=== PATIENT | female | born 1950 | race Caucasian/White ===

== ENCOUNTER → 2016-12-19 | Outpatient (CLI) | payer BC ==
--- NOTE | 2016-12-19 17:26 | CT ---
EXAMINATION TYPE: CT chest w con DATE OF EXAM: 12/19/2016 COMPARISON: NONE HISTORY: 66-year-old female Abnormal findings on CXR. TECHNIQUE: Contiguous axial scanning of the chest after the administration of 100 mL of Omnipaque 300 . Coronal/sagittal reconstructions performed. CT DLP: 447mGycm. Automatic exposure control utilized for a dose reduction. FINDINGS: The heart is normal size without pericardial effusion. Coronary vessel calcifications are present in remarkable for coronary artery disease. Mild atherosclerotic arch calcifications with conventional arch vessel branching anatomy. There is a 3.2 cm intermediate density mass (11.8 Hounsfield units) in the right para-aortic/preverte bral region of the lower thorax. No adjacent mass effect or bony destruction. Otherwise, no thoracic lymphadenopathy seen. Visualized upper abdomen with suspected cholelithiasis and partially visualized AAA measuring up to 3 .2 cm on coronal series. Cyst within the medial left kidney. There is moderate to severe centrilobular emphysema. Tiny patch of groundglass in the superior segmen t right lower lobe nonspecific could represent some interstitial scarring or a small infectious/infla mmatory focus. No consolidation or pleural effusion. Bones: Prior L3 vertebroplasty. Mild multilevel degenerative disc disease. Anterior endplate spondylo sis. No osseous destructive process. IMPRESSION: 1. COPD with moderate to severe emphysema. 2. A 3.2 cm intermediate density mass in the lower thoracic right para-aortic/prevertebral region. Di fferential considerations include an abnormally enlarged lymph node, congenital duplication cyst, and neurogenic/nerve sheath tumor. Contrast enhanced chest MRI could help determine if this lesion enhan alvaro. 3. AAA only partially visualized measuring up to at least 3.2 cm. Consider aortic ultrasound.
== END | disposition home or self-care (01) ==
LOC: RADCTMAIN 15:59
PROVIDERS: ATTEND Internal Medicine
DX: J43.9 Emphysema, unspecified (principal)
CPT/HCPCS: 71260; Q9967

== ENCOUNTER → 2017-02-01 | Outpatient (CLI) | payer OTHER ==
--- NOTE | 2017-02-01 09:09 | US ---
EXAMINATION TYPE: US duplex aorta DATE OF EXAM: 02/01/2017 COMPARISON: NONE CLINICAL HISTORY: I71.4 Abd Aneurysm Without Mention Of Rupture. 3.2cm AAA seen on recent CT, follow up u/s TECHNIQUE: Multiple sonographic images of the abdominal aorta were obtained. FINDINGS: EXAM MEASUREMENTS: Abdominal Aorta: Proximal: 3.1 x 2.3cm Mid: 2.5 x 2.8cm Distal: 2.5 x 2.3cm Bifurcation: wnl There is moderate atherosclerotic change seen within the abdominal aorta. Infrarenal fusiform aneurys m is present distally measuring 3.2 cm. ENGINE INSPECTOR NOTES: Some exam limitations assessing color flow due to anterior wall plaque formation, otherwise color flow appears wnl. IMPRESSION: Mild aneurysm of the upper abdominal aorta (3.1 cm) as well as a fusiform infrarenal AAA (3.2 cm).
== END | disposition home or self-care (01) ==
LOC: RADUSWWP 08:10
PROVIDERS: ATTEND Internal Medicine
DX: I71.4 Abdominal aortic aneurysm, without rupture (principal)
CPT/HCPCS: 93979

== ENCOUNTER → 2017-02-10 | Outpatient (CLI) | payer OTHER ==
[2017-02-10 19:56] LABS: Non-African American GFR(MDRD) >60 (>60 ml/min/1.73 sqM)
--- NOTE | 2017-02-11 10:18 | MR ---
MR chest with and without contrast HISTORY: Abnormal chest CT, mass and periaortic location Multiplanar multisequence and postcontrast images obtained through the chest following 14 cc MultiHan ce IV Correlation CT chest 12/19/2016 The cystic focus noted on CT is seen in the paraspinal location immediately right lateral to the aort a and anterior to the spine and measures approximately 3.6 x 2.7 x 2.8 cm. The lesion is uniformly T2 hyperintense, T1 hypointense. There is a smooth wall, the lesion is well localized and not infiltrat marlen. There is no appreciable contrast enhancement following gadolinium administration. No pleural eff usion. No evident bone involvement, bone marrow signal is maintained. IMPRESSION: Lesion shows nonaggressive characteristics. 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 Follow-up can be performed to assess for stability.
== END ==
LOC: RADMRIMAIN 19:22
PROVIDERS: ATTEND Surgery
DX: J98.8 Other specified respiratory disorders (principal)
CPT/HCPCS: 82565; 71552; A9577

== ENCOUNTER 2017-03-16 13:23 | Inpatient (IN) | payer OTHER ==
[2017-03-16] MEDS ORDERED: IPRATROPIUM-ALBUTEROL 3 ML NEB INHALATION STA (13:50)
--- NOTE | 2017-03-16 13:54 | ED ---
General Adult HPI - General Chief complaint: Shortness of Breath Stated complaint: Shortness of breath Time Seen by Provider: 03/16/17 13:36 Source: patient, RN notes reviewed Mode of arrival: ambulatory Limitations: no limitations - History of Present Illness Initial comments: Patient is a pleasant [age]-year-old female presenting to the emergency department difficulty breathing. Onset of symptoms was a week ago. Patient did have cough with occasional sputum, no color. Cough has improved. Dyspnea remains. Patient did see a physician on Monday and was given antibiotic, steroid, and inhaler. Patient get some improvement with inhaler. No fever. No chest pain. - Related Data Home Medications Medication Instructions Recorded Confirmed Albuterol Inhaler [Ventolin Hfa 2 puff INHALATION RT-Q6H PRN 03/16/17 03/16/17 Inhaler] Aspirin 325 mg PO DAILY 03/16/17 03/16/17 Levofloxacin [Levaquin] 500 mg PO DAILY 03/16/17 03/16/17 predniSONE See Taper PO DIRECTED 03/16/17 03/16/17 Allergies Allergy/AdvReac Type Severity Reaction Status Date / Time No Known Allergies Allergy Verified 03/16/17 13:51 Review of Systems ROS Statement: Those systems with pertinent positive or pertinent negative responses have been documented in the HPI. ROS Other: All systems not noted in ROS Statement are negative. Constitutional: Denies: fever Eyes: Denies: eye pain ENT: Denies: ear pain Respiratory: Reports: dyspnea Cardiovascular: Denies: chest pain Endocrine: Reports: fatigue Gastrointestinal: Denies: abdominal pain Genitourinary: Denies: dysuria Musculoskeletal: Denies: back pain Skin: Denies: rash Neurological: Denies: weakness Past Medical History Additional Past Medical History / Comment(s): vascular disease History of Any Multi-Drug Resistant Organisms: None Reported Past Surgical History: Hysterectomy, Orthopedic Surgery, Tonsillectomy Additional Past Surgical History / Comment(s): ectopic preg, right shoulder, kyphoplasty Past Psychological History: No Psychological Hx Reported Smoking Status: Current every day smoker Past Alcohol Use History: None Reported Past Drug Use History: None Reported General Exam Limitations: no limitations General appearance: alert, in no apparent distress Head exam: Present: atraumatic Eye exam: Present: normal appearance, PERRL ENT exam: Present: normal oropharynx Neck exam: Present: normal inspection Respiratory exam: Present: decreased breath sounds (Throughout) Cardiovascular Exam: Present: regular rate, normal rhythm GI/Abdominal exam: Present: soft. Absent: tenderness Extremities exam: Absent: pedal edema, calf tenderness Neurological exam: Present: alert Psychiatric exam: Present: normal affect, normal mood Skin exam: Absent: rash Course Vital Signs 03/16/17 03/16/17 03/16/17 13:24 14:06 15:01 Temperature 97.7 F Pulse Rate 70 54 L Respiratory 26 H 22 Rate Blood Pressure 176/82 O2 Sat by Pulse 94 L Oximetry 03/16/17 03/16/17 15:08 15:50 Temperature Pulse Rate 60 62 Respiratory 18 Rate Blood Pressure 137/78 O2 Sat by Pulse 94 L Oximetry EKG Findings - EKG Comments: EKG Findings:: Normal sinus rhythm 63. NC 114. QRS 86. QT 388. QTC 397. Left axis. Normal QRS. Normal ST-T. Medical Decision Making - Medical Decision Making Patient reexamined in updated. Case discussed with Dr. morales, who will admit for Dr. Wolff. - Lab Data Result diagrams: 03/16/17 13:55 03/16/17 13:55 Lab Results 03/16/17 03/16/17 03/16/17 Range/Units 13:55 13:55 13:55 WBC 7.1 (3.8-10.6) k/uL RBC 4.64 (3.80-5.40) m/uL Hgb 14.3 (11.4-16.0) gm/dL Hct 43.6 (34.0-46.0) % MCV 94.0 (80.0-100.0) fL MCH 30.8 (25.0-35.0) pg MCHC 32.8 (31.0-37.0) g/dL RDW 13.0 (11.5-15.5) % Plt Count 281 (150-450) k/uL Neutrophils % 79 % Lymphocytes % 11 % Monocytes % 4 % Eosinophils % 5 % Basophils % 1 % Neutrophils # 5.6 (1.3-7.7) k/uL Lymphocytes # 0.8 L (1.0-4.8) k/uL Monocytes # 0.3 (0-1.0) k/uL Eosinophils # 0.3 (0-0.7) k/uL Basophils # 0.0 (0-0.2) k/uL PT (9.0-12.0) sec INR (<1.2) APTT (22.0-30.0) sec D-Dimer (<0.60) mg/L FEU Sodium 140 (137-145) mmol/L Potassium 4.4 (3.5-5.1) mmol/L Chloride 105 (98-107) mmol/L Carbon Dioxide 25 (22-30) mmol/L Anion Gap 10 mmol/L BUN 15 (7-17) mg/dL Creatinine 0.70 (0.52-1.04) mg/dL Est GFR (MDRD) Af Amer >60 (>60 ml/min/1.73 sqM) Est GFR (MDRD) Non-Af >60 (>60 ml/min/1.73 sqM) Glucose 95 (74-99) mg/dL Calcium 9.8 (8.4-10.2) mg/dL Total Bilirubin 0.4 (0.2-1.3) mg/dL AST 20 (14-36) U/L ALT 32 (9-52) U/L Alkaline Phosphatase 76 (38-126) U/L Total Creatine Kinase 46 (30-135) U/L CK-MB (CK-2) 1.0 (0.0-2.4) ng/mL CK-MB (CK-2) Rel Index 2.2 Troponin I <0.012 (0.000-0.034) ng/mL NT-Pro-B Natriuret Pep pg/mL Total Protein 6.7 (6.3-8.2) g/dL Albumin 3.8 (3.5-5.0) g/dL 03/16/17 03/16/17 Range/Units 13:55 13:55 WBC (3.8-10.6) k/uL RBC (3.80-5.40) m/uL Hgb (11.4-16.0) gm/dL Hct (34.0-46.0) % MCV (80.0-100.0) fL MCH (25.0-35.0) pg MCHC (31.0-37.0) g/dL RDW (11.5-15.5) % Plt Count (150-450) k/uL Neutrophils % % Lymphocytes % % Monocytes % % Eosinophils % % Basophils % % Neutrophils # (1.3-7.7) k/uL Lymphocytes # (1.0-4.8) k/uL Monocytes # (0-1.0) k/uL Eosinophils # (0-0.7) k/uL Basophils # (0-0.2) k/uL PT 10.4 (9.0-12.0) sec INR 1.0 (<1.2) APTT 23.2 (22.0-30.0) sec D-Dimer 1.84 H (<0.60) mg/L FEU Sodium (137-145) mmol/L Potassium (3.5-5.1) mmol/L Chloride (98-107) mmol/L Carbon Dioxide (22-30) mmol/L Anion Gap mmol/L BUN (7-17) mg/dL Creatinine (0.52-1.04) mg/dL Est GFR (MDRD) Af Amer (>60 ml/min/1.73 sqM) Est GFR (MDRD) Non-Af (>60 ml/min/1.73 sqM) Glucose (74-99) mg/dL Calcium (8.4-10.2) mg/dL Total Bilirubin (0.2-1.3) mg/dL AST (14-36) U/L ALT (9-52) U/L Alkaline Phosphatase (38-126) U/L Total Creatine Kinase (30-135) U/L CK-MB (CK-2) (0.0-2.4) ng/mL CK-MB (CK-2) Rel Index Troponin I (0.000-0.034) ng/mL NT-Pro-B Natriuret Pep 248 pg/mL Total Protein (6.3-8.2) g/dL Albumin (3.5-5.0) g/dL - Radiology Data Radiology results: report reviewed (Computed tomography scan of the chest shows small peripheral pulmonary embolism right middle lobe. Emphysematous changes. Bronchial wall thickening.), image reviewed (Chest x-ray shows COPD changes.) Critical Care Time Critical Care Time: Yes Total Critical Care Time: 32 Disposition Clinical Impression: Acute exacerbation of chronic obstructive airways disease, Pulmonary embolus Disposition: ADMITTED IP TO THIS HOSP Referrals: Ovidio Rogel MD [Primary Care Provider] - 1-2 days Decision Time: 15:57
[2017-03-16 14:13] LABS: Basophils % (A) 1 %; CH 30.5; CHCM 32.6; Eosinophils # (A) 0.3 k/uL (0-0.7); Eosinophils % (A) 5 %; HCT 43.6 % (34.0-46.0); HDW 2.59; HGB 14.3 gm/dL (11.4-16.0); Luc # (Auto) 0.09; Luc % (Auto) 1; Lymphocytes # (A) 0.8 k/uL (1.0-4.8); Lymphocytes % (A) 11 %; MCH 30.8 pg (25.0-35.0); MCHC 32.8 g/dL (31.0-37.0); Mean Platelet Volume 6.9; Monocytes # (A) 0.3 k/uL (0-1.0); Monocytes % (A) 4 %; Neutrophils # (A) 5.6 k/uL (1.3-7.7); Neutrophils % (A) 79 %; RBC 4.64 m/uL (3.80-5.40); WBC 7.1 k/uL (3.8-10.6); WBC (Perox) 7.64
[2017-03-16 14:24] LABS: ALT 32 U/L (9-52); AST 20 U/L (14-36); Alkaline Phosphatase 76 U/L (38-126); Anion Gap 10 mmol/L; Blood Urea Nitrogen 15 mg/dL (7-17); Calcium 9.8 mg/dL (8.4-10.2); Carbon Dioxide 25 mmol/L (22-30); Chloride 105 mmol/L (98-107); Glucose 95 mg/dL (74-99); Non-African American GFR(MDRD) >60 (>60 ml/min/1.73 sqM); Potassium 4.4 mmol/L (3.5-5.1); Sodium 140 mmol/L (137-145); Total Bilirubin 0.4 mg/dL (0.2-1.3); Total Protein 6.7 g/dL (6.3-8.2)
[2017-03-16 14:31] LABS: Partial Thromboplastin Time 23.2 sec (22.0-30.0)
[2017-03-16 14:35] LABS: Prothrombin Time 10.4 sec (9.0-12.0)
--- NOTE | 2017-03-16 14:37 | XR ---
EXAMINATION TYPE: XR chest 2V DATE OF EXAM: 03/16/2017 COMPARISON: CT 12/19/2016 HISTORY: 66 year-old female shortness of breath for one week, difficulty breathing TECHNIQUE: PA and lateral views FINDINGS: Heart is normal size. Mild elongation of the thoracic aorta. Strandy atelectasis in the lower lungs. There is very mild central peribronchial cuffing. Upper lung lucencies and hyperinflation. No consol idation or pleural effusion. Fixation screw proximal right humerus. IMPRESSION: COPD with moderate to severe emphysema. No acute process seen.
[2017-03-16 14:38] LABS: Creatine Kinase 46 U/L (30-135)
[2017-03-16] MEDS ORDERED: RX INFO: IV CONTRAST WAS GIVEN 1 EACH MISC MISCELLANE PRN (14:43)
[2017-03-16 14:51] LABS: Troponin I <0.012 ng/mL (0.000-0.034)
--- NOTE | 2017-03-16 15:27 | CT ---
EXAMINATION TYPE: CT angio chest DATE OF EXAM: 03/16/2017 COMPARISON: 12/19/2016 HISTORY: 66-year-old female with shortness of breath x 1 week. TECHNIQUE: Contiguous axial scanning of the chest performed with IV Contrast, patient injected with 8 0 mL of Omnipaque 350. Coronal/sagittal MIP reconstructions performed. CT DLP: 181.00 mGycm Automated exposure control for dose reduction was used. FINDINGS: The heart is normal size without pericardial effusion. Coronary vessel calcifications are present and are a marker for coronary artery disease. Ascending aorta borderline ectatic at 3.5 cm. There is conventional branching anatomy. Satisfactory opacification of the pulmonary arterial system. There is a small filling defect noted wi thin the distal segmental and subsegmental branch of the right middle lobe pulmonary artery, axial im ages 87 and 88. No additional pulmonary embolus is seen. No thoracic lymphadenopathy. Stable 3.2 cm right sided paravertebral mass in the lower thorax. 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 Evaluation of the lungs shows moderately advanced centrilobular emphysema. There is mild diffuse bron chial wall thickening, slightly increased from prior. Minimal residual groundglass remains in the pos terior right lower lobe, axial image 70. Strandy atelectasis in the inferior lingula. No consolidatio n or pleural effusion. Cyst within the left kidney. Bones: Fixation screw in the proximal right humerus. Endplate spondylosis mid thoracic spine with acc entuated thoracic kyphosis. No osseous destructive process. IMPRESSION: 1. VERY SMALL PERIPHERAL PULMONARY EMBOLUS LOCATED IN A DISTAL SEGMENTAL AND SUBSEGMENTAL BRANCH OF T HE RIGHT MIDDLE LOBE PULMONARY ARTERY. 2. MODERATE TO ADVANCED CENTRILOBULAR EMPHYSEMA. BRONCHIAL WALL THICKENING APPEARS INCREASED FROM RAOUL OR EXAM AND COULD REPRESENT SUPERIMPOSED ASTHMA OR ACUTE BRONCHITIS AND MAY ACCOUNT FOR THE PATIENT'S SYMPTOMS. 3. 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 4. CONSIDER A ONE-YEAR FOLLOW-UP FOR SOME GROUNDGLASS IN THE RIGHT LOWER LOBE. ADENOMATOUS HYPERPLASI A IS WITHIN THE DIFFERENTIAL. Impressions #1 and #[address] Tan in the ER at 3:25 PM.
[2017-03-16] MEDS ORDERED: HEPARIN SODIUM,PORCINE 5,000 UNIT/ML 1 ML VIAL IV ONE (15:57)
[2017-03-16] MEDS ORDERED: methylPREDNISolone SOD SUCCI 125 MG/2 ML VIAL IV STA (15:57)
[2017-03-16] MEDS ORDERED: HEPARIN SODIUM,PORCINE 5,000 UNIT/ML 1 ML VIAL IV PRN (15:57)
[2017-03-16] MEDS ORDERED: IPRATROPIUM-ALBUTEROL 3 ML NEB INHALATION PRN (15:57)
[2017-03-16] MEDS: HEPARIN SODIUM,PORCINE/D5W PMX 25,000 UNIT in DEXTROSE/WATER 1 500ML.BAG IV SCH (16:17)
[2017-03-16] MEDS: IPRATROPIUM-ALBUTEROL 3 ML NEB INHALATION SCH ×2 (16:19→19:28)
--- NOTE | 2017-03-16 23:21 | P.HPIM ---
History of Present Illness H&P Date: 03/16/17 Chief Complaint: Shortness of breath This very pleasant 67-year-old female patient of Dr. Ovidio Shields with chronic stable medical conditions that include COPD, history of left lower extremity DVT , who presented to the emergency department with shortness of breath for about the past week. Endorses a cough with occasional sputum production, no color, short of breath. On Monday patient saw a physician in walk-in clinic and received antibiotics steroids and inhaler. The inhaler helped however she continue to be dyspneic. No complaints of fever, or chest pain. Review of Systems GEN.: [None] EYES: [None] HEENT: [None] NECK: [None] RESPIRATORY: [None] CARDIOVASCULAR: [None] GASTROINTESTINAL: [None] GENITOURINARY: [Leakage of urine] MUSCULOSKELETAL: [lumbar back pain] LYMPHATICS: [None] HEMATOLOGICAL: [None] PSYCHIATRY: [None] NEUROLOGICAL: [Numbness to her feet] Past Medical History Past Medical History: COPD, Deep Vein Thrombosis (DVT), Pneumonia, Vascular Disorder Additional Past Medical History / Comment(s): vascular disease, BRONCHITIS, PAST LT LEG DVT, UTERINE CANCER(SX ONLY), SHINGLES 1997, CATARACTS, AAA "NOT SURE OF SIZE" History of Any Multi-Drug Resistant Organisms: None Reported Past Surgical History: Back Surgery, Hysterectomy, Orthopedic Surgery, Tonsillectomy Additional Past Surgical History / Comment(s): ectopic preg, right shoulder, kyphoplasty Past Anesthesia/Blood Transfusion Reactions: No Reported Reaction Additional Psychological History / Comment(s): No psychiatric history Smoking Status: Current every day smoker Past Alcohol Use History: None Reported, Rare Additional Past Alcohol Use History / Comment(s): none to rare use Past Drug Use History: None Reported Additional Drug Use History / Comment(s): None - Past Family History Mother Family Medical History: Dementia, Hypertension Additional Family Medical History / Comment(s): ALZHEIMERS Father Family Medical History: Myocardial Infarction ([place]) Additional Family Medical History / Comment(s): AT AGE 59 FROM [place] Brother(s) Family Medical History: Myocardial Infarction ([place]) Additional Family Medical History / Comment(s): ALSO AT AGE 59 FROM [place] AND A 2ND BROTHER W/VASCULAR DISEASE. Sister(s) Family Medical History: Cancer Additional Family Medical History / Comment(s): LUNG CANCER(SMOKER) Medications and Allergies Home Medications Medication Instructions Recorded Confirmed Type Albuterol Inhaler [Ventolin Hfa 2 puff INHALATION RT-Q6H PRN 03/16/17 03/16/17 History Inhaler] Aspirin 325 mg PO DAILY 03/16/17 03/16/17 History Levofloxacin [Levaquin] 500 mg PO DAILY 03/16/17 03/16/17 History predniSONE See Taper PO DIRECTED 03/16/17 03/16/17 History Allergies Allergy/AdvReac Type Severity Reaction Status Date / Time No Known Allergies Allergy Verified 03/16/17 13:51 Physical Exam Vitals: Vital Signs Temp Pulse Pulse Resp BP BP Pulse Ox 03/16/17 20:00 98.3 F 64 17 143/81 92 L 03/16/17 19:37 68 03/16/17 19:29 61 03/16/17 18:28 97.6 F 55 L 20 136/70 97 03/16/17 17:48 98.6 F 59 L 18 131/73 94 L 03/16/17 16:26 60 18 155/85 95 03/16/17 15:50 62 18 137/78 94 L 03/16/17 15:08 60 03/16/17 15:01 54 L 03/16/17 14:06 22 03/16/17 13:24 97.7 F 70 26 H 176/82 94 L Intake and Output 03/16/17 03/16/17 03/16/17 06:59 14:59 22:59 Intake Total 98 Balance 98 Intake: Intake, IV Titration 98 Amount Heparin Sodium,Porcine/ 98 D5w Pmx 25,000 unit In Dextrose/Water 1 500ml. bag @ 18 UNITS/KG/HR 24. 49 mls/hr IV .[id number] [facility] Rx#:[id number] Other: Voiding Method Toilet Weight 68.039 kg Patient Weight 03/17/17 06:59 Weight 68.039 kg VITAL SIGNS: [Temperature 98.3, pulse 64, respiratory rate 17, blood pressure 143/81, oxygen saturation 92% on room air BMI 24.2 kg/m] GENERAL: [Average built, lying in bed, appears comfortable yet mildly fidgeting] . EYES: [Pupils equal. Conjunctiva angel]l. HEENT: [External appearance of nose and ears normal, oral cavity grossly normal] . NECK: [JVD not raised; masses not palpable]. HEART: [First and second heart sounds are normal; no edema]. LUNGS:[ Respiratory rate normal; inspiratory and expiratory wheezing noted bilaterally fair airway clearance]. ABDOMEN: [Soft, nontender, liver spleen not palpable, no masses palpable]. LYMPHATICS: [No lymph nodes palpable in the axilla and neck]. PSYCH: [Alert and oriented x3; mood and affect angel]l. NEUROLOGICAL: [Cranial nerves grossly intact; no facial asymmetry, power and sensation grossly intact]. Results CBC & Chem 7: 03/17/17 07:03 03/16/17 13:55 Labs: Abnormal Lab Results - Last 24 Hours (Table) 03/16/17 03/16/17 03/16/17 Range/Units 13:55 13:55 21:57 Lymphocytes # 0.8 L (1.0-4.8) k/uL APTT 57.5 H (22.0-30.0) sec D-Dimer 1.84 H (<0.60) mg/L FEU Assessment and Plan Plan: ASSESSMENT: -Acute pulmonary embolism right middle lobe in a patient with a history of deep vein thrombosis -Acute exacerbation of chronic obstructive pulmonary disease in a current smoker -IV heparin monitoring -Chronic nicotine dependence and a current smoker. PLAN: Home medications reordered, IV steroids breathing treatments and antibiotics initiated. Pulmonology consulted IV heparin initiated. Patient counseled at length on the need to quit smoking. Plan of care discussed the patient at the bedside and she is in agreement. We'll continue to follow closely.
[2017-03-16] MEDS: methylPREDNISolone SOD SUCCI 125 MG/2 ML VIAL IV SCH (23:36)
[2017-03-17] MEDS: methylPREDNISolone SOD SUCCI 125 MG/2 ML VIAL IV SCH ×3 (06:41→18:17)
[2017-03-17 06:44] LABS: Glucose,Whole Blood 130 mg/dL (75-99)
[2017-03-17 07:48] LABS: Basophils % (A) 0 %; CH 31.5; CHCM 33.2; Eosinophils % (A) 0 %; HCT 46.3 % (34.0-46.0); HDW 2.53; HGB 14.6 gm/dL (11.4-16.0); Luc # (Auto) 0.06; Luc % (Auto) 1; Lymphocytes % (A) 13 %; MCH 30.1 pg (25.0-35.0); MCHC 31.5 g/dL (31.0-37.0); MCV 95.5 fL (80.0-100.0); Mean Platelet Volume 7.4; Monocytes # (A) 0.2 k/uL (0-1.0); Monocytes % (A) 3 %; Neutrophils % (A) 83 %; RBC 4.85 m/uL (3.80-5.40); RDW 13.8 % (11.5-15.5); WBC 7.3 k/uL (3.8-10.6); WBC (Perox) 7.07
[2017-03-17] MEDS: IPRATROPIUM-ALBUTEROL 3 ML NEB INHALATION SCH ×4 (08:17→20:08)
[2017-03-17] MEDS: LEVOFLOXACIN 500 MG TAB PO SCH (09:05)
[2017-03-17] MEDS: HEPARIN SODIUM,PORCINE/D5W PMX 25,000 UNIT in DEXTROSE/WATER 1 500ML.BAG IV SCH (12:37)
--- NOTE | 2017-03-17 15:14 | US ---
EXAMINATION TYPE: US venous doppler duplex LE DATE OF EXAM: 03/17/2017 2:46 PM COMPARISON: NONE CLINICAL HISTORY: pulmonary embolism, swelling in left leg. SIDE PERFORMED: Bilateral TECHNIQUE: The lower extremity deep venous system is examined utilizing real time linear array sonog sawyer with graded compression, doppler sonography and color-flow sonography. VESSELS IMAGED: External Iliac Vein (EIV) Common Femoral Vein Deep Femoral Vein Greater Saphenous Vein * Femoral Vein Popliteal Vein Small Saphenous Vein * Proximal Calf Veins (* superficial vessels) Right Leg: Negative for DVT Left Leg: Negative for DVT. Positive for non-occluding SVT in the left greater saphenous vein. IMPRESSION: 1. No deep venous thrombosis lower extremities. 2. Note is made of nonoccluding thrombus within the greater saphenous vein in left leg, non deep veno us thrombosis.
--- NOTE | 2017-03-17 16:09 | P.CNPUL ---
History of Present Illness Consult date: 03/17/17 Reason for consult: dyspnea History of present illness: 66-year-old female patient female patient, with known history of COPD, who presented yesterday to emergency department because of worsening shortness of breath, cough, chest congestion and wheezing. Her presentation was typical of an acute COPD exacerbation. Her primary care physician is Dr. Wolff. Note that she has also a remote history of DVT of the left lower extremities that this occurred back in 2009. The patient back then received a course of anticoagulation for a total of 6 months with warfarin and subsequently that the granulation was stopped. She has peripheral vascular disease and chronic venous stasis in the left lower extremity today to along with some superficial varicose veins. In the burst department, computed tomography scan of the chest was done and it showed a questionable, very questionable small peripheral pulmonary embolism located in the distal segmental and subsegmental branch of the right middle lobe pulmonary artery. There was obvious advanced centrilobular emphysema and bronchial wall thickening. 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 The d-dimer was at 1.84. The Doppler of the lower extremity was done and showed a nonoccluding thrombus within the greater saphenous vein in the left lower extremity. The vein is of the superficial venous system, and the greater saphenous vein on the left. No deep vein thrombosis. No angina. No change in mental status. No hemoptysis. No pleurisy. Review of Systems Constitutional: Reports fatigue, Reports weakness Eyes: denies blurred vision, denies bulging eye, denies decreased vision Ears: deny: decreased hearing, ear discharge, earache, tinnitus Ears, nose, mouth and throat: Denies headache, Denies sore throat Cardiovascular: Denies chest pain, Denies shortness of breath Respiratory: Reports cough, Reports dyspnea, Reports wheezing Gastrointestinal: Denies abdominal pain, Denies diarrhea, Denies nausea, Denies vomiting Genitourinary: Denies dysuria, Denies hematuria Musculoskeletal: Denies myalgias Musculoskeletal: left: ankle swelling, absent: ankle pain, ankle stiffness Integumentary: Denies pruritus, Denies rash Neurological: Denies numbness, Denies weakness Psychiatric: Denies anxiety, Denies depression Endocrine: Denies fatigue, Denies weight change Past Medical History Past Medical History: COPD, Deep Vein Thrombosis (DVT), Pneumonia, Vascular Disorder Additional Past Medical History / Comment(s): COPD, peripheral vascular disease , left lower extremity DVT 2009, uterine cancer with a previous hysterectomy, shingles 1996, cataracts, questionable history of abdominal aortic aneurysm History of Any Multi-Drug Resistant Organisms: None Reported Past Surgical History: Back Surgery, Hysterectomy, Orthopedic Surgery, Tonsillectomy Additional Past Surgical History / Comment(s): ectopic preg, right shoulder, kyphoplasty Past Anesthesia/Blood Transfusion Reactions: No Reported Reaction Smoking Status: Current every day smoker - Past Family History Mother Family Medical History: Dementia, Hypertension Additional Family Medical History / Comment(s): ALZHEIMERS Father Family Medical History: Myocardial Infarction (MD) Additional Family Medical History / Comment(s): AT AGE 59 FROM [place] Brother(s) Family Medical History: Myocardial Infarction (MD) Additional Family Medical History / Comment(s): ALSO AT AGE 59 FROM [place] AND A 2ND BROTHER W/VASCULAR DISEASE. Sister(s) Family Medical History: Cancer Additional Family Medical History / Comment(s): LUNG CANCER(SMOKER) Medications and Allergies Home Medications Medication Instructions Recorded Confirmed Type Albuterol Inhaler [Ventolin Hfa 2 puff INHALATION RT-Q6H PRN 03/16/17 03/16/17 History Inhaler] Aspirin 325 mg PO DAILY 03/16/17 03/16/17 History Levofloxacin [Levaquin] 500 mg PO DAILY 03/16/17 03/16/17 History predniSONE See Taper PO DIRECTED 03/16/17 03/16/17 History Allergies Allergy/AdvReac Type Severity Reaction Status Date / Time No Known Allergies Allergy Verified 03/16/17 13:51 Physical Exam Vitals: Vital Signs Temp Pulse Pulse Resp BP BP BP 03/17/17 15:46 68 03/17/17 12:00 97.8 F 54 L 18 129/69 03/17/17 08:28 68 03/17/17 08:18 60 03/17/17 08:00 97.9 F 60 16 129/68 03/17/17 04:00 97.5 F L 56 L 18 155/74 03/17/17 00:00 67 16 126/61 03/16/17 20:00 98.3 F 64 17 143/81 03/16/17 19:37 68 09/21/17 19:29 61 03/16/17 18:28 97.6 F 55 L 20 136/70 03/16/17 17:48 98.6 F 59 L 18 131/73 03/16/17 16:26 60 18 155/85 Pulse Ox 03/17/17 15:46 03/17/17 12:00 03/17/17 08:28 03/17/17 08:18 94 L 03/17/17 08:00 94 L 03/17/17 04:00 96 03/17/17 00:00 93 L 03/16/17 20:00 92 L 03/16/17 19:37 03/16/17 19:29 03/16/17 18:28 97 03/16/17 17:48 94 L 03/16/17 16:26 95 Intake and Output 03/17/17 03/17/17 03/17/17 06:59 14:59 22:59 Intake Total 172.655 325.309 Output Total 1000 Balance 172.655 -674.691 Intake: Intake, IV Titration 172.655 325.309 Amount Heparin Sodium,Porcine/ 172.655 325.309 D5w Pmx 25,000 unit In Dextrose/Water 1 500ml. bag @ 18 UNITS/KG/HR 24. 49 mls/hr IV .[id number] [facility] Rx#:[id number] Output: Urine 1000 Other: Voiding Method Bedside Commode Toilet # Voids 1 0 Weight 67.7 kg Patient is calm and comfortable likely distress.Head exam was generally normal. There was no scleral icterus or corneal arcus. Mucous membranes were moist.Neck was supple and without jugular venous distension, thyromegaly, or carotid bruits. Carotids were easily palpable bilaterally. There was no adenopathy. Lung sounds are diminished in the strongest of expiratory phase of breathing and diffuse expiratory wheezes throughout lung beatty bilaterally.Cardiac exam revealed the PMI to be normally situated and sized. The rhythm was regular and no extrasystoles were noted during several minutes of auscultation. The first and second heart sounds were normal and physiologic splitting of the second heart sound was noted. There were no murmurs, rubs, clicks, or gallops.Abdominal exam revealed normal bowel sounds. The abdomen was soft, non- tender, and without masses, organomegaly, or appreciable enlargement of the abdominal aorta. Extremities show varicose veins in the lower extremities more so on the left. There is also evidence of chronic venous stasis. Left lower extremities slightly swollen compared to the right. Skin is negative for any ulcers or wounds or cellulitis. Skeletal examination shows no evidence of any arthritis or joint deformities. Results - Laboratory Findings CBC and BMP: 03/17/17 07:03 03/16/17 13:55 PT/INR, D-dimer PT 10.4 sec (9.0-12.0) 03/16/17 13:55 INR 1.0 (<1.2) 03/16/17 13:55 D-Dimer 1.84 mg/L FEU (<0.60) H 03/16/17 13:55 Abnormal lab findings: Abnormal Labs 03/16/17 03/16/17 03/16/17 13:55 13:55 21:57 Hct Lymphocytes # 0.8 L APTT 57.5 H D-Dimer 1.84 H POC Glucose (mg/dL) 03/17/17 03/17/17 03/17/17 06:42 07:03 07:03 Hct 46.3 H Lymphocytes # APTT 56.5 H D-Dimer POC Glucose (mg/dL) 130 H - Diagnostic Findings CT scan - chest: image reviewed Assessment and Plan Plan: Assessment 1 acute COPD exacerbation with secondary shortness of breath. The patient has advanced centrilobular emphysema based on the CAT scan findings. She is a chronic smoker. Her presentation is typical of an acute COPD exacerbation 2 questionable right-sided segmental and subsegmental pulmonary embolism based on CT angios the chest. The patient has a remote history of DVT of left lower extremity back in 2009 in the most current Doppler of the lower extremity showing a superficial thrombosis in the superficial saphenous system. There is no evidence of any deep vein thrombosis. Currently the patient IV heparin. D- dimer is mildly elevated 3 smoker 4 uterine cancer with previous hysterectomy 5 history of kyphoplasty CORINE Smoking cessation counseling was done. The patient was told that her COPD exacerbation is the main cause for shortness of breath. The findings on the CT angios the chest is not certain and possibility of pulmonary embolus and contributing to her shortness of breath is doubtful at this stage. Nevertheless based on the observed filling defects and observed thrombosis with an superficial veins of the left lower extremity, it's reasonable to put this patient in 3-6 months of anticoagulation and then stop. Recommend also elastic compression stockings or lower extremity especially on the left. Recommend outpatient follow-up regarding her COPD with poorly function test and further adjustments in her inhalers as maintenance. The patient will placed on DuoNeb breast units [id number]. The patient is completing a course of systemic steroids to be switched to prednisone burst taper over the next 24 hours. We' ll follow. Case was discussed with Dr. Shahid
--- NOTE | 2017-03-17 17:23 | P.PN ---
Progress Note - Text DATE OF SERVICE: 03/17/2017 PRESENTING COMPLAINT: shortness of breath HISTORY OF PRESENT ILLNESS: 67-year-old female presented with shortness of breath for about a week, cough with occasional sputum production, no color shortness of breath.imaging revealed pulmonary embolism right middle lobe. INTERVAL HISTORY: 03/17/2017: Patient sitting up in bed appears comfortable. Breathing easily. Heparin drip infusing.tolerating her dieteating between 50 and 75% of each meal, ambulating to and from the bathroom without difficulty, last BM prior to admission.patient was to be put on a novel anticoagulant however insurance does not cover it. We' ll explore other options with case management. REVIEW OF SYSTEMS: Done for constitutional ,cardiovascular, GI, pulmonary with relevant findings as above. CURRENT MEDICATIONS DuoNeb, Levaquin, Solu-Medrol heparin IV PHYSICAL EXAM VITAL SIGNS: temperature 98.3, pulse 55, respiratory rate 16, blood pressure 143/67, oxygen saturation 95% on room air. GENERAL APPEARANCE: sitting up in bed, appears comfortable. EYES: Pupils equal. Conjunctiva normal. NECK: JVD not raised. Mass not palpable. RESPIRATORY: Respiratory effort normal. Lungs diminished with expiratory wheezing throughout. CARDIOVASCULAR: First and second sounds normal. No edema. ABDOMEN: Soft. Liver and spleen not palpable. No tenderness. No mass palpable. PSYCHIATRY: Alert and oriented x3. Mood and affect normal. INVESTIGATIONS: White blood cell count7.3, APTT 56.5. ASSESSMENT: -acute pulmonary embolism, right middle lobe, in a patient with a history of deep vein thrombosis. -Acute exacerbation of chronic obstructive pulmonary disease in a current smoker. -IV heparin monitoring. -Chronic nicotine dependence in a current smoker. PLAN: IV steroids breathing treatments and antibiotics continue. IV heparin continues , we'll explore other options to make patient therapeutic to facilitate discharge.plan of care discussed with the patient the bedside she is agreeable. We'll continue to follow. [employer] statement: Patient was seen and examined by nurse practitioner Harper Meier and all elements of the case discussed with attending Dr. Shahid
[2017-03-17] MEDS: ENOXAPARIN 100 MG/ML SYRINGE SQ SCH (17:56)
[2017-03-17] MEDS ORDERED: WARFARIN 7.5 MG TAB PO SCH (18:00)
[2017-03-17 20:16] LABS: Glucose,Whole Blood 148 mg/dL (75-99)
[2017-03-17 21:21] VITALS: RESP 18
--- NOTE | 2017-03-17 23:22 | PN ---
PROGRESS NOTE DATE OF SERVICE: 03/17/2017 ATTENDING NOTE: This patient seen and examined by me. I discussed with nurse practitioner, Ms. Meier. Breathing is a bit better, lying in bed. EXAM: LUNGS: Decreased breath sounds. Mild prolonged expiration. White count 7.3. ASSESSMENT: 1. Acute chronic obstructive pulmonary disease exacerbation in a smoker. 2. Possible acute pulmonary embolism. 3. IV heparin monitoring. 4. Chronic nicotine dependence. PLAN: Patient counseled against smoking. Started on Coumadin. Discussed with Dr. Mcbride. Will see above if additional NOACs are covered by insurance so she can be discharged home with the same. MMODL / IJN: [id number] /
[2017-03-17] MEDS: methylPREDNISolone SOD SUCCI 40 MG/ML 1 ML VIAL IV SCH (23:35)
[2017-03-18 06:28] VITALS: BP 145/76; TEMP 97.6
[2017-03-18 07:41] LABS: Glucose,Whole Blood 93 mg/dL (75-99)
[2017-03-18] MEDS: IPRATROPIUM-ALBUTEROL 3 ML NEB INHALATION SCH ×2 (07:54→11:46)
[2017-03-18] MEDS: HEPARIN SODIUM,PORCINE/D5W PMX 25,000 UNIT in DEXTROSE/WATER 1 500ML.BAG IV SCH (08:09)
[2017-03-18] MEDS: methylPREDNISolone SOD SUCCI 40 MG/ML 1 ML VIAL IV SCH (08:11)
[2017-03-18] MEDS: LEVOFLOXACIN 500 MG TAB PO SCH (08:12)
[2017-03-18] MEDS: ENOXAPARIN 100 MG/ML SYRINGE SQ SCH (08:12)
[2017-03-18] MEDS: NICOTINE 7MG/24HR PATCH TRANSDERM SCH ×2 (08:13→08:18)
[2017-03-18 08:24] LABS: Basophils % (A) 0 %; CH 30.4; Eosinophils % (A) 0 %; HCT 46.6 % (34.0-46.0); HDW 2.47; HGB 15.1 gm/dL (11.4-16.0); Luc # (Auto) 0.06; Luc % (Auto) 1; Lymphocytes % (A) 8 %; MCH 30.8 pg (25.0-35.0); MCHC 32.3 g/dL (31.0-37.0); MCV 95.4 fL (80.0-100.0); Mean Platelet Volume 7.3; Monocytes # (A) 0.4 k/uL (0-1.0); Monocytes % (A) 3 %; Neutrophils # (A) 10.8 k/uL (1.3-7.7); Neutrophils % (A) 88 %; RBC 4.88 m/uL (3.80-5.40); RDW 12.9 % (11.5-15.5); WBC 12.2 k/uL (3.8-10.6); WBC (Perox) 12.64
[2017-03-18 12:34] LABS: Glucose,Whole Blood 115 mg/dL (75-99)
[2017-03-18 12:45] VITALS: BMI 24.0
[2017-03-18 13:25] VITALS: PULSE 65
--- NOTE | 2017-03-18 14:03 | P.PN ---
Subjective 66-year-old female patient female patient, with known history of COPD, who presented yesterday to emergency department because of worsening shortness of breath, cough, chest congestion and wheezing. Her presentation was typical of an acute COPD exacerbation. Her primary care physician is Dr. Wloff. Note that she has also a remote history of DVT of the left lower extremities that this occurred back in 2009. The patient back then received a course of anticoagulation for a total of 6 months with warfarin and subsequently that the granulation was stopped. She has peripheral vascular disease and chronic venous stasis in the left lower extremity today to along with some superficial varicose veins. In the burst department, computed tomography scan of the chest was done and it showed a questionable, very questionable small peripheral pulmonary embolism located in the distal segmental and subsegmental branch of the right middle lobe pulmonary artery. There was obvious advanced centrilobular emphysema and bronchial wall thickening. 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 The d-dimer was at 1.84. The Doppler of the lower extremity was done and showed a nonoccluding thrombus within the greater saphenous vein in the left lower extremity. The vein is of the superficial venous system, and the greater saphenous vein on the left. No deep vein thrombosis. No angina. No change in mental status. No hemoptysis. No pleurisy. On 03/15/2017 the patient is doing well without any significant complaints. She is being treated for acute COPD exacerbation. At the same time she is on Lovenox and she is also being Evaluated with warfarin regarding her questionable pulmonary embolism. Doppler of the lower extremities was done and the patient has a superficial vein thrombosis. Without is reasonable to anticoagulated patient accordingly. No complaints. No chest pain. No hemoptysis. No angina. No pleurisy. No hemoptysis. No other complaints otherwise. No other significant events over the past 24 hours Objective - Vital Signs Vital signs: Vital Signs Temp 97.6 F 03/18/17 06:27 Pulse 60 03/18/17 11:56 Resp 18 03/18/17 08:00 BP 145/76 03/18/17 06:27 Pulse Ox 95 03/18/17 06:27 Intake & Output 03/17/17 03/18/17 03/18/17 18:59 06:59 18:59 Intake Total 325.148 040 5872 Output Total 1000 2000 Balance -674.691 150 -920 Weight 67.7 kg 67.7 kg Intake: Intake, IV Titration 325.309 Amount Heparin Sodium,Porcine/ 325.309 D5w Pmx 25,000 unit In Dextrose/Water 1 500ml. bag @ 18 UNITS/KG/HR 24. 49 mls/hr IV .[id number] [facility] Rx#:[id number] Oral 150 1080 Output: Urine 1000 2000 Other: Voiding Method Toilet Toilet Toilet # Voids 2 1 3 - Exam Patient is calm and comfortable likely distress.Head exam was generally normal. There was no scleral icterus or corneal arcus. Mucous membranes were moist.Neck was supple and without jugular venous distension, thyromegaly, or carotid bruits. Carotids were easily palpable bilaterally. There was no adenopathy. Lung sounds are diminished in the strongest of expiratory phase of breathing and diffuse expiratory wheezes throughout lung beatty bilaterally.Cardiac exam revealed the PMI to be normally situated and sized. The rhythm was regular and no extrasystoles were noted during several minutes of auscultation. The first and second heart sounds were normal and physiologic splitting of the second heart sound was noted. There were no murmurs, rubs, clicks, or gallops.Abdominal exam revealed normal bowel sounds. The abdomen was soft, non- tender, and without masses, organomegaly, or appreciable enlargement of the abdominal aorta. Extremities show varicose veins in the lower extremities more so on the left. There is also evidence of chronic venous stasis. Left lower extremities slightly swollen compared to the right. Skin is negative for any ulcers or wounds or cellulitis. Skeletal examination shows no evidence of any arthritis or joint deformities. - Labs CBC & Chem 7: 03/18/17 07:38 03/16/17 13:55 Labs: Abnormal Lab Results - Last 24 Hours (Table) 03/17/17 03/18/17 03/18/17 Range/Units 20:14 07:38 12:32 WBC 12.2 H (3.8-10.6) k/uL Hct 46.6 H (34.0-46.0) % Neutrophils # 10.8 H (1.3-7.7) k/uL POC Glucose (mg/dL) 148 H 115 H (75-99) mg/dL Microbiology - Last 24 Hours (Table) 03/16/17 13:55 Blood Culture - Preliminary Blood No Growth after 24 hours Assessment and Plan Plan: Assessment 1 acute COPD exacerbation with secondary shortness of breath. The patient has advanced centrilobular emphysema based on the CAT scan findings. She is a chronic smoker. Her presentation is typical of an acute COPD exacerbation is clinically the patient is improving as a COPD exacerbation is being treated. 2 questionable right-sided segmental and subsegmental pulmonary embolism based on CT angios the chest. The patient has a remote history of DVT of left lower extremity back in 2009 in the most current Doppler of the lower extremity showing a superficial thrombosis in the superficial saphenous system. There is no evidence of any deep vein thrombosis. Currently the patient IV heparin. D- dimer is mildly elevated. I discussed the case with the hospitalist and the patient will be maintained on Coumadin for the next 3-6 months. Meanwhile bridging therapy with Lovenox was offered. 3 smoker 4 uterine cancer with previous hysterectomy 5 history of kyphoplasty CORINE Smoking cessation counseling was done. Continue the bronchodilators. Continue systemic steroids. Continue Lovenox. Warfarin anticoagulation and this can be also on outpatient basis if the patient has coverage for Lovenox. Anti- coagulation for a total of 6 months. We'll be glad to follow her up on outpatient basis.
--- NOTE | 2017-03-18 22:13 | P.DS ---
Providers Date of admission: 03/16/17 15:57 Expected date of discharge: 03/18/17 Attending physician: Junior Shahid Consults: 03/16/17 15:57 Consult Physician Routine Consulting Provider: Betty Mcbride Consult Reason/Comments: dyspnea, review ct please Do you want consulting provider notified?: Yes Primary care physician: [facility] Course: FINAL DIAGNOSES: -acute pulmonary embolism, right middle lobe, in a patient with a history of deep vein thrombosis. -Acute exacerbation of chronic obstructive pulmonary disease in a current smoker. -IV heparin monitoring. -Chronic nicotine dependence in a current smoker. HOSPTIAL COURSE: 67-year-old female with a history of COPD, and a remote history of DVT, who presented with shortness of breath for about a week cough and occasional sputum production with no color,, imaging revealed pulmonary embolus in the right middle lobe was admitted for the same. Pulmonology consulted, received treatment for COPD exacerbation and pulmonary embolism. Received bronchodilators, systemic steroids Lovenox and warfarin for anticoagulation needs. Anticoagulation will likely last for 6 months. Breathing improved, anticoagulation needs were met. Patient tolerated her diet, ambulate in the room and garcía ways, moved her bowels. Counseling for so smoking cessation was performed patient verbalized understanding. Overall condition stabilized and patient is stable for discharge. PHYSICAL EXAM: CARDIOVASCULAR: First and second sounds noted no edema RESPIRATORY: Respiratory effort normal, breath sounds diminished bilaterally Patient was seen and examined by nurse practitioner Harper Meier in all elements of the case discussed with attending Dr. Shahid DISPOSITION: Discharge home Patient Condition at Discharge: Stable Plan - Discharge Summary New Discharge Prescriptions: New Nicotine 7Mg/24Hr Patch [Habitrol] 1 patch TRANSDERM DAILY patch Ipratropium Campbell [Atrovent Hfa] 2 puff INHALATION QID #1 inhaler Warfarin [Coumadin] 5 mg PO DAILY #30 tab Enoxaparin [Lovenox] 100 mg SQ DAILY #5 syr Continue Albuterol Inhaler [Ventolin Hfa Inhaler] 2 puff INHALATION RT-Q6H PRN PRN Reason: Shortness Of Breath predniSONE See Taper PO DIRECTED #20 Discontinued Aspirin 325 mg PO DAILY Discharge Medication List Albuterol Inhaler [Ventolin Hfa Inhaler] 2 puff INHALATION RT-Q6H PRN 03/16/17 [ History] Enoxaparin [Lovenox] 100 mg SQ DAILY #5 syr 03/18/17 [Rx] Ipratropium Campbell [Atrovent Hfa] 2 puff INHALATION QID #1 inhaler 03/18/17 [Rx ] Nicotine 7Mg/24Hr Patch [Habitrol] 1 patch TRANSDERM DAILY patch 03/18/17 [Rx] Warfarin [Coumadin] 5 mg PO DAILY #30 tab 03/18/17 [Rx] predniSONE See Taper PO DIRECTED #20 03/18/17 [Rx] Follow up Appointment(s)/Referral(s): Ovidio Rogel MD [Primary Care Provider] - 3 Days (Patient to call Dr. Rogel's office Monday to schedule follow up appointment. The office is closed at time of discharge.) Betty Mcbride MD [STAFF PHYSICIAN] - 1 Week (Patient to call Dr. Mcbride's office Monday to schedule follow up appointment. The office is closed at time of discharge.) Ambulatory/Diagnostic Orders: Complete Blood Count w/diff [LAB.AMB] Time Frame: 03/21/17, Location: Determined By Patient Prothrombin Time INR [LAB.AMB] Time Frame: 03/21/17, Location: Determined By Patient Patient Instructions/Handouts: Ipratropium (By breathing), Prednisone (By mouth ), Warfarin (By mouth), Enoxaparin (By injection), COPD (Chronic Obstructive Pulmonary Disease) (DC) Activity/Diet/Wound Care/Special Instructions: elastic compression stockings particularly on the L lower extremity-give before dc start lovenox from 03/19/17 Discharge Disposition: HOME SELF-CARE
--- NOTE | 2017-03-19 14:27 | DS ---
DISCHARGE SUMMARY DATE OF SERVICE: 03/18/17. ATTENDING NOTE: Patient seen and examined by me. I discussed with my nurse practitioner Ms. Meier. The patient is doing better. Breathing is stable. EXAM: LUNGS: Improved air entry. CARDIOVASCULAR: First and second sounds normal. Patient is counseled about smoking. Patient will receive at least 3 months of anticoagulation. Care was discussed with the patient. FINAL DIAGNOSIS: Acute chronic obstructive pulmonary disease exacerbation along with acute pulmonary embolism. Going home on Coumadin with Lovenox overlap. Discharge planning more than 35 minutes. MMODL / IJN: [id number] /
== END 2017-03-18 15:05 | disposition home or self-care (01) | DRG 190 ==
LOC: EC 13:23 → 6SEL 15:57 → 5MS5E 03-17 10:57
PROVIDERS: ADMIT Hospitalist; ATTEND Hospitalist
DX: J44.1 Chronic obstructive pulmonary disease with (acute) exacerbation (principal); I26.99 Other pulmonary embolism without acute cor pulmonale; I82.492 Acute embolism and thrombosis of other specified deep vein of left lower extremity; F17.200 Nicotine dependence, unspecified, uncomplicated; I73.9 Peripheral vascular disease, unspecified; I83.90 Asymptomatic varicose veins of unspecified lower extremity; I87.8 Other specified disorders of veins; J43.2 Centrilobular emphysema; Z79.01 Long term (current) use of anticoagulants; Z79.82 Long term (current) use of aspirin; Z80.1 Family history of malignant neoplasm of trachea, bronchus and lung; Z82.0 Family history of epilepsy and other diseases of the nervous system; Z82.49 Family history of ischemic heart disease and other diseases of the circulatory system; Z85.42 Personal history of malignant neoplasm of other parts of uterus; Z90.710 Acquired absence of both cervix and uterus
CPT/HCPCS: 36415; 71020; 71275; 80053; 82550; 82553; 83880; 84484; 85025; 85379; 85610; 85730; 87040; 93005; 93970; 94640; 94760; 96365; 96366; 96375; 96376; 99291

== ENCOUNTER → 2017-04-06 | Outpatient (CLI) | payer MEDICARE, OTHER ==
--- NOTE | 2017-04-06 10:51 | MM ---
Reason for exam: screening (asymptomatic). Baseline mammogram. History: Patient is postmenopausal and has history of other cancer at age 29. Physical Findings: Nurse did not find any significant physical abnormalities on exam. MG Screening Mammo w CAD Bilateral CC and MLO view(s) were taken. There are scattered fibroglandular densities. Benign calcifications. There is no discrete abnormality. These results were verbally communicated with the patient and result sheet given to the patient on 04/06/17. ASSESSMENT: Benign, BI-RAD 2 RECOMMENDATION: Routine screening mammogram of both breasts in 1 year.
== END | disposition home or self-care (01) ==
LOC: RADMAMWWP 10:04
PROVIDERS: ATTEND Internal Medicine
DX: Z12.31 Encounter for screening mammogram for malignant neoplasm of breast (principal)

== ENCOUNTER 2017-09-28 11:12 | Observation (INO) | payer MEDICARE, OTHER ==
[2017-09-28] MEDS ORDERED: methylPREDNISolone SOD SUCCI 125 MG/2 ML VIAL IV STA (11:50)
[2017-09-28] MEDS ORDERED: IPRATROPIUM-ALBUTEROL 3 ML NEB INHALATION STA (11:50)
[2017-09-28 12:08] LABS: Basophils % (A) 0 %; Eosinophils % (A) 1 %; HCT 41.1 % (34.0-46.0); HGB 14.1 gm/dL (11.4-16.0); Lymphocytes # (A) 1.5 k/uL (1.0-4.8); Lymphocytes % (A) 31 %; MCH 29.4 pg (25.0-35.0); MCHC 34.3 g/dL (31.0-37.0); MCV 85.8 fL (80.0-100.0); Mean Platelet Volume 7.1; Monocytes # (A) 0.2 k/uL (0-1.0); Monocytes % (A) 4 %; Neutrophils # (A) 2.9 k/uL (1.3-7.7); Neutrophils % (A) 61 %; Platelet Count 277 k/uL (150-450); RBC 4.79 m/uL (3.80-5.40); RDW 13.2 % (11.5-15.5); WBC 4.7 k/uL (3.8-10.6)
[2017-09-28 12:23] LABS: INR 1.1 (<1.2); Partial Thromboplastin Time 26.7 sec (22.0-30.0); Prothrombin Time 10.7 sec (9.0-12.0)
--- NOTE | 2017-09-28 12:33 | ED ---
SOB HPI - General Chief Complaint: Shortness of Breath Stated Complaint: MIAN, Cough Time Seen by Provider: 09/28/17 11:20 Source: patient, RN notes reviewed Mode of arrival: wheelchair Limitations: no limitations - History of Present Illness Initial Comments: this is a 67-year-old female presents emergency Department chief complaint of shortness of breath. She's been having shortness of breath since Monday. Patient states she has known COPD. She does plan of a cough nonproductive denies any fever, chills, nasal congestion. Patient states that she has some tightness in her chest relates his back to her first of breath and wheezing. She uses inhalers at home she has no nebulizer treatments. Patient denies any nausea, vomiting, diaphoresis. Patient does have a history of blood clots states that she takes Xarelto daily. Patient denies any headache or dizziness denies any focal weakness. - Related Data Home Medications Medication Instructions Recorded Confirmed Albuterol Inhaler [Ventolin Hfa 2 puff INHALATION RT-Q6H PRN 09/28/17 09/28/17 Inhaler] Rivaroxaban [Xarelto] 20 mg PO W/SUPPER 09/28/17 09/28/17 Allergies Allergy/AdvReac Type Severity Reaction Status Date / Time No Known Allergies Allergy Verified 09/28/17 11:43 Review of Systems ROS Statement: Those systems with pertinent positive or pertinent negative responses have been documented in the HPI. ROS Other: All systems not noted in ROS Statement are negative. Past Medical History Past Medical History: Cancer, COPD, Deep Vein Thrombosis (DVT), Pneumonia, Pulmonary Embolus (PE), Vascular Disorder Additional Past Medical History / Comment(s): vascular disease, BRONCHITIS, PAST LT LEG DVT, UTERINE CANCER(SX ONLY), SHINGLES 1997, CATARACTS, AAA "NOT SURE OF SIZE" History of Any Multi-Drug Resistant Organisms: None Reported Past Surgical History: Back Surgery, Hysterectomy, Orthopedic Surgery, Tonsillectomy Additional Past Surgical History / Comment(s): ectopic preg, right shoulderSX, kyphoplasty, Past Anesthesia/Blood Transfusion Reactions: No Reported Reaction Past Psychological History: No Psychological Hx Reported Smoking Status: Current every day smoker Past Alcohol Use History: None Reported - Past Family History Mother Family Medical History: Dementia, Hypertension Additional Family Medical History / Comment(s): ALZHEIMERS Father Family Medical History: Myocardial Infarction ([place]) Additional Family Medical History / Comment(s): AT AGE 59 FROM [place] Brother(s) Family Medical History: Myocardial Infarction ([place]) Additional Family Medical History / Comment(s): ALSO AT AGE 59 FROM [place] AND A 2ND BROTHER W/VASCULAR DISEASE. Sister(s) Family Medical History: Cancer Additional Family Medical History / Comment(s): LUNG CANCER(SMOKER) General Exam Limitations: no limitations General appearance: alert, in no apparent distress Head exam: Present: atraumatic, normocephalic, normal inspection Eye exam: Present: normal appearance, PERRL, EOMI. Absent: scleral icterus, conjunctival injection, periorbital swelling ENT exam: Present: normal exam, normal oropharynx, mucous membranes moist Neck exam: Present: normal inspection, full ROM. Absent: tenderness, meningismus, lymphadenopathy Respiratory exam: Present: respiratory distress (mild), wheezes, decreased breath sounds. Absent: normal lung sounds bilaterally, rales, rhonchi, stridor Cardiovascular Exam: Present: regular rate, normal rhythm, normal heart sounds. Absent: systolic murmur, diastolic murmur, rubs, gallop, clicks GI/Abdominal exam: Present: soft, normal bowel sounds. Absent: distended, tenderness, guarding, rebound, rigid Neurological exam: Present: alert, oriented X3, CN II-XII intact Skin exam: Present: warm, dry, intact, normal color. Absent: rash Course Vital Signs 09/28/17 09/28/17 09/28/17 11:15 11:58 12:17 Temperature 97.6 F Pulse Rate 64 51 L 54 L Respiratory 18 Rate Blood Pressure 156/74 O2 Sat by Pulse 92 L Oximetry - Reevaluation(s) Reevaluation #1: 09/28/17 13:06 patient had minimal improvement after 2 DuoNeb treatments and steroids. Will be given 3rd breathing treatment this time Medical Decision Making - Lab Data Result diagrams: 09/28/17 11:50 09/28/17 11:50 Lab Results 09/28/17 09/28/17 09/28/17 Range/Units 11:50 11:50 11:50 WBC 4.7 (3.8-10.6) k/uL RBC 4.79 (3.80-5.40) m/uL Hgb 14.1 (11.4-16.0) gm/dL Hct 41.1 (34.0-46.0) % MCV 85.8 (80.0-100.0) fL MCH 29.4 (25.0-35.0) pg MCHC 34.3 (31.0-37.0) g/dL RDW 13.2 (11.5-15.5) % Plt Count 277 (150-450) k/uL Neutrophils % 61 % Lymphocytes % 31 % Monocytes % 4 % Eosinophils % 1 % Basophils % 0 % Neutrophils # 2.9 (1.3-7.7) k/uL Lymphocytes # 1.5 (1.0-4.8) k/uL Monocytes # 0.2 (0-1.0) k/uL Eosinophils # 0.0 (0-0.7) k/uL Basophils # 0.0 (0-0.2) k/uL PT (9.0-12.0) sec INR (<1.2) APTT (22.0-30.0) sec Sodium 144 (137-145) mmol/L Potassium 4.5 (3.5-5.1) mmol/L Chloride 104 (98-107) mmol/L Carbon Dioxide 29 (22-30) mmol/L Anion Gap 11 mmol/L BUN 14 (7-17) mg/dL Creatinine 0.80 (0.52-1.04) mg/dL Est GFR (CKD-EPI)AfAm 90 (>60 ml/min/1.73 sqM) Est GFR (CKD-EPI)NonAf 78 (>60 ml/min/1.73 sqM) Glucose 92 (74-99) mg/dL Calcium 9.9 (8.4-10.2) mg/dL Magnesium 2.2 (1.6-2.3) mg/dL Total Bilirubin 0.6 (0.2-1.3) mg/dL AST 16 (14-36) U/L ALT 21 (9-52) U/L Alkaline Phosphatase 72 (38-126) U/L Total Creatine Kinase 45 (30-135) U/L CK-MB (CK-2) 0.9 (0.0-2.4) ng/mL CK-MB (CK-2) Rel Index 2.0 Troponin I <0.012 (0.000-0.034) ng/mL NT-Pro-B Natriuret Pep pg/mL Total Protein 6.9 (6.3-8.2) g/dL Albumin 4.0 (3.5-5.0) g/dL 09/28/17 09/28/17 Range/Units 11:50 11:50 WBC (3.8-10.6) k/uL RBC (3.80-5.40) m/uL Hgb (11.4-16.0) gm/dL Hct (34.0-46.0) % MCV (80.0-100.0) fL MCH (25.0-35.0) pg MCHC (31.0-37.0) g/dL RDW (11.5-15.5) % Plt Count (150-450) k/uL Neutrophils % % Lymphocytes % % Monocytes % % Eosinophils % % Basophils % % Neutrophils # (1.3-7.7) k/uL Lymphocytes # (1.0-4.8) k/uL Monocytes # (0-1.0) k/uL Eosinophils # (0-0.7) k/uL Basophils # (0-0.2) k/uL PT 10.7 (9.0-12.0) sec INR 1.1 (<1.2) APTT 26.7 (22.0-30.0) sec Sodium (137-145) mmol/L Potassium (3.5-5.1) mmol/L Chloride (98-107) mmol/L Carbon Dioxide (22-30) mmol/L Anion Gap mmol/L BUN (7-17) mg/dL Creatinine (0.52-1.04) mg/dL Est GFR (CKD-EPI)AfAm (>60 ml/min/1.73 sqM) Est GFR (CKD-EPI)NonAf (>60 ml/min/1.73 sqM) Glucose (74-99) mg/dL Calcium (8.4-10.2) mg/dL Magnesium (1.6-2.3) mg/dL Total Bilirubin (0.2-1.3) mg/dL AST (14-36) U/L ALT (9-52) U/L Alkaline Phosphatase (38-126) U/L Total Creatine Kinase (30-135) U/L CK-MB (CK-2) (0.0-2.4) ng/mL CK-MB (CK-2) Rel Index Troponin I (0.000-0.034) ng/mL NT-Pro-B Natriuret Pep 272 pg/mL Total Protein (6.3-8.2) g/dL Albumin (3.5-5.0) g/dL Disposition Clinical Impression: Acute exacerbation of chronic obstructive airways disease Disposition: ADMITTED IP TO THIS HOSP Condition: Fair Referrals: Ovidio Rogel MD [Primary Care Provider] - 1-2 days
[2017-09-28 12:36] LABS: Calcium 9.9 mg/dL (8.4-10.2); Magnesium 2.2 mg/dL (1.6-2.3); Potassium 4.5 mmol/L (3.5-5.1); Total Bilirubin 0.6 mg/dL (0.2-1.3); Total Protein 6.9 g/dL (6.3-8.2)
[2017-09-28 12:45] LABS: Creatine Kinase 45 U/L (30-135)
[2017-09-28 12:58] LABS: Creatine Kinase MB 0.9 ng/mL (0.0-2.4); Troponin I <0.012 ng/mL (0.000-0.034)
--- NOTE | 2017-09-28 13:02 | XR ---
EXAMINATION TYPE: XR chest 2V DATE OF EXAM: 09/28/2017 COMPARISON: 03/16/2017 HISTORY: 67-year-old female difficulty breathing, shortness of breath TECHNIQUE: Frontal and lateral views FINDINGS: Heart normal size. Atherosclerotic arch calcifications. Diffuse interstitial prominence and hyperinfl ation. Some linear left basilar densities are unchanged suggesting scarring or atelectasis. No consol idation or pleural effusion. IMPRESSION: COPD and strandy atelectasis/scarring at the inferior lingula. No acute change identified.
[2017-09-28] MEDS ORDERED: ALBUTEROL NEBULIZED 2.5 MG/3 ML INHALATION STA (13:05)
[2017-09-28] MEDS ORDERED: IPRATROPIUM-ALBUTEROL 3 ML NEB INHALATION PRN (13:08)
[2017-09-28] MEDS ORDERED: methylPREDNISolone SOD SUCCI 125 MG/2 ML VIAL IV SCH (18:00)
[2017-09-28] MEDS ORDERED: MAGNESIUM HYDROXIDE 2,400 MG/10 ML CUP PO PRN (20:22)
[2017-09-28] MEDS ORDERED: LORazepam 0.5 MG TAB PO PRN (20:22)
[2017-09-28] MEDS ORDERED: LACTULOSE 20 GM/30 ML CUP PO PRN (20:22)
[2017-09-28] MEDS ORDERED: ACETAMINOPHEN TAB 325 MG TAB PO PRN (20:22)
[2017-09-28] MEDS ORDERED: CALCIUM CARBONATE 500 MG CHEWABLE PO PRN (20:22)
[2017-09-28] MEDS ORDERED: NALOXONE 0.4 MG/ML 1 ML VIAL IV PRN (20:22)
[2017-09-28] MEDS ORDERED: MELATONIN 3 MG TABLET PO PRN (20:22)
[2017-09-28] MEDS ORDERED: ONDANSETRON 4 MG/2 ML VIAL IVP PRN (20:22)
[2017-09-28] MEDS ORDERED: LACTATED RINGERS 1,000 ML IV SCH (20:30)
[2017-09-28] MEDS: RIVAROXABAN 20 MG TAB PO SCH (20:31)
[2017-09-28 20:57] LABS: Glucose,Whole Blood 245 mg/dL (75-99)
--- NOTE | 2017-09-28 21:03 | HP ---
HISTORY AND PHYSICAL DATE OF ADMISSION: 09/28/2017 PRESENTING COMPLAINT: Short of breath, wheezing, cough. HISTORY OF PRESENTING COMPLAINT: This is a very pleasant 67-year-old patient of Dr. Ovidio Rogel who was last here in March, when she had a pulmonary embolism. Patient is a long-standing smoker. Patient for 5 days has been having increasing amount of cough with very slight sputum. No fever. No chills. A lot of wheezing, tired, rundown, decreased appetite; not getting any better. She decided to come to the ER. The patient was found to have COPD exacerbation and was started on bronchodilators, with which she started to feel a bit better. Patient is still feeling tired and rundown. Patient is trying to cut back on her cigarettes. She is down to a few cigarettes a day. REVIEW OF SYSTEMS: CONSTITUTIONAL: Tired. HEENT: None. RESPIRATORY: As above. CARDIOVASCULAR: None. GASTROINTESTINAL: None. GENITOURINARY: None. MUSCULOSKELETAL: None. DERMATOLOGICAL: None. HEMATOLOGICAL: None. LYMPHATICS: None. PSYCHIATRY: None. NEUROLOGICAL: None. ADDITIONAL PAST MEDICAL HISTORY: 1. DVT in her left leg. 2. Pulmonary embolism. 3. Abdominal aortic aneurysm, being monitored. 4. Peripheral arterial disease. 5. Shingles in 1996. PAST SURGICAL HISTORY: 1. Back surgery. 2. Hysterectomy. 3. Tonsillectomy. 4. Ectopic with salpingo-oophorectomy. 5. Kyphoplasty. 6. Right shoulder fracture with surgery and screws in place. SOCIAL HISTORY: Patient has been smoking for over 50 years; was up to 2 packs a day and has now been down to a few cigarettes a day for several months. Alcohol none. Lives by herself. FAMILY HISTORY: Alzheimer's dementia, hypertension. HOME MEDICATIONS: 1. Ventolin HFA 2 puffs q.6 p.r.n. 2. Xarelto 20 mg with supper. ALLERGIES: NONE. PHYSICAL EXAMINATION: VITAL SIGNS ON PRESENTATION: Temperature 97.6, pulse 64, respiration 18, blood pressure 156/74, pulse ox 92% on room air. GENERAL APPEARANCE: Average build. Lying in bed, tired-appearing. EYES: Pupils equal. Conjunctivae normal. HEENT: External appearance of nose and ears normal. Oral cavity normal. NECK: JVD not raised. Mass not palpable. RESPIRATORY: Effort increased. LUNGS: Diminished breath sounds. Prolonged expiration. CARDIOVASCULAR: First and second sounds normal. No edema. ABDOMEN: Soft, nontender. Liver and spleen not palpable. LYMPHATIC: No lymph node palpable in neck or axillae. PSYCHIATRY: Alert and oriented x3. Mood and affect normal. NEUROLOGICAL: Pupils equal. Cranial nerves grossly intact. Power and sensation grossly intact. INVESTIGATIONS: White count 4.7, hemoglobin 14.4, potassium 4.5. Troponin negative. EKG shows sinus bradycardia. Chest x-ray shows some diffuse interstitial prominence, some hyperinflation. ASSESSMENT: 1. Acute chronic obstructive pulmonary disease with predominant emphysema, acute exacerbation due to probably acute bronchitis in a smoker. 2. Chronic nicotine dependence. Patient is a cigarette smoker. 3. Chronic pulmonary embolism. Patient is on Xarelto. 4. Peripheral artery disease. 5. Abdominal aortic aneurysm, size unknown. PLAN: Patient will be started on DuoNeb, IV Solu-Medrol, inhaled steroids. Continue on Xarelto. Discussed with the patient cessation of smoking. Patient is already on Xarelto; no need for Lovenox. Smoking cessation counseling was done with the patient, including discussing how it is making her COPD worse. She will be given a nicotine patch. More than 3 minutes was spent on this aspect of her care. MMODL / IJN: [id number] /
[2017-09-28] MEDS: IPRATROPIUM-ALBUTEROL 3 ML NEB INHALATION SCH (21:15)
[2017-09-28] MEDS: BUDESONIDE 1 MG/2 ML NEBU INHALATION SCH (21:15)
[2017-09-28] MEDS: NICOTINE 7MG/24HR PATCH TRANSDERM SCH (21:59)
[2017-09-28] MEDS: INSULIN ASPART 100 UNIT/ML 1 ML 10 ML VIAL SQ SCH (22:00)
[2017-09-28] MEDS: methylPREDNISolone SOD SUCCI 40 MG/ML 1 ML VIAL IV SCH (23:57)
[2017-09-29] MEDS: IPRATROPIUM-ALBUTEROL 3 ML NEB INHALATION SCH ×6 (00:10→19:30)
[2017-09-29 07:04] LABS: Glucose,Whole Blood 142 mg/dL (75-99)
[2017-09-29] MEDS: INSULIN ASPART 100 UNIT/ML 1 ML 10 ML VIAL SQ SCH ×4 (07:34→20:58)
[2017-09-29] MEDS: BUDESONIDE 1 MG/2 ML NEBU INHALATION SCH ×2 (08:51→19:30)
[2017-09-29] MEDS: NICOTINE 7MG/24HR PATCH TRANSDERM SCH (09:48)
[2017-09-29] MEDS: methylPREDNISolone SOD SUCCI 40 MG/ML 1 ML VIAL IV SCH ×2 (09:48→16:08)
[2017-09-29 11:47] LABS: Glucose,Whole Blood 121 mg/dL (75-99)
[2017-09-29 17:33] LABS: Glucose,Whole Blood 147 mg/dL (75-99)
[2017-09-29] MEDS: RIVAROXABAN 20 MG TAB PO SCH (17:48)
[2017-09-29 20:07] LABS: Glucose,Whole Blood 175 mg/dL (75-99)
--- NOTE | 2017-09-29 21:26 | PN ---
PROGRESS NOTE DATE OF SERVICE: 09/29/17 PRESENTING COMPLAINT: Short of breath. INTERVAL HISTORY: This patient has acute COPD exacerbation, feeling a bit better. Did tolerate a diet, up to the bathroom. Less wheezing. REVIEW OF SYSTEMS: Done for constitutional, cardiovascular, GI, pulmonary, relevant findings as above. CURRENT MEDICATIONS: Include DuoNeb and IV Solu-Medrol. PHYSICAL EXAMINATION: Temperature 97.8, pulse 58, respiration 16, blood pressure 103/66, pulse ox 93% on room air. General appearance: Sitting up in a chair, looking better. Eyes pupils are equal. Conjunctivae normal. HEENT external appearance of nose and ears normal. Oral cavity normal. Neck: JVD not raised. Mass not palpable. Respiratory effort increased. LUNGS: Diminished breath sounds. Cardiovascular: 1st and 2nd sounds normal. No edema. ABDOMEN: Soft, nontender. Liver and spleen not palpable. Psychiatry: Alert and oriented x3. Mood and affect normal. INVESTIGATIONS: Accu-Cheks are noted. ASSESSMENT: 1. Acute chronic obstructive pulmonary disease exacerbation with predominant emphysema with acute bronchitis. 2. Chronic nicotine dependence, patient is a cigarette smoker. 3. Chronic pulmonary embolism on Xarelto. 4. Peripheral artery disease. 5. Abdominal aortic aneurysm, size unknown. PLAN: Care was discussed with the patient. Continue with IV Solu-Medrol and breathing treatments. Encourage the patient to ambulate. MMODL / IJN: [id number] /
[2017-09-30] MEDS: methylPREDNISolone SOD SUCCI 40 MG/ML 1 ML VIAL IV SCH ×3 (00:17→08:42)
[2017-09-30] MEDS: IPRATROPIUM-ALBUTEROL 3 ML NEB INHALATION SCH ×4 (00:48→10:56)
[2017-09-30] MEDS: BUDESONIDE 1 MG/2 ML NEBU INHALATION SCH (07:11)
[2017-09-30 07:20] LABS: Glucose,Whole Blood 113 mg/dL (75-99)
[2017-09-30] MEDS: INSULIN ASPART 100 UNIT/ML 1 ML 10 ML VIAL SQ SCH ×2 (07:50→11:49)
[2017-09-30] MEDS: NICOTINE 7MG/24HR PATCH TRANSDERM SCH (08:21)
[2017-09-30 08:56] VITALS: TEMP 97.8
[2017-09-30 11:26] LABS: Glucose,Whole Blood 91 mg/dL (75-99)
[2017-09-30] MEDS ORDERED: predniSONE 20 MG TAB PO ONE (12:00)
[2017-09-30 14:17] VITALS: BP 106/56; PULSE 61; RESP 16
--- NOTE | 2017-09-30 20:09 | DS ---
DISCHARGE SUMMARY DATE OF ADMISSION: 09/28/17. DATE OF DISCHARGE: 09/30/17. FINAL DIAGNOSIS: 1. Acute chronic obstructive pulmonary disease exacerbation with predominant emphysema and acute bronchitis. 2. Chronic nicotine dependence. Patient is a cigarette smoker. 3. Chronic pulmonary embolism, on Xarelto. 4. Peripheral artery disease. 5. Abdominal aortic aneurysm, size unknown. HOSPITAL COURSE: This patient is a smoker who presented with COPD exacerbation and bronchitis. Doing better at the time of discharge. The patient advised against smoking. EXAM: Lungs: Decreased breath sounds. Cardiovascular: First and second sounds normal. DC MEDICATIONS: 1. Ventolin HFA 2 puffs q.6h p.r.n. 2. Xarelto 20 mg with supper. 3. DuoNeb t.i.d. 4. Nicotine patch size 7. 5. Prednisone taper. FOLLOWUP: Follow with Dr. Rogel in 3 days. MMJUAN MIGUELL / JEWELN: [id number] /
== END 2017-09-30 14:50 | disposition home or self-care (01) ==
LOC: EC 11:12 → 5MS5E 13:16
PROVIDERS: ADMIT Hospitalist; ATTEND Hospitalist
DX: J44.1 Chronic obstructive pulmonary disease with (acute) exacerbation (principal); J44.0 Chronic obstructive pulmonary disease with (acute) lower respiratory infection; J20.9 Acute bronchitis, unspecified; F17.210 Nicotine dependence, cigarettes, uncomplicated; I27.82 Chronic pulmonary embolism; I71.4 Abdominal aortic aneurysm, without rupture; I73.9 Peripheral vascular disease, unspecified; Z86.718 Personal history of other venous thrombosis and embolism; Z79.01 Long term (current) use of anticoagulants; Z87.01 Personal history of pneumonia (recurrent); Z87.09 Personal history of other diseases of the respiratory system; Z85.42 Personal history of malignant neoplasm of other parts of uterus; Z82.0 Family history of epilepsy and other diseases of the nervous system; Z82.49 Family history of ischemic heart disease and other diseases of the circulatory system; Z80.1 Family history of malignant neoplasm of trachea, bronchus and lung
CPT/HCPCS: 99285 ×2; 96374 ×2; 96376 ×3; 36415; 94640 ×5; 94760 ×2; 93005; 83880; 80053; 82550; 82553; 83735; 84484; 85025; 85610; 85730; 71046; G0378 ×3; S4990 ×3; J2920 ×3; J2930; J7512

== ENCOUNTER → 2018-05-16 | Outpatient (CLI) | payer MEDICARE, OTHER ==
[2018-05-16 12:51] LABS: Prothrombin Time 9.9 sec (9.0-12.0)
[2018-05-16 20:30] LABS: Cardiolipin Ab IgG Interp NEGATIVE (NEGATIVE); Cardiolipin Ab IgM Interp NEGATIVE (NEGATIVE); Cardiolipin IgA Antibody 0.8 U/mL; Cardiolipin IgM Antibody 5.5 U/mL
[2018-05-18 11:28] LABS: Protein C (Activity) 78 % (71-138)
[2018-05-18 14:05] LABS: APTT 40 Sec(s) (<43); Dilute Russell Viper Venom 43 Sec(s) (<44)
[2018-05-18 14:10] LABS: Anti-Thrombin III Antigen 122 % (80 - 120); Free Protein S Antigen 117 % (50 - 147)
== END ==
LOC: LABWHC1 11:22
PROVIDERS: ATTEND Internal Medicine
DX: D68.69 Other thrombophilia (principal)
CPT/HCPCS: 36415; 82784; 82785; 83090; 85301; 85303; 85306; 85610; 85613; 85730; 86147

== ENCOUNTER → 2018-05-18 | Outpatient (CLI) | payer MEDICARE, OTHER | END | disposition home or self-care (01) | LOC: LABWHC1 12:52 | PROVIDERS: ATTEND Internal Medicine | DX: D68.69 Other thrombophilia (principal) | CPT/HCPCS: 36415; 81240; 81241; 81291 ==

== ENCOUNTER → 2018-07-12 | Outpatient (CLI) | payer MEDICARE, OTHER | LOC: LABPAT 15:05 | PROVIDERS: ATTEND Orthopaedic Surgery | DX: Z01.812 Encounter for preprocedural laboratory examination (principal) | CPT/HCPCS: 87070 ==

== ENCOUNTER → 2018-07-18 | Outpatient (CLI) | payer MEDICARE, OTHER ==
--- NOTE | 2018-07-18 13:22 | US ---
EXAMINATION TYPE: US carotid duplex BILAT DATE OF EXAM: 07/18/2018 COMPARISON: NONE CLINICAL HISTORY: I70.90 Atherosclerosis. EXAM MEASUREMENTS: RIGHT: Peak Systolic Velocity (PSV) cm/sec ----- Right CCA: 72.1 ----- Right ICA: 87.5 ----- Right ECA: 61.6 ICA/CCA ratio: 1.2 RIGHT: End Diastole cm/sec ----- Right CCA: 16.9 ----- Right ICA: 87.5 ----- Right ECA: 9.8 LEFT: Peak Systolic Velocity (PSV) cm/sec ----- Left CCA: 64.4 ----- Left ICA: 73.2 ----- Left ECA: 46.8 ICA/CCA ratio: 1.1 LEFT: End Diastole cm/sec ----- Left CCA: 13.8 ----- Left ICA: 27.0 ----- Left ECA: 10.1 VERTEBRALS (direction of flow): Right Vertebral: Antegrade Left Vertebral: Antegrade Rhythm: Normal Moderate amount of plaque visualized bilaterally. No elevated velocities, no significant stenosis. IMPRESSION: Moderate amount of plaque visualized bilaterally. No elevated velocities, no significant stenosis. Criteria for Assigning % of Stenosis / Diameter reduction (Estimation based on the indirect measurements of the internal carotid artery velocities (ICA PSV). 1. Normal (no stenosis)=ICA PSV < 125 cm/s: ratio < 2.0: ICA EDV<40 cm/s. 2. Less than 50% stenosis=ICA PSV < 125 cm/s: ratio < 2.0: ICA EDV<40 cm/s. 3. 50 to 69% stenosis=ICA PSV of 125 to 230 cm/s: ration 2.0 ? 4.0: ICA EDV 40-100 cm/s. 4. Greater than 70% stenosis to near occlusion= ICA PSV > 230 cm/s: ratio > 4.0: ICA EDV > 100 cm/s. 5. Near occlusion= ICA PSV velocities may be low or undetectable: variable ratio and ICA EDV. 6. Total occlusion=unable to detect flow.
== END ==
LOC: RADUSWWP 12:06
PROVIDERS: ATTEND Internal Medicine
DX: I70.90 Unspecified atherosclerosis (principal)
CPT/HCPCS: 93880

== ENCOUNTER → 2018-07-18 | Outpatient (CLI) | payer MEDICARE, OTHER ==
--- NOTE | 2018-07-18 13:17 | US ---
EXAMINATION TYPE: US duplex aorta DATE OF EXAM: 07/18/2018 COMPARISON: US 02/01/2017 CLINICAL HISTORY: I71.4 Abdominal aortic aneurysm, without rupture. EXAM MEASUREMENTS: Abdominal Aorta: Proximal: 2.3 x 2.7 x 2.7 cm Mid: 3.1 x 3.0 x 3.4 cm Distal: 2.1 x 2.4 x 2.4 cm Bifurcation: RT: 0.8 x 0.8 LT: 0.9 x 1.0 cm Moderate amount of plaque visualized. AAA visualized at the mid aorta measuring 3.4 cm IMPRESSION: 1. Moderate plaque with mid abdominal aortic aneurysm noted.
== END | disposition home or self-care (01) ==
LOC: RADUSWWP 12:18
PROVIDERS: ATTEND Internal Medicine
DX: I71.4 Abdominal aortic aneurysm, without rupture (principal)
CPT/HCPCS: 93979

== ENCOUNTER → 2018-07-28 | Outpatient (CLI) | payer MEDICARE, OTHER ==
[2018-07-28 11:47] LABS: Basophils % (A) 1 %; Eosinophils # (A) 0.1 k/uL (0-0.7); Eosinophils % (A) 1 %; HCT 42.4 % (34.0-46.0); HGB 13.7 gm/dL (11.4-16.0); Lymphocytes # (A) 1.2 k/uL (1.0-4.8); Lymphocytes % (A) 28 %; MCHC 32.3 g/dL (31.0-37.0); Mean Platelet Volume 6.7; Monocytes # (A) 0.3 k/uL (0-1.0); Monocytes % (A) 6 %; Neutrophils # (A) 2.5 k/uL (1.3-7.7); Neutrophils % (A) 61 %; Platelet Count 242 k/uL (150-450); RBC 4.71 m/uL (3.80-5.40); RDW 13.6 % (11.5-15.5); WBC 4.2 k/uL (3.8-10.6)
[2018-07-28 11:57] LABS: Prothrombin Time 10.4 sec (9.0-12.0)
[2018-07-28 12:00] LABS: Potassium 4.9 mmol/L (3.5-5.1)
--- NOTE | 2018-07-29 11:53 | HP ---
HISTORY AND PHYSICAL REASON FOR ADMISSION: Surgery is scheduled for 07/30/2018 Opal Atkinson is a 68-year-old patient seen with symptomatic right hip osteoarthritis. Treatment options were discussed with her. She elected to proceed with direct anterior right total hip arthroplasty. Consent was obtained. Medical clearance was provided by Dr. Ovidio Rogel. PAST MEDICAL HISTORY: Pulmonary embolism, aortic aneurysm. PAST SURGICAL HISTORY: Hysterectomy, right shoulder arthroscopy, tonsillectomy, kyphoplasty. DAILY MEDICATIONS: Xarelto. ALLERGIES: None. SOCIAL HISTORY: She smokes cigarettes. PHYSICAL EXAMINATION: Evaluation of the right hip limited range of motion with severe pain. Positive hip impingement sign. Straight leg raise negative. Distal neurovascular exam intact. RADIOGRAPHS: Radiographs of the right hip reveal severe osteoarthritic changes. IMPRESSION: Right hip osteoarthritis. PLAN: Direct anterior right total hip arthroplasty. Surgery 07/30/2018. MMODL / IJN: [id number] /
== END | disposition home or self-care (01) ==
LOC: LABPAT 10:48
PROVIDERS: ATTEND Orthopaedic Surgery
DX: Z01.812 Encounter for preprocedural laboratory examination (principal); M16.11 Unilateral primary osteoarthritis, right hip; Z79.01 Long term (current) use of anticoagulants
CPT/HCPCS: 36415; 80051; 85025; 85610

== ENCOUNTER 2018-07-30 05:47 | Inpatient (IN) | payer MEDICARE, OTHER ==
[2018-07-26 11:51] VITALS: BMI 25.8
[~2018-07-30 05:47] MED LIST: ACETAMINOPHEN TAB 500 MG TAB PO ONE; DEXAMETHASONE SOD PHOSPHATE 10 MG/ML 1 ML VIAL IV ONE; HYDROmorphone 0.5 MG/0.5 ML SYRINGE IVP PRN; MELOXICAM 7.5 MG TAB PO ONE; MIDAZOLAM (PF) 2 MG/2 ML VIAL IV PRN; ONDANSETRON 4 MG/2 ML VIAL IVP ONE; TRANEXAMIC ACID 1,000 MG in SODIUM CHLORIDE 0.9% 50 ML IVPB ONE; ceFAZolin IN SWFI 2 GM/20 ML SYRINGE IVP ONE
[2018-07-30] MEDS ORDERED: LIDOCAINE 1% 20 ML VIAL (10MG/ML) FOR IV START INTRADERMA ONE (06:19)
[2018-07-30] MEDS ORDERED: LACTATED RINGERS 1,000 ML IV ONE (06:32)
[2018-07-30] MEDS ORDERED: MIDAZOLAM 2 MG/2 ML VIAL ONE (07:29)
[2018-07-30] MEDS ORDERED: HYDROmorphone (PF) 1 MG/ML ONE (07:29)
[2018-07-30] MEDS ORDERED: PROPOFOL 10 MG/ML 20 ML VIAL IV ONE (07:29)
[2018-07-30] MEDS ORDERED: fentaNYL (PF) 50 MCG/ML 2 ML AMP ONE (07:29)
[2018-07-30] MEDS ORDERED: SODIUM CHLORIDE 0.9% 100 ML BAG ONE (07:29)
[2018-07-30] MEDS ORDERED: SUCCINYLCHOLINE CHLORIDE 100 MG/5 ML SYR IV ONE (07:29)
[2018-07-30] MEDS ORDERED: ROCURONIUM BROMIDE 10 MG/ML 10 ML VIAL IV ONE (07:29)
[2018-07-30] MEDS ORDERED: KETOROLAC 30 MG/ML 1 ML VIAL ONE (07:29)
[2018-07-30] MEDS ORDERED: TRANEXAMIC ACID 1,000 MG/10 ML VIAL ONE (07:29)
[2018-07-30] MEDS ORDERED: ePHEDrine SULFATE/0.9% NACL/PF 50 MG/5 ML SYRINGE IV ONE (07:29)
[2018-07-30] MEDS ORDERED: LIDOCAINE 1% INJ 10MG/ML (20 ML MDV) ONE (07:29)
[2018-07-30] MEDS ORDERED: ROPIVACAINE 246.25 MG, EPINEPHrine 0.5 MG, KETOROLAC 30 MG, cloNIDine HCL/PF 80 MCG, WA... MISCELLANE ONE ×5 (07:36)
[2018-07-30] MEDS ORDERED: ceFAZolin 3,000 MG in SODIUM CHLORIDE 0.9% IRRIGATIO 3,000 ML IRRIGATION ONE (07:56)
--- NOTE | 2018-07-30 09:05 | FL ---
EXAMINATION TYPE: FL guidance operating room, XR Hip Limited RT DATE OF EXAM: 07/30/2018 CLINICAL HISTORY: Right hip pain and osteoarthritis. TECHNIQUE: Fluoroscopy. Limited intraoperative views right hip COMPARISON: None. FINDINGS: Fluoroscopic guidance was provided during hip replacement procedure performed by Dr. Daria jimenez. A total of 21 seconds of fluoroscopic time was utilized during the procedure and single spot f luoroscopic image is acquired. Single image acquired shows metallic hardware from total hip arthroplasty satisfactory in position on single frontal projection obtained intraoperatively. IMPRESSION: As Above.
--- NOTE | 2018-07-30 09:06 | P.OP ---
Date of Procedure: 07/30/18 Preoperative Diagnosis: Right hip osteoarthritis Postoperative Diagnosis: Right hip osteoarthritis Procedure(s) Performed: Direct anterior right total hip arthroplasty Implants: 1. Depuy Corail KA size 15 press-fit standard collar femoral stem 2. Depuy pinnacle 54 mm press-fit acetabular shell 3. Depuy pinnacle polyethylene acetabular liner neutral 36 mm ID 54 mm OD 4. Biolox delta ceramic femoral head +1.5 36 mm Anesthesia: YVETTEA, local Surgeon: Thony Bassett Volunteer Services Specialist #1: Devaughn Raza Estimated Blood Loss (ml): 200 Pathology: other (Femoral head) Condition: stable Disposition: PACU Indications for Procedure: 68-year-old patient seen with symptomatic right hip osteoarthritis. After having treatment options discussed, she elected to proceed with total hip arthroplasty. Operative Findings: See description of procedure Description of Procedure: The patient was taken to the operative suite. Patient underwent a general anesthetic by the department of anesthesia. Patient was then transferred to the [place] table. Patient was given preoperative IV antibiotics and TXA. Both lower extremities were placed in standard leg spars. The hip was then prepped and draped in the normal sterile orthopedic fashion. A standard anterior incision was made beginning 3 cm lateral and 1 cm distal to the ASIS extending 10 cm. Dissection was then carried down through the subcutaneous soft tissues down to the fascia overlying the tensor fascia paco. An incision was now made through the fascia. Careful dissection was taken down exposing the tensor fascia paco muscle. A Cobra retractor was now placed along the medial femoral neck and a second one along the lateral femoral neck. The venous circumflex vessels were now identified, cauterized and clipped. We identified the anterior hip capsule. An incision was made through the hip capsule along the lateral border. I performed a partial anterior capsulectomy. Retractors were now placed around the femoral neck itself. A femoral neck cut was now made with a sagittal saw. It was completed with an osteotome at the lateral neck area. The femoral head was now removed without difficulty. The extremity was now rotated to 45 of external rotation. It was locked in position. Residual labrum was now debrided out. Serial reaming was performed of the acetabulum while Roly BRADLEY assisted holding an anterior retractor for exposure. Once we reached the appropriate size and a trial was position and fit nicely. The appropriate size was now chosen opened and made available. It was introduced into the acetabulum without difficulty. The C-arm/fluoroscopy was now brought into the operative field. We made sure we had a true AP pelvic view. We now under direct C-arm/fluoroscopy introduced into the acetabular component with appropriate version and inclination. I held the cup in appropriate position well Roly BRADLEY used a mallet to seat the acetabular component. I noted the component now to be well seated and stable. Acetabular cup introduce her was removed. The C-arm was pulled back. An appropriate liner was introduced and clicked into position. It was felt to be stable. At this point retractors were removed. The extremity was now placed into 120 external rotation with no traction. The leg was now dropped to the ground and adducted. Appropriate retractors were now positioned along the proximal femur. We also placed our femoral look into position. Additional capsular releasing was performed to gain access to the proximal femur. We now used a box osteotome. A canal finder was now utilized. Serial broaching was now performed with the assistance of Roly BRADLEY tapping the broaches down with a mallet while held the broach in appropriate rotation and position. This was done until we reached the appropriate size with good overall rotational stability. Appropriate calcar planing was performed. A trial head/neck was placed into position. The hip was now reduced. The C-arm/fluoroscopy was brought back into the operative field. A spot film was obtained of the nonoperative hip. A spot film was obtained of the trial components. Overlays were performed, we noted good overall alignment and positioning for determining leg length. The C- arm/fluoroscopy was pulled back. Retractors were repositioned and the hip was dislocated. The leg was again taken down to the ground and adducted. Appropriate retractors were repositioned as well as the femoral hook. All trial components were removed. The femoral implant was opened along with the femoral head. The femoral implant was introduced on the appropriate handle into our pre-broached area. I held the component position well Roly BRADLEY used a mallet to seat the femoral component. The femoral component was now noted to be well seated and stable.. The femoral head was introduced with good positioning and fixation noted. Retractors were now removed. The hip was now reduced. There appeared be good positioning of the hip confirmed on intraoperative fluoroscopy. Spot films were obtained to document this. A second gram of TXA was given. The deep and superficial soft tissues were infiltrated with local analgesic. Bipolar cautery had been utilized intermittently through the procedure for hemostasis. The wound was irrigated copiously with pulse lavage mechanical irrigation. The fascia was repaired with Vicryl suture. The subcutaneous soft tissues were repaired in layers with Vicryl suture. The skin was approximated with pernio/Dermabond. Sterile dressings were applied. Patient was then awakened, transferred to a bed and taken to recovery in stable condition. Roly BRADLEY assisted with the complex procedure.
[2018-07-30] MEDS ORDERED: ONDANSETRON 4 MG/2 ML VIAL IVP PRN (09:07)
[2018-07-30] MEDS ORDERED: traMADol 50 MG TAB PO PRN (09:07)
[2018-07-30] MEDS ORDERED: NALOXONE 0.4 MG/ML 1 ML VIAL IV PRN (09:07)
[2018-07-30] MEDS ORDERED: HYDROcodone/APAP 7.5-325MG 1 EACH TAB PO PRN (09:07)
[2018-07-30] MEDS ORDERED: HYDROmorphone 0.5 MG/0.5 ML SYRINGE IVP PRN (09:07)
[2018-07-30] MEDS ORDERED: HYDROmorphone 1 MG/ML 1 ML SYRINGE IVP PRN (09:07)
[2018-07-30] MEDS: LACTATED RINGERS 1,000 ML IV SCH ×3 (10:40→20:37)
[2018-07-30] MEDS: HYDROmorphone 0.5 MG/0.5 ML SYRINGE IVP PRN (13:31)
[2018-07-30] MEDS: ceFAZolin IN SWFI 2 GM/20 ML SYRINGE IVP SCH ×2 (15:36→22:12)
[2018-07-30] MEDS ORDERED: ALBUTEROL NEBULIZED 2.5 MG/3 ML INHALATION PRN (16:39)
[2018-07-30] MEDS ORDERED: SENNOSIDES-DOCUSATE SODIUM 1 EACH TAB PO SCH (21:00)
[2018-07-30] MEDS: HYDROcodone/APAP 7.5-325MG 1 EACH TAB PO PRN (22:12)
[2018-07-31] MEDS: NICOTINE 7MG/24HR PATCH TRANSDERM SCH ×2 (03:29→09:41)
[2018-07-31] MEDS: HYDROcodone/APAP 7.5-325MG 1 EACH TAB PO PRN ×2 (04:28→13:52)
[2018-07-31] MEDS: LACTATED RINGERS 1,000 ML IV SCH (07:17)
[2018-07-31 07:57] LABS: Basophils % (A) 0 %; Eosinophils % (A) 1 %; HCT 31.1 % (34.0-46.0); Lymphocytes # (A) 1.3 k/uL (1.0-4.8); Lymphocytes % (A) 26 %; MCH 29.9 pg (25.0-35.0); MCHC 32.9 g/dL (31.0-37.0); MCV 90.8 fL (80.0-100.0); Mean Platelet Volume 6.9; Monocytes # (A) 0.3 k/uL (0-1.0); Monocytes % (A) 6 %; Neutrophils # (A) 3.2 k/uL (1.3-7.7); Neutrophils % (A) 66 %; Platelet Count 166 k/uL (150-450); RBC 3.42 m/uL (3.80-5.40); RDW 13.7 % (11.5-15.5); WBC 4.9 k/uL (3.8-10.6)
[2018-07-31] MEDS ORDERED: FORMOTEROL FUMARATE 20 MCG/2 ML NEBU INHALATION SCH (08:00)
--- NOTE | 2018-07-31 08:01 | CONS ---
CONSULTATION DATE OF CONSULTATION: 07/30/2018 REASON FOR CONSULTATION: Medical management requested by Dr. Bassett. CONSULTATION: This is a very pleasant 68-year-old patient who follows Dr. Ovidio Rogel. Chronic stable medical conditions include COPD, history of DVT and PE, chronically on Xarelto for the last 2 years, abdominal aortic aneurysm which is being followed and peripheral artery disease. Patient has undergone right total hip arthroplasty. Pain is controlled. No nausea, vomiting. No chest pain. Patient's son and hmjqeqlu-cy-gab are present. Otherwise, patient is rather comfortable, tolerating her supper. REVIEW OF SYSTEMS: CONSTITUTIONAL: None. HEENT: None. RESPIRATORY: Occasional cough. CARDIOVASCULAR: None. GASTROINTESTINAL: None. GENITOURINARY: Patient does have urinary incontinence. MUSCULOSKELETAL: Arthritic pain in the joints DERMATOLOGICAL: None. HEMATOLOGICAL: None. LYMPHATICS: None. PSYCHIATRY: None. NEUROLOGICAL: None. PAST MEDICAL HISTORY: COPD, DVT and PE 2 years ago, abdominal aortic aneurysm being followed, peripheral artery disease. PAST SURGICAL HISTORY: Back surgery, hysterectomy, tonsillectomy, ectopic , salpingo-oophorectomy, right shoulder fracture with surgery and screws in place. SOCIAL HISTORY: The patient lives in independent living. Smoked about 2 packs a day for 51 years, now down to about 5 cigarettes a day. Alcohol none. FAMILY HISTORY: Dementia, hypertension. HOME MEDICATIONS: Anoro Ellipta 62.5/25 one puff daily, Xarelto 20 mg with supper, Ventolin HFA 2 puffs q.4 p.r.n. ALLERGIES: None. On examination, temperature 97.5, pulse 57, respirations 16, blood pressure 104/67, pulse ox 95% on room air. GENERAL APPEARANCE: Average build, sitting up, comfortable. EYES: Pupils equal, conjunctivae are normal. HEENT: External appearance of nose and ears normal, oral cavity normal. NECK: JVD not raised. Mass not palpable. RESPIRATORY: Effort normal. LUNGS: Decreased breath sounds. Mild expiratory wheezing. CARDIOVASCULAR: First and second sounds normal. No edema. ABDOMEN: Soft, nontender. Liver and spleen not palpable. LYMPHATIC: No lymph node palpable. PSYCHIATRY: Alert and oriented x3. Mood and affect normal. NEUROLOGICAL: Pupils equal. Cranial nerves grossly intact. Power and sensation grossly intact. MUSCULOSKELETAL: Dressing over the right hip. INVESTIGATIONS: Lab work from 07/28/2018 shows a white count of 4.2, hemoglobin 13.7, potassium 4.9. ASSESSMENT: 1. Right total hip arthroplasty. 2. Primary osteoarthritis. 3. Chronic obstructive pulmonary disease in a current smoker. 4. Chronic deep venous thrombosis and pulmonary embolism, for which patient is chronically on Xarelto, currently held for surgery. 5. Abdominal aortic aneurysm being followed as an outpatient. 6. Chronic urinary stress incontinence. 7. Peripheral artery disease with prior intervention. 8. Chronic nicotine dependence, patient is a cigarette smoker. PLAN: Patient's home medications are resumed. Patient is on Lovenox for DVT prophylaxis per Dr. Bassett. Patient should be able to resume the Xarelto as soon as okay with Orthopedics. Patient is going to get his bronchodilators. Will also give the patient a nicotine patch. Care was discussed with the patient, questions were answered. Thank you, Dr. Bassett. Copy to Dr. Rogel. SCOTT / JEWELN: [id number] /
[2018-07-31 08:03] LABS: HGB 10.2 gm/dL (11.4-16.0)
[2018-07-31] MEDS ORDERED: ENOXAPARIN 40 MG/0.4 ML SYRINGE SQ SCH (09:00)
[2018-07-31] MEDS: HYDROmorphone 0.5 MG/0.5 ML SYRINGE IVP PRN (09:07)
[2018-07-31] MEDS: IPRATROPIUM 0.5 MG/2.5 ML NEBU INHALATION SCH ×2 (09:09→13:39)
[2018-07-31 09:43] VITALS: RESP 16
--- NOTE | 2018-07-31 13:17 | P.PN ---
Subjective Progress Note Date: 07/31/18 Principal diagnosis: Status post right total hip arthroplasty Patient is evaluated today at bedside, she is resting comfortable. She is working with therapy. Patient denies any chest pain or shortness of breath. Objective - Vital Signs Vital signs: Vital Signs Temp 98.2 F 07/31/18 09:09 Pulse 68 07/31/18 09:21 Resp 16 07/31/18 09:09 BP 101/59 07/31/18 09:09 Pulse Ox 97 07/31/18 09:09 Intake & Output 07/30/18 07/31/18 07/31/18 18:59 06:59 18:59 Intake Total 1201 900 296 Output Total 200 Balance 1001 900 296 Intake: IV 851 Intake, IV Titration 350 900 Amount Lactated Ringers 1,000 ml 350 900 @ 100 mls/hr IV .Q10H FAB Rx#:[id number] Oral 296 Output: Estimated Blood Loss 200 Other: Voiding Method Toilet Toilet # Voids 2 - Exam Right lower extremity: Incision is clean, dry, and intact. The exofin fusion tape is in good condition. There is minimal soft tissue swelling and ecchymosis surrounding the medial and lateral aspects of the incision. Calf is soft, no tenderness with palpation. Plantar flexion, dorsiflexion, EHL, FHL are intact. Sensory exam to light touch throughout the extremity is intact, dorsal pedis pulses 2+. - Labs CBC & Chem 7: 07/31/18 07:12 Labs: Abnormal Lab Results - Last 24 Hours (Table) 07/31/18 Range/Units 07:12 RBC 3.42 L (3.80-5.40) m/uL Hgb 10.2 L D (11.4-16.0) gm/dL Hct 31.1 L (34.0-46.0) % Assessment and Plan Plan: Assessment: Post op day #1 status post direct anterior right total hip arthroplasty Plan: Pain control, discharge home on oral medication GI and DVT prophylaxis, resume Xarelto after discharge Wound care instructions discussed Physical therapy and nursing after discharge Medical recommendations Discharge planning: Patient will be discharged home today Time with Patient: Less than 30
--- NOTE | 2018-07-31 13:20 | P.DS ---
Providers Date of admission: 07/30/18 05:47 Expected date of discharge: 07/31/18 Attending physician: Thony Bassett Consults: 07/30/18 09:07 Consult Physician Routine Consulting Provider: Junior Shahid Consult Reason/Comments: Medical management Do you want consulting provider notified?: Yes Primary care physician: Ovidio Newport Hospital Course: Date of admission: 07/30/2018 Date of discharge: 07/31/2018 Admission diagnosis: Status post direct anterior total hip arthroplasty Discharge diagnosis: Same Attending physician: Dr. Bassett Surgical procedures: Direct anterior right total hip arthroplasty Brief history: Patient is a 68-year-old female with a history of progressive primary right hip osteoarthritis. At this point patient has failed conservative treatment measures and has opted to proceed with a elective direct anterior right total hip arthroplasty. Hospital course: Details of patient's surgery can be found in operative report. Patient tolerated the procedure well and was subsequently transported to orthopedic floor. Patient's orthopeidc and medical care was provided daily. Patient had daily laboratory tests performed for evaluation of overall blood counts. Patient had daily physical therapy to include strengthening range of motion as well as education with walker ambulation. Patient was treated with Lovenox for their postoperative DVT prophylaxis during their inpatient stay. Patient was noted to have a relatively uneventful postoperative course. Patient reported satisfactory pain control with oral pain medications by postoperative day 0. Patient showed satisfactory progress with physical therapy. Patient moved steadily through the program and had no difficulty meeting the goals by postoperative day 1. Given patient's otherwise satisfactory course and having met physical therapy goals, plan is to discharge patient home on postoperative day 1. Discharge condition/disposition: Patient will be discharged home in stable condition. Discharge medications: Instructions are given on resumption of patient's normal daily medications per primary care recommendation, in addition patient will be prescribed Fishers 7.5 mg/325 mg, Colace 100 mg. Discharge instructions: 1. Wound care and infection precautions, keep incision dry and covered while showering, no lotions, creams, moisturizers. No soaking, tubs, pools, hottubs. Do not scrub over the incision. 2. Weight-bear as tolerated with walker / cane until follow-up. 3. Ice and elevate when necessary. Do not exceed 20 minutes per hour with ice pack. 4. Utilize compression sleeve until seen at first follow up appointment. 5. Visiting nursing care. 6. Home physical therapy. 7. Pain meds and anticoagulants per prescription. 8. Pain medication has potential to cause constipation. Increase oral fluid and fiber intake. Contact primary care provider if you have not had a bowel movement within 48 hours after discharge 9. No anti-inflammatory medication until discussed at first post operative visit, this including Motrin, Aleve, Mobic, Diclofenac. 10. Follow up in office at 2 weeks postop with Roly Raza PA-C 11. Follow up with your primary care doctor 7-10 days after discharge. 12. Contact [facility] with any questions, . Procedures: Right total hip arthroplasty Patient Condition at Discharge: Good Plan - Discharge Summary Discharge Rx Participant: Yes New Discharge Prescriptions: New Docusate [Colace] 100 mg PO DAILY #30 capsule HYDROcodone/APAP 7.5-325MG [Fishers 7.5] 1 - 2 each PO Q6HR PRN #40 tab PRN Reason: Pain No Action Rivaroxaban [Xarelto] 20 mg PO W/SUPPER Albuterol Inhaler [Ventolin Hfa Inhaler] 2 puff INHALATION RT-Q4H PRN PRN Reason: Shortness Of Breath Umeclidinium Brm/Vilanterol Tr [Anoro Ellipta 62.5-25 Mcg INH] 1 puff INHALATION DAILY Discharge Medication List Albuterol Inhaler [Ventolin Hfa Inhaler] 2 puff INHALATION RT-Q4H PRN 09/28/17 [ History] Rivaroxaban [Xarelto] 20 mg PO W/SUPPER 09/28/17 [History] Umeclidinium Brm/Vilanterol Tr [Anoro Ellipta 62.5-25 Mcg INH] 1 puff INHALATION DAILY 07/30/18 [History] Docusate [Colace] 100 mg PO DAILY #30 capsule 07/31/18 [Rx] HYDROcodone/APAP 7.5-325MG [Fishers 7.5] 1 - 2 each PO Q6HR PRN #40 tab 07/31/18 [ Rx] Follow up Appointment(s)/Referral(s): [facility], [NON-STAFF] - Devaughn Raza PAC [PHYSICIAN CUE WORKER] - 08/15/18 1:50 pm Ovidio Rogel MD [Primary Care Provider] - 08/07/18 10:00 am (Office has requested for patient to please bring discharge papers to follow up appointment) Activity/Diet/Wound Care/Special Instructions: Orthopedic Discharge Instructions: 1. Wound care and infection precautions, keep incision dry and covered while showering, no lotions, creams, moisturizers. No soaking, pools, hot tubs. Do not scrub over incision. 2. Weight-bear as tolerated with walker / cane until follow-up. 3. Ice and elevate when necessary. Do not exceed 20 minutes per hour with ice pack. 4. Utilize compression sleeve until seen at first follow up appointment. 5. Pain meds and anticoagulants per prescription. 6. Pain medication has potential to cause constipation. Increase oral fluid and fiber intake. Contact primary care provider if you have not had a bowel movement within 48 hours after discharge. 7. No anti-inflammatory medication until discussed at first post operative visit, this including Motrin, Aleve, Mobic, Diclofenac. 8. Follow up in office at 2 weeks postop with Roly Raza PA-C 9. Follow up with your primary care doctor 7-10 days after discharge. 10. Contact [facility] with any questions, . Discharge Disposition: HOME WITH HOME HEALTH SERVICES
[2018-07-31 16:16] VITALS: BP 100/57; PULSE 85; TEMP 99.8
--- NOTE | 2018-08-01 00:55 | PN ---
PROGRESS NOTE DATE OF SERVICE: 07/31/2018. PRESENTING COMPLAINT: Right hip surgery. INTERVAL HISTORY: Patient is status post right hip surgery. Some pain is present. Did work with therapy. No chest pain or short of breath. No dizziness. No lightheadedness. Did tolerate a diet. Overall feeling better. REVIEW OF SYSTEMS: Done for constitutional, cardiovascular, GI, pulmonary; relevant findings as above. CURRENT MEDICATIONS: Reviewed. PHYSICAL EXAMINATION: Temperature 98.2, pulse 94, respiration 16, blood pressure 109/59, pulse ox 97% on room air. GENERAL APPEARANCE: Sitting up, comfortable. EYES: Pupils are equal. Conjunctivae normal. NECK: JVD not raised. Mass not palpable. Respiratory effort normal. LUNGS: Decreased breath sounds. CARDIOVASCULAR: 1st and 2nd sounds normal. No edema. ABDOMEN: Soft, nontender. Liver and spleen not palpable. PSYCHIATRY: Alert and oriented x3. Mood and affect normal. INVESTIGATIONS: White count 4.9, hemoglobin 10.2. ASSESSMENT: 1. Right total hip arthroplasty. 2. Acute postoperative blood loss anemia expected from surgery. 3. Primary osteoarthritis. 4. Chronic obstructive pulmonary disease in a current smoker. 5. Chronic deep venous thrombosis and pulmonary embolism for which patient is chronically on Xarelto. 6. Abdominal aortic aneurysm, being followed as an outpatient. 7. Chronic urinary stress incontinence. 8. Peripheral artery disease with prior intervention. 9. Chronic nicotine dependence, patient is a cigarette smoker. PLAN: Patient reminded to stay away from cigarettes. Other medication and treatment plan is to continue. The patient to continue with Xarelto. Follow up with the family doctor. Thank you, Dr. Bassett. SCOTT / SHERYL: [id number] /
== END 2018-07-31 16:13 | disposition home health service (06) | DRG 470 ==
LOC: 2ORMAIN 05:47 → 4SSUR 09:24
PROVIDERS: ADMIT Orthopaedic Surgery; ATTEND Orthopaedic Surgery
PROC: 0SR904A Replacement of Right Hip Joint with Ceramic on Polyethylene Synthetic Substitute, Uncemented, Open Approach (ICD-10-PCS; principal; 2018-07-30 07:30)
DX: M16.11 Unilateral primary osteoarthritis, right hip (principal); D62 Acute posthemorrhagic anemia; F17.210 Nicotine dependence, cigarettes, uncomplicated; Z86.718 Personal history of other venous thrombosis and embolism; Z86.711 Personal history of pulmonary embolism; Z79.01 Long term (current) use of anticoagulants; I71.4 Abdominal aortic aneurysm, without rupture; I73.9 Peripheral vascular disease, unspecified; J44.9 Chronic obstructive pulmonary disease, unspecified; N39.3 Stress incontinence (female) (male); Z79.899 Other long term (current) drug therapy; Z82.49 Family history of ischemic heart disease and other diseases of the circulatory system; Z90.710 Acquired absence of both cervix and uterus; Z90.79 Acquired absence of other genital organ(s); Z90.721 Acquired absence of ovaries, unilateral
CPT/HCPCS: 36415; 73501; 80051; 85025; 85610; 86850; 86900; 86901; 88300; 94640

== ENCOUNTER → 2020-05-29 | Outpatient (CLI) | payer MEDICARE, OTHER ==
--- NOTE | 2020-05-29 08:07 | US ---
EXAMINATION TYPE: US duplex aorta DATE OF EXAM: 05/29/2020 COMPARISON: Ultrasound aorta July 18, 2018 CLINICAL HISTORY: I71.4 Abdominal aortic aneurysm, without rupture. hx AAA. EXAM MEASUREMENTS: Abdominal Aorta: Proximal: 2.3 x 2.6 cm Mid: 2.6 x 2.6 cm Distal: 2.5 x 2.4 cm Bifurcation: Right- 1.2 x 0.8 cm Left- 1.1 x 1.0 cm AAA visualized between mid/distal Aorta= 3.4 x 3.7 cm IMPRESSION: AAA up to 3.7 cm transversely noted progressed from 3.4 cm prior study. At minimum reimag ing in 2 years time is advised to reassess.
== END | disposition home or self-care (01) ==
LOC: RADUSWWP 07:34
PROVIDERS: ATTEND Family Medicine
DX: I71.4 Abdominal aortic aneurysm, without rupture (principal)
CPT/HCPCS: 93979

== ENCOUNTER → 2020-08-17 | Outpatient (CLI) | payer MEDICARE, OTHER ==
--- NOTE | 2020-08-18 11:56 | MM ---
Reason for exam: screening (asymptomatic). Last mammogram was performed 3 years and 4 months ago. History: Patient is postmenopausal, has history of ovarian cancer at age 31, and has history of other cancer at age 29. Took hormonal contraceptives for 1 year. Physical Findings: A clinical breast exam by your physician is recommended on an annual basis and results should be correlated with mammographic findings. MG 3D Screening Mammo W/Cad Bilateral CC and MLO view(s) were taken. Prior study comparison: April 06, 2017, bilateral MG screening mammo w CAD. There are scattered fibroglandular densities. No significant changes when compared with prior studies. ASSESSMENT: Benign, BI-RAD 2 RECOMMENDATION: Routine screening mammogram of both breasts in 1 year.
== END | disposition home or self-care (01) ==
LOC: RADMAMWWP 11:01
PROVIDERS: ATTEND Family Medicine
DX: Z12.31 Encounter for screening mammogram for malignant neoplasm of breast (principal)
CPT/HCPCS: 77063; 77067

== ENCOUNTER → 2022-11-14 | Outpatient (CLI) | payer MEDICARE, OTHER ==
--- NOTE | 2022-11-14 09:17 | US ---
EXAMINATION TYPE: US duplex aorta DATE OF EXAM: 11/14/2022 COMPARISON: US on 05/29/2020 CLINICAL INDICATION: Female, 72 years old with history of I71.40 ABDOMINAL AORTIC ANEURYSM, WITHOUT R UPTURE,; Follow up mid/dist AAA TECHNIQUE: Multiple sonographic images of the abdominal aorta are obtained. FINDINGS: EXAM MEASUREMENTS: Abdominal Aorta: Proximal: 2.3x3.0cm Mid: 2.7x3.2cm Distal: 2.7x3.4cm Bifurcation: RT CHAITANYA:0.9x1.0cm LT CHAITANYA:0.8x0.9cm Mid/Distal Aorta fusiform AAA: 3.8x4.5cm HOG MAN NOTES: Aortic bifurcation difficult to obtain due to bowel gas, supplemental color images taken IMPRESSION: 1. Aneurysmal proximal abdominal aorta measuring up to 3.0 cm and mid abdominal aorta up to 3.2 cm. D istal abdominal aorta up to 3.4 cm. (Measured at 2.6 cm, 2.6 cm, and 2.5 cm, respectively, on 05/29/20 20). 2. Superimposed mid to distal abdominal aortic fusiform aneurysm measuring up to 4.5 cm (previously m easured as 3.7 cm).
== END | disposition home or self-care (01) ==
LOC: RADUSWWP 07:51
PROVIDERS: ATTEND Family Medicine
DX: I71.40 Abdominal aortic aneurysm, without rupture, unspecified (principal)
CPT/HCPCS: 93979

== ENCOUNTER → 2022-11-14 | Outpatient (CLI) | payer MEDICARE, OTHER ==
--- NOTE | 2022-11-14 09:28 | BD ---
EXAMINATION TYPE: Axial Bone Density DATE OF EXAM: 11/14/2022 CLINICAL HISTORY: 72 years old Female. ICD-10 CODE: M85.80 DISORDER OF BONE Height: 63.2 Weight: 147 FRAX RISK QUESTIONS: Glucocorticoids (More than 3mos): yes (Ex: prednisone, prednisolone, methylprednisolone, dexamethasone, and hydrocortisone). History of Fracture in Adulthood: yes Secondary Osteoporosis: yes 3. Menopause before 45: yes Current Tobacco Use: yes RISK FACTORS HISTORY OF: hx of rt shoulder fracture as an adult Spine Fracture: yes, lower back with surgical repair as an adult Surgery to Spine/Hip hypoplasty to lower back, and total right hip replacement Diet low in dairy products/other sources of calcium: yes Postmenopausal woman: yes, at 31 with a total hyst. Take estrogen and/or progesterone medications: yes, in the early past for only couple months Lost more than 2 inches in height since high school: yes Hyperparathyroidism: no Adrenal Insufficiency: no MEDICATIONS: Prednisone or other steroids: yes, for copd, for 5 yrs Additional Medications: vit d and calcium, statin for cholesterol, Additional History: multiple fx, early menopause, rt hip replacement and spine surgery, EXAM MEASUREMENTS: Bone mineral densitometry was performed using the [email or web address] System. Bone mineral density as measured about the Lumbar spine is: spinal surgery, not scanned Bone mineral density about the L hip (g/cm2): 0.687 T Score values are as follows: -----L Neck: -2.9 -----L Total: -2.5 Z Score values are as follows: -----L Neck: -1.2 -----L Total: -1.2 Bone mineral density is new to [facility]. Bone mineral density about the L Wrist (g/cm2): 0.365 T Score values are as follows: -----Dist. R+U: -4.4 -----Prox. R+U: -3.4 -----Radius total: -4.5 Z Score values are as follows: -----Dist. R+U: -2.5 -----Prox. R+U: -1.5 -----Radius total: -2.6 Bone mineral density pt is new to [facility]. FRAX%s: The graph provided illustrates a 44.0% chance for a major osteoporotic fx and a 23.2% chance for the hips probability for fx in 10 years time. IMPRESSION: Osteoporosis (T Score less than -2.5). There is increased fracture risk and therapy is usually indicated based on age. Re-Screen 1-2 years. NOTE: T-SCORE=SD OF THE YOUNG ADULT MEAN.
== END | disposition home or self-care (01) ==
LOC: RADBDWWP 07:49
PROVIDERS: ATTEND Family Medicine
DX: M81.0 Age-related osteoporosis without current pathological fracture (principal); M85.89 Other specified disorders of bone density and structure, multiple sites; Z78.0 Asymptomatic menopausal state; Z96.641 Presence of right artificial hip joint
CPT/HCPCS: 77080

== ENCOUNTER → 2023-01-04 | Outpatient (CLI) | payer MEDICARE, OTHER ==
[2023-01-04 13:09] LABS: African American GFR (CKD) 74 (>60 ml/min/1.73 sqM); Blood Urea Nitrogen 17 mg/dL (7-17); Non-African American GFR(CKD) 64 (>60 ml/min/1.73 sqM)
--- NOTE | 2023-01-05 08:18 | CT ---
EXAMINATION TYPE: CT angio abd aorta w/Runoff DATE OF EXAM: 01/04/2023 COMPARISON: None HISTORY: Numbness in bilateral lower extremities CT DLP: 1618.10 mGycm Automated exposure control for dose reduction was used. Contrast: None Technique: Axial images 2 mm thick sections. Reconstructed images performed on a separate computer by technologist FINDINGS: Emphysematous changes are at the visualized lung bases. There is a cystic structure adjacent to the d escending thoracic aorta within the prevertebral space. Liver and spleen adrenal glands appear unremarkable. Pancreas gallbladder are normal. Kidneys are nor mal without masses or hydronephrosis. There is a 2.1 cm cyst on the medial left kidney. Inferior vena cava is normal. Vascular calcifications within the aneurysmal aorta. Loops of bowel without oral con trast. Unremarkable. Diverticular changes without acute diverticulitis within the pelvis. Urinary mark dder is unremarkable. Aorta: Celiac axis and superior mesenteric artery origins are normal. Renal artery origins appear nor mal. Below the renal arteries there is an abdominal aortic aneurysm an AP diameter of 4.4 cm. This co ntinues to the bifurcation. Common iliac arteries are patent. Internal and external iliac vessels are patent. Common femoral arteries are patent. Profunda femoris vessels appear patent. Superficial femo ral arteries are not identified with contrast. Collateral vessels extend through the thighs bilateral ly. Vascular calcification is within the popliteal arteries. No contrast within the popliteal arterie s. Collateral flow reconstitutes trifurcation vessels on the right. Peroneal artery on the right is term inated in the mid calf region. Anterior tibial artery terminates in the distal calf. Posterior tibial artery appears to be patent to the level of the ankle. Left posterior tibial artery is patent at the level of the ankle. Anterior tibial artery is occluded within the mid calf region. Peroneal artery i s patent to the left calf region. IMPRESSION: 1. OBSTRUCTION OF THE SUPERFICIAL FEMORAL ARTERIES AND POPLITEAL ARTERIES. COLLATERAL FLOW RECONSTITU DENIA TRIFURCATION VESSELS BELOW THE KNEE LEVELS BILATERALLY. 2. 4.4 CM ABDOMINAL AORTIC ANEURYSM.
== END | disposition home or self-care (01) ==
LOC: RADCTMAIN 12:11
PROVIDERS: ATTEND Surgery
DX: I71.43 Infrarenal abdominal aortic aneurysm, without rupture (principal); I70.213 Atherosclerosis of native arteries of extremities with intermittent claudication, bilateral legs
CPT/HCPCS: 82565; 84520; 75635; 36415; Q9967

== ENCOUNTER → 2023-03-02 | Outpatient (CLI) | payer MEDICARE, OTHER ==
--- NOTE | 2023-03-03 13:09 | CA ---
Transthoracic Echo Report Name: Opal Atkinson Age: 72 Gender: F : 1950 Exam Date: 03/02/2023 17:06 Exam Location: [place] [facility] Ht (in): 63 Wt (lb): 147 Ordering Physician: Leandro Freeman MD ([id number]) Attending/Referring Phys: Airport Driver Mechelle Yuen [facility] Procedure CPT: Indications: E78.5 HYPERLIPIDEMIA, UNSPECIFIED Cardiac Hx: Technical Quality: Fair Contrast 1: Total Dose (mL): Contrast 2: Total Dose (mL): MEASUREMENTS (Male / Female) Normal Values 2D ECHO LV Diastolic Diameter PLAX 4.7 cm 4.2 - 5.9 / 3.9 - 5.3 cm LV Systolic Diameter PLAX 3.1 cm IVS Diastolic Thickness 0.9 cm 0.6 - 1.0 / 0.6 - 0.9 cm LVPW Diastolic Thickness 0.9 cm 0.6 - 1.0 / 0.6 - 0.9 cm LV Relative Wall Thickness 0.4 LVOT Diameter 2.0 cm M-MODE Aortic Root Diameter MM 3.0 cm LA Systolic Diameter MM 4.0 cm LA Ao Ratio MM 1.4 AV Cusp Separation MM 1.9 cm DOPPLER AV Peak Velocity 133.5 cm/s AV Peak Gradient 7.1 mmHg AV Mean Velocity 88.8 cm/s AV Mean Gradient 3.6 mmHg AV Velocity Time Integral 29.1 cm LVOT Peak Velocity 109.4 cm/s LVOT Peak Gradient 4.8 mmHg LVOT Velocity Time Integral 22.0 cm LVOT Stroke Volume 72.2 cm??? LVOT Stroke Volume Index 42.6 ml/m??? LVOT Cardiac Index 2579.3 cm???/min???m??? AV Area Cont Eq vti 2.5 cm??? AV Area Cont Eq pk 2.7 cm??? Mitral E Point Velocity 56.7 cm/s Mitral A Point Velocity 76.7 cm/s Mitral E to A Ratio 0.7 MV Deceleration Time 201.4 ms LV E' Lateral Velocity 9.8 cm/s Mitral E to LV E' Lateral Ratio 5.8 LV E' Septal Velocity 8.2 cm/s Mitral E to LV E' Septal Ratio 6.9 TR Peak Velocity 304.8 cm/s TR Peak Gradient 37.2 mmHg Right Atrial Pressure 8.0 mmHg Pulmonary Artery Systolic Pressu 45.2 mmHg Right Ventricular Systolic Press 45.2 mmHg FINDINGS Left Ventricle Normal Left ventricular size, wall thickness, systolic function with no obvious regional wall motion abnormalities. Left ventricular ejection fraction is estimated at 55-60%. Right Ventricle Normal right ventricular size. Moderate pulmonary hypertension. RVSP estimated at 45 mmHg Right Atrium Mild right atrial dilatation. Left Atrium Mild left atrial dilatation. Mitral Valve Structurally normal mitral valve. Mitral valve thickened. Trace mitral regurgitation. Aortic Valve Trileaflet aortic valve. Aortic valve sclerosis. No aortic regurgitation. Tricuspid Valve Structurally normal tricuspid valve. Trace tricuspid regurgitation. Pulmonic Valve Pulmonic valve not well visualized. Pericardium No pericardial effusion. Aorta Normal size aortic root. CONCLUSIONS Left ventricular ejection fraction is estimated at 55-60%. No obvious regional wall motion abnormalities. Moderate pulmonary hypertension with RVSP of 45 mmHg No significant valvular dysfunction Mild biatrial dilatation Previewed by: Dr Leandro Freeman (Electronically Signed) Final Date: 03 March 2023 13:08
== END | disposition home or self-care (01) ==
LOC: RADECHMAIN 16:40
PROVIDERS: ATTEND Student in an Organized Health Care Education/Training Program
DX: E78.5 Hyperlipidemia, unspecified (principal); I27.20 Pulmonary hypertension, unspecified
CPT/HCPCS: 93306

== ENCOUNTER 2023-07-11 05:31 | Observation (INO) | payer MEDICARE, OTHER ==
[2023-07-11 06:07] LABS: Basophils % (A) 0 %; Eosinophils % (A) 0 %; HCT 38.9 % (34.0-46.0); Lymphocytes # (A) 0.8 k/uL (1.0-4.8); Lymphocytes % (A) 8 %; MCH 29.1 pg (25.0-35.0); MCHC 33.4 g/dL (31.0-37.0); MCV 86.9 fL (80.0-100.0); Mean Platelet Volume 8.7; Monocytes # (A) 0.6 k/uL (0-1.0); Monocytes % (A) 6 %; Neutrophils # (A) 8.1 k/uL (1.3-7.7); Neutrophils % (A) 84 %; Platelet Count 287 k/uL (150-450); RBC 4.47 m/uL (3.80-5.40); RDW 13.5 % (11.5-15.5); WBC 9.6 k/uL (3.8-10.6)
--- NOTE | 2023-07-11 06:11 | XR ---
EXAMINATION TYPE: XR KUB DATE OF EXAM: 07/11/2023 6:06 AM CLINICAL HISTORY: Abdominal pain, upper gastric pain TECHNIQUE: Single KUB image of the abdomen is obtained. COMPARISON: CTA with runoff January 04, 2023 FINDINGS: Scattered gas is seen in non-distended small and large bowel loops. Surgical change right h ip is redemonstrated vertebroplasty L3 level mild compression fracture is again seen. Lung bases are clear. Mild Vascular calcification overlies the abdomen. IMPRESSION: Overall nonobstructive bowel gas pattern.
[2023-07-11 06:18] LABS: ALT 22 U/L (4-34); AST 36 U/L (14-36); African American GFR (CKD) 79 (>60 ml/min/1.73 sqM); Albumin 3.2 g/dL (3.5-5.0); Alkaline Phosphatase 240 U/L (38-126); Amylase 84 U/L (30-110); Anion Gap 4 mmol/L; Blood Urea Nitrogen 24 mg/dL (7-17); Calcium 9.1 mg/dL (8.4-10.2); Carbon Dioxide 28 mmol/L (22-30); Chloride 101 mmol/L (98-107); Glucose 111 mg/dL (74-99); Lipase 255 U/L (23-300); Non-African American GFR(CKD) 69 (>60 ml/min/1.73 sqM); Potassium 4.3 mmol/L (3.5-5.1); Sodium 133 mmol/L (137-145); Total Bilirubin 1.1 mg/dL (0.2-1.3); Total Protein 6.3 g/dL (6.3-8.2)
--- NOTE | 2023-07-11 07:01 | ED ---
Abdominal Pain HPI <Brian Sheffield - Last Filed: 07/11/23 08:04> - General Source: patient, RN notes reviewed Mode of arrival: EMS Limitations: no limitations - History of Present Illness MD Complaint: abdominal pain <Maribel Holt - Last Filed: 07/11/23 12:36> - General Chief Complaint: Abdominal Pain Stated Complaint: ABD PAIN Time Seen by Provider: 07/11/23 06:00 - History of Present Illness Initial Comments: This is a 73 year old female who presents to the emergency department for abdominal pain. States that this is in the epigastric and right upper quadrant regions. She has no radiation to the back or shoulder. Pain began about 3 weeks ago and has been fairly constant. Reports associated nausea but no vomiting. Denies any changes in bowel/bladder habits or fevers/chills. Does report a hx of abdominal aortic aneurysm that is just being monitored at this time. This does not cause her any abdominal pain. Most recent imaging was in December 2022. (Maribel Holt) - Related Data Home Medications Medication Instructions Recorded Confirmed Albuterol Inhaler [Ventolin Hfa 2 puff INHALATION RT-Q4H PRN 09/28/17 07/11/23 Inhaler] Rivaroxaban [Xarelto] 20 mg PO W/SUPPER 09/28/17 07/11/23 Atorvastatin Calcium [Lipitor] 40 mg PO HS 07/11/23 07/11/23 Calcium Carbonate/Vitamin D3 1 tab PO DAILY 07/11/23 07/11/23 [Calcium 600-Vit D3 10 mcg (400 Iu)] Co Q10 100 mg PO DAILY 07/11/23 07/11/23 Fluticasone/Umeclidin/Vilanter 1 puff INHALATION RT-DAILY 07/11/23 07/11/23 [Trelegy Ellipta 100-62.5-25] Allergies Allergy/AdvReac Type Severity Reaction Status Date / Time No Known Allergies Allergy Verified 07/11/23 09:57 Review of Systems ROS Other: All systems not noted in ROS Statement are negative. <Brian Sheffield - Last Filed: 07/11/23 08:04> ROS Other: All systems not noted in ROS Statement are negative. <Maribel Holt - Last Filed: 07/11/23 12:36> ROS Statement: Those systems with pertinent positive or pertinent negative responses have been documented in the HPI. 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 History of Any Multi-Drug Resistant Organisms: None Reported Past Surgical History: Back Surgery, Hysterectomy, Orthopedic Surgery, Tonsillectomy Additional Past Surgical History / Comment(s): Ectopic with salpingectomy/ovary removed then hysterectomy d/t cancer and has part of one ovary left, kyphoplasty, R shoulder fracture with surgery/screws in place. Past Anesthesia/Blood Transfusion Reactions: No Reported Reaction Additional Past Anesthesia/Blood Transfusion Reaction / Comment(s): Pt believes she may have received blood years ago with ectopic . Past Psychological History: No Psychological Hx Reported Smoking Status: Current every day smoker Past Alcohol Use History: None Reported Past Drug Use History: None Reported - Past Family History Mother Family Medical History: Dementia, Hypertension Additional Family Medical History / Comment(s): AL[place]HEIM[place] Father Family Medical History: Myocardial Infarction ([place]) Additional Family Medical History / Comment(s): AT AGE 59 FROM [place] Brother(s) Family Medical History: Myocardial Infarction ([place]) Additional Family Medical History / Comment(s): ALSO AT AGE 59 FROM [place] AND A 2ND BROTHER W/VASCULAR DISEASE. Sister(s) Family Medical History: Cancer Additional Family Medical History / Comment(s): LUNG CANCER(SMOKER) <Maribel Holt - Last Filed: 07/11/23 12:36> General Exam Limitations: no limitations General appearance: alert, in no apparent distress Head exam: Present: atraumatic, normocephalic, normal inspection Respiratory exam: Present: normal lung sounds bilaterally. Absent: respiratory distress, wheezes, rales, rhonchi, stridor Cardiovascular Exam: Present: regular rate, normal rhythm, normal heart sounds. Absent: systolic murmur, diastolic murmur, rubs, gallop, clicks GI/Abdominal exam: Present: soft, tenderness (epigastric), normal bowel sounds. Absent: distended Neurological exam: Present: alert, oriented X3, CN II-XII intact Psychiatric exam: Present: normal affect, normal mood Skin exam: Present: warm, dry, intact, normal color. Absent: rash <Maribel Holt - Last Filed: 07/11/23 12:36> Course Vital Signs 07/11/23 07/11/23 07/11/23 05:37 09:10 09:44 Temperature 97.7 F 98.1 F 97.1 F L Pulse Rate 71 78 Pulse Rate [ 53 L Pulse Oximetery ] Respiratory 18 16 18 Rate Blood Pressure 122/60 133/53 Blood Pressure 107/53 [Left Arm Sitting] O2 Sat by Pulse 95 92 L 97 Oximetry Medical Decision Making - Lab Data Result diagrams: 07/11/23 05:44 07/11/23 05:44 <Brian Sheffield - Last Filed: 07/11/23 08:04> - Lab Data Result diagrams: 07/11/23 05:44 07/11/23 05:44 - Radiology Data Radiology results: report reviewed, image reviewed <Maribel Holt - Last Filed: 07/11/23 12:36> - Medical Decision Making U: Sinus rhythm with ventricular rate of 62, MO interval 108, QRS duration 116, QTC [address] segment elevation. (Brian Sheffield) This is a 73 year old female who presents to the emergency department for abdominal pain. Was pt. sent in by a medical professional or institution? @ -No Did you speak to anyone other than the patient for history? @ -No Did you review nursing and triage notes? @ -Yes, and I agree, it is accurate with regards to the patient's symptoms. Were old charts reviewed? @ -CT angio of the abdomen from 01/04/23 measuring the AAA at 4.4 cm. Differential Diagnosis? @ -Differential Abdominal Pain Women: Appendicitis, Cholecystitis, diverticulosis, ischemic bowel, pancreatitis, hepatitis, UTI, gastroenteritis, AAA, incarcerated hernia, bowel obstruction, constipation, inflammatory bowel, hepatitis, peptic ulcer disease, splenic infarction, perforated viscus, vulvitis, ovarian torsion, PID, kidney stone, placenta abruption, this is not meant to be an all-inclusive list EKG interpreted by me (3pts min.)? @ -EKG interpreted by me demonstrating the following: Sinus rhythm. Ventricular rate 62 bpm, MO interval 18 ms, QRS duration 160 ms, QTc 412 ms. X-rays interpreted by me (1pt min.)? @ -KUB x-ray obtained. My interpretation identifies no dilation of the large or small bowel loops. CT interpreted by me (1pt min.)? @ -Not obtained U/S interpreted by me (1pt. min.)? @ -Gallbladder US obtained. My interpretation identifies cholelithiasis. What testing was considered but not performed? (CT, X-rays, U/S, labs)? Why? @ -None What meds were considered but not given? Why? @ -None Did you discuss the management of the patient with other professionals? @ -Dr. Sheffield discussed the case with Dr. Martel, general surgery, who accepts the patient for admission. Did you reconcile home meds? @ -No Was smoking cessation discussed for >3mins.? @ -No Was critical care preformed (if so, how long)? @ -No Were there social determinants of health that impacted care today? How? (Homelessness, low income, unemployed, alcoholism, drug addiction, transpo rtation, low edu. Level, literacy, decrease access to med. care, [place] [facility], rehab)? @ -No Was there de-escalation of care discussed even if they declined? (Discuss DNR or withdrawal of care, Hospice)? @ -No What co-morbidities impacted this encounter? (DM, HTN, Smoking, COPD, CAD, Cancer, CVA, Hep., AIDS, mental health diagnosis, sleep apnea, morbid obesity)? @ -COPD, AAA, vascular disorder Was patient admitted / discharged? @ -Admitted. Lab work obtained revealing signs of dehydration and a mild elevation in alkaline phosphatase at 240. Lab work was otherwise unremarkable. KUB x-ray obtained initially revealing no acute process. Gallbladder ultrasound obtained revealing cholelithiasis and sludge with positive sonographic Harris sign. There was no abnormal thickening, and results were read as equivocal. However given the description of her symptoms with positive sonographic Harris sign, this is thought to be related to an acute cholecystitis. They were able to visualize the AAA on the US as well, and it was stable at 4.3 cm. Patient admitted to general surgery for acute cholecystitis. She was kept nothing by mouth and started on Zosyn and IV fluids. Blood cultures obtained. Consult placed for medicine for medical management and surgical clearance. Undiagnosed new problem with uncertain prognosis? @ -None Drug Therapy requiring intensive monitoring for toxicity (Heparin, Nitro, Insuli n, Cardizem)? @ -None Were any procedures done? @ -None Diagnosis/symptom? @ -Acute cholecystitis Acute, or Chronic, or Acute on Chronic? @ -Acute Uncomplicated (without systemic symptoms) or Complicated (systemic symptoms)? @ -Complicated Side effects of treatment? @ -None Exacerbation, Progression, or Severe Exacerbation] @ -Not applicable Poses a threat to life or bodily function? @ -Yes This case was discussed in detail with the attending ED physician, Dr. Sheffield. Presentation, findings, and treatment plan discussed in detail as well. (Maribel Holt) - Lab Data Lab Results 07/11/23 07/11/23 07/11/23 Range/Units 05:44 05:44 05:44 WBC 9.6 (3.8-10.6) k/uL RBC 4.47 (3.80-5.40) m/uL Hgb 13.0 (11.4-16.0) gm/dL Hct 38.9 (34.0-46.0) % MCV 86.9 (80.0-100.0) fL MCH 29.1 (25.0-35.0) pg MCHC 33.4 (31.0-37.0) g/dL RDW 13.5 (11.5-15.5) % Plt Count 287 (150-450) k/uL MPV 8.7 Neutrophils % 84 % Lymphocytes % 8 % Monocytes % 6 % Eosinophils % 0 % Basophils % 0 % Neutrophils # 8.1 H (1.3-7.7) k/uL Lymphocytes # 0.8 L (1.0-4.8) k/uL Monocytes # 0.6 (0-1.0) k/uL Eosinophils # 0.0 (0-0.7) k/uL Basophils # 0.0 (0-0.2) k/uL Sodium 133 L (137-145) mmol/L Potassium 4.3 (3.5-5.1) mmol/L Chloride 101 (98-107) mmol/L Carbon Dioxide 28 (22-30) mmol/L Anion Gap 4 mmol/L BUN 24 H (7-17) mg/dL Creatinine 0.86 (0.52-1.04) mg/dL Est GFR (CKD-EPI)AfAm 79 (>60 ml/min/1.73 sqM) Est GFR (CKD-EPI)NonAf 69 (>60 ml/min/1.73 sqM) Glucose 111 H (74-99) mg/dL Calcium 9.1 (8.4-10.2) mg/dL Total Bilirubin 1.1 (0.2-1.3) mg/dL AST 36 (14-36) U/L ALT 22 (4-34) U/L Alkaline Phosphatase 240 H (38-126) U/L Total Protein 6.3 (6.3-8.2) g/dL Albumin 3.2 L (3.5-5.0) g/dL Amylase 84 (30-110) U/L Lipase 255 (23-300) U/L Urine Color Yellow Urine Appearance Cloudy H (Clear) Urine pH 5.5 (5.0-8.0) Ur Specific [place] 1.030 (1.001-1.035) Urine Protein 1+ H (Negative) Urine Glucose (UA) Negative (Negative) Urine Ketones Trace H (Negative) Urine Blood Small H (Negative) Urine Nitrite Negative (Negative) Urine Bilirubin 1+ H (Negative) Urine Urobilinogen 3.0 (<2.0) mg/dL Ur Leukocyte Esterase Large H (Negative) Urine RBC 2 (0-5) /hpf Urine WBC 3 (0-5) /hpf Ur Squamous Epith Cells 3 (0-4) /hpf Hyaline Casts 22 H (0-2) /lpf Urine Mucus Many H (None) /hpf Disposition <Brian Sheffield - Last Filed: 07/11/23 08:04> Time of Disposition: 08:15 <Maribel Holt - Last Filed: 07/11/23 12:36> Clinical Impression: Acute cholecystitis Disposition: ADMITTED IP TO THIS HOSP
--- NOTE | 2023-07-11 07:46 | US ---
EXAMINATION TYPE: US gallbladder DATE OF EXAM: 07/11/2023 COMPARISON: CTA January 04, 2023 CLINICAL INDICATION: Female, 73 years old with history of Epigastric pain; Epigastric pain and nausea x couple weeks TECHNIQUE: Multiple sonographic images of the right upper quadrant are obtained. FINDINGS: EXAM MEASUREMENTS: Liver Length: 15.4 cm Gallbladder Wall: 0.2 cm CBD: 0.7 cm Right Kidney: 9.6 x 3.8 x 4.8 cm Pancreas: visualized portions wnl, limited by overlying midline bowel gas Liver: 9.4 x 6.3 x 13.1cm heterogeneous mass left lobe Gallbladder: cholelithiasis, sludge Evidence for sonographic Harris's sign: yes CBD: Upper limits of normal at pancreatic head Right Kidney: 1.1cm cyst lateral mid pole Mid Aorta: 3.8 x 4.3cm aneurysm IMPRESSION: Known AAA redemonstrated. Heterogeneous liver consistent with fatty infiltrative hepatoce llular disease is present. Gallstones are seen. Sonographic Harris's sign positive. Findings are equi vocal as there is no abnormal wall thickening. Consider HIDA scan follow-up to further evaluate.
[2023-07-11] MEDS ORDERED: SODIUM CHLORIDE 0.9% 1,000 ML IV STA (08:00)
[2023-07-11] MEDS ORDERED: KETOROLAC 15 MG/ML 1 ML VIAL IVP STA (08:01)
[2023-07-11] MEDS ORDERED: MORPHINE SULFATE 2 MG/ML SYRINGE IVP STA (08:01)
[2023-07-11] MEDS ORDERED: NALOXONE 0.4 MG/ML 1 ML VIAL IV PRN ×2 (08:15→11:39)
[2023-07-11] MEDS ORDERED: ONDANSETRON 4 MG/2 ML VIAL IVP PRN ×2 (08:15→11:39)
[2023-07-11] MEDS ORDERED: MORPHINE SULFATE 2 MG/ML SYRINGE IVP PRN (08:16)
[2023-07-11] MEDS ORDERED: ACETAMINOPHEN IV (For NPO) 1,000 MG in EMPTY BAG 1 BAG IVPB PRN (08:16)
[2023-07-11] MEDS ORDERED: MORPHINE SULFATE 4 MG/ML SYRINGE IVP PRN (08:16)
[2023-07-11 08:33] LABS: Appearance,Urine Cloudy (Clear); Bilirubin,Urine 1+ (Negative); Blood,Urine Small (Negative); Color,Urine Yellow; Glucose,Urine (UA) Negative (Negative); Hyaline Casts,Urine 22 /lpf (0-2); Ketones,Urine Trace (Negative); Leukocyte Esterase,Urine Large (Negative); Mucus,Urine Many /hpf; Nitrite,Urine Negative (Negative); PH, Urine 5.5 (5.0-8.0); Protein,Urine 1+ (Negative); RBC,Urine 2 /hpf (0-5); Squamous Epithelial Cell,Urine 3 /hpf (0-4); WBC,Urine 3 /hpf (0-5)
[2023-07-11] MEDS: PIPERACILLIN-TAZOBACTAM 3.375 GM in SODIUM CHLORIDE 0.9% 100 ML IVPB SCH ×2 (08:55→16:20)
[2023-07-11] MEDS ORDERED: IV FLUID CONTINUATION 1,000 ML IV ONE ×2 (09:44→11:26)
[2023-07-11] MEDS ORDERED: HEPARIN SODIUM,PORCINE 5,000 UNIT/ML 1 ML VIAL SQ ONE (10:08)
--- NOTE | 2023-07-11 10:14 | P.GSHP ---
History of Present Illness H&P Date: 07/11/23 Chief Complaint: Right upper quadrant. This is a 73-year-old female who presents to the emergency complaints of a three-day history of right upper quadrant pain. Patient states she's had pain off and on for the last 3 weeks. Patient was worked up emergency room found have evidence of cholecystitis. 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 History of Any Multi-Drug Resistant Organisms: None Reported Past Surgical History: Back Surgery, Hysterectomy, Orthopedic Surgery, Tonsillectomy Additional Past Surgical History / Comment(s): Ectopic with salpingectomy/ovary removed then hysterectomy d/t cancer and has part of one ovary left, kyphoplasty, R shoulder fracture with surgery/screws in place. Past Anesthesia/Blood Transfusion Reactions: No Reported Reaction Additional Past Anesthesia/Blood Transfusion Reaction / Comment(s): Pt believes she may have received blood years ago with ectopic . Past Psychological History: No Psychological Hx Reported Smoking Status: Current every day smoker Past Alcohol Use History: None Reported Past Drug Use History: None Reported - Past Family History Mother Family Medical History: Dementia, Hypertension Additional Family Medical History / Comment(s): ALZHEIMERS Father Family Medical History: Myocardial Infarction ([place]) Additional Family Medical History / Comment(s): AT AGE 59 FROM [place] Brother(s) Family Medical History: Myocardial Infarction ([place]) Additional Family Medical History / Comment(s): ALSO AT AGE 59 FROM [place] AND A 2ND BROTHER W/VASCULAR DISEASE. Sister(s) Family Medical History: Cancer Additional Family Medical History / Comment(s): LUNG CANCER(SMOKER) Medications and Allergies Home Medications Medication Instructions Recorded Confirmed Type Albuterol Inhaler [Ventolin Hfa 2 puff INHALATION RT-Q4H PRN 09/28/17 07/11/23 History Inhaler] Rivaroxaban [Xarelto] 20 mg PO W/SUPPER 09/28/17 07/11/23 History Atorvastatin Calcium [Lipitor] 40 mg PO HS 07/11/23 07/11/23 History Calcium Carbonate/Vitamin D3 1 tab PO DAILY 07/11/23 07/11/23 History [Calcium 600-Vit D3 10 mcg (400 Iu)] Co Q10 100 mg PO DAILY 07/11/23 07/11/23 History Fluticasone/Umeclidin/Vilanter 1 puff INHALATION RT-DAILY 07/11/23 07/11/23 History [Trelegy Ellipta 100-62.5-25] Allergies Allergy/AdvReac Type Severity Reaction Status Date / Time No Known Allergies Allergy Verified 07/11/23 09:57 Surgical - Exam Vital Signs Temp Pulse Resp BP Pulse Ox 97.7 F 71 18 122/60 95 07/11/23 05:37 07/11/23 05:37 07/11/23 05:37 07/11/23 05:37 07/11/23 05:37 - General well developed, well nourished, no distress - Eyes PERRL - ENT normal pinna - Neck no masses - Respiratory normal expansion - Cardiovascular Rhythm: regular - Abdomen Right upper quadrant pain with positive Harris sign Abdomen: soft Results - Labs 07/11/23 05:44 07/11/23 05:44 Abnormal Lab Results - Last 24 Hours (Table) 07/11/23 07/11/23 07/11/23 Range/Units 05:44 05:44 05:44 Neutrophils # 8.1 H (1.3-7.7) k/uL Lymphocytes # 0.8 L (1.0-4.8) k/uL Sodium 133 L (137-145) mmol/L BUN 24 H (7-17) mg/dL Glucose 111 H (74-99) mg/dL Alkaline Phosphatase 240 H (38-126) U/L Albumin 3.2 L (3.5-5.0) g/dL Urine Appearance Cloudy H (Clear) Urine Protein 1+ H (Negative) Urine Ketones Trace H (Negative) Urine Blood Small H (Negative) Urine Bilirubin 1+ H (Negative) Ur Leukocyte Esterase Large H (Negative) Hyaline Casts 22 H (0-2) /lpf Urine Mucus Many H (None) /hpf Diabetes panel 07/11/23 Range/Units 05:44 Sodium 133 L (137-145) mmol/L Potassium 4.3 (3.5-5.1) mmol/L Chloride 101 (98-107) mmol/L Carbon Dioxide 28 (22-30) mmol/L BUN 24 H (7-17) mg/dL Creatinine 0.86 (0.52-1.04) mg/dL Glucose 111 H (74-99) mg/dL Calcium 9.1 (8.4-10.2) mg/dL AST 36 (14-36) U/L ALT 22 (4-34) U/L Alkaline Phosphatase 240 H (38-126) U/L Total Protein 6.3 (6.3-8.2) g/dL Albumin 3.2 L (3.5-5.0) g/dL Calcium panel 07/11/23 Range/Units 05:44 Calcium 9.1 (8.4-10.2) mg/dL Albumin 3.2 L (3.5-5.0) g/dL Pituitary panel 07/11/23 Range/Units 05:44 Sodium 133 L (137-145) mmol/L Potassium 4.3 (3.5-5.1) mmol/L Chloride 101 (98-107) mmol/L Carbon Dioxide 28 (22-30) mmol/L BUN 24 H (7-17) mg/dL Creatinine 0.86 (0.52-1.04) mg/dL Glucose 111 H (74-99) mg/dL Calcium 9.1 (8.4-10.2) mg/dL Adrenal panel 07/11/23 Range/Units 05:44 Sodium 133 L (137-145) mmol/L Potassium 4.3 (3.5-5.1) mmol/L Chloride 101 (98-107) mmol/L Carbon Dioxide 28 (22-30) mmol/L BUN 24 H (7-17) mg/dL Creatinine 0.86 (0.52-1.04) mg/dL Glucose 111 H (74-99) mg/dL Calcium 9.1 (8.4-10.2) mg/dL Total Bilirubin 1.1 (0.2-1.3) mg/dL AST 36 (14-36) U/L ALT 22 (4-34) U/L Alkaline Phosphatase 240 H (38-126) U/L Total Protein 6.3 (6.3-8.2) g/dL Albumin 3.2 L (3.5-5.0) g/dL - Imaging US - abdomen: report reviewed (Cholelithiasis, sludge) Assessment and Plan Assessment: Acute cholecystitis. Patient will undergo laparoscopic cholecystectomy.
[2023-07-11] MEDS ORDERED: SUCCINYLCHOLINE CHLORIDE 200 MG/10 ML VIAL IV ONE (10:34)
[2023-07-11] MEDS ORDERED: LIDOCAINE 1% INJ 10MG/ML (20 ML MDV) ONE (10:34)
[2023-07-11] MEDS ORDERED: PROPOFOL 10 MG/ML 20 ML VIAL IV ONE (10:34)
[2023-07-11] MEDS ORDERED: NEOSTIGMINE 1 MG/ML 10 ML VIAL ONE (10:34)
[2023-07-11] MEDS ORDERED: fentaNYL (PF) 50 MCG/ML 2 ML AMP ONE (10:34)
[2023-07-11] MEDS ORDERED: ROCURONIUM 10 MG/ML (5 ML VIAL) IV ONE (10:34)
[2023-07-11] MEDS ORDERED: GLYCOPYRROLATE 0.2 MG/ML 2 ML VIAL ONE (10:34)
[2023-07-11] MEDS ORDERED: KETOROLAC 15 MG/ML 1 ML VIAL ONE (10:34)
[2023-07-11] MEDS ORDERED: MIDAZOLAM 2 MG/2 ML VIAL ONE (10:34)
[2023-07-11] MEDS ORDERED: LACTATED RINGERS 1,000 ML IV ONE (11:39)
[2023-07-11] MEDS ORDERED: HYDROmorphone 1 MG/ML 1 ML SYRINGE IVP PRN (11:39)
[2023-07-11] MEDS ORDERED: HYDROmorphone 0.5 MG/0.5 ML SYRINGE IVP PRN (11:39)
--- NOTE | 2023-07-11 11:39 | P.OP ---
Date of Procedure: 07/11/23 Preoperative Diagnosis: Cholecystitis Postoperative Diagnosis: Cholecystitis Procedure(s) Performed: Laparoscopic cholecystectomy Anesthesia: JOVANA Surgeon: Blake Martel Estimated Blood Loss (ml): 5 Pathology: other (Gallbladder) Condition: stable Disposition: PACU Description of Procedure: The patient was placed on the operating table. The patient received a general endotracheal tube anesthesia. The patients abdomen was prepped and draped in the usual sterile fashion. Through an infraumbilical stab incision, the fascia of the anterior abdominal wall was grasped with a pair of Kochers and then the Veress needle was placed in the peritoneal cavity. Position of the Veress needle was confirmed with positive drop test. The abdomen was then insufflated. After adequate insufflation, the 10 mm trocar was placed in the peritoneal cavity. Following this the laparoscope was placed in the peritoneal cavity. The patient was placed in the head-up, right side up position and then a 5 mm trocar was placed in the right lateral and right subcostal position under direct visualization. A 8 mm trocar was placed in the epigastric position. The gallbladder was grasped in the fundus and infundibulum. Traction on the gallbladder was placed in the lateral and the cephalad positions. The triangle of [place] was visualized.. The cystic duct was bluntly dissected until the union of the cystic duct and common bile duct was seen. A critical view of safety was achieved. The cystic duct was then divided and sealed with the Harmonic scissors. A PDS Endoloop was then placed throughout the cystic duct stump. The cystic artery divided and sealed with the Harmonic scissors. The gallbladder was then removed from the liver bed using Harmonic scissors. The gallbladder was then extracted through the epigastric port site. Operative field was checked for any bleeding spots and Harmonic scissors was used to coagulate the liver bed. The abdomen was irrigated. The trocars were removed. The skin was closed using interrupted 3-0 Vicryl suture. Dermabond dressing were applied. The patient tolerated the procedure well.
[2023-07-11] MEDS ORDERED: ALBUTEROL NEBULIZED 2.5 MG/3 ML INHALATION PRN (11:52)
[2023-07-11] MEDS ORDERED: KETOROLAC 15 MG/ML 1 ML VIAL IVP SCH (13:00)
--- NOTE | 2023-07-11 13:59 | P.CONS ---
History of Present Illness - Reason for Consult Hyponatremia - History of Present Illness 73-year-old female came in with right upper quadrant abdominal pain found to have cholecystitis underwent laparoscopic-assisted clinically doing well patient is hyponatremic receiving IV fluids at this time. Patient is still coming out of anesthesia and bit drowsy to answer my questions. REVIEW OF SYSTEMS: CONSTITUTIONAL: No fever, no malaise, no fatigue. HEENT: No recent visual problems or hearing problems. Denied any sore throat. CARDIOVASCULAR: No chest pain, orthopnea, PND, no palpitations, no syncope. PULMONARY: No shortness of breath, no cough, no hemoptysis. GASTROINTESTINAL: No diarrhea, no nausea, no vomiting, no abdominal pain. NEUROLOGICAL: No headaches, no weakness, no numbness. HEMATOLOGICAL: Denies any bleeding or petechiae. GENITOURINARY: Denies any burning micturition, frequency, or urgency. MUSCULOSKELETAL/RHEUMATOLOGICAL: Denies any joint pain, swelling, or any muscle pain. ENDOCRINE: Denies any polyuria or polydipsia. The rest of the 14-point review of systems is negative. PHYSICAL EXAMINATION: GENERAL: The patient is drowsy and oriented x3, not in any acute distress. Well developed, well nourished. HEENT: Pupils are round and equally reacting to light. EOMI. No scleral icterus. No conjunctival pallor. Normocephalic, atraumatic. No pharyngeal erythema. No thyromegaly. CARDIOVASCULAR: S1 and S2 present. No murmurs, rubs, or gallops. PULMONARY: Chest is clear to auscultation, no wheezing or crackles. ABDOMEN: Soft, nontender, nondistended, normoactive bowel sounds. No palpable organomegaly. MUSCULOSKELETAL: No joint swelling or deformity. EXTREMITIES: No cyanosis, clubbing, or pedal edema. NEUROLOGICAL: Gross neurological examination did not reveal any focal deficits. SKIN: No rashes. Assessment and plan -Hypervolemic hyponatremia continue with IV fluids repeat basic metabolic profile tomorrow -Acute cholecystitis status post cholecystectomy antibiotics as per primary service -History of DVT patient will be resumed on anticoagulation if okay with the general surgery -COPD without any acute exacerbation Peripheral vascular disease DVT prophylaxis: Patient is on anticoagulation Past Medical History Past Medical History: Cancer, COPD, Deep Vein Thrombosis (DVT), Eye Disorder, Pneumonia, Pulmonary Embolus (PE), Vascular Disorder Additional Past Medical History / Comment(s): DVT L leg, pulmonary embolism R lung, cyst between lung and spine being monitored, bronchitis, abdominal aortic aneurysm being monitored (pt does not recall size), PVD, urterine cancer with hysterectomy, beginnings of cataracts, shingelles in 1996. History of Any Multi-Drug Resistant Organisms: None Reported Past Surgical History: Back Surgery, Hysterectomy, Orthopedic Surgery, Tonsillectomy Additional Past Surgical History / Comment(s): Ectopic with salpingectomy/ovary removed then hysterectomy d/t cancer and has part of one ovary left, kyphoplasty, R shoulder fracture with surgery/screws in place. Past Anesthesia/Blood Transfusion Reactions: No Reported Reaction Additional Past Anesthesia/Blood Transfusion Reaction / Comm: Pt believes she may have received blood years ago with ectopic . Past Psychological History: No Psychological Hx Reported Smoking Status: Current every day smoker Past Alcohol Use History: None Reported Past Drug Use History: None Reported - Past Family History Mother Family Medical History: Dementia, Hypertension Additional Family Medical History / Comment(s): ALZHEIMERS Father Family Medical History: Myocardial Infarction ([place]) Additional Family Medical History / Comment(s): AT AGE 59 FROM [place] Brother(s) Family Medical History: [place] Additional Family Medical History / Comment(s): ALSO AT AGE 59 FROM [place] AND A 2ND BROTHER W/VASCULAR DISEASE. Sister(s) Family Medical History: Cancer Additional Family Medical History / Comment(s): LUNG CANCER(SMOKER) Medications and Allergies Home Medications Medication Instructions Recorded Confirmed Type Albuterol Inhaler [Ventolin Hfa 2 puff INHALATION RT-Q4H PRN 09/28/17 07/11/23 History Inhaler] Rivaroxaban [Xarelto] 20 mg PO W/SUPPER 09/28/17 07/11/23 History Atorvastatin Calcium [Lipitor] 40 mg PO HS 07/11/23 07/11/23 History Calcium Carbonate/Vitamin D3 1 tab PO DAILY 07/11/23 07/11/23 History [Calcium 600-Vit D3 10 mcg (400 Iu)] Co Q10 100 mg PO DAILY 07/11/23 07/11/23 History Fluticasone/Umeclidin/Vilanter 1 puff INHALATION RT-DAILY 07/11/23 07/11/23 History [Trelegy Ellipta 100-62.5-25] Allergies Allergy/AdvReac Type Severity Reaction Status Date / Time No Known Allergies Allergy Verified 07/11/23 09:57 Physical Exam Vitals: Vital Signs Temp Pulse Pulse Resp BP BP Pulse Ox 07/11/23 12:10 63 16 155/68 94 L 07/11/23 11:55 67 16 120/62 97 07/11/23 11:40 97.3. F H 76 14 129/62 96 07/11/23 09:44 97.1 F L 53 L 18 107/53 97 07/11/23 09:10 98.1 F 78 16 133/53 92 L 07/11/23 05:37 97.7 F 71 18 122/60 95 Intake and Output 07/10/23 07/11/23 07/11/23 22:59 06:59 14:59 Intake Total 1300 Output Total 5 Balance 1295 Intake: IV 1300 Output: Estimated Blood Loss 5 Other: Weight 59.421 kg Results CBC & Chem 7: 07/11/23 05:44 07/11/23 05:44 Labs: Abnormal Lab Results - Last 24 Hours (Table) 07/11/23 07/11/23 07/11/23 Range/Units 05:44 05:44 05:44 Neutrophils # 8.1 H (1.3-7.7) k/uL Lymphocytes # 0.8 L (1.0-4.8) k/uL Sodium 133 L (137-145) mmol/L BUN 24 H (7-17) mg/dL Glucose 111 H (74-99) mg/dL Alkaline Phosphatase 240 H (38-126) U/L Albumin 3.2 L (3.5-5.0) g/dL Urine Appearance Cloudy H (Clear) Urine Protein 1+ H (Negative) Urine Ketones Trace H (Negative) Urine Blood Small H (Negative) Urine Bilirubin 1+ H (Negative) Ur Leukocyte Esterase Large H (Negative) Hyaline Casts 22 H (0-2) /lpf Urine Mucus Many H (None) /hpf
[2023-07-11] MEDS: SODIUM CHLORIDE 0.9% 1,000 ML IV SCH ×2 (14:44→16:22)
[2023-07-11] MEDS: FAMOTIDINE 20 MG/2 ML VIAL IV SCH ×2 (14:47→20:37)
[2023-07-11] MEDS: KETOROLAC 15 MG/ML 1 ML VIAL IVP SCH (20:37)
[2023-07-11] MEDS ORDERED: ATORVASTATIN 40 MG TAB PO SCH (21:00)
[2023-07-12] MEDS: PIPERACILLIN-TAZOBACTAM 3.375 GM in SODIUM CHLORIDE 0.9% 100 ML IVPB SCH ×2 (00:24→11:05)
[2023-07-12] MEDS: KETOROLAC 15 MG/ML 1 ML VIAL IVP SCH ×2 (04:13→11:04)
[2023-07-12] MEDS: SODIUM CHLORIDE 0.9% 1,000 ML IV SCH (04:22)
[2023-07-12] MEDS ORDERED: SYMBICORT 80-4.5 MCG INHALER INHALATION SCH (08:00)
[2023-07-12] MEDS ORDERED: HYDROcodone/APAP 5-325MG 1 EACH TAB PO PRN (08:09)
[2023-07-12 08:24] VITALS: BP 97/51; PULSE 52; RESP 17; TEMP 97.6
[2023-07-12] MEDS: IPRATROPIUM 0.5 MG/2.5 ML NEBU INHALATION SCH ×2 (08:57→12:05)
[2023-07-12] MEDS ORDERED: ENOXAPARIN 40 MG/0.4 ML SYRINGE SQ SCH (09:00)
[2023-07-12] MEDS: FAMOTIDINE 20 MG/2 ML VIAL IV SCH (11:07)
--- NOTE | 2023-07-12 12:13 | P.DS ---
Providers Date of admission: 07/11/23 07:57 Expected date of discharge: 07/12/23 Attending physician: Blake Martel Consults: 07/11/23 08:15 Consult Physician Urgent Consulting Provider: Juan Sharpe Consult Reason/Comments: Medical management/surgical clearance Do you want consulting provider notified?: Yes Primary care physician: Lj Menard [facility] Course: Discharge diagnosis 1. Cholecystitis status post laparoscopic cholecystectomy Hospital course This is a 73-year-old female presented with right upper quadrant abdominal pain for the past 3 weeks. Ultrasound had shown gallstones and positive Harris sign. Patient is status post laparoscopic cholecystectomy. She tolerated surgery well. Her pain is controlled. She is tolerating diet. She's having flatus. She has been up and ambulating. She's afebrile. She is stable for discharge. Please refer to chart for any further details. Physician Junior Web Designer note has been reviewed by physician. Signing provider agrees with the documented findings, assessment, and plan of care. Patient Condition at Discharge: Stable Plan - Discharge Summary Discharge Rx Participant: No New Discharge Prescriptions: New HYDROcodone/APAP 5-325MG [[place] 5-325] 1 tab PO Q6HR PRN 3 Days #12 tab PRN Reason: Pain Continue Rivaroxaban [Xarelto] 20 mg PO W/SUPPER Albuterol Inhaler [Ventolin Hfa Inhaler] 2 puff INHALATION RT-Q4H PRN PRN Reason: Shortness Of Breath Atorvastatin Calcium [Lipitor] 40 mg PO HS Calcium Carbonate/Vitamin D3 [Calcium 600-Vit D3 10 mcg (400 Iu)] 1 tab PO DAILY Fluticasone/Umeclidin/Vilanter [Trelegy Ellipta 100-62.5-25] 1 puff INHALATION RT-DAILY Co Q10 100 mg PO DAILY Discharge Medication List Albuterol Inhaler [Ventolin Hfa Inhaler] 2 puff INHALATION RT-Q4H PRN 09/28/17 [History] Rivaroxaban [Xarelto] 20 mg PO W/SUPPER 09/28/17 [History] Atorvastatin Calcium [Lipitor] 40 mg PO HS 07/11/23 [History] Calcium Carbonate/Vitamin D3 [Calcium 600-Vit D3 10 mcg (400 Iu)] 1 tab PO DAILY 07/11/23 [History] Co Q10 100 mg PO DAILY 07/11/23 [History] Fluticasone/Umeclidin/Vilanter [Trelegy Ellipta 100-62.5-25] 1 puff INHALATION RT-DAILY 07/11/23 [History] HYDROcodone/APAP 5-325MG [[place] 5-325] 1 tab PO Q6HR PRN 3 Days #12 tab 07/12/23 [Rx] Follow up Appointment(s)/Referral(s): Lj Menard DO [Primary Care Provider] - 1-2 days Blake Martel MD [STAFF PHYSICIAN] - 1 Week Activity/Diet/Wound Care/Special Instructions: No driving while taking [place] No lifting over 10 pounds Shower daily. No soaking or tub baths for 2 weeks Very light activity until you are reevaluated at your follow up appointment with your surgeon Discharge Disposition: HOME SELF-CARE
== END 2023-07-12 14:05 | disposition home or self-care (01) ==
LOC: EC 05:31 → 6NMEDSUR 07:57
PROVIDERS: ADMIT Surgery; ATTEND Surgery
DX: K80.12 Calculus of gallbladder with acute and chronic cholecystitis without obstruction (principal); E87.1 Hypo-osmolality and hyponatremia; J44.9 Chronic obstructive pulmonary disease, unspecified; I73.9 Peripheral vascular disease, unspecified; F17.200 Nicotine dependence, unspecified, uncomplicated; Z85.42 Personal history of malignant neoplasm of other parts of uterus; Z86.711 Personal history of pulmonary embolism; Z86.718 Personal history of other venous thrombosis and embolism; Z79.01 Long term (current) use of anticoagulants; Z79.899 Other long term (current) drug therapy
CPT/HCPCS: 96376 ×2; 96365; 96366 ×2; 96372; 96375; 99285; 36415; 93005; 88304; 80053; 82150; 83690; 84484; 85025; 81001; 87040; 74018; 76705; 47562; G0378 ×2; J2543 ×2; J2250; J0330; J1644; J2710; J2405; J2001; J1650; J3010; J3490; J2270; J1885 ×2; J2704

== ENCOUNTER → 2023-07-21 | Outpatient (CLI) | payer MEDICARE, OTHER ==
--- NOTE | 2023-07-21 12:21 | CT ---
EXAMINATION TYPE: CT abdomen w con DATE OF EXAM: 07/21/2023 COMPARISON: CT abdomen and runoff on 01/04/2023 HISTORY: Pain post cholecystectomy done last week CT DLP: 242.6 mGycm Automated exposure control for dose reduction was used. TECHNIQUE: Helical acquisition of images was performed from the lung bases through the top of iliac crest to include entire abdomen. CONTRAST: Performed with Oral Contrast and with IV Contrast, patient injected with 100 mL of Isovue 300. FINDINGS: There are marked emphysematous changes in the lung bases but no other significant abnormality. There is surgical absence of the gallbladder. There has been interval development of a 10 x 14 cm ill-defined mass of the left lobe of the liver hi ghly suspicious for neoplasm. There is no mass within the pancreas, spleen or adrenal glands. There is no solid renal mass or hydronephrosis. 4.3 cm infrarenal abdominal aortic aneurysm with extensive mural thrombus is again seen. There is no retroperitoneal adenopathy. The visualized bowel loops are normal without dilatation or obstruction There is a small amount of subcutaneous air in the right upper quadrant of the abdomen and a tiny lucila unt of free intraperitoneal air anterior to the liver is only postsurgical in nature. Could been vertebroplasty of one of the upper lumbar lower thoracic vertebral segments but no focal o sseous lesions are seen IMPRESSION: 1. 10 x 14 cm ill-defined mass in the left liver not present on the prior CTA of the abdomen with run off on 01/04/2023. Findings are highly suspicious for primary neoplasm of the liver. Further workup is warranted. 2. Small amount of subcutaneous cutaneous and free intraperitoneal air presumably postsurgical in [place] ure. 3. Stable infrarenal abdominal aortic aneurysm with extensive mural thrombus. 4. Marked emphysematous changes in the lung bases. 5. Vertebroplasty in one of the visualized vertebral segments but no focal osseous lesions.
== END | disposition home or self-care (01) ==
LOC: RADCTMAIN 10:44
PROVIDERS: ATTEND Family Medicine
DX: I71.43 Infrarenal abdominal aortic aneurysm, without rupture (principal); J43.9 Emphysema, unspecified; K76.9 Liver disease, unspecified; Z98.890 Other specified postprocedural states; Z90.49 Acquired absence of other specified parts of digestive tract
CPT/HCPCS: 74160; Q9967

== ENCOUNTER 2023-07-27 15:02 | Emergency (ER) | payer MEDICARE, OTHER ==
[2023-07-27 15:48] VITALS: TEMP 97.5
--- NOTE | 2023-07-27 15:50 | ED ---
Extremity Problem HPI - General Source: patient, RN notes reviewed Mode of arrival: EMS Limitations: no limitations <Danyelle Leslie - Last Filed: 07/27/23 15:49> - General Source: RN notes reviewed, old records reviewed Mode of arrival: EMS Limitations: no limitations - History of Present Illness MD Complaint: extremity pain, extremity swelling, cold extremity -: days(s) Location: left, lower extremity History of Same: Yes -: Yes myalgia, Yes arthralgia Radiation: proximal, distal Severity scale (1-10): 10 Quality: sharp Consistency: constant Improves with: nothing Worsens with: nothing Associated Symptoms: denies other symptoms <Lobito Banda - Last Filed: 08/09/23 20:24> - General Chief complaint: Extremity Problem,Nontraumatic Stated complaint: PAIN AND NUMBNESS LLE Time Seen by Provider: 07/27/23 15:49 - History of Present Illness Initial comments: Patient is a 73-year-old female presented to the ER with a chief complaint of left lower extremity numbness and pain. Patient is scheduled for femoral bypass on Monday. Patient states for the past day or 2 she has been having increasing numbness and pain in her left lower extremity. (Danyelle Leslie) This is a 73-year-old female to the ER for evaluation of severe left leg pain bilateral leg pain severe left leg swelling scheduled for bypass. Patient has severe pain for the past day or 2 and has been increasing. Pain is severe with no rest at home, patient states the pain is so bad she is unable to ambulate (Lobito Banda) - Related Data Home Medications Medication Instructions Recorded Confirmed Albuterol Inhaler [Ventolin Hfa 2 puff INHALATION RT-Q4H PRN 09/28/17 08/04/23 Inhaler] Atorvastatin Calcium [Lipitor] 40 mg PO HS 07/11/23 08/04/23 Calcium Carbonate/Vitamin D3 1 tab PO DAILY 07/11/23 08/04/23 [Calcium 600-Vit D3 10 mcg (400 Iu)] Co Q10 100 mg PO DAILY 07/11/23 08/04/23 Fluticasone/Umeclidin/Vilanter 1 puff INHALATION RT-DAILY 07/11/23 08/04/23 [Trelegy Ellipta 100-62.5-25] Previous Rx's Medication Instructions Recorded Rivaroxaban [Xarelto] 20 mg PO DAILY #30 tab 08/06/23 Allergies Allergy/AdvReac Type Severity Reaction Status Date / Time No Known Allergies Allergy Verified 08/09/23 14:17 Review of Systems ROS Other: All systems not noted in ROS Statement are negative. <Danyelle Leslie - Last Filed: 07/27/23 15:49> ROS Other: All systems not noted in ROS Statement are negative. <Lobito Banda - Last Filed: 08/09/23 20:24> ROS Statement: Those systems with pertinent positive or pertinent negative responses have been documented in the HPI. 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 History of Any Multi-Drug Resistant Organisms: None Reported Past Surgical History: Back Surgery, Hysterectomy, Orthopedic Surgery, Tonsillectomy Additional Past Surgical History / Comment(s): Ectopic with salpingectomy/ovary removed then hysterectomy d/t cancer and has part of one ovary left, kyphoplasty, R shoulder fracture with surgery/screws in place. Past Anesthesia/Blood Transfusion Reactions: No Reported Reaction Additional Past Anesthesia/Blood Transfusion Reaction / Comment(s): Pt believes she may have received blood years ago with ectopic . Past Psychological History: No Psychological Hx Reported Smoking Status: Current every day smoker Past Alcohol Use History: None Reported Past Drug Use History: None Reported - Past Family History Mother Family Medical History: Dementia, Hypertension Additional Family Medical History / Comment(s): ALZHEIMERS Father Family Medical History: Myocardial Infarction ([place]) Additional Family Medical History / Comment(s): AT AGE 59 FROM [place] Brother(s) Family Medical History: Myocardial Infarction ([place]) Additional Family Medical History / Comment(s): ALSO AT AGE 59 FROM [place] AND A 2ND BROTHER W/VASCULAR DISEASE. Sister(s) Family Medical History: Cancer Additional Family Medical History / Comment(s): LUNG CANCER(SMOKER) <Danyelle Leslie - Last Filed: 07/27/23 15:49> General Exam Limitations: no limitations <Danyelle Leslie - Last Filed: 07/27/23 15:49> General appearance: alert, in no apparent distress, anxious Head exam: Present: atraumatic, normocephalic, normal inspection Eye exam: Present: normal appearance, PERRL, EOMI. Absent: scleral icterus, conjunctival injection, periorbital swelling ENT exam: Present: normal exam, mucous membranes moist Neck exam: Present: normal inspection. Absent: tenderness, meningismus, lymphadenopathy Respiratory exam: Present: normal lung sounds bilaterally. Absent: respiratory distress, wheezes, rales, rhonchi, stridor Cardiovascular Exam: Present: regular rate, normal rhythm, normal heart sounds. Absent: systolic murmur, diastolic murmur, rubs, gallop, clicks GI/Abdominal exam: Present: soft, normal bowel sounds. Absent: distended, tenderness, guarding, rebound, rigid Extremities exam: Present: normal inspection, full ROM, normal capillary refill. Absent: tenderness, pedal edema, joint swelling, calf tenderness Back exam: Present: normal inspection Neurological exam: Present: alert, oriented X3, CN II-XII intact Psychiatric exam: Present: normal affect, normal mood Skin exam: Present: warm, dry, intact, normal color. Absent: rash <Lobito Banda - Last Filed: 08/09/23 20:24> - General Exam Comments Initial Comments: Visual Physical Exam Vital signs reviewed General: Well-appearing, nontoxic, no acute distress. Head: Normocephalic, atraumatic Eyes: PERRLA, EOMI ENT: Airway patent Chest: Nonlabored breathing Skin: No visual rash, normal skin tone Neuro: Alert and oriented 3 Musculoskeletal: No gross abnormalities (Danyelle Leslie) Course <Lobito Banda - Last Filed: 08/09/23 20:24> Vital Signs 07/27/23 07/27/23 15:17 19:31 Temperature 97.5 F L Pulse Rate 63 95 Respiratory 16 18 Rate Blood Pressure 104/61 112/70 O2 Sat by Pulse 98 98 Oximetry - Reevaluation(s) Reevaluation #1: 07/27/23 19:19 Medical records reviewed (Lobito Banda) Reevaluation #2: 07/27/23 19:19 Patient symptoms improved (Lobito Banda) Reevaluation #3: 07/27/23 19:19 Patient informed of results questions answered (Lobito Banda) Reevaluation #4: 07/27/23 19:19 Was pt. sent in by a medical professional or institution ([facility], [facility], urgent care, hospital, or fci...) When possible be specific @ -no Did you speak to anyone other than the patient for history (EMS, parent, family, police, friend...)? What history was obtained from this source @ -no Did you review nursing and triage notes (agree or disagree)? Why? @ -agree Are old charts reviewed (outside hosp., previous admission, EMS record, old EKG, old radiological studies, urgent care reports/EKG's, fci records)? Report findings @ -yes Differential Diagnosis (chest pain, altered mental status, abdominal pain women, abdominal pain men, vaginal bleeding, weakness, fever, dyspnea, syncope, headache, dizziness, GI bleed, back pain, seizure, CVA, palpatations, mental health, musculoskeletal)? @ -prior EKG interpreted by me (3pts min.). @ -yes X-rays interpreted by me (1pt min.). @ -no CT interpreted by me (1pt min.). @ -no U/S interpreted by me (1pt. min.). @ -Yes positive DVT chronic What testing was considered but not performed or refused? (CT, X-rays, U/S, labs)? Why? @ -none What meds were considered but not given or refused? Why? @ -none Did you discuss the management of the patient with other professionals (professionals i.e. [facility], [facility], lab, RT, psych nurse, social media strategist, maple products maker, teacher, home lending officer, disability case manager)? Give summary @ -no Was smoking cessation discussed for >3mins.? @ -no Was critical care preformed (if so, how long)? @ -no Were there social determinants of health that impacted care today? How? (Homeles sness, low income, unemployed, alcoholism, drug addiction, transportation, low edu. Level, literacy, decrease access to med. care, senior living, rehab)? @ -none Was there de-escalation of care discussed even if they declined (Discuss DNR or withdrawal of care, Hospice)? DNR status @ -no What co-morbidities impacted this encounter? (DM, HTN, Smoking, COPD, CAD, Cancer, CVA, ARF, Chemo, Hep., AIDS, mental health diagnosis, sleep apnea, morbid obesity)? @ -none Was patient admitted / discharged? Hospital course, mention meds given and route, prescriptions, significant lab abnormalities, going to OR and other pertinent info. @ - 73-year-old female presenting for leg pain. Patient does have findings of chronic DVT will continue pain control and outpatient medication for pain, anticoagulation patient will be discharged home, patient is scheduled for femoral surgery vascular surgery Discharge Undiagnosed new problem with uncertain prognosis? @ -no Drug Therapy requiring intensive monitoring for toxicity (Heparin, Nitro, Insulin, Cardizem)? @ -no Were any procedures done? @ -no Diagnosis/symptom? @ -Chronic DVT, leg pain Acute, or Chronic, or Acute on Chronic? @ -Acute Uncomplicated (without systemic symptoms) or Complicated (systemic symptoms)? @ -Complicated Side effects of treatment? @ -no Exacerbation, Progression, or Severe Exacerbation? @ -exacerbation Poses a threat to life or bodily function? How? (Chest pain, [place], [place], pneumonia, PE, COPD, DKA, ARF, appy, cholecystitis, CVA, Diverticulitis, Homicidal, Suicidal, threat to staff... and all critical care pts) @ -yes can lead to PE with vascular insufficiency (Lobito Banda) Medical Decision Making <Danyelle Leslie - Last Filed: 07/27/23 15:49> - Radiology Data Radiology results: report reviewed (Ultrasound positive for chronic DVT), image reviewed <Lobito Banda - Last Filed: 08/09/23 20:24> - Medical Decision Making I performed the quick note portion of the exam. Electronically signed by Danyelle Leslie PA-C (Danyelle Leslie) 73-year-old female presenting for leg pain. Patient does have findings of chronic DVT will continue pain control and outpatient medication for pain, anticoagulation patient will be discharged home, patient is scheduled for femoral surgery vascular surgery (Lobito Banda) Disposition <Danyelle Leslie - Last Filed: 07/27/23 15:49> Is patient prescribed a controlled substance at d/c from ED?: No Time of Disposition: 19:00 <Lobito Banda - Last Filed: 08/09/23 20:24> Clinical Impression: Deep vein thrombosis (DVT) of lower extremity, Left leg pain, Bilateral leg pain Disposition: HOME SELF-CARE Condition: Good Referrals: Lj Menard DO [Primary Care Provider] - 1-2 days
[2023-07-27] MEDS: HYDROmorphone 1 MG/ML 1 ML SYRINGE IM STA (17:01)
--- NOTE | 2023-07-27 18:43 | US ---
EXAMINATION TYPE: US venous doppler duplex LE BI DATE OF EXAM: 07/27/2023 4:41 PM COMPARISON: 03/17/17 CLINICAL INDICATION: Female, 73 years old with history of DVT; Hx of DVT in left leg. On blood thinne rs SIDE PERFORMED: Bilateral TECHNIQUE: The lower extremity deep venous system is examined utilizing real time linear array sonog sawyer with graded compression, doppler sonography and color-flow sonography. VESSELS IMAGED: Common Femoral Vein Deep Femoral Vein Greater Saphenous Vein * Femoral Vein Popliteal Vein Small Saphenous Vein * Proximal Calf Veins (* superficial vessels) Right Leg: No evidence for DVT. Grayscale, color doppler, spectral doppler imaging performed of the deep veins of the lower extremities. There is normal flow, compressibility, vascular waveforms. Left Leg: Echoes seen in the popliteal vein, but some blood flow is seen. Echoes seen in the prox GS V, but some blood flow is seen. IMPRESSION: Chronic appearing deep vein thrombosis within the left popliteal vein and left greater saphenous vein . No acute DVT bilaterally.
[2023-07-27 20:02] VITALS: BP 112/70; PULSE 95; RESP 18
== END 2023-07-27 19:31 | disposition home or self-care (01) ==
LOC: EC 15:02
DX: I82.532 Chronic embolism and thrombosis of left popliteal vein (principal); F17.200 Nicotine dependence, unspecified, uncomplicated; J44.9 Chronic obstructive pulmonary disease, unspecified; Z79.899 Other long term (current) drug therapy; Z79.51 Long term (current) use of inhaled steroids
CPT/HCPCS: 93970; 99284; 96372; J1170

== ENCOUNTER → 2023-08-03 | Outpatient (CLI) | payer MEDICARE, OTHER ==
[2023-08-03 14:43] LABS: INR 1.1 (<1.2); Partial Thromboplastin Time 24.4 sec (22.0-30.0); Prothrombin Time 11.8 sec (10.0-12.5)
== END | disposition home or self-care (01) ==
LOC: LABPAT 12:50
PROVIDERS: ATTEND Surgery
DX: Z01.812 Encounter for preprocedural laboratory examination (principal); I74.3 Embolism and thrombosis of arteries of the lower extremities; Z79.01 Long term (current) use of anticoagulants
CPT/HCPCS: 36415; 85610; 85730; 86850; 86900; 86901

== ENCOUNTER 2023-08-04 08:19 | Inpatient (IN) | payer MEDICARE, OTHER ==
[~2023-08-04 08:19] MED LIST changes: -ACETAMINOPHEN TAB 500 MG TAB PO ONE; -DEXAMETHASONE SOD PHOSPHATE 10 MG/ML 1 ML VIAL IV ONE; -MELOXICAM 7.5 MG TAB PO ONE; -MIDAZOLAM (PF) 2 MG/2 ML VIAL IV PRN; +MIDAZOLAM 2 MG/2 ML VIAL IV PRN; -ONDANSETRON 4 MG/2 ML VIAL IVP ONE; -TRANEXAMIC ACID 1,000 MG in SODIUM CHLORIDE 0.9% 50 ML IVPB ONE; -ceFAZolin IN SWFI 2 GM/20 ML SYRINGE IVP ONE
[2023-08-04] MEDS: LACTATED RINGERS 1,000 ML IV ONE ×3 (08:35)
[2023-08-04] MEDS: DEXAMETHASONE SOD PHOSPHATE 4 MG/ML 1 ML VIAL IV ONE (09:14)
[2023-08-04] MEDS: ONDANSETRON 4 MG/2 ML VIAL IVP ONE (09:14)
[2023-08-04] MEDS: MIDAZOLAM 2 MG/2 ML VIAL IVP ONE (09:30)
[2023-08-04] MEDS: fentaNYL (PF) 50 MCG/ML 2 ML AMP IVP ONE (09:30)
[2023-08-04] MEDS: droPERidol 5 MG/2 ML VIAL IVP ONE (10:03)
[2023-08-04] MEDS ORDERED: HEPARIN SODIUM,PORCINE 5,000 UNIT/ML 1 ML VIAL ONE (10:06)
[2023-08-04] MEDS ORDERED: NEOSTIGMINE 1 MG/ML 10 ML VIAL ONE (10:06)
[2023-08-04] MEDS ORDERED: PHENYLEPHRINE-0.9% NACL SYG 1,000 MCG/10 ML SYRINGE ONE (10:06)
[2023-08-04] MEDS ORDERED: PHENYLEPHRINE 10 MG/ML VIAL ONE (10:06)
[2023-08-04] MEDS ORDERED: HYDROmorphone (PF) 1 MG/ML ONE (10:06)
[2023-08-04] MEDS ORDERED: ePHEDrine 50 MG/ML 1 ML VIAL ONE (10:06)
[2023-08-04] MEDS ORDERED: PROPOFOL 10 MG/ML 20 ML VIAL IV ONE (10:06)
[2023-08-04] MEDS ORDERED: LIDOCAINE 1% INJ 10MG/ML (20 ML MDV) ONE (10:06)
[2023-08-04] MEDS ORDERED: GLYCOPYRROLATE 0.2 MG/ML 2 ML VIAL ONE (10:06)
[2023-08-04] MEDS ORDERED: ROCURONIUM 10 MG/ML (5 ML VIAL) IV ONE (10:06)
[2023-08-04] MEDS ORDERED: fentaNYL (PF) 50 MCG/ML 2 ML AMP ONE (10:06)
[2023-08-04] MEDS ORDERED: SUCCINYLCHOLINE CHLORIDE 200 MG/10 ML VIAL IV ONE (10:06)
--- NOTE | 2023-08-04 10:36 | P.ANPRN ---
Procedure Note - Anesthesia - Invasive Line Right Arterial Line Time Out Performed: Yes ([id number]) Date of Procedure: 08/04/23 Time of Procedure: 09:28 Location of Patient: PreOp Preparation: Sterile Prep, Sterile Dressing Arterial Line Location: Radial (right) Ultrasound Used: Yes Purpose - Visualization and Identification of Vasculature: Yes Needle Guage: 20g Image Stored and Saved: Yes Narrative: Central line placement per sterile protocol utilized.
[2023-08-04] MEDS: HEPARIN SODIUM,PORCINE 10,000 UNIT in SODIUM CHLORIDE 0.9% 1,000 ML IRRIGATION ONE (11:36)
[2023-08-04] MEDS: ceFAZolin 4 GM in SODIUM CHLORIDE 0.9% 1,000 ML IRRIGATION ONE (11:37)
--- NOTE | 2023-08-04 13:26 | P.OP ---
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 2: Ischemic rest pain secondary to femoral and popliteal arterial occlusive disease. Postoperative Diagnosis: Same plus left iliac artery occlusion. Procedure(s) Performed: 1: Femoral to femoral bypass utilizing cryopreserved great saphenous vein. 2: Left common femoral thromboendarterectomy. Anesthesia: JOVANA Surgeon: Ji Portillo Shoe Puller #1: Kirstin Benjamin Estimated Blood Loss (ml): 50 Pathology: none sent Condition: stable Disposition: floor Indications for Procedure: Patient is a 73-year-old female who had presented with severe lifestyle limiting claudication. Physical examination had revealed femoral pulse to be intact with a popliteal, DP and PT pulses were absent on the left. Surgical intervention was recommended however the patient wished to delay surgery until approximately this date. In the interim she began to experience ischemic rest pain. The symptoms began last week. Plan was for femoral to distal popliteal bypass utilizing CryoVein as the patient had no adequate southern ute vein for bypass purposes. Description of Procedure: Patient brought to the operating room placed in the supine position and administered general endotracheal anesthesia delivered by the department of anesthesiology. The patient received intravenously administered antibiotics in the perioperative phase and prophylactic manner. The left lower extremity, pelvis and right anterior thigh areas were sterilely prepped and draped in usual manner. Benjamin catheter had been placed to gravity drainage. Skin incision was made over the left femoral artery carried down through the subcutaneous tissues. Hemostasis was achieved using electrocautery. Lymphatic layer was divided laterally and swept medially. Great saphenous vein/common fem oral vein was identified. This was partially calcified. The common femoral artery was identified and dissected free of investing tissues. Only a weak pulse was now present in the common femoral artery and was not felt that this would be adequate for inflow purposes. The patient did however have a excellent right femoral pulse and the procedure was changed to a femoral to femoral bypass. As such a skin incision was made over the right common femoral artery and carried down through subcutaneous tissues. Lymphatic layer was divided laterally and swept medially exposing the femoral artery. Excellent pulse and the artery was identified. The origin of the superficial femoral, profundus femoris and common femoral arterial segments were encircled with vessel loops. A curvilinear subcutaneous tunnel was created between the 2 incisions through which a previously prepared CryoVein was tunneled with proper orientation maintained. The patient was systemically heparinized. ACT was drawn and followed throughout the case. After adequate circulation time the Vesseloops surrounding the common femoral artery, profundus femoris and superficial femoral artery on the right were drawn closed and arteriotomy was made in the common femoral artery extended with Amezquita scissors. Limited endarterectomy was performed in this area. The vein graft was spatulated match arteriotomy and an end to side anastomosis was created between the artery and the vein graft. Just prior to completion of the anastomotic line the artery was flushed and no thrombus was retrieved. Flow was restored through the artery and into the bypass conduit. Excellent pulsatile flow was noted within the bypass conduit and good flow was also noted within the profundus and superficial femoral arteries on the right. Vesseloops surrounding the left common femoral artery were drawn closed at the profundus and superficial femoral levels. It was necessary to perform partial transection of the left inguinal ligament and the external iliac artery was palpated. Once again a very poor pulse at this level was noted. It was then clamped and the Vesseloops surrounding the profundus and superficial femoral arteries were drawn closed. Arteriotomy was made longitudinally within the artery and carried both proximally and distally utilizing Amezquita Hess scissors. Extremely calcified and bulky plaque was encountered. To improve the flow through the profundus was felt necessary to perform a femoral endarterectomy. As such thromboendarterectomy was performed as proximally as possible down to the bifurcation of the profundus and superficial femoral arteries. Once this was performed excellent backbleeding through the profundus was identified. The luminal surface was inspected for any loose or free-floating material and where identified was removed. The vein graft was cut to the appropriate length and spatulated match arteriotomy and end-to-side anastomosis between the vein graft and the artery was performed utilizing 6-0 Prolene suture placed in running fashion. Just prior to completion the anastomotic line the artery was backbled and the vein graft was flushed and no thrombus was retrieved. The anastomotic line was completed and flow restored through the vein graft into the left femoral system. Both wounds were inspected for hemostasis. This was judged to be adequate. Both wounds were irrigated with antibiotic-containing solution. Deep tissues were closed in multiple layers with Vicryl suture. The left inguinal ligament was also closed with 2-0 Vicryl suture. Dermis was reapproximated utilizing 4-0 Monocryl in a running intradermal fashion. Appropriate dressings were applied. At the completion of the procedure the left foot had normal capillary refill. Patient tolerated the procedure well was taken to the recovery area satisfactory and stable condition.
[2023-08-04] MEDS: LACTATED RINGERS 1,000 ML IV SCH (15:39)
[2023-08-04] MEDS: HYDROcodone/APAP 5-325MG 1 EACH TAB PO PRN (20:32)
[2023-08-04] MEDS: ATORVASTATIN 40 MG TAB PO SCH (20:32)
[2023-08-05] MEDS ORDERED: ALBUTEROL NEBULIZED 2.5 MG/3 ML INHALATION PRN (09:10)
--- NOTE | 2023-08-05 09:33 | P.PN ---
Subjective Progress Note Date: 08/05/23 Principal diagnosis: Status post femoral to femoral bypass. Patient is postop day #1. She indicates that her left foot numbness and pain have essentially resolved. She is complaining of some GERD type symptoms. Objective - Vital Signs Vital signs: Vital Signs Temp 97.4 F L 08/05/23 04:00 Pulse 54 L 08/05/23 08:20 Resp 16 08/05/23 08:20 BP 87/50 08/05/23 08:20 Pulse Ox 98 08/05/23 08:20 FiO2 Intake & Output 08/04/23 08/05/23 08/05/23 18:59 06:59 18:59 Intake Total 1352 Output Total 50 Balance 1302 Weight 60 kg Intake: IV 1352 Output: Estimated Blood Loss 50 Other: Voiding Method Toilet # Voids 2 - Exam Patient is ambulatory without foot pain. Bony complaint is that of some d iscomfort at the groin area, consistent with postoperative status. Will remove Tegaderm and replaced with dry dressing as I believe some of the discomfort is due to the pulling of the skin secondary to the Tegaderm. Assessment and Plan Assessment: 1: Postop day #1, status post femoral to femoral bypass. 2: GERD type symptoms. Plan: 1: Will remove Tegaderm and replace with dry dressings to help decrease any pulling of the skin and hopefully decrease her incisional area pain. 2: Add proton pump inhibitor 3: Encourage ambulation. 4: Would anticipate the patient would be able to be discharged tomorrow. Time with Patient: Less than 30
[2023-08-05] MEDS: SYMBICORT 80-4.5 MCG INHALER INHALATION SCH (09:36)
[2023-08-05] MEDS: PANTOPRAZOLE 40 MG TABLET PO STA (09:46)
[2023-08-05] MEDS: IPRATROPIUM 0.5 MG/2.5 ML NEBU INHALATION SCH (11:14)
[2023-08-05 12:09] LABS: Basophils % (A) 0 %; Eosinophils % (A) 0 %; HCT 26.8 % (34.0-46.0); Hypochromasia Marked; Lymphocytes # (A) 0.7 k/uL (1.0-4.8); Lymphocytes % (A) 9 %; MCH 27.6 pg (25.0-35.0); MCHC 30.7 g/dL (31.0-37.0); MCV 89.9 fL (80.0-100.0); Mean Platelet Volume 8.6; Monocytes # (A) 0.4 k/uL (0-1.0); Monocytes % (A) 5 %; Neutrophils # (A) 6.6 k/uL (1.3-7.7); Neutrophils % (A) 84 %; Platelet Count 284 k/uL (150-450); RBC 2.98 m/uL (3.80-5.40); RDW 14.6 % (11.5-15.5); WBC 7.9 k/uL (3.8-10.6)
[2023-08-05 12:21] LABS: HGB 8.2 gm/dL (11.4-16.0)
[2023-08-05 12:23] LABS: ALT 25 U/L (4-34); AST 40 U/L (14-36); African American GFR (CKD) >90 (>60 ml/min/1.73 sqM); Albumin 2.2 g/dL (3.5-5.0); Alkaline Phosphatase 259 U/L (38-126); Anion Gap 1 mmol/L; Blood Urea Nitrogen 17 mg/dL (7-17); Calcium 8.2 mg/dL (8.4-10.2); Carbon Dioxide 31 mmol/L (22-30); Chloride 101 mmol/L (98-107); Glucose 88 mg/dL (74-99); Non-African American GFR(CKD) 82 (>60 ml/min/1.73 sqM); Potassium 3.2 mmol/L (3.5-5.1); Sodium 133 mmol/L (137-145); Total Bilirubin 0.6 mg/dL (0.2-1.3); Total Protein 4.8 g/dL (6.3-8.2)
--- NOTE | 2023-08-05 13:02 | P.CONS ---
History of Present Illness - Reason for Consult Consult date: 08/05/23 Medical management - History of Present Illness History of present illness; patient is a 73-year-old lady with past medical significant for COPD, tobacco addiction, peripheral artery disease who presented to the hospital for elective femoral-femoral bypass and Left common femoral thromboendarterectomy with vascular surgery. Patient has been following up outpatient with vascular surgery for severe lower extremity claudication. Patient continued to have severe resting ischemic pains affecting both extremities. Surgical intervention was recommended however the patient wished to delay surgery until recently when she was seen in outpatient settings at which time surgery was recommended and patient presented to hospital. Postoperatively the internal medicine team were consulted for medical management REVIEW OF SYSTEMS: CONSTITUTIONAL: No fever, no malaise, no fatigue. HEENT: No recent visual problems or hearing problems. Denied any sore throat. CARDIOVASCULAR: No chest pain, orthopnea, PND, no palpitations, no syncope. PULMONARY: No shortness of breath, no cough, no hemoptysis. GASTROINTESTINAL: No diarrhea, no nausea, no vomiting, no abdominal pain. NEUROLOGICAL: No headaches, no weakness, no numbness. HEMATOLOGICAL: Denies any bleeding or petechiae. GENITOURINARY: Denies any burning micturition, frequency, or urgency. MUSCULOSKELETAL/RHEUMATOLOGICAL: Denies any joint pain, swelling, or any muscle pain. ENDOCRINE: Denies any polyuria or polydipsia. The rest of the 14-point review of systems is negative. PHYSICAL EXAMINATION: GENERAL: The patient is alert and oriented x3, not in any acute distress. Well developed, well nourished. HEENT: Pupils are round and equally reacting to light. EOMI. No scleral icterus. No conjunctival pallor. Normocephalic, atraumatic. No pharyngeal erythema. No thyromegaly. CARDIOVASCULAR: S1 and S2 present. No murmurs, rubs, or gallops. PULMONARY: Chest is clear to auscultation, no wheezing or crackles. ABDOMEN: Soft, nontender, nondistended, normoactive bowel sounds. No palpable organomegaly. MUSCULOSKELETAL: No joint swelling or deformity. EXTREMITIES: No cyanosis, clubbing, or pedal edema. NEUROLOGICAL: Gross neurological examination did not reveal any focal deficits. SKIN: No rashes. 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 Ischemic rest pain secondary to femoral and popliteal arterial occlusive disease. COPD Tobacco addiction Monitor vital signs Monitor CBC Monitor CMP Continue telemetry monitoring S/p Femoral to femoral bypass utilizing cryopreserved great saphenous vein and Left common femoral thromboendarterectomy. Continue postop care per vascular surgery Hold Xarelto until surgery clears to be resumed. Continue Lipitor Continue breathing treatments Resume home med Labs and medication were reviewed.. Continue same treatment. Continue with symptomatic treatment. Resume home medication. Monitor labs and vitals. DVT and GI prophylaxis. Further recommendations as per clinical course of the patient Dictation was produced using [employer] dictation software. please excuse any grammatical, word or spelling errors. 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 History of Any Multi-Drug Resistant Organisms: None Reported Past Surgical History: Back Surgery, Hysterectomy, Orthopedic Surgery, Tonsillectomy Additional Past Surgical History / Comment(s): Ectopic with salpingectomy/ovary removed then hysterectomy d/t cancer and has part of one ovary left, kyphoplasty, R shoulder fracture with surgery/screws in place. Past Anesthesia/Blood Transfusion Reactions: No Reported Reaction Additional Past Anesthesia/Blood Transfusion Reaction / Comm: Pt believes she may have received blood years ago with ectopic . Additional Past Alcohol Use History / Comment(s): Pt started smoking in 1965 and was a 2 ppd smoker. Last September 2016 she started cutting back and is now down to 1-4 cigarettes a day. - Past Family History Mother Family Medical History: Dementia, Hypertension Additional Family Medical History / Comment(s): ALZHEIMERS Father Family Medical History: Myocardial Infarction (AL) Additional Family Medical History / Comment(s): AT AGE 59 FROM [place] Brother(s) Family Medical History: Myocardial Infarction (AL) Additional Family Medical History / Comment(s): ALSO AT AGE 59 FROM [place] AND A 2ND BROTHER W/VASCULAR DISEASE. Sister(s) Family Medical History: Cancer Additional Family Medical History / Comment(s): LUNG CANCER(SMOKER) Medications and Allergies Home Medications Medication Instructions Recorded Confirmed Type Albuterol Inhaler [Ventolin Hfa 2 puff INHALATION RT-Q4H PRN 09/28/17 08/04/23 History Inhaler] Rivaroxaban [Xarelto] 20 mg PO W/SUPPER 09/28/17 08/04/23 History Atorvastatin Calcium [Lipitor] 40 mg PO HS 07/11/23 08/04/23 History Calcium Carbonate/Vitamin D3 1 tab PO DAILY 07/11/23 08/04/23 History [Calcium 600-Vit D3 10 mcg (400 Iu)] Co Q10 100 mg PO DAILY 07/11/23 08/04/23 History Fluticasone/Umeclidin/Vilanter 1 puff INHALATION RT-DAILY 07/11/23 08/04/23 History [Trelesafia Ellipta 100-62.5-25] Allergies Allergy/AdvReac Type Severity Reaction Status Date / Time No Known Allergies Allergy Verified 08/04/23 08:40 Physical Exam Vitals: Vital Signs Temp Pulse Resp BP BP Pulse Ox 08/05/23 08:20 54 L 16 87/50 98 08/05/23 04:00 97.4 F L 56 L 16 103/63 98 08/05/23 02:00 56 L 16 08/05/23 00:00 97.9 F 56 L 16 99/59 92 L 08/04/23 21:50 102/59 08/04/23 20:09 97.9 F 70 18 100/62 96 08/04/23 20:05 70 18 08/04/23 18:08 97.9 F 64 18 92/58 98 08/04/23 15:27 97.9 F 60 18 114/68 95 08/04/23 14:39 53 L 14 122/62 94 L 08/04/23 14:09 54 L 20 122/66 146/60 95 08/04/23 13:54 52 L 16 144/60 100 08/04/23 13:39 52 L 15 122/64 138/58 100 08/04/23 13:24 56 L 14 139/61 100 08/04/23 13:09 97.2 F L 58 L 14 100 08/04/23 09:50 59 L 17 122/56 99 Intake and Output 08/04/23 08/05/23 08/05/23 22:59 06:59 14:59 Other: Voiding Method Toilet Toilet # Voids 2 Results CBC & Chem 7: 08/05/23 11:34 08/05/23 11:34
[2023-08-05] MEDS: POTASSIUM CHLORIDE ER 20 MEQ TAB.ER PO STA (20:48)
[2023-08-05 21:12] VITALS: RESP 16
[2023-08-06] MEDS: CALCIUM CARB-VIT D 500 MG-5 MCG TAB PO SCH (08:18)
[2023-08-06 08:26] VITALS: BP 112/67; TEMP 98.3
[2023-08-06 08:55] VITALS: PULSE 64
[2023-08-06] MEDS ORDERED: CO Q10 100 MG PO SCH (09:00)
--- NOTE | 2023-08-06 11:07 | P.DS ---
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 Ischemic rest pain secondary to femoral and popliteal arterial occlusive disease. COPD Tobacco addiction Hospital course; patient is a 73-year-old lady with past medical significant for COPD, tobacco addiction, peripheral artery disease who presented to the hospital for elective femoral-femoral bypass and Left common femoral thromboendarterectomy with vascular surgery. Patient has been following up outpatient with vascular surgery for severe lower extremity claudication. Patient continued to have severe resting ischemic pains affecting both extremities. Surgical intervention was recommended however the patient wished to delay surgery until recently when she was seen in outpatient settings at which time surgery was recommended and patient presented to hospital. Postoperatively the internal medicine team were consulted for medical management. 08/06. Patient seen and examined. Was requested by vascular surgery to discharge the patient, med rec done. Xarelto to be resumed as patient takes it for history of PE PHYSICAL EXAMINATION: GENERAL: The patient is alert and oriented x3, not in any acute distress. Well developed, well nourished. HEENT: Pupils are round and equally reacting to light. EOMI. No scleral icterus. No conjunctival pallor. Normocephalic, atraumatic. No pharyngeal erythema. No thyromegaly. CARDIOVASCULAR: S1 and S2 present. No murmurs, rubs, or gallops. PULMONARY: Chest is clear to auscultation, no wheezing or crackles. ABDOMEN: Soft, nontender, nondistended, normoactive bowel sounds. No palpable organomegaly. MUSCULOSKELETAL: No joint swelling or deformity. EXTREMITIES: No cyanosis, clubbing, or pedal edema. NEUROLOGICAL: Gross neurological examination did not reveal any focal deficits. SKIN: No rashes. Dictation was produced using [employer] dictation software. please excuse any grammatical, word or spelling errors. Patient Condition at Discharge: Good Plan - Discharge Summary Discharge Rx Participant: Yes New Discharge Prescriptions: New Rivaroxaban [Xarelto] 20 mg PO DAILY #30 tab Continue Albuterol Inhaler [Ventolin Hfa Inhaler] 2 puff INHALATION RT-Q4H PRN PRN Reason: Shortness Of Breath Atorvastatin Calcium [Lipitor] 40 mg PO HS Calcium Carbonate/Vitamin D3 [Calcium 600-Vit D3 10 mcg (400 Iu)] 1 tab PO DAILY Fluticasone/Umeclidin/Vilanter [Trelegy Ellipta 100-62.5-25] 1 puff INHALATION RT-DAILY Co Q10 100 mg PO DAILY Discontinued Rivaroxaban [Xarelto] 20 mg PO W/SUPPER Discharge Medication List Albuterol Inhaler [Ventolin Hfa Inhaler] 2 puff INHALATION RT-Q4H PRN 09/28/17 [History] Atorvastatin Calcium [Lipitor] 40 mg PO HS 07/11/23 [History] Calcium Carbonate/Vitamin D3 [Calcium 600-Vit D3 10 mcg (400 Iu)] 1 tab PO DAILY 07/11/23 [History] Co Q10 100 mg PO DAILY 07/11/23 [History] Fluticasone/Umeclidin/Vilanter [Trelegy Ellipta 100-62.5-25] 1 puff INHALATION RT-DAILY 07/11/23 [History] Rivaroxaban [Xarelto] 20 mg PO DAILY #30 tab 08/06/23 [Rx] Follow up Appointment(s)/Referral(s): Ji Portillo DO [Doctor of Osteopathic Medicine] - 1 Week (Office is closed. Please call Monday to schedule follow up appointment) Lj Menard DO [Primary Care Provider] - 1 Week (Office is closed. Please call Monday to schedule follow up appointment) Patient Instructions/Handouts: Femoropopliteal Bypass (GEN) Discharge Disposition: HOME SELF-CARE
== END 2023-08-06 11:59 | disposition home or self-care (01) | DRG 253 ==
LOC: 2ORMAIN 08:19 → 3SCARD 14:36
PROVIDERS: ADMIT Surgery; ATTEND Surgery
PROC: 041L0KJ Bypass Left Femoral Artery to Left Femoral Artery with Nonautologous Tissue Substitute, Open Approach (ICD-10-PCS; principal; 2023-08-04 10:00)
DX: I70.222 Atherosclerosis of native arteries of extremities with rest pain, left leg (principal); I74.5 Embolism and thrombosis of iliac artery; I71.43 Infrarenal abdominal aortic aneurysm, without rupture; E78.5 Hyperlipidemia, unspecified; J44.9 Chronic obstructive pulmonary disease, unspecified; Z85.42 Personal history of malignant neoplasm of other parts of uterus; Z90.710 Acquired absence of both cervix and uterus; Z79.01 Long term (current) use of anticoagulants; Z79.899 Other long term (current) drug therapy; Z86.711 Personal history of pulmonary embolism; Z86.718 Personal history of other venous thrombosis and embolism; Z87.891 Personal history of nicotine dependence
CPT/HCPCS: 80053; 85025; 94640

== ENCOUNTER 2023-08-09 14:02 | Emergency (ER) | payer MEDICARE, OTHER ==
[2023-08-09 14:18] VITALS: RESP 18; TEMP 97.7
[2023-08-09] MEDS: HYDROmorphone 1 MG/ML 1 ML SYRINGE IVP STA (15:52)
[2023-08-09] MEDS: SODIUM CHLORIDE 0.9% 1,000 ML IV SCH (15:53)
[2023-08-09 16:11] LABS: Basophils % (A) 0 %; Eosinophils % (A) 0 %; HCT 28.6 % (34.0-46.0); Hypochromasia Slight; Lymphocytes # (A) 0.7 k/uL (1.0-4.8); Lymphocytes % (A) 7 %; MCH 27.6 pg (25.0-35.0); MCHC 31.4 g/dL (31.0-37.0); MCV 87.8 fL (80.0-100.0); Monocytes # (A) 0.3 k/uL (0-1.0); Monocytes % (A) 3 %; Neutrophils # (A) 8.7 k/uL (1.3-7.7); Neutrophils % (A) 89 %; Platelet Count 405 k/uL (150-450); RBC 3.26 m/uL (3.80-5.40); RDW 15.4 % (11.5-15.5); WBC 9.8 k/uL (3.8-10.6)
[2023-08-09 16:20] LABS: INR 1.3 (<1.2); Partial Thromboplastin Time 30.1 sec (22.0-30.0); Prothrombin Time 13.3 sec (10.0-12.5)
--- NOTE | 2023-08-09 16:23 | ED ---
Recheck HPI - General Chief Complaint: Extremity Injury, Lower Stated Complaint: low BP Time Seen by Provider: 08/09/23 15:14 Source: patient, RN notes reviewed, old records reviewed Mode of arrival: wheelchair Limitations: no limitations - History of Present Illness Initial Comments: This is a 73-year-old female to the ER today. This patient presents today for evaluation regards to leg pain acute on chronic leg pain leg pain despite recent vascular surgical bypass. Patient is having significant and persistent pain and swelling here in the ER but patient is in no acute distress has no shortness of breath and pain is not dissimilar from patient's similar pain MD Complaint: medication refill request, other -: days(s) Returns Today for: persistent/worsening pain related to initial visit Symptoms Since Prior Visit: worsening pain Associated Symptoms: none Treatments Prior to Arrival: Given Pain Meds on - Related Data Home Medications Medication Instructions Recorded Confirmed Albuterol Inhaler [Ventolin Hfa 2 puff INHALATION RT-Q4H PRN 09/28/17 08/04/23 Inhaler] Atorvastatin Calcium [Lipitor] 40 mg PO HS 07/11/23 08/04/23 Calcium Carbonate/Vitamin D3 1 tab PO DAILY 07/11/23 08/04/23 [Calcium 600-Vit D3 10 mcg (400 Iu)] Co Q10 100 mg PO DAILY 07/11/23 08/04/23 Fluticasone/Umeclidin/Vilanter 1 puff INHALATION RT-DAILY 07/11/23 08/04/23 [Trelegy Ellipta 100-62.5-25] Previous Rx's Medication Instructions Recorded Rivaroxaban [Xarelto] 20 mg PO DAILY #30 tab 08/06/23 Allergies Allergy/AdvReac Type Severity Reaction Status Date / Time No Known Allergies Allergy Verified 08/09/23 14:17 Review of Systems ROS Statement: Those systems with pertinent positive or pertinent negative responses have been documented in the HPI. ROS Other: All systems not noted in ROS Statement are negative. 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 History of Any Multi-Drug Resistant Organisms: None Reported Past Surgical History: Back Surgery, Hysterectomy, Orthopedic Surgery, Tonsi llectomy Additional Past Surgical History / Comment(s): Ectopic with salpingectomy/ovary removed then hysterectomy d/t cancer and has part of one ovary left, kyphoplasty, R shoulder fracture with surgery/screws in place. Past Anesthesia/Blood Transfusion Reactions: No Reported Reaction Additional Past Anesthesia/Blood Transfusion Reaction / Comment(s): Pt believes she may have received blood years ago with ectopic . Past Psychological History: No Psychological Hx Reported Smoking Status: Current every day smoker Past Alcohol Use History: None Reported Past Drug Use History: None Reported - Past Family History Mother Family Medical History: Dementia, Hypertension Additional Family Medical History / Comment(s): ALZHEIMERS Father Family Medical History: Myocardial Infarction ([place]) Additional Family Medical History / Comment(s): AT AGE 59 FROM [place] Brother(s) Family Medical History: Myocardial Infarction ([place]) Additional Family Medical History / Comment(s): ALSO AT AGE 59 FROM [place] AND A 2ND BROTHER W/VASCULAR DISEASE. Sister(s) Family Medical History: Cancer Additional Family Medical History / Comment(s): LUNG CANCER(SMOKER) General Exam Limitations: no limitations General appearance: alert, in no apparent distress Head exam: Present: atraumatic, normocephalic, normal inspection Eye exam: Present: normal appearance, PERRL, EOMI. Absent: scleral icterus, conjunctival injection, periorbital swelling ENT exam: Present: normal exam, mucous membranes moist Neck exam: Present: normal inspection. Absent: tenderness, meningismus, lymphadenopathy Respiratory exam: Present: normal lung sounds bilaterally. Absent: respiratory distress, wheezes, rales, rhonchi, stridor Cardiovascular Exam: Present: regular rate, normal rhythm, normal heart sounds. Absent: systolic murmur, diastolic murmur, rubs, gallop, clicks GI/Abdominal exam: Present: soft, normal bowel sounds. Absent: distended, tenderness, guarding, rebound, rigid Extremities exam: Present: normal inspection, full ROM, normal capillary refill. Absent: tenderness, pedal edema, joint swelling, calf tenderness Back exam: Present: normal inspection Neurological exam: Present: alert, oriented X3, CN II-XII intact Psychiatric exam: Present: normal affect, normal mood Skin exam: Present: warm, dry, intact, normal color. Absent: rash Course Vital Signs 08/09/23 08/09/23 14:11 18:05 Temperature 97.7 F Pulse Rate 83 77 Respiratory 18 18 Rate Blood Pressure 103/69 119/77 O2 Sat by Pulse 95 Oximetry - Reevaluation(s) Reevaluation #1: Medical records reviewed Reevaluation #2: Patient symptoms unchanged Reevaluation #3: Patient informed of results and questions answered Reevaluation #4: Was pt. sent in by a medical professional or institution (, [facility], PROGRAM SCHEDULER, urgent care, hospital, or jail...) When possible be specific @ -no Did you speak to anyone other than the patient for history (EMS, parent, family, police, friend...)? What history was obtained from this source @ -no Did you review nursing and triage notes (agree or disagree)? Why? @ -agree Are old charts reviewed (outside hosp., previous admission, EMS record, old EKG, old radiological studies, urgent care reports/EKG's, jail records)? Report findings @ -yes Differential Diagnosis (chest pain, altered mental status, abdominal pain women, abdominal pain men, vaginal bleeding, weakness, fever, dyspnea, syncope, headache, dizziness, GI bleed, back pain, seizure, CVA, palpatations, mental health, musculoskeletal)? @ -prior EKG interpreted by me (3pts min.). @ -yes X-rays interpreted by me (1pt min.). @ -no CT interpreted by me (1pt min.). @ -no U/S interpreted by me (1pt. min.). @ -no What testing was considered but not performed or refused? (CT, X-rays, U/S, labs)? Why? @ -none What meds were considered but not given or refused? Why? @ -none Did you discuss the management of the patient with other professionals (professionals i.e. [facility] Edmond, PROGRAM SCHEDULER, lab, RT, psych nurse, social science teacher, dye range operator, teacher, human resource officer, case therapist)? Give summary @ -no Was smoking cessation discussed for >3mins.? @ -no Was critical care preformed (if so, how long)? @ -no Were there social determinants of health that impacted care today? How? (Homelessness, low income, unemployed, alcoholism, drug addiction, transportation, low edu. Level, literacy, decrease access to med. care, alf, rehab)? @ -none Was there de-escalation of care discussed even if they declined (Discuss DNR or withdrawal of care, Hospice)? DNR status @ -no What co-morbidities impacted this encounter? (DM, HTN, Smoking, COPD, CAD, Cancer, CVA, ARF, Chemo, Hep., AIDS, mental health diagnosis, sleep apnea, morbid obesity)? @ -none Was patient admitted / discharged? Hospital course, mention meds given and route, prescriptions, significant lab abnormalities, going to OR and other pertinent info. @ - 73 female with bilateral leg edema also with recent evaluation of surgery. Patient's edema and pain is improving here in the ER, I did speak with patient's vascular surgery who will see with the patient in the office on Monday Discharge Undiagnosed new problem with uncertain prognosis? @ -no Drug Therapy requiring intensive monitoring for toxicity (Heparin, Nitro, Insulin, Cardizem)? @ -no Were any procedures done? @ -no Diagnosis/symptom? @ -Leg pain chronic pain postoperative pain Acute, or Chronic, or Acute on Chronic? @ -Acute Uncomplicated (without systemic symptoms) or Complicated (systemic symptoms)? @ -Complicated Side effects of treatment? @ -no Exacerbation, Progression, or Severe Exacerbation? @ -exacerbation Poses a threat to life or bodily function? How? (Chest pain, [place], [place], pneumonia, PE, COPD, DKA, ARF, appy, cholecystitis, CVA, Diverticulitis, Homicidal, Suicidal, threat to staff... and all critical care pts) @ -yes with recent surgery Medical Decision Making - Medical Decision Making 73 female with bilateral leg edema also with recent evaluation of surgery. Patient's edema and pain is improving here in the ER, I did speak with patient's vascular surgery who will see with the patient in the office on Monday - Lab Data Result diagrams: 08/09/23 15:43 08/09/23 15:43 Lab Results 08/09/23 08/09/23 08/09/23 Range/Units 15:43 15:43 15:43 WBC 9.8 (3.8-10.6) k/uL RBC 3.26 L (3.80-5.40) m/uL Hgb 9.0 L (11.4-16.0) gm/dL Hct 28.6 L (34.0-46.0) % MCV 87.8 (80.0-100.0) fL MCH 27.6 (25.0-35.0) pg MCHC 31.4 (31.0-37.0) g/dL RDW 15.4 (11.5-15.5) % Plt Count 405 (150-450) k/uL MPV 8.0 Neutrophils % 89 % Lymphocytes % 7 % Monocytes % 3 % Eosinophils % 0 % Basophils % 0 % Neutrophils # 8.7 H (1.3-7.7) k/uL Lymphocytes # 0.7 L (1.0-4.8) k/uL Monocytes # 0.3 (0-1.0) k/uL Eosinophils # 0.0 (0-0.7) k/uL Basophils # 0.0 (0-0.2) k/uL Hypochromasia Slight PT 13.3 H (10.0-12.5) sec INR 1.3 H (<1.2) APTT 30.1 H (22.0-30.0) sec Sodium 133 L (137-145) mmol/L Potassium 4.4 (3.5-5.1) mmol/L Chloride 100 (98-107) mmol/L Carbon Dioxide 29 (22-30) mmol/L Anion Gap 4 mmol/L BUN 22 H (7-17) mg/dL Creatinine 0.80 (0.52-1.04) mg/dL Est GFR (CKD-EPI)AfAm 86 (>60 ml/min/1.73 sqM) Est GFR (CKD-EPI)NonAf 75 (>60 ml/min/1.73 sqM) Glucose 107 H (74-99) mg/dL Lactic Ac Sepsis Rflx Plasma Lactic Acid Albino (0.7-2.0) mmol/L Calcium 8.8 (8.4-10.2) mg/dL Phosphorus 4.3 (2.5-4.5) mg/dL Magnesium 2.2 (1.6-2.3) mg/dL Total Bilirubin 1.7 H (0.2-1.3) mg/dL AST 110 H (14-36) U/L ALT 54 H (4-34) U/L Alkaline Phosphatase 349 H (38-126) U/L Troponin I (0.000-0.034) ng/mL NT-Pro-B Natriuret Pep 552 pg/mL Total Protein 5.4 L (6.3-8.2) g/dL Albumin 2.5 L (3.5-5.0) g/dL 08/09/23 08/09/23 08/09/23 Range/Units 15:43 15:43 16:32 WBC (3.8-10.6) k/uL RBC (3.80-5.40) m/uL Hgb (11.4-16.0) gm/dL Hct (34.0-46.0) % MCV (80.0-100.0) fL MCH (25.0-35.0) pg MCHC (31.0-37.0) g/dL RDW (11.5-15.5) % Plt Count (150-450) k/uL MPV Neutrophils % % Lymphocytes % % Monocytes % % Eosinophils % % Basophils % % Neutrophils # (1.3-7.7) k/uL Lymphocytes # (1.0-4.8) k/uL Monocytes # (0-1.0) k/uL Eosinophils # (0-0.7) k/uL Basophils # (0-0.2) k/uL Hypochromasia PT (10.0-12.5) sec INR (<1.2) APTT (22.0-30.0) sec Sodium (137-145) mmol/L Potassium (3.5-5.1) mmol/L Chloride (98-107) mmol/L Carbon Dioxide (22-30) mmol/L Anion Gap mmol/L BUN (7-17) mg/dL Creatinine (0.52-1.04) mg/dL Est GFR (CKD-EPI)AfAm (>60 ml/min/1.73 sqM) Est GFR (CKD-EPI)NonAf (>60 ml/min/1.73 sqM) Glucose (74-99) mg/dL Lactic Ac Sepsis Rflx Y Plasma Lactic Acid Albino 2.2 H* (0.7-2.0) mmol/L Calcium (8.4-10.2) mg/dL Phosphorus (2.5-4.5) mg/dL Magnesium (1.6-2.3) mg/dL Total Bilirubin (0.2-1.3) mg/dL AST (14-36) U/L ALT (4-34) U/L Alkaline Phosphatase (38-126) U/L Troponin I <0.012 (0.000-0.034) ng/mL NT-Pro-B Natriuret Pep pg/mL Total Protein (6.3-8.2) g/dL Albumin (3.5-5.0) g/dL - EKG Data -: EKG Interpreted by Me (EKG is sinus 61 IL 113 QRS 114 QTc 443) Disposition Clinical Impression: Bilateral leg pain, Postoperative pain Disposition: HOME SELF-CARE Condition: Good Instructions (If sedation given, give patient instructions): Pain Management After Surgery (DC) Is patient prescribed a controlled substance at d/c from ED?: No Referrals: Lj Menard DO [Primary Care Provider] - 1-2 days Time of Disposition: 17:00
[2023-08-09 16:26] LABS: ALT 54 U/L (4-34); AST 110 U/L (14-36); African American GFR (CKD) 86 (>60 ml/min/1.73 sqM); Albumin 2.5 g/dL (3.5-5.0); Alkaline Phosphatase 349 U/L (38-126); Anion Gap 4 mmol/L; Blood Urea Nitrogen 22 mg/dL (7-17); Calcium 8.8 mg/dL (8.4-10.2); Carbon Dioxide 29 mmol/L (22-30); Chloride 100 mmol/L (98-107); Glucose 107 mg/dL (74-99); Magnesium 2.2 mg/dL (1.6-2.3); Non-African American GFR(CKD) 75 (>60 ml/min/1.73 sqM); Phosphorus 4.3 mg/dL (2.5-4.5); Potassium 4.4 mmol/L (3.5-5.1); Sodium 133 mmol/L (137-145); Total Bilirubin 1.7 mg/dL (0.2-1.3); Total Protein 5.4 g/dL (6.3-8.2)
[2023-08-09 16:34] LABS: NT-Pro-B-Type Natriuretic Pept 552 pg/mL
[2023-08-09] MEDS: HYDROmorphone 0.5 MG/0.5 ML SYRINGE IVP STA (17:22)
[2023-08-09] MEDS: traMADol 50 MG STARTER PACK 3 TAB BTL PO STA (17:23)
[2023-08-09 18:13] VITALS: BP 119/77; PULSE 77
== END 2023-08-09 18:22 | disposition home or self-care (01) ==
LOC: EC 14:02
DX: G89.18 Other acute postprocedural pain (principal); G89.29 Other chronic pain; M79.605 Pain in left leg; M79.604 Pain in right leg; R60.0 Localized edema; J44.9 Chronic obstructive pulmonary disease, unspecified; F17.200 Nicotine dependence, unspecified, uncomplicated; Z79.51 Long term (current) use of inhaled steroids; Z79.899 Other long term (current) drug therapy; Z86.711 Personal history of pulmonary embolism; Z86.718 Personal history of other venous thrombosis and embolism
CPT/HCPCS: 36415; 93005; 83880; 80053; 83605; 83735; 84100; 84484; 85025; 85610; 85730; 99284; 96374; 96376; 96361 ×2; J1170 ×2

== ENCOUNTER 2023-08-22 12:37 | Inpatient (IN) | payer MEDICARE, OTHER ==
--- NOTE | 2023-08-22 13:28 | ED ---
General Adult HPI - General Chief complaint: Skin/Abscess/Foreign Body Stated complaint: Swelling of legs Time Seen by Provider: 08/22/23 12:44 Source: patient, EMS, RN notes reviewed, old records reviewed Mode of arrival: EMS Limitations: no limitations - History of Present Illness Initial comments: Patient is a pleasant 73-year-old female presents emergency department with leg pain. Patient states that is somewhat chronic however worse over the past several days. Patient states the swelling and discoloration has been present since her surgery a couple weeks ago. Patient did follow-up with her doctor a week ago. Patient states pain has significantly increased left more than right over the past 2 days. Patient states discomfort is extreme at this time. Patient does have nausea. Patient does have some abdominal discomfort that has been persistent since surgery back in June, . Patient states they believe she has liver cancer and she has been evaluated for that and to have a PET scan. - Related Data Home Medications Medication Instructions Recorded Confirmed Albuterol Inhaler [Ventolin Hfa 2 puff INHALATION RT-Q4H PRN 09/28/17 08/22/23 Inhaler] Atorvastatin Calcium [Lipitor] 40 mg PO HS 07/11/23 08/22/23 Calcium Carbonate/Vitamin D3 1 tab PO DAILY 07/11/23 08/22/23 [Calcium 600-Vit D3 10 mcg (400 Iu)] Co Q10 100 mg PO DAILY 07/11/23 08/22/23 Fluticasone/Umeclidin/Vilanter 1 puff INHALATION RT-DAILY 07/11/23 08/22/23 [Trelegy Ellipta 100-62.5-25] Rivaroxaban [Xarelto] 20 mg PO DAILY@1500 08/22/23 08/22/23 Allergies Allergy/AdvReac Type Severity Reaction Status Date / Time No Known Allergies Allergy Verified 08/22/23 16:37 Review of Systems ROS Statement: Those systems with pertinent positive or pertinent negative responses have been documented in the HPI. ROS Other: All systems not noted in ROS Statement are negative. Constitutional: Denies: fever Eyes: Denies: eye pain ENT: Denies: ear pain Respiratory: Denies: dyspnea Cardiovascular: Denies: chest pain Gastrointestinal: Reports: as per HPI, abdominal pain, nausea Musculoskeletal: Reports: as per HPI Skin: Reports: as per HPI Past Medical History Past Medical History: Cancer, COPD, Deep Vein Thrombosis (DVT), Eye Disorder, Pneumonia, Pulmonary Embolus (PE), Vascular Disorder Additional Past Medical History / Comment(s): DVT L leg, pulmonary embolism R lung, cyst between lung and spine being monitored, bronchitis, abdominal aortic aneurysm being monitored (pt does not recall size), PVD, urterine cancer with hysterectomy, beginnings of cataracts, shingelles in 1996. History of Any Multi-Drug Resistant Organisms: None Reported Past Surgical History: Back Surgery, Hysterectomy, Orthopedic Surgery, Tonsillectomy Additional Past Surgical History / Comment(s): Ectopic with salpingectomy/ovary removed then hysterectomy d/t cancer and has part of one ovary left, kyphoplasty, R shoulder fracture with surgery/screws in place. Past Anesthesia/Blood Transfusion Reactions: No Reported Reaction Additional Past Anesthesia/Blood Transfusion Reaction / Comment(s): Pt believes she may have received blood years ago with ectopic . Past Psychological History: No Psychological Hx Reported Smoking Status: Current every day smoker Past Alcohol Use History: None Reported Past Drug Use History: None Reported - Past Family History Mother Family Medical History: Dementia, Hypertension Additional Family Medical History / Comment(s): ALZHEIMERS Father Family Medical History: Myocardial Infarction ([place]) Additional Family Medical History / Comment(s): AT AGE 59 FROM [place] Brother(s) Family Medical History: Myocardial Infarction ([place]) Additional Family Medical History / Comment(s): ALSO AT AGE 59 FROM [place] AND A 2ND BROTHER W/VASCULAR DISEASE. Sister(s) Family Medical History: Cancer Additional Family Medical History / Comment(s): LUNG CANCER(SMOKER) General Exam Limitations: no limitations General appearance: alert Head exam: Present: normocephalic Eye exam: Present: normal appearance Neck exam: Present: normal inspection Respiratory exam: Present: normal lung sounds bilaterally Cardiovascular Exam: Present: regular rate, normal rhythm Expanded Peripheral pulses: 0: Femoral (L), Posterior Tibialis (R), Posterior Tibialis (L), Dorsalis Pedis (R), Dorsalis Pedis (L), 3+/4+: Femoral (R) GI/Abdominal exam: Present: soft, distended (Mid abdomen with hernia like dis tended mass). Absent: guarding, rebound, rigid, pulsatile mass Extremities exam: Present: other (+3 pedal edema bilateral with discoloration, mostly left distal purplish discoloration of the toes. Unable to obtain pulses) Neurological exam: Present: alert Psychiatric exam: Present: normal affect, normal mood Skin exam: Present: other (Purplish discoloration of left greater than right distal toes) Course Vital Signs 08/22/23 08/22/23 12:40 15:43 Temperature 97.6 F 97.9 F Pulse Rate 67 79 Respiratory 20 18 Rate Blood Pressure 92/66 141/60 O2 Sat by Pulse 98 98 Oximetry EKG Findings - EKG Results: EKG: interpreted by ERMD (Left axis. Incomplete right bundle branch block.), sinus rhythm, normal ST/T Medical Decision Making - Medical Decision Making Was pt. sent in by a medical professional or institution ([facility], LIVESTOCK BUYER, urgent care, hospital, or detention...) When possible be specific @ -No Did you speak to anyone other than the patient for history (EMS, parent, family, police, friend...)? What history was obtained from this source @ -No Did you review nursing and triage notes (agree or disagree)? Why? @ -I reviewed and agree with nursing and triage notes Were old charts reviewed (outside hosp., previous admission, EMS record, old EKG, old radiological studies, urgent care reports/EKG's, detention records)? Report findings @ -I did review previous admission and procedure Differential Diagnosis (chest pain, altered mental status, abdominal pain women, abdominal pain men, vaginal bleeding, weakness, fever, dyspnea, syncope, headache, dizziness, GI bleed, back pain, seizure, CVA, palpatations, mental health, musculoskeletal)? @ -Differential Musculoskeletal Muscular strain, contusion, ligament sprain, fracture, arthritis, septic arthritis, bursitis, cellulitis, muscle spasm, nerve compression, DVT, arterial occlusion, herpes zoster, electrolyte abnormality, tumor.... This is not meant to be in all inclusive list EKG interpreted by me (3pts min.). @ -As above X-rays interpreted by me (1pt min.). @ -None done CT interpreted by me (1pt min.). @ -CT scan shows post femorofemoral bypass. Large mass attached to liver. U/S interpreted by me (1pt. min.). @ -None done What testing was considered but not performed or refused? (CT, X-rays, U/S, labs)? Why? @ -None What meds were considered but not given or refused? Why? @ -None Did you discuss the management of the patient with other professionals (professionals i.e. , PA, LIVESTOCK BUYER, lab, RT, psych nurse, elementary school social worker, corporate traffic manager, teacher, communications officer, binder caser)? Give summary @ -Case was discussed with Dr. Almanza. [facility] paged for admission covering for Dr. Menard Was smoking cessation discussed for >3mins.? @ -No Was critical care preformed (if so, how long)? @ -No Were there social determinants of health that impacted care today? How? (Homelessness, low income, unemployed, alcoholism, drug addiction, transportation, low edu. Level, literacy, decrease access to med. care, retirement, rehab)? @ -No Was there de-escalation of care discussed even if they declined (Discuss DNR or withdrawal of care, Hospice)? DNR status @ -No What co-morbidities impacted this encounter? (DM, HTN, Smoking, COPD, CAD, C ancer, CVA, ARF, Chemo, Hep., AIDS, mental health diagnosis, sleep apnea, morbid obesity)? @ -Recent postop cholecystectomy and femorofemoral bypass. Was patient admitted / discharged? Hospital course, mention meds given and route, prescriptions, significant lab abnormalities, going to OR and other pertinent info. @ -Patient reevaluated and still having pain. Patient provided more pain medication. Patient will be admitted with surgical and vascular consult. Undiagnosed new problem with uncertain prognosis? @ -No Drug Therapy requiring intensive monitoring for toxicity (Heparin, Nitro, Ins ulin, Cardizem)? @ -No Were any procedures done? @ -No Diagnosis/symptom? @ -Abdominal mass, leg pain, acute kidney injury Acute, or Chronic, or Acute on Chronic? @ -Acute, acute, acute Uncomplicated (without systemic symptoms) or Complicated (systemic symptoms)? @ -Default Side effects of treatment? @ -No Exacerbation, Progression, or Severe Exacerbation? @ -No Poses a threat to life or bodily function? How? (Chest pain, [place], [place], pneumonia, PE, COPD, DKA, ARF, appy, cholecystitis, CVA, Diverticulitis, Homicidal, Suicidal, threat to staff... and all critical care pts) @ -No - Lab Data Result diagrams: 08/22/23 13:45 08/22/23 13:45 Lab Results 08/22/23 08/22/23 08/22/23 Range/Units 13:45 13:45 13:45 WBC 18.8 H (3.8-10.6) k/uL RBC 2.52 L (3.80-5.40) m/uL Hgb 7.1 L D (11.4-16.0) gm/dL Hct 22.3 L (34.0-46.0) % MCV 88.7 (80.0-100.0) fL MCH 28.1 (25.0-35.0) pg MCHC 31.7 (31.0-37.0) g/dL RDW 17.9 H (11.5-15.5) % Plt Count 473 H (150-450) k/uL MPV 8.6 Neutrophils % 93 % Lymphocytes % 3 % Monocytes % 3 % Eosinophils % 0 % Basophils % 0 % Neutrophils # 17.4 H (1.3-7.7) k/uL Lymphocytes # 0.6 L (1.0-4.8) k/uL Monocytes # 0.6 (0-1.0) k/uL Eosinophils # 0.0 (0-0.7) k/uL Basophils # 0.0 (0-0.2) k/uL Hypochromasia Marked Anisocytosis Slight PT 16.1 H (10.0-12.5) sec INR 1.6 H (<1.2) APTT 28.8 (22.0-30.0) sec Sodium 130 L (137-145) mmol/L Potassium 5.2 H (3.5-5.1) mmol/L Chloride 100 (98-107) mmol/L Carbon Dioxide 19 L (22-30) mmol/L Anion Gap 11 mmol/L BUN 68 H (7-17) mg/dL Creatinine 2.03 H (0.52-1.04) mg/dL Est GFR (CKD-EPI)AfAm 28 (>60 ml/min/1.73 sqM) Est GFR (CKD-EPI)NonAf 24 (>60 ml/min/1.73 sqM) Glucose 100 H (74-99) mg/dL Calcium 8.2 L (8.4-10.2) mg/dL Total Bilirubin 1.9 H (0.2-1.3) mg/dL AST 89 H (14-36) U/L ALT 43 H (4-34) U/L Alkaline Phosphatase 428 H (38-126) U/L Total Protein 5.2 L (6.3-8.2) g/dL Albumin 2.5 L (3.5-5.0) g/dL Amylase 84 (30-110) U/L Lipase 977 H (23-300) U/L Disposition Clinical Impression: Acute kidney injury, Abdominal mass, Leg pain Disposition: ADMITTED IP TO THIS HOSP Condition: Serious Is patient prescribed a controlled substance at d/c from ED?: No Referrals: Lj Menard DO [Primary Care Provider] - 1-2 days Time of Disposition: 17:27
[2023-08-22] MEDS: ONDANSETRON 4 MG/2 ML VIAL IVP STA (13:59)
[2023-08-22] MEDS: HYDROmorphone 1 MG/ML 1 ML SYRINGE IVP STA ×2 (14:01→17:51)
[2023-08-22] MEDS: PANTOPRAZOLE 40 MG/10 ML VIAL IVP STA (14:03)
[2023-08-22] MEDS: SODIUM CHLORIDE 0.9% 1,000 ML IV STA ×2 (14:05→15:14)
[2023-08-22 14:07] LABS: Anisocytosis Slight; Basophils % (A) 0 %; Eosinophils % (A) 0 %; HCT 22.3 % (34.0-46.0); Hypochromasia Marked; Lymphocytes # (A) 0.6 k/uL (1.0-4.8); Lymphocytes % (A) 3 %; MCH 28.1 pg (25.0-35.0); MCHC 31.7 g/dL (31.0-37.0); MCV 88.7 fL (80.0-100.0); Mean Platelet Volume 8.6; Monocytes # (A) 0.6 k/uL (0-1.0); Monocytes % (A) 3 %; Neutrophils # (A) 17.4 k/uL (1.3-7.7); Neutrophils % (A) 93 %; Platelet Count 473 k/uL (150-450); RBC 2.52 m/uL (3.80-5.40); RDW 17.9 % (11.5-15.5); WBC 18.8 k/uL (3.8-10.6)
[2023-08-22 14:08] LABS: INR 1.6 (<1.2); Partial Thromboplastin Time 28.8 sec (22.0-30.0); Prothrombin Time 16.1 sec (10.0-12.5)
[2023-08-22 14:09] LABS: HGB 7.1 gm/dL (11.4-16.0)
[2023-08-22 14:17] LABS: ALT 43 U/L (4-34); AST 89 U/L (14-36); Albumin 2.5 g/dL (3.5-5.0); Alkaline Phosphatase 428 U/L (38-126); Amylase 84 U/L (30-110); Anion Gap 11 mmol/L; Blood Urea Nitrogen 68 mg/dL (7-17); Calcium 8.2 mg/dL (8.4-10.2); Carbon Dioxide 19 mmol/L (22-30); Chloride 100 mmol/L (98-107); Glucose 100 mg/dL (74-99); Lipase 977 U/L (23-300); Potassium 5.2 mmol/L (3.5-5.1); Sodium 130 mmol/L (137-145); Total Bilirubin 1.9 mg/dL (0.2-1.3); Total Protein 5.2 g/dL (6.3-8.2)
[2023-08-22 14:23] LABS: African American GFR (CKD) 28 (>60 ml/min/1.73 sqM); Non-African American GFR(CKD) 24 (>60 ml/min/1.73 sqM)
[2023-08-22] MEDS: SODIUM CHLORIDE 0.9% 500 ML 500 ML IV STA (15:17)
--- NOTE | 2023-08-22 17:02 | CT ---
EXAMINATION TYPE: CT abdomen pelvis wo con CT DLP: 375.9 mGycm, Automated exposure control for dose reduction was used. DATE OF EXAM: 08/22/2023 4:39 PM COMPARISON: CT abdomen pelvis most recent from 01/04/2023 CLINICAL INDICATION:Female, 73 years old with history of abp, post op; Abdominal pain, post op femora l bypass TECHNIQUE: Axial CT abdomen pelvis wo con;Sagittal and coronal reformats were created on a separate workstation. Contrast used: mL of , (none if empty) Oral contrast used: without Oral Contrast (none if empty) FINDINGS: LOWER CHEST: Scattered pulmonary nodules compatible with metastatic disease are present largest in th e left lower lobe measuring up to 9 mm in the right lower lobe measuring up to 17 mm. There greater t fuller 10 metastatic foci. ABDOMEN LIVER: Large mass within the left hepatic lobe measuring up to 18.1 x 12.5 cm. Cm. GALLBLADDER AND BILE DUCTS: Unremarkable. PANCREAS: Unremarkable. SPLEEN: Unremarkable. ADRENAL GLANDS: Unremarkable. KIDNEYS AND URETERS: No evidence of hydronephrosis or renal calculus. The ureters are unremarkable. PELVIS BLADDER: Unremarkable REPRODUCTIVE: Unremarkable. ABDOMEN & PELVIS STOMACH AND BOWEL: No evidence of bowel obstruction. Scattered colonic diverticula are present. PERITONEUM/RETROPERITONEUM: No evidence of pneumoperitoneum or free fluid. VASCULATURE: Infrarenal abdominal aortic fusiform aneurysmal dilation measuring up to 3.7 x 4.4 cm. T here may be draping of the aorta which is similar prior in 2022. Severe atherosclerosis MUSCULOSKELETAL: No acute osseous abnormalities, L3 vertebral body cement. LYMPH NODES: No gross evidence for lymphadenopathy. SOFT TISSUE/ABDOMINAL WALL: There is a low abdominal subcutaneous soft tissue opacity possibly relati ng to fluid collection. This is in the low abdomen near the midline. IMPRESSION: 1. Post femoral-femoral bypass changes with fluid collection around the graft 2. New Large hepatic mass with metastatic disease throughout the lungs. 3. Similar infrarenal abdominal aortic aneurysm back to at least 01/04/2023
[2023-08-22] MEDS ORDERED: ONDANSETRON 4 MG/2 ML VIAL IVP PRN (17:28)
[2023-08-22] MEDS ORDERED: NALOXONE 0.4 MG/ML 1 ML VIAL IV PRN (17:28)
[2023-08-22] MEDS: SODIUM CHLORIDE 0.9% 1,000 ML IV SCH (18:00)
[2023-08-22] MEDS: HYDROmorphone 1 MG/ML 1 ML SYRINGE IVP PRN (23:27)
[2023-08-23] MEDS: PANTOPRAZOLE 40 MG/10 ML VIAL IV SCH (07:40)
[2023-08-23] MEDS ORDERED: ALBUTEROL NEBULIZED 2.5 MG/3 ML INHALATION PRN (10:27)
--- NOTE | 2023-08-23 11:27 | P.GSCN ---
History of Present Illness Consult date: 08/23/23 Reason for Consult: Arterial insufficiency Requesting physician: Mac Tan History of present illness: 73-year-old female with a history of peripheral arterial disease on and chronic left lower extremity claudication, suspected metastatic liver cancer, COPD, DVT, pulmonary embolus, history of uterine cancer. Patient came in with lower extremity pain and swelling. Also has liver mass.. She follows with Dr. Felecia vang and recently underwent a thumb bypass with CryoVein on 08/04/2023 and left common femoral thromboendarterectomy for left femoral and popliteal arterial occlusive disease. Patient states she has had increased pain in the left foot. She has had mottling and discoloration on that foot that has been chronic. She has increased swelling of bilateral lower extremities. She does take 20 mg daily, last taken on 08/21/2023. Patient is aware that she has a large liver mass, states she was scheduled for a outpatient PET scan. Denies any appointments with oncology. She also recently had her gallbladder out in June of this year. She is jaundiced, thin. Vascular surgery was consulted for arterial insufficiency. Review of Systems A 14 point review systems was completed all pertinent positives and negatives as stated in the HPI. 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 History of Any Multi-Drug Resistant Organisms: None Reported Past Surgical History: Back Surgery, Hysterectomy, Orthopedic Surgery, Tonsillectomy Additional Past Surgical History / Comment(s): Ectopic with salpingectomy/ovary removed then hysterectomy d/t cancer and has part of one ovary left, kyphoplasty, R shoulder fracture with surgery/screws in place, right hip replacement Past Anesthesia/Blood Transfusion Reactions: No Reported Reaction Additional Past Anesthesia/Blood Transfusion Reaction / Comm: Pt believes she may have received blood years ago with ectopic . Past Psychological History: No Psychological Hx Reported Additional Psychological History / Comment(s): Pt resides alone in Senior Housing. She is independent. Smoking Status: Current every day smoker Past Alcohol Use History: None Reported Additional Past Alcohol Use History / Comment(s): Pt started smoking in 1965 and was a 2 ppd smoker. Last September 2016 she started cutting back and is now down to 2 cigarettes a day to week. Past Drug Use History: None Reported Additional Drug Use History / Comment(s): None - Past Family History Mother Family Medical History: Dementia, Hypertension Additional Family Medical History / Comment(s): ALZHEIMERS Father Family Medical History: Myocardial Infarction ([place]) Additional Family Medical History / Comment(s): AT AGE 59 FROM [place] Brother(s) Family Medical History: Myocardial Infarction ([place]) Additional Family Medical History / Comment(s): ALSO AT AGE 59 FROM [place] AND A 2ND BROTHER W/VASCULAR DISEASE. Sister(s) Family Medical History: Cancer Additional Family Medical History / Comment(s): LUNG CANCER(SMOKER) Medications and Allergies Home Medications Medication Instructions Recorded Confirmed Type Albuterol Inhaler [Ventolin Hfa 2 puff INHALATION RT-Q4H PRN 09/28/17 08/22/23 History Inhaler] Atorvastatin Calcium [Lipitor] 40 mg PO HS 07/11/23 08/22/23 History Calcium Carbonate/Vitamin D3 1 tab PO DAILY 07/11/23 08/22/23 History [Calcium 600-Vit D3 10 mcg (400 Iu)] Co Q10 100 mg PO DAILY 07/11/23 08/22/23 History Fluticasone/Umeclidin/Vilanter 1 puff INHALATION RT-DAILY 07/11/23 08/22/23 History [Trelegy Ellipta 100-62.5-25] Rivaroxaban [Xarelto] 20 mg PO DAILY@1500 08/22/23 08/22/23 History Allergies Allergy/AdvReac Type Severity Reaction Status Date / Time No Known Allergies Allergy Verified 08/22/23 16:37 Surgical - Exam Vital Signs Temp Pulse Resp BP Pulse Ox 97.6 F 67 20 92/66 98 08/22/23 12:40 08/22/23 12:40 08/22/23 12:40 08/22/23 12:40 08/22/23 12:40 General appearance: The patient is alert, oriented, appears in no acute distress. HET: Head is normocephalic and atraumatic. Sclera icteric. Neck: Supple. Heart: Regular. Lungs: Equal expansion, normal respiratory effort. Abdomen: Thin. Hepatomegaly, firm, hard over right abdomen. Extremities: Bilateral lower extremity swelling, legs are weeping. Left midfoot and toes are purple and mottled, cool to the touch. Bilateral palpable femoral pulse, no DP or PT pulse on the left lower extremity. Positive DP and PT on right. Left popliteal Doppler signal as well as for moral signal, bypass with audible multiphasic signal. Skin: Jaundice. Neurological: No focal deficits. Results - Labs 08/22/23 13:45 08/22/23 13:45 Abnormal Lab Results - Last 24 Hours (Table) 08/22/23 08/22/23 08/22/23 Range/Units 13:45 13:45 13:45 WBC 18.8 H (3.8-10.6) k/uL RBC 2.52 L (3.80-5.40) m/uL Hgb 7.1 L D (11.4-16.0) gm/dL Hct 22.3 L (34.0-46.0) % RDW 17.9 H (11.5-15.5) % Plt Count 473 H (150-450) k/uL Neutrophils # 17.4 H (1.3-7.7) k/uL Lymphocytes # 0.6 L (1.0-4.8) k/uL PT 16.1 H (10.0-12.5) sec INR 1.6 H (<1.2) Sodium 130 L (137-145) mmol/L Potassium 5.2 H (3.5-5.1) mmol/L Carbon Dioxide 19 L (22-30) mmol/L BUN 68 H (7-17) mg/dL Creatinine 2.03 H (0.52-1.04) mg/dL Glucose 100 H (74-99) mg/dL Calcium 8.2 L (8.4-10.2) mg/dL Total Bilirubin 1.9 H (0.2-1.3) mg/dL AST 89 H (14-36) U/L ALT 43 H (4-34) U/L Alkaline Phosphatase 428 H (38-126) U/L Total Protein 5.2 L (6.3-8.2) g/dL Albumin 2.5 L (3.5-5.0) g/dL Lipase 977 H (23-300) U/L Diabetes panel 08/22/23 Range/Units 13:45 Sodium 130 L (137-145) mmol/L Potassium 5.2 H (3.5-5.1) mmol/L Chloride 100 (98-107) mmol/L Carbon Dioxide 19 L (22-30) mmol/L BUN 68 H (7-17) mg/dL Creatinine 2.03 H (0.52-1.04) mg/dL Glucose 100 H (74-99) mg/dL Calcium 8.2 L (8.4-10.2) mg/dL AST 89 H (14-36) U/L ALT 43 H (4-34) U/L Alkaline Phosphatase 428 H (38-126) U/L Total Protein 5.2 L (6.3-8.2) g/dL Albumin 2.5 L (3.5-5.0) g/dL Calcium panel 08/22/23 Range/Units 13:45 Calcium 8.2 L (8.4-10.2) mg/dL Albumin 2.5 L (3.5-5.0) g/dL Pituitary panel 08/22/23 Range/Units 13:45 Sodium 130 L (137-145) mmol/L Potassium 5.2 H (3.5-5.1) mmol/L Chloride 100 (98-107) mmol/L Carbon Dioxide 19 L (22-30) mmol/L BUN 68 H (7-17) mg/dL Creatinine 2.03 H (0.52-1.04) mg/dL Glucose 100 H (74-99) mg/dL Calcium 8.2 L (8.4-10.2) mg/dL Adrenal panel 08/22/23 Range/Units 13:45 Sodium 130 L (137-145) mmol/L Potassium 5.2 H (3.5-5.1) mmol/L Chloride 100 (98-107) mmol/L Carbon Dioxide 19 L (22-30) mmol/L BUN 68 H (7-17) mg/dL Creatinine 2.03 H (0.52-1.04) mg/dL Glucose 100 H (74-99) mg/dL Calcium 8.2 L (8.4-10.2) mg/dL Total Bilirubin 1.9 H (0.2-1.3) mg/dL AST 89 H (14-36) U/L ALT 43 H (4-34) U/L Alkaline Phosphatase 428 H (38-126) U/L Total Protein 5.2 L (6.3-8.2) g/dL Albumin 2.5 L (3.5-5.0) g/dL - Imaging Comments: CT abdomen and pelvis without contrast reports post femoral-femoral bypass changes with fluid collection around the graft. 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 Similar infrarenal abdominal aortic aneurysm back to at least 01/04/2023. Assessment and Plan Assessment: 1. Left femoral and popliteal artery occlusive disease status post femorofemoral bypass with CryoVein, left common femoral thromboendarterectomy 2. Large liver mass with metastatic disease throughout the lungs 3. Acute kidney injury 4. History of DVT and pulmonary embolism Plan: 1. Consider possible heparin drip if patient is not going for liver biopsy today 2. Await recommendations from oncology 3. Left foot/lower extremity chronic disease, status post recent femorofemoral bypass. No further revascularization available. Patient may require a palliative [id number] amputation for pain control. 4. Discussed with primary team, consider palliative/hospice care. Thank you for this consultation, we will continue to follow. The impression and plan of care has been dictated as directed. I performed a history and examination of this patient, discussed the same with the dictator. I agree with the dictator's note ,documented as a scribe. Any additional findings or plans will be noted.
[2023-08-23 11:42] LABS: ALT 49 U/L (8-44); AST 153 U/L (13-35); Albumin 2.7 g/dL (3.8-4.9); Albumin/Globulin Ratio 1.08 Ratio (1.60-3.17); Alkaline Phosphatase 425 U/L (41-126); Amylase 300 U/L (23-121); BUN/Creat Ratio 34.89 Ratio (12.00-20.00); Blood Urea Nitrogen 66.3 mg/dL (9.0-27.0); Calcium 8.6 mg/dL (8.7-10.3); Carbon Dioxide 20.4 mmol/L (21.6-31.8); Chloride 98 mmol/L (96-109); Globulin 2.5 g/dL (1.6-3.3); Glucose 81 mg/dL (70-110); Lipase 236 U/L (14-63); Magnesium 2.5 mg/dL (1.5-2.4); Potassium 5.8 mmol/L (3.5-5.5); Sodium 130 mmol/L (135-145); Total Bilirubin 0.9 mg/dL (0.3-1.2); Total Protein 5.2 g/dL (6.2-8.2)
--- NOTE | 2023-08-23 12:02 | P.GSCN ---
History of Present Illness Consult date: 08/23/23 History of present illness: CHIEF COMPLAINT: Left leg pain HISTORY OF PRESENT ILLNESS: This is a 73-year-old female who presented to the ER with complaints of left leg pain, swelling and discoloration. This pain has been chronic but worsened over the last several days. Patient has history femoral to femoral bypass and left common femoral thromboendarterectomy with Dr. Almanza on 08/04/2023. Vascular surgery is following patient. Surgical service consulted in regards to postoperative care. Patient had cholecystectomy with Dr. Martel on July 11, 2023. Patient denies any abdominal pain. Denies any nausea or vomiting. Her incision sites are healed. She had a CT scan abdomen pelvis that did note a new large hepatic mass with metastatic disease throughout the lungs. Oncology is on consult. PAST MEDICAL HISTORY: See below PAST SURGICAL HISTORY: See below MEDICATIONS: See below ALLERGIES: See below SOCIAL HISTORY: No illicit drug use. REVIEW OF SYSTEMS: CONSTITUTIONAL: Denies fever or chills. HEENT: Denies blurred vision, vision changes, or eye pain. Denies hemoptysis CARDIOVASCULAR: Denies chest pain or pressure. RESPIRATORY: No shortness of breath. GASTROINTESTINAL: See HPI for pertinent findings HEMATOLOGIC: Denies bleeding disorders. GENITOURINARY: Denies any blood in urine or increased urinary frequency. SKIN: Denies pruitis. Denies rash. PHYSICAL EXAM: VITAL SIGNS: Reviewed GENERAL: Jaundice. no acute distress. ABDOMEN: Patient's abdomen is distended in RUQ. Evidence of hepatomegaly. Nontender. Incision sites from cholecystectomy have healed and no drainage noted NEUROLOGIC: Alert and oriented. Cranial nerves II through XII grossly intact. Extremities: Left leg swelling. Purple discoloration in the foot. Extremity is cool to touch. LABORATORY DATA: WBC 18.8 HGb 7.1 plt 473 Na 130 K 5.8 cr 1.9 Total bilirubin 1.9 liver enzymes elevated Lipase 977 down 236 IMAGING: CT scan abdomen pelvis post femoral-femoral bypass changes with fluid collection around the graft. 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 Similar infrarenal abdominal aortic aneurysm ASSESSMENT: 1. Recent cholecystectomy for cholecystitis on July 11, 2023 2. New large hepatic mass with metastatic disease throughout the lungs noted on CT 3. Left leg pain and swelling with left femoral and popliteal artery occlusive disease PLAN: -Agree with oncology and vascular surgery consult -Continue supportive care Physician Labor Relations Officer note has been reviewed by physician. Signing provider agrees with the documented findings, assessment, and plan of care. 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 History of Any Multi-Drug Resistant Organisms: None Reported Past Surgical History: Back Surgery, Hysterectomy, Orthopedic Surgery, Tonsillectomy Additional Past Surgical History / Comment(s): Ectopic with salpingectomy/ovary removed then hysterectomy d/t cancer and has part of one ovary left, kyphoplasty, R shoulder fracture with surgery/screws in place, right hip replacement Past Anesthesia/Blood Transfusion Reactions: No Reported Reaction Additional Past Anesthesia/Blood Transfusion Reaction / Comm: Pt believes she may have received blood years ago with ectopic . Past Psychological History: No Psychological Hx Reported Additional Psychological History / Comment(s): Pt resides alone in Senior Housing. She is independent. Smoking Status: Current every day smoker Past Alcohol Use History: None Reported Additional Past Alcohol Use History / Comment(s): Pt started smoking in 1965 and was a 2 ppd smoker. Last September 2016 she started cutting back and is now down to 2 cigarettes a day to week. Past Drug Use History: None Reported Additional Drug Use History / Comment(s): None - Past Family History Mother Family Medical History: Dementia, Hypertension Additional Family Medical History / Comment(s): ALZHEIMERS Father Family Medical History: Myocardial Infarction ([place]) Additional Family Medical History / Comment(s): AT AGE 59 FROM [place] Brother(s) Family Medical History: Myocardial Infarction ([place]) Additional Family Medical History / Comment(s): ALSO AT AGE 59 FROM [place] AND A 2ND BROTHER W/VASCULAR DISEASE. Sister(s) Family Medical History: Cancer Additional Family Medical History / Comment(s): LUNG CANCER(SMOKER) Medications and Allergies Home Medications Medication Instructions Recorded Confirmed Type Albuterol Inhaler [Ventolin Hfa 2 puff INHALATION RT-Q4H PRN 09/28/17 08/22/23 History Inhaler] Atorvastatin Calcium [Lipitor] 40 mg PO HS 07/11/23 08/22/23 History Calcium Carbonate/Vitamin D3 1 tab PO DAILY 07/11/23 08/22/23 History [Calcium 600-Vit D3 10 mcg (400 Iu)] Co Q10 100 mg PO DAILY 07/11/23 08/22/23 History Fluticasone/Umeclidin/Vilanter 1 puff INHALATION RT-DAILY 07/11/23 08/22/23 History [Trelegy Ellipta 100-62.5-25] Rivaroxaban [Xarelto] 20 mg PO DAILY@1500 08/22/23 08/22/23 History Allergies Allergy/AdvReac Type Severity Reaction Status Date / Time No Known Allergies Allergy Verified 08/22/23 16:37 Surgical - Exam Vital Signs Temp Pulse Resp BP Pulse Ox 97.6 F 67 20 92/66 98 08/22/23 12:40 08/22/23 12:40 08/22/23 12:40 08/22/23 12:40 08/22/23 12:40 Results - Labs 08/22/23 13:45 08/23/23 06:55 Abnormal Lab Results - Last 24 Hours (Table) 08/22/23 08/22/23 08/22/23 Range/Units 13:45 13:45 13:45 WBC 18.8 H (3.8-10.6) k/uL RBC 2.52 L (3.80-5.40) m/uL Hgb 7.1 L D (11.4-16.0) gm/dL Hct 22.3 L (34.0-46.0) % RDW 17.9 H (11.5-15.5) % Plt Count 473 H (150-450) k/uL Neutrophils # 17.4 H (1.3-7.7) k/uL Lymphocytes # 0.6 L (1.0-4.8) k/uL PT 16.1 H (10.0-12.5) sec INR 1.6 H (<1.2) Sodium 130 L (137-145) mmol/L Potassium 5.2 H (3.5-5.1) mmol/L Carbon Dioxide 19 L (22-30) mmol/L BUN 68 H (7-17) mg/dL Creatinine 2.03 H (0.52-1.04) mg/dL Glucose 100 H (74-99) mg/dL Calcium 8.2 L (8.4-10.2) mg/dL Total Bilirubin 1.9 H (0.2-1.3) mg/dL AST 89 H (14-36) U/L ALT 43 H (4-34) U/L Alkaline Phosphatase 428 H (38-126) U/L Total Protein 5.2 L (6.3-8.2) g/dL Albumin 2.5 L (3.5-5.0) g/dL Lipase 977 H (23-300) U/L Diabetes panel 08/22/23 Range/Units 13:45 Sodium 130 L (137-145) mmol/L Potassium 5.2 H (3.5-5.1) mmol/L Chloride 100 (98-107) mmol/L Carbon Dioxide 19 L (22-30) mmol/L BUN 68 H (7-17) mg/dL Creatinine 2.03 H (0.52-1.04) mg/dL Glucose 100 H (74-99) mg/dL Calcium 8.2 L (8.4-10.2) mg/dL AST 89 H (14-36) U/L ALT 43 H (4-34) U/L Alkaline Phosphatase 428 H (38-126) U/L Total Protein 5.2 L (6.3-8.2) g/dL Albumin 2.5 L (3.5-5.0) g/dL Calcium panel 08/22/23 Range/Units 13:45 Calcium 8.2 L (8.4-10.2) mg/dL Albumin 2.5 L (3.5-5.0) g/dL Pituitary panel 08/22/23 Range/Units 13:45 Sodium 130 L (137-145) mmol/L Potassium 5.2 H (3.5-5.1) mmol/L Chloride 100 (98-107) mmol/L Carbon Dioxide 19 L (22-30) mmol/L BUN 68 H (7-17) mg/dL Creatinine 2.03 H (0.52-1.04) mg/dL Glucose 100 H (74-99) mg/dL Calcium 8.2 L (8.4-10.2) mg/dL Adrenal panel 08/22/23 Range/Units 13:45 Sodium 130 L (137-145) mmol/L Potassium 5.2 H (3.5-5.1) mmol/L Chloride 100 (98-107) mmol/L Carbon Dioxide 19 L (22-30) mmol/L BUN 68 H (7-17) mg/dL Creatinine 2.03 H (0.52-1.04) mg/dL Glucose 100 H (74-99) mg/dL Calcium 8.2 L (8.4-10.2) mg/dL Total Bilirubin 1.9 H (0.2-1.3) mg/dL AST 89 H (14-36) U/L ALT 43 H (4-34) U/L Alkaline Phosphatase 428 H (38-126) U/L Total Protein 5.2 L (6.3-8.2) g/dL Albumin 2.5 L (3.5-5.0) g/dL
[2023-08-23] MEDS: IPRATROPIUM 0.5 MG/2.5 ML NEBU INHALATION SCH (12:10)
[2023-08-23 12:28] LABS: Basophils # (A) 0.01 X 10*3/uL (0.00-0.10); Basophils % (A) 0.1 %; Eosinophils # (A) 0 X 10*3/uL (0.04-0.35); Eosinophils % (A) 0 %; HCT 21.4 % (37.2-46.3); HGB 6.6 g/dL (12.0-15.0); Hypochromasia (M) 2+; Lymphocytes # (A) 1.08 X 10*3/uL (0.90-5.00); Lymphocytes % (A) 6.1 %; MCH 27.4 pg (27.0-32.0); MCHC 30.8 g/dL (32.0-37.0); MCV 88.8 FL (80.0-97.0); Mean Platelet Volume 9.7 FL (9.5-12.2); Monocytes # (A) 0.95 X 10*3/uL (0.20-1.00); Monocytes % (A) 5.4 %; NRBC Per 100 WBC 0 X 10*3/uL (0.00-0.01); Neutrophils % (A) 87.6 %; Platelet Count 370 X 10*3/uL (140-440); RBC 2.41 X 10*6/uL (4.10-5.20); RDW 17.9 % (11.5-14.5); WBC 17.68 X 10*3/uL (4.50-10.00)
[2023-08-23 12:40] VITALS: BMI 23.3
[2023-08-23] MEDS: SODIUM ZIRCONIUM CYCLOSILICATE 10 GM PACKET PO ONE (13:47)
[2023-08-23] MEDS: SYMBICORT 80-4.5 MCG INHALER INHALATION SCH (18:54)
[2023-08-23 19:40] LABS: % Iron Saturation 26.5 (12.00-45.00)
--- NOTE | 2023-08-23 20:37 | P.CONS ---
History of Present Illness - Reason for Consult Consult date: 08/23/23 oncological care Requesting physician: Mac Tan - Chief Complaint leg pain, abdominal pain - History of Present Illness Patient is a 73-year-old female with a history of peripheral arterial disease and chronic left lower extremity claudication, hx of heavy smoking, COPD, DVT, pulmonary embolus, history of uterine cancer, and newly diagnosed suspected metastatic liver cancer. She was recently referred to Dr Ad Gruber for evaluation for liver mass, but has yet to establish care. Patient had CT abdomen with contrast on 07/21/2023 which revealed 10 x 14 cm ill-defined mass in the left liver that was not present on CTA abdomen on 01/04/2023. Small amount of subcutaneous and free intraperitoneal air noted. Stable infrarenal abdominal aortic aneurysm with extensive mural thrombus. And marked emphysematous changes in the lung bases. PET CT was scheduled but has yet to be obtained. Patient came in with lower extremity pain and swelling. Also c/o intermittent abdominal pain and nausea and vomiting. She follows with Dr. Portillo and recently underwent a bypass with CryoVein on 08/04/2023 and left common femoral thromboendarterectomy for left femoral and popliteal arterial occlusive disease. Patient states she has had increased pain in the left foot, with mottling and discoloration on that foot that has been chronic. She has increased swelling of bilateral lower extremities. Currently on xarelto 20 mg daily, last taken on 08/21/2023. Patient reports she has been experiencing intermittent abdominal pain with nausea vomiting. Also reporting diminished appetite and decreased oral intake as well as progressing weakness and fatigue. She reports stools were initially pale but now has become darker in color but are loose. Upon admission CT abdomen pelvis without contrast revealed post femoral bypass changes with fluid collection around graft. New large hepatic mass measuring 18.1 x 12.5 cm with metastatic disease throughout the lungs. Similar infrarenal abdominal aortic aneurysm noted. Upon admission CBC revealed WBC 18.8, hemoglobin 7.1, platelets 473,000. Bilirubin 1.9, AST 89, ALT 43, ALP 428. Lipase 977, amylase 84. Creatinine 2.03, GFR 24. Hemoglobin today noted at 6.6. 1 unit PRBCs ordered. Review of Systems 10 point ROS is negative except as stated in the HPI Past Medical History Past Medical History: Cancer, COPD, Deep Vein Thrombosis (DVT), Eye Disorder, Pneumonia, Pulmonary Embolus (PE), Vascular Disorder Additional Past Medical History / Comment(s): DVT L leg, pulmonary embolism R lung, cyst between lung and spine being monitored, bronchitis, abdominal aortic aneurysm being monitored (pt does not recall size), PVD, urterine cancer with hysterectomy, beginnings of cataracts, shingelles in 1996. History of Any Multi-Drug Resistant Organisms: None Reported Past Surgical History: Back Surgery, Hysterectomy, Orthopedic Surgery, Tonsillectomy Additional Past Surgical History / Comment(s): Ectopic with salpingectomy/ovary removed then hysterectomy d/t cancer and has part of one ovary left, kyphoplasty, R shoulder fracture with surgery/screws in place, right hip replacement Past Anesthesia/Blood Transfusion Reactions: No Reported Reaction Additional Past Anesthesia/Blood Transfusion Reaction / Comm: Pt believes she may have received blood years ago with ectopic . Past Psychological History: No Psychological Hx Reported Additional Psychological History / Comment(s): Pt resides alone in Senior Housing. She is independent. Smoking Status: Current every day smoker Past Alcohol Use History: None Reported Additional Past Alcohol Use History / Comment(s): Pt started smoking in 1965 and was a 2 ppd smoker. Last September 2016 she started cutting back and is now down to 2 cigarettes a day to week. Past Drug Use History: None Reported Additional Drug Use History / Comment(s): None - Past Family History Mother Family Medical History: Dementia, Hypertension Additional Family Medical History / Comment(s): ALZHEIMERS Father Family Medical History: Myocardial Infarction ([place]) Additional Family Medical History / Comment(s): AT AGE 59 FROM [place] Brother(s) Family Medical History: Myocardial Infarction ([place]) Additional Family Medical History / Comment(s): ALSO AT AGE 59 FROM [place] AND A 2ND BROTHER W/VASCULAR DISEASE. Sister(s) Family Medical History: Cancer Additional Family Medical History / Comment(s): LUNG CANCER(SMOKER) Medications and Allergies Home Medications Medication Instructions Recorded Confirmed Type Albuterol Inhaler [Ventolin Hfa 2 puff INHALATION RT-Q4H PRN 09/28/17 08/22/23 History Inhaler] Atorvastatin Calcium [Lipitor] 40 mg PO HS 07/11/23 08/22/23 History Calcium Carbonate/Vitamin D3 1 tab PO DAILY 07/11/23 08/22/23 History [Calcium 600-Vit D3 10 mcg (400 Iu)] Co Q10 100 mg PO DAILY 07/11/23 08/22/23 History Fluticasone/Umeclidin/Vilanter 1 puff INHALATION RT-DAILY 07/11/23 08/22/23 History [Trelegy Ellipta 100-62.5-25] Rivaroxaban [Xarelto] 20 mg PO DAILY@1500 08/22/23 08/22/23 History Allergies Allergy/AdvReac Type Severity Reaction Status Date / Time No Known Allergies Allergy Verified 08/22/23 16:37 Physical Exam Vitals: Vital Signs Temp Pulse Pulse Pulse Pulse Resp BP 08/23/23 15:43 68 08/23/23 13:55 08/23/23 12:59 97.5 F L 61 16 08/23/23 12:21 68 08/23/23 12:11 68 08/23/23 07:55 97.6 F 67 17 08/23/23 01:16 97.7 F 71 16 08/22/23 23:41 18 08/22/23 23:08 97.6 F 60 18 08/22/23 20:00 97.0 F L 77 16 08/22/23 17:54 97.4 F L 80 18 129/80 BP Pulse Ox 08/23/23 15:43 08/23/23 13:55 100 08/23/23 12:59 107/62 08/23/23 12:21 08/23/23 12:11 08/23/23 07:55 114/71 08/23/23 01:16 110/70 94 L 08/22/23 23:41 08/22/23 23:08 124/70 94 L 08/22/23 20:00 115/56 94 L 08/22/23 17:54 97 Intake and Output 08/23/23 08/23/23 08/23/23 06:59 14:59 22:59 Intake Total 400 0 Balance 400 0 Intake: Oral 400 Blood Product 0 Rc As-1 Unit 0 [id number] Other: Voiding Method Bedpan Bedpan Diaper Diaper Weight 59.874 kg 59.874 kg - Constitutional General appearance: average body habitus, no acute distress - EENT Eyes: EOMI ENT: hearing grossly normal - Respiratory Respiratory: bilateral: CTA - Cardiovascular Rhythm: regular Heart sounds: normal: S1, S2 leg Peripheral Edema: right: 2+, left: 4+ - Gastrointestinal severe hepatomegaly noted on exam General gastrointestinal: hepatomegaly, tenderness Localized gastrointestinal: tender: RUQ - Integumentary ecchymosis and venous stasis changes to BLE Integumentary: no cyanotic, pale - Musculoskeletal Musculoskeletal: generalized weakness - Psychiatric Psychiatric: A&O x's 3 Results CBC & Chem 7: 08/23/23 06:55 08/23/23 06:55 Labs: Abnormal Lab Results - Last 24 Hours (Table) 08/23/23 08/23/23 08/23/23 Range/Units 06:55 06:55 13:05 WBC 17.68 H (4.50-10.00) X 10*3/uL RBC 2.41 L (4.10-5.20) X 10*6/uL Hgb 6.6 A* (12.0-15.0) g/dL Hct 21.4 L (37.2-46.3) % MCHC 30.8 L (32.0-37.0) g/dL RDW 17.9 H (11.5-14.5) % Immature Gran # 0.14 H (0.00-0.04) X 10*3/uL Neutrophils # 15.50 H (1.80-7.70) X 10*3/uL Eosinophils # 0 L (0.04-0.35) X 10*3/uL Hypochromasia (manual) 2+ A Sodium 130 L (135-145) mmol/L Potassium 5.8 H (3.5-5.5) mmol/L Carbon Dioxide 20.4 L (21.6-31.8) mmol/L BUN 66.3 H (9.0-27.0) mg/dL Creatinine 1.9 H (0.6-1.5) mg/dL Est GFR (CKD-EPI) 28 L (>=60) BUN/Creatinine Ratio 34.89 H (12.00-20.00) Ratio Calcium 8.6 L (8.7-10.3) mg/dL Magnesium 2.5 H (1.5-2.4) mg/dL AST 153 H (13-35) U/L ALT 49 H (8-44) U/L Alkaline Phosphatase 425 H (41-126) U/L Total Protein 5.2 L (6.2-8.2) g/dL Albumin 2.7 L (3.8-4.9) g/dL Albumin/Globulin Ratio 1.08 L (1.60-3.17) Ratio Amylase 300 H (23-121) U/L Lipase 236 H (14-63) U/L Crossmatch See Detail CT scan - abdomen: report reviewed CT scan - pelvis: report reviewed Venous US: report reviewed Assessment and Plan (1) Abdominal mass Current Visit: Yes Status: Acute Priority: High Code(s): R19.00 - INTRA- ABD AND PELVIC SWELLING, MASS AND LUMP, UNSP SITE SNOMED Code(s): 892289183 (2) Acute kidney injury Current Visit: Yes Status: Acute Priority: High Code(s): N17.9 - ACUTE KIDNEY FAILURE, UNSPECIFIED SNOMED Code(s): 19959061 (3) Leg pain Current Visit: Yes Status: Acute Priority: High Code(s): M79.606 - PAIN IN LEG, UNSPECIFIED SNOMED Code(s): 05258979 (4) Deep vein thrombosis (DVT) of lower extremity Current Visit: No Status: Acute Priority: Medium Code(s): I82.409 - ACUTE EMBOLISM AND THOMBOS UNSP DEEP VN UNSP LOWER EXTREMITY SNOMED Code(s): 260683882 (5) Anemia Current Visit: Yes Status: Acute Priority: High Code(s): D64.9 - ANEMIA, UNSPECIFIED SNOMED Code(s): 864070765 Plan: Liver mass, metastatic disease: -Newly diagnosed suspected metastatic liver cancer. She was recently referred to Dr Ad Gruber for evaluation for liver mass, but has yet to establish care. Patient had CT abdomen with contrast on 07/21/2023 which revealed 10 x 14 cm ill-defined mass in the left liver that was not present on CTA abdomen on 01/04/2023. PET CT was scheduled but has yet to be obtained. -Upon admission CT abdomen pelvis without contrast revealed post femoral bypass changes with fluid collection around graft. New large hepatic mass measuring 18.1 x 12.5 cm with metastatic disease throughout the lungs. -Will obtain tumor markers. If AFP noted to be notably elevated, this can confirm diagnosis of HCC. If no significant findings noted, will need to obtain biopsy to confirm a diagnosis. Discussed findings and concern for a liver primary malignancy with metastasis. Pt was agreeable for further workup and biopsy if needed Anemia: -Upon admission CBC revealed WBC 18.8, hemoglobin 7.1, platelets 473,000. Hemoglobin today noted at 6.6. 1 unit PRBCs ordered. Upon trending labs, h emoglobin normal at 13.0 approx 5 weeks ago. Pt denies any episodes of acute bleeding or melena -Will obtain anemia workup -Please transfuse for hgb < 7 or if symptomatic -CBC daily DVT hx/leg pain -Underwent bypass with CryoVein on 08/04/2023 and left common femoral thromboendarterectomy for left femoral and popliteal arterial occlusive disease. 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 Doppler of bilateral lower extremities on 07/27/2023 revealed chronic a ppearing deep vein thrombosis within the left popliteal vein and left great saphenous vein. No acute DVT noted bilaterally -Vascular surgery following -Case discussed with vascular team today. Patient would need left AKA, as revascularization is not an option at this time. Recommended if patient needs to remain on anticoagulation from a vascular standpoint than heparin would be preferred vs xarelto in the situation further biopsy/interventions would be needed. However due to dropping hgb, any anticoagulation would be held for now Dr avilezests: I have performed H&P and developed impression and plan of care for patient, discussed with dictator. I agree with dictated note, documented as a s cribe
[2023-08-23] MEDS: SODIUM CHLORIDE 0.9% 1,000 ML IV SCH (21:54)
--- NOTE | 2023-08-23 22:01 | P.HPIM ---
History of Present Illness H&P Date: 08/23/23 Chief Complaint: Left leg swelling and pain Patient is a 73-year-old female with a past medical history of DVT/PE on anticoagulation, peripheral vascular disease with left leg pain status post femoral to femoral bypass and left common femoral thromboendarterectomy on 08/04/2023, history of cholecystectomy on 07/11/2023 presents to ER with complaints of left lower extremity pain swelling and discoloration. Patient has been having chronic pain which has improved during the last 7 to 10 days. Patient does have history of liver mass and her physician is planning to get PET scan as an outpatient.. Patient has not seen oncology before. Otherwise patient denied any complaints of fever or chills. No nausea vomiting. No diarrhea. No cough or sputum production. No chest pain. EKG showed sinus rhythm. CT of the abdomen pelvis showed post femoral-femoral bypass changes with fluid collection around the graft. 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 Similar infrarenal abdominal aortic aneurysm back to at least 01/04/2023. Measuring 3.7 x 4.4 cm. Laboratory data showed WBC 18.8 hemoglobin 7.1, MCV 88.7 and platelets 473 INR 1.6, sodium 130 potassium 5.2 chloride 100 bicarb is 19 BUN 68, creatinine 2.03 and blood sugar 100 Total bili 1.9 AST 89 ALT 43 and alk phos 428 and albumin 2.5 and lipase level 977 Review of Systems Constitutional: Patient denies any fever or chills . Patient does have generalized weakness. No weight loss. Abdomen: Patient denied nausea vomiting and diarrhea and abdominal pain. Cardiovascular: Patient denies any chest pain or short of breath no palpitations. Respiratory: patient denied any cough is from production. No shortness of breath Neurologic: Patient denied any numbness or tingling headache. Musculoskeletal: Patient denies any complaints of joint swelling or deformity. Complains of pain and swelling of the left greater than right leg Skin: Negative Psychiatric: Negative Endocrine: No heat or cold intolerance. No recent weight gain. Genitourinary: No dysuria or hematuria. All other 14 point ROS negative except the above Past Medical History Past Medical History: Cancer, COPD, Deep Vein Thrombosis (DVT), Eye Disorder, Pneumonia, Pulmonary Embolus (PE), Vascular Disorder Additional Past Medical History / Comment(s): DVT L leg, pulmonary embolism R lung, cyst between lung and spine being monitored, bronchitis, abdominal aortic aneurysm being monitored (pt does not recall size), PVD, urterine cancer with hysterectomy, beginnings of cataracts, shingelles in 1996. History of Any Multi-Drug Resistant Organisms: None Reported Past Surgical History: Back Surgery, Hysterectomy, Orthopedic Surgery, Tonsillectomy Additional Past Surgical History / Comment(s): Ectopic with salpingectomy/ovary removed then hysterectomy d/t cancer and has part of one ovary left, kyphoplasty, R shoulder fracture with surgery/screws in place, right hip replacement Past Anesthesia/Blood Transfusion Reactions: No Reported Reaction Additional Past Anesthesia/Blood Transfusion Reaction / Comment(s): Pt believes she may have received blood years ago with ectopic . Past Psychological History: No Psychological Hx Reported Additional Psychological History / Comment(s): Pt resides alone in Senior Housing. She is independent. Smoking Status: Current every day smoker Past Alcohol Use History: None Reported Additional Past Alcohol Use History / Comment(s): Pt started smoking in 1965 and was a 2 ppd smoker. Last September 2016 she started cutting back and is now down to 2 cigarettes a day to week. Past Drug Use History: None Reported Additional Drug Use History / Comment(s): None - Past Family History Mother Family Medical History: Dementia, Hypertension Additional Family Medical History / Comment(s): ALZHEIMERS Father Family Medical History: Myocardial Infarction ([place]) Additional Family Medical History / Comment(s): AT AGE 59 FROM [place] Brother(s) Family Medical History: Myocardial Infarction ([place]) Additional Family Medical History / Comment(s): ALSO AT AGE 59 FROM [place] AND A 2ND BROTHER W/VASCULAR DISEASE. Sister(s) Family Medical History: Cancer Additional Family Medical History / Comment(s): LUNG CANCER(SMOKER) Medications and Allergies Home Medications Medication Instructions Recorded Confirmed Type Albuterol Inhaler [Ventolin Hfa 2 puff INHALATION RT-Q4H PRN 09/28/17 08/22/23 History Inhaler] Atorvastatin Calcium [Lipitor] 40 mg PO HS 07/11/23 08/22/23 History Calcium Carbonate/Vitamin D3 1 tab PO DAILY 07/11/23 08/22/23 History [Calcium 600-Vit D3 10 mcg (400 Iu)] Co Q10 100 mg PO DAILY 07/11/23 08/22/23 History Fluticasone/Umeclidin/Vilanter 1 puff INHALATION RT-DAILY 07/11/23 08/22/23 History [Jake Francota 100-62.5-25] Rivaroxaban [Xarelto] 20 mg PO DAILY@1500 08/22/23 08/22/23 History Allergies Allergy/AdvReac Type Severity Reaction Status Date / Time No Known Allergies Allergy Verified 08/22/23 16:37 Physical Exam Vitals: Vital Signs Temp Pulse Pulse Pulse Pulse Resp BP 08/23/23 07:55 97.6 F 67 17 08/23/23 01:16 97.7 F 71 16 08/22/23 23:41 18 08/22/23 23:08 97.6 F 60 18 08/22/23 20:00 97.0 F L 77 16 08/22/23 17:54 97.4 F L 80 18 129/80 08/22/23 15:43 97.9 F 79 18 141/60 08/22/23 12:40 97.6 F 67 20 92/66 BP Pulse Ox 08/23/23 07:55 114/71 08/23/23 01:16 110/70 94 L 08/22/23 23:41 08/22/23 23:08 124/70 94 L 08/22/23 20:00 115/56 94 L 08/22/23 17:54 97 08/22/23 15:43 98 08/22/23 12:40 98 Intake and Output 08/22/23 08/23/23 08/23/23 22:59 06:59 14:59 Intake Total 240 400 Balance 240 400 Intake: Oral 240 400 Other: Voiding Method Bedpan Bedpan Diaper Diaper Weight 59.874 kg PHYSICAL EXAMINATION: Patient is lying in the bed comfortably, acute distress due to pain, awake alert and oriented.. HEENT: Normocephalic. Neck is supple. Pupils reactive. Nostrils clear. Oral cavity is moist. Neck reveals no JVD, carotid bruits, or thyromegaly. CHEST EXAMINATION: Trachea is central. Symmetrical expansion. Bibasilar diminished sounds. No wheezing. Nonlabored breathing.. CARDIAC: Normal S1, S2 with no gallops. No murmurs ABDOMEN: Soft. Bowel sounds normal. No organomegaly. No abdominal bruits. Extremities: Bilateral lower extremity swelling with skin dislocation/mottling of the left lower extremity. No clubbing or cyanosis Neurologically awake, alert, oriented x3. Patient is able to move all extremities.. No focal deficits noted Skin: No rash or skin lesions. Psychiatric: Coperative. Nonsuicidal, anxious. Musculoskeletal: No joint swelling or deformity. Normal range of motion. Results CBC & Chem 7: 08/23/23 06:55 08/23/23 06:55 Labs: Abnormal Lab Results - Last 24 Hours (Table) 08/22/23 08/22/23 08/22/23 Range/Units 13:45 13:45 13:45 WBC 18.8 H (3.8-10.6) k/uL RBC 2.52 L (3.80-5.40) m/uL Hgb 7.1 L D (11.4-16.0) gm/dL Hct 22.3 L (34.0-46.0) % RDW 17.9 H (11.5-15.5) % Plt Count 473 H (150-450) k/uL Neutrophils # 17.4 H (1.3-7.7) k/uL Lymphocytes # 0.6 L (1.0-4.8) k/uL PT 16.1 H (10.0-12.5) sec INR 1.6 H (<1.2) Sodium 130 L (137-145) mmol/L Potassium 5.2 H (3.5-5.1) mmol/L Carbon Dioxide 19 L (22-30) mmol/L BUN 68 H (7-17) mg/dL Creatinine 2.03 H (0.52-1.04) mg/dL Glucose 100 H (74-99) mg/dL Calcium 8.2 L (8.4-10.2) mg/dL Total Bilirubin 1.9 H (0.2-1.3) mg/dL AST 89 H (14-36) U/L ALT 43 H (4-34) U/L Alkaline Phosphatase 428 H (38-126) U/L Total Protein 5.2 L (6.3-8.2) g/dL Albumin 2.5 L (3.5-5.0) g/dL Lipase 977 H (23-300) U/L Thrombosis Risk Factor Assmnt - DVT/VTE Prophylaxis DVT/VTE Prophylaxis: Pharmacologic Prophylaxis ordered - Choose All That Apply Each Factor Represents 1 point: History of prior major surgery (<1month), Sw ollen legs (current) Each Risk Factor Represents 2 Points: Age 61-74 years, Malignancy Each Risk Factor Represents 3 Points: History of DVT/PE Thrombosis Risk Factor Assessment Total Risk Factor Score: 9 Thrombosis Risk Factor Assessment Level: High Risk Assessment and Plan Assessment: Bilateral lower extremity pain, swelling with recent history of femorofemoral bypass and left common femoral thromboendarterectomy Possible bilateral lower extremity cellulitis Acute kidney injury likely prerenal Leukocytosis with WBC 18.8 History of DVT/PE and on anticoagulation with Xarelto at home Mild hyperkalemia 5.2 on admission likely due to SIXTO Large liver mas with metastatic lesions to lung.. Patient is scheduled for outpatient PET scan. Abdominal aortic aneurysm stable from recent study Currently everyday smoker Plan: Patient will be continued on IV hydration with normal saline. Will start on antibiotics for possible underlying cellulitis. Patient does have a leukocytosis with WBC 18.8. Patient was given Lokelma due to hyperkalemia and follow-up potassium level. Vascular surgery was consulted for evaluation. Repeat hemoglobin level 6.6. Patient is being transfused with 1 unit of PRBC. Will hold on initiating heparin at this time. Oncology was consulted for further workup regarding liver mass. Continue with pain management. Prognosis is guarded with multiple medical problems and comorbid conditions. Will discuss CODE STATUS with the patient. Time with Patient: Greater than 30
[2023-08-23] MEDS: DEXTROSE 50% SYRINGE 50 ML IVP STA (23:12)
[2023-08-23] MEDS: HEPARIN SODIUM,PORCINE 5,000 UNIT/ML 1 ML VIAL SQ SCH (23:12)
[2023-08-23] MEDS: INSULIN REGULAR 100 UNIT/ML VIAL (IV) IV ONE (23:12)
[2023-08-24 03:06] LABS: Alpha Fetoprotein, Tumor Mkr <3.00 ng/mL (0.00-7.90); Cancer Antigen 19-9 29.6 U/mL (0.0-34.9); Carcinoembryonic Antigen 2.1 ng/mL (0.0-4.9)
[2023-08-24] MEDS ORDERED: NON FORMULARY DRUG (Fluticasone/Umeclidin/Vilanter [Trelegy Ellipta 100-62.5-25] 1 EACH Bl INHALATION SCH (08:00)
[2023-08-24 11:31] LABS: Blood Urea Nitrogen 47.7 mg/dL (9.0-27.0); Calcium 8.6 mg/dL (8.7-10.3); Carbon Dioxide 20.9 mmol/L (21.6-31.8); Chloride 98 mmol/L (96-109); Glucose 87 mg/dL (70-110); Potassium 5.8 mmol/L (3.5-5.5); Sodium 130 mmol/L (135-145)
[2023-08-24 11:48] LABS: HCT 25.2 % (37.2-46.3); HGB 7.7 g/dL (12.0-15.0); MCH 28.2 pg (27.0-32.0); MCHC 30.6 g/dL (32.0-37.0); MCV 92.3 FL (80.0-97.0); Mean Platelet Volume 9.8 FL (9.5-12.2); NRBC Per 100 WBC 0 X 10*3/uL (0.00-0.01); Platelet Count 258 X 10*3/uL (140-440); RBC 2.73 X 10*6/uL (4.10-5.20); RDW 18.1 % (11.5-14.5); WBC 15.65 X 10*3/uL (4.50-10.00)
--- NOTE | 2023-08-24 12:31 | P.PN ---
Subjective Progress Note Date: 08/24/23 No acute events. Pt resting comfortably in bed. S/p 1 unit PRBCs for hgb 6.6. Hgb 7.7 today. Tumor markers normal. Will proceed with IR biopsy of liver Objective - Vital Signs Vital signs: Vital Signs Temp 97.4 F L 08/24/23 07:42 Pulse 72 08/24/23 12:10 Resp 16 08/24/23 07:42 BP 118/75 08/24/23 07:42 Pulse Ox 96 08/24/23 07:42 FiO2 Intake & Output 08/23/23 08/24/23 08/24/23 18:59 06:59 18:59 Intake Total 310 830 Output Total 1800 850 Balance -1490 -20 Weight 59.874 kg Intake: Oral 830 Blood Product 310 Rc As-1 Unit 310 [id number] Output: Urine 900 850 Straight 900 450 Post Void Residual 900 Other: Voiding Method Bedpan Bedpan Indwelling Catheter Diaper Diaper # Voids 1 # Bowel Movements 2 - Constitutional General appearance: Present: average body habitus, no acute distress - EENT ENT: Present: hearing grossly normal - Respiratory Details: breathing even and unlabored - Cardiovascular Details: skin warm and dry - Integumentary Integumentary: Present: pale. Absent: cyanotic - Musculoskeletal Musculoskeletal: Present: generalized weakness - Psychiatric Psychiatric: Present: A&O x's 3 - Labs CBC & Chem 7: 08/24/23 06:55 08/24/23 06:55 Labs: Abnormal Lab Results - Last 24 Hours (Table) 08/23/23 08/23/23 08/23/23 Range/Units 06:55 13:05 13:45 WBC 17.68 H (4.50-10.00) X 10*3/uL RBC 2.41 L (4.10-5.20) X 10*6/uL Hgb 6.6 A* (12.0-15.0) g/dL Hct 21.4 L (37.2-46.3) % MCHC 30.8 L (32.0-37.0) g/dL RDW 17.9 H (11.5-14.5) % Immature Gran # 0.14 H (0.00-0.04) X 10*3/uL Neutrophils # 15.50 H (1.80-7.70) X 10*3/uL Eosinophils # 0 L (0.04-0.35) X 10*3/uL Hypochromasia (manual) 2+ A Sodium (135-145) mmol/L Potassium (3.5-5.5) mmol/L Carbon Dioxide (21.6-31.8) mmol/L BUN (9.0-27.0) mg/dL Est GFR (CKD-EPI) (>=60) BUN/Creatinine Ratio (12.00-20.00) Ratio Calcium (8.7-10.3) mg/dL TIBC 200 L (228-460) UG/DL Transferrin 143.0 L (204.0-354.0) mg/dL Ferritin 3250.0 H (10.0-291.0) ng/mL Crossmatch See Detail 08/24/23 08/24/23 Range/Units 06:55 06:55 WBC 15.65 H (4.50-10.00) X 10*3/uL RBC 2.73 L (4.10-5.20) X 10*6/uL Hgb 7.7 L (12.0-15.0) g/dL Hct 25.2 L (37.2-46.3) % MCHC 30.6 L (32.0-37.0) g/dL RDW 18.1 H (11.5-14.5) % Immature Gran # (0.00-0.04) X 10*3/uL Neutrophils # (1.80-7.70) X 10*3/uL Eosinophils # (0.04-0.35) X 10*3/uL Hypochromasia (manual) Sodium 130 L (135-145) mmol/L Potassium 5.8 H (3.5-5.5) mmol/L Carbon Dioxide 20.9 L (21.6-31.8) mmol/L BUN 47.7 H (9.0-27.0) mg/dL Est GFR (CKD-EPI) 37 L (>=60) BUN/Creatinine Ratio 31.80 H (12.00-20.00) Ratio Calcium 8.6 L (8.7-10.3) mg/dL TIBC (228-460) UG/DL Transferrin (204.0-354.0) mg/dL Ferritin (10.0-291.0) ng/mL Crossmatch Assessment and Plan (1) Abdominal mass Current Visit: Yes Status: Acute Priority: High Code(s): R19.00 - INTRA- ABD AND PELVIC SWELLING, MASS AND LUMP, UNSP SITE SNOMED Code(s): 079871995 (2) Acute kidney injury Current Visit: Yes Status: Acute Priority: High Code(s): N17.9 - ACUTE KIDNEY FAILURE, UNSPECIFIED SNOMED Code(s): 95175122 (3) Leg pain Current Visit: Yes Status: Acute Priority: High Code(s): M79.606 - PAIN IN LEG, UNSPECIFIED SNOMED Code(s): 90490872 (4) Deep vein thrombosis (DVT) of lower extremity Current Visit: No Status: Acute Priority: Medium Code(s): I82.409 - ACUTE EMBOLISM AND THOMBOS UNSP DEEP VN UNSP LOWER EXTREMITY SNOMED Code(s): 644330427 (5) Anemia Current Visit: Yes Status: Acute Priority: High Code(s): D64.9 - ANEMIA, UNSPECIFIED SNOMED Code(s): 639492277 Plan: Liver mass, metastatic disease: -Newly diagnosed suspected metastatic liver cancer. She was recently referred to Dr Ad Gruber for evaluation for liver mass, but has yet to establish care. Patient had CT abdomen with contrast on 07/21/2023 which revealed 10 x 14 cm ill- defined mass in the left liver that was not present on CTA abdomen on 01/04/2023. PET CT was scheduled but has yet to be obtained. -Upon admission CT abdomen pelvis without contrast revealed post femoral bypass changes with fluid collection around graft. New large hepatic mass measuring 18.1 x 12.5 cm with metastatic disease throughout the lungs. -Tumor markers ordered, AFP, CEA, and Ca 19-9 normal. Will proceed with IR biopsy of liver. This was discussed with patient and she was agreeable to proceed with biopsy. IR consult placed Anemia: -Upon admission CBC revealed WBC 18.8, hemoglobin 7.1, platelets 473,000. Hemoglobin today noted at 6.6. 1 unit PRBCs ordered. Upon trending labs, hemoglobin normal at 13.0 approx 5 weeks ago. Pt denies any episodes of acute bleeding or melena -Will obtain anemia workup -No nutritional deficiencies noted, folate, MMA still pending. Anemia labs consistent with anemia of inflammation -Please transfuse for hgb < 7 or if symptomatic -CBC daily DVT hx/leg pain -Underwent bypass with CryoVein on 08/04/2023 and left common femoral thromboendarterectomy for left femoral and popliteal arterial occlusive disease. 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 Doppler of bilateral lower extremities on 07/27/2023 revealed chronic appearing deep vein thrombosis within the left popliteal vein and left great saphenous vein. No acute DVT noted bilaterally -Vascular surgery following -Case discussed with vascular team today. Patient is not a candidate for revascularization of LLE. Recommended if patient needs to remain on anticoagulation from a vascular standpoint than heparin would be preferred vs xarelto in the situation further biopsy/interventions would be needed. Heparin subQ has been started but was held today for biopsy. Can restart once biopsy obtained attests: I have performed H&P and developed impression and plan of care for patient, discussed with dictator. I agree with dictated note, documented as a scribe
--- NOTE | 2023-08-24 13:39 | P.PN ---
Subjective Progress Note Date: 08/24/23 Principal diagnosis: Peripheral arterial disease Patient is seen and examined today as a follow-up. She has a history of left lower extremity arterial insufficiency status post femorofemoral bypass. States she does have some discomfort in the left lower extremity however improved from yesterday. She is without any acute changes. She had tumor markers that were all negative. Oncology is following and she will likely be scheduled for liver biopsy. Repeat hemoglobin today 7.7. This is status post 2 units of blood transfusion Objective - Vital Signs Vital signs: Vital Signs Temp 97.4 F L 08/24/23 07:42 Pulse 92 08/24/23 07:42 Resp 16 08/24/23 07:42 BP 118/75 08/24/23 07:42 Pulse Ox 96 08/24/23 07:42 FiO2 Intake & Output 08/23/23 08/24/23 08/24/23 18:59 06:59 18:59 Intake Total 310 830 Output Total 1800 850 Balance -1490 -20 Weight 59.874 kg Intake: Oral 830 Blood Product 310 Rc As-1 Unit 310 [id number] Output: Urine 900 850 Straight 900 450 Post Void Residual 900 Other: Voiding Method Bedpan Bedpan Diaper Diaper # Voids 1 # Bowel Movements 2 - Exam General appearance: The patient is alert, oriented, appears in no acute d istress. HET: Head is normocephalic and atraumatic. Pupils are equal and reactive. Neck: Supple. Heart: Regular. Lungs: Equal expansion, normal respiratory effort. Abdomen: Soft, hepatomegaly, firm, enlarged liver mass, tender, nondistended. Extremities: Bilateral lower extremity swelling. Left toes purple, mottled. Toes cool to the touch however left lower extremity otherwise warm to the touch. Patent bypass graft. Neurological: No focal deficits. - Labs CBC & Chem 7: 08/24/23 06:55 08/24/23 06:55 Labs: Abnormal Lab Results - Last 24 Hours (Table) 08/23/23 08/23/23 08/23/23 Range/Units 06:55 06:55 13:05 WBC 17.68 H (4.50-10.00) X 10*3/uL RBC 2.41 L (4.10-5.20) X 10*6/uL Hgb 6.6 A* (12.0-15.0) g/dL Hct 21.4 L (37.2-46.3) % MCHC 30.8 L (32.0-37.0) g/dL RDW 17.9 H (11.5-14.5) % Immature Gran # 0.14 H (0.00-0.04) X 10*3/uL Neutrophils # 15.50 H (1.80-7.70) X 10*3/uL Eosinophils # 0 L (0.04-0.35) X 10*3/uL Hypochromasia (manual) 2+ A Sodium 130 L (135-145) mmol/L Potassium 5.8 H (3.5-5.5) mmol/L Carbon Dioxide 20.4 L (21.6-31.8) mmol/L BUN 66.3 H (9.0-27.0) mg/dL Creatinine 1.9 H (0.6-1.5) mg/dL Est GFR (CKD-EPI) 28 L (>=60) BUN/Creatinine Ratio 34.89 H (12.00-20.00) Ratio Calcium 8.6 L (8.7-10.3) mg/dL Magnesium 2.5 H (1.5-2.4) mg/dL TIBC (228-460) UG/DL Transferrin (204.0-354.0) mg/dL Ferritin (10.0-291.0) ng/mL AST 153 H (13-35) U/L ALT 49 H (8-44) U/L Alkaline Phosphatase 425 H (41-126) U/L Total Protein 5.2 L (6.2-8.2) g/dL Albumin 2.7 L (3.8-4.9) g/dL Albumin/Globulin Ratio 1.08 L (1.60-3.17) Ratio Amylase 300 H (23-121) U/L Lipase 236 H (14-63) U/L Crossmatch See Detail 08/23/23 Range/Units 13:45 WBC (4.50-10.00) X 10*3/uL RBC (4.10-5.20) X 10*6/uL Hgb (12.0-15.0) g/dL Hct (37.2-46.3) % MCHC (32.0-37.0) g/dL RDW (11.5-14.5) % Immature Gran # (0.00-0.04) X 10*3/uL Neutrophils # (1.80-7.70) X 10*3/uL Eosinophils # (0.04-0.35) X 10*3/uL Hypochromasia (manual) Sodium (135-145) mmol/L Potassium (3.5-5.5) mmol/L Carbon Dioxide (21.6-31.8) mmol/L BUN (9.0-27.0) mg/dL Creatinine (0.6-1.5) mg/dL Est GFR (CKD-EPI) (>=60) BUN/Creatinine Ratio (12.00-20.00) Ratio Calcium (8.7-10.3) mg/dL Magnesium (1.5-2.4) mg/dL TIBC 200 L (228-460) UG/DL Transferrin 143.0 L (204.0-354.0) mg/dL Ferritin 3250.0 H (10.0-291.0) ng/mL AST (13-35) U/L ALT (8-44) U/L Alkaline Phosphatase (41-126) U/L Total Protein (6.2-8.2) g/dL Albumin (3.8-4.9) g/dL Albumin/Globulin Ratio (1.60-3.17) Ratio Amylase (23-121) U/L Lipase (14-63) U/L Crossmatch Assessment and Plan Assessment: 1. Left femoral and popliteal artery occlusive disease status post femorofemoral bypass with CryoVein, left common femoral thromboendarterectomy with patent bypass 2. Large liver mass with metastatic disease throughout the lungs 3. Acute kidney injury 4. History of DVT and pulmonary embolism Plan: 1. Resume Xarelto when cleared by hematology/oncology 2. Left foot/lower extremity chronic disease, status post recent femorofemoral bypass with patent bypass. No further revascularization available. 3. Pain is likely secondary to lower extremity swelling. No surgical intervention planned at this time. 4. Diet as tolerated Thank you for this consultation, we will continue to follow. The impression and plan of care has been dictated as directed. Dr.Giliberto Blunt performed a history and examination of this patient, discussed the same with the dictator. I agree with the dictator's note ,documented as a scribe. Any additional findings or plans will be noted.
--- NOTE | 2023-08-24 14:56 | P.PN ---
Subjective Progress Note Date: 08/24/23 Patient is a 73-year-old female with a past medical history of DVT/PE on anticoagulation, peripheral vascular disease with left leg pain status post femoral to femoral bypass and left common femoral thromboendarterectomy on 08/04/2023, history of cholecystectomy on 07/11/2023 presents to ER with complaints of left lower extremity pain swelling and discoloration. Patient has been having chronic pain which has improved during the last 7 to 10 days. Patient does have history of liver mass and her physician is planning to get PET scan as an outpatient.. Patient has not seen oncology before. Otherwise patient denied any complaints of fever or chills. No nausea vomiting. No diarrhea. No cough or sputum production. No chest pain. EKG showed sinus rhythm. CT of the abdomen pelvis showed post femoral-femoral bypass changes with fluid collection around the graft. 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 Similar infrarenal abdominal aortic aneurysm back to at least 01/04/2023. Measuring 3.7 x 4.4 cm. Laboratory data showed WBC 18.8 hemoglobin 7.1, MCV 88.7 and platelets 473 INR 1.6, sodium 130 potassium 5.2 chloride 100 bicarb is 19 BUN 68, creatinine 2.03 and blood sugar 100 Total bili 1.9 AST 89 ALT 43 and alk phos 428 and albumin 2.5 and lipase level 977 08/24/2023 Patient is seen and evaluated in follow-up today being followed by vascular surgery along with oncology and interventional radiology was consulted for possible biopsy. Patient continued on empiric antibiotics with concerns of possible cellulitis of the lower extremities. Patient evaluated by vascular surgery as patient is recent femoropopliteal bypass and left common femoral thromboendarterectomy with no plans of revascularization interventions at this time. Patient okay to resume anticoagulation once cleared by oncology. Will hold on anticoagulation for now as hemoglobin is low and post 1 unit of PRBCs hemoglobin is 7.7 today. Discussing possible biopsy of the liver and will hold on anticoagulation including holding subcutaneous heparin for now. Interventional radiology consulted and pending. Patient with significant weakness would recommend being evaluated by PT/OT therapy. Overall treatment plan discussed with patient and would like to receive treatment if available. Will discuss further with oncology once biopsy is performed. Review of systems: Constitutional: No reports of fatigue, fever, or chills Cardiovascular: No reports of chest pain or palpitations Respiratory: No reports of shortness of breath or cough GI: No reports of nausea, vomiting, or diarrhea, reports abdominal pain and not much of an appetite : No reports of dysuria or retention Neurovascular: reports of generalized weakness, reports continued lower extremity pain All medications have been reviewed PHYSICAL EXAMINATION: Patient is sitting up in the bed comfortably, elderly appearing, thin built, well-developed, awake alert and oriented.. HEENT: Normocephalic. Neck is supple. Pupils reactive. Nostrils clear. Oral cavity is moist. Neck reveals no JVD, carotid bruits, or thyromegaly. CHEST EXAMINATION: Trachea is central. Symmetrical expansion. Bibasilar diminished sounds. No wheezing. Nonlabored breathing.. CARDIAC: Normal S1, S2 with no gallops. No murmurs ABDOMEN: Soft. Tender on palpation, bowel sounds normal. No organomegaly. No abdominal bruits. Extremities: Bilateral lower extremity swelling with skin dislocation/mottling of the left lower extremity. No clubbing or cyanosis Neurologically awake, alert, oriented x3. Patient is able to move all extremi ties.. No focal deficits noted. diffusely weak Skin: No rash or skin lesions. Cyanosis noted on lower extremities as well as upper extremities, more so on the right hand Psychiatric: Cooperative. Non-suicidal, anxious. Musculoskeletal: No joint swelling or deformity. Normal range of motion. Assessment: Bilateral lower extremity pain, swelling with recent history of femorofemoral bypass and left common femoral thromboendarterectomy Possible bilateral lower extremity cellulitis, present on admission Acute kidney injury likely prerenal Leukocytosis with WBC 18.8, trending down History of DVT/PE and on anticoagulation with Xarelto at home, anticoagulation currently on hold Anemia, likely of chronic disease Mild hyperkalemia 5.2 on admission likely due to SIXTO Large liver mas with metastatic lesions to lung.. Patient is scheduled for outpatient PET scan. Abdominal aortic aneurysm stable from recent study Currently everyday smoker Moderate protein calorie malnutrition with a BMI of 23.4 GI prophylaxis DVT prophylaxis Full code Plan: Patient will be continued on IV hydration with normal saline. Continued on antibiotics for possible underlying cellulitis. Patient does have a leukocytosis with WBC 18.8. White count trending down and 15.65 today Potassium remains elevated at 5.8 and sodium is 130, will give another dose of Lokelma and follow-up on repeat labs. Patient is continued on clear liquids and recommend low potassium diet Vascular surgery was consulted for evaluation. With no plans of revascular intervention. Patient hemoglobin level 6.6. Patient is being transfused with 1 unit of PRBC. Hemoglobin today is 7.7. Will hold on initiating heparin at this time. Oncology following planning on biopsy and interventional radiology was consulted and pending Continue with pain management. Recommend PT/OT therapy evaluation Prognosis is guarded with multiple medical problems and comorbid conditions. Patient currently remains a full code and would like to receive treatment if there are options available. Will wait biopsy and discuss further with oncology. The impression and plan of care has been dictated by Amara Marrero, Nurse Practitioner as directed. Dr. Mikaela MD I have performed a history and examination and MDM of this patient, discussed the same with the dictator, and agree with the dictator's assessment and plan as written ,documented as a scribe. Based on total visit time, I have performed more than 50% of the visit. Objective - Vital Signs Vital signs: Vital Signs Temp 97.4 F L 08/24/23 07:42 Pulse 72 08/24/23 12:10 Resp 16 08/24/23 07:42 BP 118/75 08/24/23 07:42 Pulse Ox 96 08/24/23 07:42 FiO2 Intake & Output 08/23/23 08/24/23 08/24/23 18:59 06:59 18:59 Intake Total 310 830 Output Total 1800 850 Balance -1490 -20 Weight 59.874 kg Intake: Oral 830 Blood Product 310 Rc As-1 Unit 310 [id number] Output: Urine 900 850 Straight 900 450 Post Void Residual 900 Other: Voiding Method Bedpan Bedpan Indwelling Catheter Diaper Diaper # Voids 1 # Bowel Movements 2 - Labs CBC & Chem 7: 08/24/23 06:55 08/24/23 06:55 Labs: Abnormal Lab Results - Last 24 Hours (Table) 08/23/23 08/23/23 08/24/23 Range/Units 13:05 13:45 06:55 WBC 15.65 H (4.50-10.00) X 10*3/uL RBC 2.73 L (4.10-5.20) X 10*6/uL Hgb 7.7 L (12.0-15.0) g/dL Hct 25.2 L (37.2-46.3) % MCHC 30.6 L (32.0-37.0) g/dL RDW 18.1 H (11.5-14.5) % Sodium (135-145) mmol/L Potassium (3.5-5.5) mmol/L Carbon Dioxide (21.6-31.8) mmol/L BUN (9.0-27.0) mg/dL Est GFR (CKD-EPI) (>=60) BUN/Creatinine Ratio (12.00-20.00) Ratio Calcium (8.7-10.3) mg/dL TIBC 200 L (228-460) UG/DL Transferrin 143.0 L (204.0-354.0) mg/dL Ferritin 3250.0 H (10.0-291.0) ng/mL Crossmatch See Detail 08/24/23 Range/Units 06:55 WBC (4.50-10.00) X 10*3/uL RBC (4.10-5.20) X 10*6/uL Hgb (12.0-15.0) g/dL Hct (37.2-46.3) % MCHC (32.0-37.0) g/dL RDW (11.5-14.5) % Sodium 130 L (135-145) mmol/L Potassium 5.8 H (3.5-5.5) mmol/L Carbon Dioxide 20.9 L (21.6-31.8) mmol/L BUN 47.7 H (9.0-27.0) mg/dL Est GFR (CKD-EPI) 37 L (>=60) BUN/Creatinine Ratio 31.80 H (12.00-20.00) Ratio Calcium 8.6 L (8.7-10.3) mg/dL TIBC (228-460) UG/DL Transferrin (204.0-354.0) mg/dL Ferritin (10.0-291.0) ng/mL Crossmatch
[2023-08-24] MEDS: SODIUM ZIRCONIUM CYCLOSILICATE 10 GM PACKET PO ONE (15:06)
[2023-08-25 06:37] LABS: Anisocytosis Slight; Basophils % (A) 0 %; Eosinophils % (A) 0 %; HCT 25.5 % (34.0-46.0); HGB 7.9 gm/dL (11.4-16.0); Hypochromasia Marked; Lymphocytes # (A) 0.6 k/uL (1.0-4.8); Lymphocytes % (A) 5 %; MCH 29.1 pg (25.0-35.0); MCHC 31.1 g/dL (31.0-37.0); MCV 93.5 fL (80.0-100.0); Macrocytosis Slight; Mean Platelet Volume 8.3; Monocytes # (A) 0.4 k/uL (0-1.0); Monocytes % (A) 3 %; Neutrophils # (A) 11.6 k/uL (1.3-7.7); Neutrophils % (A) 91 %; Platelet Count 229 k/uL (150-450); RBC 2.72 m/uL (3.80-5.40); RDW 18.6 % (11.5-15.5); WBC 12.6 k/uL (3.8-10.6)
--- NOTE | 2023-08-25 10:23 | P.PN ---
Subjective Progress Note Date: 08/25/23 Principal diagnosis: Peripheral arterial disease Patient seen. No acute changes. Awaiting liver biopsy and further recommendations from oncology. Objective - Vital Signs Vital signs: Vital Signs Temp 97.6 F 08/25/23 08:56 Pulse 70 08/25/23 09:50 Resp 18 08/25/23 09:50 BP 107/68 08/25/23 09:50 Pulse Ox 94 L 08/25/23 09:50 FiO2 Intake & Output 08/24/23 08/25/23 08/25/23 18:59 06:59 18:59 Intake Total 540 540 0 Output Total 525 1000 Balance 15 -460 0 Intake: Oral 540 540 0 Output: Urine 525 1000 Other: Voiding Method Indwelling Catheter Indwelling Catheter # Voids 0 # Bowel Movements 0 - Exam General appearance: The patient is alert, oriented, appears in no acute distress. HET: Head is normocephalic and atraumatic. Pupils are equal and reactive. Neck: Supple. Heart: Regular. Lungs: Equal expansion, normal respiratory effort. Abdomen: Soft, hepatomegaly, firm, enlarged liver mass, tender, nondistended. Extremities: Bilateral lower extremity swelling. Left toes purple, mottled. Toes cool to the touch however left lower extremity otherwise warm to the touch. Patent bypass graft. Neurological: No focal deficits. - Labs CBC & Chem 7: 08/25/23 06:06 08/24/23 06:55 Labs: Abnormal Lab Results - Last 24 Hours (Table) 08/24/23 08/24/23 08/25/23 Range/Units 06:55 06:55 06:06 WBC 15.65 H 12.6 H (4.50-10.00) X 10*3/uL RBC 2.73 L 2.72 L (4.10-5.20) X 10*6/uL Hgb 7.7 L 7.9 L (12.0-15.0) g/dL Hct 25.2 L 25.5 L (37.2-46.3) % MCHC 30.6 L (32.0-37.0) g/dL RDW 18.1 H 18.6 H (11.5-14.5) % Neutrophils # 11.6 H (1.3-7.7) k/uL Lymphocytes # 0.6 L (1.0-4.8) k/uL Sodium 130 L (135-145) mmol/L Potassium 5.8 H (3.5-5.5) mmol/L Carbon Dioxide 20.9 L (21.6-31.8) mmol/L BUN 47.7 H (9.0-27.0) mg/dL Est GFR (CKD-EPI) 37 L (>=60) BUN/Creatinine Ratio 31.80 H (12.00-20.00) Ratio Calcium 8.6 L (8.7-10.3) mg/dL Assessment and Plan Assessment: 1. Left femoral and popliteal artery occlusive disease status post femorofemoral bypass with CryoVein, left common femoral thromboendarterectomy with patent bypass 2. Large liver mass with metastatic disease throughout the lungs 3. Acute kidney injury 4. History of DVT and pulmonary embolism Plan: 1. Resume Xarelto when cleared by hematology/oncology 2. Left foot/lower extremity chronic disease, status post recent femorofemoral bypass with patent bypass. No further revascularization available. 3. Pain is likely secondary to lower extremity swelling. No surgical intervent ion planned at this time. 4. Diet as tolerated Thank you for this consultation, we will continue to follow. The impression and plan of care has been dictated as directed. I performed a history and examination of this patient, discussed the same with the dictator. I agree with the dictator's note ,documented as a scribe. Any additional findings or plans will be noted.
[2023-08-25 10:40] LABS: African American GFR (CKD) 46 (>60 ml/min/1.73 sqM); Anion Gap 6 mmol/L; Blood Urea Nitrogen 36 mg/dL (7-17); Calcium 8.1 mg/dL (8.4-10.2); Carbon Dioxide 21 mmol/L (22-30); Chloride 101 mmol/L (98-107); Glucose 98 mg/dL (74-99); Non-African American GFR(CKD) 40 (>60 ml/min/1.73 sqM); Potassium 4.4 mmol/L (3.5-5.1); Sodium 128 mmol/L (137-145)
--- NOTE | 2023-08-25 11:08 | US ---
EXAMINATION TYPE: US biopsy liver DATE OF EXAM: 08/25/2023 9:45 AM CLINICAL INDICATION:Female, 73 years old with history of Liver mass; COMPARISON: None CT DLP: mGycm, Automated exposure control for dose reduction was used. Contrast used: mL of , none Oral contrast used: none ATTENDING: Dr. Brian Thurman TECHNIQUE: Ultrasound-guided biopsy of liver mass. FINDINGS: The procedure was explained to the patient including risks of bleeding, bruising, infection, damage t o nearby organs and need for additional therapy including potential surgery. All questions were answ ered and consent was obtained. The previous studies were reviewed. The patient was placed on the ultrasound suite in the supine pos ition. The overlying skin was marked and prepped using sterile method. Timeout was taken per patsy tenorio. Following local anesthesia a 18 gauge coaxial needle was introduced on the mass. The coaxial need le tip was directed into the mass with ultrasound guidance. 2 x 18 gauge coaxial biopsies were then o btained. Following the procedure the needle was removed and sterile dressing was applied to the percu taneous site. Patient was taken for postprocedure observation in stable condition. IMPRESSIONS: Status post ultrasound-guided percutaneous liver mass biopsy as described above. Pathology results pe yazing.
--- NOTE | 2023-08-25 15:04 | P.PN ---
Subjective Progress Note Date: 08/25/23 No acute events. S/p liver biopsy this morning, tolerated procedure well. Denies n/v. Tolerating oral intake. Hgb 7.9, plts 229,000. Objective - Vital Signs Vital signs: Vital Signs Temp 98.3 F 08/25/23 12:45 Pulse 79 08/25/23 12:45 Resp 16 08/25/23 12:45 BP 94/63 08/25/23 12:45 Pulse Ox 98 08/25/23 12:45 FiO2 Intake & Output 08/24/23 08/25/23 08/25/23 18:59 06:59 18:59 Intake Total 540 540 0 Output Total 525 1000 Balance 15 -460 0 Weight 59.874 kg Intake: Oral 540 540 0 Output: Urine 525 1000 Other: Voiding Method Indwelling Catheter Indwelling Catheter Indwelling Catheter # Voids 0 # Bowel Movements 0 - Constitutional General appearance: Present: average body habitus, no acute distress - EENT Eyes: Present: anicteric sclerae, EOMI ENT: Present: hearing grossly normal - Respiratory Details: breathing even and unlabored - Peripheral edema leg Peripheral Edema: left: 3+ (LLE cool to touch, decreased sensation, toe discoloration ) - Gastrointestinal General gastrointestinal: Present: hepatomegaly, tenderness Localized gastrointestinal: tender: RUQ - Integumentary Integumentary: Present: pale. Absent: cyanotic - Psychiatric Psychiatric: Present: A&O x's 3 - Labs CBC & Chem 7: 08/25/23 06:06 08/25/23 10:01 Labs: Abnormal Lab Results - Last 24 Hours (Table) 08/23/23 08/25/23 08/25/23 Range/Units 19:00 06:06 10:01 WBC 12.6 H (3.8-10.6) k/uL RBC 2.72 L (3.80-5.40) m/uL Hgb 7.9 L (11.4-16.0) gm/dL Hct 25.5 L (34.0-46.0) % RDW 18.6 H (11.5-15.5) % Neutrophils # 11.6 H (1.3-7.7) k/uL Lymphocytes # 0.6 L (1.0-4.8) k/uL Sodium 128 L (137-145) mmol/L Carbon Dioxide 21 L (22-30) mmol/L BUN 36 H (7-17) mg/dL Creatinine 1.34 H (0.52-1.04) mg/dL Calcium 8.1 L (8.4-10.2) mg/dL RBC Folate 1,050 H (280 - 791) ng/mL Assessment and Plan (1) Abdominal mass Current Visit: Yes Status: Acute Priority: High Code(s): R19.00 - INTRA- ABD AND PELVIC SWELLING, MASS AND LUMP, UNSP SITE SNOMED Code(s): 042712512 (2) Acute kidney injury Current Visit: Yes Status: Acute Priority: High Code(s): N17.9 - ACUTE KIDNEY FAILURE, UNSPECIFIED SNOMED Code(s): 77554104 (3) Leg pain Current Visit: Yes Status: Acute Priority: High Code(s): M79.606 - PAIN IN LEG, UNSPECIFIED SNOMED Code(s): 40030937 (4) Deep vein thrombosis (DVT) of lower extremity Current Visit: No Status: Acute Priority: Medium Code(s): I82.409 - ACUTE EMBOLISM AND THOMBOS UNSP DEEP VN UNSP LOWER EXTREMITY SNOMED Code(s): 125599679 (5) Anemia Current Visit: Yes Status: Acute Priority: High Code(s): D64.9 - ANEMIA, UNSPECIFIED SNOMED Code(s): 191417268 Plan: Liver mass, metastatic disease: -Newly diagnosed suspected metastatic liver cancer. She was recently referred to Dr Ad Gruber for evaluation for liver mass, but has yet to establish care. Patient had CT abdomen with contrast on 07/21/2023 which revealed 10 x 14 cm ill- defined mass in the left liver that was not present on CTA abdomen on 01/04/2023. PET CT was scheduled but has yet to be obtained. -Upon admission CT abdomen pelvis without contrast revealed post femoral bypass changes with fluid collection around graft. New large hepatic mass measuring 18.1 x 12.5 cm with metastatic disease throughout the lungs. -Tumor markers ordered, AFP, CEA, and Ca 19-9 normal. S/p liver biopsy, path p ending Anemia: -Upon admission CBC revealed WBC 18.8, hemoglobin 7.1, platelets 473,000. S/p 1 unit PRBCs for hemoglobin 6.6. Hgb 7.9 today. Upon trending labs, hemoglobin normal at 13.0 approx 5 weeks ago. Pt denies any episodes of acute bleeding or melena -Anemia workup obtained -No nutritional deficiencies noted, MMA still pending. Anemia labs consistent with anemia of inflammation -Please transfuse for hgb < 7 or if symptomatic -CBC daily DVT hx/leg pain -Underwent bypass with CryoVein on 08/04/2023 and left common femoral thromboendarterectomy for left femoral and popliteal arterial occlusive disease. 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 Doppler of bilateral lower extremities on 07/27/2023 revealed chronic appearing deep vein thrombosis within the left popliteal vein and left great saphenous vein. No acute DVT noted bilaterally -Vascular surgery following -Case discussed with vascular team today. Patient is not a candidate for revasc ularization of LLE. Biopsy obtained today. From our standpoint, pt can be restarted on antcoagulation. Xarelto restarted
[2023-08-25] MEDS: RIVAROXABAN 20 MG TAB PO SCH (17:50)
--- NOTE | 2023-08-26 09:10 | P.PN ---
Subjective Progress Note Date: 08/25/23 Patient is a 73-year-old female with a past medical history of DVT/PE on anticoagulation, peripheral vascular disease with left leg pain status post femoral to femoral bypass and left common femoral thromboendarterectomy on 08/04/2023, history of cholecystectomy on 07/11/2023 presents to ER with complaints of left lower extremity pain swelling and discoloration. Patient has been having chronic pain which has improved during the last 7 to 10 days. Patient does have history of liver mass and her physician is planning to get PET scan as an outpatient.. Patient has not seen oncology before. Otherwise patient denied any complaints of fever or chills. No nausea vomiting. No diarrhea. No cough or sputum production. No chest pain. EKG showed sinus rhythm. CT of the abdomen pelvis showed post femoral-femoral bypass changes with fluid collection around the graft. 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 Similar infrarenal abdominal aortic aneurysm back to at least 01/04/2023. Measuring 3.7 x 4.4 cm. Laboratory data showed WBC 18.8 hemoglobin 7.1, MCV 88.7 and platelets 473 INR 1.6, sodium 130 potassium 5.2 chloride 100 bicarb is 19 BUN 68, creatinine 2.03 and blood sugar 100 Total bili 1.9 AST 89 ALT 43 and alk phos 428 and albumin 2.5 and lipase level 977 08/24/2023 Patient is seen and evaluated in follow-up today being followed by vascular surgery along with oncology and interventional radiology was consulted for possible biopsy. Patient continued on empiric antibiotics with concerns of possible cellulitis of the lower extremities. Patient evaluated by vascular surgery as patient is recent femoropopliteal bypass and left common femoral thromboendarterectomy with no plans of revascularization interventions at this time. Patient okay to resume anticoagulation once cleared by oncology. Will hold on anticoagulation for now as hemoglobin is low and post 1 unit of PRBCs hemoglobin is 7.7 today. Discussing possible biopsy of the liver and will hold on anticoagulation including holding subcutaneous heparin for now. Interventional radiology consulted and pending. Patient with significant weakness would recommend being evaluated by PT/OT therapy. Overall treatment plan discussed with patient and would like to receive treatment if available. Will discuss further with oncology once biopsy is performed. 08/25/2023 Patient is seen in follow-up today currently n.p.o. scheduled to undergo ultrasound for possible liver biopsy with interventional radiology. Patient maintained on antibiotics as severe and patient is maintained on Dilaudid. Will also add [place] for breakthrough pain as patient reports 10/10 on the pain scale. Vascular surgery evaluated the patient with no plans of revascularization or surgical intervention on that left lower extremity. No contraindication to resume anticoagulation and Xarelto is being resumed. Patient is afebrile with no reports of chest pain or shortness of breath. Patient is currently wearing 2 L although does not normally wear oxygen outpatient. Encouraged oral intake and increased activity as tolerated. Patient to undergo biopsy and awaiting pathology as there is concerns of metastasis from the lungs as well. Overall prognosis is poor and guarded left at this time. Review of systems: Constitutional: No reports of fatigue, fever, or chills Cardiovascular: No reports of chest pain or palpitations Respiratory: No reports of shortness of breath or cough GI: No reports of nausea, vomiting, or diarrhea, reports abdominal pain and not much of an appetite : No reports of dysuria or retention Neurovascular: reports of generalized weakness, reports continued left lower extremity pain All medications have been reviewed PHYSICAL EXAMINATION: Patient is sitting up in the bed , elderly appearing, thin built, well- developed, awake alert and oriented.. HEENT: Normocephalic. Neck is supple. Pupils reactive. Nostrils clear. Oral cavity is moist. Neck reveals no JVD, carotid bruits, or thyromegaly. CHEST EXAMINATION: Trachea is central. Symmetrical expansion. Bibasilar diminis hed sounds. No wheezing. Nonlabored breathing.. CARDIAC: Normal S1, S2 with no gallops. No murmurs ABDOMEN: Soft. Tender on palpation, bowel sounds normal. No organomegaly. No abdominal bruits. Extremities: Bilateral lower extremity swelling with skin dislocation/mottling of the left lower extremity. cyanosis noted of the toes with significant swelling and is severe pain 10/10 on light palpation Neurologically awake, alert, oriented x3. Patient is able to move all extremities.. No focal deficits noted. diffusely weak Skin: No rash or skin lesions. Cyanosis noted on lower extremities as well as upper extremities, more so on the right hand Psychiatric: Cooperative. Non-suicidal, anxious. Musculoskeletal: No joint swelling or deformity. Normal range of motion. Assessment: Bilateral lower extremity pain, swelling with recent history of femorofemoral bypass and left common femoral thromboendarterectomy Possible bilateral lower extremity cellulitis, present on admission Acute kidney injury likely prerenal, trending down Leukocytosis with WBC 18.8, trending down History of DVT/PE and on anticoagulation with Xarelto at home, anticoagulation being resumed Anemia, likely of chronic disease Hyponatremia secondary to poor oral intake Mild hyperkalemia 5.2 on admission likely due to SIXTO Large liver mass with metastatic lesions to lung.. Patient is scheduled for outpatient PET scan. Status post liver biopsy today 08/25/2023 Abdominal aortic aneurysm stable from recent study Currently everyday smoker Moderate protein calorie malnutrition with a BMI of 23.4 GI prophylaxis DVT prophylaxis Full code Plan: Patient will be continued on IV hydration with normal saline. Continued on antibiotics for possible underlying cellulitis. Patient does have a leukocytosis with WBC 18.8. White count trending down follow-up with repeat labs Potassium slightly improved at 4.4 although sodium remains low. Encouraged oral intake as patient is not eating very well. Will advance diet as patient was continued on clear liquids Vascular surgery evaluated the patient with no plans of revascular intervention. Recommending resuming anticoagulation Oncology following status post biopsy and pending pathology. Await results to determine treatment plan moving forward Continue with pain management. Patient continues to report severe pain with Dilaudid and will add [place] as well as needed Recommend PT/OT therapy evaluation Prognosis is guarded with multiple medical problems and comorbid conditions. Patient currently remains a full code and would like to receive treatment if there are options available. Will wait biopsy and discuss further with oncology. The impression and plan of care has been dictated by Amara Marrero, Nurse Practitioner as directed. Dr. Mikaela MD I have performed a history and examination and MDM of this patient, discussed the same with the dictator, and agree with the dictator's assessment and plan as written ,documented as a scribe. Based on total visit time, I have performed more than 50% of the visit. In the form of cefazolin with concerns of cellulitis of the lower extremities. Left lower extremity pain Objective - Vital Signs Vital signs: Vital Signs Temp 97.6 F 08/25/23 08:56 Pulse 77 08/25/23 09:23 Resp 18 08/25/23 09:23 BP 112/70 08/25/23 09:23 Pulse Ox 94 L 08/25/23 09:23 FiO2 Intake & Output 08/24/23 08/25/23 08/25/23 18:59 06:59 18:59 Intake Total 540 540 0 Output Total 525 1000 Balance 15 -460 0 Intake: Oral 540 540 0 Output: Urine 525 1000 Other: Voiding Method Indwelling Catheter Indwelling Catheter # Voids 0 # Bowel Movements 0 - Labs CBC & Chem 7: 08/25/23 06:06 08/25/23 10:01 Labs: Abnormal Lab Results - Last 24 Hours (Table) 08/24/23 08/24/23 08/25/23 Range/Units 06:55 06:55 06:06 WBC 15.65 H 12.6 H (4.50-10.00) X 10*3/uL RBC 2.73 L 2.72 L (4.10-5.20) X 10*6/uL Hgb 7.7 L 7.9 L (12.0-15.0) g/dL Hct 25.2 L 25.5 L (37.2-46.3) % MCHC 30.6 L (32.0-37.0) g/dL RDW 18.1 H 18.6 H (11.5-14.5) % Neutrophils # 11.6 H (1.3-7.7) k/uL Lymphocytes # 0.6 L (1.0-4.8) k/uL Sodium 130 L (135-145) mmol/L Potassium 5.8 H (3.5-5.5) mmol/L Carbon Dioxide 20.9 L (21.6-31.8) mmol/L BUN 47.7 H (9.0-27.0) mg/dL Est GFR (CKD-EPI) 37 L (>=60) BUN/Creatinine Ratio 31.80 H (12.00-20.00) Ratio Calcium 8.6 L (8.7-10.3) mg/dL
[2023-08-26 10:08] LABS: Anisocytosis Slight; Basophils % (A) 0 %; Eosinophils % (A) 0 %; HCT 25.3 % (34.0-46.0); HGB 7.7 gm/dL (11.4-16.0); Hypochromasia Marked; Lymphocytes # (A) 0.5 k/uL (1.0-4.8); Lymphocytes % (A) 4 %; MCHC 30.3 g/dL (31.0-37.0); MCV 95.8 fL (80.0-100.0); Macrocytosis Slight; Mean Platelet Volume 9.2; Monocytes # (A) 0.5 k/uL (0-1.0); Monocytes % (A) 4 %; Neutrophils # (A) 12.4 k/uL (1.3-7.7); Neutrophils % (A) 92 %; Platelet Count 217 k/uL (150-450); RBC 2.64 m/uL (3.80-5.40); WBC 13.4 k/uL (3.8-10.6)
[2023-08-26 10:20] LABS: African American GFR (CKD) 72 (>60 ml/min/1.73 sqM); Anion Gap 5 mmol/L; Blood Urea Nitrogen 25 mg/dL (7-17); Calcium 7.8 mg/dL (8.4-10.2); Carbon Dioxide 24 mmol/L (22-30); Chloride 101 mmol/L (98-107); Glucose 107 mg/dL (74-99); Magnesium 2.2 mg/dL (1.6-2.3); Non-African American GFR(CKD) 63 (>60 ml/min/1.73 sqM); Potassium 3.5 mmol/L (3.5-5.1); Sodium 130 mmol/L (137-145)
[2023-08-26] MEDS: POTASSIUM CHLORIDE ER 20 MEQ TAB.ER PO STA (16:59)
[2023-08-26] MEDS: HYDROcodone/APAP 5-325MG 1 EACH TAB PO PRN (17:03)
[2023-08-26 17:38] LABS: Methylmalonic Acid 0.47 umol/L (<0.40)
[2023-08-27 09:25] LABS: Basophils # (A) 0.01 X 10*3/uL (0.00-0.10); Basophils % (A) 0.1 %; Eosinophils # (A) 0.05 X 10*3/uL (0.04-0.35); Eosinophils % (A) 0.4 %; HCT 22.9 % (37.2-46.3); HGB 6.9 g/dL (12.0-15.0); Lymphocytes # (A) 0.62 X 10*3/uL (0.90-5.00); Lymphocytes % (A) 4.8 %; MCH 27.7 pg (27.0-32.0); MCHC 30.1 g/dL (32.0-37.0); Mean Platelet Volume 9.8 FL (9.5-12.2); Monocytes # (A) 0.85 X 10*3/uL (0.20-1.00); Monocytes % (A) 6.6 %; NRBC Per 100 WBC 0 X 10*3/uL (0.00-0.01); Neutrophils # (A) 11.23 X 10*3/uL (1.80-7.70); Neutrophils % (A) 87.2 %; Platelet Count 218 X 10*3/uL (140-440); RBC 2.49 X 10*6/uL (4.10-5.20); RDW 19.5 % (11.5-14.5); WBC 12.88 X 10*3/uL (4.50-10.00)
[2023-08-27 09:33] LABS: Calcium 8.1 mg/dL (8.7-10.3); Carbon Dioxide 23.5 mmol/L (21.6-31.8); Chloride 103 mmol/L (96-109); Glucose 96 mg/dL (70-110); Potassium 4.3 mmol/L (3.5-5.5); Sodium 134 mmol/L (135-145)
[2023-08-27 20:44] LABS: Glucose,Whole Blood 124 mg/dL (70-110)
--- NOTE | 2023-08-28 01:52 | P.PN ---
Subjective Progress Note Date: 08/26/23 Patient is a 73-year-old female with a past medical history of DVT/PE on anticoagulation, peripheral vascular disease with left leg pain status post femoral to femoral bypass and left common femoral thromboendarterectomy on 08/04/2023, history of cholecystectomy on 07/11/2023 presents to ER with complaints of left lower extremity pain swelling and discoloration. Patient has been having chronic pain which has improved during the last 7 to 10 days. Patient does have history of liver mass and her physician is planning to get PET scan as an outpatient.. Patient has not seen oncology before. Otherwise patient denied any complaints of fever or chills. No nausea vomiting. No diarrhea. No cough or sputum production. No chest pain. EKG showed sinus rhythm. CT of the abdomen pelvis showed post femoral-femoral bypass changes with fluid collection around the graft. 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 Similar infrarenal abdominal aortic aneurysm back to at least 01/04/2023. Measuring 3.7 x 4.4 cm. Laboratory data showed WBC 18.8 hemoglobin 7.1, MCV 88.7 and platelets 473 INR 1.6, sodium 130 potassium 5.2 chloride 100 bicarb is 19 BUN 68, creatinine 2.03 and blood sugar 100 Total bili 1.9 AST 89 ALT 43 and alk phos 428 and albumin 2.5 and lipase level 977 08/24/2023 Patient is seen and evaluated in follow-up today being followed by vascular surgery along with oncology and interventional radiology was consulted for possible biopsy. Patient continued on empiric antibiotics with concerns of possible cellulitis of the lower extremities. Patient evaluated by vascular surgery as patient is recent femoropopliteal bypass and left common femoral thromboendarterectomy with no plans of revascularization interventions at this time. Patient okay to resume anticoagulation once cleared by oncology. Will hold on anticoagulation for now as hemoglobin is low and post 1 unit of PRBCs hemoglobin is 7.7 today. Discussing possible biopsy of the liver and will hold on anticoagulation including holding subcutaneous heparin for now. Interventional radiology consulted and pending. Patient with significant weakness would recommend being evaluated by PT/OT therapy. Overall treatment plan discussed with patient and would like to receive treatment if available. Will discuss further with oncology once biopsy is performed. 08/25/2023 Patient is seen in follow-up today currently n.p.o. scheduled to undergo ultrasound for possible liver biopsy with interventional radiology. Patient maintained on antibiotics as severe and patient is maintained on Dilaudid. Will also add [place] for breakthrough pain as patient reports 10/10 on the pain scale. Vascular surgery evaluated the patient with no plans of revascularization or surgical intervention on that left lower extremity. No contraindication to resume anticoagulation and Xarelto is being resumed. Patient is afebrile with no reports of chest pain or shortness of breath. Patient is currently wearing 2 L although does not normally wear oxygen outpatient. Encouraged oral intake and increased activity as tolerated. Patient to undergo biopsy and awaiting pathology as there is concerns of metastasis from the lungs as well. Overall prognosis is poor and guarded left at this time. 08/26/2023 Patient is resting in the bed. Awake alert and oriented x 3. No complaints of chest pain or shortness of breath. Patient still having left lower extremity discoloration of the toes. Swelling is about the same. Right lower extremity swelling did improve. Patient is s/p liver biopsy. Continued on anticoagulation with Xarelto. Patient is on antibiotics, cefazolin. Laboratory showed WBC 13.4 hemoglobin 7.7 and platelets 217 Sodium 130 potassium 3.5 chloride 101 bicarb is 24 BUN 25 and creatinine 0.93 and blood sugar 103 and calcium 7.8 and magnesium 2.2 Medications reviewed. Review of systems: Constitutional: No reports of fatigue, fever, or chills Cardiovascular: No reports of chest pain or palpitations Respiratory: No reports of shortness of breath or cough GI: No reports of nausea, vomiting, or diarrhea, reports abdominal pain and not much of an appetite : No reports of dysuria or retention Neurovascular: reports of generalized weakness, reports continued left lower extremity pain All medications have been reviewed PHYSICAL EXAMINATION: Patient is sitting up in the bed , elderly appearing, thin built, well- developed, awake alert and oriented.. HEENT: Normocephalic. Neck is supple. Pupils reactive. Nostrils clear. Oral cavity is moist. Neck reveals no JVD, carotid bruits, or thyromegaly. CHEST EXAMINATION: Trachea is central. Symmetrical expansion. Bibasilar diminished sounds. No wheezing. Nonlabored breathing.. CARDIAC: Normal S1, S2 with no gallops. No murmurs ABDOMEN: Soft. Tender on palpation, bowel sounds normal. No organomegaly. No abdominal bruits. Extremities: Bilateral lower extremity swelling with skin dislocation/mottling of the left lower extremity. cyanosis noted of the toes with significant swelling and is severe pain 10/10 on light palpation Neurologically awake, alert, oriented x3. Patient is able to move all extremities.. No focal deficits noted. diffusely weak Skin: No rash or skin lesions. Cyanosis noted on lower extremities as well as upper extremities, more so on the right hand Psychiatric: Cooperative. Non-suicidal, anxious. Musculoskeletal: No joint swelling or deformity. Normal range of motion. Assessment: Bilateral lower extremity pain, swelling with recent history of femorofemoral bypass and left common femoral thromboendarterectomy Possible bilateral lower extremity cellulitis, present on admission Acute kidney injury likely prerenal, trending down Leukocytosis with WBC 18.8, trending down History of DVT/PE and on anticoagulation with Xarelto at home, anticoagulation being resumed Anemia, likely of chronic disease Hyponatremia secondary to poor oral intake Mild hyperkalemia 5.2 on admission likely due to SIXTO Large liver mass with metastatic lesions to lung.. Patient is scheduled for outpatient PET scan. Status post liver biopsy today 08/25/2023 Abdominal aortic aneurysm stable from recent study Currently everyday smoker Moderate protein calorie malnutrition with a BMI of 23.4 GI prophylaxis DVT prophylaxis Full code Plan: does Patient will be continued on IV hydration with normal saline. Continued on antibiotics for possible underlying cellulitis. Patient Did a leukocytosis with WBC 18.8. White count trending down follow-up with repeat labs Potassium replaced 3.. Encouraged oral intake as patient is not eating very well. Will advance diet as patient was continued on clear liquids Vascular surgery evaluated the patient with no plans of revascular intervention. Recommending resuming anticoagulation Oncology following status post biopsy and pending pathology. Await results to determine treatment plan moving forward Continue with pain management. Patient continues to report severe pain with Dilaudid and will add [place] as well as needed Recommend PT/OT therapy evaluation Prognosis is guarded with multiple medical problems and comorbid conditions. Patient currently remains a full code and would like to receive treatment if there are options available. Will wait biopsy and discuss further with oncology. Objective - Vital Signs Vital signs: Vital Signs Temp 98.9 F 08/26/23 19:45 Pulse 69 08/26/23 19:45 Resp 18 08/26/23 19:45 BP 93/58 08/26/23 19:45 Pulse Ox 97 08/26/23 19:45 FiO2 Intake & Output 08/26/23 08/26/23 08/27/23 06:59 18:59 06:59 Output Total 1000 1400 Balance -1000 -1400 Output: Urine 1000 1400 Other: Voiding Method Indwelling Catheter Indwelling Catheter - Labs CBC & Chem 7: 08/27/23 06:03 08/27/23 06:03 Labs: Abnormal Lab Results - Last 24 Hours (Table) 08/23/23 08/26/23 08/26/23 Range/Units 19:00 09:48 09:48 WBC 13.4 H (3.8-10.6) k/uL RBC 2.64 L (3.80-5.40) m/uL Hgb 7.7 L (11.4-16.0) gm/dL Hct 25.3 L (34.0-46.0) % MCHC 30.3 L (31.0-37.0) g/dL RDW 19.0 H (11.5-15.5) % Neutrophils # 12.4 H (1.3-7.7) k/uL Lymphocytes # 0.5 L (1.0-4.8) k/uL Sodium 130 L (137-145) mmol/L BUN 25 H (7-17) mg/dL Glucose 107 H (74-99) mg/dL Calcium 7.8 L (8.4-10.2) mg/dL Methylmalonic Acid 0.47 H (<0.40) umol/L
--- NOTE | 2023-08-28 01:54 | P.PN ---
Subjective Progress Note Date: 08/27/23 Patient is a 73-year-old female with a past medical history of DVT/PE on anticoagulation, peripheral vascular disease with left leg pain status post femoral to femoral bypass and left common femoral thromboendarterectomy on 08/04/2023, history of cholecystectomy on 07/11/2023 presents to ER with complaints of left lower extremity pain swelling and discoloration. Patient has been having chronic pain which has improved during the last 7 to 10 days. Patient does have history of liver mass and her physician is planning to get PET scan as an outpatient.. Patient has not seen oncology before. Otherwise patient denied any complaints of fever or chills. No nausea vomiting. No diarrhea. No cough or sputum production. No chest pain. EKG showed sinus rhythm. CT of the abdomen pelvis showed post femoral-femoral bypass changes with fluid collection around the graft. 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 Similar infrarenal abdominal aortic aneurysm back to at least 01/04/2023. Measuring 3.7 x 4.4 cm. Laboratory data showed WBC 18.8 hemoglobin 7.1, MCV 88.7 and platelets 473 INR 1.6, sodium 130 potassium 5.2 chloride 100 bicarb is 19 BUN 68, creatinine 2.03 and blood sugar 100 Total bili 1.9 AST 89 ALT 43 and alk phos 428 and albumin 2.5 and lipase level 977 08/24/2023 Patient is seen and evaluated in follow-up today being followed by vascular surgery along with oncology and interventional radiology was consulted for possible biopsy. Patient continued on empiric antibiotics with concerns of possible cellulitis of the lower extremities. Patient evaluated by vascular surgery as patient is recent femoropopliteal bypass and left common femoral thromboendarterectomy with no plans of revascularization interventions at this time. Patient okay to resume anticoagulation once cleared by oncology. Will hold on anticoagulation for now as hemoglobin is low and post 1 unit of PRBCs hemoglobin is 7.7 today. Discussing possible biopsy of the liver and will hold on anticoagulation including holding subcutaneous heparin for now. Interventional radiology consulted and pending. Patient with significant weakness would recommend being evaluated by PT/OT therapy. Overall treatment plan discussed with patient and would like to receive treatment if available. Will discuss further with oncology once biopsy is performed. 08/25/2023 Patient is seen in follow-up today currently n.p.o. scheduled to undergo ultrasound for possible liver biopsy with interventional radiology. Patient maintained on antibiotics as severe and patient is maintained on Dilaudid. Will also add [place] for breakthrough pain as patient reports 10/10 on the pain scale. Vascular surgery evaluated the patient with no plans of revascularization or surgical intervention on that left lower extremity. No contraindication to resume anticoagulation and Xarelto is being resumed. Patient is afebrile with no reports of chest pain or shortness of breath. Patient is currently wearing 2 L although does not normally wear oxygen outpatient. Encouraged oral intake and increased activity as tolerated. Patient to undergo biopsy and awaiting pathology as there is concerns of metastasis from the lungs as well. Overall prognosis is poor and guarded left at this time. 08/26/2023 Patient is resting in the bed. Awake alert and oriented x 3. No complaints of chest pain or shortness of breath. Patient still having left lower extremity discoloration of the toes. Swelling is about the same. Right lower extremity swelling did improve. Patient is s/p liver biopsy. Continued on anticoagulation with Xarelto. Patient is on antibiotics, cefazolin. Laboratory showed WBC 13.4 hemoglobin 7.7 and platelets 217 Sodium 130 potassium 3.5 chloride 101 bicarb is 24 BUN 25 and creatinine 0.93 and blood sugar 103 and calcium 7.8 and magnesium 2.2 08/27/2023 Patient is resting in the bed. Awake alert and oriented x 3. No nausea vomiting abdominal pain or diarrhea. Currently on room air. Still having left lower extremity discoloration of the toes and swelling. Hemoglobin 6.9 this morning and is being transfused with 1 unit of PRBC Other laboratory data showed WBC trending down to 12.8 hemoglobin 6.9 and platelets 218 sodium 134 potassium 4.3 chloride 103 bicarb is 23.5 BUN 19 and creatinine 1.0 and blood sugar 96 and calcium 8.1. Patient is on anticoagulation with Xarelto and also antibiotics cefazolin. Pain is controlled. Medications reviewed. Review of systems: Constitutional: No reports of fatigue, fever, or chills Cardiovascular: No reports of chest pain or palpitations Respiratory: No reports of shortness of breath or cough GI: No reports of nausea, vomiting, or diarrhea, reports abdominal pain and not much of an appetite : No reports of dysuria or retention Neurovascular: reports of generalized weakness, reports continued left lower extremity pain All medications have been reviewed PHYSICAL EXAMINATION: Patient is sitting up in the bed , elderly appearing, thin built, well- developed, awake alert and oriented.. HEENT: Normocephalic. Neck is supple. Pupils reactive. Nostrils clear. Oral cavity is moist. Neck reveals no JVD, carotid bruits, or thyromegaly. CHEST EXAMINATION: Trachea is central. Symmetrical expansion. Bibasilar diminished sounds. No wheezing. Nonlabored breathing.. CARDIAC: Normal S1, S2 with no gallops. No murmurs ABDOMEN: Soft. Tender on palpation, bowel sounds normal. No organomegaly. No abdominal bruits. Extremities: Bilateral lower extremity swelling with skin dislocation/mottling of the left lower extremity. cyanosis noted of the toes with significant swelling and is severe pain 10/10 on light palpation Neurologically awake, alert, oriented x3. Patient is able to move all extremities.. No focal deficits noted. diffusely weak Skin: No rash or skin lesions. Cyanosis noted on lower extremities as well as upper extremities, more so on the right hand Psychiatric: Cooperative. Non-suicidal, anxious. Musculoskeletal: No joint swelling or deformity. Normal range of motion. Assessment: Bilateral lower extremity pain, swelling with recent history of femorofemoral bypass and left common femoral thromboendarterectomy Possible bilateral lower extremity cellulitis, present on admission Acute kidney injury likely prerenal, trending down Leukocytosis with WBC 18.8, trending down History of DVT/PE and on anticoagulation with Xarelto at home, anticoagulation being resumed Anemia, likely of chronic disease Hyponatremia secondary to poor oral intake Mild hyperkalemia 5.2 on admission likely due to SIX[place] Large liver mass with metastatic lesions to lung.. Patient is scheduled for outpatient PET scan. Status post liver biopsy today 08/25/2023 Abdominal aortic aneurysm stable from recent study Currently everyday smoker Moderate protein calorie malnutrition with a BMI of 23.4 GI prophylaxis DVT prophylaxis on Xarelto Full code Plan: does Patient will be continued on IV hydration with normal saline. Continued on antibiotics for possible underlying cellulitis. Patient Did a leukocytosis with WBC 18.8. White count trending down follow-up with repeat labs Potassium replaced 3.. Encouraged oral intake as patient is not eating very well. Will advance diet as patient was continued on clear liquids Vascular surgery evaluated the patient with no plans of revascular intervention. Recommending resuming anticoagulation Oncology following status post biopsy and pending pathology. Await results to determine treatment plan moving forward Continue with pain management. Patient continues to report severe pain with Dilaudid and will add [place] as well as needed Recommend PT/OT therapy evaluation Prognosis is guarded with multiple medical problems and comorbid conditions. Patient currently remains a full code and would like to receive treatment if there are options available. Will wait biopsy and discuss further with oncology. Objective - Vital Signs Vital signs: Vital Signs Temp 98.3 F 08/27/23 18:22 Pulse 66 08/27/23 20:32 Resp 18 08/27/23 15:29 BP 103/58 08/27/23 18:22 Pulse Ox 92 L 08/27/23 20:23 FiO2 21 08/27/23 20:23 Intake & Output 08/27/23 08/27/23 08/28/23 06:59 18:59 06:59 Intake Total 1850 Output Total 1400 500 Balance -1400 1350 Intake: Intake, IV Titration 650 Amount Sodium Chloride 0.9% 1, 600 000 ml @ 50 mls/hr IV . Q20H [facility] Rx#:[id number] ceFAZolin 2 gm In Sodium 50 Chloride 0.9% 50 ml @ 100 mls/hr IVPB Q8HR [facility] Rx# :[id number] Oral 580 Blood Product 620 Rc As-1 Unit 310 [id number] Output: Urine 1400 500 Other: Voiding Method Indwelling Catheter Indwelling Catheter Indwelling Catheter - Labs CBC & Chem 7: 08/27/23 06:03 08/27/23 06:03 Labs: Abnormal Lab Results - Last 24 Hours (Table) 08/27/23 08/27/23 08/27/23 Range/Units 06:03 06:03 12:57 WBC 12.88 H (4.50-10.00) X 10*3/uL RBC 2.49 L (4.10-5.20) X 10*6/uL Hgb 6.9 A* (12.0-15.0) g/dL Hct 22.9 L (37.2-46.3) % MCHC 30.1 L (32.0-37.0) g/dL RDW 19.5 H (11.5-14.5) % Immature Gran # 0.12 H (0.00-0.04) X 10*3/uL Neutrophils # 11.23 H (1.80-7.70) X 10*3/uL Lymphocytes # 0.62 L (0.90-5.00) X 10*3/uL Sodium 134 L (135-145) mmol/L POC Glucose (mg/dL) (70-110) mg/dL Calcium 8.1 L (8.7-10.3) mg/dL Crossmatch See Detail 08/27/23 Range/Units 20:42 WBC (4.50-10.00) X 10*3/uL RBC (4.10-5.20) X 10*6/uL Hgb (12.0-15.0) g/dL Hct (37.2-46.3) % MCHC (32.0-37.0) g/dL RDW (11.5-14.5) % Immature Gran # (0.00-0.04) X 10*3/uL Neutrophils # (1.80-7.70) X 10*3/uL Lymphocytes # (0.90-5.00) X 10*3/uL Sodium (135-145) mmol/L POC Glucose (mg/dL) 124 H (70-110) mg/dL Calcium (8.7-10.3) mg/dL Crossmatch
[2023-08-28 07:21] LABS: Glucose,Whole Blood 89 mg/dL (70-110)
[2023-08-28 08:52] LABS: BUN/Creat Ratio 23.25 Ratio (12.00-20.00); Basophils # (A) 0.01 X 10*3/uL (0.00-0.10); Basophils % (A) 0.1 %; Blood Urea Nitrogen 18.6 mg/dL (9.0-27.0); Calcium 7.6 mg/dL (8.7-10.3); Carbon Dioxide 22.8 mmol/L (21.6-31.8); Chloride 103 mmol/L (96-109); Eosinophils # (A) 0.09 X 10*3/uL (0.04-0.35); Eosinophils % (A) 0.7 %; Glucose 90 mg/dL (70-110); Lymphocytes % (A) 4.6 %; Monocytes % (A) 6.9 %; Neutrophils # (A) 11.35 X 10*3/uL (1.80-7.70); Neutrophils % (A) 86.6 %; Potassium 3.9 mmol/L (3.5-5.5); Sodium 136 mmol/L (135-145)
[2023-08-28 09:01] LABS: HCT 25.8 % (37.2-46.3); HGB 8.1 g/dL (12.0-15.0); MCH 28.6 pg (27.0-32.0); MCHC 31.4 g/dL (32.0-37.0); MCV 91.2 FL (80.0-97.0); Mean Platelet Volume 9.9 FL (9.5-12.2); NRBC Per 100 WBC 0 X 10*3/uL (0.00-0.01); Platelet Count 220 X 10*3/uL (140-440); RBC 2.83 X 10*6/uL (4.10-5.20); RDW 18.8 % (11.5-14.5)
[2023-08-28] MEDS ORDERED: ZINC OXIDE PASTE (Z-GUARD) 1 APPLIC TOPICAL PRN (09:41)
[2023-08-28 12:30] LABS: Glucose,Whole Blood 114 mg/dL (70-110)
--- NOTE | 2023-08-28 12:48 | P.PN ---
Subjective Progress Note Date: 08/28/23 Principal diagnosis: Peripheral arterial disease Patient is seen and examined today as a follow-up. She continues to have pain down the left lower extremity mostly in the foot and toes. Today toes are purple and cold. Patient underwent liver biopsy, cytology currently pending. Awaiting further recommendations from oncology. Objective - Vital Signs Vital signs: Vital Signs Temp 98.3 F 08/28/23 07:15 Pulse 68 08/28/23 11:38 Resp 16 08/28/23 07:15 BP 95/55 08/28/23 07:15 Pulse Ox 91 L 08/28/23 07:15 FiO2 21 08/27/23 20:23 Intake & Output 08/27/23 08/28/23 08/28/23 18:59 06:59 18:59 Intake Total 1850 Output Total 500 850 Balance 1350 -850 Intake: Intake, IV Titration 650 Amount Sodium Chloride 0.9% 1, 600 000 ml @ 50 mls/hr IV . Q20H [facility] Rx#:[id number] ceFAZolin 2 gm In Sodium 50 Chloride 0.9% 50 ml @ 100 mls/hr IVPB Q8HR [facility] Rx# :[id number] Oral 580 Blood Product 620 Rc As-1 Unit 310 [id number] Output: Urine 500 850 Other: Voiding Method Indwelling Catheter Indwelling Catheter Indwelling Catheter # Bowel Movements 1 - Exam General appearance: The patient is alert, oriented, appears in no acute distress. HET: Head is normocephalic and atraumatic. Pupils are equal and reactive. Neck: Supple. Abdomen: Soft, hepatomegaly, firm, enlarged liver mass, tender, nondistended. Extremities: Bilateral lower extremity swelling. Left toes purple, mottled, cold. Patent bypass graft, left lower extremity warm to touch up to mid foot. Neurological: No focal deficits. - Labs CBC & Chem 7: 08/28/23 04:46 08/28/23 04:46 Labs: Abnormal Lab Results - Last 24 Hours (Table) 08/27/23 08/27/23 08/28/23 Range/Units 12:57 20:42 04:46 WBC 13.10 H (4.50-10.00) X 10*3/uL RBC 2.83 L (4.10-5.20) X 10*6/uL Hgb 8.1 L (12.0-15.0) g/dL Hct 25.8 L (37.2-46.3) % MCHC 31.4 L (32.0-37.0) g/dL RDW 18.8 H (11.5-14.5) % Immature Gran # 0.15 H (0.00-0.04) X 10*3/uL Neutrophils # 11.35 H (1.80-7.70) X 10*3/uL Lymphocytes # 0.60 L (0.90-5.00) X 10*3/uL BUN/Creatinine Ratio (12.00-20.00) Ratio POC Glucose (mg/dL) 124 H (70-110) mg/dL Calcium (8.7-10.3) mg/dL Crossmatch See Detail 08/28/23 08/28/23 Range/Units 04:46 12:29 WBC (4.50-10.00) X 10*3/uL RBC (4.10-5.20) X 10*6/uL Hgb (12.0-15.0) g/dL Hct (37.2-46.3) % MCHC (32.0-37.0) g/dL RDW (11.5-14.5) % Immature Gran # (0.00-0.04) X 10*3/uL Neutrophils # (1.80-7.70) X 10*3/uL Lymphocytes # (0.90-5.00) X 10*3/uL BUN/Creatinine Ratio 23.25 H (12.00-20.00) Ratio POC Glucose (mg/dL) 114 H (70-110) mg/dL Calcium 7.6 L (8.7-10.3) mg/dL Crossmatch Assessment and Plan Assessment: 1. 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 Large liver mass with metastatic disease throughout the lungs 3. Acute kidney injury 4. History of DVT and pulmonary embolism Plan: 1. Continue Xarelto 2. Left foot/lower extremity chronic disease, status post recent femorofemoral bypass with patent bypass. No further revascularization available. 3. Gabapentin added for pain management 4. Discussed with patient no further revascularization likely available, but would need to consider possible palliative amputation for pain management. Patient will think about this. Further recommendations forthcoming. Thank you for this consultation, we will continue to follow. The impression and plan of care has been dictated as directed. Dr. Mueller I performed a history and examination of this patient, discussed the same with the dictator. I agree with the dictator's note ,documented as a scribe. Any additional findings or plans will be noted.
[2023-08-28 17:14] LABS: Glucose,Whole Blood 89 mg/dL (70-110)
[2023-08-28 20:19] LABS: Glucose,Whole Blood 97 mg/dL (70-110)
[2023-08-28] MEDS: GABAPENTIN 300 MG CAP PO SCH (21:32)
[2023-08-28] MEDS: MELATONIN 5 MG TABLET PO PRN (21:32)
--- NOTE | 2023-08-29 05:54 | P.PN ---
Subjective Progress Note Date: 08/28/23 Patient is a 73-year-old female with a past medical history of DVT/PE on anticoagulation, peripheral vascular disease with left leg pain status post femoral to femoral bypass and left common femoral thromboendarterectomy on 08/04/2023, history of cholecystectomy on 07/11/2023 presents to ER with complaints of left lower extremity pain swelling and discoloration. Patient has been having chronic pain which has improved during the last 7 to 10 days. Patient does have history of liver mass and her physician is planning to get PET scan as an outpatient.. Patient has not seen oncology before. Otherwise patient denied any complaints of fever or chills. No nausea vomiting. No diarrhea. No cough or sputum production. No chest pain. EKG showed sinus rhythm. CT of the abdomen pelvis showed post femoral-femoral bypass changes with fluid collection around the graft. 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 Similar infrarenal abdominal aortic aneurysm back to at least 01/04/2023. Measuring 3.7 x 4.4 cm. Laboratory data showed WBC 18.8 hemoglobin 7.1, MCV 88.7 and platelets 473 INR 1.6, sodium 130 potassium 5.2 chloride 100 bicarb is 19 BUN 68, creatinine 2.03 and blood sugar 100 Total bili 1.9 AST 89 ALT 43 and alk phos 428 and albumin 2.5 and lipase level 977 08/24/2023 Patient is seen and evaluated in follow-up today being followed by vascular surgery along with oncology and interventional radiology was consulted for possible biopsy. Patient continued on empiric antibiotics with concerns of possible cellulitis of the lower extremities. Patient evaluated by vascular surgery as patient is recent femoropopliteal bypass and left common femoral thromboendarterectomy with no plans of revascularization interventions at this time. Patient okay to resume anticoagulation once cleared by oncology. Will hold on anticoagulation for now as hemoglobin is low and post 1 unit of PRBCs hemoglobin is 7.7 today. Discussing possible biopsy of the liver and will hold on anticoagulation including holding subcutaneous heparin for now. Interventional radiology consulted and pending. Patient with significant weakness would recommend being evaluated by PT/OT therapy. Overall treatment plan discussed with patient and would like to receive treatment if available. Will discuss further with oncology once biopsy is performed. 08/25/2023 Patient is seen in follow-up today currently n.p.o. scheduled to undergo ultrasound for possible liver biopsy with interventional radiology. Patient maintained on antibiotics as severe and patient is maintained on Dilaudid. Will also add [place] for breakthrough pain as patient reports 10/10 on the pain scale. Vascular surgery evaluated the patient with no plans of revascularization or surgical intervention on that left lower extremity. No contraindication to resume anticoagulation and Xarelto is being resumed. Patient is afebrile with no reports of chest pain or shortness of breath. Patient is currently wearing 2 L although does not normally wear oxygen outpatient. Encouraged oral intake and increased activity as tolerated. Patient to undergo biopsy and awaiting pathology as there is concerns of metastasis from the lungs as well. Overall prognosis is poor and guarded left at this time. 08/26/2023 Patient is resting in the bed. Awake alert and oriented x 3. No complaints of chest pain or shortness of breath. Patient still having left lower extremity discoloration of the toes. Swelling is about the same. Right lower extremity swelling did improve. Patient is s/p liver biopsy. Continued on anticoagulation with Xarelto. Patient is on antibiotics, cefazolin. Laboratory showed WBC 13.4 hemoglobin 7.7 and platelets 217 Sodium 130 potassium 3.5 chloride 101 bicarb is 24 BUN 25 and creatinine 0.93 and blood sugar 103 and calcium 7.8 and magnesium 2.2 08/27/2023 Patient is resting in the bed. Awake alert and oriented x 3. No nausea vomiting abdominal pain or diarrhea. Currently on room air. Still having left lower extremity discoloration of the toes and swelling. Hemoglobin 6.9 this morning and is being transfused with 1 unit of PRBC Other laboratory data showed WBC trending down to 12.8 hemoglobin 6.9 and platelets 218 sodium 134 potassium 4.3 chloride 103 bicarb is 23.5 BUN 19 and creatinine 1.0 and blood sugar 96 and calcium 8.1. Patient is on anticoagulation with Xarelto and also antibiotics cefazolin. Pain is controlled. 08/28/2023 Patient is seen and evaluated in follow-up today with multiple medical consultations following including vascular surgery and oncology. Patient cont inues to have a white count although is trending down and will follow-up with repeat labs. Patient is status post biopsy of the liver which is pending. Patient continues to report significant pain in the left lower extremity with inability to ambulate and was evaluated by vascular surgery with no plans of revascularization and also discussed with the patient about possible amputation for palliative pain relief as there are no plans or availabilities for further surgical intervention on that left lower extremity. Anticoagulation resumed. Patient remains on cefazolin with concerns of possible cellulitis of the lower extremities. Recommend repeat labs in the a.m. and continued PT/OT therapy Medications reviewed. Review of systems: Constitutional: No reports of fatigue, fever, or chills Cardiovascular: No reports of chest pain or palpitations Respiratory: No reports of shortness of breath or cough GI: No reports of nausea, vomiting, or diarrhea, reports abdominal pain and not much of an appetite : No reports of dysuria or retention Neurovascular: reports of generalized weakness, reports continued left lower extremity pain All medications have been reviewed PHYSICAL EXAMINATION: Patient is sitting up in the bed , elderly appearing, thin built, well- developed, awake alert and oriented.. HEENT: Normocephalic. Neck is supple. Pupils reactive. Nostrils clear. Oral cavity is moist. Neck reveals no JVD, carotid bruits, or thyromegaly. CHEST EXAMINATION: Trachea is central. Symmetrical expansion. Bibasilar diminished sounds. No wheezing. Nonlabored breathing.. CARDIAC: Normal S1, S2 with no gallops. No murmurs ABDOMEN: Soft. Tender on palpation, bowel sounds normal. No organomegaly. No abdominal bruits. Extremities: Bilateral lower extremity swelling with skin dislocation/mottling of the left lower extremity. cyanosis noted of the toes with significant sw elling and is severe pain 10/10 on light palpation Neurologically awake, alert, oriented x3. Patient is able to move all extremities.. No focal deficits noted. diffusely weak Skin: No rash or skin lesions. Cyanosis noted on lower extremities as well as upper extremities, more so on the right hand Psychiatric: Cooperative. Non-suicidal, anxious. Musculoskeletal: No joint swelling or deformity. Normal range of motion. Assessment: Bilateral lower extremity pain, swelling with recent history of femorofemoral bypass and left common femoral thromboendarterectomy Possible bilateral lower extremity cellulitis, present on admission Acute kidney injury likely prerenal, trending down Leukocytosis with WBC 18.8, trending down History of DVT/PE and on anticoagulation with Xarelto at home, anticoagulation being resumed Anemia, likely of chronic disease Hyponatremia secondary to poor oral intake Mild hyperkalemia 5.2 on admission likely due to SIXTO Large liver mass with metastatic lesions to lung.. Patient is scheduled for outpatient PET scan. Status post liver biopsy 08/25/2023 Abdominal aortic aneurysm stable from recent study Currently everyday smoker Moderate protein calorie malnutrition with a BMI of 23.4 GI prophylaxis DVT prophylaxis on Xarelto Full code Plan: Patient will be continued on IV hydration with normal saline. Continued on antibiotics for possible underlying cellulitis. Patient WBCs elevated although trending down and will follow-up with repeat labs. Encouraged oral intake as patient is not eating very well. Vascular surgery evaluated the patient with no plans of revascular intervention. Recommending resuming anticoagulation. Discussed with the patient about the option of possible amputation of that left lower extremity for palliative pain relief Oncology following status post biopsy and pending pathology. Await results to determine treatment plan moving forward Continue with pain management. Patient continues to report severe pain with Di laudid and [place] added as well as needed Recommend PT/OT therapy evaluation daily as patient is significantly weak and has not been up and walking Prognosis is guarded with multiple medical problems and comorbid conditions. Patient currently remains a full code and would like to receive treatment if there are options available. Will wait biopsy and discuss further with oncology. The impression and plan of care has been dictated by Amara Marrero, Nurse Practitioner as directed. Dr. Dell MD I have performed a history and examination and MDM of this patient, discussed the same with the dictator, and agree with the dictator's assessment and plan as written ,documented as a scribe. Based on total visit time, I have performed more than 50% of the visit. In the form of cefazolin with concerns of cellulitis of the lower extremities. Left lower extremity pain Objective - Vital Signs Vital signs: Vital Signs Temp 98.3 F 08/28/23 07:15 Pulse 68 08/28/23 08:16 Resp 16 08/28/23 07:15 BP 95/55 08/28/23 07:15 Pulse Ox 91 L 08/28/23 07:15 FiO2 21 08/27/23 20:23 Intake & Output 08/27/23 08/28/23 08/28/23 18:59 06:59 18:59 Intake Total 1850 Output Total 500 850 Balance 1350 -850 Intake: Intake, IV Titration 650 Amount Sodium Chloride 0.9% 1, 600 000 ml @ 50 mls/hr IV . Q20H [facility] Rx#:[id number] ceFAZolin 2 gm In Sodium 50 Chloride 0.9% 50 ml @ 100 mls/hr IVPB Q8HR [facility] Rx# :[id number] Oral 580 Blood Product 620 Rc As-1 Unit 310 [id number] Output: Urine 500 850 Other: Voiding Method Indwelling Catheter Indwelling Catheter - Labs CBC & Chem 7: 08/28/23 04:46 08/28/23 04:46 Labs: Abnormal Lab Results - Last 24 Hours (Table) 08/27/23 08/27/23 08/27/23 Range/Units 06:03 12:57 20:42 WBC (4.50-10.00) X 10*3/uL RBC (4.10-5.20) X 10*6/uL Hgb (12.0-15.0) g/dL Hct (37.2-46.3) % MCHC (32.0-37.0) g/dL RDW (11.5-14.5) % Immature Gran # (0.00-0.04) X 10*3/uL Neutrophils # (1.80-7.70) X 10*3/uL Lymphocytes # (0.90-5.00) X 10*3/uL Sodium 134 L (135-145) mmol/L BUN/Creatinine Ratio (12.00-20.00) Ratio POC Glucose (mg/dL) 124 H (70-110) mg/dL Calcium 8.1 L (8.7-10.3) mg/dL Crossmatch See Detail 08/28/23 08/28/23 Range/Units 04:46 04:46 WBC 13.10 H (4.50-10.00) X 10*3/uL RBC 2.83 L (4.10-5.20) X 10*6/uL Hgb 8.1 L (12.0-15.0) g/dL Hct 25.8 L (37.2-46.3) % MCHC 31.4 L (32.0-37.0) g/dL RDW 18.8 H (11.5-14.5) % Immature Gran # 0.15 H (0.00-0.04) X 10*3/uL Neutrophils # 11.35 H (1.80-7.70) X 10*3/uL Lymphocytes # 0.60 L (0.90-5.00) X 10*3/uL Sodium (135-145) mmol/L BUN/Creatinine Ratio 23.25 H (12.00-20.00) Ratio POC Glucose (mg/dL) (70-110) mg/dL Calcium 7.6 L (8.7-10.3) mg/dL Crossmatch
[2023-08-29 07:43] LABS: Glucose,Whole Blood 75 mg/dL (70-110)
--- NOTE | 2023-08-29 10:14 | P.PN ---
Subjective Progress Note Date: 08/29/23 Principal diagnosis: Peripheral arterial disease Patient seen and examined today as a follow-up. She states she still has pain down the left lower extremity greatest in her foot, at rest however very tender to palpation down the left ward. She states she is unable to get up and walk due to the pain. Liver biopsy came back as nondiagnostic however necrotic liver specimens likely neoplasm. Awaiting further recommendations from oncology. Objective - Vital Signs Vital signs: Vital Signs Temp 97.7 F 08/29/23 07:38 Pulse 70 08/29/23 07:38 Resp 16 08/29/23 07:38 BP 91/50 08/29/23 07:38 Pulse Ox 96 08/29/23 07:38 FiO2 21 08/27/23 20:23 Intake & Output 08/28/23 08/29/23 08/29/23 18:59 06:59 18:59 Intake Total 600 Output Total 800 500 Balance -200 -500 Weight 59.874 kg Intake: Intake, IV Titration 600 Amount Sodium Chloride 0.9% 1, 600 000 ml @ 50 mls/hr IV . Q20H [facility] Rx#:[id number] Output: Urine 800 500 Other: Voiding Method Indwelling Catheter Indwelling Catheter Indwelling Catheter # Bowel Movements 1 - Exam General appearance: The patient is alert, oriented, appears in no acute distress. HET: Head is normocephalic and atraumatic. Pupils are equal and reactive. Neck: Supple. Abdomen: Hepatomegaly, tenderness. Extremities: Bilateral lower extremity swelling. Left toes purple, mottled, cold. Patent bypass graft, left lower extremity warm to touch up to mid foot. Neurological: No focal deficits. - Labs CBC & Chem 7: 08/29/23 11:53 08/29/23 06:36 Labs: Abnormal Lab Results - Last 24 Hours (Table) 08/28/23 Range/Units 12:29 POC Glucose (mg/dL) 114 H (70-110) mg/dL Assessment and Plan Assessment: 1. Left femoral and popliteal artery occlusive disease status post femorofemoral bypass with CryoVein, left common femoral thromboendarterectomy with patent bypass 2. Left lower extremity pain 3. Large liver mass with metastatic disease throughout the lungs 4. Acute kidney injury 5. History of DVT and pulmonary embolism Plan: 1. Continue Xarelto 2. Left foot/lower extremity chronic disease, status post recent femorofemoral bypass with patent bypass. . 3. Continue pain management. Gabapentin added for pain management 4. Await further recommendations from oncology 5. CT angiogram chest abdomen pelvis with runoff ordered 6. Further recommendations forthcoming per vascular surgeon Thank you for this consultation, we will continue to follow. The impression and plan of care has been dictated as directed. Dr. Mueller I performed a history and examination of this patient, discussed the same with the dictator. I agree with the dictator's note ,documented as a scribe. Any additional findings or plans will be noted.
[2023-08-29 11:41] LABS: BUN/Creat Ratio 24.14 Ratio (12.00-20.00); Blood Urea Nitrogen 16.9 mg/dL (9.0-27.0); Calcium 7.7 mg/dL (8.7-10.3); Carbon Dioxide 23.7 mmol/L (21.6-31.8); Chloride 105 mmol/L (96-109); Glucose 77 mg/dL (70-110); Sodium 136 mmol/L (135-145)
[2023-08-29] MEDS ORDERED: RX INFO: IV CONTRAST WAS GIVEN 1 EACH MISC MISCELLANE PRN (11:46)
[2023-08-29 12:07] LABS: Anisocytosis Slight; Basophils % (A) 0 %; Eosinophils # (A) 0.1 k/uL (0-0.7); Eosinophils % (A) 1 %; HCT 27.9 % (34.0-46.0); HGB 8.7 gm/dL (11.4-16.0); Hypochromasia Marked; Lymphocytes # (A) 0.5 k/uL (1.0-4.8); Lymphocytes % (A) 3 %; MCH 29.8 pg (25.0-35.0); MCHC 31.3 g/dL (31.0-37.0); MCV 95.3 fL (80.0-100.0); Macrocytosis Slight; Mean Platelet Volume 8.6; Monocytes # (A) 0.6 k/uL (0-1.0); Monocytes % (A) 4 %; Neutrophils # (A) 13.1 k/uL (1.3-7.7); Neutrophils % (A) 91 %; Platelet Count 244 k/uL (150-450); Poikilocytosis Slight; RBC 2.92 m/uL (3.80-5.40); RDW 17.9 % (11.5-15.5); WBC 14.4 k/uL (3.8-10.6)
[2023-08-29] MEDS: DOCUSATE 100 MG CAP PO SCH (12:20)
[2023-08-29 12:35] LABS: Glucose,Whole Blood 102 mg/dL (70-110)
--- NOTE | 2023-08-29 14:20 | CT ---
EXAMINATION TYPE: CT angio tho/abd W Run Off CT DLP: 2267.5 mGycm, Automated exposure control for dose reduction was used. DATE OF EXAM: 08/29/2023 1:31 PM COMPARISON: CT 08/22/2023. . CLINICAL INDICATION:Female, 73 years old with history of PAD, LLE ischemia; PHH, LLE ischemia. TECHNIQUE: Dissection protocol: Multiple axial CT images of the chest, abdomen, and pelvis were obtai blane prior and to the administration of IV contrast. 3-D reformats and maximum intensity projection fo rmat were performed on a separate workstation. Contrast used:100ml mL of Isovue 370 without and with IV Contrast, Oral contrast used: FINDINGS: ARTERIAL VASCULATURE: Ascending thoracic aorta and descending thoracic aorta are within normal limits for size. There is no evidence for intramural hematoma within the aorta on noncontrast imaging. Ther e is scattered atherosclerotic plaque throughout the arterial vasculature. Postcontrast imaging demon strates no evidence for dissection. He major vessels of the aortic arch are patent. The major vessels of the abdominal aorta are patent. Abdominal aorta demonstrates fusiform dilation up to 43 x 42 mm with mural thrombus. Draping along th e posterior aspect which is similar to 01/04/2023. The aortic bifurcation demonstrates mild dilation o f the left common iliac artery. The left common iliac artery now has mural thrombus measuring and neha sures up to 15 mm in dilation. There is high-grade stenosis with reconstitution shortly thereafter. T here is diminutive appearance of the left external iliac artery. The right external iliac and common iliac arteries are patent. Right lower extremity common femoral artery is patent. The right superficial femoral artery is occlu ded at its origin extending to the leg and the inferior popliteal artery. The left lower leg are dimi nutive and poorly opacified likely due to occlusion above. Posterior tibial artery does cross the ank le. Anterior posterior tibial arteries not visualized. Left lower extremity: The common femoral artery is patent. The superficial femoral artery is occluded at its origin extending to the inferior popliteal artery with reconstitution. The anterior posterior tibial arteries are poorly opacified. There is an edematous left lower extremity with subcutaneous s treaky edema. Varicosities seen throughout the subcutaneous tissues. PULMONARY ARTERIAL VASCULATURE: Normal caliber. No evidence of filling defect to suggest pulmonary em bolus. VENOUS SYSTEM: Unremarkable. Lungs/pleura: Right upper lung masslike consolidation as well as scattered pulmonary nodules througho ut the lungs. Cavitary lesion in the right lower lung measuring 51 x 38 mm. A masslike consolidation in the lung apex measuring 37 x 24 mm. Pulmonary nodules in the lungs the largest in the left upper l gene measuring 6 mm in the right lung base measuring up to 26 mm and in the left lung base measuring u p to 17 mm.1 trace bilateral pleural effusions are present. There is severe emphysema changes. Heart: Within normal limits. Mediastinum: No gross evidence of adenopathy. Lower Neck: No significant findings. Abdomen: Liver: Large abdominal mass in the liver measuring similarly at 18 x 10 cm. Gallbladder and Bile ducts: Gallbladder is poorly visualized may be surgically absent. Pancreas: Unremarkable. Spleen: Unremarkable. Adrenal glands: Unremarkable. Kidneys and Ureters: Unremarkable. No hydronephrosis. Multiple wedge-shaped areas of nonenhancement a re seen throughout the kidneys. Possibly relating to small cysts versus tiny infarcts. Bladder: Unremarkable. Reproductive: Unremarkable. Stomach and Bowel: No evidence of bowel obstruction. Scattered colonic diverticula present. Peritoneum: No evidence of pneumoperitoneum, free fluid, or adenopathy. Right hip arthroplasty haines es. Hardware appears intact. Musculoskeletal: The osseous structures appear intact. Lymph nodes: No evidence of lymphadenopathy. Abdominal wall/soft tissues: Unremarkable. IMPRESSION: ABDOMEN: 1. Findings concerning for metastatic disease with dominant liver mass and scattered pulmonary nodul es/masses one of which is cavitary in the right lung base. 2. Abdominal aorta demonstrates fusiform dilation up to 43 x 42 mm with mural thrombus. Draping marleni g the posterior aspect which is similar to 01/04/2023. 3. High-grade stenosis of the left common iliac artery with reconstitution. 4. Diminutive appearance of the left external iliac artery. 5. Tiny areas in the bilateral kidneys of nonopacified cortex could represent cysts versus tiny infa rcts. Correlate with urinalysis for pyelonephritis. Right: * Right lower extremity common femoral artery is patent. The right superficial femoral artery is occ luded at its origin extending to the leg and the inferior popliteal artery. * Poor visualization of the anterior and posterior tibial arteries secondary to occlusion described above. The posterior tibial artery does cross the ankle. Left: * Occlusion of the left superficial femoral artery extending from its origin to the popliteal artery . Reconstitution with poor visualization of the anterior posterior tibial arteries.
--- NOTE | 2023-08-29 14:22 | P.PN ---
Subjective Progress Note Date: 08/29/23 S/p liver biopsy. pathology revealed necrotic cellular material suggestive of necrotic neoplasm, however it was insufficient for diagnosis. Patient is reporting increased left lower extremity pain. Vascular surgery following. We had ordered CT chest with contrast today to further evaluate pulmonary nodules noted on CT abdomen pelvis. Did speak with vascular surgery and surgeon had requested a CTA abdomen with runoff. Ordered changed to CTA chest and abd with runoff Objective - Vital Signs Vital signs: Vital Signs Temp 97.7 F 08/29/23 07:38 Pulse 68 08/29/23 11:20 Resp 16 08/29/23 07:38 BP 91/50 08/29/23 07:38 Pulse Ox 96 08/29/23 07:38 FiO2 21 08/27/23 20:23 Intake & Output 08/28/23 08/29/23 08/29/23 18:59 06:59 18:59 Intake Total 600 Output Total 800 500 Balance -200 -500 Weight 59.874 kg Intake: Intake, IV Titration 600 Amount Sodium Chloride 0.9% 1, 600 000 ml @ 50 mls/hr IV . Q20H [facility] Rx#:[id number] Output: Urine 800 500 Other: Voiding Method Indwelling Catheter Indwelling Catheter Indwelling Catheter # Bowel Movements 1 - Constitutional General appearance: Present: average body habitus, no acute distress - EENT Eyes: Present: anicteric sclerae, EOMI ENT: Present: hearing grossly normal - Respiratory Details: breathing even and unlabored - Peripheral edema leg Peripheral Edema: left: 3+ (discoloration to left foot, with decreased sensation and cool to touch ) - Gastrointestinal General gastrointestinal: Present: hepatomegaly, tenderness - Integumentary Integumentary: Absent: cyanotic, jaundiced - Psychiatric Psychiatric: Present: A&O x's 3 - Labs CBC & Chem 7: 08/29/23 11:53 08/29/23 06:36 Labs: Abnormal Lab Results - Last 24 Hours (Table) 08/28/23 08/29/23 Range/Units 12:29 06:36 BUN/Creatinine Ratio 24.14 H (12.00-20.00) Ratio POC Glucose (mg/dL) 114 H (70-110) mg/dL Calcium 7.7 L (8.7-10.3) mg/dL Assessment and Plan (1) Abdominal mass Current Visit: Yes Status: Acute Priority: High Code(s): R19.00 - INTRA- ABD AND PELVIC SWELLING, MASS AND LUMP, UNSP SITE SNOMED Code(s): 835654046 (2) Acute kidney injury Current Visit: Yes Status: Acute Priority: High Code(s): N17.9 - ACUTE KIDNEY FAILURE, UNSPECIFIED SNOMED Code(s): 64833966 (3) Leg pain Current Visit: Yes Status: Acute Priority: High Code(s): M79.606 - PAIN IN LEG, UNSPECIFIED SNOMED Code(s): 00873004 (4) Anemia Current Visit: Yes Status: Acute Priority: High Code(s): D64.9 - ANEMIA, UNSPECIFIED SNOMED Code(s): 331817229 Plan: Liver mass, metastatic disease: -Newly diagnosed suspected metastatic liver cancer. She was recently referred to Dr Ad Gruber for evaluation for liver mass, but has yet to establish care. Patient had CT abdomen with contrast on 07/21/2023 which revealed 10 x 14 cm ill- defined mass in the left liver that was not present on CTA abdomen on 01/04/2023. PET CT was scheduled but has yet to be obtained. -Upon admission CT abdomen pelvis without contrast revealed post femoral bypass changes with fluid collection around graft. New large hepatic mass measuring 18.1 x 12.5 cm with metastatic disease throughout the lungs. -Tumor markers ordered. AFP, CEA, and Ca 19-9 normal. Liver biopsy ordered -S/p liver biopsy. Pathology revealed necrotic cellular material suggestive of necrotic neoplasm, however it was insufficient for diagnosis. CT chest with contrast ordered to evaluate pulmonary nodules noted on CT abdomen pelvis to see if bronch/biopsy could be obtained for tissue diagnosis. Spoke with vascular surgery and surgeon had requested a CTA abdomen with runoff due to increasing LLE pain. Ordered changed to CTA chest/abd with runoff, results pending Pt updated on pathology and POC Anemia: -Upon admission CBC revealed WBC 18.8, hemoglobin 7.1, platelets 473,000. Upon trending labs, hemoglobin normal at 13.0 approx 5 weeks ago. Pt denies any episodes of acute bleeding or melena -Anemia workup obtained. No nutritional deficiencies noted. Anemia labs consistent with anemia of inflammation -Has received 2 units PRBCs this admission. Repeat hgb 8.7 today -Please transfuse for hgb < 7 or if symptomatic -Will continue to monitor DVT hx/leg pain -Underwent bypass with CryoVein on 08/04/2023 and left common femoral thromboendarterectomy for left femoral and popliteal arterial occlusive disease. 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 Doppler of bilateral lower extremities on 07/27/2023 revealed chronic appearing deep vein thrombosis within the left popliteal vein and left great saphenous vein. No acute DVT noted bilaterally -Case discussed with vascular team. Patient is not a candidate for revascularization of LLE. S/p Biopsy pt was restarted on Xarelto -CTA chest/abd with runoff ordered due to progressing LLE pain -Defer to vascular surgery for management
[2023-08-29] MEDS: HYDROmorphone 0.5 MG/0.5 ML SYRINGE IVP PRN (20:36)
--- NOTE | 2023-08-30 05:58 | P.PN ---
Subjective Progress Note Date: 08/29/23 Patient is a 73-year-old female with a past medical history of DVT/PE on anticoagulation, peripheral vascular disease with left leg pain status post femoral to femoral bypass and left common femoral thromboendarterectomy on 08/04/2023, history of cholecystectomy on 07/11/2023 presents to ER with complaints of left lower extremity pain swelling and discoloration. Patient has been having chronic pain which has improved during the last 7 to 10 days. Patient does have history of liver mass and her physician is planning to get PET scan as an outpatient.. Patient has not seen oncology before. Otherwise patient denied any complaints of fever or chills. No nausea vomiting. No diarrhea. No cough or sputum production. No chest pain. EKG showed sinus rhythm. CT of the abdomen pelvis showed post femoral-femoral bypass changes with fluid collection around the graft. 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 Similar infrarenal abdominal aortic aneurysm back to at least 01/04/2023. Measuring 3.7 x 4.4 cm. Laboratory data showed WBC 18.8 hemoglobin 7.1, MCV 88.7 and platelets 473 INR 1.6, sodium 130 potassium 5.2 chloride 100 bicarb is 19 BUN 68, creatinine 2.03 and blood sugar 100 Total bili 1.9 AST 89 ALT 43 and alk phos 428 and albumin 2.5 and lipase level 977 08/24/2023 Patient is seen and evaluated in follow-up today being followed by vascular surgery along with oncology and interventional radiology was consulted for possible biopsy. Patient continued on empiric antibiotics with concerns of possible cellulitis of the lower extremities. Patient evaluated by vascular surgery as patient is recent femoropopliteal bypass and left common femoral thromboendarterectomy with no plans of revascularization interventions at this time. Patient okay to resume anticoagulation once cleared by oncology. Will hold on anticoagulation for now as hemoglobin is low and post 1 unit of PRBCs hemoglobin is 7.7 today. Discussing possible biopsy of the liver and will hold on anticoagulation including holding subcutaneous heparin for now. Interventional radiology consulted and pending. Patient with significant weakness would recommend being evaluated by PT/OT therapy. Overall treatment plan discussed with patient and would like to receive treatment if available. Will discuss further with oncology once biopsy is performed. 08/25/2023 Patient is seen in follow-up today currently n.p.o. scheduled to undergo ultrasound for possible liver biopsy with interventional radiology. Patient maintained on antibiotics as severe and patient is maintained on Dilaudid. Will also add [place] for breakthrough pain as patient reports 10/10 on the pain scale. Vascular surgery evaluated the patient with no plans of revascularization or surgical intervention on that left lower extremity. No contraindication to resume anticoagulation and Xarelto is being resumed. Patient is afebrile with no reports of chest pain or shortness of breath. Patient is currently wearing 2 L although does not normally wear oxygen outpatient. Encouraged oral intake and increased activity as tolerated. Patient to undergo biopsy and awaiting pathology as there is concerns of metastasis from the lungs as well. Overall prognosis is poor and guarded left at this time. 08/26/2023 Patient is resting in the bed. Awake alert and oriented x 3. No complaints of chest pain or shortness of breath. Patient still having left lower extremity discoloration of the toes. Swelling is about the same. Right lower extremity swelling did improve. Patient is s/p liver biopsy. Continued on anticoagulation with Xarelto. Patient is on antibiotics, cefazolin. Laboratory showed WBC 13.4 hemoglobin 7.7 and platelets 217 Sodium 130 potassium 3.5 chloride 101 bicarb is 24 BUN 25 and creatinine 0.93 and blood sugar 103 and calcium 7.8 and magnesium 2.2 08/27/2023 Patient is resting in the bed. Awake alert and oriented x 3. No nausea vomiting abdominal pain or diarrhea. Currently on room air. Still having left lower extremity discoloration of the toes and swelling. Hemoglobin 6.9 this morning and is being transfused with 1 unit of PRBC Other laboratory data showed WBC trending down to 12.8 hemoglobin 6.9 and platelets 218 sodium 134 potassium 4.3 chloride 103 bicarb is 23.5 BUN 19 and creatinine 1.0 and blood sugar 96 and calcium 8.1. Patient is on anticoagulation with Xarelto and also antibiotics cefazolin. Pain is controlled. 08/28/2023 Patient is seen and evaluated in follow-up today with multiple medical consultations following including vascular surgery and oncology. Patient cont inues to have a white count although is trending down and will follow-up with repeat labs. Patient is status post biopsy of the liver which is pending. Patient continues to report significant pain in the left lower extremity with inability to ambulate and was evaluated by vascular surgery with no plans of revascularization and also discussed with the patient about possible amputation for palliative pain relief as there are no plans or availabilities for further surgical intervention on that left lower extremity. Anticoagulation resumed. Patient remains on cefazolin with concerns of possible cellulitis of the lower extremities. Recommend repeat labs in the a.m. and continued PT/OT therapy 08/29/2023 Patient is seen in follow-up this morning with vascular and oncology following. Patient continues to report significant 10/10 pain of the left lower extremity and repeat CT angiogram being ordered. Patient underwent biopsy of the liver although suggestive of metastatic disease, specimen was insufficient for diagnosis. Oncology discussing looking into CT chest to evaluate the lung no dules for possible biopsy and/or bronchoscopy. Patient is afebrile, white count remains slightly elevated, no reports of chest pain or shortness of breath and patient is on room air. Patient continues on antibiotics with concerns of lower extremity cellulitis as well. Encouraged to increase activity as tolerated although patient reports unable to stand due to the pain on the left leg. Recommend PT/OT therapy daily. Medications reviewed. Review of systems: Constitutional: No reports of fatigue, fever, or chills Cardiovascular: No reports of chest pain or palpitations Respiratory: No reports of shortness of breath or cough GI: No reports of nausea, vomiting, or diarrhea, no reports abdominal pain, reports not much of an appetite : No reports of dysuria or retention Neurovascular: reports of generalized weakness, reports continued left lower extremity pain 10/10 All medications have been reviewed PHYSICAL EXAMINATION: Patient is sitting up in the bed , elderly appearing, thin built, well- developed, awake alert and oriented.. HEENT: Normocephalic. Neck is supple. Pupils reactive. Nostrils clear. Oral cavity is moist. Neck reveals no JVD, carotid bruits, or thyromegaly. CHEST EXAMINATION: Trachea is central. Symmetrical expansion. Bibasilar diminished sounds. No wheezing. Nonlabored breathing.. CARDIAC: Normal S1, S2 with no gallops. No murmurs ABDOMEN: Soft. Tender on palpation, bowel sounds normal. Large firm liver noted on the right. No abdominal bruits. Extremities: Bilateral lower extremity swelling with skin dislocation/mottling of the left lower extremity. cyanosis noted of the toes with some swelling and is severe pain 10/10 on light palpation Neurologically awake, alert, oriented x3. Patient is able to move all extremities.. No focal deficits noted. diffusely weak Skin: No rash or skin lesions. Cyanosis noted on lower extremities as well as upper extremities, more so on the right hand Psychiatric: Cooperative. Non-suicidal, anxious. Musculoskeletal: No joint swelling or deformity. Normal range of motion. Assessment: Bilateral lower extremity pain, swelling with recent history of femorofemoral bypass and left common femoral thromboendarterectomy Possible bilateral lower extremity cellulitis, present on admission Acute kidney injury likely prerenal, trending down Leukocytosis with WBC 18.8, trending down History of DVT/PE and on anticoagulation with Xarelto at home, anticoagulation being resumed Anemia, likely of chronic disease Hyponatremia secondary to poor oral intake Mild hyperkalemia 5.2 on admission likely due to SIX[place], improved Large liver mass with metastatic lesions to lung.. Patient is scheduled for outpatient PET scan. Status post liver biopsy 08/25/2023, likely metastatic disease although specimen was insufficient for diagnosis Abdominal aortic aneurysm stable from recent study Currently everyday smoker Moderate protein calorie malnutrition with a BMI of 23.4 GI prophylaxis DVT prophylaxis on Xarelto Full code Plan: Patient is continued on IV hydration with normal saline. Continued on antibio tics in the form of cefazolin for possible underlying cellulitis. Patient WBCs elevated although trending down and will follow-up with repeat labs. Encouraged oral intake as patient is not eating very well. Vascular surgery evaluated the patient with no plans of revascular intervention. Xarelto has been resumed. Patient continues to have left lower extremity pain and CT angio ordered and pending. Discussed with the patient about the option of possible amputation of that left lower extremity for palliative pain relief Oncology following status post biopsy and there was noted necrotic tissue and likely metastatic disease although specimen was insufficient for diagnosis. Oncology is aware and has added CT chest for evaluation of the lung nodules for possible bronchoscopy with biopsy for diagnosis. Awaiting CT results with possible consult to pulmonary if necessary. Await results to determine treatment plan moving forward Continue with pain management. Patient continues to report severe pain with Dilaudid and [place], gabapentin now being ordered Recommend PT/OT therapy evaluation daily as patient is significantly weak and has not been up and walking. Patient reports unable to place any weight on the left lower extremity due to severe pain Prognosis is guarded with multiple medical problems and comorbid conditions. Patient currently remains a full code and would like to receive treatment if there are options available. Will wait CT chest and discuss further with onc ology about treatment plan moving forward. The impression and plan of care has been dictated by Amara Marrero, Nurse Practitioner as directed. Dr. Dell MD I have performed a history and examination and MDM of this patient, discussed the same with the dictator, and agree with the dictator's assessment and plan as written ,documented as a scribe. Based on total visit time, I have performed more than 50% of the visit. In the form of cefazolin with concerns of cellulitis of the lower extremities. Left lower extremity pain Objective - Vital Signs Vital signs: Vital Signs Temp 98.0 F 08/30/23 02:00 Pulse 85 08/30/23 02:00 Resp 16 08/30/23 02:00 BP 96/62 08/29/23 20:00 Pulse Ox 91 L 08/30/23 02:00 FiO2 21 08/27/23 20:23 Intake & Output 08/29/23 08/29/23 08/30/23 06:59 18:59 06:59 Output Total 500 700 Balance -500 -700 Output: Urine 500 700 Other: Voiding Method Indwelling Catheter Indwelling Catheter Indwelling Catheter - Labs CBC & Chem 7: 08/29/23 11:53 08/29/23 06:36 Labs: Abnormal Lab Results - Last 24 Hours (Table) 08/29/23 08/29/23 Range/Units 06:36 11:53 WBC 14.4 H (3.8-10.6) k/uL RBC 2.92 L (3.80-5.40) m/uL Hgb 8.7 L (11.4-16.0) gm/dL Hct 27.9 L (34.0-46.0) % RDW 17.9 H (11.5-15.5) % Neutrophils # 13.1 H (1.3-7.7) k/uL Lymphocytes # 0.5 L (1.0-4.8) k/uL BUN/Creatinine Ratio 24.14 H (12.00-20.00) Ratio Calcium 7.7 L (8.7-10.3) mg/dL
[2023-08-30 08:36] LABS: Basophils # (A) 0.03 X 10*3/uL (0.00-0.10); Basophils % (A) 0.2 %; Eosinophils # (A) 0.08 X 10*3/uL (0.04-0.35); Eosinophils % (A) 0.5 %; HCT 29.8 % (37.2-46.3); HGB 9.3 g/dL (12.0-15.0); Lymphocytes # (A) 0.91 X 10*3/uL (0.90-5.00); Lymphocytes % (A) 5.5 %; MCH 28.8 pg (27.0-32.0); MCHC 31.2 g/dL (32.0-37.0); MCV 92.3 FL (80.0-97.0); Mean Platelet Volume 10.1 FL (9.5-12.2); Monocytes # (A) 0.94 X 10*3/uL (0.20-1.00); Monocytes % (A) 5.6 %; NRBC Per 100 WBC 0 X 10*3/uL (0.00-0.01); Neutrophils # (A) 14.38 X 10*3/uL (1.80-7.70); Neutrophils % (A) 86.3 %; Platelet Count 271 X 10*3/uL (140-440); RBC 3.23 X 10*6/uL (4.10-5.20); RDW 19.4 % (11.5-14.5); WBC 16.66 X 10*3/uL (4.50-10.00)
[2023-08-30 08:42] LABS: BUN/Creat Ratio 21.75 Ratio (12.00-20.00); Blood Urea Nitrogen 17.4 mg/dL (9.0-27.0); Carbon Dioxide 20.6 mmol/L (21.6-31.8); Chloride 102 mmol/L (96-109); Glucose 103 mg/dL (70-110); Magnesium 1.7 mg/dL (1.5-2.4); Potassium 3.7 mmol/L (3.5-5.5); Sodium 134 mmol/L (135-145)
--- NOTE | 2023-08-30 12:13 | P.PN ---
Subjective Progress Note Date: 08/30/23 S/p liver biopsy. Pathology revealed necrotic cellular material suggestive of necrotic neoplasm, however it was insufficient for diagnosis. Patient was reporting increased left lower extremity pain. Spoke with vascular team and CTA chest and abd with runoff was ordered. At todays visit, pt reports no change in LLE pain. Denies n/v, tolerating oral intake. Objective - Vital Signs Vital signs: Vital Signs Temp 97.8 F 08/30/23 07:12 Pulse 68 08/30/23 08:27 Resp 16 08/30/23 07:12 BP 106/69 08/30/23 07:12 Pulse Ox 90 L 08/30/23 07:12 FiO2 21 08/27/23 20:23 Intake & Output 08/29/23 08/30/23 08/30/23 18:59 06:59 18:59 Intake Total 590 Output Total 700 1000 Balance -700 -410 Intake: Oral 590 Output: Urine 700 1000 Other: Voiding Method Indwelling Catheter Indwelling Catheter Indwelling Catheter - Constitutional General appearance: Present: average body habitus, no acute distress - EENT Eyes: Present: EOMI ENT: Present: hearing grossly normal - Respiratory Details: breathing even and unlabored - Integumentary Integumentary: Absent: cyanotic - Musculoskeletal Musculoskeletal: Present: generalized weakness - Psychiatric Psychiatric: Present: A&O x's 3 - Labs CBC & Chem 7: 08/30/23 06:03 08/30/23 06:03 Labs: Abnormal Lab Results - Last 24 Hours (Table) 08/29/23 08/29/23 08/30/23 Range/Units 06:36 11:53 06:03 WBC 14.4 H 16.66 H (3.8-10.6) k/uL RBC 2.92 L 3.23 L (3.80-5.40) m/uL Hgb 8.7 L 9.3 L (11.4-16.0) gm/dL Hct 27.9 L 29.8 L (34.0-46.0) % MCHC 31.2 L (32.0-37.0) g/dL RDW 17.9 H 19.4 H (11.5-15.5) % Immature Gran # 0.32 H (0.00-0.04) X 10*3/uL Neutrophils # 13.1 H 14.38 H (1.3-7.7) k/uL Lymphocytes # 0.5 L (1.0-4.8) k/uL Sodium (135-145) mmol/L Carbon Dioxide (21.6-31.8) mmol/L BUN/Creatinine Ratio 24.14 H (12.00-20.00) Ratio Calcium 7.7 L (8.7-10.3) mg/dL 08/30/23 Range/Units 06:03 WBC (3.8-10.6) k/uL RBC (3.80-5.40) m/uL Hgb (11.4-16.0) gm/dL Hct (34.0-46.0) % MCHC (32.0-37.0) g/dL RDW (11.5-15.5) % Immature Gran # (0.00-0.04) X 10*3/uL Neutrophils # (1.3-7.7) k/uL Lymphocytes # (1.0-4.8) k/uL Sodium 134 L (135-145) mmol/L Carbon Dioxide 20.6 L (21.6-31.8) mmol/L BUN/Creatinine Ratio 21.75 H (12.00-20.00) Ratio Calcium 8.0 L (8.7-10.3) mg/dL - Imaging and Cardiology CT scan - abdomen: report reviewed CT scan - chest: report reviewed Assessment and Plan (1) Abdominal mass Current Visit: Yes Status: Acute Priority: High Code(s): R19.00 - INTRA- ABD AND PELVIC SWELLING, MASS AND LUMP, UNSP SITE SNOMED Code(s): 821410985 (2) Acute kidney injury Current Visit: Yes Status: Acute Priority: High Code(s): N17.9 - ACUTE KIDNEY FAILURE, UNSPECIFIED SNOMED Code(s): 08313928 (3) Leg pain Current Visit: Yes Status: Acute Priority: High Code(s): M79.606 - PAIN IN LEG, UNSPECIFIED SNOMED Code(s): 73165899 (4) Anemia Current Visit: Yes Status: Acute Priority: High Code(s): D64.9 - ANEMIA, UNSPECIFIED SNOMED Code(s): 486169973 (5) Lung mass Current Visit: Yes Status: Acute Priority: High Code(s): R91.8 - OTHER NONSPECIFIC ABNORMAL FINDING OF LUNG FIELD SNOMED Code(s): 384154532 Plan: Liver mass, metastatic disease: -Newly diagnosed suspected metastatic liver cancer. She was recently referred to Dr Ad Gruber for evaluation for liver mass, but has yet to establish care. Patient had CT abdomen with contrast on 07/21/2023 which revealed 10 x 14 cm ill- defined mass in the left liver that was not present on CTA abdomen on 01/04/2023. PET CT was scheduled but has yet to be obtained. -Upon admission CT abdomen pelvis without contrast revealed post femoral bypass changes with fluid collection around graft. New large hepatic mass measuring 18.1 x 12.5 cm with metastatic disease throughout the lungs. -Tumor markers ordered. AFP, CEA, and Ca 19-9 normal. Liver biopsy ordered -S/p liver biopsy. Pathology revealed necrotic cellular material suggestive of necrotic neoplasm, however it was insufficient for diagnosis. CTA chest/abd with runoff ordered. Scan revealed liver mass measuring 18 x 10 cm. Right upper lobe lung mass like consolidation as well as scattered pulmonary nodules throughout the lungs. Cavitary lesion in the right lower lung measuring 5.1 x 3.8 cm. Masslike consolidation in the lung apex measuring 3.7 x [address] pulmonary consult for evaluation for bronch/biopsy Pt updated on results and POC was agreeable to proceed with further workup Anemia: -Upon admission CBC revealed WBC 18.8, hemoglobin 7.1, platelets 473,000. Upon trending labs, hemoglobin normal at 13.0 approx 5 weeks ago. Pt denies any episodes of acute bleeding or melena -Anemia workup obtained. No nutritional deficiencies noted. Anemia labs consistent with anemia of inflammation -Has received 2 units PRBCs this admission. Repeat hgb 9.3 today -Please transfuse for hgb < 7 or if symptomatic -Will continue to monitor DVT hx/leg pain -Underwent bypass with CryoVein on 08/04/2023 and left common femoral thromboendarterectomy for left femoral and popliteal arterial occlusive disease. 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 Doppler of bilateral lower extremities on 07/27/2023 revealed chronic appearing deep vein thrombosis within the left popliteal vein and left great saphenous vein. No acute DVT noted bilaterally -Case discussed with vascular team. Patient is not a candidate for revascu larization of LLE. Continues on Xarelto -Defer to vascular surgery for management
--- NOTE | 2023-08-30 12:24 | XR ---
EXAMINATION TYPE: XR chest 1V portable DATE OF EXAM: 08/30/2023 HISTORY: Shortness of breath. COMPARISON: 09/28/2017 TECHNIQUE: Single view of the chest is submitted. FINDINGS: Demonstrated are scattered senescent parenchymal change. Right apical masslike density. Scattered pulmonary nodules mid and lower lung beatty. Patchy basilar infiltrates. Small right effusion. The heart is stable. Hilar and mediastinal structures are within normal limits. Degenerative changes are seen of the dorsal spine. IMPRESSION: 1. Right apical masslike density. Scattered pulmonary nodules mid and lower lung beatty. Patchy basi lar infiltrates. Small right effusion.
--- NOTE | 2023-08-30 13:50 | P.PN ---
Subjective Progress Note Date: 08/30/23 Principal diagnosis: Peripheral arterial disease Patient is seen and examined today as a follow-up. Yesterday she underwent a CT angiogram aorta abdomen pelvis with runoff. It appears that femorofemoral bypass graft is now down after reviewing CTA. Still reports left lower ex tremity pain, discoloration. Denies any chest pain or shortness of breath, no abdominal pain, fevers or chills. Oncology is recommending consultation to pulmonology for evaluation for bronchoscopy and biopsy. She is currently on IV Kefzol. CTA reported findings concerning for metastatic disease with dominant liver mass and scattered pulmonary nodules/masses 1 of which is cavitary in the right lung base. Abdominal aorta demonstrates fusiform dilation up to 43 x 42 mm with mural thrombus similar to 01/04/2023. High-grade stenosis of left common iliac artery with reconstitution, diminutive appearance of the left external iliac artery, tiny areas in bilateral kidneys of none opacified cortex could represent cyst versus tiny infarcts correlate for Oziel nephritis. Right lower extremity Common femoral artery patent. Right SFA artery is occluded at its origin extending to the leg and the inferior popliteal artery. Poor visualization of the anterior and posterior tibial artery secondary to occlusive described above. Posterior tibial artery does cross the ankle. Occlusion of the left distal superficial femoral artery extending from its origin to the popliteal artery. Reconstitution with poor visualization of the anterior posterior tibial arteries. Objective - Vital Signs Vital signs: Vital Signs Temp 97.6 F 08/30/23 12:00 Pulse 86 08/30/23 12:00 Resp 16 08/30/23 12:00 BP 121/74 08/30/23 12:00 Pulse Ox 90 L 08/30/23 12:00 FiO2 21 08/27/23 20:23 Intake & Output 08/29/23 08/30/23 08/30/23 18:59 06:59 18:59 Intake Total 590 Output Total 700 1000 Balance -700 -410 Intake: Oral 590 Output: Urine 700 1000 Other: Voiding Method Indwelling Catheter Indwelling Catheter Indwelling Catheter - Exam General appearance: The patient is alert, oriented, appears in no acute distress. HET: Head is normocephalic and atraumatic. Pupils are equal and reactive. Neck: Supple. Abdomen: Hepatomegaly, tenderness. Extremities: Bilateral lower extremity swelling. Left toes purple, mottled, cold. Bypass non-palpable. Neurological: No focal deficits. - Labs CBC & Chem 7: 08/30/23 06:03 08/30/23 06:03 Labs: Abnormal Lab Results - Last 24 Hours (Table) 08/30/23 08/30/23 Range/Units 06:03 06:03 WBC 16.66 H (4.50-10.00) X 10*3/uL RBC 3.23 L (4.10-5.20) X 10*6/uL Hgb 9.3 L (12.0-15.0) g/dL Hct 29.8 L (37.2-46.3) % MCHC 31.2 L (32.0-37.0) g/dL RDW 19.4 H (11.5-14.5) % Immature Gran # 0.32 H (0.00-0.04) X 10*3/uL Neutrophils # 14.38 H (1.80-7.70) X 10*3/uL Sodium 134 L (135-145) mmol/L Carbon Dioxide 20.6 L (21.6-31.8) mmol/L BUN/Creatinine Ratio 21.75 H (12.00-20.00) Ratio Calcium 8.0 L (8.7-10.3) mg/dL Assessment and Plan Assessment: 1. Left femoral and popliteal artery occlusive disease status post femo rofemoral bypass with CryoVein, left common femoral thromboendarterectomy with patent bypass 2. Left lower extremity pain 3. Large liver mass with metastatic disease throughout the lungs 4. Acute kidney injury 5. History of DVT and pulmonary embolism Plan: 1. Hold Xarelto 2. Continue pain management. Gabapentin added for pain management 3. Continue with recommendations from oncology 4. CT angiogram chest abdomen pelvis with runoff ordered and reviewed. Femoro femoral bypass graft down. 5. Will plan for axillofemoral bypass graft on 09/01/2023 Thank you for this consultation, we will continue to follow. The impression and plan of care has been dictated as directed. Dr. Portillo I performed a history and examination of this patient, discussed the same with the dictator. I agree with the dictator's note ,documented as a scribe. Any additional findings or plans will be noted.
--- NOTE | 2023-08-30 17:18 | P.CNPUL ---
History of Present Illness Consult date: 08/30/23 Requesting physician: Ervin Feliciano Reason for consult: lung mass, abnormal CXR/CT Chief complaint: Left leg pain History of present illness: This is a 73-year-old female patient with a known history of pulmonary embolism, DVT of the left leg, uterine cancer with previous hysterectomy, chronic obstr uctive pulmonary disease with chronic and ongoing tobacco dependence. She had presented here to the emergency room back on August 22, 2023 with complaints of left leg pain. She has had chronic pain and had previously had surgery 2 weeks prior to her arrival here. She also was known to have suspected liver cancer with metastasis and was waiting on an outpatient PET scan. CT scan of the abdomen did reveal a post femoral-femoral bypass changes with fluid collection around the graft. There is a large hepatic mass with metastatic disease throughout the lungs. Similar infrarenal abdominal aortic aneurysm from previous scan in December 2022. She did have a liver biopsy here on August 25, 2023 that revealed necrotic cellular material suggestive of necrotic neoplasm but insufficient for diagnosis due to lack of viable tissue. We were consulted today for possible lung biopsy. 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 Her Xarelto is on hold and they are planning for axillofemoral bypass grafting on 09/01/2023. She is seen today in consultation on the regular medical floor. She is currently sitting up in bed. She is having quite a bit of musculoskeletal pain. She is also having quite a bit of left lower extremity pain. She is maintaining O2 saturations in the 90s on room air. She is afebrile. Hemodynamically stable. She denies any worsening shortness of breath, cough or congestion. No hemoptysis. Review of Systems REVIEW OF SYSTEMS: CONSTITUTIONAL: Denies any recent significant weight loss or weight gain. EYES: Denies change in vision. EARS, NOSE, MOUTH, THROAT: Denies headaches, denies sore throat. CARDIOVASCULAR: Denies chest pain, palpitations or syncopal episodes. RESPIRATORY: Denies shortness of breath, cough, congestion or hemoptysis. GASTROINTESTINAL: Positive for abdominal pain GENITOURINARY: Denies hematuria, denies infections. MUSKULOSKELETAL: Positive for left leg pain and swelling swelling. INTEGUMENTARY: Denies rash, denies eczema. NEUROLOGICAL: Denies recent memory loss, no recent seizure activity. PSYCHIATRIC: Denies anxiety, denies depression. HEMATOLOGIC/LYMPHATIC: Denies anemia, denies enlarged lymph nodes. 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 History of Any Multi-Drug Resistant Organisms: None Reported Past Surgical History: Back Surgery, Hysterectomy, Orthopedic Surgery, Tonsillectomy Additional Past Surgical History / Comment(s): Ectopic with salpingectomy/ovary removed then hysterectomy d/t cancer and has part of one ovary left, kyphoplasty, R shoulder fracture with surgery/screws in place, right hip replacement Past Anesthesia/Blood Transfusion Reactions: No Reported Reaction Additional Past Anesthesia/Blood Transfusion Reaction / Comment(s): Pt believes she may have received blood years ago with ectopic . Past Psychological History: No Psychological Hx Reported Additional Psychological History / Comment(s): Pt resides alone in Senior [facility]. She is independent. Smoking Status: Current every day smoker Past Alcohol Use History: None Reported Additional Past Alcohol Use History / Comment(s): Pt started smoking in 1965 and was a 2 ppd smoker. Last September 2016 she started cutting back and is now down to 2 cigarettes a day to week. Past Drug Use History: None Reported Additional Drug Use History / Comment(s): None - Past Family History Mother Family Medical History: Dementia, Hypertension Additional Family Medical History / Comment(s): ALZHEIMERS Father Family Medical History: Myocardial Infarction ([place]) Additional Family Medical History / Comment(s): AT AGE 59 FROM [place] Brother(s) Family Medical History: Myocardial Infarction ([place]) Additional Family Medical History / Comment(s): ALSO AT AGE 59 FROM [place] AND A 2ND BROTHER W/VASCULAR DISEASE. Sister(s) Family Medical History: Cancer Additional Family Medical History / Comment(s): LUNG CANCER(SMOKER) Medications and Allergies Home Medications Medication Instructions Recorded Confirmed Type Albuterol Inhaler [Ventolin Hfa 2 puff INHALATION RT-Q4H PRN 09/28/17 08/22/23 History Inhaler] Atorvastatin Calcium [Lipitor] 40 mg PO HS 07/11/23 08/22/23 History Calcium Carbonate/Vitamin D3 1 tab PO DAILY 07/11/23 08/22/23 History [Calcium 600-Vit D3 10 mcg (400 Iu)] Co Q10 100 mg PO DAILY 07/11/23 08/22/23 History Fluticasone/Umeclidin/Vilanter 1 puff INHALATION RT-DAILY 07/11/23 08/22/23 Hi story [Jake Prado 100-62.5-25] Rivaroxaban [Xarelto] 20 mg PO DAILY@1500 08/22/23 08/22/23 History Allergies Allergy/AdvReac Type Severity Reaction Status Date / Time No Known Allergies Allergy Verified 08/22/23 16:37 Physical Exam Vitals: Vital Signs Temp Pulse Pulse Resp BP Pulse Ox 08/30/23 15:36 88 08/30/23 15:26 88 08/30/23 12:00 97.6 F 86 16 121/74 90 L 08/30/23 11:48 92 08/30/23 11:38 88 08/30/23 08:27 68 08/30/23 08:17 68 08/30/23 07:12 97.8 F 103 H 16 106/69 90 L 08/30/23 02:00 98.0 F 85 16 91 L 08/29/23 20:00 98.2 F 95 16 96/62 91 L Intake and Output 08/30/23 08/30/23 08/30/23 06:59 14:59 22:59 Intake Total 590 Output Total 1000 Balance -410 Intake: Oral 590 Output: Urine 1000 Other: Voiding Method Indwelling Catheter GENERAL EXAM: Alert, frail 73-year-old female, on room air, fairly comfortable in no apparent distress. HEAD: Normocephalic. EYES: Normal reaction of pupils, equal size. NOSE: Clear with pink turbinates. THROAT: No erythema or exudates. NECK: No masses, no JVD. CHEST: No chest wall deformity. LUNGS: Equal air entry with faint crackles in the posterior bases. CVS: S1 and S2 normal with no audible murmur, regular rhythm. ABDOMEN: Distended, normal bowel sounds, no guarding or rigidity. SPINE: No scoliosis or deformity SKIN: Multiple areas of ecchymosis CENTRAL NERVOUS SYSTEM: No focal deficits, tone is normal in all 4 extremities. EXTREMITIES: Bilateral lower extremity edema left greater than right with multiple areas of ecchymosis and discoloration more so on the left. Results - Laboratory Findings CBC and BMP: 08/30/23 06:03 08/30/23 06:03 PT/INR, D-dimer PT 16.1 sec (10.0-12.5) H 08/22/23 13:45 INR 1.6 (<1.2) H 08/22/23 13:45 Abnormal lab findings: Abnormal Labs 08/22/23 08/22/23 08/22/23 13:45 13:45 13:45 WBC 18.8 H RBC 2.52 L Hgb 7.1 L D Hct 22.3 L MCHC RDW 17.9 H Plt Count 473 H Immature Gran # Neutrophils # 17.4 H Lymphocytes # 0.6 L Eosinophils # Hypochromasia (manual) PT 16.1 H INR 1.6 H Sodium 130 L Potassium 5.2 H Carbon Dioxide 19 L BUN 68 H Creatinine 2.03 H Est GFR (CKD-EPI) BUN/Creatinine Ratio Glucose 100 H POC Glucose (mg/dL) Calcium 8.2 L Magnesium TIBC Transferrin Ferritin Total Bilirubin 1.9 H AST 89 H ALT 43 H Alkaline Phosphatase 428 H Total Protein 5.2 L Albumin 2.5 L Albumin/Globulin Ratio Amylase Lipase 977 H Methylmalonic Acid RBC Folate Crossmatch 08/23/23 08/23/23 08/23/23 06:55 06:55 13:05 WBC 17.68 H RBC 2.41 L Hgb 6.6 A* Hct 21.4 L MCHC 30.8 L RDW 17.9 H Plt Count Immature Gran # 0.14 H Neutrophils # 15.50 H Lymphocytes # Eosinophils # 0 L Hypochromasia (manual) 2+ A PT INR Sodium 130 L Potassium 5.8 H Carbon Dioxide 20.4 L BUN 66.3 H Creatinine 1.9 H Est GFR (CKD-EPI) 28 L BUN/Creatinine Ratio 34.89 H Glucose POC Glucose (mg/dL) Calcium 8.6 L Magnesium 2.5 H TIBC Transferrin Ferritin Total Bilirubin AST 153 H ALT 49 H Alkaline Phosphatase 425 H Total Protein 5.2 L Albumin 2.7 L Albumin/Globulin Ratio 1.08 L Amylase 300 H Lipase 236 H Methylmalonic Acid RBC Folate Crossmatch See Detail 08/23/23 08/23/23 08/24/23 13:45 19:00 06:55 WBC 15.65 H RBC 2.73 L Hgb 7.7 L Hct 25.2 L MCHC 30.6 L RDW 18.1 H Plt Count Immature Gran # Neutrophils # Lymphocytes # Eosinophils # Hypochromasia (manual) PT INR Sodium Potassium Carbon Dioxide BUN Creatinine Est GFR (CKD-EPI) BUN/Creatinine Ratio Glucose POC Glucose (mg/dL) Calcium Magnesium TIBC 200 L Transferrin 143.0 L Ferritin 3250.0 H Total Bilirubin AST ALT Alkaline Phosphatase Total Protein Albumin Albumin/Globulin Ratio Amylase Lipase Methylmalonic Acid 0.47 H RBC Folate 1,050 H Crossmatch 08/24/23 08/25/23 08/25/23 06:55 06:06 10:01 WBC 12.6 H RBC 2.72 L Hgb 7.9 L Hct 25.5 L MCHC RDW 18.6 H Plt Count Immature Gran # Neutrophils # 11.6 H Lymphocytes # 0.6 L Eosinophils # Hypochromasia (manual) PT INR Sodium 130 L 128 L Potassium 5.8 H Carbon Dioxide 20.9 L 21 L BUN 47.7 H 36 H Creatinine 1.34 H Est GFR (CKD-EPI) 37 L BUN/Creatinine Ratio 31.80 H Glucose POC Glucose (mg/dL) Calcium 8.6 L 8.1 L Magnesium TIBC Transferrin Ferritin Total Bilirubin AST ALT Alkaline Phosphatase Total Protein Albumin Albumin/Globulin Ratio Amylase Lipase Methylmalonic Acid RBC Folate Crossmatch 08/26/23 08/26/23 08/27/23 09:48 09:48 06:03 WBC 13.4 H 12.88 H RBC 2.64 L 2.49 L Hgb 7.7 L 6.9 A* Hct 25.3 L 22.9 L MCHC 30.3 L 30.1 L RDW 19.0 H 19.5 H Plt Count Immature Gran # 0.12 H Neutrophils # 12.4 H 11.23 H Lymphocytes # 0.5 L 0.62 L Eosinophils # Hypochromasia (manual) PT INR Sodium 130 L Potassium Carbon Dioxide BUN 25 H Creatinine Est GFR (CKD-EPI) BUN/Creatinine Ratio Glucose 107 H POC Glucose (mg/dL) Calcium 7.8 L Magnesium TIBC Transferrin Ferritin Total Bilirubin AST ALT Alkaline Phosphatase Total Protein Albumin Albumin/Globulin Ratio Amylase Lipase Methylmalonic Acid RBC Folate Crossmatch 08/27/23 08/27/23 08/27/23 06:03 12:57 20:42 WBC RBC Hgb Hct MCHC RDW Plt Count Immature Gran # Neutrophils # Lymphocytes # Eosinophils # Hypochromasia (manual) PT INR Sodium 134 L Potassium Carbon Dioxide BUN Creatinine Est GFR (CKD-EPI) BUN/Creatinine Ratio Glucose POC Glucose (mg/dL) 124 H Calcium 8.1 L Magnesium TIBC Transferrin Ferritin Total Bilirubin AST ALT Alkaline Phosphatase Total Protein Albumin Albumin/Globulin Ratio Amylase Lipase Methylmalonic Acid RBC Folate Crossmatch See Detail 08/28/23 08/28/23 08/28/23 04:46 04:46 12:29 WBC 13.10 H RBC 2.83 L Hgb 8.1 L Hct 25.8 L MCHC 31.4 L RDW 18.8 H Plt Count Immature Gran # 0.15 H Neutrophils # 11.35 H Lymphocytes # 0.60 L Eosinophils # Hypochromasia (manual) PT INR Sodium Potassium Carbon Dioxide BUN Creatinine Est GFR (CKD-EPI) BUN/Creatinine Ratio 23.25 H Glucose POC Glucose (mg/dL) 114 H Calcium 7.6 L Magnesium TIBC Transferrin Ferritin Total Bilirubin AST ALT Alkaline Phosphatase Total Protein Albumin Albumin/Globulin Ratio Amylase Lipase Methylmalonic Acid RBC Folate Crossmatch 08/29/23 08/29/23 08/30/23 06:36 11:53 06:03 WBC 14.4 H 16.66 H RBC 2.92 L 3.23 L Hgb 8.7 L 9.3 L Hct 27.9 L 29.8 L MCHC 31.2 L RDW 17.9 H 19.4 H Plt Count Immature Gran # 0.32 H Neutrophils # 13.1 H 14.38 H Lymphocytes # 0.5 L Eosinophils # Hypochromasia (manual) PT INR Sodium Potassium Carbon Dioxide BUN Creatinine Est GFR (CKD-EPI) BUN/Creatinine Ratio 24.14 H Glucose POC Glucose (mg/dL) Calcium 7.7 L Magnesium TIBC Transferrin Ferritin Total Bilirubin AST ALT Alkaline Phosphatase Total Protein Albumin Albumin/Globulin Ratio Amylase Lipase Methylmalonic Acid RBC Folate Crossmatch 08/30/23 06:03 WBC RBC Hgb Hct MCHC RDW Plt Count Immature Gran # Neutrophils # Lymphocytes # Eosinophils # Hypochromasia (manual) PT INR Sodium 134 L Potassium Carbon Dioxide 20.6 L BUN Creatinine Est GFR (CKD-EPI) BUN/Creatinine Ratio 21.75 H Glucose POC Glucose (mg/dL) Calcium 8.0 L Magnesium TIBC Transferrin Ferritin Total Bilirubin AST ALT Alkaline Phosphatase Total Protein Albumin Albumin/Globulin Ratio Amylase Lipase Methylmalonic Acid RBC Folate Crossmatch - Diagnostic Findings Chest x-ray: image reviewed Assessment and Plan Assessment: Left leg pain, swelling and discoloration secondary to occlusion of the left superficial femoral artery extending from its origin to the popliteal artery. Reconstitution with poor visualization of the anterior posterior tibial arteries Liver mass with biopsy on 08/25/2023 revealing fragments of necrotic cellular material suggestive of necrotic neoplasm, insufficient for diagnosis due to lack of viable tissue Right apical masslike density. Scattered pulmonary nodules mid and lower lung beatty. Patchy basilar infiltrates. Small right effusion. Suspect metastatic disease Recent surgery on 08/04/2023 with left common femoral thromboendarterectomy for occlusive disease. Was on Xarelto History of DVT/PE History of abdominal aortic aneurysm Chronic and ongoing tobacco dependence Anorexia/cachexia syndrome with a BMI of 23.4 kg/m Plan: The patient was seen and evaluated Chest x-ray, labs and medications reviewed Ultrasound of the chest pending The patient is scheduled for vascular surgery on 09/01/2023 May consider right-sided thoracentesis for diagnosis May consider bronchoscopy with biopsies following recovery from surgery We will continue to follow and make further recommendations based on her clinical status I have personally seen and examined the patient, performed the documentation and the assessment and plan as written. Number of minutes spent on the visit: 20.
[2023-08-31] MEDS ORDERED: Magnesium Replacement Protocol 1 EACH MISC MISCELLANE PRN (05:30)
--- NOTE | 2023-08-31 06:14 | P.PN ---
Subjective Progress Note Date: 08/30/23 Patient is a 73-year-old female with a past medical history of DVT/PE on anticoagulation, peripheral vascular disease with left leg pain status post femoral to femoral bypass and left common femoral thromboendarterectomy on 08/04/2023, history of cholecystectomy on 07/11/2023 presents to ER with complaints of left lower extremity pain swelling and discoloration. Patient has been having chronic pain which has improved during the last 7 to 10 days. Patient does have history of liver mass and her physician is planning to get PET scan as an outpatient.. Patient has not seen oncology before. Otherwise patient denied any complaints of fever or chills. No nausea vomiting. No diarrhea. No cough or sputum production. No chest pain. EKG showed sinus rhythm. CT of the abdomen pelvis showed post femoral-femoral bypass changes with fluid collection around the graft. 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 Similar infrarenal abdominal aortic aneurysm back to at least 01/04/2023. Measuring 3.7 x 4.4 cm. Laboratory data showed WBC 18.8 hemoglobin 7.1, MCV 88.7 and platelets 473 INR 1.6, sodium 130 potassium 5.2 chloride 100 bicarb is 19 BUN 68, creatinine 2.03 and blood sugar 100 Total bili 1.9 AST 89 ALT 43 and alk phos 428 and albumin 2.5 and lipase level 977 08/24/2023 Patient is seen and evaluated in follow-up today being followed by vascular surgery along with oncology and interventional radiology was consulted for possible biopsy. Patient continued on empiric antibiotics with concerns of possible cellulitis of the lower extremities. Patient evaluated by vascular surgery as patient is recent femoropopliteal bypass and left common femoral thromboendarterectomy with no plans of revascularization interventions at this time. Patient okay to resume anticoagulation once cleared by oncology. Will hold on anticoagulation for now as hemoglobin is low and post 1 unit of PRBCs hemoglobin is 7.7 today. Discussing possible biopsy of the liver and will hold on anticoagulation including holding subcutaneous heparin for now. Interventional radiology consulted and pending. Patient with significant weakness would recommend being evaluated by PT/OT therapy. Overall treatment plan discussed with patient and would like to receive treatment if available. Will discuss further with oncology once biopsy is performed. 08/25/2023 Patient is seen in follow-up today currently n.p.o. scheduled to undergo ultrasound for possible liver biopsy with interventional radiology. Patient maintained on antibiotics as severe and patient is maintained on Dilaudid. Will also add [place] for breakthrough pain as patient reports 10/10 on the pain scale. Vascular surgery evaluated the patient with no plans of revascularization or surgical intervention on that left lower extremity. No contraindication to resume anticoagulation and Xarelto is being resumed. Patient is afebrile with no reports of chest pain or shortness of breath. Patient is currently wearing 2 L although does not normally wear oxygen outpatient. Encouraged oral intake and increased activity as tolerated. Patient to undergo biopsy and awaiting pathology as there is concerns of metastasis from the lungs as well. Overall prognosis is poor and guarded left at this time. 08/26/2023 Patient is resting in the bed. Awake alert and oriented x 3. No complaints of chest pain or shortness of breath. Patient still having left lower extremity discoloration of the toes. Swelling is about the same. Right lower extremity swelling did improve. Patient is s/p liver biopsy. Continued on anticoagulation with Xarelto. Patient is on antibiotics, cefazolin. Laboratory showed WBC 13.4 hemoglobin 7.7 and platelets 217 Sodium 130 potassium 3.5 chloride 101 bicarb is 24 BUN 25 and creatinine 0.93 and blood sugar 103 and calcium 7.8 and magnesium 2.2 08/27/2023 Patient is resting in the bed. Awake alert and oriented x 3. No nausea vomiting abdominal pain or diarrhea. Currently on room air. Still having left lower extremity discoloration of the toes and swelling. Hemoglobin 6.9 this morning and is being transfused with 1 unit of PRBC Other laboratory data showed WBC trending down to 12.8 hemoglobin 6.9 and platelets 218 sodium 134 potassium 4.3 chloride 103 bicarb is 23.5 BUN 19 and creatinine 1.0 and blood sugar 96 and calcium 8.1. Patient is on anticoagulation with Xarelto and also antibiotics cefazolin. Pain is controlled. 08/28/2023 Patient is seen and evaluated in follow-up today with multiple medical consultations following including vascular surgery and oncology. Patient cont inues to have a white count although is trending down and will follow-up with repeat labs. Patient is status post biopsy of the liver which is pending. Patient continues to report significant pain in the left lower extremity with inability to ambulate and was evaluated by vascular surgery with no plans of revascularization and also discussed with the patient about possible amputation for palliative pain relief as there are no plans or availabilities for further surgical intervention on that left lower extremity. Anticoagulation resumed. Patient remains on cefazolin with concerns of possible cellulitis of the lower extremities. Recommend repeat labs in the a.m. and continued PT/OT therapy 08/29/2023 Patient is seen in follow-up this morning with vascular and oncology following. Patient continues to report significant 10/10 pain of the left lower extremity and repeat CT angiogram being ordered. Patient underwent biopsy of the liver although suggestive of metastatic disease, specimen was insufficient for diagnosis. Oncology discussing looking into CT chest to evaluate the lung no dules for possible biopsy and/or bronchoscopy. Patient is afebrile, white count remains slightly elevated, no reports of chest pain or shortness of breath and patient is on room air. Patient continues on antibiotics with concerns of lower extremity cellulitis as well. Encouraged to increase activity as tolerated although patient reports unable to stand due to the pain on the left leg. Recommend PT/OT therapy daily. 08/30/2023 Patient is seen and evaluated today with vascular surgery following and patient underwent CT angio runoff with plans for vascular intervention on Monday as the graft on the left is down and patient reports continued significant left leg pain and inability to ambulate or place any weight on it due to the pain. Multiple medications including Dilaudid, [place], gabapentin have been added with minimal pain relief. Patient also had CT chest with multiple lung nodules noted and oncology following recommending pulmonary consultation for possible bronchoscopy with biopsy for confirmation of diagnosis. Patient maintained on Xarelto and will be placed on hold for surgical intervention for Monday. Patient is afebrile with no reported chest pain or shortness of breath. Patient not eating very much she reports does not have much of an appetite. Patient is getting anxious about overall treatment plan moving forward. Overall prognosis is extremely poor and guarded. Patient remains full code Medications reviewed. Review of systems: Constitutional: No reports of fatigue, fever, or chills Cardiovascular: No reports of chest pain or palpitations Respiratory: No reports of shortness of breath or cough GI: No reports of nausea, vomiting, or diarrhea, no reports abdominal pain, reports not much of an appetite : No reports of dysuria or retention Neurovascular: reports of generalized weakness, reports continued left lower extremity pain 10/10 All medications have been reviewed PHYSICAL EXAMINATION: Patient is sitting up in the bed , elderly appearing, thin built, well- developed, awake alert and oriented.. HEENT: Normocephalic. Neck is supple. Pupils reactive. Nostrils clear. Oral cavity is moist. Neck reveals no JVD, carotid bruits, or thyromegaly. CHEST EXAMINATION: Trachea is central. Symmetrical expansion. Bibasilar diminished sounds. No wheezing. Nonlabored breathing.. CARDIAC: Normal S1, S2 with no gallops. No murmurs ABDOMEN: Soft. Tender on palpation, bowel sounds normal. Large firm liver noted on the right. No abdominal bruits. Extremities: Bilateral lower extremity swelling with skin dislocation/mottling of the left lower extremity. cyanosis noted of the toes with some swelling and is severe pain 10/10 on light palpation Neurologically awake, alert, oriented x3. Patient is able to move all extremities.. No focal deficits noted. diffusely weak Skin: No rash or skin lesions. Cyanosis noted on lower extremities as well as upper extremities, more so on the right hand Psychiatric: Cooperative. Non-suicidal, anxious. Musculoskeletal: No joint swelling or deformity. Normal range of motion. Assessment: Bilateral lower extremity pain, swelling with recent history of femorofemoral bypass and left common femoral thromboendarterectomy Possible bilateral lower extremity cellulitis, present on admission Acute kidney injury likely prerenal, trending down Leukocytosis with WBC 18.8, trending down History of DVT/PE and on anticoagulation with Xarelto at home, anticoagulation being placed on hold for vascular intervention on Monday Anemia, likely of chronic disease Hyponatremia secondary to poor oral intake Mild hyperkalemia 5.2 on admission likely due to SIX[place], improved Large liver mass with metastatic lesions to lung.. Patient is scheduled for outpatient PET scan. Status post liver biopsy 08/25/2023, likely metastatic disease although specimen was insufficient for diagnosis Abdominal aortic aneurysm stable from recent study Currently everyday smoker Moderate protein calorie malnutrition with a BMI of 23.4 GI prophylaxis DVT prophylaxis on Xarelto Full code Plan: Patient is continued on IV hydration with normal saline. Continued on antibiotics in the form of cefazolin for possible underlying cellulitis. Patient WBCs elevated although trending down and will follow-up with repeat labs. Encouraged oral intake as patient is not eating very well. Patient reports does not have much of an appetite Vascular surgery evaluated the patient and patient also underwent CT of the lower extremity as well as chest and apparently the graft is down and vascular surgery is holding anticoagulation with plans of intervention on 09/01/2023 Oncology following status post biopsy and there was noted necrotic tissue and likely metastatic disease although specimen was insufficient for diagnosis. Oncology is aware and patient underwent CT chest for evaluation with multiple lung nodules and has consulted pulmonary for further evaluation and possible bronchoscopy with biopsy for diagnosis. Continue with pain management. Patient continues to report severe pain with Dilaudid and [place], gabapentin Recommend PT/OT therapy evaluation daily as patient is significantly weak and has not been up and walking. Patient reports unable to place any weight on the left lower extremity due to severe pain Prognosis is extremely poor guarded with multiple medical problems and comorbid conditions. Patient currently remains a full code and would like to receive treatment if there are options available. Will wait CT chest and discuss further with oncology about treatment plan moving forward. The impression and plan of care has been dictated by Amara Marrero, Nurse Practitioner as directed. Dr. Dell MD I have performed a history and examination and MDM of this patient, discussed the same with the dictator, and agree with the dictator's assessment and plan as written ,documented as a scribe. Based on total visit time, I have performed more than 50% of the visit. In the form of cefazolin with concerns of cellulitis of the lower extremities. Left lower extremity pain Objective - Vital Signs Vital signs: Vital Signs Temp 98.1 F 08/31/23 02:00 Pulse 68 08/31/23 06:08 Resp 56 H 08/31/23 02:00 BP 115/67 08/31/23 02:00 Pulse Ox 99 08/31/23 02:00 FiO2 21 08/27/23 20:23 Intake & Output 08/30/23 08/30/23 08/31/23 06:59 18:59 06:59 Intake Total 590 640 Output Total 1000 700 500 Balance -410 -700 140 Intake: Oral 590 100 Other 540 Output: Urine 1000 700 500 Other: Voiding Method Indwelling Catheter Indwelling Catheter Indwelling Catheter - Labs CBC & Chem 7: 08/30/23 06:03 08/30/23 06:03 Labs: Abnormal Lab Results - Last 24 Hours (Table) 03/06/24 03/06/24 Range/Units 06:03 06:03 WBC 16.66 H (4.50-10.00) X 10*3/uL RBC 3.23 L (4.10-5.20) X 10*6/uL Hgb 9.3 L (12.0-15.0) g/dL Hct 29.8 L (37.2-46.3) % MCHC 31.2 L (32.0-37.0) g/dL RDW 19.4 H (11.5-14.5) % Immature Gran # 0.32 H (0.00-0.04) X 10*3/uL Neutrophils # 14.38 H (1.80-7.70) X 10*3/uL Sodium 134 L (135-145) mmol/L Carbon Dioxide 20.6 L (21.6-31.8) mmol/L BUN/Creatinine Ratio 21.75 H (12.00-20.00) Ratio Calcium 8.0 L (8.7-10.3) mg/dL
[2023-08-31] MEDS: MAGNESIUM SULFATE-D5W PMX 1 GM in DEXTROSE/WATER 1 100ML.BAG IVPB ONE (06:29)
--- NOTE | 2023-08-31 07:42 | US ---
EXAMINATION TYPE: US chest DATE OF EXAM: 08/30/2023 COMPARISON: CLINICAL INDICATION: Female, 73 years old with history of Markings for thoracentesis by pulmonary sta ff; TECHNIQUE: Targeted ultrasound of the posterior lower bilateral hemithoraces EXAM MEASUREMENTS: Right Pleural Effusion pocket size: 2.8 cm Left Pleural Effusion pocket size: 1.9 cm Suboptimal scanning due to patient unable to sit up Right side NOT marked for possible thoracentesis outside the dept. due to small fluid pocket Left side NOT marked for possible thoracentesis outside the dept. due to small fluid pocket Pulmonologists are able to review the images in the patient?s EMR. IMPRESSIONS: As above
[2023-08-31 10:56] LABS: Basophils # (A) 0.02 X 10*3/uL (0.00-0.10); Basophils % (A) 0.1 %; Eosinophils # (A) 0.03 X 10*3/uL (0.04-0.35); Eosinophils % (A) 0.2 %; HCT 25.9 % (37.2-46.3); Lymphocytes # (A) 0.63 X 10*3/uL (0.90-5.00); Lymphocytes % (A) 4.4 %; MCH 28.8 pg (27.0-32.0); MCHC 30.9 g/dL (32.0-37.0); MCV 93.2 FL (80.0-97.0); Mean Platelet Volume 10.2 FL (9.5-12.2); Monocytes # (A) 0.69 X 10*3/uL (0.20-1.00); Monocytes % (A) 4.9 %; NRBC Per 100 WBC 0 X 10*3/uL (0.00-0.01); Neutrophils # (A) 12.54 X 10*3/uL (1.80-7.70); Neutrophils % (A) 88.3 %; Platelet Count 227 X 10*3/uL (140-440); RBC 2.78 X 10*6/uL (4.10-5.20); RDW 19.2 % (11.5-14.5); WBC 14.21 X 10*3/uL (4.50-10.00)
[2023-08-31 11:10] LABS: BUN/Creat Ratio 24.86 Ratio (12.00-20.00); Blood Urea Nitrogen 17.4 mg/dL (9.0-27.0); Carbon Dioxide 23.6 mmol/L (21.6-31.8); Chloride 102 mmol/L (96-109); Glucose 80 mg/dL (70-110); Sodium 134 mmol/L (135-145)
--- NOTE | 2023-08-31 12:12 | P.PN ---
Subjective Progress Note Date: 08/31/23 Principal diagnosis: Peripheral arterial disease Patient seen and examined today as a follow-up. No changes through the night. Pulmonology is following, deferring bronchoscopy until after revascularization. Objective - Vital Signs Vital signs: Vital Signs Temp 97.5 F L 08/31/23 07:09 Pulse 80 08/31/23 07:09 Resp 18 08/31/23 07:09 BP 111/69 08/31/23 07:09 Pulse Ox 91 L 08/31/23 07:09 FiO2 21 08/27/23 20:23 Intake & Output 08/30/23 08/31/23 08/31/23 18:59 06:59 18:59 Intake Total 640 Output Total 700 500 Balance -700 140 Intake: Oral 100 Other 540 Output: Urine 700 500 Other: Voiding Method Indwelling Catheter Indwelling Catheter Indwelling Catheter - Exam General appearance: The patient is alert, oriented, appears in no acute distress. HET: Head is normocephalic and atraumatic. Pupils are equal and reactive. Neck: Supple. Abdomen: Hepatomegaly, tenderness. Extremities: Bilateral lower extremity swelling with weeping. Left toes purple, mottled, cold. Bypass non-palpable. Neurological: No focal deficits. - Labs CBC & Chem 7: 08/31/23 06:51 08/31/23 06:51 Labs: Abnormal Lab Results - Last 24 Hours (Table) 08/31/23 08/31/23 Range/Units 06:51 06:51 WBC 14.21 H (4.50-10.00) X 10*3/uL RBC 2.78 L (4.10-5.20) X 10*6/uL Hgb 8.0 L (12.0-15.0) g/dL Hct 25.9 L (37.2-46.3) % MCHC 30.9 L (32.0-37.0) g/dL RDW 19.2 H (11.5-14.5) % Immature Gran # 0.30 H (0.00-0.04) X 10*3/uL Neutrophils # 12.54 H (1.80-7.70) X 10*3/uL Lymphocytes # 0.63 L (0.90-5.00) X 10*3/uL Eosinophils # 0.03 L (0.04-0.35) X 10*3/uL Sodium 134 L (135-145) mmol/L BUN/Creatinine Ratio 24.86 H (12.00-20.00) Ratio Calcium 8.0 L (8.7-10.3) mg/dL Assessment and Plan Assessment: 1. Left femoral and popliteal artery occlusive disease status post femorofemoral bypass with CryoVein, occluded 2. Left lower extremity pain 3. Large liver mass with metastatic disease throughout the lungs 4. Acute kidney injury 5. History of DVT and pulmonary embolism Plan: 1. Hold Xarelto 2. Continue pain management. Gabapentin added for pain management 3. Continue with recommendations from oncology 4. CT angiogram chest abdomen pelvis with runoff ordered and reviewed. Femorofemoral bypass graft down. 5. Will plan for axillofemoral bypass graft on 09/01/2023 6. N.p.o. after midnight Thank you for this consultation, we will continue to follow. The impression and plan of care has been dictated as directed. Dr. Portillo I performed a history and examination of this patient, discussed the same with the dictator. I agree with the dictator's note ,documented as a scribe. Any additional findings or plans will be noted.
--- NOTE | 2023-08-31 14:21 | P.PN ---
Subjective Progress Note Date: 08/31/23 This is a 73-year-old female patient with a known history of pulmonary embolism, DVT of the left leg, uterine cancer with previous hysterectomy, chronic obstructive pulmonary disease with chronic and ongoing tobacco dependence. She had presented here to the emergency room back on August 22, 2023 with c omplaints of left leg pain. She has had chronic pain and had previously had surgery 2 weeks prior to her arrival here. She also was known to have suspected liver cancer with metastasis and was waiting on an outpatient PET scan. CT scan of the abdomen did reveal a post femoral-femoral bypass changes with fluid collection around the graft. There is a large hepatic mass with metastatic disease throughout the lungs. Similar infrarenal abdominal aortic aneurysm from previous scan in December 2022. She did have a liver biopsy here on August 25, 2023 that revealed necrotic cellular material suggestive of necrotic neoplasm but insufficient for diagnosis due to lack of viable tissue. We were consulted today for possible lung biopsy. 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 Her Xarelto is on hold and they are planning for axillofemoral bypass grafting on 09/01/2023. She is seen today in consultation on the regular medical floor. She is currently sitting up in bed. She is having quite a bit of musculoskeletal pain. She is also having quite a bit of left lower extremity pain. She is maintaining O2 saturations in the 90s on room air. She is afebrile. Hemodynamically stable. She denies any worsening shortness of breath, cough or congestion. No hemoptysis. The patient is seen today August 31, 2023 in follow-up on the regular medical floor. She is currently sitting up in bed having breakfast. Awake and alert in no acute distress. Maintaining O2 saturations in the 90s on room air. Ultrasound of the chest revealed small bilateral pleural effusions with 2.8 cm fluid on the right and 1.9 cm on the left. Not marked for thoracentesis. She is status post 2 units of packed red blood cells this admission. Current hemoglobin 8.0. Platelets 227. White count 14.2. Sodium 134. Potassium 4.0. Bicarb 24. BUN 17. Creatinine 0.7. Glucose 80. She remains on cefazolin. Normal saline at 50 MLS per hour. Objective - Vital Signs Vital signs: Vital Signs Temp 97.8 F 08/31/23 13:18 Pulse 104 H 08/31/23 13:18 Resp 16 08/31/23 13:18 BP 111/74 08/31/23 13:18 Pulse Ox 99 08/31/23 13:18 FiO2 21 08/27/23 20:23 Intake & Output 08/30/23 08/31/23 08/31/23 18:59 06:59 18:59 Intake Total 640 240 Output Total 700 500 Balance -700 140 240 Intake: Oral 100 240 Other 540 Output: Urine 700 500 Other: Voiding Method Indwelling Catheter Indwelling Catheter Indwelling Catheter - Exam GENERAL EXAM: Alert, weak 73-year-old female, on room air, fairly comfortable in no apparent distress. HEAD: Normocephalic. EYES: Normal reaction of pupils, equal size. NOSE: Clear with pink turbinates. THROAT: No erythema or exudates. NECK: No masses, no JVD. CHEST: No chest wall deformity. LUNGS: Equal air entry with faint crackles in the posterior bases. CVS: S1 and S2 normal with no audible murmur, regular rhythm. ABDOMEN: Distended, normal bowel sounds, no guarding or rigidity. SPINE: No scoliosis or deformity SKIN: Multiple areas of ecchymosis CENTRAL NERVOUS SYSTEM: No focal deficits, tone is normal in all 4 extremities. EXTREMITIES: Bilateral lower extremity edema left greater than right with multiple areas of ecchymosis and discoloration more so on the left. Dressing to the left lower extremity dry and intact - Labs CBC & Chem 7: 08/31/23 06:51 08/31/23 06:51 Labs: Abnormal Lab Results - Last 24 Hours (Table) 08/31/23 08/31/23 Range/Units 06:51 06:51 WBC 14.21 H (4.50-10.00) X 10*3/uL RBC 2.78 L (4.10-5.20) X 10*6/uL Hgb 8.0 L (12.0-15.0) g/dL Hct 25.9 L (37.2-46.3) % MCHC 30.9 L (32.0-37.0) g/dL RDW 19.2 H (11.5-14.5) % Immature Gran # 0.30 H (0.00-0.04) X 10*3/uL Neutrophils # 12.54 H (1.80-7.70) X 10*3/uL Lymphocytes # 0.63 L (0.90-5.00) X 10*3/uL Eosinophils # 0.03 L (0.04-0.35) X 10*3/uL Sodium 134 L (135-145) mmol/L BUN/Creatinine Ratio 24.86 H (12.00-20.00) Ratio Calcium 8.0 L (8.7-10.3) mg/dL Assessment and Plan Assessment: Left leg pain, swelling and discoloration secondary to occlusion of the left superficial femoral artery extending from its origin to the popliteal artery. Reconstitution with poor visualization of the anterior posterior tibial arteries Liver mass with biopsy on 08/25/2023 revealing fragments of necrotic cellular material suggestive of necrotic neoplasm, insufficient for diagnosis due to lack of viable tissue Right apical masslike density. Scattered pulmonary nodules mid and lower lung beatty. Patchy basilar infiltrates. Small right effusion. Suspect metastatic disease Recent surgery on 08/04/2023 with left common femoral thromboendarterectomy for occlusive disease. Was on Xarelto History of DVT/PE History of abdominal aortic aneurysm Chronic and ongoing tobacco dependence Anorexia/cachexia syndrome with a BMI of 23.4 kg/m Plan: The patient was seen and evaluated Labs and medications reviewed Ultrasound of the chest revealing only small pleural effusions The patient is scheduled for vascular surgery on 09/01/2023 May consider bronchoscopy with biopsies following recovery from surgery We will continue to follow I have personally seen and examined the patient, performed the documentation and the assessment and plan as written. Number of minutes spent on the visit: 10.
--- NOTE | 2023-08-31 18:24 | P.PN ---
Subjective Progress Note Date: 08/31/23 No acute changes, reporting persisting LLE pain. Scheduled for bypass surgery of LLE tomorrow with vascular surgery. Objective - Vital Signs Vital signs: Vital Signs Temp 97.5 F L 08/31/23 07:09 Pulse 80 08/31/23 07:09 Resp 18 08/31/23 07:09 BP 111/69 08/31/23 07:09 Pulse Ox 91 L 08/31/23 07:09 FiO2 21 08/27/23 20:23 Intake & Output 08/30/23 08/31/23 08/31/23 18:59 06:59 18:59 Intake Total 640 Output Total 700 500 Balance -700 140 Intake: Oral 100 Other 540 Output: Urine 700 500 Other: Voiding Method Indwelling Catheter Indwelling Catheter Indwelling Catheter - Constitutional General appearance: Present: average body habitus, no acute distress - EENT Eyes: Present: anicteric sclerae, EOMI ENT: Present: hearing grossly normal - Respiratory Details: breathing is even and unlabored - Integumentary Integumentary Comment(s): LLE discolored, cool to touch - Musculoskeletal Musculoskeletal: Present: generalized weakness - Psychiatric Psychiatric: Present: A&O x's 3 - Labs CBC & Chem 7: 08/31/23 06:51 08/31/23 06:51 Labs: Abnormal Lab Results - Last 24 Hours (Table) 08/31/23 08/31/23 Range/Units 06:51 06:51 WBC 14.21 H (4.50-10.00) X 10*3/uL RBC 2.78 L (4.10-5.20) X 10*6/uL Hgb 8.0 L (12.0-15.0) g/dL Hct 25.9 L (37.2-46.3) % MCHC 30.9 L (32.0-37.0) g/dL RDW 19.2 H (11.5-14.5) % Immature Gran # 0.30 H (0.00-0.04) X 10*3/uL Neutrophils # 12.54 H (1.80-7.70) X 10*3/uL Lymphocytes # 0.63 L (0.90-5.00) X 10*3/uL Eosinophils # 0.03 L (0.04-0.35) X 10*3/uL Sodium 134 L (135-145) mmol/L BUN/Creatinine Ratio 24.86 H (12.00-20.00) Ratio Calcium 8.0 L (8.7-10.3) mg/dL - Imaging and Cardiology CT scan - abdomen: report reviewed CT scan - chest: report reviewed Assessment and Plan (1) Abdominal mass Current Visit: Yes Status: Acute Priority: High Code(s): R19.00 - INTRA- ABD AND PELVIC SWELLING, MASS AND LUMP, UNSP SITE SNOMED Code(s): 221691878 (2) Acute kidney injury Current Visit: Yes Status: Acute Priority: High Code(s): N17.9 - ACUTE KIDNEY FAILURE, UNSPECIFIED SNOMED Code(s): 29357669 (3) Leg pain Current Visit: Yes Status: Acute Priority: High Code(s): M79.606 - PAIN IN LEG, UNSPECIFIED SNOMED Code(s): 94339200 (4) Anemia Current Visit: Yes Status: Acute Priority: High Code(s): D64.9 - ANEMIA, UNSPECIFIED SNOMED Code(s): 035707291 (5) Lung mass Current Visit: Yes Status: Acute Priority: High Code(s): R91.8 - OTHER NONSPECIFIC ABNORMAL FINDING OF LUNG FIELD SNOMED Code(s): 040630214 Plan: Liver mass, metastatic disease: -Newly diagnosed suspected metastatic liver cancer. She was recently referred to Dr Ad Gruber for evaluation for liver mass, but has yet to establish care. Patient had CT abdomen with contrast on 07/21/2023 which revealed 10 x 14 cm ill- defined mass in the left liver that was not present on CTA abdomen on 01/04/2023. PET CT was scheduled but has yet to be obtained. -Upon admission CT abdomen pelvis without contrast revealed post femoral bypass changes with fluid collection around graft. New large hepatic mass measuring 18.1 x 12.5 cm with metastatic disease throughout the lungs. -Tumor markers ordered. AFP, CEA, and Ca 19-9 normal. Liver biopsy ordered -S/p liver biopsy. Pathology revealed necrotic cellular material suggestive of necrotic neoplasm, however it was insufficient for diagnosis. CTA chest/abd with runoff ordered. Scan revealed liver mass measuring 18 x 10 cm. Right upper lobe lung mass like consolidation as well as scattered pulmonary nodules throughout the lungs. Cavitary lesion in the right lower lung measuring 5.1 x 3.8 cm. Masslike consolidation in the lung apex measuring 3.7 x 2.5 cm. Pulmonary consult placed. No plan for bronch/biopsy at this time. Chest US did not reveal enough fluid for thoracentesis. Will revaluate after vascular procedure to assess for thora vs bronch -Will await further input from pulmonology team in regards to possible thoracentsis vs bronch. If not able to be obtained, will try to reattempt liver biopsy once recovered from vascular procedure of LLE Pt updated on results and POC was agreeable to proceed with further workup Anemia: -Upon admission CBC revealed WBC 18.8, hemoglobin 7.1, platelets 473,000. Upon trending labs, hemoglobin normal at 13.0 approx 5 weeks ago. Pt denies any episodes of acute bleeding or melena -Anemia workup obtained. No nutritional deficiencies noted. Anemia labs consistent with anemia of inflammation -Has received 2 units PRBCs this admission. Hgb stable, 9.7 today -Please transfuse for hgb < 7 or if symptomatic -Will continue to monitor DVT hx/leg pain -Underwent bypass with CryoVein on 08/04/2023 and left common femoral thromboendarterectomy for left femoral and popliteal arterial occlusive disease. 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 Doppler of bilateral lower extremities on 07/27/2023 revealed chronic appearing deep vein thrombosis within the left popliteal vein and left great saphenous vein. No acute DVT noted bilaterally -Scheduled for bypass of left lower extremity on 08/31 -Defer to vascular surgery for management
--- NOTE | 2023-09-01 04:52 | P.PN ---
Subjective Progress Note Date: 08/31/23 Patient is a 73-year-old female with a past medical history of DVT/PE on anticoagulation, peripheral vascular disease with left leg pain status post femoral to femoral bypass and left common femoral thromboendarterectomy on 08/04/2023, history of cholecystectomy on 07/11/2023 presents to ER with complaints of left lower extremity pain swelling and discoloration. Patient has been having chronic pain which has improved during the last 7 to 10 days. Patient does have history of liver mass and her physician is planning to get PET scan as an outpatient.. Patient has not seen oncology before. Otherwise patient denied any complaints of fever or chills. No nausea vomiting. No diarrhea. No cough or sputum production. No chest pain. EKG showed sinus rhythm. CT of the abdomen pelvis showed post femoral-femoral bypass changes with fluid collection around the graft. 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 Similar infrarenal abdominal aortic aneurysm back to at least 01/04/2023. Measuring 3.7 x 4.4 cm. Laboratory data showed WBC 18.8 hemoglobin 7.1, MCV 88.7 and platelets 473 INR 1.6, sodium 130 potassium 5.2 chloride 100 bicarb is 19 BUN 68, creatinine 2.03 and blood sugar 100 Total bili 1.9 AST 89 ALT 43 and alk phos 428 and albumin 2.5 and lipase level 977 08/24/2023 Patient is seen and evaluated in follow-up today being followed by vascular surgery along with oncology and interventional radiology was consulted for possible biopsy. Patient continued on empiric antibiotics with concerns of possible cellulitis of the lower extremities. Patient evaluated by vascular surgery as patient is recent femoropopliteal bypass and left common femoral thromboendarterectomy with no plans of revascularization interventions at this time. Patient okay to resume anticoagulation once cleared by oncology. Will hold on anticoagulation for now as hemoglobin is low and post 1 unit of PRBCs hemoglobin is 7.7 today. Discussing possible biopsy of the liver and will hold on anticoagulation including holding subcutaneous heparin for now. Interventional radiology consulted and pending. Patient with significant weakness would recommend being evaluated by PT/OT therapy. Overall treatment plan discussed with patient and would like to receive treatment if available. Will discuss further with oncology once biopsy is performed. 08/25/2023 Patient is seen in follow-up today currently n.p.o. scheduled to undergo ultrasound for possible liver biopsy with interventional radiology. Patient maintained on antibiotics as severe and patient is maintained on Dilaudid. Will also add [place] for breakthrough pain as patient reports 10/10 on the pain scale. Vascular surgery evaluated the patient with no plans of revascularization or surgical intervention on that left lower extremity. No contraindication to resume anticoagulation and Xarelto is being resumed. Patient is afebrile with no reports of chest pain or shortness of breath. Patient is currently wearing 2 L although does not normally wear oxygen outpatient. Encouraged oral intake and increased activity as tolerated. Patient to undergo biopsy and awaiting pathology as there is concerns of metastasis from the lungs as well. Overall prognosis is poor and guarded left at this time. 08/26/2023 Patient is resting in the bed. Awake alert and oriented x 3. No complaints of chest pain or shortness of breath. Patient still having left lower extremity discoloration of the toes. Swelling is about the same. Right lower extremity swelling did improve. Patient is s/p liver biopsy. Continued on anticoagulation with Xarelto. Patient is on antibiotics, cefazolin. Laboratory showed WBC 13.4 hemoglobin 7.7 and platelets 217 Sodium 130 potassium 3.5 chloride 101 bicarb is 24 BUN 25 and creatinine 0.93 and blood sugar 103 and calcium 7.8 and magnesium 2.2 08/27/2023 Patient is resting in the bed. Awake alert and oriented x 3. No nausea vomiting abdominal pain or diarrhea. Currently on room air. Still having left lower extremity discoloration of the toes and swelling. Hemoglobin 6.9 this morning and is being transfused with 1 unit of PRBC Other laboratory data showed WBC trending down to 12.8 hemoglobin 6.9 and platelets 218 sodium 134 potassium 4.3 chloride 103 bicarb is 23.5 BUN 19 and creatinine 1.0 and blood sugar 96 and calcium 8.1. Patient is on anticoagulation with Xarelto and also antibiotics cefazolin. Pain is controlled. 08/28/2023 Patient is seen and evaluated in follow-up today with multiple medical consultations following including vascular surgery and oncology. Patient cont inues to have a white count although is trending down and will follow-up with repeat labs. Patient is status post biopsy of the liver which is pending. Patient continues to report significant pain in the left lower extremity with inability to ambulate and was evaluated by vascular surgery with no plans of revascularization and also discussed with the patient about possible amputation for palliative pain relief as there are no plans or availabilities for further surgical intervention on that left lower extremity. Anticoagulation resumed. Patient remains on cefazolin with concerns of possible cellulitis of the lower extremities. Recommend repeat labs in the a.m. and continued PT/OT therapy 08/29/2023 Patient is seen in follow-up this morning with vascular and oncology following. Patient continues to report significant 10/10 pain of the left lower extremity and repeat CT angiogram being ordered. Patient underwent biopsy of the liver although suggestive of metastatic disease, specimen was insufficient for diagnosis. Oncology discussing looking into CT chest to evaluate the lung no dules for possible biopsy and/or bronchoscopy. Patient is afebrile, white count remains slightly elevated, no reports of chest pain or shortness of breath and patient is on room air. Patient continues on antibiotics with concerns of lower extremity cellulitis as well. Encouraged to increase activity as tolerated although patient reports unable to stand due to the pain on the left leg. Recommend PT/OT therapy daily. 08/30/2023 Patient is seen and evaluated today with vascular surgery following and patient underwent CT angio runoff with plans for vascular intervention on Monday as the graft on the left is down and patient reports continued significant left leg pain and inability to ambulate or place any weight on it due to the pain. Multiple medications including Dilaudid, [place], gabapentin have been added with minimal pain relief. Patient also had CT chest with multiple lung nodules noted and oncology following recommending pulmonary consultation for possible bronchoscopy with biopsy for confirmation of diagnosis. Patient maintained on Xarelto and will be placed on hold for surgical intervention for Monday. Patient is afebrile with no reported chest pain or shortness of breath. Patient not eating very much she reports does not have much of an appetite. Patient is getting anxious about overall treatment plan moving forward. Overall prognosis is extremely poor and guarded. Patient remains full code 08/31/2023 Patient is seen in follow-up this morning continues to report severe left lower extremity leg pain with vascular surgery following plans of revascularization an d evaluation of the graft on 09/01/[address] Almanza. Patient will be n.p.o. at midnight. Patient was evaluated by pulmonary recommending revascularization prior to bronchoscopy and/or biopsy of the lung nodules. Patient is currently sitting up in the bed on room air and denies any chest pain or shortness of breath. Patient reports is eating and tolerating with no reported nausea or vomiting. Medications reviewed. Review of systems: Constitutional: No reports of fatigue, fever, or chills Cardiovascular: No reports of chest pain or palpitations Respiratory: No reports of shortness of breath or cough GI: No reports of nausea, vomiting, or diarrhea, no reports abdominal pain, reports eating a little better : No reports of dysuria or retention Neurovascular: reports of generalized weakness, reports continued left lower extremity pain 10/10 All medications have been reviewed PHYSICAL EXAMINATION: Patient is sitting up in the bed , elderly appearing, thin built, well-develope d, awake alert and oriented.. HEENT: Normocephalic. Neck is supple. Pupils reactive. Nostrils clear. Oral cavity is moist. Neck reveals no JVD, carotid bruits, or thyromegaly. CHEST EXAMINATION: Trachea is central. Symmetrical expansion. Bibasilar diminished sounds. No wheezing. Nonlabored breathing.. CARDIAC: Normal S1, S2 with no gallops. No murmurs ABDOMEN: Soft. Tender on palpation, bowel sounds normal. Large firm liver noted on the right. No abdominal bruits. Extremities: Bilateral lower extremity swelling with skin dislocation/mottling of the left lower extremity. cyanosis noted of the toes with some swelling and is severe pain 10/10 on light palpation Neurologically awake, alert, oriented x3. Patient is able to move all extremities.. No focal deficits noted. diffusely weak Skin: No rash or skin lesions. Cyanosis noted on lower extremities as well as upper extremities, more so on the right hand Psychiatric: Cooperative. Non-suicidal, anxious. Musculoskeletal: No joint swelling or deformity. Normal range of motion. Assessment: Bilateral lower extremity pain, swelling with recent history of femorofemoral bypass and left common femoral thromboendarterectomy with graft malfunction, scheduled for revascularization on 09/01/2023 Possible bilateral lower extremity cellulitis, present on admission Acute kidney injury likely prerenal, trending down Leukocytosis with WBC 18.8, trending down History of DVT/PE and on anticoagulation with Xarelto at home, anticoagulation being placed on hold for vascular intervention on Monday Anemia, likely of chronic disease Hyponatremia secondary to poor oral intake Mild hyperkalemia 5.2 on admission likely due to SIXTO, improved Large liver mass with metastatic lesions to lung.. Patient is scheduled for outpatient PET scan. Status post liver biopsy 08/25/2023, likely metastatic disease although specimen was insufficient for diagnosis Abdominal aortic aneurysm stable from recent study Currently everyday smoker Moderate protein calorie malnutrition with a BMI of 23.4 GI prophylaxis DVT prophylaxis on Xarelto Full code Plan: Patient is continued on antibiotics in the form of cefazolin for possible underlying cellulitis. Patient WBCs elevated although trending down and will follow-up with repeat labs. Vascular surgery evaluated the patient and patient also underwent CT of the lower extremity as well as chest and apparently the graft is down and vascular surgery is holding anticoagulation with plans of revascularization on 09/01/2023 Oncology following status post biopsy and there was noted necrotic tissue and likely metastatic disease although specimen was insufficient for diagnosis. Oncology is aware and patient underwent CT chest for evaluation with multiple lung nodules and has consulted pulmonary for further evaluation and possible bronchoscopy with biopsy for diagnosis. Pulmonary has evaluated the patient recommending waiting bronchoscopy with biopsy until left lower extremity revascularization is done continue with pain management. Patient continues to report severe pain with Dilaudid and [place], gabapentin. Patient reports her pain is about the same since admission Recommend PT/OT therapy evaluation daily as patient is significantly weak and has not been up and walking. Patient reports unable to place any weight on the left lower extremity due to severe pain Prognosis is extremely poor guarded with multiple medical problems and comorbid conditions. Patient currently remains a full code and would like to receive treatment if there are options available. N.p.o. at midnight and will await vascular surgery report The impression and plan of care has been dictated by Amara Marrero, Nurse Practitioner as directed. Dr. Lia MD I have performed a history and examination and MDM of this patient, discussed the same with the dictator, and agree with the dictator's assessment and plan as written ,documented as a scribe. Based on total visit time, I have performed more than 50% of the visit. In the form of cefazolin with concerns of cellul itis of the lower extremities. Left lower extremity pain Objective - Vital Signs Vital signs: Vital Signs Temp 98.6 F 09/01/23 02:00 Pulse 84 09/01/23 02:00 Resp 16 09/01/23 02:00 BP 161/59 08/31/23 20:00 Pulse Ox 81 L 09/01/23 02:00 FiO2 21 08/27/23 20:23 Intake & Output 08/31/23 08/31/23 09/01/23 06:59 18:59 06:59 Intake Total 640 1180 0 Output Total 500 600 Balance 140 580 0 Intake: Oral 100 1180 0 Other 540 Output: Urine 500 600 Straight 600 Other: Voiding Method Indwelling Catheter Indwelling Catheter Indwelling Catheter - Labs CBC & Chem 7: 08/31/23 06:51 08/31/23 06:51 Labs: Abnormal Lab Results - Last 24 Hours (Table) 08/31/23 08/31/23 Range/Units 06:51 06:51 WBC 14.21 H (4.50-10.00) X 10*3/uL RBC 2.78 L (4.10-5.20) X 10*6/uL Hgb 8.0 L (12.0-15.0) g/dL Hct 25.9 L (37.2-46.3) % MCHC 30.9 L (32.0-37.0) g/dL RDW 19.2 H (11.5-14.5) % Immature Gran # 0.30 H (0.00-0.04) X 10*3/uL Neutrophils # 12.54 H (1.80-7.70) X 10*3/uL Lymphocytes # 0.63 L (0.90-5.00) X 10*3/uL Eosinophils # 0.03 L (0.04-0.35) X 10*3/uL Sodium 134 L (135-145) mmol/L BUN/Creatinine Ratio 24.86 H (12.00-20.00) Ratio Calcium 8.0 L (8.7-10.3) mg/dL
[2023-09-01 05:12] LABS: Anisocytosis Slight; HCT 27.2 % (34.0-46.0); HGB 8.3 gm/dL (11.4-16.0); Hypochromasia Marked; MCH 29.6 pg (25.0-35.0); MCHC 30.4 g/dL (31.0-37.0); MCV 97.2 fL (80.0-100.0); Macrocytosis Slight; Platelet Count 193 k/uL (150-450); RDW 18.3 % (11.5-15.5); WBC 16.6 k/uL (3.8-10.6)
[2023-09-01 05:24] LABS: African American GFR (CKD) >90 (>60 ml/min/1.73 sqM); Anion Gap 3 mmol/L; Blood Urea Nitrogen 22 mg/dL (7-17); Calcium 7.7 mg/dL (8.4-10.2); Carbon Dioxide 22 mmol/L (22-30); Chloride 106 mmol/L (98-107); Glucose 88 mg/dL (74-99); Magnesium 1.9 mg/dL (1.6-2.3); Non-African American GFR(CKD) >90 (>60 ml/min/1.73 sqM); Potassium 4.5 mmol/L (3.5-5.1); Sodium 131 mmol/L (137-145)
[2023-09-01] MEDS: IV FLUID CONTINUATION 200 ML IV ONE (09:53)
[2023-09-01] MEDS: IV FLUID CONTINUATION 1,000 ML IV ONE (10:30)
[2023-09-01] MEDS: MIDAZOLAM 2 MG/2 ML VIAL IVP ONE (10:45)
[2023-09-01] MEDS ORDERED: VASOPRESSIN 20 UNIT/ML 1 ML VIAL ONE (11:46)
[2023-09-01] MEDS ORDERED: PHENYLEPHRINE-0.9% NACL SYG 1,000 MCG/10 ML SYRINGE ONE (11:46)
[2023-09-01] MEDS ORDERED: HEPARIN SODIUM,PORCINE 5,000 UNIT/ML 1 ML VIAL ONE (11:46)
[2023-09-01] MEDS ORDERED: fentaNYL (PF) 50 MCG/ML 2 ML AMP ONE (11:46)
[2023-09-01] MEDS ORDERED: PROPOFOL 10 MG/ML 20 ML VIAL IV ONE (11:46)
[2023-09-01] MEDS ORDERED: SUCCINYLCHOLINE CHLORIDE 200 MG/10 ML VIAL IV ONE (11:46)
[2023-09-01] MEDS ORDERED: HYDROmorphone (PF) 1 MG/ML ONE (11:46)
[2023-09-01] MEDS ORDERED: LIDOCAINE 1% INJ 10MG/ML (20 ML MDV) ONE (11:46)
[2023-09-01] MEDS ORDERED: PROTAMINE SULFATE 10 MG/ML 5 ML VIAL ONE (11:46)
[2023-09-01] MEDS ORDERED: PHENYLEPHRINE 10 MG/ML VIAL ONE (11:46)
[2023-09-01] MEDS ORDERED: KETAMINE HCL IN 0.9 % NACL 50 MG/5 ML SYRINGE ONE (11:46)
--- NOTE | 2023-09-01 12:25 | P.PN ---
Subjective Progress Note Date: 09/01/23 This is a 73-year-old female patient with a known history of pulmonary embolism, DVT of the left leg, uterine cancer with previous hysterectomy, chronic obstructive pulmonary disease with chronic and ongoing tobacco dependence. She had presented here to the emergency room back on August 22, 2023 with c omplaints of left leg pain. She has had chronic pain and had previously had surgery 2 weeks prior to her arrival here. She also was known to have suspected liver cancer with metastasis and was waiting on an outpatient PET scan. CT scan of the abdomen did reveal a post femoral-femoral bypass changes with fluid collection around the graft. There is a large hepatic mass with metastatic disease throughout the lungs. Similar infrarenal abdominal aortic aneurysm from previous scan in December 2022. She did have a liver biopsy here on August 25, 2023 that revealed necrotic cellular material suggestive of necrotic neoplasm but insufficient for diagnosis due to lack of viable tissue. We were consulted today for possible lung biopsy. 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 Her Xarelto is on hold and they are planning for axillofemoral bypass grafting on 09/01/2023. She is seen today in consultation on the regular medical floor. She is currently sitting up in bed. She is having quite a bit of musculoskeletal pain. She is also having quite a bit of left lower extremity pain. She is maintaining O2 saturations in the 90s on room air. She is afebrile. Hemodynamically stable. She denies any worsening shortness of breath, cough or congestion. No hemoptysis. The patient is seen today August 31, 2023 in follow-up on the regular medical floor. She is currently sitting up in bed having breakfast. Awake and alert in no acute distress. Maintaining O2 saturations in the 90s on room air. Ultrasound of the chest revealed small bilateral pleural effusions with 2.8 cm fluid on the right and 1.9 cm on the left. Not marked for thoracentesis. She is status post 2 units of packed red blood cells this admission. Current hemoglobin 8.0. Platelets 227. White count 14.2. Sodium 134. Potassium 4.0. Bicarb 24. BUN 17. Creatinine 0.7. Glucose 80. She remains on cefazolin. Normal saline at 50 MLS per hour. The patient is seen today September 01, 2023 in follow-up on the regular medical floor. She is currently resting in bed. Awake and alert in no acute distress. Maintaining O2 saturations in the mid 90s on room air. She is afebrile. Hemodynamically stable. Planning for an axillobifemoral bypass today with vascular surgery. She is status post 2 units of packed red blood cells this admission. Current hemoglobin 8.3. Platelets 193. White count 16.6. Sodium 131. Potassium 4.5. Bicarb 22. BUN 22. Creatinine 0.64. Glucose 88. Remains on cefazolin. Continued on bronchodilators. Objective - Vital Signs Vital signs: Vital Signs Temp 98.3 F 09/01/23 09:51 Pulse 104 H 09/01/23 11:38 Resp 12 09/01/23 11:38 BP 111/56 09/01/23 11:38 Pulse Ox 98 09/01/23 11:38 FiO2 21 08/27/23 20:23 Intake & Output 08/31/23 09/01/23 09/01/23 18:59 06:59 18:59 Intake Total 1180 0 100 Output Total 600 300 Balance 580 -300 100 Weight 59.874 kg Intake: IV 100 Oral 1180 0 Output: Urine 600 300 Straight 600 Other: Voiding Method Indwelling Catheter Indwelling Catheter # Bowel Movements 1 - Exam GENERAL EXAM: Alert, frail 73-year-old female, fairly comfortable in no apparent distress. HEAD: Normocephalic. EYES: Normal reaction of pupils, equal size. NOSE: Clear with pink turbinates. THROAT: No erythema or exudates. NECK: No masses, no JVD. CHEST: No chest wall deformity. LUNGS: Equal air entry with faint crackles in the posterior bases. CVS: S1 and S2 normal with no audible murmur, regular rhythm. ABDOMEN: Distended, normal bowel sounds, no guarding or rigidity. SPINE: No scoliosis or deformity SKIN: Multiple areas of ecchymosis, skin tear on coccyx CENTRAL NERVOUS SYSTEM: No focal deficits, tone is normal in all 4 extremities. EXTREMITIES: Bilateral lower extremity edema left greater than right with multiple areas of ecchymosis and discoloration more so on the left. Dressing to the left lower extremity dry and intact - Labs CBC & Chem 7: 09/01/23 04:46 09/01/23 04:41 Labs: Abnormal Lab Results - Last 24 Hours (Table) 09/01/23 09/01/23 Range/Units 04:41 04:46 WBC 16.6 H (3.8-10.6) k/uL RBC 2.80 L (3.80-5.40) m/uL Hgb 8.3 L (11.4-16.0) gm/dL Hct 27.2 L (34.0-46.0) % MCHC 30.4 L (31.0-37.0) g/dL RDW 18.3 H (11.5-15.5) % Sodium 131 L (137-145) mmol/L BUN 22 H (7-17) mg/dL Calcium 7.7 L (8.4-10.2) mg/dL Assessment and Plan Assessment: Left leg pain, swelling and discoloration secondary to occlusion of the left superficial femoral artery extending from its origin to the popliteal artery. Reconstitution with poor visualization of the anterior posterior tibial art eries. Plan is for a left axillobifemoral bypass grafting today September 01, 2023 Liver mass with biopsy on 08/25/2023 revealing fragments of necrotic cellular material suggestive of necrotic neoplasm, insufficient for diagnosis due to lack of viable tissue Right apical masslike density. Scattered pulmonary nodules mid and lower lung beatty. Patchy basilar infiltrates. Small right effusion. Suspect metastatic disease Recent surgery on 08/04/2023 with left common femoral thromboendarterectomy for occlusive disease. Was on Xarelto History of DVT/PE History of abdominal aortic aneurysm Chronic and ongoing tobacco dependence Anorexia/cachexia syndrome with a BMI of 23.4 kg/m Plan: The patient was seen and evaluated Labs and medications reviewed The patient is scheduled for vascular surgery today May consider bronchoscopy with biopsies once recovered from surgery Prognosis is guarded We will continue to follow I have personally seen and examined the patient, performed the documentation and the assessment and plan as written. Number of minutes spent on the visit: 10.
[2023-09-01] MEDS: ceFAZolin 1,000 MG in SODIUM CHLORIDE 0.9% 1,000 ML IRRIGATION ONE (12:28)
[2023-09-01] MEDS: SODIUM CHLORIDE 0.9% IV ONE (12:29)
[2023-09-01] MEDS: HEPARIN SODIUM PORCINE IV ONE (12:29)
[2023-09-01] MEDS: THROMBIN (BOVINE) 5,000 UNIT VIAL TOPICAL ONE (13:09)
--- NOTE | 2023-09-01 13:48 | P.ANPRN ---
Procedure Note - Anesthesia - Invasive Line Right Central Line Time Out Performed: Yes (1044) Date of Procedure: 09/01/23 Time of Procedure: 10:45 Location of Patient: PreOp Preparation: Sterile Prep, Sterile Dressing Central Line Location: Internal Jugular (double lumen Right IJ) Ultrasound Used: Yes Purpose - Visualization and Identification of Vasculature: Yes Needle Guage: 18g angio Image Stored and Saved: Yes Narrative: Invasive line placement per sterile protocol utilized. Anesthesia note Procedure: Right internal jugular central venous catheter insertion: Double- lumen catheter Sterile protocol followed. Right neck prepped. Ultrasound used. Lidocaine 1% used. Using ultrasound local anesthetic was instilled site over right Internal Jugular vein. Angiocath was used to gain access via ultrasound. Once free flow non-pulsatile blood flow was confirmed, 12 inch extension tubing was then placed on Angiocath. Once central venous pressure was confirmed, J-wire was then placed through Angiocath. Angiocath was then withdrawn. Local was instilled at J-wire site. Small skin josi was then made with provided sterile scalpel. Double-lumen catheter was then inserted over the wire while maintaining control of wire at all times. Uneventful insertion with dilation. Free flow nonpulsatile blood flow through catheter hooked up to IV tubing. Secured with suture. Dressings applied. Drapes Removed. Attempts x1.
--- NOTE | 2023-09-01 13:49 | P.ANPRN ---
Procedure Note - Anesthesia - Invasive Line Right Arterial Line Time Out Performed: Yes (1044) Date of Procedure: 09/01/23 Time of Procedure: 11:10 Location of Patient: PreOp Preparation: Sterile Prep Arterial Line Location: Radial (Right) Ultrasound Used: Yes Purpose - Visualization and Identification of Vasculature: Yes Needle Guage: 20-gauge Image Stored and Saved: Yes Narrative: Invasive line placement per sterile protocol utilized.
--- NOTE | 2023-09-01 14:19 | P.OP ---
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 Status post failed femoral-femoral bypass. Postoperative Diagnosis: Same. Procedure(s) Performed: Left axillary to femoral artery bypass utilizing 6 mm PTFE. Anesthesia: JOVANA Surgeon: Ji Portillo Estimated Blood Loss (ml): 25 Pathology: none sent Condition: stable Disposition: no change Indications for Procedure: Patient is a 73-year-old female with a longstanding history of severe vascular disease who is status post femoral-femoral bypass graft. This graft thrombosed and the patient developed ischemic symptoms or left lower extremity. She is a very poor overall surgical candidate and patient is now offered extra-anatomic bypass. Description of Procedure: Patient was brought the operating room and placed in the supine position administered general endotracheal anesthesia administered by the department anesthesiology. Benjamin catheter remained in place. Patient's antibiotic regimen was maintained. Patient was sterilely prepped and draped in the usual manner. Skin incision was made in the left axillary area and carried down through subcutaneous tissues. Hemostasis was achieved using electrocautery. Pectoralis major muscle fibers were dissected in the direction of its fibers exposing the pectoralis minor muscle. This was mobilized medially exposing the axillary artery and vein. The artery was dissected free of the vein both proximally and distally and encircled with Vesseloops. The wound was then packed with antibiotic soaked gauze. Attention was turned to the left inguinal area. The previous surgical incision was sharply opened and carried down through the subcutaneous tissues. Hemostasis was achieved using electrocautery. Seroma was encountered and drained completely. There is no evidence of infectious process. The femoral- femoral bypass graft was identified and transected. It was ligated with silk suture. The femoral artery was identified and dissected free of investing tissues. Vesseloops were placed around the profundus femoris, origin of the superficial femoral and common femoral arteries. A ringed 6 mm PTFE graft was selected and tunneled anterior to the fascia between the axillary incision and the inguinal incision. The patient was systemically heparinized. After adequate circulation time the Vesseloops surrounding the axillary artery were drawn closed and a longitudinal arteriotomy was made and extended with Amezquita Metzenbaums scissors. Good inflow was identified. The graft was cut to the appropriate length and end to side anastomosis between the graft and the artery was performed with 5-0 Prolene suture. Just prior to completion of the anastomotic line the artery was flushed and no thrombus was retrieved. The anastomotic line was completed. The graft w as occluded and flow restored through the axillary artery into the proximal portion of the graft. Hemostasis was adequate. Topical thrombin Gelfoam were placed about the anastomotic line. The wound was packed with antibiotic soaked gauze. Attention was turned to the left inguinal well wound. The Vesseloops surrounding the common femoral, profundus femoris and superficial femoral arteries were drawn closed. The previous vein graft was removed from its attachments to the artery. Thrombus was encountered. This was removed. Good backbleeding from the profundus was evident and the artery was flushed with heparinized saline solution. The graft was cut to the appropriate length and spatulated. End-to-side anastomosis between the graft and the artery was completed with 5-0 Prolene suture. Just prior to completion of the anastomotic line the graft was flushed and no thrombus was retrieved. Excellent pulsatile flow was identified. Backbleeding through the profundus was brisk. The anastomotic line was then completed and flow restored through the graft into the femoral system. 1 point of bleeding along the anastomotic line was identified and this was controlled with Prolene suture. Hemostasis was judged to be adequate. Both wounds were then irrigated with antibiotic-containing solution. Hemostasis was judged to be adequate. Topical thrombin and Gelfoam were placed at both wounds. Deep tissues were closed with 3-0 Vicryl dermis was closed with 4 Monocryl placed in running intradermal fashion. Appropriate dressings were applied. Patient tolerated the procedure well and was transferred to the recovery area satisfactory and stable condition after extubation. At the time of transfer the patient's ischemic discoloration of the left foot was resolving and patient d emonstrated excellent capillary refill.
[2023-09-01 18:31] LABS: HCT 24.6 % (37.2-46.3); HGB 7.6 g/dL (12.0-15.0); MCH 28.7 pg (27.0-32.0); MCHC 30.9 g/dL (32.0-37.0); MCV 92.8 FL (80.0-97.0); NRBC Per 100 WBC 0.02 X 10*3/uL (0.00-0.01); Platelet Count 188 X 10*3/uL (140-440); RBC 2.65 X 10*6/uL (4.10-5.20); RDW 19.9 % (11.5-14.5); WBC 20.07 X 10*3/uL (4.50-10.00)
--- NOTE | 2023-09-01 21:41 | P.PN ---
Subjective Progress Note Date: 09/01/23 Patient is a 73-year-old female with a past medical history of DVT/PE on anticoagulation, peripheral vascular disease with left leg pain status post femoral to femoral bypass and left common femoral thromboendarterectomy on 08/04/2023, history of cholecystectomy on 07/11/2023 presents to ER with complaints of left lower extremity pain swelling and discoloration. Patient has been having chronic pain which has improved during the last 7 to 10 days. Patient does have history of liver mass and her physician is planning to get PET scan as an outpatient.. Patient has not seen oncology before. Otherwise patient denied any complaints of fever or chills. No nausea vomiting. No diarrhea. No cough or sputum production. No chest pain. EKG showed sinus rhythm. CT of the abdomen pelvis showed post femoral-femoral bypass changes with fluid collection around the graft. 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 Similar infrarenal abdominal aortic aneurysm back to at least 01/04/2023. Measuring 3.7 x 4.4 cm. Laboratory data showed WBC 18.8 hemoglobin 7.1, MCV 88.7 and platelets 473 INR 1.6, sodium 130 potassium 5.2 chloride 100 bicarb is 19 BUN 68, creatinine 2.03 and blood sugar 100 Total bili 1.9 AST 89 ALT 43 and alk phos 428 and albumin 2.5 and lipase level 977 08/24/2023 Patient is seen and evaluated in follow-up today being followed by vascular surgery along with oncology and interventional radiology was consulted for possible biopsy. Patient continued on empiric antibiotics with concerns of possible cellulitis of the lower extremities. Patient evaluated by vascular surgery as patient is recent femoropopliteal bypass and left common femoral thromboendarterectomy with no plans of revascularization interventions at this time. Patient okay to resume anticoagulation once cleared by oncology. Will hold on anticoagulation for now as hemoglobin is low and post 1 unit of PRBCs hemoglobin is 7.7 today. Discussing possible biopsy of the liver and will hold on anticoagulation including holding subcutaneous heparin for now. Interventional radiology consulted and pending. Patient with significant weakness would recommend being evaluated by PT/OT therapy. Overall treatment plan discussed with patient and would like to receive treatment if available. Will discuss further with oncology once biopsy is performed. 08/25/2023 Patient is seen in follow-up today currently n.p.o. scheduled to undergo ultrasound for possible liver biopsy with interventional radiology. Patient maintained on antibiotics as severe and patient is maintained on Dilaudid. Will also add Vernon for breakthrough pain as patient reports 10/10 on the pain scale. Vascular surgery evaluated the patient with no plans of revascularization or surgical intervention on that left lower extremity. No contraindication to resume anticoagulation and Xarelto is being resumed. Patient is afebrile with no reports of chest pain or shortness of breath. Patient is currently wearing 2 L although does not normally wear oxygen outpatient. Encouraged oral intake and increased activity as tolerated. Patient to undergo biopsy and awaiting pathology as there is concerns of metastasis from the lungs as well. Overall prognosis is poor and guarded left at this time. 08/26/2023 Patient is resting in the bed. Awake alert and oriented x 3. No complaints of chest pain or shortness of breath. Patient still having left lower extremity discoloration of the toes. Swelling is about the same. Right lower extremity swelling did improve. Patient is s/p liver biopsy. Continued on anticoagulation with Xarelto. Patient is on antibiotics, cefazolin. Laboratory showed WBC 13.4 hemoglobin 7.7 and platelets 217 Sodium 130 potassium 3.5 chloride 101 bicarb is 24 BUN 25 and creatinine 0.93 and blood sugar 103 and calcium 7.8 and magnesium 2.2 08/27/2023 Patient is resting in the bed. Awake alert and oriented x 3. No nausea vomiting abdominal pain or diarrhea. Currently on room air. Still having left lower extremity discoloration of the toes and swelling. Hemoglobin 6.9 this morning and is being transfused with 1 unit of PRBC Other laboratory data showed WBC trending down to 12.8 hemoglobin 6.9 and platelets 218 sodium 134 potassium 4.3 chloride 103 bicarb is 23.5 BUN 19 and creatinine 1.0 and blood sugar 96 and calcium 8.1. Patient is on anticoagulation with Xarelto and also antibiotics cefazolin. Pain is controlled. 08/28/2023 Patient is seen and evaluated in follow-up today with multiple medical consultations following including vascular surgery and oncology. Patient cont inues to have a white count although is trending down and will follow-up with repeat labs. Patient is status post biopsy of the liver which is pending. Patient continues to report significant pain in the left lower extremity with inability to ambulate and was evaluated by vascular surgery with no plans of revascularization and also discussed with the patient about possible amputation for palliative pain relief as there are no plans or availabilities for further surgical intervention on that left lower extremity. Anticoagulation resumed. Patient remains on cefazolin with concerns of possible cellulitis of the lower extremities. Recommend repeat labs in the a.m. and continued PT/OT therapy 08/29/2023 Patient is seen in follow-up this morning with vascular and oncology following. Patient continues to report significant 10/10 pain of the left lower extremity and repeat CT angiogram being ordered. Patient underwent biopsy of the liver although suggestive of metastatic disease, specimen was insufficient for diagnosis. Oncology discussing looking into CT chest to evaluate the lung no dules for possible biopsy and/or bronchoscopy. Patient is afebrile, white count remains slightly elevated, no reports of chest pain or shortness of breath and patient is on room air. Patient continues on antibiotics with concerns of lower extremity cellulitis as well. Encouraged to increase activity as tolerated although patient reports unable to stand due to the pain on the left leg. Recommend PT/OT therapy daily. 08/30/2023 Patient is seen and evaluated today with vascular surgery following and patient underwent CT angio runoff with plans for vascular intervention on Monday as the graft on the left is down and patient reports continued significant left leg pain and inability to ambulate or place any weight on it due to the pain. Multiple medications including Dilaudid, Vernon, gabapentin have been added with minimal pain relief. Patient also had CT chest with multiple lung nodules noted and oncology following recommending pulmonary consultation for possible bronchoscopy with biopsy for confirmation of diagnosis. Patient maintained on Xarelto and will be placed on hold for surgical intervention for Monday. Patient is afebrile with no reported chest pain or shortness of breath. Patient not eating very much she reports does not have much of an appetite. Patient is getting anxious about overall treatment plan moving forward. Overall prognosis is extremely poor and guarded. Patient remains full code 08/31/2023 Patient is seen in follow-up this morning continues to report severe left lower extremity leg pain with vascular surgery following plans of revascularization an d evaluation of the graft on 09/01/[address] Almanza. Patient will be n.p.o. at midnight. Patient was evaluated by pulmonary recommending revascularization prior to bronchoscopy and/or biopsy of the lung nodules. Patient is currently sitting up in the bed on room air and denies any chest pain or shortness of breath. Patient reports is eating and tolerating with no reported nausea or vomiting. 09/01/2023 Patient is seen and evaluated in follow-up this morning currently n.p.o. as patient is scheduled to undergo revascularization intervention with Dr. Almanza this morning. Being taken to the OR currently. Vital signs are stable and we will follow-up and await surgical report. Medications reviewed. Review of systems: Constitutional: No reports of fatigue, fever, or chills Cardiovascular: No reports of chest pain or palpitations Respiratory: No reports of shortness of breath or cough GI: No reports of nausea, vomiting, or diarrhea, no reports abdominal pain, reports eating a little better : No reports of dysuria or retention Neurovascular: reports of generalized weakness, reports continued left lower extremity pain 10/10 All medications have been reviewed PHYSICAL EXAMINATION: Patient is lying in the bed , elderly appearing, thin built, well-developed, awake alert and oriented.. HEENT: Normocephalic. Neck is supple. Pupils reactive. Nostrils clear. Oral cavity is moist. Neck reveals no JVD, carotid bruits, or thyromegaly. CHEST EXAMINATION: Trachea is central. Symmetrical expansion. Bibasilar diminished sounds. No wheezing. Nonlabored breathing.. CARDIAC: Normal S1, S2 with no gallops. No murmurs ABDOMEN: Soft. Tender on palpation, bowel sounds normal. Large firm liver noted on the right. No abdominal bruits. Extremities: Bilateral lower extremity swelling with skin dislocation/mottling of the left lower extremity. cyanosis noted of the toes with some swelling and is severe pain 10/10 on light palpation Neurologically awake, alert, oriented x3. Patient is able to move all extremities.. No focal deficits noted. diffusely weak Skin: No rash or skin lesions. Cyanosis noted on lower extremities as well as upper extremities, more so on the right hand Psychiatric: Cooperative. Non-suicidal, anxious. Musculoskeletal: No joint swelling or deformity. Normal range of motion. Assessment: Bilateral lower extremity pain, swelling with recent history of femorofemoral bypass and left common femoral thromboendarterectomy with graft malfunction, scheduled for revascularization today 09/01/2023 Possible bilateral lower extremity cellulitis, present on admission Acute kidney injury likely prerenal, trending down Leukocytosis with WBC 18.8, likely reactive as there is no obvious source of infection History of DVT/PE and on anticoagulation with Xarelto at home, anticoagulation being placed on hold for vascular intervention today Anemia, likely of chronic disease Hyponatremia secondary to poor oral intake Mild hyperkalemia 5.2 on admission likely due to SIXTO, improved Large liver mass with metastatic lesions to lung.. Patient is scheduled for outpatient PET scan. Status post liver biopsy 08/25/2023, likely metastatic disease although specimen was insufficient for diagnosis Abdominal aortic aneurysm stable from recent study Currently everyday smoker Moderate protein calorie malnutrition with a BMI of 23.4 GI prophylaxis DVT prophylaxis on Xarelto Full code Plan: Patient is continued on antibiotics in the form of cefazolin for possible underlying cellulitis. Patient WBCs elevated although trending down and will follow-up with repeat labs. Vascular surgery evaluated the patient and patient also underwent CT of the l ower extremity as well as chest and apparently the graft is down and vascular surgery is holding anticoagulation with plans of revascularization today, 09/01/2023. N.p.o. currently and will await report. Patient may be transferred to ICU or 3 S. post-intervention Oncology following status post biopsy and there was noted necrotic tissue and likely metastatic disease although specimen was insufficient for diagnosis. Oncology is aware and patient underwent CT chest for evaluation with multiple lung nodules and has consulted pulmonary for further evaluation and possible bronchoscopy with biopsy for diagnosis. Pulmonary has evaluated the patient recommending waiting bronchoscopy with biopsy until left lower extremity revascularization is done continue with pain management. Patient continues to report severe pain with Dilaudid and Vernon, gabapentin. Patient reports her pain is about the same since admission Recommend PT/OT therapy evaluation once cleared by vascular surgery. Patient has had prolonged hospitalization and is significantly weak and has not been up and walking. Patient will most likely need rehab upon discharge as well. Will follow-up with case management and patient regarding treatment plans moving forward and if patient requires rehab for continued PT/OT therapy. Prognosis is extremely poor guarded with multiple medical problems and comorbid conditions. Patient currently remains a full code and would like to receive treatment if there are options available. The impression and plan of care has been dictated by Nurse Blake Lingitioner as directed. Dr. Lia MD I have performed a history and examination and MDM of this patient, discussed the same with the dictator, and agree with the dictator's assessment and plan as written ,documented as a scribe. Based on total visit time, I have performed more than 50% of the visit. In the form of cefazolin with concerns of cellulitis of the lower extremities. Left lower extremity pain Objective - Vital Signs Vital signs: Vital Signs Temp 97.7 F 09/01/23 07:50 Pulse 95 09/01/23 08:31 Resp 15 09/01/23 07:50 BP 104/53 09/01/23 07:50 Pulse Ox 93 L 09/01/23 07:50 FiO2 21 08/27/23 20:23 Intake & Output 08/31/23 09/01/23 09/01/23 18:59 06:59 18:59 Intake Total 1180 0 Output Total 600 300 Balance 580 -300 Intake: Oral 1180 0 Output: Urine 600 300 Straight 600 Other: Voiding Method Indwelling Catheter Indwelling Catheter # Bowel Movements 1 - Labs CBC & Chem 7: 09/01/23 14:58 09/01/23 04:41 Labs: Abnormal Lab Results - Last 24 Hours (Table) 08/31/23 08/31/23 09/01/23 Range/Units 06:51 06:51 04:41 WBC 14.21 H (4.50-10.00) X 10*3/uL RBC 2.78 L (4.10-5.20) X 10*6/uL Hgb 8.0 L (12.0-15.0) g/dL Hct 25.9 L (37.2-46.3) % MCHC 30.9 L (32.0-37.0) g/dL RDW 19.2 H (11.5-14.5) % Immature Gran # 0.30 H (0.00-0.04) X 10*3/uL Neutrophils # 12.54 H (1.80-7.70) X 10*3/uL Lymphocytes # 0.63 L (0.90-5.00) X 10*3/uL Eosinophils # 0.03 L (0.04-0.35) X 10*3/uL Sodium 134 L 131 L (135-145) mmol/L BUN 22 H (7-17) mg/dL BUN/Creatinine Ratio 24.86 H (12.00-20.00) Ratio Calcium 8.0 L 7.7 L (8.7-10.3) mg/dL 09/01/23 Range/Units 04:46 WBC 16.6 H (4.50-10.00) X 10*3/uL RBC 2.80 L (4.10-5.20) X 10*6/uL Hgb 8.3 L (12.0-15.0) g/dL Hct 27.2 L (37.2-46.3) % MCHC 30.4 L (32.0-37.0) g/dL RDW 18.3 H (11.5-14.5) % Immature Gran # (0.00-0.04) X 10*3/uL Neutrophils # (1.80-7.70) X 10*3/uL Lymphocytes # (0.90-5.00) X 10*3/uL Eosinophils # (0.04-0.35) X 10*3/uL Sodium (135-145) mmol/L BUN (7-17) mg/dL BUN/Creatinine Ratio (12.00-20.00) Ratio Calcium (8.7-10.3) mg/dL
[2023-09-02 11:17] LABS: African American GFR (CKD) >90 (>60 ml/min/1.73 sqM); Anion Gap 9 mmol/L; Blood Urea Nitrogen 24 mg/dL (7-17); Calcium 7.5 mg/dL (8.4-10.2); Carbon Dioxide 18 mmol/L (22-30); Chloride 105 mmol/L (98-107); Glucose 71 mg/dL (74-99); Non-African American GFR(CKD) 82 (>60 ml/min/1.73 sqM); Sodium 132 mmol/L (137-145)
[2023-09-02 11:30] LABS: Magnesium 1.8 mg/dL (1.6-2.3); Potassium 3.9 mmol/L (3.5-5.1)
[2023-09-02 11:55] LABS: Anisocytosis Slight; Basophils # (A) 0.1 k/uL (0-0.2); Basophils % (A) 0 %; Eosinophils % (A) 0 %; HCT 29.9 % (34.0-46.0); HGB 9.1 gm/dL (11.4-16.0); Hypochromasia Marked; Lymphocytes # (A) 0.6 k/uL (1.0-4.8); Lymphocytes % (A) 3 %; MCH 29.5 pg (25.0-35.0); MCHC 30.5 g/dL (31.0-37.0); MCV 96.6 fL (80.0-100.0); Macrocytosis Slight; Mean Platelet Volume 10.3; Monocytes # (A) 0.5 k/uL (0-1.0); Monocytes % (A) 2 %; Neutrophils # (A) 21.6 k/uL (1.3-7.7); Neutrophils % (A) 94 %; Platelet Count 186 k/uL (150-450); Poikilocytosis Slight; RBC 3.09 m/uL (3.80-5.40); RDW 19.3 % (11.5-15.5); WBC 22.9 k/uL (3.8-10.6)
--- NOTE | 2023-09-02 14:07 | P.PN ---
Subjective Progress Note Date: 09/02/23 This is a 73-year-old female patient with a known history of pulmonary embolism, DVT of the left leg, uterine cancer with previous hysterectomy, chronic obstructive pulmonary disease with chronic and ongoing tobacco dependence. She had presented here to the emergency room back on August 22, 2023 with c omplaints of left leg pain. She has had chronic pain and had previously had surgery 2 weeks prior to her arrival here. She also was known to have suspected liver cancer with metastasis and was waiting on an outpatient PET scan. CT scan of the abdomen did reveal a post femoral-femoral bypass changes with fluid collection around the graft. There is a large hepatic mass with metastatic disease throughout the lungs. Similar infrarenal abdominal aortic aneurysm from previous scan in December 2022. She did have a liver biopsy here on August 25, 2023 that revealed necrotic cellular material suggestive of necrotic neoplasm but insufficient for diagnosis due to lack of viable tissue. We were consulted today for possible lung biopsy. 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 Her Xarelto is on hold and they are planning for axillofemoral bypass grafting on 09/01/2023. She is seen today in consultation on the regular medical floor. She is currently sitting up in bed. She is having quite a bit of musculoskeletal pain. She is also having quite a bit of left lower extremity pain. She is maintaining O2 saturations in the 90s on room air. She is afebrile. Hemodynamically stable. She denies any worsening shortness of breath, cough or congestion. No hemoptysis. The patient is seen today August 31, 2023 in follow-up on the regular medical floor. She is currently sitting up in bed having breakfast. Awake and alert in no acute distress. Maintaining O2 saturations in the 90s on room air. Ultrasound of the chest revealed small bilateral pleural effusions with 2.8 cm fluid on the right and 1.9 cm on the left. Not marked for thoracentesis. She is status post 2 units of packed red blood cells this admission. Current hemoglobin 8.0. Platelets 227. White count 14.2. Sodium 134. Potassium 4.0. Bicarb 24. BUN 17. Creatinine 0.7. Glucose 80. She remains on cefazolin. Normal saline at 50 MLS per hour. The patient is seen today September 01, 2023 in follow-up on the regular medical floor. She is currently resting in bed. Awake and alert in no acute distress. Maintaining O2 saturations in the mid 90s on room air. She is afebrile. Hemodynamically stable. Planning for an axillobifemoral bypass today with vascular surgery. She is status post 2 units of packed red blood cells this admission. Current hemoglobin 8.3. Platelets 193. White count 16.6. Sodium 131. Potassium 4.5. Bicarb 22. BUN 22. Creatinine 0.64. Glucose 88. Remains on cefazolin. Continued on bronchodilators. The patient is seen today September 02, 2023 in follow-up on the right on the selective care unit. She is awake and alert in no acute distress. She did undergo a left axillary to femoral bypass grafting yesterday. Her left lower extremity still quite discolored. Still having pain. Pulse is absent. She is status post 3 units of packed red blood cells this admission. Current hemoglobin 9.1. Platelets 186. White count 22.9. Sodium 132. Potassium 3.9. Bicarb 18. BUN 24. Creatinine 0.74. Glucose 71. She is currently maintaining good O2 saturations in the 90s on 4 L/min per nasal cannula. Afebrile. Hemodynamically stable. She is continued on cefazolin. Objective - Vital Signs Vital signs: Vital Signs Temp 97.7 F 09/02/23 04:00 Pulse 16 L 09/02/23 11:56 Resp 16 09/02/23 08:00 BP 136/71 09/02/23 11:56 Pulse Ox 99 09/02/23 04:00 FiO2 21 08/27/23 20:23 Intake & Output 09/01/23 09/02/23 09/02/23 18:59 06:59 18:59 Intake Total 1012 240 Output Total 525 350 Balance 487 -350 240 Weight 59.874 kg Intake: IV 702 Oral 240 Blood Product 310 Rc As-1 Unit 310 [id number] Output: Urine 500 350 Estimated Blood Loss 25 Other: Voiding Method Indwelling Catheter Indwelling Catheter Indwelling Catheter # Bowel Movements 1 - Exam GENERAL EXAM: Alert, frail 73-year-old female, on 4 L nasal cannula, fairly comfortable in no apparent distress. HEAD: Normocephalic. EYES: Normal reaction of pupils, equal size. NOSE: Clear with pink turbinates. THROAT: No erythema or exudates. NECK: No masses, no JVD. CHEST: No chest wall deformity. LUNGS: Equal air entry with faint crackles in the posterior bases. CVS: S1 and S2 normal with no audible murmur, regular rhythm. ABDOMEN: Distended, normal bowel sounds, no guarding or rigidity. SPINE: No scoliosis or deformity SKIN: Multiple areas of ecchymosis, skin tear on coccyx CENTRAL NERVOUS SYSTEM: No focal deficits, tone is normal in all 4 extremities. EXTREMITIES: Bilateral lower extremity edema left greater than right with multiple areas of ecchymosis and discoloration more so on the left. Dressing to the left lower extremity dry and intact - Labs CBC & Chem 7: 09/02/23 09:26 09/02/23 09:26 Labs: Abnormal Lab Results - Last 24 Hours (Table) 09/01/23 09/02/23 09/02/23 Range/Units 14:58 09:26 09:26 WBC 20.07 H 22.9 H (4.50-10.00) X 10*3/uL RBC 2.65 L 3.09 L (4.10-5.20) X 10*6/uL Hgb 7.6 L 9.1 L (12.0-15.0) g/dL Hct 24.6 L 29.9 L (37.2-46.3) % MCHC 30.9 L 30.5 L (32.0-37.0) g/dL RDW 19.9 H 19.3 H (11.5-14.5) % Neutrophils # 21.6 H (1.3-7.7) k/uL Lymphocytes # 0.6 L (1.0-4.8) k/uL NRBC/100 WBC Diff 0.02 H (0.00-0.01) X 10*3/uL Sodium 132 L (137-145) mmol/L Carbon Dioxide 18 L (22-30) mmol/L BUN 24 H (7-17) mg/dL Glucose 71 L (74-99) mg/dL Calcium 7.5 L (8.4-10.2) mg/dL Assessment and Plan Assessment: Left leg pain, swelling and discoloration secondary to occlusion of the left superficial femoral artery extending from its origin to the popliteal artery. Reconstitution with poor visualization of the anterior posterior tibial arteries. Status post left axillobifemoral bypass grafting September 01, 2023 Liver mass with biopsy on 08/25/2023 revealing fragments of necrotic cellular material suggestive of necrotic neoplasm, insufficient for diagnosis due to lack of viable tissue Right apical masslike density. Scattered pulmonary nodules mid and lower lung beatty. Patchy basilar infiltrates. Small right effusion. Suspect metastatic disease Recent surgery on 08/04/2023 with left common femoral thromboendarterectomy for occlusive disease. Was on Xarelto History of DVT/PE History of abdominal aortic aneurysm Chronic and ongoing tobacco dependence Anorexia/cachexia syndrome with a BMI of 23.4 kg/m Plan: The patient was seen and evaluated Labs and medications reviewed Remains on cefazolin Prognosis is guarded Titrate the FiO2 as tolerated We will continue to follow I have personally seen and examined the patient, performed the documentation and the assessment and plan as written. Number of minutes spent on the visit: 10.
--- NOTE | 2023-09-02 14:52 | P.PN ---
Subjective Progress Note Date: 09/02/23 Patient is a 73-year-old female with a past medical history of DVT/PE on anticoagulation, peripheral vascular disease with left leg pain status post femoral to femoral bypass and left common femoral thromboendarterectomy on 08/04/2023, history of cholecystectomy on 07/11/2023 presents to ER with complaints of left lower extremity pain swelling and discoloration. Patient has been having chronic pain which has improved during the last 7 to 10 days. Patient does have history of liver mass and her physician is planning to get PET scan as an outpatient.. Patient has not seen oncology before. Otherwise patient denied any complaints of fever or chills. No nausea vomiting. No diarrhea. No cough or sputum production. No chest pain. EKG showed sinus rhythm. CT of the abdomen pelvis showed post femoral-femoral bypass changes with fluid collection around the graft. 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 Similar infrarenal abdominal aortic aneurysm back to at least 01/04/2023. Measuring 3.7 x 4.4 cm. Laboratory data showed WBC 18.8 hemoglobin 7.1, MCV 88.7 and platelets 473 INR 1.6, sodium 130 potassium 5.2 chloride 100 bicarb is 19 BUN 68, creatinine 2.03 and blood sugar 100 Total bili 1.9 AST 89 ALT 43 and alk phos 428 and albumin 2.5 and lipase level 977 08/24/2023 Patient is seen and evaluated in follow-up today being followed by vascular surgery along with oncology and interventional radiology was consulted for possible biopsy. Patient continued on empiric antibiotics with concerns of possible cellulitis of the lower extremities. Patient evaluated by vascular surgery as patient is recent femoropopliteal bypass and left common femoral thromboendarterectomy with no plans of revascularization interventions at this time. Patient okay to resume anticoagulation once cleared by oncology. Will hold on anticoagulation for now as hemoglobin is low and post 1 unit of PRBCs hemoglobin is 7.7 today. Discussing possible biopsy of the liver and will hold on anticoagulation including holding subcutaneous heparin for now. Interventional radiology consulted and pending. Patient with significant weakness would recommend being evaluated by PT/OT therapy. Overall treatment plan discussed with patient and would like to receive treatment if available. W ill discuss further with oncology once biopsy is performed. 08/25/2023 Patient is seen in follow-up today currently n.p.o. scheduled to undergo ultrasound for possible liver biopsy with interventional radiology. Patient maintained on antibiotics as severe and patient is maintained on Dilaudid. Will also add Newton for breakthrough pain as patient reports 10/10 on the pain scale. Vascular surgery evaluated the patient with no plans of revascularization or surgical intervention on that left lower extremity. No contraindication to resume anticoagulation and Xarelto is being resumed. Patient is afebrile with no reports of chest pain or shortness of breath. Patient is currently wearing 2 L although does not normally wear oxygen outpatient. Encouraged oral intake and increased activity as tolerated. Patient to undergo biopsy and awaiting pathology as there is concerns of metastasis from the lungs as well. Overall prognosis is poor and guarded left at this time. 08/26/2023 Patient is resting in the bed. Awake alert and oriented x 3. No complaints of chest pain or shortness of breath. Patient still having left lower extremity discoloration of the toes. Swelling is about the same. Right lower extremity swelling did improve. Patient is s/p liver biopsy. Continued on anticoagulation with Xarelto. Patient is on antibiotics, cefazolin. Laboratory showed WBC 13.4 hemoglobin 7.7 and platelets 217 Sodium 130 potassium 3.5 chloride 101 bicarb is 24 BUN 25 and creatinine 0.93 and blood sugar 103 and calcium 7.8 and magnesium 2.2 08/27/2023 Patient is resting in the bed. Awake alert and oriented x 3. No nausea vomiting abdominal pain or diarrhea. Currently on room air. Still having left lower extremity discoloration of the toes and swelling. Hemoglobin 6.9 this morning and is being transfused with 1 unit of PRBC Other laboratory data showed WBC trending down to 12.8 hemoglobin 6.9 and platelets 218 sodium 134 potassium 4.3 chloride 103 bicarb is 23.5 BUN 19 and creatinine 1.0 and blood sugar 96 and calcium 8.1. Patient is on anticoagulation with Xarelto and also antibiotics cefazolin. Pain is controlled. 08/28/2023 Patient is seen and evaluated in follow-up today with multiple medical consultations following including vascular surgery and oncology. Patient continues to have a white count although is trending down and will follow-up with repeat labs. Patient is status post biopsy of the liver which is pending. Patient continues to report significant pain in the left lower extremity with inability to ambulate and was evaluated by vascular surgery with no plans of revascularization and also discussed with the patient about possible amputation for palliative pain relief as there are no plans or availabilities for further surgical intervention on that left lower extremity. Anticoagulation resumed. Patient remains on cefazolin with concerns of possible cellulitis of the lower extremities. Recommend repeat labs in the a.m. and continued PT/OT therapy 08/29/2023 Patient is seen in follow-up this morning with vascular and oncology following. Patient continues to report significant 10/10 pain of the left lower extremity and repeat CT angiogram being ordered. Patient underwent biopsy of the liver although suggestive of metastatic disease, specimen was insufficient for diagnosis. Oncology discussing looking into CT chest to evaluate the lung nodul es for possible biopsy and/or bronchoscopy. Patient is afebrile, white count remains slightly elevated, no reports of chest pain or shortness of breath and patient is on room air. Patient continues on antibiotics with concerns of lower extremity cellulitis as well. Encouraged to increase activity as tolerated although patient reports unable to stand due to the pain on the left leg. Recommend PT/OT therapy daily. 08/30/2023 Patient is seen and evaluated today with vascular surgery following and patient underwent CT angio runoff with plans for vascular intervention on Monday as the graft on the left is down and patient reports continued significant left leg pain and inability to ambulate or place any weight on it due to the pain. Multiple medications including Dilaudid, Newton, gabapentin have been added with minimal pain relief. Patient also had CT chest with multiple lung nodules noted and oncology following recommending pulmonary consultation for possible bronchoscopy with biopsy for confirmation of diagnosis. Patient maintained on Xarelto and will be placed on hold for surgical intervention for Monday. Patient is afebrile with no reported chest pain or shortness of breath. Patient not eating very much she reports does not have much of an appetite. Patient is getting anxious about overall treatment plan moving forward. Overall prognosis is extremely poor and guarded. Patient remains full code 08/31/2023 Patient is seen in follow-up this morning continues to report severe left lower extremity leg pain with vascular surgery following plans of revascularization and evaluation of the graft on 09/01/[address] Almanza. Patient will be n.p.o. at midnight. Patient was evaluated by pulmonary recommending revascularization prior to bronchoscopy and/or biopsy of the lung nodules. Patient is currently sitting up in the bed on room air and denies any chest pain or shortness of breath. Patient reports is eating and tolerating with no reported nausea or vomiting. 09/01/2023 Patient is seen and evaluated in follow-up this morning currently n.p.o. as patient is scheduled to undergo revascularization intervention with Dr. Almanza this morning. Being taken to the OR currently. Vital signs are stable and we will follow-up and await surgical report. 09/02/2023 Patient is seen in follow-up today on the stepdown unit. Patient underwent left axillary to femoral bypass yesterday secondary to a failed femoral to femoral bypass. Patient was seen in follow-up with vascular surgery today who per patient has discussed possible surgical amputation of the left leg. The left foot today is blackened no pulse noted. Additionally patient's abdomen remains distended. Pulmonary following and recommending bronchoscopy versus thoracentesis for diagnostic measures regarding the right upper lobe mass. Patient is off Xarelto at this time. Her white blood cell count is elevated at 22.9, hemoglobin 9.1., Sodium 132, renal function is stable BUN of 24, creatinine of 0.74. She remains on IV cefazolin. Medications reviewed. Review of systems: Constitutional: No reports of fatigue, fever, or chills Cardiovascular: No reports of chest pain or palpitations Respiratory: No reports of shortness of breath or cough GI: No reports of nausea, vomiting, or diarrhea, no reports abdominal pain, reports eating a little better : No reports of dysuria or retention Neurovascular: reports of generalized weakness, reports continued left lower extremity pain / All medications have been reviewed PHYSICAL EXAMINATION: Patient is lying in the bed , elderly appearing, thin built, well-developed, awake alert and oriented.. HEENT: Normocephalic. Neck is supple. Pupils reactive. Nostrils clear. Oral cavity is moist. Neck reveals no JVD, carotid bruits, or thyromegaly. CHEST EXAMINATION: Trachea is central. Symmetrical expansion. Bibasilar diminished sounds. No wheezing. Nonlabored breathing.. CARDIAC: Normal S1, S2 with no gallops. No murmurs ABDOMEN: Soft. Tender on palpation, bowel sounds normal. Large firm liver noted on the right. No abdominal bruits. Extremities: Bilateral lower extremity swelling with skin dislocation/mottling of the left lower extremity. Neurologically awake, alert, oriented x3. Patient is able to move all extremi ties.. No focal deficits noted. diffusely weak Skin: No rash or skin lesions. Cyanosis noted on lower extremities as well as upper extremities, more so on the right hand; left foot is discolored and blackened extending up to the ankle. Skin tear on coccyx. Psychiatric: Cooperative. Non-suicidal, anxious. Musculoskeletal: No joint swelling or deformity. Normal range of motion. Assessment: Bilateral lower extremity pain, swelling with recent history of femorofemoral bypass and left common femoral thromboendarterectomy with graft malfunction, went revascularization on September 01 with and left axillary to femoral bypass. Possible bilateral lower extremity cellulitis, present on admission continues on IV cefazolin Acute kidney injury likely prerenal, trending down Leukocytosis creasing up to 22.9. Will order blood cultures and rule out source of infection. History of DVT/PE and on anticoagulation with Xarelto at home, anticoagulation being placed on hold for vascular intervention pending clearance from vascular when okay to resume Anemia, likely of chronic disease Hyponatremia secondary to poor oral intake Mild hyperkalemia 5.2 on admission likely due to SIXTO, improved Large liver mass with metastatic lesions to lung. Patient is scheduled for outpatient PET scan. Status post liver biopsy 08/25/2023, likely metastatic disease although specimen was insufficient for diagnosis Abdominal aortic aneurysm stable from recent study Currently everyday smoker Moderate protein calorie malnutrition with a BMI of 23.4 GI prophylaxis DVT prophylaxis on Xarelto Full code Plan: -Patient is continued on antibiotics in the form of cefazolin for possible underlying cellulitis. Blood cell count remains elevated patient will be continued on antibiotics with blood cultures being taken as well as a follow-up chest x-ray. Consider ID consultation. -Vascular surgery evaluated the patient and patient also underwent CT of the lower extremity as well as chest and apparently the graft is down and vascular surgery is holding anticoagulation, status post revascularization further recommendations from vascular surgery pending. -Oncology following status post biopsy and there was noted necrotic tissue and likely metastatic disease although specimen was insufficient for diagnosis. Oncology is aware and patient underwent CT chest for evaluation with multiple lung nodules and has consulted pulmonary for further evaluation and possible bronchoscopy with biopsy for diagnosis. -Pulmonary has evaluated the patient recommending waiting bronchoscopy with biopsy until left lower extremity revascularization is done; on follow up today s/p revascularization pulmonary recommending comfort care measures. continue with pain management. Patient continues to report severe pain with Dilaudid and Newton, gabapentin. Has increased pain to the left foot today will increase dilaudid to every 3 hours. -PT/OT following, patient at this time continues with ischemic appearing limb s/p vascularization possible candidate for amputation. Although overall prognosis remains poor. -Prognosis is extremely poor guarded with multiple medical problems and comorbid conditions. Patient currently remains a full code and would like to receive treatment if there are options available. Will follow up in the AM with patient and family regarding recommendation for comfort measures. The impression and plan of care has been dictated by Marialuisa Montejo Nurse Practitioner as directed. Dr. Lia MD I have performed a history and physical examination and medical decision making of this patient, discussed the same with the dictator, and agree with the dictators assessment and plan as written, documented as a scribe. Based on total visit time, I have performed more than 50% of this visit. Objective - Vital Signs Vital signs: Vital Signs Temp 97.7 F 09/02/23 04:00 Pulse 16 L 09/02/23 11:56 Resp 16 09/02/23 08:00 BP 136/71 09/02/23 11:56 Pulse Ox 99 09/02/23 04:00 FiO2 21 08/27/23 20:23 Intake & Output 09/01/23 09/02/23 09/02/23 18:59 06:59 18:59 Intake Total 1012 240 Output Total 525 350 Balance 487 -350 240 Weight 59.874 kg Intake: IV 702 Oral 240 Blood Product 310 Rc As-1 Unit 310 [id number] Output: Urine 500 350 Estimated Blood Loss 25 Other: Voiding Method Indwelling Catheter Indwelling Catheter Indwelling Catheter # Bowel Movements 1 - Labs CBC & Chem 7: 09/02/23 09:26 09/02/23 09:26 Labs: Abnormal Lab Results - Last 24 Hours (Table) 09/01/23 09/02/23 09/02/23 Range/Units 14:58 09:26 09:26 WBC 20.07 H 22.9 H (4.50-10.00) X 10*3/uL RBC 2.65 L 3.09 L (4.10-5.20) X 10*6/uL Hgb 7.6 L 9.1 L (12.0-15.0) g/dL Hct 24.6 L 29.9 L (37.2-46.3) % MCHC 30.9 L 30.5 L (32.0-37.0) g/dL RDW 19.9 H 19.3 H (11.5-14.5) % Neutrophils # 21.6 H (1.3-7.7) k/uL Lymphocytes # 0.6 L (1.0-4.8) k/uL NRBC/100 WBC Diff 0.02 H (0.00-0.01) X 10*3/uL Sodium 132 L (137-145) mmol/L Carbon Dioxide 18 L (22-30) mmol/L BUN 24 H (7-17) mg/dL Glucose 71 L (74-99) mg/dL Calcium 7.5 L (8.4-10.2) mg/dL Assessment and Plan Time with Patient: Less than 30
--- NOTE | 2023-09-02 15:22 | P.PN ---
Subjective Progress Note Date: 09/02/23 Patient seen and examined. Doing well since surgery yesterday. Denies any new events overnight. Objective - Vital Signs Vital signs: Vital Signs Temp 97.7 F 09/02/23 04:00 Pulse 97 09/02/23 15:02 Resp 16 09/02/23 15:02 BP 127/68 09/02/23 15:02 Pulse Ox 99 09/02/23 04:00 FiO2 21 08/27/23 20:23 Intake & Output 09/01/23 09/02/23 09/02/23 18:59 06:59 18:59 Intake Total 1012 240 Output Total 525 350 200 Balance 487 -350 40 Weight 59.874 kg Intake: IV 702 Oral 240 Blood Product 310 Rc As-1 Unit 310 [id number] Output: Urine 500 350 200 Estimated Blood Loss 25 Other: Voiding Method Indwelling Catheter Indwelling Catheter Indwelling Catheter # Bowel Movements 1 - Exam General appearance: The patient is alert, oriented, appears in no acute distress. HET: Head is normocephalic and atraumatic. Pupils are equal and reactive. Neck: Supple. Abdomen: Hepatomegaly, tenderness. Extremities: Bilateral lower extremity swelling with weeping. Left toes purple, mottled, cold. Multiphasic signal right DP, no DP or PT signals left. Incisions clean, dry and intact Neurological: No focal deficits. - Labs CBC & Chem 7: 09/02/23 09:26 09/02/23 09:26 Labs: Abnormal Lab Results - Last 24 Hours (Table) 09/01/23 09/02/23 09/02/23 Range/Units 14:58 09:26 09:26 WBC 20.07 H 22.9 H (4.50-10.00) X 10*3/uL RBC 2.65 L 3.09 L (4.10-5.20) X 10*6/uL Hgb 7.6 L 9.1 L (12.0-15.0) g/dL Hct 24.6 L 29.9 L (37.2-46.3) % MCHC 30.9 L 30.5 L (32.0-37.0) g/dL RDW 19.9 H 19.3 H (11.5-14.5) % Neutrophils # 21.6 H (1.3-7.7) k/uL Lymphocytes # 0.6 L (1.0-4.8) k/uL NRBC/100 WBC Diff 0.02 H (0.00-0.01) X 10*3/uL Sodium 132 L (137-145) mmol/L Carbon Dioxide 18 L (22-30) mmol/L BUN 24 H (7-17) mg/dL Glucose 71 L (74-99) mg/dL Calcium 7.5 L (8.4-10.2) mg/dL Assessment and Plan Assessment: 1. Left femoral and popliteal artery occlusive disease status post femorofemoral bypass with CryoVein, occluded 2. Left lower extremity pain 3. Large liver mass with metastatic disease throughout the lungs 4. Acute kidney injury 5. History of DVT and pulmonary embolism Plan: Continue current management Pain control Discussed possible need for amputation which she is aware and agreeable if needed.
--- NOTE | 2023-09-02 15:37 | XR ---
EXAMINATION TYPE: XR chest 1V DATE OF EXAM: 09/02/2023 COMPARISON: 08/30/2023 HISTORY: 73-year-old female hypoxia and leukocytosis TECHNIQUE: Single frontal view of the chest is obtained. FINDINGS: Heart normal size. Hyperinflation. Left midlung nodularity and bilateral lower lung opacit ies persist. A screw within the right humeral head. Trace right pleural effusion. Narrowing of the ri ght subacromial space suggests underlying full-thickness rotator cuff tear. Right IJ CVC tip lower SV C. Subcutaneous emphysema in the left axilla. IMPRESSION: Similar findings of COPD with irregular and patchy infiltrates/pneumonia throughout the mid and lower lungs. Nodular appearance raises the possibility of either concurrent metastatic disease or atypical fungal/mycobacterial infections. Trace right pleural effusion persists.
[2023-09-02] MEDS: HYDROcodone/APAP 7.5-325MG 1 EACH TAB PO PRN (17:21)
[2023-09-03 09:33] LABS: Anisocytosis Slight; Basophils % (A) 0 %; Eosinophils % (A) 0 %; HCT 25.4 % (34.0-46.0); HGB 7.7 gm/dL (11.4-16.0); Hypochromasia Marked; Lymphocytes # (A) 0.5 k/uL (1.0-4.8); Lymphocytes % (A) 3 %; MCH 29.7 pg (25.0-35.0); MCHC 30.4 g/dL (31.0-37.0); MCV 97.7 fL (80.0-100.0); Macrocytosis Slight; Mean Platelet Volume 8.4; Monocytes # (A) 0.3 k/uL (0-1.0); Monocytes % (A) 2 %; Neutrophils # (A) 16.4 k/uL (1.3-7.7); Neutrophils % (A) 94 %; Platelet Count 160 k/uL (150-450); RDW 19.4 % (11.5-15.5); WBC 17.4 k/uL (3.8-10.6)
[2023-09-03 09:57] LABS: African American GFR (CKD) 75 (>60 ml/min/1.73 sqM); Anion Gap 4 mmol/L; Blood Urea Nitrogen 23 mg/dL (7-17); Calcium 7.6 mg/dL (8.4-10.2); Carbon Dioxide 23 mmol/L (22-30); Chloride 106 mmol/L (98-107); Glucose 94 mg/dL (74-99); Magnesium 1.8 mg/dL (1.6-2.3); Non-African American GFR(CKD) 65 (>60 ml/min/1.73 sqM); Potassium 3.9 mmol/L (3.5-5.1); Sodium 133 mmol/L (137-145)
--- NOTE | 2023-09-03 12:49 | P.PN ---
Subjective Progress Note Date: 09/03/23 Patient seen and examined. Denies any significant changes since surgery. Still with left lower extremity pain Objective - Vital Signs Vital signs: Vital Signs Temp 97.6 F 09/03/23 04:42 Pulse 90 09/03/23 12:19 Resp 16 09/03/23 11:01 BP 127/69 09/03/23 11:01 Pulse Ox 99 09/03/23 04:42 FiO2 21 08/27/23 20:23 Intake & Output 09/02/23 09/03/23 09/03/23 17:59 06:59 18:59 Intake Total 240 Output Total 400 Balance -160 Intake: Oral 240 Output: Urine 400 Other: Voiding Method Indwelling Catheter - Exam General appearance: The patient is alert, oriented, appears in no acute distress. HET: Head is normocephalic and atraumatic. Pupils are equal and reactive. Neck: Supple. Abdomen: Hepatomegaly, tenderness. Chest: Purpura over the anterior chest. Extremities: Bilateral lower extremity swelling with weeping. Left toes purple, mottled, cold. Multiphasic signal right DP, no DP or PT signals left. Incisions clean, dry and intact Neurological: No focal deficits. - Labs CBC & Chem 7: 09/03/23 08:56 09/03/23 08:56 Labs: Abnormal Lab Results - Last 24 Hours (Table) 09/02/23 09/03/23 09/03/23 Range/Units 09:26 08:56 08:56 WBC 22.9 H 17.4 H (3.8-10.6) k/uL RBC 3.09 L 2.60 L (3.80-5.40) m/uL Hgb 9.1 L 7.7 L (11.4-16.0) gm/dL Hct 29.9 L 25.4 L (34.0-46.0) % MCHC 30.5 L 30.4 L (31.0-37.0) g/dL RDW 19.3 H 19.4 H (11.5-15.5) % Neutrophils # 21.6 H 16.4 H (1.3-7.7) k/uL Lymphocytes # 0.6 L 0.5 L (1.0-4.8) k/uL Sodium 133 L (137-145) mmol/L BUN 23 H (7-17) mg/dL Calcium 7.6 L (8.4-10.2) mg/dL Assessment and Plan Assessment: Postop left ax to femoral bypass 1. Left femoral and popliteal artery occlusive disease status post femorofemoral bypass with CryoVein, occluded 2. Left lower extremity pain 3. Large liver mass with metastatic disease throughout the lungs 4. Acute kidney injury 5. History of DVT and pulmonary embolism Plan: Continue current management, continue pain control. Discussed likely need for amputation. Patient seemingly understands and is agreeable.
--- NOTE | 2023-09-03 13:28 | P.PN ---
Subjective Progress Note Date: 09/03/23 This is a 73-year-old female patient with a known history of pulmonary embolism, DVT of the left leg, uterine cancer with previous hysterectomy, chronic obstructive pulmonary disease with chronic and ongoing tobacco dependence. She had presented here to the emergency room back on August 22, 2023 with c omplaints of left leg pain. She has had chronic pain and had previously had surgery 2 weeks prior to her arrival here. She also was known to have suspected liver cancer with metastasis and was waiting on an outpatient PET scan. CT scan of the abdomen did reveal a post femoral-femoral bypass changes with fluid collection around the graft. There is a large hepatic mass with metastatic disease throughout the lungs. Similar infrarenal abdominal aortic aneurysm from previous scan in December 2022. She did have a liver biopsy here on August 25, 2023 that revealed necrotic cellular material suggestive of necrotic neoplasm but insufficient for diagnosis due to lack of viable tissue. We were consulted today for possible lung biopsy. 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 Her Xarelto is on hold and they are planning for axillofemoral bypass grafting on 09/01/2023. She is seen today in consultation on the regular medical floor. She is currently sitting up in bed. She is having quite a bit of musculoskeletal pain. She is also having quite a bit of left lower extremity pain. She is maintaining O2 saturations in the 90s on room air. She is afebrile. Hemodynamically stable. She denies any worsening shortness of breath, cough or congestion. No hemoptysis. The patient is seen today August 31, 2023 in follow-up on the regular medical floor. She is currently sitting up in bed having breakfast. Awake and alert in no acute distress. Maintaining O2 saturations in the 90s on room air. Ultrasound of the chest revealed small bilateral pleural effusions with 2.8 cm fluid on the right and 1.9 cm on the left. Not marked for thoracentesis. She is status post 2 units of packed red blood cells this admission. Current hemoglobin 8.0. Platelets 227. White count 14.2. Sodium 134. Potassium 4.0. Bicarb 24. BUN 17. Creatinine 0.7. Glucose 80. She remains on cefazolin. Normal saline at 50 MLS per hour. The patient is seen today September 01, 2023 in follow-up on the regular medical floor. She is currently resting in bed. Awake and alert in no acute distress. Maintaining O2 saturations in the mid 90s on room air. She is afebrile. Hemodynamically stable. Planning for an axillobifemoral bypass today with vascular surgery. She is status post 2 units of packed red blood cells this admission. Current hemoglobin 8.3. Platelets 193. White count 16.6. Sodium 131. Potassium 4.5. Bicarb 22. BUN 22. Creatinine 0.64. Glucose 88. Remains on cefazolin. Continued on bronchodilators. The patient is seen today September 02, 2023 in follow-up on the right on the selective care unit. She is awake and alert in no acute distress. She did undergo a left axillary to femoral bypass grafting yesterday. Her left lower extremity still quite discolored. Still having pain. Pulse is absent. She is status post 3 units of packed red blood cells this admission. Current hemoglobin 9.1. Platelets 186. White count 22.9. Sodium 132. Potassium 3.9. Bicarb 18. BUN 24. Creatinine 0.74. Glucose 71. She is currently maintaining good O2 saturations in the 90s on 4 L/min per nasal cannula. Afebrile. Hemodynamically stable. She is continued on cefazolin. The patient is seen today September 03, 2023 in follow-up on the selective care unit. She is currently resting in bed. Awake and alert in no acute distress. Still with significant left lower extremity pain. No pedal or posterior tibial pulses palpable. Leg remains very discolored cool to touch and mottled. She denies any worsening shortness of breath, cough or congestion. Chest x-ray con tinues to show evidence of COPD with irregular and patchy infiltrate/pneumonia throughout the mid and lower lungs. Nodular appearances raises the possibility of metastatic disease. She is status post 3 units of packed red blood cells this admission. Current hemoglobin 7.7. Platelets 160. White count 17.4. Sodium 133. Potassium 3.9. Bicarb 23. BUN 23. Creatinine 0.90. She is continued on bronchodilators. Remains on cefazolin. Dilaudid and [place] for pain control. Objective - Vital Signs Vital signs: Vital Signs Temp 97.6 F 09/03/23 04:42 Pulse 90 09/03/23 12:19 Resp 16 09/03/23 11:01 BP 127/69 09/03/23 11:01 Pulse Ox 99 09/03/23 04:42 FiO2 21 08/27/23 20:23 Intake & Output 09/02/23 09/03/23 09/03/23 17:59 06:59 18:59 Intake Total 480 Output Total 400 Balance 80 Intake: Oral 480 Output: Urine 400 Other: Voiding Method Indwelling Catheter - Exam GENERAL EXAM: Alert, frail, pleasant 73-year-old female, on 3 L nasal cannula, fairly comfortable in no apparent distress. HEAD: Normocephalic. EYES: Normal reaction of pupils, equal size. NOSE: Clear with pink turbinates. THROAT: No erythema or exudates. NECK: No masses, no JVD. CHEST: No chest wall deformity. LUNGS: Equal air entry with faint crackles in the posterior bases. CVS: S1 and S2 normal with no audible murmur, regular rhythm. ABDOMEN: Distended, normal bowel sounds, no guarding or rigidity. SPINE: No scoliosis or deformity SKIN: Multiple areas of ecchymosis, skin tear on coccyx CENTRAL NERVOUS SYSTEM: No focal deficits, tone is normal in all 4 extremities. EXTREMITIES: Bilateral lower extremity edema left greater than right with multiple areas of ecchymosis, coolness and discoloration more so on the left. Dressing to the left lower extremity dry and intact - Labs CBC & Chem 7: 09/03/23 08:56 09/03/23 08:56 Labs: Abnormal Lab Results - Last 24 Hours (Table) 09/03/23 09/03/23 Range/Units 08:56 08:56 WBC 17.4 H (3.8-10.6) k/uL RBC 2.60 L (3.80-5.40) m/uL Hgb 7.7 L (11.4-16.0) gm/dL Hct 25.4 L (34.0-46.0) % MCHC 30.4 L (31.0-37.0) g/dL RDW 19.4 H (11.5-15.5) % Neutrophils # 16.4 H (1.3-7.7) k/uL Lymphocytes # 0.5 L (1.0-4.8) k/uL Sodium 133 L (137-145) mmol/L BUN 23 H (7-17) mg/dL Calcium 7.6 L (8.4-10.2) mg/dL Assessment and Plan Assessment: Left leg pain, swelling and discoloration secondary to occlusion of the left superficial femoral artery extending from its origin to the popliteal artery. Reconstitution with poor visualization of the anterior posterior tibial arteries. Status post left axillobifemoral bypass grafting September 01, 2023. Will most likely need amputation per vascular surgery Liver mass with biopsy on 08/25/2023 revealing fragments of necrotic cellular material suggestive of necrotic neoplasm, insufficient for diagnosis due to lack of viable tissue Right apical masslike density. Scattered pulmonary nodules mid and lower lung beatty. Patchy basilar infiltrates. Small right effusion. Suspect metastatic disease Recent surgery on 08/04/2023 with left common femoral thromboendarterectomy for occlusive disease. Was on Xarelto History of DVT/PE History of abdominal aortic aneurysm Chronic and ongoing tobacco dependence Anorexia/cachexia syndrome with a BMI of 23.4 kg/m Plan: The patient was seen and evaluated Labs and medications reviewed Remains on cefazolin Plan is for possible amputation tomorrow We will continue to follow I have personally seen and examined the patient, performed the documentation and the assessment and plan as written. Number of minutes spent on the visit: 10.
--- NOTE | 2023-09-03 19:01 | P.PN ---
Subjective Progress Note Date: 09/03/23 Patient is a 73-year-old female with a past medical history of DVT/PE on anticoagulation, peripheral vascular disease with left leg pain status post femoral to femoral bypass and left common femoral thromboendarterectomy on 08/04/2023, history of cholecystectomy on 07/11/2023 presents to ER with complaints of left lower extremity pain swelling and discoloration. Patient has been having chronic pain which has improved during the last 7 to 10 days. Patient does have history of liver mass and her physician is planning to get PET scan as an outpatient.. Patient has not seen oncology before. Otherwise patient denied any complaints of fever or chills. No nausea vomiting. No diarrhea. No cough or sputum production. No chest pain. EKG showed sinus rhythm. CT of the abdomen pelvis showed post femoral-femoral bypass changes with fluid collection around the graft. 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 Similar infrarenal abdominal aortic aneurysm back to at least 01/04/2023. Measuring 3.7 x 4.4 cm. Laboratory data showed WBC 18.8 hemoglobin 7.1, MCV 88.7 and platelets 473 INR 1.6, sodium 130 potassium 5.2 chloride 100 bicarb is 19 BUN 68, creatinine 2.03 and blood sugar 100 Total bili 1.9 AST 89 ALT 43 and alk phos 428 and albumin 2.5 and lipase level 977 08/24/2023 Patient is seen and evaluated in follow-up today being followed by vascular surgery along with oncology and interventional radiology was consulted for possible biopsy. Patient continued on empiric antibiotics with concerns of possible cellulitis of the lower extremities. Patient evaluated by vascular surgery as patient is recent femoropopliteal bypass and left common femoral thromboendarterectomy with no plans of revascularization interventions at this time. Patient okay to resume anticoagulation once cleared by oncology. Will hold on anticoagulation for now as hemoglobin is low and post 1 unit of PRBCs hemoglobin is 7.7 today. Discussing possible biopsy of the liver and will hold on anticoagulation including holding subcutaneous heparin for now. Interventional radiology consulted and pending. Patient with significant weakness would recommend being evaluated by PT/OT therapy. Overall treatment plan discussed with patient and would like to receive treatment if available. W ill discuss further with oncology once biopsy is performed. 08/25/2023 Patient is seen in follow-up today currently n.p.o. scheduled to undergo ultrasound for possible liver biopsy with interventional radiology. Patient maintained on antibiotics as severe and patient is maintained on Dilaudid. Will also add [place] for breakthrough pain as patient reports 10/10 on the pain scale. Vascular surgery evaluated the patient with no plans of revascularization or surgical intervention on that left lower extremity. No contraindication to resume anticoagulation and Xarelto is being resumed. Patient is afebrile with no reports of chest pain or shortness of breath. Patient is currently wearing 2 L although does not normally wear oxygen outpatient. Encouraged oral intake and increased activity as tolerated. Patient to undergo biopsy and awaiting pathology as there is concerns of metastasis from the lungs as well. Overall prognosis is poor and guarded left at this time. 08/26/2023 Patient is resting in the bed. Awake alert and oriented x 3. No complaints of chest pain or shortness of breath. Patient still having left lower extremity discoloration of the toes. Swelling is about the same. Right lower extremity swelling did improve. Patient is s/p liver biopsy. Continued on anticoagulation with Xarelto. Patient is on antibiotics, cefazolin. Laboratory showed WBC 13.4 hemoglobin 7.7 and platelets 217 Sodium 130 potassium 3.5 chloride 101 bicarb is 24 BUN 25 and creatinine 0.93 and blood sugar 103 and calcium 7.8 and magnesium 2.2 08/27/2023 Patient is resting in the bed. Awake alert and oriented x 3. No nausea vomiting abdominal pain or diarrhea. Currently on room air. Still having left lower extremity discoloration of the toes and swelling. Hemoglobin 6.9 this morning and is being transfused with 1 unit of PRBC Other laboratory data showed WBC trending down to 12.8 hemoglobin 6.9 and platelets 218 sodium 134 potassium 4.3 chloride 103 bicarb is 23.5 BUN 19 and creatinine 1.0 and blood sugar 96 and calcium 8.1. Patient is on anticoagulation with Xarelto and also antibiotics cefazolin. Pain is controlled. 08/28/2023 Patient is seen and evaluated in follow-up today with multiple medical consultations following including vascular surgery and oncology. Patient continues to have a white count although is trending down and will follow-up with repeat labs. Patient is status post biopsy of the liver which is pending. Patient continues to report significant pain in the left lower extremity with inability to ambulate and was evaluated by vascular surgery with no plans of revascularization and also discussed with the patient about possible amputation for palliative pain relief as there are no plans or availabilities for further surgical intervention on that left lower extremity. Anticoagulation resumed. Patient remains on cefazolin with concerns of possible cellulitis of the lower extremities. Recommend repeat labs in the a.m. and continued PT/OT therapy 08/29/2023 Patient is seen in follow-up this morning with vascular and oncology following. Patient continues to report significant 10/10 pain of the left lower extremity and repeat CT angiogram being ordered. Patient underwent biopsy of the liver although suggestive of metastatic disease, specimen was insufficient for diagnosis. Oncology discussing looking into CT chest to evaluate the lung nodul es for possible biopsy and/or bronchoscopy. Patient is afebrile, white count remains slightly elevated, no reports of chest pain or shortness of breath and patient is on room air. Patient continues on antibiotics with concerns of lower extremity cellulitis as well. Encouraged to increase activity as tolerated although patient reports unable to stand due to the pain on the left leg. Recommend PT/OT therapy daily. 08/30/2023 Patient is seen and evaluated today with vascular surgery following and patient underwent CT angio runoff with plans for vascular intervention on Monday as the graft on the left is down and patient reports continued significant left leg pain and inability to ambulate or place any weight on it due to the pain. Multiple medications including Dilaudid, [place], gabapentin have been added with minimal pain relief. Patient also had CT chest with multiple lung nodules noted and oncology following recommending pulmonary consultation for possible bronchoscopy with biopsy for confirmation of diagnosis. Patient maintained on Xarelto and will be placed on hold for surgical intervention for Monday. Patient is afebrile with no reported chest pain or shortness of breath. Patient not eating very much she reports does not have much of an appetite. Patient is getting anxious about overall treatment plan moving forward. Overall prognosis is extremely poor and guarded. Patient remains full code 08/31/2023 Patient is seen in follow-up this morning continues to report severe left lower extremity leg pain with vascular surgery following plans of revascularization and evaluation of the graft on 09/01/[address] Almanza. Patient will be n.p.o. at midnight. Patient was evaluated by pulmonary recommending revascularization prior to bronchoscopy and/or biopsy of the lung nodules. Patient is currently sitting up in the bed on room air and denies any chest pain or shortness of breath. Patient reports is eating and tolerating with no reported nausea or vomiting. 09/01/2023 Patient is seen and evaluated in follow-up this morning currently n.p.o. as patient is scheduled to undergo revascularization intervention with Dr. Almanza this morning. Being taken to the OR currently. Vital signs are stable and we will follow-up and await surgical report. 09/02/2023 Patient is seen in follow-up today on the stepdown unit. Patient underwent left axillary to femoral bypass yesterday secondary to a failed femoral to femoral bypass. Patient was seen in follow-up with vascular surgery today who per patient has discussed possible surgical amputation of the left leg. The left foot today is blackened no pulse noted. Additionally patient's abdomen remains distended. Pulmonary following and recommending bronchoscopy versus thoracentesis for diagnostic measures regarding the right upper lobe mass. Patient is off Xarelto at this time. Her white blood cell count is elevated at 22.9, hemoglobin 9.1., Sodium 132, renal function is stable BUN of 24, creatinine of 0.74. She remains on IV cefazolin. 09/03/2023 Patient is seen in follow-up today on the stepdown unit. She continues to report significant pain to the left lower extremity currently rating it 8 out of 10. She is maintained on a combination of IV Dilaudid every 3 hours, gabapentin, [place] 7.5. Chest x-ray yesterday afternoon shows similar findings of COPD with irregular patchy infiltrates/pneumonia throughout the mid and lower lungs this is a nodular appearance raises the possibility of either concurrent metastatic disease or an atypical fungal mycobacterial infections. A trace right pleural effusion persists. Patient is seen in follow-up today by vascular surgery with recommendations for possible amputation and again patient is in agreements with this. Discussed metastatic liver disease with patient and again patient is wanting to continue with current treatment plan and for treatment even if it is palliative. Patient is not ready for hospice or comfort measures at this time. Plans for biopsy are on hold until patient finishes treatment for the ischemic limb. Patient understanding of this. Patient continues on IV cefazolin. Her blood work is improving white blood cell count down to 17.4, hemoglobin 7.7, sodium 133, BUN of 23, creatinine of 0.90. Magnesium 1.8. Medications reviewed. Review of systems: Constitutional: No reports of fatigue, fever, or chills Cardiovascular: No reports of chest pain or palpitations Respiratory: No reports of shortness of breath or cough GI: No reports of nausea, vomiting, or diarrhea, no reports abdominal pain, reports eating a little better : No reports of dysuria or retention Neurovascular: reports of generalized weakness, reports continued left lower extremity pain 02/02 All medications have been reviewed PHYSICAL EXAMINATION: Patient is lying in the bed , elderly appearing, thin built, well-developed, awake alert and oriented.. HEENT: Normocephalic. Neck is supple. Pupils reactive. Nostrils clear. Oral cavity is moist. Neck reveals no JVD, carotid bruits, or thyromegaly. CHEST EXAMINATION: Trachea is central. Symmetrical expansion. Bibasilar diminished sounds. No wheezing. Nonlabored breathing.. CARDIAC: Normal S1, S2 with no gallops. No murmurs ABDOMEN: Soft. Tender on palpation, bowel sounds normal. Large firm liver noted on the right. No abdominal bruits. Extremities: Bilateral lower extremity swelling with skin dislocation/mottling of the left lower extremity. Neurologically awake, alert, oriented x3. Patient is able to move all extremities.. No focal deficits noted. diffusely weak Skin: No rash or skin lesions. Cyanosis noted on lower extremities as well as upper extremities, more so on the right hand; left foot is discolored and blackened extending up to the ankle. Skin tear on coccyx. Psychiatric: Cooperative. Non-suicidal, anxious. Musculoskeletal: No joint swelling or deformity. Normal range of motion. Assessment: Bilateral lower extremity pain, swelling with recent history of femorofemoral bypass and left common femoral thromboendarterectomy with graft malfunction, went revascularization on September 01 with and left axillary to femoral bypass. Possible bilateral lower extremity cellulitis, present on admission continues on IV cefazolin Acute kidney injury likely prerenal, trending down Leukocytosis improving and patient is continued on IV cefazolin History of DVT/PE and on anticoagulation with Xarelto at home, anticoagulation being placed on hold for vascular intervention pending clearance from vascular when okay to resume Anemia, likely of chronic disease Hyponatremia secondary to poor oral intake Mild hyperkalemia 5.2 on admission likely due to [place], improved Large liver mass with metastatic lesions to lung. Patient is scheduled for outpatient PET scan. Status post liver biopsy 08/25/2023, likely metastatic disease although specimen was insufficient for diagnosis Abdominal aortic aneurysm stable from recent study Currently everyday smoker Moderate protein calorie malnutrition with a BMI of 23.4 GI prophylaxis DVT prophylaxis on Xarelto Full code Plan: -Patient is continued on antibiotics in the form of cefazolin for possible underlying cellulitis. White blood cell count is improving. Blood cultures are pending. -Xarelto remains on hold status post revascularization, pending surgical clearance to resume. -Oncology following status post biopsy and there was noted necrotic tissue and likely metastatic disease although specimen was insufficient for diagnosis. Oncology is aware and patient underwent CT chest for evaluation with multiple lung nodules and has consulted pulmonary for further evaluation and possible bronchoscopy with biopsy for diagnosis. -Pulmonary has evaluated the patient recommending waiting bronchoscopy with biopsy until left lower extremity revascularization is done; on follow up today s/p revascularization pulmonary recommending comfort care measures. continue with pain management. Patient continues to report severe pain with Dilaudid and [place], gabapentin. Has increased pain to the left foot today will increase dilaudid to every 3 hours. -PT/OT following, patient at this time continues with ischemic appearing limb s/p vascularization possible candidate for amputation. Although overall progno sis remains poor. -Prognosis is extremely poor guarded with multiple medical problems and comorbid conditions. Patient currently remains a full code and would like to receive treatment if there are options available. Discussed with patient today and she is not ready for comfort care or hospice measures. The impression and plan of care has been dictated by Marialuisa Montejo Nurse Practitioner as directed. Dr. Lia MD I have performed a history and physical examination and medical decision making of this patient, discussed the same with the dictator, and agree with the dictators assessment and plan as written, documented as a scribe. Based on total visit time, I have performed more than 50% of this visit. Objective - Vital Signs Vital signs: Vital Signs Temp 97.6 F 09/03/23 04:42 Pulse 92 09/03/23 16:09 Resp 16 09/03/23 16:00 BP 137/73 09/03/23 16:00 Pulse Ox 99 09/03/23 04:42 FiO2 21 08/27/23 20:23 Intake & Output 09/02/23 09/03/23 09/03/23 17:59 06:59 18:59 Intake Total 480 Output Total 1250 Balance -770 Intake: Oral 480 Output: Urine 1250 Other: Voiding Method Indwelling Catheter # Voids 0 - Labs CBC & Chem 7: 09/03/23 08:56 09/03/23 08:56 Labs: Abnormal Lab Results - Last 24 Hours (Table) 09/03/23 09/03/23 Range/Units 08:56 08:56 WBC 17.4 H (3.8-10.6) k/uL RBC 2.60 L (3.80-5.40) m/uL Hgb 7.7 L (11.4-16.0) gm/dL Hct 25.4 L (34.0-46.0) % MCHC 30.4 L (31.0-37.0) g/dL RDW 19.4 H (11.5-15.5) % Neutrophils # 16.4 H (1.3-7.7) k/uL Lymphocytes # 0.5 L (1.0-4.8) k/uL Sodium 133 L (137-145) mmol/L BUN 23 H (7-17) mg/dL Calcium 7.6 L (8.4-10.2) mg/dL Assessment and Plan Time with Patient: Less than 30
[2023-09-03] MEDS: HEPARIN SODIUM,PORCINE 5,000 UNIT/ML 1 ML VIAL SQ SCH (23:14)
[2023-09-04 09:04] LABS: Anisocytosis Slight; Basophils % (A) 0 %; Eosinophils % (A) 0 %; HCT 28.5 % (34.0-46.0); HGB 8.5 gm/dL (11.4-16.0); Hypochromasia Marked; Lymphocytes # (A) 0.6 k/uL (1.0-4.8); Lymphocytes % (A) 3 %; MCHC 29.9 g/dL (31.0-37.0); MCV 96.8 fL (80.0-100.0); Macrocytosis Slight; Mean Platelet Volume 8.8; Monocytes # (A) 0.5 k/uL (0-1.0); Monocytes % (A) 3 %; Neutrophils # (A) 18.3 k/uL (1.3-7.7); Neutrophils % (A) 94 %; Platelet Count 198 k/uL (150-450); RBC 2.95 m/uL (3.80-5.40); RDW 19.3 % (11.5-15.5); WBC 19.6 k/uL (3.8-10.6)
[2023-09-04 09:26] LABS: African American GFR (CKD) >90 (>60 ml/min/1.73 sqM); Anion Gap 1 mmol/L; Blood Urea Nitrogen 20 mg/dL (7-17); Calcium 7.7 mg/dL (8.4-10.2); Carbon Dioxide 24 mmol/L (22-30); Chloride 106 mmol/L (98-107); Glucose 79 mg/dL (74-99); Magnesium 1.7 mg/dL (1.6-2.3); Non-African American GFR(CKD) 87 (>60 ml/min/1.73 sqM); Potassium 4.1 mmol/L (3.5-5.1); Sodium 131 mmol/L (137-145)
--- NOTE | 2023-09-04 11:24 | P.PN ---
Subjective Progress Note Date: 09/04/23 Principal diagnosis: Peripheral arterial disease Patient is seen and examined today as a follow-up. She states she is not doing well. She is not feeling well. Her breathing is becoming a little worse and she states that she feels some shortness of breath. She is coughing. She has right upper extremity swelling, bilateral lower extremity swelling. She underwent left axilla femoral bypass, but complains still significant pain in the left lower extremity especially her foot. Objective - Vital Signs Vital signs: Vital Signs Temp 98 F 09/04/23 04:00 Pulse 76 09/04/23 09:08 Resp 18 09/04/23 04:00 BP 112/60 09/04/23 04:00 Pulse Ox 94 L 09/04/23 04:00 FiO2 21 08/27/23 20:23 Intake & Output 09/03/23 09/04/23 09/04/23 18:59 06:59 18:59 Intake Total 480 Output Total 1250 800 Balance -770 -800 Intake: Oral 480 Output: Urine 1250 800 Other: Voiding Method Indwelling Catheter Indwelling Catheter # Voids 0 - Exam General appearance: The patient is alert, oriented, appears in no acute distr ess. HET: Head is normocephalic and atraumatic. Pupils are equal and reactive. Neck: Supple. Heart: Regular. Lungs: Equal expansion, normal respiratory effort. Abdomen: Hepatomegaly, tenderness. Extremities: Left axillary incision is well-approximated. Bilateral lower extremity swelling with weeping. Left toes purple, mottled, cold. Incisions clean dry and intact. Neurological: No focal deficits. - Labs CBC & Chem 7: 09/04/23 08:38 09/04/23 08:38 Labs: Abnormal Lab Results - Last 24 Hours (Table) 09/03/23 09/04/23 09/04/23 Range/Units 08:56 08:38 08:38 WBC 19.6 H (3.8-10.6) k/uL RBC 2.95 L (3.80-5.40) m/uL Hgb 8.5 L (11.4-16.0) gm/dL Hct 28.5 L (34.0-46.0) % MCHC 29.9 L (31.0-37.0) g/dL RDW 19.3 H (11.5-15.5) % Neutrophils # 18.3 H (1.3-7.7) k/uL Lymphocytes # 0.6 L (1.0-4.8) k/uL Sodium 133 L 131 L (137-145) mmol/L BUN 23 H 20 H (7-17) mg/dL Calcium 7.6 L 7.7 L (8.4-10.2) mg/dL Microbiology - Last 24 Hours (Table) 09/02/23 14:46 Blood Culture - Preliminary Blood Assessment and Plan Assessment: 1. 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 Left lower extremity pain 3. Large liver mass with metastatic disease throughout the lungs 4. Acute kidney injury 5. History of DVT and pulmonary embolism Plan: 1. Hold Xarelto 2. Continue pain management. Gabapentin added for pain management 3. Continue with recommendations from oncology 4. Patient is status post left axillary to femoral bypass 5. Plan for left [id number] amputation 09/06/2023 Thank you for this consultation, we will continue to follow. The impression and plan of care has been dictated as directed. Dr. Benjamin I performed a history and examination of this patient, discussed the same with the dictator. I agree with the dictator's note ,documented as a scribe. Any additional findings or plans will be noted.
[2023-09-04] MEDS: MAGNESIUM SULFATE-D5W PMX 1 GM in DEXTROSE/WATER 1 100ML.BAG IVPB ONE (13:38)
--- NOTE | 2023-09-04 14:36 | P.PN ---
Subjective Progress Note Date: 09/04/23 This is a 73-year-old female patient with a known history of pulmonary embolism, DVT of the left leg, uterine cancer with previous hysterectomy, chronic obstructive pulmonary disease with chronic and ongoing tobacco dependence. She had presented here to the emergency room back on August 22, 2023 with c omplaints of left leg pain. She has had chronic pain and had previously had surgery 2 weeks prior to her arrival here. She also was known to have suspected liver cancer with metastasis and was waiting on an outpatient PET scan. CT scan of the abdomen did reveal a post femoral-femoral bypass changes with fluid collection around the graft. There is a large hepatic mass with metastatic disease throughout the lungs. Similar infrarenal abdominal aortic aneurysm from previous scan in December 2022. She did have a liver biopsy here on August 25, 2023 that revealed necrotic cellular material suggestive of necrotic neoplasm but insufficient for diagnosis due to lack of viable tissue. We were consulted today for possible lung biopsy. 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 Her Xarelto is on hold and they are planning for axillofemoral bypass grafting on 09/01/2023. She is seen today in consultation on the regular medical floor. She is currently sitting up in bed. She is having quite a bit of musculoskeletal pain. She is also having quite a bit of left lower extremity pain. She is maintaining O2 saturations in the 90s on room air. She is afebrile. Hemodynamically stable. She denies any worsening shortness of breath, cough or congestion. No hemoptysis. The patient is seen today August 31, 2023 in follow-up on the regular medical floor. She is currently sitting up in bed having breakfast. Awake and alert in no acute distress. Maintaining O2 saturations in the 90s on room air. Ultrasound of the chest revealed small bilateral pleural effusions with 2.8 cm fluid on the right and 1.9 cm on the left. Not marked for thoracentesis. She is status post 2 units of packed red blood cells this admission. Current hemoglobin 8.0. Platelets 227. White count 14.2. Sodium 134. Potassium 4.0. Bicarb 24. BUN 17. Creatinine 0.7. Glucose 80. She remains on cefazolin. Normal saline at 50 MLS per hour. The patient is seen today September 01, 2023 in follow-up on the regular medical floor. She is currently resting in bed. Awake and alert in no acute distress. Maintaining O2 saturations in the mid 90s on room air. She is afebrile. Hemodynamically stable. Planning for an axillobifemoral bypass today with vascular surgery. She is status post 2 units of packed red blood cells this admission. Current hemoglobin 8.3. Platelets 193. White count 16.6. Sodium 131. Potassium 4.5. Bicarb 22. BUN 22. Creatinine 0.64. Glucose 88. Remains on cefazolin. Continued on bronchodilators. The patient is seen today September 02, 2023 in follow-up on the right on the selective care unit. She is awake and alert in no acute distress. She did undergo a left axillary to femoral bypass grafting yesterday. Her left lower extremity still quite discolored. Still having pain. Pulse is absent. She is status post 3 units of packed red blood cells this admission. Current hemoglobin 9.1. Platelets 186. White count 22.9. Sodium 132. Potassium 3.9. Bicarb 18. BUN 24. Creatinine 0.74. Glucose 71. She is currently maintaining good O2 saturations in the 90s on 4 L/min per nasal cannula. Afebrile. Hemodynamically stable. She is continued on cefazolin. The patient is seen today September 03, 2023 in follow-up on the selective care unit. She is currently resting in bed. Awake and alert in no acute distress. Still with significant left lower extremity pain. No pedal or posterior tibial pulses palpable. Leg remains very discolored cool to touch and mottled. She denies any worsening shortness of breath, cough or congestion. Chest x-ray con tinues to show evidence of COPD with irregular and patchy infiltrate/pneumonia throughout the mid and lower lungs. Nodular appearances raises the possibility of metastatic disease. She is status post 3 units of packed red blood cells this admission. Current hemoglobin 7.7. Platelets 160. White count 17.4. Sodium 133. Potassium 3.9. Bicarb 23. BUN 23. Creatinine 0.90. She is continued on bronchodilators. Remains on cefazolin. Dilaudid and Crum for pain control. The patient is seen today September 04, 2023 in follow-up on the selective care unit. She is currently resting in bed. Awake and alert in no acute distress. Still having discomfort in the left lower extremity. He is currently maintaining O2 saturations in the 90s on 4 L/min per nasal cannula. She is afebrile. Hemodynamically stable. White count 19.6. Hemoglobin 8.5. Platelets 198. Sodium 131. Potassium 4.1. Bicarb 24. BUN 20. Creatinine 0.70. Glucose 87. She remains on cefazolin. Heparin for DVT prophylaxis. Continued on bronchodilators. Pain medication in the form of Dilaudid and Crum. Objective - Vital Signs Vital signs: Vital Signs Temp 97.2 F L 09/04/23 11:54 Pulse 94 09/04/23 11:54 Resp 20 09/04/23 11:54 BP 108/71 09/04/23 11:54 Pulse Ox 94 L 09/04/23 11:54 FiO2 21 08/27/23 20:23 Intake & Output 09/03/23 09/04/23 09/04/23 18:59 06:59 18:59 Intake Total 480 Output Total 1250 800 Balance -770 -800 Intake: Oral 480 Output: Urine 1250 800 Other: Voiding Method Indwelling Catheter Indwelling Catheter Indwelling Catheter # Voids 0 - Exam GENERAL EXAM: Alert, frail, 73-year-old female, on 4 L nasal cannula, comfortable in no apparent distress. HEAD: Normocephalic. EYES: Normal reaction of pupils, equal size. NOSE: Clear with pink turbinates. THROAT: No erythema or exudates. NECK: No masses, no JVD. CHEST: No chest wall deformity. LUNGS: Equal air entry with faint crackles in the posterior bases. CVS: S1 and S2 normal with no audible murmur, regular rhythm. ABDOMEN: Distended, normal bowel sounds, no guarding or rigidity. SPINE: No scoliosis or deformity SKIN: Multiple areas of ecchymosis, skin tear on coccyx CENTRAL NERVOUS SYSTEM: No focal deficits, tone is normal in all 4 extremities. EXTREMITIES: Bilateral lower extremity edema left greater than right with multiple areas of ecchymosis, coolness and discoloration more so on the left. Dressing to the left lower extremity dry and intact - Labs CBC & Chem 7: 09/04/23 08:38 09/04/23 08:38 Labs: Abnormal Lab Results - Last 24 Hours (Table) 09/04/23 09/04/23 Range/Units 08:38 08:38 WBC 19.6 H (3.8-10.6) k/uL RBC 2.95 L (3.80-5.40) m/uL Hgb 8.5 L (11.4-16.0) gm/dL Hct 28.5 L (34.0-46.0) % MCHC 29.9 L (31.0-37.0) g/dL RDW 19.3 H (11.5-15.5) % Neutrophils # 18.3 H (1.3-7.7) k/uL Lymphocytes # 0.6 L (1.0-4.8) k/uL Sodium 131 L (137-145) mmol/L BUN 20 H (7-17) mg/dL Calcium 7.7 L (8.4-10.2) mg/dL Microbiology - Last 24 Hours (Table) 09/02/23 14:46 Blood Culture - Preliminary Blood Assessment and Plan Assessment: Left leg pain, swelling and discoloration secondary to occlusion of the left superficial femoral artery extending from its origin to the popliteal artery. Reconstitution with poor visualization of the anterior posterior tibial arteries. Status post left axillobifemoral bypass grafting September 01, 2023. Will most likely need amputation per vascular surgery Liver mass with biopsy on 08/25/2023 revealing fragments of necrotic cellular material suggestive of necrotic neoplasm, insufficient for diagnosis due to lack of viable tissue Right apical masslike density. Scattered pulmonary nodules mid and lower lung beatty. Patchy basilar infiltrates. Small right effusion. Suspect metastatic disease Recent surgery on 08/04/2023 with left common femoral thromboendarterectomy for occlusive disease. Was on Xarelto History of DVT/PE History of abdominal aortic aneurysm Chronic and ongoing tobacco dependence Anorexia/cachexia syndrome with a BMI of 23.4 kg/m Plan: The patient was seen and evaluated Labs and medications reviewed Remains on cefazolin Plan is for amputation September 06, 2023 The FiO2 as tolerated Assure adequate pain control Prognosis is guarded We will continue to follow I have personally seen and examined the patient, performed the documentation and the assessment and plan as written. Number of minutes spent on the visit: 10.
--- NOTE | 2023-09-04 14:51 | P.PN ---
Subjective Progress Note Date: 09/04/23 Patient is a 73-year-old female with a past medical history of DVT/PE on anticoagulation, peripheral vascular disease with left leg pain status post femoral to femoral bypass and left common femoral thromboendarterectomy on 08/04/2023, history of cholecystectomy on 07/11/2023 presents to ER with complaints of left lower extremity pain swelling and discoloration. Patient has been having chronic pain which has improved during the last 7 to 10 days. Patient does have history of liver mass and her physician is planning to get PET scan as an outpatient.. Patient has not seen oncology before. Otherwise patient denied any complaints of fever or chills. No nausea vomiting. No diarrhea. No cough or sputum production. No chest pain. EKG showed sinus rhythm. CT of the abdomen pelvis showed post femoral-femoral bypass changes with fluid collection around the graft. 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 Similar infrarenal abdominal aortic aneurysm back to at least 01/04/2023. Measuring 3.7 x 4.4 cm. Laboratory data showed WBC 18.8 hemoglobin 7.1, MCV 88.7 and platelets 473 INR 1.6, sodium 130 potassium 5.2 chloride 100 bicarb is 19 BUN 68, creatinine 2.03 and blood sugar 100 Total bili 1.9 AST 89 ALT 43 and alk phos 428 and albumin 2.5 and lipase level 977 08/24/2023 Patient is seen and evaluated in follow-up today being followed by vascular surgery along with oncology and interventional radiology was consulted for possible biopsy. Patient continued on empiric antibiotics with concerns of possible cellulitis of the lower extremities. Patient evaluated by vascular surgery as patient is recent femoropopliteal bypass and left common femoral thromboendarterectomy with no plans of revascularization interventions at this time. Patient okay to resume anticoagulation once cleared by oncology. Will hold on anticoagulation for now as hemoglobin is low and post 1 unit of PRBCs hemoglobin is 7.7 today. Discussing possible biopsy of the liver and will hold on anticoagulation including holding subcutaneous heparin for now. Interventional radiology consulted and pending. Patient with significant weakness would recommend being evaluated by PT/OT therapy. Overall treatment plan discussed with patient and would like to receive treatment if available. W ill discuss further with oncology once biopsy is performed. 08/25/2023 Patient is seen in follow-up today currently n.p.o. scheduled to undergo ultrasound for possible liver biopsy with interventional radiology. Patient maintained on antibiotics as severe and patient is maintained on Dilaudid. Will also add Mcfarland for breakthrough pain as patient reports 10/10 on the pain scale. Vascular surgery evaluated the patient with no plans of revascularization or surgical intervention on that left lower extremity. No contraindication to resume anticoagulation and Xarelto is being resumed. Patient is afebrile with no reports of chest pain or shortness of breath. Patient is currently wearing 2 L although does not normally wear oxygen outpatient. Encouraged oral intake and increased activity as tolerated. Patient to undergo biopsy and awaiting pathology as there is concerns of metastasis from the lungs as well. Overall prognosis is poor and guarded left at this time. 08/26/2023 Patient is resting in the bed. Awake alert and oriented x 3. No complaints of chest pain or shortness of breath. Patient still having left lower extremity discoloration of the toes. Swelling is about the same. Right lower extremity swelling did improve. Patient is s/p liver biopsy. Continued on anticoagulation with Xarelto. Patient is on antibiotics, cefazolin. Laboratory showed WBC 13.4 hemoglobin 7.7 and platelets 217 Sodium 130 potassium 3.5 chloride 101 bicarb is 24 BUN 25 and creatinine 0.93 and blood sugar 103 and calcium 7.8 and magnesium 2.2 08/27/2023 Patient is resting in the bed. Awake alert and oriented x 3. No nausea vomiting abdominal pain or diarrhea. Currently on room air. Still having left lower extremity discoloration of the toes and swelling. Hemoglobin 6.9 this morning and is being transfused with 1 unit of PRBC Other laboratory data showed WBC trending down to 12.8 hemoglobin 6.9 and platelets 218 sodium 134 potassium 4.3 chloride 103 bicarb is 23.5 BUN 19 and creatinine 1.0 and blood sugar 96 and calcium 8.1. Patient is on anticoagulation with Xarelto and also antibiotics cefazolin. Pain is controlled. 08/28/2023 Patient is seen and evaluated in follow-up today with multiple medical consultations following including vascular surgery and oncology. Patient continues to have a white count although is trending down and will follow-up with repeat labs. Patient is status post biopsy of the liver which is pending. Patient continues to report significant pain in the left lower extremity with inability to ambulate and was evaluated by vascular surgery with no plans of revascularization and also discussed with the patient about possible amputation for palliative pain relief as there are no plans or availabilities for further surgical intervention on that left lower extremity. Anticoagulation resumed. Patient remains on cefazolin with concerns of possible cellulitis of the lower extremities. Recommend repeat labs in the a.m. and continued PT/OT therapy 08/29/2023 Patient is seen in follow-up this morning with vascular and oncology following. Patient continues to report significant 10/10 pain of the left lower extremity and repeat CT angiogram being ordered. Patient underwent biopsy of the liver although suggestive of metastatic disease, specimen was insufficient for diagnosis. Oncology discussing looking into CT chest to evaluate the lung nodul es for possible biopsy and/or bronchoscopy. Patient is afebrile, white count remains slightly elevated, no reports of chest pain or shortness of breath and patient is on room air. Patient continues on antibiotics with concerns of lower extremity cellulitis as well. Encouraged to increase activity as tolerated although patient reports unable to stand due to the pain on the left leg. Recommend PT/OT therapy daily. 08/30/2023 Patient is seen and evaluated today with vascular surgery following and patient underwent CT angio runoff with plans for vascular intervention on Monday as the graft on the left is down and patient reports continued significant left leg pain and inability to ambulate or place any weight on it due to the pain. Multiple medications including Dilaudid, Mcfarland, gabapentin have been added with minimal pain relief. Patient also had CT chest with multiple lung nodules noted and oncology following recommending pulmonary consultation for possible bronchoscopy with biopsy for confirmation of diagnosis. Patient maintained on Xarelto and will be placed on hold for surgical intervention for Monday. Patient is afebrile with no reported chest pain or shortness of breath. Patient not eating very much she reports does not have much of an appetite. Patient is getting anxious about overall treatment plan moving forward. Overall prognosis is extremely poor and guarded. Patient remains full code 08/31/2023 Patient is seen in follow-up this morning continues to report severe left lower extremity leg pain with vascular surgery following plans of revascularization and evaluation of the graft on 09/01/[address] Almanza. Patient will be n.p.o. at midnight. Patient was evaluated by pulmonary recommending revascularization prior to bronchoscopy and/or biopsy of the lung nodules. Patient is currently sitting up in the bed on room air and denies any chest pain or shortness of breath. Patient reports is eating and tolerating with no reported nausea or vomiting. 09/01/2023 Patient is seen and evaluated in follow-up this morning currently n.p.o. as patient is scheduled to undergo revascularization intervention with Dr. Almanza this morning. Being taken to the OR currently. Vital signs are stable and we will follow-up and await surgical report. 09/02/2023 Patient is seen in follow-up today on the stepdown unit. Patient underwent left axillary to femoral bypass yesterday secondary to a failed femoral to femoral bypass. Patient was seen in follow-up with vascular surgery today who per patient has discussed possible surgical amputation of the left leg. The left foot today is blackened no pulse noted. Additionally patient's abdomen remains distended. Pulmonary following and recommending bronchoscopy versus thoracentesis for diagnostic measures regarding the right upper lobe mass. Patient is off Xarelto at this time. Her white blood cell count is elevated at 22.9, hemoglobin 9.1., Sodium 132, renal function is stable BUN of 24, creatinine of 0.74. She remains on IV cefazolin. 09/03/2023 Patient is seen in follow-up today on the stepdown unit. She continues to report significant pain to the left lower extremity currently rating it 8 out of 10. She is maintained on a combination of IV Dilaudid every 3 hours, gabapentin, Mcfarland 7.5. Chest x-ray yesterday afternoon shows similar findings of COPD with irregular patchy infiltrates/pneumonia throughout the mid and lower lungs this is a nodular appearance raises the possibility of either concurrent metastatic disease or an atypical fungal mycobacterial infections. A trace right pleural effusion persists. Patient is seen in follow-up today by vascular surgery with recommendations for possible amputation and again patient is in agreements with this. Discussed metastatic liver disease with patient and again patient is wanting to continue with current treatment plan and for treatment even if it is palliative. Patient is not ready for hospice or comfort measures at this time. Plans for biopsy are on hold until patient finishes treatment for the ischemic limb. Patient understanding of this. Patient continues on IV cefazolin. Her blood work is improving white blood cell count down to 17.4, hemoglobin 7.7, sodium 133, BUN of 23, creatinine of 0.90. Magnesium 1.8. 09/04/2023 Patient is followed up today on the medical unit. Patient continues to report significant pain to the left lower extremity mainly of the foot and is rating it a 10 out of 10. She continues on IV and oral pain medication. Patient was reevaluated by vascular surgery recommending to hold the Xarelto at this time and patient is scheduled to undergo right [id number] amputation on September 06, 2023. She remains on oxygen nasal cannula at 4 L. White blood cell count of 19.6 today, hemoglobin 8.5, sodium 133, BUN of 20, creatinine of 0.70, magnesium 1.7. Chest X-ray from a few days ago continues to show a trace right pleural effusion and sodium down to 131 and patient has been continued on IV fluids. Medications reviewed. Review of systems: Constitutional: No reports of fatigue, fever, or chills Cardiovascular: No reports of chest pain or palpitations Respiratory: No reports of shortness of breath or cough GI: No reports of nausea, vomiting, or diarrhea, Reports abdominal pain and distention. : No reports of dysuria or retention Neurovascular: reports of generalized weakness, reports continued left lower extremity pain 8/10 All medications have been reviewed PHYSICAL EXAMINATION: Patient is lying in the bed , elderly appearing, thin built, well-developed, awake alert and oriented.. HEENT: Normocephalic. Neck is supple. Pupils reactive. Nostrils clear. Oral cavity is moist. Neck reveals no JVD, carotid bruits, or thyromegaly. CHEST EXAMINATION: Trachea is central. Symmetrical expansion. Bibasilar diminished sounds. Scattered ronchi. CARDIAC: Normal S1, S2 with no gallops. No murmurs ABDOMEN: Soft. Tender on palpation, bowel sounds normal. Large firm liver noted on the right. No abdominal bruits. Extremities: Bilateral lower extremity swelling with skin dislocation/mottling of the left lower extremity. Neurologically awake, alert, oriented x3. Patient is able to move all extremities.. No focal deficits noted. diffusely weak Skin: No rash or skin lesions. Cyanosis noted on lower extremities as well as upper extremities, more so on the right hand; left foot is discolored and blackened extending up to the ankle. Skin tear on coccyx. Psychiatric: Cooperative. Non-suicidal, anxious. Musculoskeletal: No joint swelling or deformity. Normal range of motion. Assessment: -Bilateral lower extremity pain, swelling with recent history of femorofemoral bypass and left common femoral thromboendarterectomy with graft malfunction, S/P revascularization on September 01 with left axillary to femoral bypass. Patient is now scheduled to undergo left AKA on 09/06/23. -Possible bilateral lower extremity cellulitis, present on admission continues on IV cefazolin, persistent leukocytosis rule out other source of infection. -Acute kidney injury likely prerenal, improved. 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 Patient is scheduled for outpatient PET scan. Status post liver biopsy 08/25/2023, likely metastatic disease although specimen was insufficient for diagnosis -Abdominal aortic aneurysm stable from recent study -Currently everyday smoker -Moderate protein calorie malnutrition with a BMI of 23.4 GI prophylaxis DVT prophylaxis on Xarelto Full code Plan: -Patient is continued on antibiotics in the form of cefazolin for possible underlying cellulitis. White blood cell count remains elevated. Blood cultures are pending. ID has been consulted for review and further recommendations. -Xarelto remains on hold status post revascularization, patient is now scheduled to undergo left AKA on Monday09/06/23. -Oncology following status post biopsy and there was noted necrotic tissue and likely metastatic disease although specimen was insufficient for diagnosis. Oncology is aware and patient underwent CT chest for evaluation with multiple lung nodules and has consulted pulmonary for further evaluation and possible bronchoscopy with biopsy for diagnosis. -Pulmonary has evaluated the patient recommending waiting bronchoscopy with biopsy until left lower extremity revascularization is done -Continue with pain management. Patient continues to report severe pain with Dilaudid and Mcfarland, gabapentin. -PT/OT following patient will require extensive rehabilitation after limb amputation. Overall prognosis remains poor. -Prognosis is extremely poor guarded with multiple medical problems and comorbid conditions. Patient currently remains a full code and would like to receive treatment if there are options available. Discussed with patient and she is not ready for comfort care or hospice measures. Discussed with patient today at the bedside if she wants me to discuss plan of care with family and answer any questions they may have. Patient stated that she didn't want me to talk with her family she felt comfortable relaying the information. -Discontinue IV fluids and check a proBNP if elevated will give a dose of IV lasix. Repeat labs in the AM. The impression and plan of care has been dictated by Marialuisa Montejo, Nurse Practitioner as directed. Dr. Lia MD I have performed a history and physical examination and medical decision making of this patient, discussed the same with the dictator, and agree with the dictators assessment and plan as written, documented as a scribe. Based on total visit time, I have performed more than 50% of this visit. Objective - Vital Signs Vital signs: Vital Signs Temp 97.2 F L 09/04/23 11:54 Pulse 94 09/04/23 11:54 Resp 20 09/04/23 11:54 BP 108/71 09/04/23 11:54 Pulse Ox 94 L 09/04/23 11:54 FiO2 21 08/27/23 20:23 Intake & Output 09/03/23 09/04/23 09/04/23 18:59 06:59 18:59 Intake Total 480 Output Total 1250 800 Balance -770 -800 Intake: Oral 480 Output: Urine 1250 800 Other: Voiding Method Indwelling Catheter Indwelling Catheter Indwelling Catheter # Voids 0 - Labs CBC & Chem 7: 09/04/23 08:38 09/04/23 08:38 Labs: Abnormal Lab Results - Last 24 Hours (Table) 09/04/23 09/04/23 Range/Units 08:38 08:38 WBC 19.6 H (3.8-10.6) k/uL RBC 2.95 L (3.80-5.40) m/uL Hgb 8.5 L (11.4-16.0) gm/dL Hct 28.5 L (34.0-46.0) % MCHC 29.9 L (31.0-37.0) g/dL RDW 19.3 H (11.5-15.5) % Neutrophils # 18.3 H (1.3-7.7) k/uL Lymphocytes # 0.6 L (1.0-4.8) k/uL Sodium 131 L (137-145) mmol/L BUN 20 H (7-17) mg/dL Calcium 7.7 L (8.4-10.2) mg/dL Microbiology - Last 24 Hours (Table) 09/02/23 14:46 Blood Culture - Preliminary Blood Assessment and Plan Time with Patient: Less than 30
[2023-09-04] MEDS: GABAPENTIN 300 MG CAP PO SCH (15:42)
[2023-09-04] MEDS ORDERED: VANCOMYCIN IV PER PHARMACY 1 EACH MISC MISCELLANE PRN (22:41)
--- NOTE | 2023-09-04 22:41 | P.CONS ---
History of Present Illness - Reason for Consult Consult date: 09/04/23 Persistent leukocytosis Requesting physician: Marialuisa Montejo - Chief Complaint Left leg pain x days - History of Present Illness Patient is a 73-year-old female with a past medical history significant for COPD DVT pneumonia PE patient patient has been in the hospital for more than 2 weeks now with initial presentation with the leg pain and also have swelling and discoloration to the left foot in this patient who did have thumb bypass with CryoVein and left common femoral thromboendarterectomy completed on 08/04/2023 with persistent ischemia in this patient who is status post left axillary to femoral bypass completed on 09/01/2023 patient did have persistent pain to the left lower extremity with ischemic changes to the left foot and discoloration patient has been afebrile throughout her hospital stay however patient noticed to have elevated white count mostly throughout her hospital stay with a white count of 19.6 today infectious disease was consulted today regarding her elevated white count although the patient has been in the hospital for 2 weeks patient has been complaining of mostly pain to the left lower extremity especially to the left foot area describing it to be throbbing to sharp moderate to severe intensity without any radiation patient denies any headache or URI symptoms denies any chest pain or shortness of breath she did have some cough not bring up any sputum nausea but no vomiting no abdominal pain and no diarrhea. With elevated white count of 19.6 creatinine has been normal and the patient did have blood culture on 09/02/2023 those has been negative chest x-ray similar findings of COPD with irregular and patchy infiltrates pneumonia throughout the mid and lower lungs Review of Systems Positive point and negatives has been mentioned in the HPI, complete review of systems was performed and all other systems are negative Past Medical History Past Medical History: Cancer, COPD, Deep Vein Thrombosis (DVT), Eye Disorder, Pneumonia, Pulmonary Embolus (PE), Vascular Disorder Additional Past Medical History / Comment(s): DVT L leg, pulmonary embolism R lung, cyst between lung and spine being monitored, bronchitis, abdominal aortic aneurysm being monitored (pt does not recall size), PVD, urterine cancer with hysterectomy, beginnings of cataracts, shingelles in 1996. History of Any Multi-Drug Resistant Organisms: None Reported Past Surgical History: Back Surgery, Hysterectomy, Orthopedic Surgery, Tonsillectomy Additional Past Surgical History / Comment(s): Ectopic with salpingectomy/ovary removed then hysterectomy d/t cancer and has part of one ovary left, kyphoplasty, R shoulder fracture with surgery/screws in place, right hip replacement Past Anesthesia/Blood Transfusion Reactions: No Reported Reaction Additional Past Anesthesia/Blood Transfusion Reaction / Comm: Pt believes she may have received blood years ago with ectopic . Past Psychological History: No Psychological Hx Reported Additional Psychological History / Comment(s): Pt resides alone in Senior Housing. She is independent. Smoking Status: Current every day smoker Past Alcohol Use History: None Reported Additional Past Alcohol Use History / Comment(s): Pt started smoking in 1965 and was a 2 ppd smoker. Last September 2016 she started cutting back and is now down to 2 cigarettes a day to week. Past Drug Use History: None Reported Additional Drug Use History / Comment(s): None - Past Family History Mother Family Medical History: Dementia, Hypertension Additional Family Medical History / Comment(s): ALZHEIMERS Father Family Medical History: Myocardial Infarction ([place]) Additional Family Medical History / Comment(s): AT AGE 59 FROM [place] Brother(s) Family Medical History: Myocardial Infarction ([place]) Additional Family Medical History / Comment(s): ALSO AT AGE 59 FROM [place] AND A 2ND BROTHER W/VASCULAR DISEASE. Sister(s) Family Medical History: Cancer Additional Family Medical History / Comment(s): LUNG CANCER(SMOKER) Medications and Allergies Home Medications Medication Instructions Recorded Confirmed Type Albuterol Inhaler [Ventolin Hfa 2 puff INHALATION RT-Q4H PRN 09/28/17 08/22/23 History Inhaler] Atorvastatin Calcium [Lipitor] 40 mg PO HS 07/11/23 08/22/23 History Calcium Carbonate/Vitamin D3 1 tab PO DAILY 07/11/23 08/22/23 History [Calcium 600-Vit D3 10 mcg (400 Iu)] Co Q10 100 mg PO DAILY 07/11/23 08/22/23 History Fluticasone/Umeclidin/Vilanter 1 puff INHALATION RT-DAILY 07/11/23 08/22/23 History [Trelegy Ellipta 100-62.5-25] Rivaroxaban [Xarelto] 20 mg PO DAILY@1500 08/22/23 08/22/23 History Allergies Allergy/AdvReac Type Severity Reaction Status Date / Time No Known Allergies Allergy Verified 09/08/23 11:49 Physical Exam Vitals: Vital Signs Temp Pulse Pulse Pulse Resp BP BP 09/04/23 20:11 84 09/04/23 19:58 80 09/04/23 16:00 97.3 F L 96 20 101/64 09/04/23 15:49 88 09/04/23 15:43 90 09/04/23 11:54 97.2 F L 94 20 108/71 09/04/23 09:08 76 09/04/23 08:54 74 09/04/23 08:00 98.1 F 111 H 20 146/84 09/04/23 04:00 98 F 71 18 112/60 09/04/23 01:36 80 16 09/04/23 00:00 80 16 104/56 Pulse Ox 09/04/23 20:11 09/04/23 19:58 09/04/23 16:00 96 09/04/23 15:49 09/04/23 15:43 09/04/23 11:54 94 L 09/04/23 09:08 09/04/23 08:54 09/04/23 08:00 91 L 09/04/23 04:00 94 L 09/04/23 01:36 09/04/23 00:00 Intake and Output 09/04/23 09/04/23 09/04/23 06:59 14:59 22:59 Intake Total 720 960 Output Total 800 675 Balance -800 720 285 Intake: Intake, IV Titration 600 Amount Magnesium Sulfate-D5w Pmx 100 1 gm In Dextrose/Water 1 100ml.bag @ 100 mls/hr IVPB ONCE ONE Rx#: [id number] Sodium Chloride 0.9% 500 400 ml 1,000 ml @ 0 mls/hr IV .STK-MED ONE with Heparin Sodium,Porcine (1 ml) 10,000 unit Rx#: [id number] ceFAZolin 2 gm In Sodium 100 Chloride 0.9% 50 ml @ 100 mls/hr IVPB Q8HR [facility] Rx# :[id number] Oral 720 360 Output: Urine 800 675 Other: Voiding Method Indwelling Catheter Indwelling Catheter GENERAL DESCRIPTION: Elderly female lying in bed, no distress. No tachypnea or accessory muscle of respiration use. HEENT: Shows Pallor , no scleral icterus. Oral mucous membrane is dry. No pharyngeal erythema or thrush NECK: Trachea central, no thyromegaly. LUNGS: Unlabored breathing. Coarse breath sounds bilaterally HEART: S1, S2, regular rate and rhythm. No loud murmur ABDOMEN: Soft, no tenderness , guarding or rigidity, no organomegaly EXTREMITIES: Left foot did have ischemic changes which is cold to touch and tender SKIN: No rash, no masses palpable. NEUROLOGICAL: The patient is awake, alert, oriented x3, mood and affect normal. Results CBC & Chem 7: 09/09/23 08:14 09/09/23 08:14 Labs: Abnormal Lab Results - Last 24 Hours (Table) 09/04/23 09/04/23 Range/Units 08:38 08:38 WBC 19.6 H (3.8-10.6) k/uL RBC 2.95 L (3.80-5.40) m/uL Hgb 8.5 L (11.4-16.0) gm/dL Hct 28.5 L (34.0-46.0) % MCHC 29.9 L (31.0-37.0) g/dL RDW 19.3 H (11.5-15.5) % Neutrophils # 18.3 H (1.3-7.7) k/uL Lymphocytes # 0.6 L (1.0-4.8) k/uL Sodium 131 L (137-145) mmol/L BUN 20 H (7-17) mg/dL Calcium 7.7 L (8.4-10.2) mg/dL Microbiology - Last 24 Hours (Table) 09/02/23 14:46 Blood Culture - Preliminary Blood Assessment and Plan (1) Leukocytosis Status: Acute Code(s): D72.829 - ELEVATED WHITE BLOOD CELL COUNT, UNSPECIFIED SNOMED Code(s): 661939206 Plan: 1patient with elevated white count and this patient presented to the hospital with the left lower extremity pain patient did have a bypass surgery to the left lower extremity x 2 with the last procedure being on 09/01/2023 for left axillary femoral bypass graft patient did have persistent ischemia to the left lower extremity and pain and is being considered for amputation with elevated white count could be related to underlying ischemia and necrosis to the left foot however the patient also have a cough and is bringing some sputum possible component of pneumonia not entirely excluded less likely though 2-we will check inflammatory markers and check a sputum for Gram stain and culture 3-discontinue cefazolin 4-start the patient on cefepime and vancomycin while awaiting further workup to be completed Multiple family members at bedside questions were answered We will follow on clinical condition and cultures to further adjust medication if needed Thank you for this consultation we will follow the patient along with you Dictation was produced using [employer] dictation software. please excuse any grammatical, word or spelling errors. Time with Patient: Greater than 30
[2023-09-04] MEDS: CEFEPIME 2 GM in SODIUM CHLORIDE 0.9% 100 ML IVPB SCH (22:55)
[2023-09-04] MEDS: VANCOMYCIN 1,000 MG in SODIUM CHLORIDE 0.9% 250 ML IVPB ONE (23:02)
[2023-09-05 09:15] LABS: Anisocytosis Slight; Basophils % (A) 0 %; Eosinophils % (A) 0 %; HCT 29.5 % (34.0-46.0); HGB 8.9 gm/dL (11.4-16.0); Hypochromasia Marked; Lymphocytes # (A) 0.5 k/uL (1.0-4.8); Lymphocytes % (A) 3 %; MCH 29.1 pg (25.0-35.0); MCV 97.2 fL (80.0-100.0); Macrocytosis Slight; Mean Platelet Volume 9.3; Monocytes # (A) 0.5 k/uL (0-1.0); Monocytes % (A) 3 %; Neutrophils # (A) 19.9 k/uL (1.3-7.7); Neutrophils % (A) 94 %; Platelet Count 237 k/uL (150-450); RBC 3.04 m/uL (3.80-5.40); RDW 19.3 % (11.5-15.5); WBC 21.2 k/uL (3.8-10.6)
[2023-09-05 09:35] LABS: ALT 11 U/L (4-34); AST 53 U/L (14-36); African American GFR (CKD) >90 (>60 ml/min/1.73 sqM); Albumin 1.6 g/dL (3.5-5.0); Alkaline Phosphatase 423 U/L (38-126); Anion Gap 4 mmol/L; Blood Urea Nitrogen 20 mg/dL (7-17); Calcium 7.8 mg/dL (8.4-10.2); Carbon Dioxide 22 mmol/L (22-30); Chloride 106 mmol/L (98-107); Glucose 109 mg/dL (74-99); Magnesium 1.9 mg/dL (1.6-2.3); Non-African American GFR(CKD) 86 (>60 ml/min/1.73 sqM); Potassium 3.7 mmol/L (3.5-5.1); Sodium 132 mmol/L (137-145); Total Bilirubin 0.7 mg/dL (0.2-1.3); Total Protein 4.1 g/dL (6.3-8.2)
[2023-09-05 11:18] LABS: C Reactive Protein 33.6 mg/dL (<1.0)
--- NOTE | 2023-09-05 12:39 | XR ---
EXAMINATION TYPE: XR chest 1V DATE OF EXAM: 09/05/2023 COMPARISON: 09/02/2023 HISTORY: 73-year-old female shortness of breath, dyspnea TECHNIQUE: Single frontal view of the chest is obtained. FINDINGS: Right IJ CVC tip at the mid to lower SVC. Heart normal size. Hyperinflation with prominent upper lung lucencies. Nodular density redemonstrated at the left midlung. Increasing prominent patch y bibasilar opacities, right greater than left. Trace right pleural effusion has developed. IMPRESSION: 1. COPD with slight worsening right greater than left bibasilar opacities. 2. Bilateral areas of nodularity redemonstrated compatible with findings seen on CT chest 08/29/2023. C orrelate for metastatic disease versus atypical fungal/mycobacterial infections.
--- NOTE | 2023-09-05 13:05 | P.PN ---
Subjective Progress Note Date: 09/05/23 Principal diagnosis: Peripheral arterial disease Patient seen and examined as a follow-up. No acute changes through the night. Continues to have elevated white count. Continues to have pain in the left lower extremity. Chest x-ray reported COPD with slight worsening right greater than left bibasilar opacities. Bilateral areas of nodularity redemonstrated compatible with findings seen on CT chest. Correlate for metastatic disease versus atypical fungal/mycobacterial infections. Objective - Vital Signs Vital signs: Vital Signs Temp 98.7 F 09/05/23 12:00 Pulse 111 H 09/05/23 12:00 Resp 22 09/05/23 12:00 BP 125/59 09/05/23 12:00 Pulse Ox 94 L 09/05/23 12:00 FiO2 21 08/27/23 20:23 Intake & Output 09/04/23 09/05/23 09/05/23 18:59 06:59 18:59 Intake Total 1680 550 240 Output Total 675 Balance 1005 550 240 Intake: Intake, IV Titration 600 Amount Magnesium Sulfate-D5w Pmx 100 1 gm In Dextrose/Water 1 100ml.bag @ 100 mls/hr IVPB ONCE ONE Rx#: [id number] Sodium Chloride 0.9% 500 400 ml 1,000 ml @ 0 mls/hr IV .STK-MED ONE with Heparin Sodium,Porcine (1 ml) 10,000 unit Rx#: [id number] ceFAZolin 2 gm In Sodium 100 Chloride 0.9% 50 ml @ 100 mls/hr IVPB Q8HR [facility] Rx# :[id number] Oral 1080 240 Tube Feeding 550 Output: Urine 675 Other: Voiding Method Indwelling Catheter Indwelling Catheter Indwelling Catheter - Exam General appearance: The patient is alert, oriented, appears in no acute distress. HET: Head is normocephalic and atraumatic. Pupils are equal and reactive. Neck: Supple. Heart: Regular. Lungs: Equal expansion, normal respiratory effort. Abdomen: Hepatomegaly, tenderness. Extremities: Left axillary incision is well-approximated. Bilateral lower extremity swelling with weeping, dressings intact. Left toes purple, mottled, cold. Incisions clean dry and intact. Neurological: No focal deficits. - Labs CBC & Chem 7: 09/05/23 08:46 09/05/23 08:46 Labs: Abnormal Lab Results - Last 24 Hours (Table) 09/05/23 09/05/23 Range/Units 08:46 08:46 WBC 21.2 H (3.8-10.6) k/uL RBC 3.04 L (3.80-5.40) m/uL Hgb 8.9 L (11.4-16.0) gm/dL Hct 29.5 L (34.0-46.0) % MCHC 30.0 L (31.0-37.0) g/dL RDW 19.3 H (11.5-15.5) % Neutrophils # 19.9 H (1.3-7.7) k/uL Lymphocytes # 0.5 L (1.0-4.8) k/uL Sodium 132 L (137-145) mmol/L BUN 20 H (7-17) mg/dL Glucose 109 H (74-99) mg/dL Calcium 7.8 L (8.4-10.2) mg/dL AST 53 H (14-36) U/L Alkaline Phosphatase 423 H (38-126) U/L C-Reactive Protein 33.6 H (<1.0) mg/dL Total Protein 4.1 L (6.3-8.2) g/dL Albumin 1.6 L (3.5-5.0) g/dL Microbiology - Last 24 Hours (Table) 09/02/23 14:46 Blood Culture - Preliminary Blood Assessment and Plan Assessment: 1. 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 Left lower extremity pain 3. Large liver mass with metastatic disease throughout the lungs 4. Acute kidney injury 5. History of DVT and pulmonary embolism Plan: 1. Hold Xarelto 2. Continue pain management. Gabapentin added for pain management 3. Continue with recommendations from oncology 4. Patient is status post left axillary to femoral bypass 5. Plan for left ehsgp-dcy-bild amputation 09/06/2023 6. N.p.o. after midnight Thank you for this consultation, we will continue to follow. The impression and plan of care has been dictated as directed. Dr. Benjamin I performed a history and examination of this patient, discussed the same with the dictator. I agree with the dictator's note ,documented as a scribe. Any additional findings or plans will be noted.
--- NOTE | 2023-09-05 13:09 | P.PN ---
Subjective Progress Note Date: 09/05/23 Principal diagnosis: Acute kidney injury. This is a 73-year-old female patient with a known history of pulmonary embolism, DVT of the left leg, uterine cancer with previous hysterectomy, chronic obstructive pulmonary disease with chronic and ongoing tobacco dependence. She had presented here to the emergency room back on August 22, 2023 with complaints of left leg pain. She has had chronic pain and had previously had surgery 2 weeks prior to her arrival here. She also was known to have suspected liver cancer with metastasis and was waiting on an outpatient PET scan. CT scan of the abdomen did reveal a post femoral-femoral bypass changes with fluid collection around the graft. There is a large hepatic mass with metastatic disease throughout the lungs. Similar infrarenal abdominal aortic aneurysm from previous scan in December 2022. She did have a liver biopsy here on August 25, 2023 that revealed necrotic cellular material suggestive of necrotic neoplasm but insufficient for diagnosis due to lack of viable tissue. We were consulted today for possible lung biopsy. 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 Her Xarelto is on hold and they are planning for axillofemoral bypass grafting on 09/01/2023. She is seen today in consultation on the regular medical floor. She is currently sitting up in bed. She is having quite a bit of musculoskeletal pain. She is also having quite a bit of left lower extremity pain. She is maintaining O2 saturations in the 90s on room air. She is afebrile. Hemodynamically stable. She denies any worsening shortness of breath, cough or congestion. No hemoptysis. The patient is seen today August 31, 2023 in follow-up on the regular medical floor. She is currently sitting up in bed having breakfast. Awake and alert in no acute distress. Maintaining O2 saturations in the 90s on room air. Ultrasound of the chest revealed small bilateral pleural effusions with 2.8 cm fluid on the right and 1.9 cm on the left. Not marked for thoracentesis. She is status post 2 units of packed red blood cells this admission. Current hemoglobin 8.0. Platelets 227. White count 14.2. Sodium 134. Potassium 4.0. Bicarb 24. BUN 17. Creatinine 0.7. Glucose 80. She remains on cefazolin. Normal saline at 50 MLS per hour. The patient is seen today September 01, 2023 in follow-up on the regular medical floor. She is currently resting in bed. Awake and alert in no acute distress. Maintaining O2 saturations in the mid 90s on room air. She is afebrile. Hemodynamically stable. Planning for an axillobifemoral bypass today with vascular surgery. She is status post 2 units of packed red blood cells this a dmission. Current hemoglobin 8.3. Platelets 193. White count 16.6. Sodium 131. Potassium 4.5. Bicarb 22. BUN 22. Creatinine 0.64. Glucose 88. Remains on cefazolin. Continued on bronchodilators. The patient is seen today September 02, 2023 in follow-up on the right on the selective care unit. She is awake and alert in no acute distress. She did undergo a left axillary to femoral bypass grafting yesterday. Her left lower extremity still quite discolored. Still having pain. Pulse is absent. She is status post 3 units of packed red blood cells this admission. Current hemoglobin 9.1. Platelets 186. White count 22.9. Sodium 132. Potassium 3.9. Bicarb 18. BUN 24. Creatinine 0.74. Glucose 71. She is currently maintaining good O2 saturations in the 90s on 4 L/min per nasal cannula. Afebrile. Hemodynamically stable. She is continued on cefazolin. The patient is seen today September 03, 2023 in follow-up on the selective care unit. She is currently resting in bed. Awake and alert in no acute distress. Still with significant left lower extremity pain. No pedal or posterior tibial pulses palpable. Leg remains very discolored cool to touch and mottled. She denies any worsening shortness of breath, cough or congestion. Chest x-ray continues to show evidence of COPD with irregular and patchy infiltrate/pneumonia throughout the mid and lower lungs. Nodular appearances raises the possibility of metastatic disease. She is status post 3 units of packed red blood cells this admission. Current hemoglobin 7.7. Platelets 160. White count 17.4. Sodium 133. Potassium 3.9. Bicarb 23. BUN 23. Creatinine 0.90. She is continued on bronchodilators. Remains on cefazolin. Dilaudid and [place] for pain control. The patient is seen today September 04, 2023 in follow-up on the selective care unit. She is currently resting in bed. Awake and alert in no acute distress. Still having discomfort in the left lower extremity. He is currently maintaining O2 saturations in the 90s on 4 L/min per nasal cannula. She is afebrile. Hemodynamically stable. White count 19.6. Hemoglobin 8.5. Platelets 198. Sodium 131. Potassium 4.1. Bicarb 24. BUN 20. Creatinine 0.70. Glucose 87. She remains on cefazolin. Heparin for DVT prophylaxis. Continued on bronchodilators. Pain medication in the form of Dilaudid and [place]. Progress note dated September 05, 2023. 73-year-old female seen today in room 379. The patient is going for surgery, on the left lower extremity, tomorrow. Currently, the patient is on 3 L of oxygen by nasal cannula. She continues on vancomycin, and cefepime. Current laboratory data includes a white count of 21.2, hemoglobin 8.9, hematocrit 29.5, and a platelet count of 237,000. Sodium 132, potassium 3.7, chlorides 106, CO2 22, BUN 20, creatinine 0.71. Glucose is 109. AST is 53. Alkaline phosphatase is 423. C-reactive protein is 33.6. N-terminal proBNP is 1440. Albumin is 1.6. X-rays consistent with COPD, and slight worsening of the infiltrates, in the right greater than left basilar areas. Objective - Vital Signs Vital signs: Vital Signs Temp 98.7 F 09/05/23 12:00 Pulse 111 H 09/05/23 12:00 Resp 22 09/05/23 12:00 BP 125/59 09/05/23 12:00 Pulse Ox 94 L 09/05/23 12:00 FiO2 21 08/27/23 20:23 Intake & Output 09/04/23 09/05/23 09/05/23 18:59 06:59 18:59 Intake Total 1680 550 240 Output Total 675 Balance 1005 550 240 Intake: Intake, IV Titration 600 Amount Magnesium Sulfate-D5w Pmx 100 1 gm In Dextrose/Water 1 100ml.bag @ 100 mls/hr IVPB ONCE ONE Rx#: [id number] Sodium Chloride 0.9% 500 400 ml 1,000 ml @ 0 mls/hr IV .STK-MED ONE with Heparin Sodium,Porcine (1 ml) 10,000 unit Rx#: [id number] ceFAZolin 2 gm In Sodium 100 Chloride 0.9% 50 ml @ 100 mls/hr IVPB Q8HR [facility] Rx# :[id number] Oral 1080 240 Tube Feeding 550 Output: Urine 675 Other: Voiding Method Indwelling Catheter Indwelling Catheter Indwelling Catheter - Exam No acute distress, oriented 3. Patient is currently on 3 L of oxygen by nasal cannula. HEENT examination is grossly unremarkable. Mucous membranes are moist. No oral lesions. Neck supple. Full range of motion. No adenopathy thyromegaly or neck vein distention. Cardiovascular examination reveals regular rhythm rate. S1-S2 normal. No S3 or S4. No discernible murmur noted. Heart sounds are distant. Heart rate 111 bpm. Lungs reveal clear breath sounds. Breath sounds are equal bilaterally. No adventitious lung sounds including wheezes rhonchi or crackles. Saturations are 94% on 3 L. Abdomen soft bowel sounds are heard. No masses or tenderness. Extremities are intact. Bilateral lower extremity edema, left greater than right, with multiple areas of ecchymoses.. Skin reveals lower extremity ecchymoses. Neurologic examination is brief but nonfocal. - Labs CBC & Chem 7: 09/05/23 08:46 09/05/23 08:46 Labs: Abnormal Lab Results - Last 24 Hours (Table) 09/05/23 09/05/23 Range/Units 08:46 08:46 WBC 21.2 H (3.8-10.6) k/uL RBC 3.04 L (3.80-5.40) m/uL Hgb 8.9 L (11.4-16.0) gm/dL Hct 29.5 L (34.0-46.0) % MCHC 30.0 L (31.0-37.0) g/dL RDW 19.3 H (11.5-15.5) % Neutrophils # 19.9 H (1.3-7.7) k/uL Lymphocytes # 0.5 L (1.0-4.8) k/uL Sodium 132 L (137-145) mmol/L BUN 20 H (7-17) mg/dL Glucose 109 H (74-99) mg/dL Calcium 7.8 L (8.4-10.2) mg/dL AST 53 H (14-36) U/L Alkaline Phosphatase 423 H (38-126) U/L C-Reactive Protein 33.6 H (<1.0) mg/dL Total Protein 4.1 L (6.3-8.2) g/dL Albumin 1.6 L (3.5-5.0) g/dL Microbiology - Last 24 Hours (Table) 09/02/23 14:46 Blood Culture - Preliminary Blood Assessment and Plan Assessment: Left leg pain, swelling and discoloration secondary to occlusion of the left superficial femoral artery extending from its origin to the popliteal artery. Reconstitution with poor visualization of the anterior posterior tibial arteries. Status post left axillobifemoral bypass grafting September 01, 2023. Will most likely need amputation per vascular surgery. Liver mass with biopsy on 08/25/2023 revealing fragments of necrotic cellular ma terial suggestive of necrotic neoplasm, insufficient for diagnosis due to lack of viable tissue. Right apical masslike density. Scattered pulmonary nodules mid and lower lung beatty. Patchy basilar infiltrates. Small right effusion. Suspect metastatic disease. Recent surgery on 08/04/2023 with left common femoral thromboendarterectomy for occlusive disease. History of DVT/PE. History of abdominal aortic aneurysm. Chronic and ongoing tobacco dependence. Anorexia/cachexia syndrome with a BMI of 23.4 kg/m. Plan: Plan dated September 05, 2023. The patient is anticipated to have a left lower extremity amputation tomorrow, September 06, 2023. Labs, x-rays, medications are reviewed. The patient remains on antibiotics in the form of vancomycin and cefepime. The patient continues on oxygen at 3 L. The patient is not receiving any IV fluids at this time. We will continue to follow the patient, make recommendations along the way. Prognosis is guarded. Time with Patient: Less than 30
[2023-09-05] MEDS: VANCOMYCIN 1,000 MG in SODIUM CHLORIDE 0.9% 250 ML IVPB SCH (14:50)
[2023-09-05] MEDS: FUROSEMIDE 10 MG/ML 4 ML VIAL IV STA (14:50)
--- NOTE | 2023-09-05 15:44 | P.PN ---
Subjective Progress Note Date: 09/05/23 Principal diagnosis: Reason for follow-up is leukocytosis Patient is a 73-year-old female with a past medical history significant for COPD DVT pneumonia PE patient patient initial presentation with the leg pain and also have swelling and discoloration to the left foot status post bypass and did have a persistent elevated white count prompted this consultation. On today's visit that is 09/05/2023, the patient continues to be afebrile, the patient is on 3 L cannula oxygen and breathing comfortably, the Pt denies having any chest pain or significant cough or sputum production, the patient denies having any abdominal pain no vomiting or any diarrhea has been reported by the nursing staff, still complaining of pain and discomfort to the left lower extremity. Patient white count is 21.2 creatinine 0.71 CRP 33.6 procalcitonin is pending Objective - Vital Signs Vital signs: Vital Signs Temp 98.8 F 09/05/23 04:00 Pulse 108 H 09/05/23 09:20 Resp 18 09/05/23 04:00 BP 99/58 09/05/23 04:00 Pulse Ox 93 L 09/05/23 08:58 FiO2 21 08/27/23 20:23 Intake & Output 09/04/23 09/05/23 09/05/23 18:59 06:59 18:59 Intake Total 1680 550 Output Total 675 Balance 1005 550 Intake: Intake, IV Titration 600 Amount Magnesium Sulfate-D5w Pmx 100 1 gm In Dextrose/Water 1 100ml.bag @ 100 mls/hr IVPB ONCE ONE Rx#: [id number] Sodium Chloride 0.9% 500 400 ml 1,000 ml @ 0 mls/hr IV .STK-MED ONE with Heparin Sodium,Porcine (1 ml) 10,000 unit Rx#: [id number] ceFAZolin 2 gm In Sodium 100 Chloride 0.9% 50 ml @ 100 mls/hr IVPB Q8HR [facility] Rx# :[id number] Oral 1080 Tube Feeding 550 Output: Urine 675 Other: Voiding Method Indwelling Catheter Indwelling Catheter - Exam GENERAL DESCRIPTION: An elderly female lying in bed in no distress RESPIRATORY SYSTEM: Unlabored breathing , coarse breath sounds anteriorly HEART: S1 S2 regular rate and rhythm , ABDOMEN: Soft , no tenderness EXTREMITIES: Left foot discoloration and swelling foul-smelling drainage - Labs CBC & Chem 7: 09/05/23 08:46 09/05/23 08:46 Labs: Abnormal Lab Results - Last 24 Hours (Table) 09/05/23 09/05/23 Range/Units 08:46 08:46 WBC 21.2 H (3.8-10.6) k/uL RBC 3.04 L (3.80-5.40) m/uL Hgb 8.9 L (11.4-16.0) gm/dL Hct 29.5 L (34.0-46.0) % MCHC 30.0 L (31.0-37.0) g/dL RDW 19.3 H (11.5-15.5) % Neutrophils # 19.9 H (1.3-7.7) k/uL Lymphocytes # 0.5 L (1.0-4.8) k/uL Sodium 132 L (137-145) mmol/L BUN 20 H (7-17) mg/dL Glucose 109 H (74-99) mg/dL Calcium 7.8 L (8.4-10.2) mg/dL AST 53 H (14-36) U/L Alkaline Phosphatase 423 H (38-126) U/L C-Reactive Protein 33.6 H (<1.0) mg/dL Total Protein 4.1 L (6.3-8.2) g/dL Albumin 1.6 L (3.5-5.0) g/dL Microbiology - Last 24 Hours (Table) 09/02/23 14:46 Blood Culture - Preliminary Blood Assessment and Plan (1) Leukocytosis Current Visit: Yes Status: Acute Code(s): D72.829 - ELEVATED WHITE BLOOD CELL COUNT, UNSPECIFIED SNOMED Code(s): 627663371 Plan: 1patient with elevated white count and this patient presented to the hospital with the left lower extremity pain patient did have a bypass surgery to the left lower extremity x 2 with the last procedure being on 09/01/2023 for left axillary femoral bypass graft patient did have persistent ischemia to the left lower extremity and pain and is being considered for amputation with elevated white count could be related to underlying ischemia and necrosis to the left foot however the patient also have a cough and is bringing some sputum possible component of pneumonia not entirely excluded less likely though 2-patient did have elevated CRP procalcitonin is pending sputum not collected 3- patient to continue with cefepime and vancomycin while awaiting further workup to be completed Question concern answered Dictation was produced using [employer] dictation software. please excuse any grammatical, word or spelling errors. Time with Patient: Less than 30
[2023-09-05 16:26] LABS: Glucose,Whole Blood 110 mg/dL (70-110)
--- NOTE | 2023-09-05 16:35 | P.PN ---
Subjective Progress Note Date: 09/05/23 Patient is a 73-year-old female with a past medical history of DVT/PE on anticoagulation, peripheral vascular disease with left leg pain status post femoral to femoral bypass and left common femoral thromboendarterectomy on 08/04/2023, history of cholecystectomy on 07/11/2023 presents to ER with complaints of left lower extremity pain swelling and discoloration. Patient has been having chronic pain which has improved during the last 7 to 10 days. Patient does have history of liver mass and her physician is planning to get PET scan as an outpatient.. Patient has not seen oncology before. Otherwise patient denied any complaints of fever or chills. No nausea vomiting. No diarrhea. No cough or sputum production. No chest pain. EKG showed sinus rhythm. CT of the abdomen pelvis showed post femoral-femoral bypass changes with fluid collection around the graft. 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 Similar infrarenal abdominal aortic aneurysm back to at least 01/04/2023. Measuring 3.7 x 4.4 cm. Laboratory data showed WBC 18.8 hemoglobin 7.1, MCV 88.7 and platelets 473 INR 1.6, sodium 130 potassium 5.2 chloride 100 bicarb is 19 BUN 68, creatinine 2.03 and blood sugar 100 Total bili 1.9 AST 89 ALT 43 and alk phos 428 and albumin 2.5 and lipase level 977 08/24/2023 Patient is seen and evaluated in follow-up today being followed by vascular surgery along with oncology and interventional radiology was consulted for possible biopsy. Patient continued on empiric antibiotics with concerns of possible cellulitis of the lower extremities. Patient evaluated by vascular surgery as patient is recent femoropopliteal bypass and left common femoral thromboendarterectomy with no plans of revascularization interventions at this time. Patient okay to resume anticoagulation once cleared by oncology. Will hold on anticoagulation for now as hemoglobin is low and post 1 unit of PRBCs hemoglobin is 7.7 today. Discussing possible biopsy of the liver and will hold on anticoagulation including holding subcutaneous heparin for now. Interventional radiology consulted and pending. Patient with significant weakness would recommend being evaluated by PT/OT therapy. Overall treatment plan discussed with patient and would like to receive treatment if available. W ill discuss further with oncology once biopsy is performed. 08/25/2023 Patient is seen in follow-up today currently n.p.o. scheduled to undergo ultrasound for possible liver biopsy with interventional radiology. Patient maintained on antibiotics as severe and patient is maintained on Dilaudid. Will also add [place] for breakthrough pain as patient reports 10/10 on the pain scale. Vascular surgery evaluated the patient with no plans of revascularization or surgical intervention on that left lower extremity. No contraindication to resume anticoagulation and Xarelto is being resumed. Patient is afebrile with no reports of chest pain or shortness of breath. Patient is currently wearing 2 L although does not normally wear oxygen outpatient. Encouraged oral intake and increased activity as tolerated. Patient to undergo biopsy and awaiting pathology as there is concerns of metastasis from the lungs as well. Overall prognosis is poor and guarded left at this time. 08/26/2023 Patient is resting in the bed. Awake alert and oriented x 3. No complaints of chest pain or shortness of breath. Patient still having left lower extremity discoloration of the toes. Swelling is about the same. Right lower extremity swelling did improve. Patient is s/p liver biopsy. Continued on anticoagulation with Xarelto. Patient is on antibiotics, cefazolin. Laboratory showed WBC 13.4 hemoglobin 7.7 and platelets 217 Sodium 130 potassium 3.5 chloride 101 bicarb is 24 BUN 25 and creatinine 0.93 and blood sugar 103 and calcium 7.8 and magnesium 2.2 08/27/2023 Patient is resting in the bed. Awake alert and oriented x 3. No nausea vomiting abdominal pain or diarrhea. Currently on room air. Still having left lower extremity discoloration of the toes and swelling. Hemoglobin 6.9 this morning and is being transfused with 1 unit of PRBC Other laboratory data showed WBC trending down to 12.8 hemoglobin 6.9 and platelets 218 sodium 134 potassium 4.3 chloride 103 bicarb is 23.5 BUN 19 and creatinine 1.0 and blood sugar 96 and calcium 8.1. Patient is on anticoagulation with Xarelto and also antibiotics cefazolin. Pain is controlled. 08/28/2023 Patient is seen and evaluated in follow-up today with multiple medical consultations following including vascular surgery and oncology. Patient continues to have a white count although is trending down and will follow-up with repeat labs. Patient is status post biopsy of the liver which is pending. Patient continues to report significant pain in the left lower extremity with inability to ambulate and was evaluated by vascular surgery with no plans of revascularization and also discussed with the patient about possible amputation for palliative pain relief as there are no plans or availabilities for further surgical intervention on that left lower extremity. Anticoagulation resumed. Patient remains on cefazolin with concerns of possible cellulitis of the lower extremities. Recommend repeat labs in the a.m. and continued PT/OT therapy 08/29/2023 Patient is seen in follow-up this morning with vascular and oncology following. Patient continues to report significant 10/10 pain of the left lower extremity and repeat CT angiogram being ordered. Patient underwent biopsy of the liver although suggestive of metastatic disease, specimen was insufficient for diagnosis. Oncology discussing looking into CT chest to evaluate the lung nodul es for possible biopsy and/or bronchoscopy. Patient is afebrile, white count remains slightly elevated, no reports of chest pain or shortness of breath and patient is on room air. Patient continues on antibiotics with concerns of lower extremity cellulitis as well. Encouraged to increase activity as tolerated although patient reports unable to stand due to the pain on the left leg. Recommend PT/OT therapy daily. 08/30/2023 Patient is seen and evaluated today with vascular surgery following and patient underwent CT angio runoff with plans for vascular intervention on Monday as the graft on the left is down and patient reports continued significant left leg pain and inability to ambulate or place any weight on it due to the pain. Multiple medications including Dilaudid, [place], gabapentin have been added with minimal pain relief. Patient also had CT chest with multiple lung nodules noted and oncology following recommending pulmonary consultation for possible bronchoscopy with biopsy for confirmation of diagnosis. Patient maintained on Xarelto and will be placed on hold for surgical intervention for Monday. Patient is afebrile with no reported chest pain or shortness of breath. Patient not eating very much she reports does not have much of an appetite. Patient is getting anxious about overall treatment plan moving forward. Overall prognosis is extremely poor and guarded. Patient remains full code 08/31/2023 Patient is seen in follow-up this morning continues to report severe left lower extremity leg pain with vascular surgery following plans of revascularization and evaluation of the graft on 09/01/[address] Almanza. Patient will be n.p.o. at midnight. Patient was evaluated by pulmonary recommending revascularization prior to bronchoscopy and/or biopsy of the lung nodules. Patient is currently sitting up in the bed on room air and denies any chest pain or shortness of breath. Patient reports is eating and tolerating with no reported nausea or vomiting. 09/01/2023 Patient is seen and evaluated in follow-up this morning currently n.p.o. as patient is scheduled to undergo revascularization intervention with Dr. Almanza this morning. Being taken to the OR currently. Vital signs are stable and we will follow-up and await surgical report. 09/02/2023 Patient is seen in follow-up today on the stepdown unit. Patient underwent left axillary to femoral bypass yesterday secondary to a failed femoral to femoral bypass. Patient was seen in follow-up with vascular surgery today who per patient has discussed possible surgical amputation of the left leg. The left foot today is blackened no pulse noted. Additionally patient's abdomen remains distended. Pulmonary following and recommending bronchoscopy versus thoracentesis for diagnostic measures regarding the right upper lobe mass. Patient is off Xarelto at this time. Her white blood cell count is elevated at 22.9, hemoglobin 9.1., Sodium 132, renal function is stable BUN of 24, creatinine of 0.74. She remains on IV cefazolin. 09/03/2023 Patient is seen in follow-up today on the stepdown unit. She continues to report significant pain to the left lower extremity currently rating it 8 out of 10. She is maintained on a combination of IV Dilaudid every 3 hours, gabapentin, [place] 7.5. Chest x-ray yesterday afternoon shows similar findings of COPD with irregular patchy infiltrates/pneumonia throughout the mid and lower lungs this is a nodular appearance raises the possibility of either concurrent metastatic disease or an atypical fungal mycobacterial infections. A trace right pleural effusion persists. Patient is seen in follow-up today by vascular surgery with recommendations for possible amputation and again patient is in agreements with this. Discussed metastatic liver disease with patient and again patient is wanting to continue with current treatment plan and for treatment even if it is palliative. Patient is not ready for hospice or comfort measures at this time. Plans for biopsy are on hold until patient finishes treatment for the ischemic limb. Patient understanding of this. Patient continues on IV cefazolin. Her blood work is improving white blood cell count down to 17.4, hemoglobin 7.7, sodium 133, BUN of 23, creatinine of 0.90. Magnesium 1.8. 09/04/2023 Patient is followed up today on the medical unit. Patient continues to report significant pain to the left lower extremity mainly of the foot and is rating it a 10 out of 10. She continues on IV and oral pain medication. Patient was reevaluated by vascular surgery recommending to hold the Xarelto at this time and patient is scheduled to undergo left [id number] amputation on Wednesday, September 06, 2023. She remains on oxygen nasal cannula at 4 L. White blood cell count of 19.6 today, hemoglobin 8.5, sodium 133, BUN of 20, creatinine of 0.70, magnesium 1.7. Chest X-ray from a few days ago continues to show a trace right pleural effusion and sodium down to 131 and patient has been continued on IV fluids. 09/05/2023 Patient is seen in follow-up today on the stepdown unit. Family at the bedside. Patient is scheduled to undergo left-sided hmouw-nja-stuz amputation on . Patient continues to report significant pain and discomfort to the left foot and leg. On IV and oral pain medications. Xarelto remains on hold. Chest xray follow up today reveals right greater than left greater bibasilar opacities. Bilateral areas of nodularity redemonstrated compatible with findings seen on CT chest 08/29/23. Correlate for metastatic disease versus atypical fungal/mycobacterial infections. ID was consulted due to the persistent leukocytosis antibiotics have been adjusted patient is on IV vancomycin and IV cefepime. White blood cell count 21.2 today, hgb 8.9, sodium 132, BUN 20, creatinine 0.71, magnesium 1.9. Medications reviewed. Review of systems: Constitutional: No reports of fatigue, fever, or chills Cardiovascular: No reports of chest pain or palpitations Respiratory: Reports shortness of breath no cough GI: No reports of nausea, vomiting, or diarrhea, Reports abdominal pain and distention. : No reports of dysuria or retention Neurovascular: reports of generalized weakness, reports continued left lower extremity pain /10 All medications have been reviewed PHYSICAL EXAMINATION: Patient is lying in the bed , elderly appearing, thin built, well-developed, awake alert and oriented.. HEENT: Normocephalic. Neck is supple. Pupils reactive. Nostrils clear. Oral cavity is moist. Neck reveals no JVD, carotid bruits, or thyromegaly. CHEST EXAMINATION: Trachea is central. Symmetrical expansion. Bibasilar diminished sounds. Scattered ronchi. CARDIAC: Normal S1, S2 with no gallops. No murmurs ABDOMEN: Soft. Tender on palpation, bowel sounds normal. Large firm liver noted on the right. No abdominal bruits. Extremities: Bilateral lower extremity swelling with skin dislocation/mottling of the left lower extremity. Neurologically awake, alert, oriented x3. Patient is able to move all extremities.. No focal deficits noted. diffusely weak Skin: No rash or skin lesions. Cyanosis noted on lower extremities as well as upper extremities, more so on the right hand; left foot is discolored and blackened extending up to the ankle. Skin tear on coccyx. Psychiatric: Cooperative. Non-suicidal, anxious. Musculoskeletal: No joint swelling or deformity. Normal range of motion. Assessment: -Bilateral lower extremity pain, swelling with recent history of femorofemoral bypass and left common femoral thromboendarterectomy with graft malfunction, S/P revascularization on September 01 with left axillary to femoral bypass. Patient is now scheduled to undergo left AKA on 09/06/23. -Possible bilateral lower extremity cellulitis, persistent leukocytosis antibiotics have been changed to IV cefepime and IV vancomycin with ID consultation -Acute kidney injury likely prerenal, improved. 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 Concern for volume overload patient will be given a dose of IV Lasix today. 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 Patient is scheduled for outpatient PET scan. Status post liver biopsy 08/25/2023, likely metastatic disease although specimen was insufficient for diagnosis -Abdominal aortic aneurysm stable from recent study -Currently everyday smoker -Moderate protein calorie malnutrition with a BMI of 23.4 -Hx of uterine cancer with hysterectomy GI prophylaxis DVT prophylaxis on Xarelto Full code Plan: -Patient is continued on antibiotics, ID consulation in place; antibiotics have been adjusted to vancomycin and cefepime. -Xarelto remains on hold status post revascularization, patient is now scheduled to undergo left AKA on Monday09/06/23. -Oncology following status post biopsy and there was noted necrotic tissue and likely metastatic disease although specimen was insufficient for diagnosis. Oncology is aware and patient underwent CT chest for evaluation with multiple lung nodules and has consulted pulmonary for further evaluation and possible bronchoscopy with biopsy for diagnosis. -Pulmonary has evaluated the patient recommending waiting bronchoscopy with biopsy until left lower extremity revascularization is done -Continue with pain management. Patient continues to report severe pain with Dilaudid and [place], gabapentin. -PT/OT following patient will require extensive rehabilitation after limb amputation. Overall prognosis remains poor. -Prognosis is extremely poor guarded with multiple medical problems and comorbid conditions. Patient currently remains a full code and would like to receive treatment if there are options available. Discussed with patient and she is not ready for comfort care or hospice measures. Family at the bedside today and updated on plan of care. -Remain off IV fluids, IV lasix x1 given. -Repeat labs in the AM. The impression and plan of care has been dictated by Marialuisa Montejo, Nurse Practitioner as directed. Dr. Lia MD I have performed a history and physical examination and medical decision making of this patient, discussed the same with the dictator, and agree with the dictators assessment and plan as written, documented as a scribe. Based on total visit time, I have performed more than 50% of this visit. Objective - Vital Signs Vital signs: Vital Signs Temp 98.7 F 09/05/23 12:00 Pulse 111 H 09/05/23 12:00 Resp 22 09/05/23 12:00 BP 125/59 09/05/23 12:00 Pulse Ox 94 L 09/05/23 12:00 FiO2 21 08/27/23 20:23 Intake & Output 09/04/23 09/05/23 09/05/23 18:59 06:59 18:59 Intake Total 1680 550 240 Output Total 675 Balance 1005 550 240 Intake: Intake, IV Titration 600 Amount Magnesium Sulfate-D5w Pmx 100 1 gm In Dextrose/Water 1 100ml.bag @ 100 mls/hr IVPB ONCE ONE Rx#: [id number] Sodium Chloride 0.9% 500 400 ml 1,000 ml @ 0 mls/hr IV .STK-MED ONE with Heparin Sodium,Porcine (1 ml) 10,000 unit Rx#: [id number] ceFAZolin 2 gm In Sodium 100 Chloride 0.9% 50 ml @ 100 mls/hr IVPB Q8HR [facility] Rx# :[id number] Oral 1080 240 Tube Feeding 550 Output: Urine 675 Other: Voiding Method Indwelling Catheter Indwelling Catheter Indwelling Catheter - Labs CBC & Chem 7: 09/05/23 08:46 09/05/23 08:46 Labs: Abnormal Lab Results - Last 24 Hours (Table) 09/05/23 09/05/23 Range/Units 08:46 08:46 WBC 21.2 H (3.8-10.6) k/uL RBC 3.04 L (3.80-5.40) m/uL Hgb 8.9 L (11.4-16.0) gm/dL Hct 29.5 L (34.0-46.0) % MCHC 30.0 L (31.0-37.0) g/dL RDW 19.3 H (11.5-15.5) % Neutrophils # 19.9 H (1.3-7.7) k/uL Lymphocytes # 0.5 L (1.0-4.8) k/uL Sodium 132 L (137-145) mmol/L BUN 20 H (7-17) mg/dL Glucose 109 H (74-99) mg/dL Calcium 7.8 L (8.4-10.2) mg/dL AST 53 H (14-36) U/L Alkaline Phosphatase 423 H (38-126) U/L C-Reactive Protein 33.6 H (<1.0) mg/dL Total Protein 4.1 L (6.3-8.2) g/dL Albumin 1.6 L (3.5-5.0) g/dL Microbiology - Last 24 Hours (Table) 09/02/23 14:46 Blood Culture - Preliminary Blood Assessment and Plan Time with Patient: Less than 30
[2023-09-05] MEDS: IPRATROPIUM-ALBUTEROL 3 ML NEB INHALATION SCH (20:45)
[2023-09-06 09:54] LABS: Anisocytosis Slight; Basophils % (A) 0 %; Eosinophils % (A) 0 %; HCT 25.5 % (34.0-46.0); HGB 7.7 gm/dL (11.4-16.0); Hypochromasia Marked; Lymphocytes # (A) 0.5 k/uL (1.0-4.8); Lymphocytes % (A) 3 %; MCH 29.3 pg (25.0-35.0); MCHC 30.2 g/dL (31.0-37.0); MCV 96.9 fL (80.0-100.0); Macrocytosis Slight; Monocytes # (A) 0.5 k/uL (0-1.0); Monocytes % (A) 3 %; Neutrophils # (A) 14.4 k/uL (1.3-7.7); Neutrophils % (A) 93 %; Platelet Count 151 k/uL (150-450); RBC 2.63 m/uL (3.80-5.40); RDW 19.1 % (11.5-15.5); WBC 15.4 k/uL (3.8-10.6)
[2023-09-06 10:14] LABS: African American GFR (CKD) 81 (>60 ml/min/1.73 sqM); Anion Gap 2 mmol/L; Blood Urea Nitrogen 24 mg/dL (7-17); Calcium 7.8 mg/dL (8.4-10.2); Carbon Dioxide 24 mmol/L (22-30); Chloride 106 mmol/L (98-107); Glucose 83 mg/dL (74-99); Magnesium 1.9 mg/dL (1.6-2.3); Non-African American GFR(CKD) 70 (>60 ml/min/1.73 sqM); Potassium 3.7 mmol/L (3.5-5.1); Sodium 132 mmol/L (137-145)
--- NOTE | 2023-09-06 11:37 | P.PN ---
Subjective Progress Note Date: 09/06/23 Principal diagnosis: Acute kidney injury. This is a 73-year-old female patient with a known history of pulmonary embolism, DVT of the left leg, uterine cancer with previous hysterectomy, chronic obstructive pulmonary disease with chronic and ongoing tobacco dependence. She had presented here to the emergency room back on August 22, 2023 with complaints of left leg pain. She has had chronic pain and had previously had surgery 2 weeks prior to her arrival here. She also was known to have suspected liver cancer with metastasis and was waiting on an outpatient PET scan. CT scan of the abdomen did reveal a post femoral-femoral bypass changes with fluid collection around the graft. There is a large hepatic mass with metastatic disease throughout the lungs. Similar infrarenal abdominal aortic aneurysm from previous scan in December 2022. She did have a liver biopsy here on August 25, 2023 that revealed necrotic cellular material suggestive of necrotic neoplasm but insufficient for diagnosis due to lack of viable tissue. We were consulted today for possible lung biopsy. 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 Her Xarelto is on hold and they are planning for axillofemoral bypass grafting on 09/01/2023. She is seen today in consultation on the regular medical floor. She is currently sitting up in bed. She is having quite a bit of musculoskeletal pain. She is also having quite a bit of left lower extremity pain. She is maintaining O2 saturations in the 90s on room air. She is afebrile. Hemodynamically stable. She denies any worsening shortness of breath, cough or congestion. No hemoptysis. The patient is seen today August 31, 2023 in follow-up on the regular medical floor. She is currently sitting up in bed having breakfast. Awake and alert in no acute distress. Maintaining O2 saturations in the 90s on room air. Ultrasound of the chest revealed small bilateral pleural effusions with 2.8 cm fluid on the right and 1.9 cm on the left. Not marked for thoracentesis. She is status post 2 units of packed red blood cells this admission. Current hemoglobin 8.0. Platelets 227. White count 14.2. Sodium 134. Potassium 4.0. Bicarb 24. BUN 17. Creatinine 0.7. Glucose 80. She remains on cefazolin. Normal saline at 50 MLS per hour. The patient is seen today September 01, 2023 in follow-up on the regular medical floor. She is currently resting in bed. Awake and alert in no acute distress. Maintaining O2 saturations in the mid 90s on room air. She is afebrile. Hemodynamically stable. Planning for an axillobifemoral bypass today with vascular surgery. She is status post 2 units of packed red blood cells this a dmission. Current hemoglobin 8.3. Platelets 193. White count 16.6. Sodium 131. Potassium 4.5. Bicarb 22. BUN 22. Creatinine 0.64. Glucose 88. Remains on cefazolin. Continued on bronchodilators. The patient is seen today September 02, 2023 in follow-up on the right on the selective care unit. She is awake and alert in no acute distress. She did undergo a left axillary to femoral bypass grafting yesterday. Her left lower extremity still quite discolored. Still having pain. Pulse is absent. She is status post 3 units of packed red blood cells this admission. Current hemoglobin 9.1. Platelets 186. White count 22.9. Sodium 132. Potassium 3.9. Bicarb 18. BUN 24. Creatinine 0.74. Glucose 71. She is currently maintaining good O2 saturations in the 90s on 4 L/min per nasal cannula. Afebrile. Hemodynamically stable. She is continued on cefazolin. The patient is seen today September 03, 2023 in follow-up on the selective care unit. She is currently resting in bed. Awake and alert in no acute distress. Still with significant left lower extremity pain. No pedal or posterior tibial pulses palpable. Leg remains very discolored cool to touch and mottled. She denies any worsening shortness of breath, cough or congestion. Chest x-ray continues to show evidence of COPD with irregular and patchy infiltrate/pneumonia throughout the mid and lower lungs. Nodular appearances raises the possibility of metastatic disease. She is status post 3 units of packed red blood cells this admission. Current hemoglobin 7.7. Platelets 160. White count 17.4. Sodium 133. Potassium 3.9. Bicarb 23. BUN 23. Creatinine 0.90. She is continued on bronchodilators. Remains on cefazolin. Dilaudid and [place] for pain control. The patient is seen today September 04, 2023 in follow-up on the selective care unit. She is currently resting in bed. Awake and alert in no acute distress. Still having discomfort in the left lower extremity. He is currently maintaining O2 saturations in the 90s on 4 L/min per nasal cannula. She is afebrile. Hemodynamically stable. White count 19.6. Hemoglobin 8.5. Platelets 198. Sodium 131. Potassium 4.1. Bicarb 24. BUN 20. Creatinine 0.70. Glucose 87. She remains on cefazolin. Heparin for DVT prophylaxis. Continued on bronchodilators. Pain medication in the form of Dilaudid and [place]. Progress note dated September 05, 2023. 73-year-old female seen today in room 379. The patient is going for surgery, on the left lower extremity, tomorrow. Currently, the patient is on 3 L of oxygen by nasal cannula. She continues on vancomycin, and cefepime. Current laboratory data includes a white count of 21.2, hemoglobin 8.9, hematocrit 29.5, and a platelet count of 237,000. Sodium 132, potassium 3.7, chlorides 106, CO2 22, BUN 20, creatinine 0.71. Glucose is 109. AST is 53. Alkaline phosphatase is 423. C-reactive protein is 33.6. N-terminal proBNP is 1440. Albumin is 1.6. X-rays consistent with COPD, and slight worsening of the infiltrates, in the right greater than left basilar areas. Progress note dated September 06, 2023. 73-year-old female seen today in room 379. The patient is scheduled to have an amputation of the left lower extremity, sometime later today. The patient continues on oxygen at 3 L. The patient continues on antibiotics in the form of cefepime, and vancomycin. She has no new complaints today. Current labs include a white count 15.4, hemoglobin 7.7, hematocrit 25.5, and a platelet count of 151,000. Sodium 132, potassium 3.7, chlorides 106, CO2 24, BUN 24, and creatinine 0.84. Calcium is 7.8. Magnesium is 1.9. Procalcitonin level from yesterday, was 1.25. Objective - Vital Signs Vital signs: Vital Signs Temp 97.8 F 09/06/23 08:05 Pulse 86 09/06/23 09:51 Resp 16 09/06/23 08:05 BP 121/74 09/06/23 08:05 Pulse Ox 97 09/06/23 09:31 FiO2 21 08/27/23 20:23 Intake & Output 09/05/23 09/06/23 09/06/23 18:59 06:59 18:59 Intake Total 600 Output Total 1600 1275 Balance -1000 -1275 Intake: Oral 600 Output: Urine 1600 1275 Other: Voiding Method Indwelling Catheter Indwelling Catheter Indwelling Catheter - Exam No acute distress, oriented 3. Patient is currently on 3 L of oxygen by nasal cannula. HEENT examination is grossly unremarkable. Mucous membranes are moist. No oral lesions. Neck supple. Full range of motion. No adenopathy thyromegaly or neck vein distention. Cardiovascular examination reveals regular rhythm rate. S1-S2 normal. No S3 or S4. No discernible murmur noted. Heart sounds are distant. Heart rate 86 bpm. Lungs reveal clear breath sounds. Breath sounds are equal bilaterally. No adventitious lung sounds including wheezes rhonchi or crackles. Saturations are 97 % on 3 L. Abdomen soft bowel sounds are heard. No masses or tenderness. Extremities are intact. Bilateral lower extremity edema, left greater than right, with multiple areas of ecchymoses.. Skin reveals lower extremity ecchymoses. Neurologic examination is brief but nonfocal. - Labs CBC & Chem 7: 09/06/23 08:13 09/06/23 08:13 Labs: Abnormal Lab Results - Last 24 Hours (Table) 09/05/23 09/06/23 09/06/23 Range/Units 08:46 08:13 08:13 WBC 15.4 H (3.8-10.6) k/uL RBC 2.63 L (3.80-5.40) m/uL Hgb 7.7 L (11.4-16.0) gm/dL Hct 25.5 L (34.0-46.0) % MCHC 30.2 L (31.0-37.0) g/dL RDW 19.1 H (11.5-15.5) % Neutrophils # 14.4 H (1.3-7.7) k/uL Lymphocytes # 0.5 L (1.0-4.8) k/uL Sodium 132 L (137-145) mmol/L BUN 24 H (7-17) mg/dL Calcium 7.8 L (8.4-10.2) mg/dL Procalcitonin 1.25 H (0.02-0.09) ng/mL Microbiology - Last 24 Hours (Table) 09/02/23 14:46 Blood Culture - Preliminary Blood Assessment and Plan Assessment: Left leg pain, swelling and discoloration secondary to occlusion of the left superficial femoral artery extending from its origin to the popliteal artery. Reconstitution with poor visualization of the anterior posterior tibial arteries. Status post left axillobifemoral bypass grafting September 01, 2023. Will most likely need amputation per vascular surgery. Liver mass with biopsy on 08/25/2023 revealing fragments of necrotic cellular material suggestive of necrotic neoplasm, insufficient for diagnosis due to lack of viable tissue. Right apical masslike density. Scattered pulmonary nodules mid and lower lung beatty. Patchy basilar infiltrates. Small right effusion. Suspect metastatic disease. Recent surgery on 08/04/2023 with left common femoral thromboendarterectomy for occlusive disease. History of DVT/PE. History of abdominal aortic aneurysm. Chronic and ongoing tobacco dependence. Anorexia/cachexia syndrome with a BMI of 23.4 kg/m. Plan: Plan dated September 05, 2023. The patient is anticipated to have a left lower extremity amputation tomorrow, September 06, 2023. Labs, x-rays, medications are reviewed. The patient remains on antibiotics in the form of vancomycin and cefepime. The patient continues on oxygen at 3 L. The patient is not receiving any IV fluids at this time. We will continue to follow the patient, make recommendations along the way. Prognosis is guarded. Plan dated September 06, 2023. The patient is planning to have an amputation sometime later today. The patient continues on vancomycin and cefepime. The patient is on 3 L of oxygen. Labs, x-rays, medications are reviewed. The patient's overall prognosis remains very guarded. We will continue to follow, make recommendations along the way. Time with Patient: Less than 30
[2023-09-06] MEDS: POTASSIUM CHLORIDE ER 20 MEQ TAB.ER PO STA (11:57)
[2023-09-06] MEDS: IV FLUID CONTINUATION 1,000 ML IV ONE (14:10)
--- NOTE | 2023-09-06 15:16 | P.PN ---
Subjective Progress Note Date: 09/06/23 Patient is a 73-year-old female with a past medical history of DVT/PE on anticoagulation, peripheral vascular disease with left leg pain status post femoral to femoral bypass and left common femoral thromboendarterectomy on 08/04/2023, history of cholecystectomy on 07/11/2023 presents to ER with complaints of left lower extremity pain swelling and discoloration. Patient has been having chronic pain which has improved during the last 7 to 10 days. Patient does have history of liver mass and her physician is planning to get PET scan as an outpatient.. Patient has not seen oncology before. Otherwise patient denied any complaints of fever or chills. No nausea vomiting. No diarrhea. No cough or sputum production. No chest pain. EKG showed sinus rhythm. CT of the abdomen pelvis showed post femoral-femoral bypass changes with fluid collection around the graft. 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 Similar infrarenal abdominal aortic aneurysm back to at least 01/04/2023. Measuring 3.7 x 4.4 cm. Laboratory data showed WBC 18.8 hemoglobin 7.1, MCV 88.7 and platelets 473 INR 1.6, sodium 130 potassium 5.2 chloride 100 bicarb is 19 BUN 68, creatinine 2.03 and blood sugar 100 Total bili 1.9 AST 89 ALT 43 and alk phos 428 and albumin 2.5 and lipase level 977 08/24/2023 Patient is seen and evaluated in follow-up today being followed by vascular surgery along with oncology and interventional radiology was consulted for possible biopsy. Patient continued on empiric antibiotics with concerns of possible cellulitis of the lower extremities. Patient evaluated by vascular surgery as patient is recent femoropopliteal bypass and left common femoral thromboendarterectomy with no plans of revascularization interventions at this time. Patient okay to resume anticoagulation once cleared by oncology. Will hold on anticoagulation for now as hemoglobin is low and post 1 unit of PRBCs hemoglobin is 7.7 today. Discussing possible biopsy of the liver and will hold on anticoagulation including holding subcutaneous heparin for now. Interventional radiology consulted and pending. Patient with significant weakness would recommend being evaluated by PT/OT therapy. Overall treatment plan discussed with patient and would like to receive treatment if available. W ill discuss further with oncology once biopsy is performed. 08/25/2023 Patient is seen in follow-up today currently n.p.o. scheduled to undergo ultrasound for possible liver biopsy with interventional radiology. Patient maintained on antibiotics as severe and patient is maintained on Dilaudid. Will also add Cashiers for breakthrough pain as patient reports 10/10 on the pain scale. Vascular surgery evaluated the patient with no plans of revascularization or surgical intervention on that left lower extremity. No contraindication to resume anticoagulation and Xarelto is being resumed. Patient is afebrile with no reports of chest pain or shortness of breath. Patient is currently wearing 2 L although does not normally wear oxygen outpatient. Encouraged oral intake and increased activity as tolerated. Patient to undergo biopsy and awaiting pathology as there is concerns of metastasis from the lungs as well. Overall prognosis is poor and guarded left at this time. 08/26/2023 Patient is resting in the bed. Awake alert and oriented x 3. No complaints of chest pain or shortness of breath. Patient still having left lower extremity discoloration of the toes. Swelling is about the same. Right lower extremity swelling did improve. Patient is s/p liver biopsy. Continued on anticoagulation with Xarelto. Patient is on antibiotics, cefazolin. Laboratory showed WBC 13.4 hemoglobin 7.7 and platelets 217 Sodium 130 potassium 3.5 chloride 101 bicarb is 24 BUN 25 and creatinine 0.93 and blood sugar 103 and calcium 7.8 and magnesium 2.2 08/27/2023 Patient is resting in the bed. Awake alert and oriented x 3. No nausea vomiting abdominal pain or diarrhea. Currently on room air. Still having left lower extremity discoloration of the toes and swelling. Hemoglobin 6.9 this morning and is being transfused with 1 unit of PRBC Other laboratory data showed WBC trending down to 12.8 hemoglobin 6.9 and platelets 218 sodium 134 potassium 4.3 chloride 103 bicarb is 23.5 BUN 19 and creatinine 1.0 and blood sugar 96 and calcium 8.1. Patient is on anticoagulation with Xarelto and also antibiotics cefazolin. Pain is controlled. 08/28/2023 Patient is seen and evaluated in follow-up today with multiple medical consultations following including vascular surgery and oncology. Patient continues to have a white count although is trending down and will follow-up with repeat labs. Patient is status post biopsy of the liver which is pending. Patient continues to report significant pain in the left lower extremity with inability to ambulate and was evaluated by vascular surgery with no plans of revascularization and also discussed with the patient about possible amputation for palliative pain relief as there are no plans or availabilities for further surgical intervention on that left lower extremity. Anticoagulation resumed. Patient remains on cefazolin with concerns of possible cellulitis of the lower extremities. Recommend repeat labs in the a.m. and continued PT/OT therapy 08/29/2023 Patient is seen in follow-up this morning with vascular and oncology following. Patient continues to report significant 10/10 pain of the left lower extremity and repeat CT angiogram being ordered. Patient underwent biopsy of the liver although suggestive of metastatic disease, specimen was insufficient for diagnosis. Oncology discussing looking into CT chest to evaluate the lung nodul es for possible biopsy and/or bronchoscopy. Patient is afebrile, white count remains slightly elevated, no reports of chest pain or shortness of breath and patient is on room air. Patient continues on antibiotics with concerns of lower extremity cellulitis as well. Encouraged to increase activity as tolerated although patient reports unable to stand due to the pain on the left leg. Recommend PT/OT therapy daily. 08/30/2023 Patient is seen and evaluated today with vascular surgery following and patient underwent CT angio runoff with plans for vascular intervention on Monday as the graft on the left is down and patient reports continued significant left leg pain and inability to ambulate or place any weight on it due to the pain. Multiple medications including Dilaudid, Cashiers, gabapentin have been added with minimal pain relief. Patient also had CT chest with multiple lung nodules noted and oncology following recommending pulmonary consultation for possible bronchoscopy with biopsy for confirmation of diagnosis. Patient maintained on Xarelto and will be placed on hold for surgical intervention for Monday. Patient is afebrile with no reported chest pain or shortness of breath. Patient not eating very much she reports does not have much of an appetite. Patient is getting anxious about overall treatment plan moving forward. Overall prognosis is extremely poor and guarded. Patient remains full code 08/31/2023 Patient is seen in follow-up this morning continues to report severe left lower extremity leg pain with vascular surgery following plans of revascularization and evaluation of the graft on 09/01/[address] Almanza. Patient will be n.p.o. at midnight. Patient was evaluated by pulmonary recommending revascularization prior to bronchoscopy and/or biopsy of the lung nodules. Patient is currently sitting up in the bed on room air and denies any chest pain or shortness of breath. Patient reports is eating and tolerating with no reported nausea or vomiting. 09/01/2023 Patient is seen and evaluated in follow-up this morning currently n.p.o. as patient is scheduled to undergo revascularization intervention with Dr. Almanza this morning. Being taken to the OR currently. Vital signs are stable and we will follow-up and await surgical report. 09/02/2023 Patient is seen in follow-up today on the stepdown unit. Patient underwent left axillary to femoral bypass yesterday secondary to a failed femoral to femoral bypass. Patient was seen in follow-up with vascular surgery today who per patient has discussed possible surgical amputation of the left leg. The left foot today is blackened no pulse noted. Additionally patient's abdomen remains distended. Pulmonary following and recommending bronchoscopy versus thoracentesis for diagnostic measures regarding the right upper lobe mass. Patient is off Xarelto at this time. Her white blood cell count is elevated at 22.9, hemoglobin 9.1., Sodium 132, renal function is stable BUN of 24, creatinine of 0.74. She remains on IV cefazolin. 09/03/2023 Patient is seen in follow-up today on the stepdown unit. She continues to report significant pain to the left lower extremity currently rating it 8 out of 10. She is maintained on a combination of IV Dilaudid every 3 hours, gabapentin, Cashiers 7.5. Chest x-ray yesterday afternoon shows similar findings of COPD with irregular patchy infiltrates/pneumonia throughout the mid and lower lungs this is a nodular appearance raises the possibility of either concurrent metastatic disease or an atypical fungal mycobacterial infections. A trace right pleural effusion persists. Patient is seen in follow-up today by vascular surgery with recommendations for possible amputation and again patient is in agreements with this. Discussed metastatic liver disease with patient and again patient is wanting to continue with current treatment plan and for treatment even if it is palliative. Patient is not ready for hospice or comfort measures at this time. Plans for biopsy are on hold until patient finishes treatment for the ischemic limb. Patient understanding of this. Patient continues on IV cefazolin. Her blood work is improving white blood cell count down to 17.4, hemoglobin 7.7, sodium 133, BUN of 23, creatinine of 0.90. Magnesium 1.8. 09/04/2023 Patient is followed up today on the medical unit. Patient continues to report significant pain to the left lower extremity mainly of the foot and is rating it a 10 out of 10. She continues on IV and oral pain medication. Patient was reevaluated by vascular surgery recommending to hold the Xarelto at this time and patient is scheduled to undergo left [id number] amputation on Wednesday, September 06, 2023. She remains on oxygen nasal cannula at 4 L. White blood cell count of 19.6 today, hemoglobin 8.5, sodium 133, BUN of 20, creatinine of 0.70, magnesium 1.7. Chest X-ray from a few days ago continues to show a trace right pleural effusion and sodium down to 131 and patient has been continued on IV fluids. 09/05/2023 Patient is seen in follow-up today on the stepdown unit. Family at the bedside. Patient is scheduled to undergo left-sided afwon-ijh-tuig amputation on . Patient continues to report significant pain and discomfort to the left foot and leg. On IV and oral pain medications. Xarelto remains on hold. Chest xray follow up today reveals right greater than left greater bibasilar opacities. Bilateral areas of nodularity redemonstrated compatible with findings seen on CT chest 08/29/23. Correlate for metastatic disease versus atypical fungal/mycobacterial infections. ID was consulted due to the persistent leukocytosis antibiotics have been adjusted patient is on IV vancomycin and IV cefepime. White blood cell count 21.2 today, hgb 8.9, sodium 132, BUN 20, creatinine 0.71, magnesium 1.9. 09/06/2023 Patient is followed up today in the stepdown unit. She is pending surgical intervention for her ischemic leg she will undergo a left-sided [id number] amputation today. Patient continues to report pain to the left leg currently 8 out of 10. Patient has an indwelling catheter in place she has been leaking urine around the Benjamin discussed with nursing and they will plan on addressing this and changing the bag out today. She received a dose of IV Lasix yesterday reports that she was breathing much better. Her white blood cell count is 15.4, hemoglobin 7.7, sodium of 132, potassium of 3.7, BUN of 24, creatinine of 0.84. Magnesium 1.9. Procalcitonin level of 1.25. Medications reviewed. Review of systems: Constitutional: No reports of fatigue, fever, or chills Cardiovascular: No reports of chest pain or palpitations Respiratory: Reports shortness of breath no cough GI: No reports of nausea, vomiting, or diarrhea, Reports abdominal pain and distention. : No reports of dysuria or retention Neurovascular: reports of generalized weakness, reports continued left lower extremity pain 02/02 All medications have been reviewed PHYSICAL EXAMINATION: Patient is lying in the bed , elderly appearing, thin built, well-developed, awake alert and oriented.. HEENT: Normocephalic. Neck is supple. Pupils reactive. Nostrils clear. Oral cavity is moist. Neck reveals no JVD, carotid bruits, or thyromegaly. CHEST EXAMINATION: Trachea is central. Symmetrical expansion. Bibasilar diminished sounds. Scattered ronchi. CARDIAC: Normal S1, S2 with no gallops. No murmurs ABDOMEN: Soft. Tender on palpation, bowel sounds normal. Large firm liver noted on the right. No abdominal bruits. Extremities: Bilateral lower extremity swelling with skin dislocation/mottling of the left lower extremity. Neurologically awake, alert, oriented x3. Patient is able to move all extremities.. No focal deficits noted. diffusely weak Skin: No rash or skin lesions. Cyanosis noted on lower extremities as well as upper extremities, more so on the right hand; left foot is discolored and blackened extending up to the ankle. Skin tear on coccyx. Psychiatric: Cooperative. Non-suicidal, anxious. Musculoskeletal: No joint swelling or deformity. Normal range of motion. Assessment: -Bilateral lower extremity pain, swelling with recent history of femorofemoral bypass and left common femoral thromboendarterectomy with graft malfunction, S/P revascularization on September 01 with left axillary to femoral bypass. Patient is now scheduled to undergo left AKA on 09/06/23. -Possible bilateral lower extremity cellulitis, persistent leukocytosis antibiotics have been changed to IV cefepime and IV vancomycin with ID consultation -Acute kidney injury likely prerenal, improved. 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 Concern for volume overload patient will be given a dose of IV Lasix today. 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 Patient is scheduled for outpatient PET scan. Status post liver biopsy 08/25/2023, likely metastatic disease although specimen was insufficient for diagnosis -Abdominal aortic aneurysm stable from recent study -Currently everyday smoker -Moderate protein calorie malnutrition with a BMI of 23.4 -Hx of uterine cancer with hysterectomy GI prophylaxis DVT prophylaxis on Xarelto Full code Plan: -Patient is continued on antibiotics, ID consulation in place; antibiotics have been adjusted to vancomycin and cefepime. -Xarelto remains on hold status post revascularization, patient is now scheduled to undergo left AKA on Monday09/06/23. -Oncology following status post biopsy and there was noted necrotic tissue and likely metastatic disease although specimen was insufficient for diagnosis. Oncology is aware and patient underwent CT chest for evaluation with multiple lung nodules and has consulted pulmonary for further evaluation and possible bronchoscopy with biopsy for diagnosis. -Pulmonary has evaluated the patient recommending waiting bronchoscopy with biopsy until left lower extremity revascularization is done -Continue with pain management. Patient continues to report severe pain with Dilaudid and Cashiers, gabapentin. -PT/OT following patient will require extensive rehabilitation after limb amputa tion. Overall prognosis remains poor. -Prognosis is extremely poor guarded with multiple medical problems and comorbid conditions. Patient currently remains a full code and would like to receive padmini atment if there are options available. Discussed with patient and she is not ready for comfort care or hospice measures. Family at the bedside today and updated on plan of care. -Remain off IV fluids, IV lasix x1 given. -Repeat labs in the AM. The impression and plan of care has been dictated by Marialuisa Montejo, Nurse Practitioner as directed. Dr. Lia MD I have performed a history and physical examination and medical decision making of this patient, discussed the same with the dictator, and agree with the dictators assessment and plan as written, documented as a scribe. Based on total visit time, I have performed more than 50% of this visit. Objective - Vital Signs Vital signs: Vital Signs Temp 98.4 F 09/06/23 14:10 Pulse 125 H 09/06/23 14:35 Resp 22 09/06/23 14:10 BP 97/54 09/06/23 14:10 Pulse Ox 95 09/06/23 14:10 FiO2 21 08/27/23 20:23 Intake & Output 09/05/23 09/06/23 09/06/23 18:59 06:59 18:59 Intake Total 600 Output Total 1600 1275 Balance -1000 -1275 Intake: Oral 600 Output: Urine 1600 1275 Other: Voiding Method Indwelling Catheter Indwelling Catheter Indwelling Catheter # Voids 1 # Bowel Movements 1 - Labs CBC & Chem 7: 09/06/23 08:13 09/06/23 08:13 Labs: Abnormal Lab Results - Last 24 Hours (Table) 09/05/23 09/06/23 09/06/23 Range/Units 08:46 08:13 08:13 WBC 15.4 H (3.8-10.6) k/uL RBC 2.63 L (3.80-5.40) m/uL Hgb 7.7 L (11.4-16.0) gm/dL Hct 25.5 L (34.0-46.0) % MCHC 30.2 L (31.0-37.0) g/dL RDW 19.1 H (11.5-15.5) % Neutrophils # 14.4 H (1.3-7.7) k/uL Lymphocytes # 0.5 L (1.0-4.8) k/uL Sodium 132 L (137-145) mmol/L BUN 24 H (7-17) mg/dL Calcium 7.8 L (8.4-10.2) mg/dL Procalcitonin 1.25 H (0.02-0.09) ng/mL Microbiology - Last 24 Hours (Table) 09/02/23 14:46 Blood Culture - Preliminary Blood Assessment and Plan Time with Patient: Less than 30
--- NOTE | 2023-09-06 16:11 | XR ---
EXAMINATION TYPE: XR chest 2V DATE OF EXAM: 09/06/2023 COMPARISON: 09/05/2023 HISTORY: 73-year-old female hypoxemia TECHNIQUE: AP and lateral views FINDINGS: Heart normal size. Hyperinflation. Right IJ CVC tip mid SVC. Numerous bilateral nodules and masses ar e redemonstrated. Airspace disease in the bilateral lung bases is improving. IMPRESSION: 1. COPD with numerous bilateral masslike and nodular densities. 2. Residual but improving airspace disease at the lung bases.
--- NOTE | 2023-09-06 16:14 | P.PN ---
Progress Note - Text Patient was scheduled for a left kiscz-kip-zwez amputation today however anesthesia team felt that the patient was in congestive heart failure. As such the patient's procedure was postponed until such time medical optimization can be achieved.
[2023-09-06] MEDS: FUROSEMIDE 10 MG/ML 4 ML VIAL IV STA (17:45)
[2023-09-06] MEDS: CEFEPIME 2 GM in SODIUM CHLORIDE 0.9% 100 ML IVPB SCH (21:15)
[2023-09-07] MEDS: SYMBICORT 160-4.5 MCG INHALER INHALATION SCH (08:11)
[2023-09-07 08:25] LABS: Anisocytosis Slight; Basophils % (A) 0 %; Eosinophils % (A) 0 %; HCT 23.6 % (34.0-46.0); HGB 7.1 gm/dL (11.4-16.0); Hypochromasia Marked; Lymphocytes # (A) 0.5 k/uL (1.0-4.8); Lymphocytes % (A) 3 %; MCH 29.3 pg (25.0-35.0); MCHC 30.2 g/dL (31.0-37.0); MCV 96.9 fL (80.0-100.0); Macrocytosis Slight; Monocytes # (A) 0.4 k/uL (0-1.0); Monocytes % (A) 2 %; Neutrophils # (A) 15.5 k/uL (1.3-7.7); Neutrophils % (A) 94 %; Platelet Count 152 k/uL (150-450); RBC 2.43 m/uL (3.80-5.40); RDW 19.1 % (11.5-15.5); WBC 16.6 k/uL (3.8-10.6)
[2023-09-07 08:38] LABS: African American GFR (CKD) 60 (>60 ml/min/1.73 sqM); Anion Gap 1 mmol/L; Blood Urea Nitrogen 30 mg/dL (7-17); Carbon Dioxide 23 mmol/L (22-30); Chloride 108 mmol/L (98-107); Glucose 82 mg/dL (74-99); Magnesium 1.9 mg/dL (1.6-2.3); Non-African American GFR(CKD) 52 (>60 ml/min/1.73 sqM); Sodium 132 mmol/L (137-145)
--- NOTE | 2023-09-07 10:01 | CA ---
Transthoracic Echo Report Name: Opal Atkinson Age: 73 Gender: F : 1950 Exam Date: 09/07/2023 07:31 Exam Location: [facility] Ht (in): 62 Wt (lb): 132 Ordering Physician: Mathew Roy MD ([id number]) Attending/Referring Phys: Mental Measurements Teacher Ruth Ann Montez RCS Procedure CPT: Indications: PAD Cardiac Hx: Technical Quality: Very technically difficult study Contrast 1: Total Dose (mL): Contrast 2: Total Dose (mL): MEASUREMENTS (Male / Female) Normal Values 2D ECHO LV Diastolic Diameter PLAX 4.2 cm 4.2 - 5.9 / 3.9 - 5.3 cm LV Systolic Diameter PLAX 2.6 cm IVS Diastolic Thickness 1.0 cm 0.6 - 1.0 / 0.6 - 0.9 cm LVPW Diastolic Thickness 0.8 cm 0.6 - 1.0 / 0.6 - 0.9 cm LV Relative Wall Thickness 0.4 LVOT Diameter 2.3 cm FINDINGS Left Ventricle Left ventricular ejection fraction is estimated at 55-60 %. Left ventricular wall thickness normal. Left ventricular cavity size normal. Right Ventricle Right ventricle not well visualized. Right Atrium Right atrium not well visualized. Left Atrium Left atrium not well visualized. Mitral Valve Structurally normal mitral valve. No evidence for mitral valve prolapse. No mitral stenosis. No mitral regurgitation. Aortic Valve Aortic valve not well visualized. No aortic stenosis. No aortic regurgitation. Tricuspid Valve Structurally normal tricuspid valve. No tricuspid regurgitation. No tricuspid stenosis. Pulmonic Valve Pulmonic valve not well visualized. Pericardium No pericardial effusion. Aorta Aortic annulus normal. Ascending aorta not well visualized. CONCLUSIONS Technically very difficult study for interpretation. Patient suffuse Definity Probably normal LV systolic function Previewed by: Dr. Carmine Etienne MD (Electronically Signed) Final Date: 07 September 2023 10:00
--- NOTE | 2023-09-07 10:44 | P.CRDCN ---
History of Present Illness Consult date: 09/07/23 Reason for Consult (text): Surgical clearance History of present illness: History of present illness: This is a 73-year-old female patient of Dr. Freeman with past medical history of peripheral artery disease involving bilateral superficial femoral, infrarenal aortic aneurysm 4.5 cm, history of pulmonary embolism, DVT in the left leg, uterine cancer s/p hysterectomy, COPD, chronic tobacco use and dependence. Patient presented with left femoral and popliteal artery occlusive disease status post left axillary to femoral artery bypass with no improvement of pain. She is known to have a large liver mass with metastatic disease throughout the lungs, treated for acute kidney injury. We have been asked to get preop clearance as there was concern of heart failure from anesthesia. EKG performed 08/22 sinus rhythm, incomplete right bundle branch block, left axis deviation. Chest x-ray: 09/05: COPD with numerous bilateral masslike and nodular densities. Residual but improving airspace disease of the lung bases. WBC 16.6, hemoglobin 7, platelet count 19.1. Sodium 132, potassium 4, BUN 30 creatinine 1.08. proBNP 1440. Home cardiac medications: Atorvastatin 40 mg at bedtime, Xarelto 20 mg daily. Echocardiogram performed 03/02/2023 revealed normal EF, moderate pulmonary hypertension. Limited echocardiogram performed 09/06/2023 reveals technically difficult study. Probable normal LV systolic function. Review Of Systems: At the time of my exam: CONSTITUTIONAL: Denies fever or chills. HEENT: Denies blurred vision, vision changes, or eye pain. Denies hemoptysis CARDIOVASCULAR: Denies chest pain. Denies orthopnea. Denies PND. Denies palpitations RESPIRATORY: + shortness of breath. + cough noted. GASTROINTESTINAL: Denies abdominal pain. Denies nausea or vomiting. HEMATOLOGIC: Denies bleeding disorders. GENITOURINARY: Denies any blood in urine. SKIN: Denies pruitis. Denies rash. Physical examination: Gen: This is a 73-year-old frail cachectic appearing female VS: reviewed HEENT: Head is atraumatic, normocephalic. Pupils equal, round. Sclerae is anicteric. NECK: Supple. No JVD. Right bruit LUNGS: Bilateral rhonchi. No intercostal retractions. HEART: Regular rate and rhythm. Systolic murmur. ABDOMEN: Abdominal mass palpated. EXTREMITIES: Left lower extremity with ischemic changes, right lower extremity with edema. NEUROLOGICAL: Patient is awake, alert and oriented x3. Assessment: Left leg pain secondary to close of left superficial femoral artery plan for [id number] amputation Liver mass Lung nodules History of PE and DVT Dyslipidemia Chronic tobacco use and dependence Plan: Continue current cardiac medications Patient is at high risk for any surgical intervention due to multiple significant comorbidities. No sign of heart failure in this patient. Further recommendations to follow based upon clinical course Nurse practitioner note has been reviewed, I agree with documented findings and plan of care. Patient was seen and examined. 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 History of Any Multi-Drug Resistant Organisms: None Reported Past Surgical History: Back Surgery, Hysterectomy, Orthopedic Surgery, Tonsillectomy Additional Past Surgical History / Comment(s): Ectopic with salpingectomy/ovary removed then hysterectomy d/t cancer and has part of one ovary left, kyphoplasty, R shoulder fracture with surgery/screws in place, right hip replacement Past Anesthesia/Blood Transfusion Reactions: No Reported Reaction Additional Past Anesthesia/Blood Transfusion Reaction / Comment(s): Pt believes she may have received blood years ago with ectopic . Past Psychological History: No Psychological Hx Reported Additional Psychological History / Comment(s): Pt resides alone in Senior Housing. She is independent. Smoking Status: Current every day smoker Past Alcohol Use History: None Reported Additional Past Alcohol Use History / Comment(s): Pt started smoking in 1965 and was a 2 ppd smoker. Last September 2016 she started cutting back and is now down to 2 cigarettes a day to week. Past Drug Use History: None Reported Additional Drug Use History / Comment(s): None - Past Family History Mother Family Medical History: Dementia, Hypertension Additional Family Medical History / Comment(s): ALZHEIMERS Father Family Medical History: Myocardial Infarction (DC) Additional Family Medical History / Comment(s): AT AGE 59 FROM [place] Brother(s) Family Medical History: Myocardial Infarction (DC) Additional Family Medical History / Comment(s): ALSO AT AGE 59 FROM [place] AND A 2ND BROTHER W/VASCULAR DISEASE. Sister(s) Family Medical History: Cancer Additional Family Medical History / Comment(s): LUNG CANCER(SMOKER) Medications and Allergies Home Medications Medication Instructions Recorded Confirmed Type Albuterol Inhaler [Ventolin Hfa 2 puff INHALATION RT-Q4H PRN 09/28/17 08/22/23 History Inhaler] Atorvastatin Calcium [Lipitor] 40 mg PO HS 07/11/23 08/22/23 History Calcium Carbonate/Vitamin D3 1 tab PO DAILY 07/11/23 08/22/23 History [Calcium 600-Vit D3 10 mcg (400 Iu)] Co Q10 100 mg PO DAILY 07/11/23 08/22/23 History Fluticasone/Umeclidin/Vilanter 1 puff INHALATION RT-DAILY 07/11/23 08/22/23 History [Trelegy Ellipta 100-62.5-25] Rivaroxaban [Xarelto] 20 mg PO DAILY@1500 08/22/23 08/22/23 History Allergies Allergy/AdvReac Type Severity Reaction Status Date / Time No Known Allergies Allergy Verified 08/22/23 16:37 Physical Exam Vitals: Vital Signs Temp Pulse Pulse Pulse Resp BP BP 09/07/23 08:12 90 09/07/23 07:55 97.9 F 88 20 107/61 09/07/23 03:36 74 16 97/60 09/06/23 23:06 98 20 101/62 09/06/23 20:26 91 09/06/23 20:12 93 09/06/23 20:06 98.0 F 96 16 100/60 09/06/23 16:46 56 L 09/06/23 16:32 56 L 09/06/23 15:15 99.0 F 113 H 24 89/60 09/06/23 14:35 125 H 09/06/23 14:10 98.4 F 59 L 22 97/54 09/06/23 13:20 86 09/06/23 13:07 100 09/06/23 11:45 97.7 F 119 H 18 115/75 09/06/23 09:51 86 09/06/23 09:31 84 Pulse Ox 09/07/23 08:12 09/07/23 07:55 95 09/07/23 03:36 99 09/06/23 23:06 99 09/06/23 20:26 09/06/23 20:12 09/06/23 20:06 98 09/06/23 16:46 09/06/23 16:32 09/06/23 15:15 89 L 09/06/23 14:35 09/06/23 14:10 95 09/06/23 13:20 09/06/23 13:07 09/06/23 11:45 92 L 09/06/23 09:51 09/06/23 09:31 97 Intake and Output 09/06/23 09/07/23 09/07/23 22:59 06:59 14:59 Intake Total 240 Balance 240 Intake: Oral 240 Other: Voiding Method Indwelling Catheter Indwelling Catheter Indwelling Catheter Results 09/07/23 08:00 09/07/23 08:00 CBC 09/06/23 09/07/23 Range/Units 08:13 08:00 WBC 15.4 H 16.6 H (3.8-10.6) k/uL RBC 2.63 L 2.43 L (3.80-5.40) m/uL Hgb 7.7 L 7.1 L (11.4-16.0) gm/dL Hct 25.5 L 23.6 L (34.0-46.0) % Plt Count 151 152 (150-450) k/uL Comprehensive Metabolic Panel 09/06/23 Range/Units 08:13 Sodium 132 L (137-145) mmol/L Potassium 3.7 (3.5-5.1) mmol/L Chloride 106 (98-107) mmol/L Carbon Dioxide 24 (22-30) mmol/L BUN 24 H (7-17) mg/dL Creatinine 0.84 (0.52-1.04) mg/dL Glucose 83 (74-99) mg/dL Calcium 7.8 L (8.4-10.2) mg/dL Current Medications Generic Name Dose Route Start Last Admin Trade Name Freq PRN Reason Stop Dose Admin Hydrocodone Bitart/Acetaminophen 1 each 09/02/23 14:53 09/07/23 06:11 Hydrocodone/Apap 7.5-325mg 1 Each Tab PO 1 each Q6HR PRN Administration Pain Albuterol/Ipratropium 3 ml 09/05/23 20:00 09/07/23 08:12 Ipratropium-Albuterol 3 Ml Neb INHALATION 3 ml RT-QID FAB Administration Albuterol/Ipratropium 3 ml 09/05/23 16:15 Ipratropium-Albuterol 3 Ml Neb INHALATION RT-QID PRN Shortness Of Breath Or Wheezing Budesonide/Formoterol Fumarate 2 puff 09/07/23 08:00 09/07/23 08:11 Symbicort 160-4.5 Mcg Inhaler INHALATION 2 puff RT-BID FAB Administration Docusate Sodium 100 mg 08/29/23 12:00 09/07/23 08:09 Docusate 100 Mg Cap PO 100 mg BID FAB Administration Gabapentin 300 mg 09/04/23 16:00 09/07/23 08:09 Gabapentin 300 Mg Cap PO 300 mg TID FAB Administration Heparin Sodium (Porcine) 5,000 unit 09/04/23 00:00 09/07/23 08:07 Heparin Sodium,Porcine 5,000 Unit/Ml 1 Ml Vial SQ 5,000 unit Q8HR FAB Administration Hydromorphone HCl 1 mg 08/22/23 17:28 09/06/23 10:50 Hydromorphone 1 Mg/Ml 1 Ml Syringe IVP 1 mg Q3HR PRN Administration Severe Pain (Scale 7 to 10) Hydromorphone HCl 0.5 mg 08/22/23 17:28 09/07/23 08:09 Hydromorphone 0.5 Mg/0.5 Ml Syringe IVP 0.5 mg Q3HR PRN Administration Moderate Pain (Scale 4 to 6) Vancomycin HCl 1,000 mg/ 250 mls @ 125 mls/hr 09/05/23 16:00 09/07/23 01:07 Sodium Chloride IVPB 125 mls/hr Q16H FAB Administration Cefepime HCl 2 gm/ Sodium 100 mls @ 25 mls/hr 09/06/23 20:00 09/07/23 08:07 Chloride IVPB 25 mls/hr Q12H FAB Administration Protocol Melatonin 5 mg 08/28/23 19:57 09/04/23 19:55 Melatonin 5 Mg Tablet PO 5 mg HS PRN Administration Insomnia Miscellaneous Information 1 each 08/31/23 05:30 Magnesium Replacement Protocol 1 Each Misc MISCELLANE DAILY PRN Per Protocol Protocol Miscellaneous Information 0 each 09/07/23 15:00 Vancomycin Trough Due 1 Each Misc MISCELLANE 09/07/23 15:01 DIRECTED ONE Naloxone HCl 0.2 mg 08/22/23 17:28 Naloxone 0.4 Mg/Ml 1 Ml Vial IV Q2M PRN Opioid Reversal Ondansetron HCl 4 mg 08/22/23 17:28 Ondansetron 4 Mg/2 Ml Vial IVP Q8HR PRN Nausea And Vomiting Pantoprazole Sodium 40 mg 08/23/23 09:00 09/07/23 08:08 Pantoprazole 40 Mg/10 Ml Vial IV 40 mg DAILY FAB Administration Petrolatum 1 applic 08/28/23 09:41 Zinc Oxide Paste (Z-Guard) 1 Applic TOPICAL DAILY PRN Wound Healing Protocol Intake and Output 09/06/23 09/07/23 09/07/23 22:59 06:59 14:59 Intake Total 240 Balance 240 Intake: Oral 240 Other: Voiding Method Indwelling Catheter Indwelling Catheter Indwelling Catheter 09/07/23 08:00 09/06/23 08:13
--- NOTE | 2023-09-07 11:21 | P.PN ---
Subjective Progress Note Date: 09/07/23 Principal diagnosis: Peripheral arterial disease Patient seen and examined today as a follow-up. And continues to have left lower extremity pain. Patient was supposed to undergo left ocoxj-rzs-[id number] amputation yesterday however, while in preop anesthesia he had canceled the pro cedure and stated patient was in congestive heart failure. Consult to cardiology placed and patient was seen and did not feel patient had congestive heart failure. They did state patient is high risk for any surgical intervention due to multiple significant comorbidities but no sign of heart failure in this patient. Today patient overall no acute changes through the night. Multiple consultants following patient. Primary medical team has discussed with patient and family hospice as being an option and palliative care. Apparently they are not interested at this time. Objective - Vital Signs Vital signs: Vital Signs Temp 98.0 F 09/06/23 20:06 Pulse 74 09/07/23 03:36 Resp 16 09/07/23 03:36 BP 97/60 09/07/23 03:36 Pulse Ox 99 09/07/23 03:36 FiO2 21 08/27/23 20:23 Intake & Output 09/06/23 09/07/23 09/07/23 18:59 06:59 18:59 Intake Total 240 Balance 240 Intake: Oral 240 Other: Voiding Method Indwelling Catheter Indwelling Catheter # Voids 1 # Bowel Movements 1 - Exam General appearance: The patient is alert, oriented, appears in no acute distress. HET: Head is normocephalic and atraumatic. Pupils are equal and reactive. Neck: Supple. Heart: Regular. Lungs: Equal expansion, normal respiratory effort. Abdomen: Hepatomegaly, tenderness. Extremities: Bilateral upper extremity swelling. Left axillary incision is well-approximated. Bilateral lower extremity swelling with weeping, dressings intact. Left toes purple, mottled, cold. Left leg tender to palpation. Incisions clean dry and intact. Neurological: No focal deficits. - Labs CBC & Chem 7: 09/07/23 08:00 09/07/23 08:00 Labs: Abnormal Lab Results - Last 24 Hours (Table) 09/06/23 09/06/23 Range/Units 08: 08:13 WBC 15.4 H (3.8-10.6) k/uL RBC 2.63 L (3.80-5.40) m/uL Hgb 7.7 L (11.4-16.0) gm/dL Hct 25.5 L (34.0-46.0) % MCHC 30.2 L (31.0-37.0) g/dL RDW 19.1 H (11.5-15.5) % Neutrophils # 14.4 H (1.3-7.7) k/uL Lymphocytes # 0.5 L (1.0-4.8) k/uL Sodium 132 L (137-145) mmol/L BUN 24 H (7-17) mg/dL Calcium 7.8 L (8.4-10.2) mg/dL Microbiology - Last 24 Hours (Table) 09/05/23 08:46 Blood Culture - Preliminary Blood Assessment and Plan Assessment: 1. Left femoral and popliteal artery occlusive disease status post left axillary to femoral artery bypass with no improvement with blood flow or pain 2. Left lower extremity pain 3. Large liver mass with metastatic disease throughout the lungs 4. Acute kidney injury 5. History of DVT and pulmonary embolism Plan: 1. Hold Xarelto 2. Continue pain management. Gabapentin added for pain management 3. Continue with recommendations from oncology 4. Patient is status post left axillary to femoral bypass 5. Consult to cardiology, appreciate their recommendations 6. Tentative plan for left mupaz-avj-[id number] amputation 09/07/2023 7. Consult to anesthesia for clearance for left [id number]-gpz-[id number] amputation for tomorrow 8. N.p.o. after midnight 9. Discussed with patient there is a possibility that anesthesia may not clear her for amputation is not unreasonable to consider hospice care for patient with multiple comorbidities and suspected metastatic cancer. Patient is not interested in hospice at this time. Thank you for this consultation, we will continue to follow. The impression and plan of care has been dictated as directed. Dr. Portillo I performed a history and examination of this patient, discussed the same with the dictator. I agree with the dictator's note ,documented as a scribe. Any additional findings or plans will be noted.
--- NOTE | 2023-09-07 11:54 | P.PN ---
Subjective Progress Note Date: 09/07/23 Principal diagnosis: Acute kidney injury. This is a 73-year-old female patient with a known history of pulmonary embolism, DVT of the left leg, uterine cancer with previous hysterectomy, chronic obstructive pulmonary disease with chronic and ongoing tobacco dependence. She had presented here to the emergency room back on August 22, 2023 with complaints of left leg pain. She has had chronic pain and had previously had surgery 2 weeks prior to her arrival here. She also was known to have suspected liver cancer with metastasis and was waiting on an outpatient PET scan. CT scan of the abdomen did reveal a post femoral-femoral bypass changes with fluid collection around the graft. There is a large hepatic mass with metastatic disease throughout the lungs. Similar infrarenal abdominal aortic aneurysm from previous scan in December 2022. She did have a liver biopsy here on August 25, 2023 that revealed necrotic cellular material suggestive of necrotic neoplasm but insufficient for diagnosis due to lack of viable tissue. We were consulted today for possible lung biopsy. 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 Her Xarelto is on hold and they are planning for axillofemoral bypass grafting on 09/01/2023. She is seen today in consultation on the regular medical floor. She is currently sitting up in bed. She is having quite a bit of musculoskeletal pain. She is also having quite a bit of left lower extremity pain. She is maintaining O2 saturations in the 90s on room air. She is afebrile. Hemodynamically stable. She denies any worsening shortness of breath, cough or congestion. No hemoptysis. The patient is seen today August 31, 2023 in follow-up on the regular medical floor. She is currently sitting up in bed having breakfast. Awake and alert in no acute distress. Maintaining O2 saturations in the 90s on room air. Ultrasound of the chest revealed small bilateral pleural effusions with 2.8 cm fluid on the right and 1.9 cm on the left. Not marked for thoracentesis. She is status post 2 units of packed red blood cells this admission. Current hemoglobin 8.0. Platelets 227. White count 14.2. Sodium 134. Potassium 4.0. Bicarb 24. BUN 17. Creatinine 0.7. Glucose 80. She remains on cefazolin. Normal saline at 50 MLS per hour. The patient is seen today September 01, 2023 in follow-up on the regular medical floor. She is currently resting in bed. Awake and alert in no acute distress. Maintaining O2 saturations in the mid 90s on room air. She is afebrile. Hemodynamically stable. Planning for an axillobifemoral bypass today with vascular surgery. She is status post 2 units of packed red blood cells this a dmission. Current hemoglobin 8.3. Platelets 193. White count 16.6. Sodium 131. Potassium 4.5. Bicarb 22. BUN 22. Creatinine 0.64. Glucose 88. Remains on cefazolin. Continued on bronchodilators. The patient is seen today September 02, 2023 in follow-up on the right on the selective care unit. She is awake and alert in no acute distress. She did undergo a left axillary to femoral bypass grafting yesterday. Her left lower extremity still quite discolored. Still having pain. Pulse is absent. She is status post 3 units of packed red blood cells this admission. Current hemoglobin 9.1. Platelets 186. White count 22.9. Sodium 132. Potassium 3.9. Bicarb 18. BUN 24. Creatinine 0.74. Glucose 71. She is currently maintaining good O2 saturations in the 90s on 4 L/min per nasal cannula. Afebrile. Hemodynamically stable. She is continued on cefazolin. The patient is seen today September 03, 2023 in follow-up on the selective care unit. She is currently resting in bed. Awake and alert in no acute distress. Still with significant left lower extremity pain. No pedal or posterior tibial pulses palpable. Leg remains very discolored cool to touch and mottled. She denies any worsening shortness of breath, cough or congestion. Chest x-ray continues to show evidence of COPD with irregular and patchy infiltrate/pneumonia throughout the mid and lower lungs. Nodular appearances raises the possibility of metastatic disease. She is status post 3 units of packed red blood cells this admission. Current hemoglobin 7.7. Platelets 160. White count 17.4. Sodium 133. Potassium 3.9. Bicarb 23. BUN 23. Creatinine 0.90. She is continued on bronchodilators. Remains on cefazolin. Dilaudid and Atco for pain control. The patient is seen today September 04, 2023 in follow-up on the selective care unit. She is currently resting in bed. Awake and alert in no acute distress. Still having discomfort in the left lower extremity. He is currently maintaining O2 saturations in the 90s on 4 L/min per nasal cannula. She is afebrile. Hemodynamically stable. White count 19.6. Hemoglobin 8.5. Platelets 198. Sodium 131. Potassium 4.1. Bicarb 24. BUN 20. Creatinine 0.70. Glucose 87. She remains on cefazolin. Heparin for DVT prophylaxis. Continued on bronchodilators. Pain medication in the form of Dilaudid and Atco. Progress note dated September 05, 2023. 73-year-old female seen today in room 379. The patient is going for surgery, on the left lower extremity, tomorrow. Currently, the patient is on 3 L of oxygen by nasal cannula. She continues on vancomycin, and cefepime. Current laboratory data includes a white count of 21.2, hemoglobin 8.9, hematocrit 29.5, and a platelet count of 237,000. Sodium 132, potassium 3.7, chlorides 106, CO2 22, BUN 20, creatinine 0.71. Glucose is 109. AST is 53. Alkaline phosphatase is 423. C-reactive protein is 33.6. N-terminal proBNP is 1440. Albumin is 1.6. X-rays consistent with COPD, and slight worsening of the infiltrates, in the right greater than left basilar areas. Progress note dated September 06, 2023. 73-year-old female seen today in room 379. The patient is scheduled to have an amputation of the left lower extremity, sometime later today. The patient continues on oxygen at 3 L. The patient continues on antibiotics in the form of cefepime, and vancomycin. She has no new complaints today. Current labs include a white count 15.4, hemoglobin 7.7, hematocrit 25.5, and a platelet count of 151,000. Sodium 132, potassium 3.7, chlorides 106, CO2 24, BUN 24, and creatinine 0.84. Calcium is 7.8. Magnesium is 1.9. Procalcitonin level from yesterday, was 1.25. Progress note dated September 07, 2023. 73-year-old female, seen in room 379. The patient continues on 4 L of oxygen. Her antibiotics include vancomycin and cefepime. She apparently was scheduled to have an amputation of the left lower extremity, done yesterday, but anesthesia, thought the patient was in acute CHF, and canceled the surgery. The patient in my opinion, needs to have the amputation first, recover from that, before any contemplation is given to a lung biopsy. Delaying the lung biopsy for a week or 10 days or so, or even longer, would not change the prognosis. White count of 16.6, hemoglobin 7.1, hematocrit 23.6, and platelet count 152,000. Sodium 132, potassium 4, chlorides 108, CO2 23, BUN 30, creatinine 1.08. Calcium is 8.0. Blood cultures are currently negative. Chest x-ray from yesterday shows changes of COPD, with numerous of bilateral masslike and nodular densities, and some residual airspace disease at the lung bases. Objective - Vital Signs Vital signs: Vital Signs Temp 97.9 F 09/07/23 07:55 Pulse 88 09/07/23 08:39 Resp 20 09/07/23 07:55 BP 107/61 09/07/23 07:55 Pulse Ox 95 09/07/23 07:55 FiO2 21 08/27/23 20:23 Intake & Output 09/06/23 09/07/23 09/07/23 18:59 06:59 18:59 Intake Total 240 240 Output Total 400 Balance 240 -160 Intake: Oral 240 240 Output: Urine 400 Other: Voiding Method Indwelling Catheter Indwelling Catheter Indwelling Catheter # Voids 1 # Bowel Movements 1 - Exam No acute distress, oriented 3. Patient is currently on 4 L of oxygen by nasal cannula. HEENT examination is grossly unremarkable. Mucous membranes are moist. No oral lesions. Neck supple. Full range of motion. No adenopathy thyromegaly or neck vein distention. Cardiovascular examination reveals regular rhythm rate. S1-S2 normal. No S3 or S4. No discernible murmur noted. Heart sounds are distant. Heart rate 88 bpm. Lungs reveal clear breath sounds. Breath sounds are equal bilaterally. No adventitious lung sounds including wheezes rhonchi or crackles. Saturations are 95% on 4 L. Abdomen soft bowel sounds are heard. No masses or tenderness. Extremities are intact. Bilateral lower extremity edema, left greater than right, with multiple areas of ecchymoses.. Skin reveals lower extremity ecchymoses. Neurologic examination is brief but nonfocal. - Labs CBC & Chem 7: 09/07/23 08:00 09/07/23 08:00 Labs: Abnormal Lab Results - Last 24 Hours (Table) 09/07/23 09/07/23 Range/Units 08:00 08:00 WBC 16.6 H (3.8-10.6) k/uL RBC 2.43 L (3.80-5.40) m/uL Hgb 7.1 L (11.4-16.0) gm/dL Hct 23.6 L (34.0-46.0) % MCHC 30.2 L (31.0-37.0) g/dL RDW 19.1 H (11.5-15.5) % Neutrophils # 15.5 H (1.3-7.7) k/uL Lymphocytes # 0.5 L (1.0-4.8) k/uL Sodium 132 L (137-145) mmol/L Chloride 108 H (98-107) mmol/L BUN 30 H (7-17) mg/dL Creatinine 1.08 H (0.52-1.04) mg/dL Calcium 8.0 L (8.4-10.2) mg/dL Microbiology - Last 24 Hours (Table) 09/05/23 08:46 Blood Culture - Preliminary Blood Assessment and Plan Assessment: Left leg pain, swelling and discoloration secondary to occlusion of the left superficial femoral artery extending from its origin to the popliteal artery. Reconstitution with poor visualization of the anterior posterior tibial arteries. Status post left axillobifemoral bypass grafting September 01, 2023. Will most likely need amputation per vascular surgery. Liver mass with biopsy on 08/25/2023 revealing fragments of necrotic cellular material suggestive of necrotic neoplasm, insufficient for diagnosis due to lack of viable tissue. Right apical masslike density. Scattered pulmonary nodules mid and lower lung beatty. Patchy basilar infiltrates. Small right effusion. Suspect metastatic disease. Recent surgery on 08/04/2023 with left common femoral thromboendarterectomy for occlusive disease. History of DVT/PE. History of abdominal aortic aneurysm. Chronic and ongoing tobacco dependence. Anorexia/cachexia syndrome with a BMI of 23.4 kg/m. Plan: Plan dated September 05, 2023. The patient is anticipated to have a left lower extremity amputation tomorrow, September 06, 2023. Labs, x-rays, medications are reviewed. The patient remains on antibiotics in the form of vancomycin and cefepime. The patient continues on oxygen at 3 L. The patient is not receiving any IV fluids at this time. We will continue to follow the patient, make recommendations along the way. Prognosis is guarded. Plan dated September 06, 2023. The patient is planning to have an amputation sometime later today. The patient continues on vancomycin and cefepime. The patient is on 3 L of oxygen. Labs, x-rays, medications are reviewed. The patient's overall prognosis remains very guarded. We will continue to follow, make recommendations along the way. Plan dated September 07, 2023. The patient is seen today in room 379. The amputation, of her left leg, was canceled by anesthesia yesterday, because of concerns of heart failure. The patient is currently on 4 L of oxygen. She continues on vancomycin and cefepime. Apparently now the plan is to do the amputation tomorrow. The lung biopsy on this patient, can wait, till after the amputation, and after she is a bit more stable. Additional recommendations and suggestions are forthcoming. Labs, x-rays, medications are reviewed. Prognosis is poor. Time with Patient: Less than 30
--- NOTE | 2023-09-07 14:31 | P.PN ---
Subjective Progress Note Date: 09/06/23 Principal diagnosis: Reason for follow-up is leukocytosis Patient is a 73-year-old female with a past medical history significant for COPD DVT pneumonia PE patient patient initial presentation with the leg pain and also have swelling and discoloration to the left foot status post bypass and did have a persistent elevated white count prompted this consultation. On today's visit that is 09/06/2023, Patient is afebrile patient is currently on 4 L nasal cannula oxygen and breathing slightly comfortably, the patient denies any chest pain or worsening cough, the patient denies any nausea vomiting did not have any abdominal pain and no diarrhea, still complaining of pain to the left foot area Patient white count is down to 15.4, creatinine 0.84, procalcitonin was 1.25 CRP 33.6 Objective - Vital Signs Vital signs: Vital Signs Temp 97.7 F 09/06/23 11:45 Pulse 86 09/06/23 13:20 Resp 18 09/06/23 11:45 BP 115/75 09/06/23 11:45 Pulse Ox 92 L 09/06/23 11:45 FiO2 21 08/27/23 20:23 Intake & Output 09/05/23 09/06/23 09/06/23 18:59 06:59 18:59 Intake Total 600 Output Total 1600 1275 Balance -1000 -1275 Intake: Oral 600 Output: Urine 1600 1275 Other: Voiding Method Indwelling Catheter Indwelling Catheter Indwelling Catheter # Voids 1 # Bowel Movements 1 - Exam GENERAL DESCRIPTION: An elderly female lying in bed in no distress RESPIRATORY SYSTEM: Unlabored breathing , coarse breath sounds anteriorly HEART: S1 S2 regular rate and rhythm , ABDOMEN: Soft , no tenderness EXTREMITIES: Left foot discoloration and swelling foul-smelling drainage - Labs CBC & Chem 7: 09/07/23 08:00 09/07/23 08:00 Labs: Abnormal Lab Results - Last 24 Hours (Table) 09/05/23 09/06/23 09/06/23 Range/Units 08:46 08:13 08:13 WBC 15.4 H (3.8-10.6) k/uL RBC 2.63 L (3.80-5.40) m/uL Hgb 7.7 L (11.4-16.0) gm/dL Hct 25.5 L (34.0-46.0) % MCHC 30.2 L (31.0-37.0) g/dL RDW 19.1 H (11.5-15.5) % Neutrophils # 14.4 H (1.3-7.7) k/uL Lymphocytes # 0.5 L (1.0-4.8) k/uL Sodium 132 L (137-145) mmol/L BUN 24 H (7-17) mg/dL Calcium 7.8 L (8.4-10.2) mg/dL Procalcitonin 1.25 H (0.02-0.09) ng/mL Microbiology - Last 24 Hours (Table) 09/02/23 14:46 Blood Culture - Preliminary Blood Assessment and Plan (1) Leukocytosis Current Visit: Yes Status: Acute Code(s): D72.829 - ELEVATED WHITE BLOOD CELL COUNT, UNSPECIFIED SNOMED Code(s): 626468047 Plan: 1patient with elevated white count and this patient presented to the hospital with the left lower extremity pain patient did have a bypass surgery to the left lower extremity x 2 with the last procedure being on 09/01/2023 for left axillary femoral bypass graft patient did have persistent ischemia to the left lower extremity and pain and is being considered for amputation with elevated white count could be related to underlying ischemia and necrosis to the left foot however the patient also have a cough and is bringing some sputum possible component of pneumonia not entirely excluded less likely though 2-patient did have elevated CRP procalcitonin is mildly elevated 1.25 sputum not collected blood cultures pending 3- patient to continue with cefepime and vancomycin as white count is trending down and will monitor closely Dictation was produced using [employer] dictation software. please excuse any grammatical, word or spelling errors. Time with Patient: Less than 30
--- NOTE | 2023-09-07 14:33 | P.PN ---
Subjective Progress Note Date: 09/07/23 Principal diagnosis: Reason for follow-up is leukocytosis Patient is a 73-year-old female with a past medical history significant for COPD DVT pneumonia PE patient patient initial presentation with the leg pain and also have swelling and discoloration to the left foot status post bypass and did have a persistent elevated white count prompted this consultation. On today's visit that is 09/07/2023, patient has been afebrile, patient is breathing slightly comfortably and is currently on 4 L nasal cannula oxygen, patient denies having any significant cough or sputum production, no chest pain, patient denies nausea vomiting or diarrhea and no abdominal pain patient still complaining of pain to the left flank area. Patient white count slightly up to 16.6 today, creatinine 1.08, blood cultures pending Objective - Vital Signs Vital signs: Vital Signs Temp 97.9 F 09/07/23 07:55 Pulse 86 09/07/23 12:42 Resp 20 09/07/23 07:55 BP 107/61 09/07/23 07:55 Pulse Ox 95 09/07/23 07:55 FiO2 21 08/27/23 20:23 Intake & Output 09/06/23 09/07/23 09/07/23 18:59 06:59 18:59 Intake Total 240 240 Output Total 400 Balance 240 -160 Intake: Oral 240 240 Output: Urine 400 Other: Voiding Method Indwelling Catheter Indwelling Catheter Indwelling Catheter # Voids 1 # Bowel Movements 1 - Exam GENERAL DESCRIPTION: An elderly female lying in bed in no distress RESPIRATORY SYSTEM: Unlabored breathing , coarse breath sounds anteriorly HEART: S1 S2 regular rate and rhythm , ABDOMEN: Soft , no tenderness EXTREMITIES: Left foot discoloration and swelling foul-smelling drainage - Labs CBC & Chem 7: 09/07/23 08:00 09/07/23 08:00 Labs: Abnormal Lab Results - Last 24 Hours (Table) 09/07/23 09/07/23 Range/Units 08:00 08:00 WBC 16.6 H (3.8-10.6) k/uL RBC 2.43 L (3.80-5.40) m/uL Hgb 7.1 L (11.4-16.0) gm/dL Hct 23.6 L (34.0-46.0) % MCHC 30.2 L (31.0-37.0) g/dL RDW 19.1 H (11.5-15.5) % Neutrophils # 15.5 H (1.3-7.7) k/uL Lymphocytes # 0.5 L (1.0-4.8) k/uL Sodium 132 L (137-145) mmol/L Chloride 108 H (98-107) mmol/L BUN 30 H (7-17) mg/dL Creatinine 1.08 H (0.52-1.04) mg/dL Calcium 8.0 L (8.4-10.2) mg/dL Microbiology - Last 24 Hours (Table) 09/05/23 08:46 Blood Culture - Preliminary Blood Assessment and Plan (1) Leukocytosis Current Visit: Yes Status: Acute Code(s): D72.829 - ELEVATED WHITE BLOOD CELL COUNT, UNSPECIFIED SNOMED Code(s): 926991892 Plan: 1patient with elevated white count and this patient presented to the hospital with the left lower extremity pain patient did have a bypass surgery to the left lower extremity x 2 with the last procedure being on 09/01/2023 for left axillary femoral bypass graft patient did have persistent ischemia to the left lower extremity and pain and is being considered for amputation with elevated white count could be related to underlying ischemia and necrosis to the left foot however the patient also have a cough and is bringing some sputum possible component of pneumonia not entirely excluded less likely though 2-patient did have elevated CRP procalcitonin is mildly elevated 1.25 sputum not collected blood cultures pending 3- patient is afebrile white count slight improvement patient has been considered for left leg amputation pending anesthesia clearance as per vascular surgery note for now to continue with cefepime and vancomycin and will monitor closely Dictation was produced using [employer] dictation software. please excuse any grammatical, word or spelling errors. Time with Patient: Less than 30
[2023-09-07 15:02] LABS: INR 1.1 (<1.2); Prothrombin Time 11.4 sec (10.0-12.5)
--- NOTE | 2023-09-07 15:36 | P.PN ---
Subjective Progress Note Date: 09/07/23 Patient is a 73-year-old female with a past medical history of DVT/PE on anticoagulation, peripheral vascular disease with left leg pain status post femoral to femoral bypass and left common femoral thromboendarterectomy on 08/04/2023, history of cholecystectomy on 07/11/2023 presents to ER with complaints of left lower extremity pain swelling and discoloration. Patient has been having chronic pain which has improved during the last 7 to 10 days. Patient does have history of liver mass and her physician is planning to get PET scan as an outpatient.. Patient has not seen oncology before. Otherwise patient denied any complaints of fever or chills. No nausea vomiting. No diarrhea. No cough or sputum production. No chest pain. EKG showed sinus rhythm. CT of the abdomen pelvis showed post femoral-femoral bypass changes with fluid collection around the graft. 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 Similar infrarenal abdominal aortic aneurysm back to at least 01/04/2023. Measuring 3.7 x 4.4 cm. Laboratory data showed WBC 18.8 hemoglobin 7.1, MCV 88.7 and platelets 473 INR 1.6, sodium 130 potassium 5.2 chloride 100 bicarb is 19 BUN 68, creatinine 2.03 and blood sugar 100 Total bili 1.9 AST 89 ALT 43 and alk phos 428 and albumin 2.5 and lipase level 977 08/24/2023 Patient is seen and evaluated in follow-up today being followed by vascular surgery along with oncology and interventional radiology was consulted for possible biopsy. Patient continued on empiric antibiotics with concerns of possible cellulitis of the lower extremities. Patient evaluated by vascular surgery as patient is recent femoropopliteal bypass and left common femoral thromboendarterectomy with no plans of revascularization interventions at this time. Patient okay to resume anticoagulation once cleared by oncology. Will hold on anticoagulation for now as hemoglobin is low and post 1 unit of PRBCs hemoglobin is 7.7 today. Discussing possible biopsy of the liver and will hold on anticoagulation including holding subcutaneous heparin for now. Interventional radiology consulted and pending. Patient with significant weakness would recommend being evaluated by PT/OT therapy. Overall treatment plan discussed with patient and would like to receive treatment if available. W ill discuss further with oncology once biopsy is performed. 08/25/2023 Patient is seen in follow-up today currently n.p.o. scheduled to undergo ultrasound for possible liver biopsy with interventional radiology. Patient maintained on antibiotics as severe and patient is maintained on Dilaudid. Will also add Sublette for breakthrough pain as patient reports 10/10 on the pain scale. Vascular surgery evaluated the patient with no plans of revascularization or surgical intervention on that left lower extremity. No contraindication to resume anticoagulation and Xarelto is being resumed. Patient is afebrile with no reports of chest pain or shortness of breath. Patient is currently wearing 2 L although does not normally wear oxygen outpatient. Encouraged oral intake and increased activity as tolerated. Patient to undergo biopsy and awaiting pathology as there is concerns of metastasis from the lungs as well. Overall prognosis is poor and guarded left at this time. 08/26/2023 Patient is resting in the bed. Awake alert and oriented x 3. No complaints of chest pain or shortness of breath. Patient still having left lower extremity discoloration of the toes. Swelling is about the same. Right lower extremity swelling did improve. Patient is s/p liver biopsy. Continued on anticoagulation with Xarelto. Patient is on antibiotics, cefazolin. Laboratory showed WBC 13.4 hemoglobin 7.7 and platelets 217 Sodium 130 potassium 3.5 chloride 101 bicarb is 24 BUN 25 and creatinine 0.93 and blood sugar 103 and calcium 7.8 and magnesium 2.2 08/27/2023 Patient is resting in the bed. Awake alert and oriented x 3. No nausea vomiting abdominal pain or diarrhea. Currently on room air. Still having left lower extremity discoloration of the toes and swelling. Hemoglobin 6.9 this morning and is being transfused with 1 unit of PRBC Other laboratory data showed WBC trending down to 12.8 hemoglobin 6.9 and platelets 218 sodium 134 potassium 4.3 chloride 103 bicarb is 23.5 BUN 19 and creatinine 1.0 and blood sugar 96 and calcium 8.1. Patient is on anticoagulation with Xarelto and also antibiotics cefazolin. Pain is controlled. 08/28/2023 Patient is seen and evaluated in follow-up today with multiple medical consultations following including vascular surgery and oncology. Patient continues to have a white count although is trending down and will follow-up with repeat labs. Patient is status post biopsy of the liver which is pending. Patient continues to report significant pain in the left lower extremity with inability to ambulate and was evaluated by vascular surgery with no plans of revascularization and also discussed with the patient about possible amputation for palliative pain relief as there are no plans or availabilities for further surgical intervention on that left lower extremity. Anticoagulation resumed. Patient remains on cefazolin with concerns of possible cellulitis of the lower extremities. Recommend repeat labs in the a.m. and continued PT/OT therapy 08/29/2023 Patient is seen in follow-up this morning with vascular and oncology following. Patient continues to report significant 10/10 pain of the left lower extremity and repeat CT angiogram being ordered. Patient underwent biopsy of the liver although suggestive of metastatic disease, specimen was insufficient for diagnosis. Oncology discussing looking into CT chest to evaluate the lung nodul es for possible biopsy and/or bronchoscopy. Patient is afebrile, white count remains slightly elevated, no reports of chest pain or shortness of breath and patient is on room air. Patient continues on antibiotics with concerns of lower extremity cellulitis as well. Encouraged to increase activity as tolerated although patient reports unable to stand due to the pain on the left leg. Recommend PT/OT therapy daily. 08/30/2023 Patient is seen and evaluated today with vascular surgery following and patient underwent CT angio runoff with plans for vascular intervention on Monday as the graft on the left is down and patient reports continued significant left leg pain and inability to ambulate or place any weight on it due to the pain. Multiple medications including Dilaudid, Sublette, gabapentin have been added with minimal pain relief. Patient also had CT chest with multiple lung nodules noted and oncology following recommending pulmonary consultation for possible bronchoscopy with biopsy for confirmation of diagnosis. Patient maintained on Xarelto and will be placed on hold for surgical intervention for Monday. Patient is afebrile with no reported chest pain or shortness of breath. Patient not eating very much she reports does not have much of an appetite. Patient is getting anxious about overall treatment plan moving forward. Overall prognosis is extremely poor and guarded. Patient remains full code 08/31/2023 Patient is seen in follow-up this morning continues to report severe left lower extremity leg pain with vascular surgery following plans of revascularization and evaluation of the graft on 09/01/[address] Almanza. Patient will be n.p.o. at midnight. Patient was evaluated by pulmonary recommending revascularization prior to bronchoscopy and/or biopsy of the lung nodules. Patient is currently sitting up in the bed on room air and denies any chest pain or shortness of breath. Patient reports is eating and tolerating with no reported nausea or vomiting. 09/01/2023 Patient is seen and evaluated in follow-up this morning currently n.p.o. as patient is scheduled to undergo revascularization intervention with Dr. Almanza this morning. Being taken to the OR currently. Vital signs are stable and we will follow-up and await surgical report. 09/02/2023 Patient is seen in follow-up today on the stepdown unit. Patient underwent left axillary to femoral bypass yesterday secondary to a failed femoral to femoral bypass. Patient was seen in follow-up with vascular surgery today who per patient has discussed possible surgical amputation of the left leg. The left foot today is blackened no pulse noted. Additionally patient's abdomen remains distended. Pulmonary following and recommending bronchoscopy versus thoracentesis for diagnostic measures regarding the right upper lobe mass. Patient is off Xarelto at this time. Her white blood cell count is elevated at 22.9, hemoglobin 9.1., Sodium 132, renal function is stable BUN of 24, creatinine of 0.74. She remains on IV cefazolin. 09/03/2023 Patient is seen in follow-up today on the stepdown unit. She continues to report significant pain to the left lower extremity currently rating it 8 out of 10. She is maintained on a combination of IV Dilaudid every 3 hours, gabapentin, Sublette 7.5. Chest x-ray yesterday afternoon shows similar findings of COPD with irregular patchy infiltrates/pneumonia throughout the mid and lower lungs this is a nodular appearance raises the possibility of either concurrent metastatic disease or an atypical fungal mycobacterial infections. A trace right pleural effusion persists. Patient is seen in follow-up today by vascular surgery with recommendations for possible amputation and again patient is in agreements with this. Discussed metastatic liver disease with patient and again patient is wanting to continue with current treatment plan and for treatment even if it is palliative. Patient is not ready for hospice or comfort measures at this time. Plans for biopsy are on hold until patient finishes treatment for the ischemic limb. Patient understanding of this. Patient continues on IV cefazolin. Her blood work is improving white blood cell count down to 17.4, hemoglobin 7.7, sodium 133, BUN of 23, creatinine of 0.90. Magnesium 1.8. 09/04/2023 Patient is followed up today on the medical unit. Patient continues to report significant pain to the left lower extremity mainly of the foot and is rating it a 10 out of 10. She continues on IV and oral pain medication. Patient was reevaluated by vascular surgery recommending to hold the Xarelto at this time and patient is scheduled to undergo left [id number] amputation on Wednesday, September 06, 2023. She remains on oxygen nasal cannula at 4 L. White blood cell count of 19.6 today, hemoglobin 8.5, sodium 133, BUN of 20, creatinine of 0.70, magnesium 1.7. Chest X-ray from a few days ago continues to show a trace right pleural effusion and sodium down to 131 and patient has been continued on IV fluids. 09/05/2023 Patient is seen in follow-up today on the stepdown unit. Family at the bedside. Patient is scheduled to undergo left-sided [id number] amputation on . Patient continues to report significant pain and discomfort to the left foot and leg. On IV and oral pain medications. Xarelto remains on hold. Chest xray follow up today reveals right greater than left greater bibasilar opacities. Bilateral areas of nodularity redemonstrated compatible with findings seen on CT chest 08/29/23. Correlate for metastatic disease versus atypical fungal/mycobacterial infections. ID was consulted due to the persistent leukocytosis antibiotics have been adjusted patient is on IV vancomycin and IV cefepime. White blood cell count 21.2 today, hgb 8.9, sodium 132, BUN 20, creatinine 0.71, magnesium 1.9. 09/06/2023 Patient is followed up today in the stepdown unit. She is pending surgical intervention for her ischemic leg she will undergo a left-sided [id number] amputation today. Patient continues to report pain to the left leg currently 8 out of 10. Patient has an indwelling catheter in place she has been leaking urine around the Benjamin discussed with nursing and they will plan on addressing this and changing the bag out today. She received a dose of IV Lasix yesterday reports that she was breathing much better. Her white blood cell count is 15.4, hemoglobin 7.7, sodium of 132, potassium of 3.7, BUN of 24, creatinine of 0.84. Magnesium 1.9. Procalcitonin level of 1.25. 09/07/2023 Patient is evaluated today family at the bedside. Cardiology was consulted for surgical clearance for the left AKA. Anesthesia to also follow up with the [facility] today. Limited echocardiogram was done showing probably normal LV systolic function. No significant valvular disease. EF is 55 to 60%. Patient received a second dose of IV lasix. Follow up chest xray reveals; COPD with numerous bilateral masslike and nodular densities. Residual but improving airspace disease at the lung bases. Medications reviewed. Review of systems: Constitutional: No reports of fatigue, fever, or chills Cardiovascular: No reports of chest pain or palpitations Respiratory: Reports shortness of breath no cough GI: No reports of nausea, vomiting, or diarrhea, Reports abdominal pain and distention. : No reports of dysuria or retention Neurovascular: reports of generalized weakness, reports continued left lower extremity pain 02/02 All medications have been reviewed PHYSICAL EXAMINATION: Patient is lying in the bed , elderly appearing, thin built, well-developed, awake alert and oriented.. HEENT: Normocephalic. Neck is supple. Pupils reactive. Nostrils clear. Oral cavity is moist. Neck reveals no JVD, carotid bruits, or thyromegaly. CHEST EXAMINATION: Trachea is central. Symmetrical expansion. Bibasilar diminished sounds. Scattered ronchi. CARDIAC: Normal S1, S2 with no gallops. No murmurs ABDOMEN: Soft. Tender on palpation, bowel sounds normal. Large firm liver noted on the right. No abdominal bruits. Extremities: Bilateral lower extremity swelling with skin dislocation/mottling of the left lower extremity. Neurologically awake, alert, oriented x3. Patient is able to move all extremities.. No focal deficits noted. diffusely weak Skin: No rash or skin lesions. Cyanosis noted on lower extremities as well as upper extremities, more so on the right hand; left foot is discolored and blackened extending up to the ankle. Skin tear on coccyx. Psychiatric: Cooperative. Non-suicidal, anxious. Musculoskeletal: No joint swelling or deformity. Normal range of motion. Assessment: -Bilateral lower extremity pain, swelling with recent history of femorofemoral bypass and left common femoral thromboendarterectomy with graft malfunction, S/P revascularization on September 01 with left axillary to femoral bypass. Plan for Left AKA. -Possible bilateral lower extremity cellulitis, persistent leukocytosis antibiotics have been changed to IV cefepime and IV vancomycin with ID consultation -Acute kidney injury likely prerenal, improved. 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 Concern for volume overload patient, improved s/p dose of IV lasix. 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 Patient is scheduled for outpatient PET scan. Status post liver biopsy 08/25/2023, likely metastatic disease although specimen was insufficient for diagnosis -Abdominal aortic aneurysm stable from recent study -Currently everyday smoker -Moderate protein calorie malnutrition with a BMI of 23.4 -Hx of uterine cancer with hysterectomy GI prophylaxis DVT prophylaxis on Xarelto Full code Plan: -Patient is continued on antibiotics, ID consulation in place; antibiotics have been adjusted to vancomycin and cefepime. -Xarelto remains on hold status post revascularization, patient is now scheduled to undergo left AKA pending clearance from anesthesia. -Oncology following status post biopsy and there was noted necrotic tissue and likely metastatic disease although specimen was insufficient for diagnosis. -Pulmonary has evaluated the patient recommending waiting bronchoscopy with biopsy until left lower extremity revascularization is done and likely will be done on an outpatient basis -Continue with pain management. Patient continues to report severe pain with Dilaudid and Sublette, gabapentin. -PT/OT following patient will require extensive rehabilitation after limb amputation. Overall prognosis remains poor. -Prognosis is extremely poor guarded with multiple medical problems and comorbid conditions. Patient currently remains a full code and would like to receive treatment if there are options available. Discussed with patient and she is not ready for comfort care or hospice measures. Family at the bedside today and updated on plan of care. -Remain off IV fluids, Echocardiogram done and reviewed and cardiology consulted for there was no sign of heart failure in this patient. Cardiology has felt patient is a high risk for any surgical intervention due to multiple significant comorbidities. -Patient is a high surgical risk but would consider surgery as urgent and necessary due to the ischemic limb. -Repeat labs in the AM. The impression and plan of care has been dictated by Marialuisa Montejo, Nurse Practitioner as directed. Dr. Lia MD I have performed a history and physical examination and medical decision making of this patient, discussed the same with the dictator, and agree with the dictators assessment and plan as written, documented as a scribe. Based on total visit time, I have performed more than 50% of this visit. Objective - Vital Signs Vital signs: Vital Signs Temp 97.9 F 09/07/23 07:55 Pulse 86 09/07/23 12:42 Resp 20 09/07/23 07:55 BP 107/61 09/07/23 07:55 Pulse Ox 95 09/07/23 07:55 FiO2 21 08/27/23 20:23 Intake & Output 09/06/23 09/07/23 09/07/23 18:59 06:59 18:59 Intake Total 240 350 Output Total 400 Balance 240 -50 Intake: Oral 240 350 Output: Urine 400 Other: Voiding Method Indwelling Catheter Indwelling Catheter Indwelling Catheter # Voids 1 # Bowel Movements 1 - Labs CBC & Chem 7: 09/07/23 08:00 09/07/23 08:00 Labs: Abnormal Lab Results - Last 24 Hours (Table) 09/07/23 09/07/23 Range/Units 08:00 08:00 WBC 16.6 H (3.8-10.6) k/uL RBC 2.43 L (3.80-5.40) m/uL Hgb 7.1 L (11.4-16.0) gm/dL Hct 23.6 L (34.0-46.0) % MCHC 30.2 L (31.0-37.0) g/dL RDW 19.1 H (11.5-15.5) % Neutrophils # 15.5 H (1.3-7.7) k/uL Lymphocytes # 0.5 L (1.0-4.8) k/uL Sodium 132 L (137-145) mmol/L Chloride 108 H (98-107) mmol/L BUN 30 H (7-17) mg/dL Creatinine 1.08 H (0.52-1.04) mg/dL Calcium 8.0 L (8.4-10.2) mg/dL Microbiology - Last 24 Hours (Table) 09/05/23 08:46 Blood Culture - Preliminary Blood Assessment and Plan Time with Patient: Less than 30
[2023-09-07] MEDS: VANCOMYCIN TROUGH DUE 1 EACH MISC MISCELLANE ONE (16:23)
--- NOTE | 2023-09-07 16:38 | P.PN ---
Subjective Progress Note Date: 09/07/23 Principal diagnosis: liver and lung lesions In follow-up today patient still has pretty significant leg pain, still pending amputation. She is also complaining of some left upper quadrant pain, her abdomen is very sensitive. She is not eating or drinking very well. She is hav ing difficulty being active in any way because of pain and generalized weakness. Objective - Vital Signs Vital signs: Vital Signs Temp 97.9 F 09/07/23 07:55 Pulse 88 09/07/23 15:53 Resp 20 09/07/23 07:55 BP 107/61 09/07/23 07:55 Pulse Ox 95 09/07/23 07:55 FiO2 21 08/27/23 20:23 Intake & Output 09/06/23 09/07/23 09/07/23 18:59 06:59 18:59 Intake Total 240 350 Output Total 400 Balance 240 -50 Intake: Oral 240 350 Output: Urine 400 Other: Voiding Method Indwelling Catheter Indwelling Catheter Indwelling Catheter # Voids 1 # Bowel Movements 1 - Constitutional Constitutional Comment(s): Frail, weak. Looks much older than stated age General appearance: Present: cooperative, thin - EENT Eyes: Present: EOMI ENT: Present: hearing grossly normal - Respiratory Respiratory: bilateral: CTA - Cardiovascular Rhythm: regular Heart sounds: normal: S1, S2 - Gastrointestinal Gastrointestinal Comment(s): Abdomen is distended, tender to palpation, dullness percussed in the epigastric area, patient complains of discomfort with palpation, suspect hepatomegaly possibly even some mild splenomegaly. - Neurologic Neurologic: Present: CNII-XII intact - Musculoskeletal Musculoskeletal: Present: generalized weakness - Psychiatric Psychiatric: Present: A&O x's 3, appropriate affect, intact judgment & insight - Labs CBC & Chem 7: 09/07/23 08:00 09/07/23 08:00 Labs: Abnormal Lab Results - Last 24 Hours (Table) 09/05/23 09/07/23 09/07/23 Range/Units 08:46 08:00 08:00 WBC 16.6 H (3.8-10.6) k/uL RBC 2.43 L (3.80-5.40) m/uL Hgb 7.1 L (11.4-16.0) gm/dL Hct 23.6 L (34.0-46.0) % MCHC 30.2 L (31.0-37.0) g/dL RDW 19.1 H (11.5-15.5) % Neutrophils # 15.5 H (1.3-7.7) k/uL Lymphocytes # 0.5 L (1.0-4.8) k/uL Sodium 132 L (137-145) mmol/L Chloride 108 H (98-107) mmol/L BUN 30 H (7-17) mg/dL Creatinine 1.08 H (0.52-1.04) mg/dL Calcium 8.0 L (8.4-10.2) mg/dL Crossmatch See Detail Microbiology - Last 24 Hours (Table) 09/05/23 08:46 Blood Culture - Preliminary Blood Assessment and Plan (1) Liver lesion Current Visit: Yes Status: Acute Priority: High Code(s): K76.9 - LIVER DISEASE, UNSPECIFIED SNOMED Code(s): 876209007 (2) Lung mass Current Visit: Yes Status: Acute Priority: High Code(s): R91.8 - OTHER NONSPECIFIC ABNORMAL FINDING OF LUNG FIELD SNOMED Code(s): 886368062 (3) Anemia Current Visit: Yes Status: Acute Priority: High Code(s): D64.9 - ANEMIA, UNSPECIFIED SNOMED Code(s): 965827506 Plan: Liver mass, lung nudules -CT AP 07/21/2023 showed 10 x 14 cm ill-defined mass in the left liver that was not present on CTA abdomen on 01/04/[address]23. [address] to [address] Ad Gruber for evaluation but has yet to establish care. -PET CT was scheduled but, pt unable to get to. This will have to be rescheduled at a later date -On admit, CT AP without contrast revealed post femoral bypass changes with fluid collection around graft. Large hepatic mass measuring 18.1 x 12.5 cm, also reporting lung nodules. -08/24 she had liver biopsy pathology revealed necrotic cellular material suggestive of necrotic neoplasm, unfortunately insufficient for diagnosis. -AFP, CEA, and Ca 19-9 normal -Right upper lobe lung mass like consolidation as well as scattered pulmonary nodules throughout the lungs. Cavitary lesion in the right lower lung 5.1 x 3.8 cm. Masslike consolidation in the lung apex measuring 3.7 x 2.5 cm. Pulmonary has seen pt. Plans for biopsy outpt after pt has had AKA Anemia: -New onset earlier this year, progressive since Jun, persistent since admit. The patient is status post 3 units of PRBCs. She does have a response to transfusion but then her hemoglobin slowly drifts back down. This is likely because of acute infection and dilution from fluids. No reported bleeding. -Anemia workup did not reveal any deficiencies, most consistent with anemia of inflammation -Please transfuse for hgb < 7 or if symptomatic. 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 Doppler of bilateral lower extremities on 07/27/2023 revealed chronic appearing deep vein thrombosis within the left popliteal vein and left great saphenous vein. No acute DVT noted bilaterally -Currently pending clearance for AKA with Vascular Case was discussed today with Attending Nurse Practitioner as well as Nursing. Discussed concerning findings of liver mass and lung nodules with the patient and her granddaughter at the bedside. Having lesions in the liver and lungs is highly suspicious for malignancy. It is concerning that this represents a malignancy that has metastasized. This would unfortunately be stage IV disease that is treatable, but not curable. We are unable to discuss in further detail prognosis or treatment options until the primary has been identified. All questions were answered to her patient and granddaughter satisfaction. They understand the need for the amputation for comfort. They understand that no treatment for malignancy would begin until primary has been identified and she has had adequate healing from the surgery.
[2023-09-07] MEDS: HYDROmorphone 0.5 MG/0.5 ML SYRINGE IVP PRN (18:44)
[2023-09-07] MEDS: IPRATROPIUM-ALBUTEROL 3 ML NEB INHALATION PRN (21:34)
[2023-09-07] MEDS: HYDROmorphone 1 MG/ML 1 ML SYRINGE IVP PRN (21:51)
[2023-09-07] MEDS: VANCOMYCIN 1,000 MG in SODIUM CHLORIDE 0.9% 250 ML IVPB SCH (21:51)
[2023-09-08 01:17] LABS: Anisocytosis Slight; HCT 27.2 % (34.0-46.0); HGB 8.3 gm/dL (11.4-16.0); Hypochromasia Marked; MCH 29.4 pg (25.0-35.0); MCHC 30.6 g/dL (31.0-37.0); MCV 95.9 fL (80.0-100.0); Macrocytosis Slight; Mean Platelet Volume 9.1; Platelet Count 127 k/uL (150-450); Poikilocytosis Slight; RBC 2.84 m/uL (3.80-5.40); RDW 18.3 % (11.5-15.5); WBC 15.9 k/uL (3.8-10.6)
[2023-09-08 11:08] LABS: Anisocytosis Slight; Basophils % (A) 0 %; Eosinophils % (A) 0 %; HGB 8.2 gm/dL (11.4-16.0); Hypochromasia Marked; Lymphocytes # (A) 0.4 k/uL (1.0-4.8); Lymphocytes % (A) 3 %; MCH 29.2 pg (25.0-35.0); MCHC 30.2 g/dL (31.0-37.0); MCV 96.4 fL (80.0-100.0); Macrocytosis Slight; Mean Platelet Volume 9.6; Monocytes # (A) 0.4 k/uL (0-1.0); Monocytes % (A) 3 %; Neutrophils # (A) 11.1 k/uL (1.3-7.7); Neutrophils % (A) 93 %; Platelet Count 133 k/uL (150-450); Poikilocytosis Moderate; RBC 2.81 m/uL (3.80-5.40); RDW 18.6 % (11.5-15.5)
[2023-09-08 11:21] LABS: African American GFR (CKD) 48 (>60 ml/min/1.73 sqM); Anion Gap 3 mmol/L; Blood Urea Nitrogen 36 mg/dL (7-17); Calcium 7.8 mg/dL (8.4-10.2); Carbon Dioxide 23 mmol/L (22-30); Chloride 107 mmol/L (98-107); Glucose 77 mg/dL (74-99); Magnesium 1.9 mg/dL (1.6-2.3); Non-African American GFR(CKD) 42 (>60 ml/min/1.73 sqM); Potassium 3.7 mmol/L (3.5-5.1); Sodium 133 mmol/L (137-145)
--- NOTE | 2023-09-08 11:23 | P.PN ---
Subjective Progress Note Date: 09/08/23 Principal diagnosis: Acute kidney injury. This is a 73-year-old female patient with a known history of pulmonary embolism, DVT of the left leg, uterine cancer with previous hysterectomy, chronic obstructive pulmonary disease with chronic and ongoing tobacco dependence. She had presented here to the emergency room back on August 22, 2023 with complaints of left leg pain. She has had chronic pain and had previously had surgery 2 weeks prior to her arrival here. She also was known to have suspected liver cancer with metastasis and was waiting on an outpatient PET scan. CT scan of the abdomen did reveal a post femoral-femoral bypass changes with fluid collection around the graft. There is a large hepatic mass with metastatic disease throughout the lungs. Similar infrarenal abdominal aortic aneurysm from previous scan in December 2022. She did have a liver biopsy here on August 25, 2023 that revealed necrotic cellular material suggestive of necrotic neoplasm but insufficient for diagnosis due to lack of viable tissue. We were consulted today for possible lung biopsy. 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 Her Xarelto is on hold and they are planning for axillofemoral bypass grafting on 09/01/2023. She is seen today in consultation on the regular medical floor. She is currently sitting up in bed. She is having quite a bit of musculoskeletal pain. She is also having quite a bit of left lower extremity pain. She is maintaining O2 saturations in the 90s on room air. She is afebrile. Hemodynamically stable. She denies any worsening shortness of breath, cough or congestion. No hemoptysis. The patient is seen today August 31, 2023 in follow-up on the regular medical floor. She is currently sitting up in bed having breakfast. Awake and alert in no acute distress. Maintaining O2 saturations in the 90s on room air. Ultrasound of the chest revealed small bilateral pleural effusions with 2.8 cm fluid on the right and 1.9 cm on the left. Not marked for thoracentesis. She is status post 2 units of packed red blood cells this admission. Current hemoglobin 8.0. Platelets 227. White count 14.2. Sodium 134. Potassium 4.0. Bicarb 24. BUN 17. Creatinine 0.7. Glucose 80. She remains on cefazolin. Normal saline at 50 MLS per hour. The patient is seen today September 01, 2023 in follow-up on the regular medical floor. She is currently resting in bed. Awake and alert in no acute distress. Maintaining O2 saturations in the mid 90s on room air. She is afebrile. Hemodynamically stable. Planning for an axillobifemoral bypass today with vascular surgery. She is status post 2 units of packed red blood cells this a dmission. Current hemoglobin 8.3. Platelets 193. White count 16.6. Sodium 131. Potassium 4.5. Bicarb 22. BUN 22. Creatinine 0.64. Glucose 88. Remains on cefazolin. Continued on bronchodilators. The patient is seen today September 02, 2023 in follow-up on the right on the selective care unit. She is awake and alert in no acute distress. She did undergo a left axillary to femoral bypass grafting yesterday. Her left lower extremity still quite discolored. Still having pain. Pulse is absent. She is status post 3 units of packed red blood cells this admission. Current hemoglobin 9.1. Platelets 186. White count 22.9. Sodium 132. Potassium 3.9. Bicarb 18. BUN 24. Creatinine 0.74. Glucose 71. She is currently maintaining good O2 saturations in the 90s on 4 L/min per nasal cannula. Afebrile. Hemodynamically stable. She is continued on cefazolin. The patient is seen today September 03, 2023 in follow-up on the selective care unit. She is currently resting in bed. Awake and alert in no acute distress. Still with significant left lower extremity pain. No pedal or posterior tibial pulses palpable. Leg remains very discolored cool to touch and mottled. She denies any worsening shortness of breath, cough or congestion. Chest x-ray continues to show evidence of COPD with irregular and patchy infiltrate/pneumonia throughout the mid and lower lungs. Nodular appearances raises the possibility of metastatic disease. She is status post 3 units of packed red blood cells this admission. Current hemoglobin 7.7. Platelets 160. White count 17.4. Sodium 133. Potassium 3.9. Bicarb 23. BUN 23. Creatinine 0.90. She is continued on bronchodilators. Remains on cefazolin. Dilaudid and [place] for pain control. The patient is seen today September 04, 2023 in follow-up on the selective care unit. She is currently resting in bed. Awake and alert in no acute distress. Still having discomfort in the left lower extremity. He is currently maintaining O2 saturations in the 90s on 4 L/min per nasal cannula. She is afebrile. Hemodynamically stable. White count 19.6. Hemoglobin 8.5. Platelets 198. Sodium 131. Potassium 4.1. Bicarb 24. BUN 20. Creatinine 0.70. Glucose 87. She remains on cefazolin. Heparin for DVT prophylaxis. Continued on bronchodilators. Pain medication in the form of Dilaudid and [place]. Progress note dated September 05, 2023. 73-year-old female seen today in room 379. The patient is going for surgery, on the left lower extremity, tomorrow. Currently, the patient is on 3 L of oxygen by nasal cannula. She continues on vancomycin, and cefepime. Current laboratory data includes a white count of 21.2, hemoglobin 8.9, hematocrit 29.5, and a platelet count of 237,000. Sodium 132, potassium 3.7, chlorides 106, CO2 22, BUN 20, creatinine 0.71. Glucose is 109. AST is 53. Alkaline phosphatase is 423. C-reactive protein is 33.6. N-terminal proBNP is 1440. Albumin is 1.6. X-rays consistent with COPD, and slight worsening of the infiltrates, in the right greater than left basilar areas. Progress note dated September 06, 2023. 73-year-old female seen today in room 379. The patient is scheduled to have an amputation of the left lower extremity, sometime later today. The patient continues on oxygen at 3 L. The patient continues on antibiotics in the form of cefepime, and vancomycin. She has no new complaints today. Current labs include a white count 15.4, hemoglobin 7.7, hematocrit 25.5, and a platelet count of 151,000. Sodium 132, potassium 3.7, chlorides 106, CO2 24, BUN 24, and creatinine 0.84. Calcium is 7.8. Magnesium is 1.9. Procalcitonin level from yesterday, was 1.25. Progress note dated September 07, 2023. 73-year-old female, seen in room 379. The patient continues on 4 L of oxygen. Her antibiotics include vancomycin and cefepime. She apparently was scheduled to have an amputation of the left lower extremity, done yesterday, but anesthesia, thought the patient was in acute CHF, and canceled the surgery. The patient in my opinion, needs to have the amputation first, recover from that, before any contemplation is given to a lung biopsy. Delaying the lung biopsy for a week or 10 days or so, or even longer, would not change the prognosis. White count of 16.6, hemoglobin 7.1, hematocrit 23.6, and platelet count 152,000. Sodium 132, potassium 4, chlorides 108, CO2 23, BUN 30, creatinine 1.08. Calcium is 8.0. Blood cultures are currently negative. Chest x-ray from yesterday shows changes of COPD, with numerous of bilateral masslike and nodular densities, and some residual airspace disease at the lung bases. Progress note dated September 08, 2023. 73-year-old female seen in room 379. The patient continues on oxygen at 4 L. The patient is receiving saline at 10 cc an hour. She continues on cefepime and vancomycin. The patient is to go to the operating room today, for an amputation of the left leg. She was to go on Monday, but anesthesia felt that she was unstable, so the surgery was canceled. Current laboratory data includes a white count 12, hemoglobin 8.2, hematocrit 27, and a platelet count of 133,000. Blood cultures have been negative. No new x-rays to report. Objective - Vital Signs Vital signs: Vital Signs Temp 97.8 F 09/08/23 10:55 Pulse 94 09/08/23 10:55 Resp 20 09/08/23 08:00 BP 106/57 09/08/23 10:55 Pulse Ox 91 L 09/08/23 10:46 FiO2 21 08/27/23 20:23 Intake & Output 09/07/23 09/08/23 09/08/23 18:59 06:59 18:59 Intake Total 350 310 0 Output Total 400 500 Balance -50 -190 0 Intake: Oral 350 Blood Product 0 310 0 Unit 0 Rc Irr As1 Unit 0 310 [id number] Output: Urine 400 500 Other: Voiding Method Indwelling Catheter Indwelling Catheter Indwelling Catheter - Exam No acute distress, oriented 3. Patient is currently on 4 L of oxygen by nasal cannula. HEENT examination is grossly unremarkable. Mucous membranes are moist. No oral lesions. Neck supple. Full range of motion. No adenopathy thyromegaly or neck vein di stention. Cardiovascular examination reveals regular rhythm rate. S1-S2 normal. No S3 or S4. No discernible murmur noted. Heart sounds are distant. Heart rate 94 bpm. Lungs reveal clear breath sounds. Breath sounds are equal bilaterally. No adventitious lung sounds including wheezes rhonchi or crackles. Saturations are 92% on 4 L. Abdomen soft bowel sounds are heard. No masses or tenderness. Extremities are intact. Bilateral lower extremity edema, left greater than right, with multiple areas of ecchymoses. The foot, and distal portions of the leg, or purple/black. Skin reveals lower extremity ecchymoses. Neurologic examination is brief but nonfocal. - Labs CBC & Chem 7: 09/08/23 10:18 09/07/23 08:00 Labs: Abnormal Lab Results - Last 24 Hours (Table) 09/05/23 09/08/23 09/08/23 Range/Units 08:46 01:00 10:18 WBC 15.9 H 12.0 H (3.8-10.6) k/uL RBC 2.84 L 2.81 L (3.80-5.40) m/uL Hgb 8.3 L 8.2 L (11.4-16.0) gm/dL Hct 27.2 L 27.0 L (34.0-46.0) % MCHC 30.6 L 30.2 L (31.0-37.0) g/dL RDW 18.3 H 18.6 H (11.5-15.5) % Plt Count 127 L 133 L (150-450) k/uL Neutrophils # 11.1 H (1.3-7.7) k/uL Lymphocytes # 0.4 L (1.0-4.8) k/uL Crossmatch See Detail Microbiology - Last 24 Hours (Table) 09/02/23 14:46 Blood Culture - Final Blood 09/05/23 08:46 Blood Culture - Preliminary Blood Assessment and Plan Assessment: Left leg pain, swelling and discoloration secondary to occlusion of the left superficial femoral artery extending from its origin to the popliteal artery. Reconstitution with poor visualization of the anterior posterior tibial arteries. Status post left axillobifemoral bypass grafting September 01, 2023. Anticipated amputation, September 08, 2023. Liver mass with biopsy on 08/25/2023 revealing fragments of necrotic cellular material suggestive of necrotic neoplasm, insufficient for diagnosis due to lack of viable tissue. Right apical masslike density. Scattered pulmonary nodules mid and lower lung beatty. Patchy basilar infiltrates. Small right effusion. Suspect metastatic disease. Recent surgery on 08/04/2023 with left common femoral thromboendarterectomy for occlusive disease. History of DVT/PE. History of abdominal aortic aneurysm. Chronic and ongoing tobacco dependence. Anorexia/cachexia syndrome with a BMI of 23.4 kg/m. Plan: Plan dated September 05, 2023. The patient is anticipated to have a left lower extremity amputation tomorrow, September 06, 2023. Labs, x-rays, medications are reviewed. The patient remains on antibiotics in the form of vancomycin and cefepime. The patient continues on oxygen at 3 L. The patient is not receiving any IV fluids at this time. We will continue to follow the patient, make recommendations along the way. Prognosis is guarded. Plan dated September 06, 2023. The patient is planning to have an amputation sometime later today. The patient continues on vancomycin and cefepime. The patient is on 3 L of oxygen. Labs, x-rays, medications are reviewed. The patient's overall prognosis remains very guarded. We will continue to follow, make recommendations along the way. Plan dated September 07, 2023. The patient is seen today in room 379. The amputation, of her left leg, was canceled by anesthesia yesterday, because of concerns of heart failure. The patient is currently on 4 L of oxygen. She continues on vancomycin and cefepime. Apparently now the plan is to do the amputation tomorrow. The lung biopsy on this patient, can wait, till after the amputation, and after she is a bit more stable. Additional recommendations and suggestions are forthcoming. Labs, x-rays, medications are reviewed. Prognosis is poor. Plan dated September 08, 2023. The patient is seen in room 379. The patient continues on oxygen at 4 L. The patient is getting saline at 10 cc an hour. The patient continues on cefepime and vancomycin. Cultures thus far are negative or pending. The patient is to go to the operating room today, for amputation of the left lower extremity. Additional recommendations and suggestions are forthcoming. We will continue to follow the patient, and make recommendations along the way. The patient's overall prognosis remains very guarded. Time with Patient: Less than 30
[2023-09-08] MEDS: SODIUM CHLORIDE 0.9% 600 ML IV ONE (11:41)
[2023-09-08] MEDS: ONDANSETRON 4 MG/2 ML VIAL IVP ONE (12:01)
[2023-09-08] MEDS: DEXAMETHASONE SOD PHOSPHATE 4 MG/ML 1 ML VIAL IVP ONE (12:02)
--- NOTE | 2023-09-08 12:25 | P.PN ---
Subjective Progress Note Date: 09/08/23 Principal diagnosis: liver and lungs lesions In follow-up today patient still has significant leg pain. Pt is more lethargic today, but did receive dose of IVP pain meds prior to visit. Pt is scheduled today for left AKA. She is not eating or drinking very well. She is very weak and not able to ambulate or move very well. Objective - Vital Signs Vital signs: Vital Signs Temp 97.2 F L 09/08/23 11:43 Pulse 96 09/08/23 11:43 Resp 16 09/08/23 11:43 BP 119/65 09/08/23 11:43 Pulse Ox 95 09/08/23 11:43 FiO2 21 08/27/23 20:23 Intake & Output 09/07/23 09/08/23 09/08/23 18:59 06:59 18:59 Intake Total 350 310 0 Output Total 400 500 Balance -50 -190 0 Intake: Oral 350 Blood Product 0 310 0 Unit 0 Rc Irr As1 Unit 0 310 [id number] Output: Urine 400 500 Other: Voiding Method Indwelling Catheter Indwelling Catheter Indwelling Catheter - Constitutional General appearance: Present: no acute distress - EENT ENT: Present: hearing grossly normal - Respiratory Details: Breathing even and unlabored - Peripheral edema leg Peripheral Edema: left: 3+ (extensive edema to LLE, cool to touch, lower ext discoloration) - Gastrointestinal General gastrointestinal: Present: hepatomegaly - Integumentary Integumentary: Absent: cyanotic - Neurologic Neurologic Comment(s): Somnolent - Musculoskeletal Musculoskeletal: Present: generalized weakness - Labs CBC & Chem 7: 09/08/23 10:18 09/08/23 10:18 Labs: Abnormal Lab Results - Last 24 Hours (Table) 09/05/23 09/08/23 09/08/23 Range/Units 08:46 01:00 10:18 WBC 15.9 H 12.0 H (3.8-10.6) k/uL RBC 2.84 L 2.81 L (3.80-5.40) m/uL Hgb 8.3 L 8.2 L (11.4-16.0) gm/dL Hct 27.2 L 27.0 L (34.0-46.0) % MCHC 30.6 L 30.2 L (31.0-37.0) g/dL RDW 18.3 H 18.6 H (11.5-15.5) % Plt Count 127 L 133 L (150-450) k/uL Neutrophils # 11.1 H (1.3-7.7) k/uL Lymphocytes # 0.4 L (1.0-4.8) k/uL Sodium (137-145) mmol/L BUN (7-17) mg/dL Creatinine (0.52-1.04) mg/dL Calcium (8.4-10.2) mg/dL Crossmatch See Detail 09/08/23 Range/Units 10:18 WBC (3.8-10.6) k/uL RBC (3.80-5.40) m/uL Hgb (11.4-16.0) gm/dL Hct (34.0-46.0) % MCHC (31.0-37.0) g/dL RDW (11.5-15.5) % Plt Count (150-450) k/uL Neutrophils # (1.3-7.7) k/uL Lymphocytes # (1.0-4.8) k/uL Sodium 133 L (137-145) mmol/L BUN 36 H (7-17) mg/dL Creatinine 1.30 H (0.52-1.04) mg/dL Calcium 7.8 L (8.4-10.2) mg/dL Crossmatch Microbiology - Last 24 Hours (Table) 09/02/23 14:46 Blood Culture - Final Blood 09/05/23 08:46 Blood Culture - Preliminary Blood Assessment and Plan (1) Abdominal mass Current Visit: Yes Status: Acute Priority: High Code(s): R19.00 - INTRA- ABD AND PELVIC SWELLING, MASS AND LUMP, UNSP SITE SNOMED Code(s): 931883345 (2) Acute kidney injury Current Visit: Yes Status: Acute Priority: High Code(s): N17.9 - ACUTE KIDNEY FAILURE, UNSPECIFIED SNOMED Code(s): 19695599 (3) Leg pain Current Visit: Yes Status: Acute Priority: High Code(s): M79.606 - PAIN IN LEG, UNSPECIFIED SNOMED Code(s): 60505401 (4) Anemia Current Visit: Yes Status: Acute Priority: High Code(s): D64.9 - ANEMIA, UNSPECIFIED SNOMED Code(s): 797527721 (5) Lung mass Current Visit: Yes Status: Acute Priority: High Code(s): R91.8 - OTHER NONSPECIFIC ABNORMAL FINDING OF LUNG FIELD SNOMED Code(s): 712124652 Plan: Liver mass, lung nudules -CT AP 07/21/2023 showed 10 x 14 cm ill-defined mass in the left liver that was not present on CTA abdomen on 01/04/[address]. [address] Ad Gruber for evaluation but has yet to establish care. -PET CT was scheduled but, pt unable to get to. This will have to be rescheduled at a later date -On admit, CT AP without contrast revealed post femoral bypass changes with fluid collection around graft. Large hepatic mass measuring 18.1 x 12.5 cm, also reporting lung nodules. -08/24 she had liver biopsy pathology revealed necrotic cellular material suggestive of necrotic neoplasm, unfortunately insufficient for diagnosis. -AFP, CEA, and Ca 19-9 normal -Right upper lobe lung mass like consolidation as well as scattered pulmonary nodules throughout the lungs. Cavitary lesion in the right lower lung 5.1 x 3.8 cm. Masslike consolidation in the lung apex measuring 3.7 x 2.5 cm. Pulmonary has seen pt. Plans for biopsy outpt after pt has had AKA Anemia: -New onset earlier this year, progressive since Jun, persistent since admit. The patient is status post 3 units of PRBCs. She does have a response to transfusion but then her hemoglobin slowly drifts back down. This is likely because of acute infection and dilution from fluids. No reported bleeding. -Anemia workup did not reveal any deficiencies, most consistent with anemia of inflammation -Please transfuse for hgb < 7 or if symptomatic. 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 Doppler of bilateral lower extremities on 07/27/2023 revealed chronic appearing deep vein thrombosis within the left popliteal vein and left great saphenous vein. No acute DVT noted bilaterally -Scheduled today for left AKA with Vascular Case has been discussed with Attending Nurse Practitioner as well as Nursing. Discussed concerning findings of liver mass and lung nodules with the patient and her granddaughter at the bedside. Having lesions in the liver and lungs is highly suspicious for malignancy. It is concerning that this represents a malignancy that has metastasized. This would unfortunately be stage IV disease that is treatable, but not curable. We are unable to discuss in further detail prognosis or treatment options until the primary has been identified. All questions were answered to her patient and granddaughter satisfaction. They understand the need for the amputation for comfort. They understand that no treatment for malignancy would begin until primary has been identified and she has had adequate healing from the surgery. IM team has discussed hospice/comfort care with patient, she is not interested for the same at this time.
[2023-09-08] MEDS ORDERED: PHENYLEPHRINE 10 MG/ML VIAL ONE (12:33)
[2023-09-08] MEDS ORDERED: SUCCINYLCHOLINE CHLORIDE 200 MG/10 ML VIAL IV ONE (12:33)
[2023-09-08] MEDS ORDERED: PROPOFOL 10 MG/ML 20 ML VIAL IV ONE (12:33)
[2023-09-08] MEDS ORDERED: fentaNYL (PF) 50 MCG/ML 2 ML AMP ONE (12:33)
--- NOTE | 2023-09-08 14:58 | P.PN ---
Subjective Progress Note Date: 09/08/23 Patient is a 73-year-old female with a past medical history of DVT/PE on anticoagulation, peripheral vascular disease with left leg pain status post femoral to femoral bypass and left common femoral thromboendarterectomy on 08/04/2023, history of cholecystectomy on 07/11/2023 presents to ER with complaints of left lower extremity pain swelling and discoloration. Patient has been having chronic pain which has improved during the last 7 to 10 days. Patient does have history of liver mass and her physician is planning to get PET scan as an outpatient.. Patient has not seen oncology before. Otherwise patient denied any complaints of fever or chills. No nausea vomiting. No diarrhea. No cough or sputum production. No chest pain. EKG showed sinus rhythm. CT of the abdomen pelvis showed post femoral-femoral bypass changes with fluid collection around the graft. 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 Similar infrarenal abdominal aortic aneurysm back to at least 01/04/2023. Measuring 3.7 x 4.4 cm. Laboratory data showed WBC 18.8 hemoglobin 7.1, MCV 88.7 and platelets 473 INR 1.6, sodium 130 potassium 5.2 chloride 100 bicarb is 19 BUN 68, creatinine 2.03 and blood sugar 100 Total bili 1.9 AST 89 ALT 43 and alk phos 428 and albumin 2.5 and lipase level 977 08/24/2023 Patient is seen and evaluated in follow-up today being followed by vascular surgery along with oncology and interventional radiology was consulted for possible biopsy. Patient continued on empiric antibiotics with concerns of possible cellulitis of the lower extremities. Patient evaluated by vascular surgery as patient is recent femoropopliteal bypass and left common femoral thromboendarterectomy with no plans of revascularization interventions at this time. Patient okay to resume anticoagulation once cleared by oncology. Will hold on anticoagulation for now as hemoglobin is low and post 1 unit of PRBCs hemoglobin is 7.7 today. Discussing possible biopsy of the liver and will hold on anticoagulation including holding subcutaneous heparin for now. Interventional radiology consulted and pending. Patient with significant weakness would recommend being evaluated by PT/OT therapy. Overall treatment plan discussed with patient and would like to receive treatment if available. Will discuss further with oncology once biopsy is performed. 08/25/2023 Patient is seen in follow-up today currently n.p.o. scheduled to undergo ultrasound for possible liver biopsy with interventional radiology. Patient maintained on antibiotics as severe and patient is maintained on Dilaudid. Will also add [place] for breakthrough pain as patient reports 10/10 on the pain scale. Vascular surgery evaluated the patient with no plans of revascularization or surgical intervention on that left lower extremity. No contraindication to resume anticoagulation and Xarelto is being resumed. Patient is afebrile with no reports of chest pain or shortness of breath. Patient is currently wearing 2 L although does not normally wear oxygen outpatient. Encouraged oral intake and increased activity as tolerated. Patient to undergo biopsy and awaiting pathology as there is concerns of metastasis from the lungs as well. Overall prognosis is poor and guarded left at this time. 08/26/2023 Patient is resting in the bed. Awake alert and oriented x 3. No complaints of chest pain or shortness of breath. Patient still having left lower extremity discoloration of the toes. Swelling is about the same. Right lower extremity swelling did improve. Patient is s/p liver biopsy. Continued on anticoagulation with Xarelto. Patient is on antibiotics, cefazolin. Laboratory showed WBC 13.4 hemoglobin 7.7 and platelets 217 Sodium 130 potassium 3.5 chloride 101 bicarb is 24 BUN 25 and creatinine 0.93 and blood sugar 103 and calcium 7.8 and magnesium 2.2 08/27/2023 Patient is resting in the bed. Awake alert and oriented x 3. No nausea vomiting abdominal pain or diarrhea. Currently on room air. Still having left lower extremity discoloration of the toes and swelling. Hemoglobin 6.9 this morning and is being transfused with 1 unit of PRBC Other laboratory data showed WBC trending down to 12.8 hemoglobin 6.9 and platelets 218 sodium 134 potassium 4.3 chloride 103 bicarb is 23.5 BUN 19 and creatinine 1.0 and blood sugar 96 and calcium 8.1. Patient is on anticoagulation with Xarelto and also antibiotics cefazolin. Pain is controlled. 08/28/2023 Patient is seen and evaluated in follow-up today with multiple medical consultations following including vascular surgery and oncology. Patient cont inues to have a white count although is trending down and will follow-up with repeat labs. Patient is status post biopsy of the liver which is pending. Patient continues to report significant pain in the left lower extremity with inability to ambulate and was evaluated by vascular surgery with no plans of revascularization and also discussed with the patient about possible amputation for palliative pain relief as there are no plans or availabilities for further surgical intervention on that left lower extremity. Anticoagulation resumed. Patient remains on cefazolin with concerns of possible cellulitis of the lower extremities. Recommend repeat labs in the a.m. and continued PT/OT therapy 08/29/2023 Patient is seen in follow-up this morning with vascular and oncology following. Patient continues to report significant 10/10 pain of the left lower extremity and repeat CT angiogram being ordered. Patient underwent biopsy of the liver although suggestive of metastatic disease, specimen was insufficient for diagnosis. Oncology discussing looking into CT chest to evaluate the lung no dules for possible biopsy and/or bronchoscopy. Patient is afebrile, white count remains slightly elevated, no reports of chest pain or shortness of breath and patient is on room air. Patient continues on antibiotics with concerns of lower extremity cellulitis as well. Encouraged to increase activity as tolerated although patient reports unable to stand due to the pain on the left leg. Recommend PT/OT therapy daily. 08/30/2023 Patient is seen and evaluated today with vascular surgery following and patient underwent CT angio runoff with plans for vascular intervention on Monday as the graft on the left is down and patient reports continued significant left leg pain and inability to ambulate or place any weight on it due to the pain. Multiple medications including Dilaudid, [place], gabapentin have been added with minimal pain relief. Patient also had CT chest with multiple lung nodules noted and oncology following recommending pulmonary consultation for possible bronchoscopy with biopsy for confirmation of diagnosis. Patient maintained on Xarelto and will be placed on hold for surgical intervention for Monday. Patient is afebrile with no reported chest pain or shortness of breath. Patient not eating very much she reports does not have much of an appetite. Patient is getting anxious about overall treatment plan moving forward. Overall prognosis is extremely poor and guarded. Patient remains full code 08/31/2023 Patient is seen in follow-up this morning continues to report severe left lower extremity leg pain with vascular surgery following plans of revascularization an d evaluation of the graft on 09/01/[address] Almanza. Patient will be n.p.o. at midnight. Patient was evaluated by pulmonary recommending revascularization prior to bronchoscopy and/or biopsy of the lung nodules. Patient is currently sitting up in the bed on room air and denies any chest pain or shortness of breath. Patient reports is eating and tolerating with no reported nausea or vomiting. 09/01/2023 Patient is seen and evaluated in follow-up this morning currently n.p.o. as patient is scheduled to undergo revascularization intervention with Dr. Almanza this morning. Being taken to the OR currently. Vital signs are stable and we will follow-up and await surgical report. 09/02/2023 Patient is seen in follow-up today on the stepdown unit. Patient underwent left axillary to femoral bypass yesterday secondary to a failed femoral to femoral bypass. Patient was seen in follow-up with vascular surgery today who per patient has discussed possible surgical amputation of the left leg. The left foot today is blackened no pulse noted. Additionally patient's abdomen remains distended. Pulmonary following and recommending bronchoscopy versus thoracentesis for diagnostic measures regarding the right upper lobe mass. Patient is off Xarelto at this time. Her white blood cell count is elevated at 22.9, hemoglobin 9.1., Sodium 132, renal function is stable BUN of 24, creatin ine of 0.74. She remains on IV cefazolin. 09/03/2023 Patient is seen in follow-up today on the stepdown unit. She continues to report significant pain to the left lower extremity currently rating it 8 out of 10. She is maintained on a combination of IV Dilaudid every 3 hours, gabapentin, [place] 7.5. Chest x-ray yesterday afternoon shows similar findings of COPD with irregular patchy infiltrates/pneumonia throughout the mid and lower lungs this is a nodular appearance raises the possibility of either concurrent metastatic disease or an atypical fungal mycobacterial infections. A trace rig ht pleural effusion persists. Patient is seen in follow-up today by vascular surgery with recommendations for possible amputation and again patient is in agreements with this. Discussed metastatic liver disease with patient and again patient is wanting to continue with current treatment plan and for treatment even if it is palliative. Patient is not ready for hospice or comfort measures at this time. Plans for biopsy are on hold until patient finishes treatment for the ischemic limb. Patient understanding of this. Patient continues on IV cefazolin. Her blood work is improving white blood cell count down to 17.4, hemoglobin 7.7, sodium 133, BUN of 23, creatinine of 0.90. Magnesium 1.8. 09/04/2023 Patient is followed up today on the medical unit. Patient continues to report significant pain to the left lower extremity mainly of the foot and is rating it a 10 out of 10. She continues on IV and oral pain medication. Patient was reevaluated by vascular surgery recommending to hold the Xarelto at this time and patient is scheduled to undergo left [id number] amputation on Monday, September 06, 2023. She remains on oxygen nasal cannula at 4 L. White blood cell count of 19.6 today, hemoglobin 8.5, sodium 133, BUN of 20, creatinine of 0.70, magnesium 1.7. Chest X-ray from a few days ago continues to show a trace right pleural effusion and sodium down to 131 and patient has been continued on IV fluids. 09/05/2023 Patient is seen in follow-up today on the stepdown unit. Family at the bedside. Patient is scheduled to undergo left-sided [id number] amputation on . Patient continues to report significant pain and discomfort to the left foot and leg. On IV and oral pain medications. Xarelto remains on hold. Chest xray follow up today reveals right greater than left greater bibasilar opacities. Bilateral areas of nodularity redemonstrated compatible with findings seen on CT chest 08/29/23. Correlate for metastatic disease versus atypical fungal/mycobacterial infections. ID was consulted due to the persistent leukocytosis antibiotics have been adjusted patient is on IV vancomycin and IV cefepime. White blood cell count 21.2 today, hgb 8.9, sodium 132, BUN 20, creatinine 0.71, magnesium 1.9. 09/06/2023 Patient is followed up today in the stepdown unit. She is pending surgical intervention for her ischemic leg she will undergo a left-sided vpthc-[id number]-[id number] amputation today. Patient continues to report pain to the left leg currently 8 out of 10. Patient has an indwelling catheter in place she has been leaking urine around the Benjamin discussed with nursing and they will plan on addressing this and changing the bag out today. She received a dose of IV Lasix yesterday reports that she was breathing much better. Her white blood cell count is 15.4, hemoglobin 7.7, sodium of 132, potassium of 3.7, BUN of 24, creatinine of 0.84. Magnesium 1.9. Procalcitonin level of 1.25. 09/07/2023 Patient is evaluated today family at the bedside. Cardiology was consulted for surgical clearance for the left AKA. Anesthesia to also follow up with the patient today. Limited echocardiogram was done showing probably normal LV systolic function. No significant valvular disease. EF is 55 to 60%. Patient received a second dose of IV lasix. Follow up chest xray reveals; COPD with numerous bilateral masslike and nodular densities. Residual but improving airspace disease at the lung bases. 09/08/2023 Patient is seen in follow-up this morning currently awaiting transport to be taken to the OR at this time with vascular surgery with plans on left nlzjl-[id number] amputation. Patient was seen and evaluated by cardiology and deemed high risk for surgical intervention but given the fact that the limb is ischemic, patient and family are aware of the risks and willing to proceed with this intervention. Patient is currently n.p.o. and has just received Dilaudid for pain and patient continues to report significant severe pain 04/04 with no relief. Will await surgical report. Overall prognosis is extremely poor and guarded at this time. Family and patient are not interested in hospice at this time. Medications reviewed. Review of systems: Constitutional: No reports of fatigue, fever, or chills Cardiovascular: No reports of chest pain or palpitations Respiratory: Reports shortness of breath with no worsening GI: No reports of nausea, vomiting, or diarrhea, Reports abdominal pain and distention. : No reports of dysuria or retention Neurovascular: reports of generalized weakness, reports continued left lower extremity pain 10/10 All medications have been reviewed PHYSICAL EXAMINATION: Patient is lying in the bed lethargic although arousable and has just received Dilaudid prior to exam, elderly appearing, thin built, well-developed, ill- appearing HEENT: Normocephalic. Neck is supple. Pupils reactive. Nostrils clear. Oral cavity is moist. Neck reveals no JVD, carotid bruits, or thyromegaly. CHEST EXAMINATION: Trachea is central. Symmetrical expansion. Bibasilar diminished sounds. Scattered ronchi. CARDIAC: Normal S1, S2 with no gallops. No murmurs ABDOMEN: Soft. Tender on palpation, bowel sounds normal. Large firm liver noted on the right. No abdominal bruits. Extremities: Bilateral lower extremity swelling with skin dislocation/mottling of the left lower extremity. Neurologically awake, alert, oriented x3. Patient is able to move all extremities.. No focal deficits noted. diffusely weak Skin: No rash or skin lesions. Cyanosis noted on lower extremities as well as upper extremities, more so on the right hand; left foot is discolored and blackened extending up to the ankle. Skin tear on coccyx. Psychiatric: Cooperative. Non-suicidal, anxious. Musculoskeletal: No joint swelling or deformity. Normal range of motion. Assessment: -Bilateral lower extremity pain, swelling with recent history of femorofemoral bypass and left common femoral thromboendarterectomy with graft malfunction, S/P revascularization on September 01 with left axillary to femoral bypass. Plan for Left AKA. -Possible bilateral lower extremity cellulitis, persistent leukocytosis antibiotics have been changed to IV cefepime and IV vancomycin with ID consultation -Acute kidney injury likely prerenal, improved. 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 Concern for volume overload patient, improved s/p dose of IV lasix. 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 Patient is scheduled for outpatient PET scan. Status post liver biopsy 08/25/2023, likely metastatic disease although specimen was insufficient for diagnosis -Abdominal aortic aneurysm stable from recent study -Currently everyday smoker -Moderate protein calorie malnutrition with a BMI of 23.4 -Hx of uterine cancer with hysterectomy GI prophylaxis DVT prophylaxis on Xarelto, currently on hold as patient is scheduled to undergo surgical intervention on 09/08/2023 Full code Plan: -Patient is continued on antibiotics, ID consulation in place; antibiotics have been adjusted to vancomycin and cefepime. -Xarelto remains on hold status post revascularization, patient is now scheduled to undergo left AKA tentatively today 09/08/2023. Will await surgical report -Oncology following status post biopsy and there was noted necrotic tissue and likely metastatic disease although specimen was insufficient for diagnosis. -Pulmonary has evaluated the patient recommending waiting bronchoscopy with biopsy until left lower extremity revascularization is done and likely will be done on an outpatient basis -Continue with pain management. Patient continues to report severe pain with Dilaudid and [place], gabapentin. -PT/OT following patient will require extensive rehabilitation after limb amputation. Overall prognosis remains poor. -Prognosis is extremely poor guarded with multiple medical problems and comorbid conditions. Patient currently remains a full code and would like to receive treatment if there are options available. Discussed with patient and she is not ready for comfort care or hospice measures. Family at the bedside today and updated on plan of care. -Remain off IV fluids, Echocardiogram done and reviewed and cardiology has evaluated the patient. Per cardiology, no sign of heart failure in this patient. Cardiology has felt patient is a high risk for any surgical intervention due to multiple significant comorbidities. -Patient is a high surgical risk but would consider surgery as urgent and necessary due to the ischemic limb. Patient and family is aware of the risks including and willing to proceed with surgical intervention -Repeat labs in the AM. -Again overall prognosis is extremely poor and guarded at this time The impression and plan of care has been dictated by Amara Marrero, Nurse Practitioner as directed. Dr. Lia MD I have performed a history and examination and MDM of this patient, discussed the same with the dictator, and agree with the dictator's assessment and plan as written ,documented as a scribe. Based on total visit time, I have performed more than 50% of the visit. In the form of cefazolin with concerns of cellulitis of the lower extremities. Left lower extremity pain Objective - Vital Signs Vital signs: Vital Signs Temp 97.0 F L 09/08/23 14:05 Pulse 104 H 09/08/23 14:35 Resp 34 H 09/08/23 14:35 BP 104/57 09/08/23 14:35 Pulse Ox 95 09/08/23 14:35 FiO2 21 08/27/23 20:23 Intake & Output 09/07/23 09/08/23 09/08/23 18:59 06:59 18:59 Intake Total 350 310 680 Output Total 400 500 250 Balance -50 -190 430 Intake: IV 400 Oral 350 Blood Product 0 310 280 Rc Irr As1 Unit 0 310 [id number] Rc Pheresis As-3 Unit 280 [id number] Output: Urine 400 500 50 Estimated Blood Loss 200 Other: Voiding Method Indwelling Catheter Indwelling Catheter Indwelling Catheter - Labs CBC & Chem 7: 09/08/23 10:18 09/08/23 10:18 Labs: Abnormal Lab Results - Last 24 Hours (Table) 09/05/23 09/08/23 09/08/23 Range/Units 08:46 01:00 10:18 WBC 15.9 H 12.0 H (3.8-10.6) k/uL RBC 2.84 L 2.81 L (3.80-5.40) m/uL Hgb 8.3 L 8.2 L (11.4-16.0) gm/dL Hct 27.2 L 27.0 L (34.0-46.0) % MCHC 30.6 L 30.2 L (31.0-37.0) g/dL RDW 18.3 H 18.6 H (11.5-15.5) % Plt Count 127 L 133 L (150-450) k/uL Neutrophils # 11.1 H (1.3-7.7) k/uL Lymphocytes # 0.4 L (1.0-4.8) k/uL Sodium (137-145) mmol/L BUN (7-17) mg/dL Creatinine (0.52-1.04) mg/dL Calcium (8.4-10.2) mg/dL Crossmatch See Detail 09/08/23 Range/Units 10:18 WBC (3.8-10.6) k/uL RBC (3.80-5.40) m/uL Hgb (11.4-16.0) gm/dL Hct (34.0-46.0) % MCHC (31.0-37.0) g/dL RDW (11.5-15.5) % Plt Count (150-450) k/uL Neutrophils # (1.3-7.7) k/uL Lymphocytes # (1.0-4.8) k/uL Sodium 133 L (137-145) mmol/L BUN 36 H (7-17) mg/dL Creatinine 1.30 H (0.52-1.04) mg/dL Calcium 7.8 L (8.4-10.2) mg/dL Crossmatch Microbiology - Last 24 Hours (Table) 09/02/23 14:46 Blood Culture - Final Blood 09/05/23 08:46 Blood Culture - Preliminary Blood
--- NOTE | 2023-09-08 14:58 | P.OP ---
Date of Procedure: 09/08/23 Description of Procedure: Preoperative diagnosis: Left lower extremity ischemia Postoperative diagnosis: Same Procedure: Left above-knee amputation Surgeon: Kirstin Benjamin D.O. Anesthesia: General endotracheal EBL: 150 cc IV fluids: See records Urine output: See records Drains: None Complications: None immediately apparent Condition: Stable to recovery Operative indication and findings: Patient is a 73-year-old female with peripheral vascular disease and metastatic cancer. Due to her critical limb i schemia and no further options for revascularization discussion was had regarding going forward with above-knee amputation for comfort/palliation. Multiple long discussions had with patient and family regarding risks including but not limited to bleeding, infection, cardiopulmonary risks and . They seemingly understood and willing to proceed. Procedure in detail: The patient was taken to the operative suite and placed in supine position. After adequate anesthesia, the left lower extremity was prepped and draped in usual sterile fashion. A preprocedure timeout was performed, all parties were in agreement. Skin marker was utilized and the incision was marked approximately 5 cm proximal to the knee joint. Skin incision was performed and deepened through the subcutaneous tissues to the muscular fascia. The saphenous vein was identified and ligated with 2-0 silk and divided. The muscle groups of the anterior and medial thigh were divided with electrocautery at the same level of the skin incision. The neurovascular bundle was identified on the medial aspect of the thigh. The artery and veins were isolated and suture ligated using 2-0 silk ligature. The sciatic nerve was pulled on stretch and ligated with 2-0 silk tie and divided. The femur was then cleared of its periosteal tissue is elevated roughly 5 cm proximally and was divided with the oscillating saw. The posterior thigh muscles were then divided with electrocautery. The proximal end of the transected femur was smoothed with a rasp. The amputation site was then copiously irrigated. Hemostasis was contr olled with electrocautery. The periosteum was reapproximated using interrupted sutures of 2-0 Vicryl. The fascia was reapproximated with interrupted [id number] sutures of 2-0 Vicryl. The skin was reapproximated with caden. A dressing with gauze, Kerlix and a bandage were placed. of note the skin throughout the surgery was significantly Friable with petechiae and ecchymosis after even light touch. The patient tolerated the procedure well and was transported to PACU in stable condition
[2023-09-08] MEDS ORDERED: GABAPENTIN 100 MG CAP PO PRN (14:59)
[2023-09-08] MEDS: HYDROmorphone 0.5 MG/0.5 ML SYRINGE IVP ONE (15:05)
[2023-09-08] MEDS: SODIUM CHLORIDE 0.9% 1,000 ML IV ONE (15:08)
[2023-09-08 16:52] LABS: Anisocytosis Slight; HCT 29.9 % (34.0-46.0); HGB 9.1 gm/dL (11.4-16.0); Hypochromasia Marked; MCH 28.9 pg (25.0-35.0); MCHC 30.4 g/dL (31.0-37.0); Macrocytosis Slight; Mean Platelet Volume 9.4; Platelet Count 136 k/uL (150-450); Poikilocytosis Slight; RBC 3.15 m/uL (3.80-5.40); RDW 18.7 % (11.5-15.5)
[2023-09-09 09:18] LABS: Anisocytosis Slight; Basophils % (A) 0 %; Eosinophils % (A) 0 %; HCT 29.6 % (34.0-46.0); HGB 8.7 gm/dL (11.4-16.0); Hypochromasia Marked; Lymphocytes # (A) 0.5 k/uL (1.0-4.8); Lymphocytes % (A) 3 %; MCH 28.6 pg (25.0-35.0); MCHC 29.5 g/dL (31.0-37.0); MCV 96.8 fL (80.0-100.0); Macrocytosis Slight; Mean Platelet Volume 9.6; Monocytes # (A) 0.7 k/uL (0-1.0); Monocytes % (A) 4 %; Neutrophils # (A) 14.7 k/uL (1.3-7.7); Neutrophils % (A) 91 %; Platelet Count 149 k/uL (150-450); Poikilocytosis Slight; RBC 3.06 m/uL (3.80-5.40); RDW 18.5 % (11.5-15.5); WBC 16.1 k/uL (3.8-10.6)
[2023-09-09 09:27] LABS: African American GFR (CKD) 34 (>60 ml/min/1.73 sqM); Anion Gap 5 mmol/L; Blood Urea Nitrogen 49 mg/dL (7-17); Calcium 8.1 mg/dL (8.4-10.2); Carbon Dioxide 19 mmol/L (22-30); Chloride 109 mmol/L (98-107); Glucose 79 mg/dL (74-99); Non-African American GFR(CKD) 29 (>60 ml/min/1.73 sqM); Potassium 4.8 mmol/L (3.5-5.1); Sodium 133 mmol/L (137-145)
[2023-09-09] MEDS ORDERED: VANCOMYCIN IV PER PHARMACY 1 EACH MISC MISCELLANE PRN (11:31)
--- NOTE | 2023-09-09 11:56 | P.PN ---
Subjective Progress Note Date: 09/09/23 Principal diagnosis: Acute kidney injury. This is a 73-year-old female patient with a known history of pulmonary embolism, DVT of the left leg, uterine cancer with previous hysterectomy, chronic obstructive pulmonary disease with chronic and ongoing tobacco dependence. She had presented here to the emergency room back on August 22, 2023 with complaints of left leg pain. She has had chronic pain and had previously had surgery 2 weeks prior to her arrival here. She also was known to have suspected liver cancer with metastasis and was waiting on an outpatient PET scan. CT scan of the abdomen did reveal a post femoral-femoral bypass changes with fluid collection around the graft. There is a large hepatic mass with metastatic disease throughout the lungs. Similar infrarenal abdominal aortic aneurysm from previous scan in December 2022. She did have a liver biopsy here on August 25, 2023 that revealed necrotic cellular material suggestive of necrotic neoplasm but insufficient for diagnosis due to lack of viable tissue. We were consulted today for possible lung biopsy. 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 Her Xarelto is on hold and they are planning for axillofemoral bypass grafting on 09/01/2023. She is seen today in consultation on the regular medical floor. She is currently sitting up in bed. She is having quite a bit of musculoskeletal pain. She is also having quite a bit of left lower extremity pain. She is maintaining O2 saturations in the 90s on room air. She is afebrile. Hemodynamically stable. She denies any worsening shortness of breath, cough or congestion. No hemoptysis. The patient is seen today August 31, 2023 in follow-up on the regular medical floor. She is currently sitting up in bed having breakfast. Awake and alert in no acute distress. Maintaining O2 saturations in the 90s on room air. Ultrasound of the chest revealed small bilateral pleural effusions with 2.8 cm fluid on the right and 1.9 cm on the left. Not marked for thoracentesis. She is status post 2 units of packed red blood cells this admission. Current hemoglobin 8.0. Platelets 227. White count 14.2. Sodium 134. Potassium 4.0. Bicarb 24. BUN 17. Creatinine 0.7. Glucose 80. She remains on cefazolin. Normal saline at 50 MLS per hour. The patient is seen today September 01, 2023 in follow-up on the regular medical floor. She is currently resting in bed. Awake and alert in no acute distress. Maintaining O2 saturations in the mid 90s on room air. She is afebrile. Hemodynamically stable. Planning for an axillobifemoral bypass today with vascular surgery. She is status post 2 units of packed red blood cells this a dmission. Current hemoglobin 8.3. Platelets 193. White count 16.6. Sodium 131. Potassium 4.5. Bicarb 22. BUN 22. Creatinine 0.64. Glucose 88. Remains on cefazolin. Continued on bronchodilators. The patient is seen today September 02, 2023 in follow-up on the right on the selective care unit. She is awake and alert in no acute distress. She did undergo a left axillary to femoral bypass grafting yesterday. Her left lower extremity still quite discolored. Still having pain. Pulse is absent. She is status post 3 units of packed red blood cells this admission. Current hemoglobin 9.1. Platelets 186. White count 22.9. Sodium 132. Potassium 3.9. Bicarb 18. BUN 24. Creatinine 0.74. Glucose 71. She is currently maintaining good O2 saturations in the 90s on 4 L/min per nasal cannula. Afebrile. Hemodynamically stable. She is continued on cefazolin. The patient is seen today September 03, 2023 in follow-up on the selective care unit. She is currently resting in bed. Awake and alert in no acute distress. Still with significant left lower extremity pain. No pedal or posterior tibial pulses palpable. Leg remains very discolored cool to touch and mottled. She denies any worsening shortness of breath, cough or congestion. Chest x-ray continues to show evidence of COPD with irregular and patchy infiltrate/pneumonia throughout the mid and lower lungs. Nodular appearances raises the possibility of metastatic disease. She is status post 3 units of packed red blood cells this admission. Current hemoglobin 7.7. Platelets 160. White count 17.4. Sodium 133. Potassium 3.9. Bicarb 23. BUN 23. Creatinine 0.90. She is continued on bronchodilators. Remains on cefazolin. Dilaudid and [place] for pain control. The patient is seen today September 04, 2023 in follow-up on the selective care unit. She is currently resting in bed. Awake and alert in no acute distress. Still having discomfort in the left lower extremity. He is currently maintaining O2 saturations in the 90s on 4 L/min per nasal cannula. She is afebrile. Hemodynamically stable. White count 19.6. Hemoglobin 8.5. Platelets 198. Sodium 131. Potassium 4.1. Bicarb 24. BUN 20. Creatinine 0.70. Glucose 87. She remains on cefazolin. Heparin for DVT prophylaxis. Continued on bronchodilators. Pain medication in the form of Dilaudid and [place]. Progress note dated September 05, 2023. 73-year-old female seen today in room 379. The patient is going for surgery, on the left lower extremity, tomorrow. Currently, the patient is on 3 L of oxygen by nasal cannula. She continues on vancomycin, and cefepime. Current laboratory data includes a white count of 21.2, hemoglobin 8.9, hematocrit 29.5, and a platelet count of 237,000. Sodium 132, potassium 3.7, chlorides 106, CO2 22, BUN 20, creatinine 0.71. Glucose is 109. AST is 53. Alkaline phosphatase is 423. C-reactive protein is 33.6. N-terminal proBNP is 1440. Albumin is 1.6. X-rays consistent with COPD, and slight worsening of the infiltrates, in the right greater than left basilar areas. Progress note dated September 06, 2023. 73-year-old female seen today in room 379. The patient is scheduled to have an amputation of the left lower extremity, sometime later today. The patient continues on oxygen at 3 L. The patient continues on antibiotics in the form of cefepime, and vancomycin. She has no new complaints today. Current labs include a white count 15.4, hemoglobin 7.7, hematocrit 25.5, and a platelet count of 151,000. Sodium 132, potassium 3.7, chlorides 106, CO2 24, BUN 24, and creatinine 0.84. Calcium is 7.8. Magnesium is 1.9. Procalcitonin level from yesterday, was 1.25. Progress note dated September 07, 2023. 73-year-old female, seen in room 379. The patient continues on 4 L of oxygen. Her antibiotics include vancomycin and cefepime. She apparently was scheduled to have an amputation of the left lower extremity, done yesterday, but anesthesia, thought the patient was in acute CHF, and canceled the surgery. The patient in my opinion, needs to have the amputation first, recover from that, before any contemplation is given to a lung biopsy. Delaying the lung biopsy for a week or 10 days or so, or even longer, would not change the prognosis. White count of 16.6, hemoglobin 7.1, hematocrit 23.6, and platelet count 152,000. Sodium 132, potassium 4, chlorides 108, CO2 23, BUN 30, creatinine 1.08. Calcium is 8.0. Blood cultures are currently negative. Chest x-ray from yesterday shows changes of COPD, with numerous of bilateral masslike and nodular densities, and some residual airspace disease at the lung bases. Progress note dated September 08, 2023. 73-year-old female seen in room 379. The patient continues on oxygen at 4 L. The patient is receiving saline at 10 cc an hour. She continues on cefepime and vancomycin. The patient is to go to the operating room today, for an amputation of the left leg. She was to go on Monday, but anesthesia felt that she was unstable, so the surgery was canceled. Current laboratory data includes a white count 12, hemoglobin 8.2, hematocrit 27, and a platelet count of 133,000. Blood cultures have been negative. No new x-rays to report. Progress note dated September 09, 2023. 73-year-old female, seen in room 379. The patient continues on oxygen at 4 L. She also continues on cefepime and vancomycin. Yesterday, Dr. Benjamin did a left zwsgf-opm-rvyz amputation. Family members are at the bedside. Current labs include a white count 16.1, hemoglobin 8.7, hematocrit 29.6, and a platelet count of 149,000. Sodium 133, potassium 4.8, chlorides 109, CO2 19, BUN 49, creatinine 1.73. Calcium is 8.1. Blood cultures are negative. Objective - Vital Signs Vital signs: Vital Signs Temp 98.1 F 09/09/23 11:43 Pulse 98 09/09/23 11:43 Resp 17 09/09/23 11:43 BP 111/60 09/09/23 11:43 Pulse Ox 95 09/09/23 11:43 FiO2 21 08/27/23 20:23 Intake & Output 09/08/23 09/09/23 09/09/23 18:59 06:59 18:59 Intake Total 880 Output Total 600 Balance 280 Intake: IV 600 Blood Product 280 Rc Pheresis As-3 Unit 280 [id number] Output: Urine 400 Estimated Blood Loss 200 Other: Voiding Method Indwelling Catheter Indwelling Catheter Indwelling Catheter - Exam No acute distress, oriented 3. Patient is currently on 4 L of oxygen by nasal cannula. HEENT examination is grossly unremarkable. Mucous membranes are moist. No oral lesions. Neck supple. Full range of motion. No adenopathy thyromegaly or neck vein distention. Cardiovascular examination reveals regular rhythm rate. S1-S2 normal. No S3 or S4. No discernible murmur noted. Heart sounds are distant. Heart rate 98 bpm. Lungs reveal clear breath sounds. Breath sounds are equal bilaterally. No adventitious lung sounds including wheezes rhonchi or crackles. Saturations are 95 % on 4 L. Abdomen soft bowel sounds are heard. No masses or tenderness. Extremities are revealed a left wexji-eic-cpuu amputation. Skin reveals lower extremity ecchymoses. Neurologic examination is brief but nonfocal. - Labs CBC & Chem 7: 09/09/23 08:14 09/09/23 08:14 Labs: Abnormal Lab Results - Last 24 Hours (Table) 09/05/23 09/08/23 09/09/23 Range/Units 08:46 16:11 08:14 WBC 15.0 H (3.8-10.6) k/uL RBC 3.15 L (3.80-5.40) m/uL Hgb 9.1 L (11.4-16.0) gm/dL Hct 29.9 L (34.0-46.0) % MCHC 30.4 L (31.0-37.0) g/dL RDW 18.7 H (11.5-15.5) % Plt Count 136 L (150-450) k/uL Neutrophils # (1.3-7.7) k/uL Lymphocytes # (1.0-4.8) k/uL Sodium 133 L (137-145) mmol/L Chloride 109 H (98-107) mmol/L Carbon Dioxide 19 L (22-30) mmol/L BUN 49 H (7-17) mg/dL Creatinine 1.73 H (0.52-1.04) mg/dL Calcium 8.1 L (8.4-10.2) mg/dL Crossmatch See Detail 09/09/23 Range/Units 08:14 WBC 16.1 H (3.8-10.6) k/uL RBC 3.06 L (3.80-5.40) m/uL Hgb 8.7 L (11.4-16.0) gm/dL Hct 29.6 L (34.0-46.0) % MCHC 29.5 L (31.0-37.0) g/dL RDW 18.5 H (11.5-15.5) % Plt Count 149 L (150-450) k/uL Neutrophils # 14.7 H (1.3-7.7) k/uL Lymphocytes # 0.5 L (1.0-4.8) k/uL Sodium (137-145) mmol/L Chloride (98-107) mmol/L Carbon Dioxide (22-30) mmol/L BUN (7-17) mg/dL Creatinine (0.52-1.04) mg/dL Calcium (8.4-10.2) mg/dL Crossmatch Microbiology - Last 24 Hours (Table) 09/05/23 08:46 Blood Culture - Preliminary Blood Assessment and Plan Assessment: Left leg pain, swelling and discoloration secondary to occlusion of the left superficial femoral artery extending from its origin to the popliteal artery. Reconstitution with poor visualization of the anterior posterior tibial arteries. Status post left axillobifemoral bypass grafting September 01, 2023. Postop day #1, status post left exfer-bgy-etpm amputation. Liver mass with biopsy on 08/25/2023 revealing fragments of necrotic cellular material suggestive of necrotic neoplasm, insufficient for diagnosis due to lack of viable tissue. Right apical masslike density. Scattered pulmonary nodules mid and lower lung beatty. Patchy basilar infiltrates. Small right effusion. Suspect metastatic disease. Recent surgery on 08/04/2023 with left common femoral thromboendarterectomy for occlusive disease. History of DVT/PE. History of abdominal aortic aneurysm. Chronic and ongoing tobacco dependence. Anorexia/cachexia syndrome with a BMI of 23.4 kg/m. Plan: Plan dated September 05, 2023. The patient is anticipated to have a left lower extremity amputation tomorrow, September 06, 2023. Labs, x-rays, medications are reviewed. The patient remains on antibiotics in the form of vancomycin and cefepime. The patient continues on oxygen at 3 L. The patient is not receiving any IV fluids at this time. We will continue to follow the patient, make recommendations along the way. Prognosis is guarded. Plan dated September 06, 2023. The patient is planning to have an amputation sometime later today. The patient continues on vancomycin and cefepime. The patient is on 3 L of oxygen. Labs, x-rays, medications are reviewed. The patient's overall prognosis remains very guarded. We will continue to follow, make recommendations along the way. Plan dated September 07, 2023. The patient is seen today in room 379. The amputation, of her left leg, was canceled by anesthesia yesterday, because of concerns of heart failure. The patient is currently on 4 L of oxygen. She continues on vancomycin and cefepime. Apparently now the plan is to do the amputation tomorrow. The lung biopsy on this patient, can wait, till after the amputation, and after she is a bit more stable. Additional recommendations and suggestions are forthcoming. Labs, x-rays, medications are reviewed. Prognosis is poor. Plan dated September 08, 2023. The patient is seen in room 379. The patient continues on oxygen at 4 L. The patient is getting saline at 10 cc an hour. The patient continues on cefepime and vancomycin. Cultures thus far are negative or pending. The patient is to go to the operating room today, for amputation of the left lower extremity. Additional recommendations and suggestions are forthcoming. We will continue to follow the patient, and make recommendations along the way. The patient's overall prognosis remains very guarded. Plan dated September 09, 2023. The patient is seen today in room 379. She continues on oxygen at 4 L. She continues on vancomycin and cefepime. Today is postoperative day #1, status post left gunhj-sks-utwc amputation. The surgery was done by Dr. Benjamin. Labs, x-rays, medications are reviewed. The patient's prognosis remains guarded. I explained to the patient and the patient's family, that lung biopsy, would not be done until the patient is much more stable. In addition, the patient is very frail at this time. We will continue to follow. Prognosis is guarded. Time with Patient: Less than 30
[2023-09-09 12:03] VITALS: TEMP 98.1
--- NOTE | 2023-09-09 15:18 | P.PN ---
Subjective Progress Note Date: 09/09/23 Principal diagnosis: Reason for follow-up is leukocytosis Patient is a 73-year-old female with a past medical history significant for COPD DVT pneumonia PE patient patient initial presentation with the leg pain and also have swelling and discoloration to the left foot status post bypass and did have a persistent elevated white count prompted this consultation.Patient is status post left kyivb-mwl-zawb amputation completed on 09/08/2023 On today's evaluation that is 09/08/2023,the patient remains to be afebrile patient was seen in the postop recovering from anesthesia and not a very good historian no pressors: The changes reported by the nursing staff. The patient white count is down to 12,000, creatinine is 1.30 cultures are currently pending Objective - Vital Signs Vital signs: Vital Signs Temp 97.2 F L 09/08/23 11:43 Pulse 96 09/08/23 11:43 Resp 16 09/08/23 11:43 BP 119/65 09/08/23 11:43 Pulse Ox 95 09/08/23 11:43 FiO2 21 08/27/23 20:23 Intake & Output 09/07/23 09/08/23 09/08/23 18:59 06:59 18:59 Intake Total 350 310 330 Output Total 400 500 Balance -50 -190 330 Intake: IV 50 Oral 350 Blood Product 0 310 280 Rc Irr As1 Unit 0 310 [id number] Rc Pheresis As-3 Unit 280 [id number] Output: Urine 400 500 Other: Voiding Method Indwelling Catheter Indwelling Catheter Indwelling Catheter - Exam GENERAL DESCRIPTION: An elderly female lying in bed in no distress RESPIRATORY SYSTEM: Unlabored breathing , coarse breath sounds anteriorly HEART: S1 S2 regular rate and rhythm , ABDOMEN: Soft , no tenderness EXTREMITIES: Left AKA stump is currently dressed - Labs CBC & Chem 7: 09/09/23 08:14 09/09/23 08:14 Labs: Abnormal Lab Results - Last 24 Hours (Table) 09/05/23 09/08/23 09/08/23 Range/Units 08:46 01:00 10:18 WBC 15.9 H 12.0 H (3.8-10.6) k/uL RBC 2.84 L 2.81 L (3.80-5.40) m/uL Hgb 8.3 L 8.2 L (11.4-16.0) gm/dL Hct 27.2 L 27.0 L (34.0-46.0) % MCHC 30.6 L 30.2 L (31.0-37.0) g/dL RDW 18.3 H 18.6 H (11.5-15.5) % Plt Count 127 L 133 L (150-450) k/uL Neutrophils # 11.1 H (1.3-7.7) k/uL Lymphocytes # 0.4 L (1.0-4.8) k/uL Sodium (137-145) mmol/L BUN (7-17) mg/dL Creatinine (0.52-1.04) mg/dL Calcium (8.4-10.2) mg/dL Crossmatch See Detail 09/08/23 Range/Units 10:18 WBC (3.8-10.6) k/uL RBC (3.80-5.40) m/uL Hgb (11.4-16.0) gm/dL Hct (34.0-46.0) % MCHC (31.0-37.0) g/dL RDW (11.5-15.5) % Plt Count (150-450) k/uL Neutrophils # (1.3-7.7) k/uL Lymphocytes # (1.0-4.8) k/uL Sodium 133 L (137-145) mmol/L BUN 36 H (7-17) mg/dL Creatinine 1.30 H (0.52-1.04) mg/dL Calcium 7.8 L (8.4-10.2) mg/dL Crossmatch Microbiology - Last 24 Hours (Table) 09/02/23 14:46 Blood Culture - Final Blood 09/05/23 08:46 Blood Culture - Preliminary Blood Assessment and Plan (1) Leukocytosis Current Visit: Yes Status: Acute Code(s): D72.829 - ELEVATED WHITE BLOOD CELL COUNT, UNSPECIFIED SNOMED Code(s): 279263292 Plan: 1patient with elevated white count and this patient presented to the hospital with the left lower extremity pain patient did have a bypass surgery to the left lower extremity x 2 with the last procedure being on 09/01/2023 for left axillary femoral bypass graft patient did have persistent ischemia to the left lower extremity and pain and is being considered for amputation with elevated white count could be related to underlying ischemia and necrosis to the left foot however the patient also have a cough and is bringing some sputum possible component of pneumonia not entirely excluded less likely though 2-patient did have elevated CRP procalcitonin is mildly elevated 1.25 sputum not collected blood cultures pending 3- patient is afebrile white count is trending down, the patient is status post left bxopq-koh-ibgj amputation we will continue with the current antibiotics perioperatively and monitor clinical course closely Dictation was produced using [employer] dictation software. please excuse any grammatical, word or spelling errors. Time with Patient: Less than 30
--- NOTE | 2023-09-09 15:42 | P.PN ---
Subjective Progress Note Date: 09/09/23 Principal diagnosis: Reason for follow-up is leukocytosis Patient is a 73-year-old female with a past medical history significant for COPD DVT pneumonia PE patient patient initial presentation with the leg pain and also have swelling and discoloration to the left foot status post bypass and did have a persistent elevated white count prompted this consultation.Patient is status post left fuvzm-ull-ufad amputation completed on 09/08/2023 On today's evaluation that is 09/09/2023,the patient remains to be afebrile, patient is on 4 L supplemental oxygen, patient has just got a pain shot and seem to be sleepy not in any distress no other changes reported by the family at the bedside. The patient white count is 16.1, creatinine is 1.73 Objective - Vital Signs Vital signs: Vital Signs Temp 98.1 F 09/09/23 11:43 Pulse 98 09/09/23 11:43 Resp 17 09/09/23 11:43 BP 111/60 09/09/23 11:43 Pulse Ox 95 09/09/23 11:43 FiO2 21 08/27/23 20:23 Intake & Output 09/08/23 09/09/23 09/09/23 18:59 06:59 18:59 Intake Total 880 Output Total 600 Balance 280 Intake: IV 600 Blood Product 280 Rc Pheresis As-3 Unit 280 [id number] Output: Urine 400 Estimated Blood Loss 200 Other: Voiding Method Indwelling Catheter Indwelling Catheter Indwelling Catheter - Labs CBC & Chem 7: 09/09/23 08:14 09/09/23 08:14 Labs: Abnormal Lab Results - Last 24 Hours (Table) 09/08/23 09/09/23 09/09/23 Range/Units 16:11 08:14 08:14 WBC 15.0 H 16.1 H (3.8-10.6) k/uL RBC 3.15 L 3.06 L (3.80-5.40) m/uL Hgb 9.1 L 8.7 L (11.4-16.0) gm/dL Hct 29.9 L 29.6 L (34.0-46.0) % MCHC 30.4 L 29.5 L (31.0-37.0) g/dL RDW 18.7 H 18.5 H (11.5-15.5) % Plt Count 136 L 149 L (150-450) k/uL Neutrophils # 14.7 H (1.3-7.7) k/uL Lymphocytes # 0.5 L (1.0-4.8) k/uL Sodium 133 L (137-145) mmol/L Chloride 109 H (98-107) mmol/L Carbon Dioxide 19 L (22-30) mmol/L BUN 49 H (7-17) mg/dL Creatinine 1.73 H (0.52-1.04) mg/dL Calcium 8.1 L (8.4-10.2) mg/dL Microbiology - Last 24 Hours (Table) 09/05/23 08:46 Blood Culture - Preliminary Blood Assessment and Plan (1) Leukocytosis Current Visit: Yes Status: Acute Code(s): D72.829 - ELEVATED WHITE BLOOD CELL COUNT, UNSPECIFIED SNOMED Code(s): 416308072 Plan: 1patient with elevated white count and this patient presented to the hospital with the left lower extremity pain patient did have a bypass surgery to the left lower extremity x 2 with the last procedure being on 09/01/2023 for left axillary femoral bypass graft patient did have persistent ischemia to the left lower extremity and pain and is being considered for amputation with elevated white count could be related to underlying ischemia and necrosis to the left foot however the patient also have a cough and is bringing some sputum possible compo nent of pneumonia not entirely excluded less likely though 2-patient did have elevated CRP procalcitonin is mildly elevated 1.25 sputum not collected blood cultures pending 3- patient is afebrile, the white count is slightly up today could be reactive post extensive surgery yesterday and will monitor closely for now continue cefepime and Vanco and monitor kidney function closely Family at the bedside questions answered Dictation was produced using [employer] dictation software. please excuse any gra mmatical, word or spelling errors. Time with Patient: Less than 30
[2023-09-09 17:22] VITALS: RESP 16
--- NOTE | 2023-09-09 18:01 | XR ---
EXAMINATION TYPE: XR chest 1V portable DATE OF EXAM: 09/09/2023 5:51 PM CLINICAL INDICATION:Female, 73 years old with history of worsening shortness of breath; [facility] COMPARISON: Chest radiographs from TECHNIQUE: XR chest 1V portable Frontal view of the chest. FINDINGS: Lungs/Pleura: Multifocal airspace opacities. Blunting of the costophrenic angles. No evidence of pneu mothorax. Pulmonary vascularity: Unremarkable. Heart/mediastinum: Cardiomediastinal silhouette is unremarkable. Musculoskeletal: No acute osseous pathology. Right shoulder fixation screw. IMPRESSION: 1. Multifocal airspace opacities concerning for pneumonia. 2. COPD changes. 3. Bilateral pleural effusions.
[2023-09-09] MEDS ORDERED: CEFEPIME 1 GM in SODIUM CHLORIDE 0.9% 50 ML IVPB SCH (20:00)
[2023-09-09 20:32] VITALS: BP 97/65; PULSE 105
--- NOTE | 2023-09-10 12:23 | P.DS ---
Providers Date of admission: 08/22/23 17:30 Attending physician: Lui Garrett MD Consults: 08/22/23 17:28 Consult Physician Routine Consulting Provider: Ji Portillo Consult Reason/Comments: Arterial insufficiency Do you want consulting provider notified?: Yes Consult Physician Routine Consulting Provider: Ervin Feliciano Consult Reason/Comments: Oncological care Do you want consulting provider notified?: Yes 08/30/23 11:26 Consult Physician Routine Consulting Provider: Brian Franco Consult Reason/Comments: pulm lesions/mass, evaluation for biopsy, liver biopsy inconclusive Do you want consulting provider notified?: Yes 09/04/23 14:34 Consult Physician Routine Consulting Provider: Kash Valderrama Consult Reason/Comments: persistent leukocytosis Do you want consulting provider notified?: Yes 09/06/23 15:31 Consult Physician Routine Consulting Provider: Mathew Roy Consult Reason/Comments: Surgical clearance Do you want consulting provider notified?: Yes 09/07/23 11:04 Consult to Anesthesia Routine Consulting Provider: Anesthesia,Services Consult Reason/Comments: clearance for Left AKA, patient cleared by cardiology Primary care physician: Lj Menard [facility] Course: Final Diagnosis -Bilateral lower extremity pain, swelling with recent history of femorofemoral bypass and left common femoral thromboendarterectomy with graft malfunction, S/P revascularization on September 01 with left axillary to femoral bypass; failed -Postoperative day #1 left above the knee amputation -Possible bilateral lower extremity cellulitis, persistent leukocytosis antibiotics have been changed to IV cefepime and IV vancomycin with ID consultation -Acute kidney injury likely prerenal, improved. 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 Concern for volume overload patient, improved s/p dose of IV lasix. 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 Patient is scheduled for outpatient PET scan. Status post liver biopsy 08/25/2023, likely metastatic disease although specimen was insufficient for diagnosis -Abdominal aortic aneurysm stable from recent study -Currently everyday smoker -Moderate protein calorie malnutrition with a BMI of 23.4 -Hx of uterine cancer with hysterectomy Do Not Resuscitate/Do Not Intubate Patient has been evaluated by Hospice recommending transition to GIP. Family at the bedside. Hospital Course Is a 73-year-old female with medical history of DVT PE on anticoagulation as well as peripheral vascular disease patient is status post femoral to femoral bypass and left common femoral thromboendarterectomy on August 04, 2023. Patient also has a history of cholecystectomy back in June 2023. Patient comes back into the ER for left lower extremity pain swelling and discoloration. She states that she has been having this pain ongoing for the last 7 to 10 days. Patient was found back in June and follow-up with her primary provider to have a liver mass suspicious for metastatic disease. She has been planning to get a PET scan as an outpatient and she has not follow-up with oncology as of yet. Patient underwent a CT of the abdomen pelvis which showed post more femoral bypass changes with fluid collection around the graft. There is now a large hepatic mass with metastatic disease throughout the lungs. Similar infrarenal abdominal aortic aneurysm back to at least January 04, 2023 measuring 3.7 x 4.4 cm. On admission patient was having features of sepsis with a white blood cell count of 18.8, hemoglobin 7.1, INR 1.6, sodium 130, potassium 5.2, chloride 100, bicarb 19, BUN of 68, creatinine of 2.03. Patient's bilirubin AST ALT and lipase were also elevated. Patient was admitted to the hospital under medicine with a consult placed to vascular surgery as well as oncology and interventional radiology for possible biopsy of the liver mass. Patient was started on empiric cefazolin with concerns for cellulitis of the left lower extremity with sepsis. Patient was taken back for further vascular intervention by vascular surgery patient underwent on September 01 right revascularization with left axillary to femoral bypass. Postoperatively patient continued to have significant necrotic changes to the left foot with worsening pain and patient was considered for a left [id number] amputation. Patient did undergo ultrasound-guided biopsy of the liver mass by interventional radiology the specimen was insufficient for gnosis with necrotic tissue. Pulmonary has considered patient to undergo bronchoscopy with biopsy of the lung nodules. Patient was monitored on the medical floor she continued to have significant pain to the left lower extremity there was also concern for vascular congestion and she was evaluated by cardiology. She did receive 2 doses of IV Lasix and an echocardiogram did not reveal any congestive heart failure she has a normal LV function. She was considered high risk for surgical amputation of the left leg. Patient and family were approached on multiple occasions regarding comfort care and hospice patient felt that she was not ready and would like to continue with full code and current treatment plan. Postoperatively she continues to decline she underwent a left [id number] amputation on September 08, 2023. Patient and family have decided that they would like to pursue hospice measures patient was changed to a DO NOT RESUSCITATE. She was evaluated by hospice on September 09, 2023 and the transition was made to general inpatient hospice. Thank you for allowing us to participate in the care of this patient. The impression and plan of care has been dictated by Marialuisa Montejo Nurse Practitioner as directed. Dr. Lia MD I have performed a history and physical examination and medical decision making of this patient, discussed the same with the dictator, and agree with the dictators assessment and plan as written, documented as a scribe. Based on total visit time, I have performed more than 50% of this visit. Patient Condition at Discharge: Serious Plan - Discharge Summary Discharge Rx Participant: No New Discharge Prescriptions: No Action Albuterol Inhaler [Ventolin Hfa Inhaler] 2 puff INHALATION RT-Q4H PRN PRN Reason: Shortness Of Breath Atorvastatin Calcium [Lipitor] 40 mg PO HS Calcium Carbonate/Vitamin D3 [Calcium 600-Vit D3 10 mcg (400 Iu)] 1 tab PO DAILY Fluticasone/Umeclidin/Vilanter [Trelegy Ellipta 100-62.5-25] 1 puff INHALATION RT-DAILY Co Q10 100 mg PO DAILY Rivaroxaban [Xarelto] 20 mg PO DAILY@1500 Discharge Medication List Albuterol Inhaler [Ventolin Hfa Inhaler] 2 puff INHALATION RT-Q4H PRN 09/28/17 [History] Atorvastatin Calcium [Lipitor] 40 mg PO HS 07/11/23 [History] Calcium Carbonate/Vitamin D3 [Calcium 600-Vit D3 10 mcg (400 Iu)] 1 tab PO DAILY 07/11/23 [History] Co Q10 100 mg PO DAILY 07/11/23 [History] Fluticasone/Umeclidin/Vilanter [Trelegy Ellipta 100-62.5-25] 1 puff INHALATION RT-DAILY 07/11/23 [History] Rivaroxaban [Xarelto] 20 mg PO DAILY@1500 08/22/23 [History] Follow up Appointment(s)/Referral(s): Lj Menard DO [Primary Care Provider] - 1-2 days Ad Gruber MD [STAFF PHYSICIAN] - 09/29/23 2:00 pm Activity/Diet/Wound Care/Special Instructions: patient being discharged and switching chart over to new patient chart with [facility] Discharge Disposition: [facility] TO HOSPICE MED FACILTY
--- NOTE | 2023-09-10 12:27 | P.PN ---
Subjective Progress Note Date: 09/09/23 Patient is a 73-year-old female with a past medical history of DVT/PE on anticoagulation, peripheral vascular disease with left leg pain status post femoral to femoral bypass and left common femoral thromboendarterectomy on 08/04/2023, history of cholecystectomy on 07/11/2023 presents to ER with complaints of left lower extremity pain swelling and discoloration. Patient has been having chronic pain which has improved during the last 7 to 10 days. Patient does have history of liver mass and her physician is planning to get PET scan as an outpatient.. Patient has not seen oncology before. Otherwise patient denied any complaints of fever or chills. No nausea vomiting. No diarrhea. No cough or sputum production. No chest pain. EKG showed sinus rhythm. CT of the abdomen pelvis showed post femoral-femoral bypass changes with fluid collection around the graft. 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 Similar infrarenal abdominal aortic aneurysm back to at least 01/04/2023. Measuring 3.7 x 4.4 cm. Laboratory data showed WBC 18.8 hemoglobin 7.1, MCV 88.7 and platelets 473 INR 1.6, sodium 130 potassium 5.2 chloride 100 bicarb is 19 BUN 68, creatinine 2.03 and blood sugar 100 Total bili 1.9 AST 89 ALT 43 and alk phos 428 and albumin 2.5 and lipase level 977 08/24/2023 Patient is seen and evaluated in follow-up today being followed by vascular surgery along with oncology and interventional radiology was consulted for possible biopsy. Patient continued on empiric antibiotics with concerns of possible cellulitis of the lower extremities. Patient evaluated by vascular surgery as patient is recent femoropopliteal bypass and left common femoral thromboendarterectomy with no plans of revascularization interventions at this time. Patient okay to resume anticoagulation once cleared by oncology. Will hold on anticoagulation for now as hemoglobin is low and post 1 unit of PRBCs hemoglobin is 7.7 today. Discussing possible biopsy of the liver and will hold on anticoagulation including holding subcutaneous heparin for now. Interventional radiology consulted and pending. Patient with significant weakness would recommend being evaluated by PT/OT therapy. Overall treatment plan discussed with patient and would like to receive treatment if available. W ill discuss further with oncology once biopsy is performed. 08/25/2023 Patient is seen in follow-up today currently n.p.o. scheduled to undergo ultrasound for possible liver biopsy with interventional radiology. Patient maintained on antibiotics as severe and patient is maintained on Dilaudid. Will also add Tomball for breakthrough pain as patient reports 10/10 on the pain scale. Vascular surgery evaluated the patient with no plans of revascularization or surgical intervention on that left lower extremity. No contraindication to resume anticoagulation and Xarelto is being resumed. Patient is afebrile with no reports of chest pain or shortness of breath. Patient is currently wearing 2 L although does not normally wear oxygen outpatient. Encouraged oral intake and increased activity as tolerated. Patient to undergo biopsy and awaiting pathology as there is concerns of metastasis from the lungs as well. Overall prognosis is poor and guarded left at this time. 08/26/2023 Patient is resting in the bed. Awake alert and oriented x 3. No complaints of chest pain or shortness of breath. Patient still having left lower extremity discoloration of the toes. Swelling is about the same. Right lower extremity swelling did improve. Patient is s/p liver biopsy. Continued on anticoagulation with Xarelto. Patient is on antibiotics, cefazolin. Laboratory showed WBC 13.4 hemoglobin 7.7 and platelets 217 Sodium 130 potassium 3.5 chloride 101 bicarb is 24 BUN 25 and creatinine 0.93 and blood sugar 103 and calcium 7.8 and magnesium 2.2 08/27/2023 Patient is resting in the bed. Awake alert and oriented x 3. No nausea vomiting abdominal pain or diarrhea. Currently on room air. Still having left lower extremity discoloration of the toes and swelling. Hemoglobin 6.9 this morning and is being transfused with 1 unit of PRBC Other laboratory data showed WBC trending down to 12.8 hemoglobin 6.9 and platelets 218 sodium 134 potassium 4.3 chloride 103 bicarb is 23.5 BUN 19 and creatinine 1.0 and blood sugar 96 and calcium 8.1. Patient is on anticoagulation with Xarelto and also antibiotics cefazolin. Pain is controlled. 08/28/2023 Patient is seen and evaluated in follow-up today with multiple medical consultations following including vascular surgery and oncology. Patient continues to have a white count although is trending down and will follow-up with repeat labs. Patient is status post biopsy of the liver which is pending. Patient continues to report significant pain in the left lower extremity with inability to ambulate and was evaluated by vascular surgery with no plans of revascularization and also discussed with the patient about possible amputation for palliative pain relief as there are no plans or availabilities for further surgical intervention on that left lower extremity. Anticoagulation resumed. Patient remains on cefazolin with concerns of possible cellulitis of the lower extremities. Recommend repeat labs in the a.m. and continued PT/OT therapy 08/29/2023 Patient is seen in follow-up this morning with vascular and oncology following. Patient continues to report significant 10/10 pain of the left lower extremity and repeat CT angiogram being ordered. Patient underwent biopsy of the liver although suggestive of metastatic disease, specimen was insufficient for diagnosis. Oncology discussing looking into CT chest to evaluate the lung nodul es for possible biopsy and/or bronchoscopy. Patient is afebrile, white count remains slightly elevated, no reports of chest pain or shortness of breath and patient is on room air. Patient continues on antibiotics with concerns of lower extremity cellulitis as well. Encouraged to increase activity as tolerated although patient reports unable to stand due to the pain on the left leg. Recommend PT/OT therapy daily. 08/30/2023 Patient is seen and evaluated today with vascular surgery following and patient underwent CT angio runoff with plans for vascular intervention on Monday as the graft on the left is down and patient reports continued significant left leg pain and inability to ambulate or place any weight on it due to the pain. Multiple medications including Dilaudid, Tomball, gabapentin have been added with minimal pain relief. Patient also had CT chest with multiple lung nodules noted and oncology following recommending pulmonary consultation for possible bronchoscopy with biopsy for confirmation of diagnosis. Patient maintained on Xarelto and will be placed on hold for surgical intervention for Monday. Patient is afebrile with no reported chest pain or shortness of breath. Patient not eating very much she reports does not have much of an appetite. Patient is getting anxious about overall treatment plan moving forward. Overall prognosis is extremely poor and guarded. Patient remains full code 08/31/2023 Patient is seen in follow-up this morning continues to report severe left lower extremity leg pain with vascular surgery following plans of revascularization and evaluation of the graft on 09/01/[address] Almanza. Patient will be n.p.o. at midnight. Patient was evaluated by pulmonary recommending revascularization prior to bronchoscopy and/or biopsy of the lung nodules. Patient is currently sitting up in the bed on room air and denies any chest pain or shortness of breath. Patient reports is eating and tolerating with no reported nausea or vomiting. 09/01/2023 Patient is seen and evaluated in follow-up this morning currently n.p.o. as patient is scheduled to undergo revascularization intervention with Dr. Almanza this morning. Being taken to the OR currently. Vital signs are stable and we will follow-up and await surgical report. 09/02/2023 Patient is seen in follow-up today on the stepdown unit. Patient underwent left axillary to femoral bypass yesterday secondary to a failed femoral to femoral bypass. Patient was seen in follow-up with vascular surgery today who per patient has discussed possible surgical amputation of the left leg. The left foot today is blackened no pulse noted. Additionally patient's abdomen remains distended. Pulmonary following and recommending bronchoscopy versus thoracentesis for diagnostic measures regarding the right upper lobe mass. Patient is off Xarelto at this time. Her white blood cell count is elevated at 22.9, hemoglobin 9.1., Sodium 132, renal function is stable BUN of 24, creatinine of 0.74. She remains on IV cefazolin. 09/03/2023 Patient is seen in follow-up today on the stepdown unit. She continues to report significant pain to the left lower extremity currently rating it 8 out of 10. She is maintained on a combination of IV Dilaudid every 3 hours, gabapentin, Tomball 7.5. Chest x-ray yesterday afternoon shows similar findings of COPD with irregular patchy infiltrates/pneumonia throughout the mid and lower lungs this is a nodular appearance raises the possibility of either concurrent metastatic disease or an atypical fungal mycobacterial infections. A trace right pleural effusion persists. Patient is seen in follow-up today by vascular surgery with recommendations for possible amputation and again patient is in agreements with this. Discussed metastatic liver disease with patient and again patient is wanting to continue with current treatment plan and for treatment even if it is palliative. Patient is not ready for hospice or comfort measures at this time. Plans for biopsy are on hold until patient finishes treatment for the ischemic limb. Patient understanding of this. Patient continues on IV cefazolin. Her blood work is improving white blood cell count down to 17.4, hemoglobin 7.7, sodium 133, BUN of 23, creatinine of 0.90. Magnesium 1.8. 09/04/2023 Patient is followed up today on the medical unit. Patient continues to report significant pain to the left lower extremity mainly of the foot and is rating it a 10 out of 10. She continues on IV and oral pain medication. Patient was reevaluated by vascular surgery recommending to hold the Xarelto at this time and patient is scheduled to undergo left [id number] amputation on Wednesday, September 06, 2023. She remains on oxygen nasal cannula at 4 L. White blood cell count of 19.6 today, hemoglobin 8.5, sodium 133, BUN of 20, creatinine of 0.70, magnesium 1.7. Chest X-ray from a few days ago continues to show a trace right pleural effusion and sodium down to 131 and patient has been continued on IV fluids. 09/05/2023 Patient is seen in follow-up today on the stepdown unit. Family at the bedside. Patient is scheduled to undergo left-sided [id number] amputation on . Patient continues to report significant pain and discomfort to the left foot and leg. On IV and oral pain medications. Xarelto remains on hold. Chest xray follow up today reveals right greater than left greater bibasilar opacities. Bilateral areas of nodularity redemonstrated compatible with findings seen on CT chest 08/29/23. Correlate for metastatic disease versus atypical fungal/mycobacterial infections. ID was consulted due to the persistent leukocytosis antibiotics have been adjusted patient is on IV vancomycin and IV cefepime. White blood cell count 21.2 today, hgb 8.9, sodium 132, BUN 20, creatinine 0.71, magnesium 1.9. 09/06/2023 Patient is followed up today in the stepdown unit. She is pending surgical intervention for her ischemic leg she will undergo a left-sided hqvje-hkv-roaj amputation today. Patient continues to report pain to the left leg currently 8 out of 10. Patient has an indwelling catheter in place she has been leaking urine around the Benjamin discussed with nursing and they will plan on addressing this and changing the bag out today. She received a dose of IV Lasix yesterday reports that she was breathing much better. Her white blood cell count is 15.4, hemoglobin 7.7, sodium of 132, potassium of 3.7, BUN of 24, creatinine of 0.84. Magnesium 1.9. Procalcitonin level of 1.25. 09/07/2023 Patient is evaluated today family at the bedside. Cardiology was consulted for surgical clearance for the left AKA. Anesthesia to also follow up with the [facility] today. Limited echocardiogram was done showing probably normal LV systolic function. No significant valvular disease. EF is 55 to 60%. Patient received a second dose of IV lasix. Follow up chest xray reveals; COPD with numerous bilateral masslike and nodular densities. Residual but improving airspace disease at the lung bases. 09/08/2023 Patient is seen in follow-up this morning currently awaiting transport to be taken to the OR at this time with vascular surgery with plans on left ab [id number] amputation. Patient was seen and evaluated by cardiology and deemed high risk for surgical intervention but given the fact that the limb is ischemic, patient and family are aware of the risks and willing to proceed with this intervention. Patient is currently n.p.o. and has just received Dilaudid for pain and patient continues to report significant severe pain / with no relief. Will await surgical report. Overall prognosis is extremely poor and guarded at this time. Family and patient are not interested in hospice at this time. 09/09/2023 Patient is evaluated today she is postoperative day #1 left zvfpq-fos-[id number] amputation completed by vascular services. Patient has been seen closely by infectious disease and maintained on antibiotics in the form of IV cefepime and IV vancomycin. Her echocardiogram was completed and reviewed she is status post IV Lasix. She is now reporting worsening shortness of breath. She is confused alert x 2. She has multiple family members at the bedside. She has not been eating or drinking today. She is complaining of significant pain to the left amputation site. Her blood work today reveals a white count of 16.1, hemoglobin 8.7, platelet count of 149, sodium of 133, BUN of 49, creatinine of 1.73. Family this point is considering comfort care and hospice measures for the patient and we will follow-up with them later on this afternoon. Medications reviewed. Review of systems: Constitutional: No reports of fatigue, fever, or chills Cardiovascular: No reports of chest pain or palpitations Respiratory: Reports shortness of breath no cough GI: No reports of nausea, vomiting, or diarrhea, Reports abdominal pain and distention. : No reports of dysuria or retention Neurovascular: reports of generalized weakness, reports continued left lower extremity pain 02/02 All medications have been reviewed PHYSICAL EXAMINATION: Patient is lying in the bed , elderly appearing, thin built, well-developed, awake alert and oriented.. HEENT: Normocephalic. Neck is supple. Pupils reactive. Nostrils clear. Oral cavity is moist. Neck reveals no JVD, carotid bruits, or thyromegaly. CHEST EXAMINATION: Trachea is central. Symmetrical expansion. Bibasilar diminished sounds. Scattered ronchi. CARDIAC: Normal S1, S2 with no gallops. No murmurs ABDOMEN: Soft. Tender on palpation, bowel sounds normal. Large firm liver no michael on the right. No abdominal bruits. Extremities: Bilateral lower extremity swelling with skin dislocation/mottling of the left lower extremity. Neurologically awake, alert, oriented x3. Patient is able to move all extremities.. No focal deficits noted. diffusely weak Skin: No rash or skin lesions. Cyanosis noted on lower extremities as well as upper extremities, more so on the right hand; left foot is discolored and blackened extending up to the ankle. Skin tear on coccyx. Psychiatric: Cooperative. Non-suicidal, anxious. Musculoskeletal: No joint swelling or deformity. Normal range of motion. Assessment: -Bilateral lower extremity pain, swelling with recent history of femorofemoral bypass and left common femoral thromboendarterectomy with graft malfunction, S/P revascularization on September 01 with left axillary to femoral bypass; failed -Postoperative day #1 left above the knee amputation -Possible bilateral lower extremity cellulitis, persistent leukocytosis antibiotics have been changed to IV cefepime and IV vancomycin with ID consultation -Acute kidney injury likely prerenal, improved. 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 Concern for volume overload patient, improved s/p dose of IV lasix. 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 Patient is scheduled for outpatient PET scan. Status post liver biopsy 08/25/2023, likely metastatic disease although specimen was insufficient for diagnosis -Abdominal aortic aneurysm stable from recent study -Currently everyday smoker -Moderate protein calorie malnutrition with a BMI of 23.4 -Hx of uterine cancer with hysterectomy Do Not Resuscitate/Do Not Intubate Plan: -Patient is continued on antibiotics, ID consulation in place; antibiotics have been adjusted to vancomycin and cefepime. -Xarelto resumed post amputation -Oncology following status post biopsy and there was noted necrotic tissue and likely metastatic disease although specimen was insufficient for diagnosis. -Pulmonary has evaluated the patient recommending waiting bronchoscopy with biopsy until left lower extremity revascularization is done and likely will be done on an outpatient basis -Continue with pain management. Patient continues to report severe pain with Dilaudid and Tomball, gabapentin. -PT/OT following patient will require extensive rehabilitation after limb amputation. Overall prognosis remains poor. -Prognosis is extremely poor guarded with multiple medical problems and comorbid conditions. Patient currently remains a full code and would like to receive treatment if there are options available. At this time family and patient are considering comfort care measures and discussed consulting hospice. Will follow-up with family later on today. 35 minutes is spent with his family and patient regarding CODE STATUS and plan of care. The impression and plan of care has been dictated by Marialuisa Montejo, Nurse Practitioner as directed. Dr. Lia MD I have performed a history and physical examination and medical decision making of this patient, discussed the same with the dictator, and agree with the dictators assessment and plan as written, documented as a scribe. Based on total visit time, I have performed more than 50% of this visit. Objective - Vital Signs Vital signs: Vital Signs Temp 97.8 F 09/09/23 08:10 Pulse 89 09/09/23 08:10 Resp 20 09/09/23 08:10 BP 114/59 09/09/23 08:10 Pulse Ox 97 09/09/23 08:10 FiO2 21 08/27/23 20:23 Intake & Output 09/08/23 09/09/23 09/09/23 18:59 06:59 18:59 Intake Total 880 Output Total 600 Balance 280 Intake: IV 600 Blood Product 280 Rc Pheresis As-3 Unit 280 [id number] Output: Urine 400 Estimated Blood Loss 200 Other: Voiding Method Indwelling Catheter Indwelling Catheter Indwelling Catheter - Labs CBC & Chem 7: 09/09/23 08:14 09/09/23 08:14 Labs: Abnormal Lab Results - Last 24 Hours (Table) 09/05/23 09/08/23 09/09/23 Range/Units 08:46 16:11 08:14 WBC 15.0 H (3.8-10.6) k/uL RBC 3.15 L (3.80-5.40) m/uL Hgb 9.1 L (11.4-16.0) gm/dL Hct 29.9 L (34.0-46.0) % MCHC 30.4 L (31.0-37.0) g/dL RDW 18.7 H (11.5-15.5) % Plt Count 136 L (150-450) k/uL Neutrophils # (1.3-7.7) k/uL Lymphocytes # (1.0-4.8) k/uL Sodium 133 L (137-145) mmol/L Chloride 109 H (98-107) mmol/L Carbon Dioxide 19 L (22-30) mmol/L BUN 49 H (7-17) mg/dL Creatinine 1.73 H (0.52-1.04) mg/dL Calcium 8.1 L (8.4-10.2) mg/dL Crossmatch See Detail 09/09/23 Range/Units 08:14 WBC 16.1 H (3.8-10.6) k/uL RBC 3.06 L (3.80-5.40) m/uL Hgb 8.7 L (11.4-16.0) gm/dL Hct 29.6 L (34.0-46.0) % MCHC 29.5 L (31.0-37.0) g/dL RDW 18.5 H (11.5-15.5) % Plt Count 149 L (150-450) k/uL Neutrophils # 14.7 H (1.3-7.7) k/uL Lymphocytes # 0.5 L (1.0-4.8) k/uL Sodium (137-145) mmol/L Chloride (98-107) mmol/L Carbon Dioxide (22-30) mmol/L BUN (7-17) mg/dL Creatinine (0.52-1.04) mg/dL Calcium (8.4-10.2) mg/dL Crossmatch Microbiology - Last 24 Hours (Table) 09/05/23 08:46 Blood Culture - Preliminary Blood Assessment and Plan Time with Patient: Greater than 30
--- NOTE | 2023-09-11 18:10 | CDI ---
Documentation Clarification Form Date: 09/11/2023 05:53:07 PM From: Lizy Bonilla Phone: Admit Date: 08/22/2023 05:30:00 PM Patient Name: Opal Atkinson Visit Number: [id number] Discharge Date: 09/09/2023 09:07:00 PM ATTENTION: The Clinical Documentation Specialists (CDI) and [facility] Coding Staff appreciate your assistance in clarifying documentation. Please respond to the clarification below the line at the bottom and electronically sign. The CDI & [facility] Coding staff will review the response and follow-up if needed. Please note: Queries are made part of the Legal Health Record. If you have any questions, please contact the author of this message via ITS. Dr. Oxana Fitzgerald Sepsis is documented per DC Summary which may lack sufficient clinical evidence/support in the medical record. Additional clarification is requested. History/Risk Factors: 73yo F, Cx lungs and liver, DMII w hyperglycemia, DVT LLE, SIXTO, mod malnutrition, hyponatremia, AAA, BLE Cellulitis, anemia, smoker Clinical Indicators: 08/22 T 97.6 WV 67- 79 R 20- 18 BP92/66 141/60 O2 Sat 98 WBC: 18.8 Treatment: started on empiric cefazolin with concerns forcellulitis of the left lower extremitywithsepsis After work up and study, please clarify which diagnosis is most appropriate? [ ] Sepsis ruled out [ ] Sepsis treated prophylactically [ x] Sepsis is a valid diagnosis as evidence by the following: (Please add rationale): [ ] Other, please specify [ ] Unable to determine (Template Last Reviewed: June 2023) MTDD
== END 2023-09-09 21:07 | disposition hospice, inpatient (51) | DRG 239 ==
LOC: EC 12:37 → 5NMEDONC 17:30 → 3SCARD 09-01 16:38
PROVIDERS: ADMIT Internal Medicine; ATTEND Internal Medicine
PROC: 30233N1 Transfusion of Nonautologous Red Blood Cells into Peripheral Vein, Percutaneous Approach (ICD-10-PCS; 2023-08-23)
PROC: 0FB03ZX Excision of Liver, Percutaneous Approach, Diagnostic (ICD-10-PCS; 2023-08-25)
PROC: 041L0JJ Bypass Left Femoral Artery to Left Femoral Artery with Synthetic Substitute, Open Approach (ICD-10-PCS; 2023-09-01)
PROC: 0Y6D0Z2 Detachment at Left Upper Leg, Mid, Open Approach (ICD-10-PCS; principal; 2023-09-08 12:30)
DX: T82.868A Thrombosis due to vascular prosthetic devices, implants and grafts, initial encounter (principal); A41.9 Sepsis, unspecified organism; C78.01 Secondary malignant neoplasm of right lung; I74.3 Embolism and thrombosis of arteries of the lower extremities; N17.9 Acute kidney failure, unspecified; E44.0 Moderate protein-calorie malnutrition; C78.02 Secondary malignant neoplasm of left lung; C78.7 Secondary malignant neoplasm of liver and intrahepatic bile duct; I82.412 Acute embolism and thrombosis of left femoral vein; J91.8 Pleural effusion in other conditions classified elsewhere; L03.116 Cellulitis of left lower limb; L03.115 Cellulitis of right lower limb; E87.1 Hypo-osmolality and hyponatremia; I45.2 Bifascicular block; L76.34 Postprocedural seroma of skin and subcutaneous tissue following other procedure; I71.40 Abdominal aortic aneurysm, without rupture, unspecified; E11.51 Type 2 diabetes mellitus with diabetic peripheral angiopathy without gangrene; I70.222 Atherosclerosis of native arteries of extremities with rest pain, left leg; J44.9 Chronic obstructive pulmonary disease, unspecified; I27.20 Pulmonary hypertension, unspecified; I71.43 Infrarenal abdominal aortic aneurysm, without rupture; Z66 Do not resuscitate; Z51.5 Encounter for palliative care; D63.8 Anemia in other chronic diseases classified elsewhere; I51.3 Intracardiac thrombosis, not elsewhere classified; E88.A Wasting disease (syndrome) due to underlying condition; R54 Age-related physical debility; F17.210 Nicotine dependence, cigarettes, uncomplicated; Z95.820 Peripheral vascular angioplasty status with implants and grafts; E87.5 Hyperkalemia; E78.5 Hyperlipidemia, unspecified; G89.29 Other chronic pain; Y83.2 Surgical operation with anastomosis, bypass or graft as the cause of abnormal reaction of the patient, or of later complication, without mention of misadventure at the time of the procedure; Z96.641 Presence of right artificial hip joint; Z79.01 Long term (current) use of anticoagulants; Z86.718 Personal history of other venous thrombosis and embolism; Z85.42 Personal history of malignant neoplasm of other parts of uterus; Z79.51 Long term (current) use of inhaled steroids; Z86.79 Personal history of other diseases of the circulatory system; Z86.711 Personal history of pulmonary embolism; Z82.49 Family history of ischemic heart disease and other diseases of the circulatory system; Z79.899 Other long term (current) drug therapy; Z80.1 Family history of malignant neoplasm of trachea, bronchus and lung; Z68.23 Body mass index [BMI] 23.0-23.9, adult
CPT/HCPCS: 36415; 47000; 71045; 71046; 71275; 74176; 75635; 76604; 76942; 80048; 80053; 80202; 82105; 82150; 82378; 82525; 82607; 82728; 82747; 83540; 83550; 83690; 83735; 83880; 83921; 84145; 85025; 85027; 85610; 85730; 86140; 86301; 86850; 86900; 86901; 86920; 87040; 88307; 93005; 93308; 94640; 94760; 96361; 96374; 96375; 96376; 99285

== ENCOUNTER 2023-09-09 20:14 | Inpatient (IN) | payer MEDICAID ==
[2023-09-09] MEDS ORDERED: ACETAMINOPHEN SUPPOSITORY 650 MG SUPP RECTAL PRN (20:30)
[2023-09-09] MEDS ORDERED: ARTIFICIAL TEARS-HYPROMELLOSE DROPS 15 ML BTL BOTH EYES PRN (20:30)
[2023-09-09] MEDS ORDERED: ONDANSETRON 4 MG/2 ML VIAL IVP PRN (20:30)
[2023-09-09] MEDS: LORazepam 2 MG/ML INJ IV PRN (21:15)
[2023-09-09] MEDS: MORPHINE SULFATE (100 MG/2 ML) 100 MG in SODIUM CHLORIDE 0.9% 100 ML IV SCH (21:26)
[2023-09-09 22:15] VITALS: RESP 30
[2023-09-09] MEDS: GLYCOPYRROLATE 0.2 MG/ML 2 ML VIAL IVP PRN (22:23)
[2023-09-09] MEDS: ATROPINE OPHTH SOLN 1% 5ML BTL SUBLINGUAL PRN (22:39)
--- NOTE | 2023-09-10 12:30 | P.HPIM ---
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 Patient also has a history of cholecystectomy back in June 2023. Patient comes back into the ER for left lower extremity pain swelling and discoloration. She states that she has been having this pain ongoing for the last 7 to 10 days. Patient was found back in June and follow-up with her primary provider to have a liver mass suspicious for metastatic disease. She has been planning to get a PET scan as an outpatient and she has not follow-up with oncology as of yet. Patient underwent a CT of the abdomen pelvis which showed post more femoral bypass changes with fluid collection around the graft. There is now a large hepatic mass with metastatic disease throughout the lungs. Similar infrarenal abdominal aortic aneurysm back to at least January 04, 2023 measuring 3.7 x 4.4 cm. On admission patient was having features of sepsis with a white blood cell count of 18.8, hemoglobin 7.1, INR 1.6, sodium 130, potassium 5.2, chloride 100, bicarb 19, BUN of 68, creatinine of 2.03. Patient's bilirubin AST ALT and lipase were also elevated. Patient was admitted to the hospital under medicine with a consult placed to vascular surgery as well as oncology and interventional radiology for possible biopsy of the liver mass. Patient was started on empiric cefazolin with concerns for cellulitis of the left lower extremity with sepsis. Patient was taken back for further vascular intervention by vascular surgery patient underwent on September 01 right revascularization with left axillary to femoral bypass. Postoperatively patient continued to have significant necrotic changes to the left foot with worsening pain and patient was considered for a left [id number] amputation. Patient did undergo ultrasound-guided biopsy of the liver mass by interventional radiology the specimen was insufficient for gnosis with necrotic tissue. Pulmonary has considered patient to undergo bronchoscopy with biopsy of the lung nodules. Patient was monitored on the medical floor she continued to have significant pain to the left lower extremity there was also concern for vascular congestion and she was evaluated by cardiology. She did receive 2 doses of IV Lasix and an echocardiogram did not reveal any congestive heart failure she has a normal LV function. She was considered high risk for surgical amputation of the left leg. Patient and family were approached on multiple occasions regarding comfort care and hospice patient felt that she was not ready and would like to continue with full code and current treatment plan. Postoperatively she continues to decline she underwent a left fxikx-nhb-doib amputation on September 08, 2023. Patient and family have decided that they would like to pursue hospice measures patient was changed to a DO NOT RESUSCITATE. She was evaluated by hospice on September 09, 2023 and the transition was made to general inpatient hospice. REVIEW OF SYSTEMS: CONSTITUTIONAL: No fever, no malaise, Reports fatigue. Reports pain. HEENT: No recent visual problems or hearing problems. Denied any sore throat. CARDIOVASCULAR: No chest pain, orthopnea, PND, no palpitations, no syncope. PULMONARY: No shortness of breath, no cough, no hemoptysis. GASTROINTESTINAL: No diarrhea, no nausea, no vomiting, no abdominal pain. NEUROLOGICAL: No headaches, no weakness, no numbness. HEMATOLOGICAL: Denies any bleeding or petechiae. GENITOURINARY: Denies any burning micturition, frequency, or urgency. MUSCULOSKELETAL/RHEUMATOLOGICAL: Denies any joint pain, swelling, or any muscle pain. ENDOCRINE: Denies any polyuria or polydipsia. The rest of the 14-point review of systems is negative. PHYSICAL EXAMINATION: GENERAL: The patient is alert and oriented x1-2, not in any acute distress. Well developed, well nourished. on 4L of oxygen. HEENT: Pupils are round and equally reacting to light. EOMI. No scleral icterus. No conjunctival pallor. Normocephalic, atraumatic. No pharyngeal erythema. No thyromegaly. CARDIOVASCULAR: S1 and S2 present. No murmurs, rubs, or gallops. PULMONARY: Chest is clear to auscultation, no wheezing or crackles. ABDOMEN: Soft, nontender, nondistended, normoactive bowel sounds. No palpable organomegaly. MUSCULOSKELETAL: No joint swelling or deformity. S/P Left AKA dressing intact. EXTREMITIES: No cyanosis, clubbing, or pedal edema. NEUROLOGICAL: Diffuse weakness. SKIN: No rashes. Assessment and Plan -Bilateral lower extremity pain, swelling with recent history of femorofemoral bypass and left common femoral thromboendarterectomy with graft malfunction, S/P revascularization on September 01 with left axillary to femoral bypass; failed -Postoperative day #1 left above the knee amputation -Possible bilateral lower extremity cellulitis and sepsis, persistent leukocytosis treated with IV cefepime and IV vancomycin -Acute kidney injury likely prerenal, improved and now worsening due to ATN. -History of DVT/PE and on anticoagulation with Xarelto at home, was resumed post AKA. -Anemia, likely of chronic disease -Hyponatremia secondary to poor oral intake, worsening while on IV fluids. Concern for volume overload patient, improved s/p dose of IV lasix. 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 Patient is scheduled for outpatient PET scan. Status post liver biopsy 08/25/2023, likely metastatic disease although specimen was insufficient for diagnosis -Abdominal aortic aneurysm stable from recent study -Currently everyday smoker -Moderate protein calorie malnutrition with a BMI of 23.4 -Hx of uterine cancer with hysterectomy Do Not Resuscitate/Do Not Intubate Patient has been evaluated by Hospice recommending transition to [facility]. Family at the bedside. Thank you for allowing us to participate in the care of this patient. The impression and plan of care has been dictated by Marialuisa Montejo, Nurse Practitioner as directed. Dr. Lia MD I have performed a history and physical examination and medical decision making of this patient, discussed the same with the dictator, and agree with the dictators assessment and plan as written, documented as a scribe. Based on total visit time, I have performed more than 50% of this visit. 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 History of Any Multi-Drug Resistant Organisms: None Reported Past Surgical History: Back Surgery, Hysterectomy, Orthopedic Surgery, Tonsillectomy Additional Past Surgical History / Comment(s): Ectopic with salpingectomy/ovary removed then hysterectomy d/t cancer and has part of one ovary left, kyphoplasty, R shoulder fracture with surgery/screws in place, right hip replacement Past Anesthesia/Blood Transfusion Reactions: No Reported Reaction Additional Past Anesthesia/Blood Transfusion Reaction / Comment(s): Pt believes she may have received blood years ago with ectopic . Past Psychological History: No Psychological Hx Reported Additional Psychological History / Comment(s): Pt resides alone in [facility]. She is independent. Smoking Status: Current every day smoker Past Alcohol Use History: None Reported Additional Past Alcohol Use History / Comment(s): Pt started smoking in 1965 and was a 2 ppd smoker. Last September 2016 she started cutting back and is now down to 2 cigarettes a day to week. Past Drug Use History: None Reported Additional Drug Use History / Comment(s): None - Past Family History Mother Family Medical History: Dementia, Hypertension Additional Family Medical History / Comment(s): ALZHEIMERS Father Family Medical History: Myocardial Infarction (NH) Additional Family Medical History / Comment(s): AT AGE 59 FROM [place] Brother(s) Family Medical History: Myocardial Infarction (NH) Additional Family Medical History / Comment(s): ALSO AT AGE 59 FROM [place] AND A 2ND BROTHER W/VASCULAR DISEASE. Sister(s) Family Medical History: Cancer Additional Family Medical History / Comment(s): LUNG CANCER(SMOKER) Medications and Allergies Home Medications Medication Instructions Recorded Confirmed Type Albuterol Inhaler [Ventolin Hfa 2 puff INHALATION RT-Q4H PRN 09/28/17 08/22/23 History Inhaler] Atorvastatin Calcium [Lipitor] 40 mg PO HS 07/11/23 08/22/23 History Calcium Carbonate/Vitamin D3 1 tab PO DAILY 07/11/23 08/22/23 History [Calcium 600-Vit D3 10 mcg (400 Iu)] Co Q10 100 mg PO DAILY 07/11/23 08/22/23 History Fluticasone/Umeclidin/Vilanter 1 puff INHALATION RT-DAILY 07/11/23 08/22/23 History [Trelegy Ellipta 100-62.5-25] Rivaroxaban [Xarelto] 20 mg PO DAILY@1500 08/22/23 08/22/23 History Allergies Allergy/AdvReac Type Severity Reaction Status Date / Time No Known Allergies Allergy Verified 09/08/23 11:49 Physical Exam Vitals: Vital Signs Resp 09/09/23 21:55 30 H 09/09/23 21:45 28 H 09/09/23 21:30 28 H Intake and Output 09/09/23 09/10/23 09/10/23 22:59 06:59 14:59 Intake Total 4.063 Balance 4.063 Intake: Intake, IV Titration 4.063 Amount Morphine Sulfate (100 mg/ 4.063 2 ml) 100 mg In Sodium Chloride 0.9% 100 ml @ 1 MG/HR 1.02 mls/hr IV . Q24H [facility] Rx#:[id number] Other: Weight 59.874 kg Assessment and Plan Time with Patient: Less than 30
--- NOTE | 2023-09-10 21:31 | P.DS ---
Providers Date of admission: 09/09/23 21:06 Attending physician: Lui Garrett MD Primary care physician: [facility] Course: Patient on 09/09/2023 at 2236. Preliminary cause of , sepsis from ischemic limb, metastatic cancer with unknown origin. 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 Patient also has a history of cholecystectomy back in June 2023. Patient comes back into the ER for left lower extremity pain swelling and discoloration. She states that she has been having this pain ongoing for the last 7 to 10 days. Patient was found back in June and follow-up with her primary provider to have a liver mass suspicious for metastatic disease. She has been planning to get a PET scan as an outpatient and she has not follow-up with oncology as of yet. Patient underwent a CT of the abdomen pelvis which showed post more femoral bypass changes with fluid collection around the graft. There is now a large hepatic mass with metastatic disease throughout the lungs. Similar infrarenal abdominal aortic aneurysm back to at least January 04, 2023 measuring 3.7 x 4.4 cm. On admission patient was having features of sepsis with a white blood cell count of 18.8, hemoglobin 7.1, INR 1.6, sodium 130, potassium 5.2, chloride 100, bicarb 19, BUN of 68, creatinine of 2.03. Patient's bilirubin AST ALT and lipase were also elevated. Patient was admitted to the hospital under medicine with a consult placed to vascular surgery as well as oncology and interventional radiology for possible biopsy of the liver mass. Patient was started on empiric cefazolin with concerns for cellulitis of the left lower extremity with sepsis. Patient was taken back for further vascular intervention by vascular surgery patient underwent on September 01 right revascularization with left axillary to femoral bypass. Postoperatively patient continued to have si gnificant necrotic changes to the left foot with worsening pain and patient was considered for a left vwoeo-bxw-sauf amputation. Patient did undergo ultrasound-guided biopsy of the liver mass by interventional radiology the specimen was insufficient for gnosis with necrotic tissue. Pulmonary has considered patient to undergo bronchoscopy with biopsy of the lung nodules. Patient was monitored on the medical floor she continued to have significant pain to the left lower extremity there was also concern for vascular congestion and she was evaluated by cardiology. She did receive 2 doses of IV Lasix and an echocardiogram did not reveal any congestive heart failure she has a normal LV function. She was considered high risk for surgical amputation of the left leg. Patient and family were approached on multiple occasions regarding comfort care and hospice patient felt that she was not ready and would like to continue with full code and current treatment plan. Postoperatively she continues to decline she underwent a left zbwoc-kiz-[id number] amputation on September 08, 2023. Patient and family have decided that they would like to pursue hospice measures patient was changed to a DO NOT RESUSCITATE. She was evaluated by hospice on September 09, 2023 and the transition was made to general inpatient hospice. REVIEW OF SYSTEMS: CONSTITUTIONAL: No fever, no malaise, Reports fatigue. Reports pain. HEENT: No recent visual problems or hearing problems. Denied any sore throat. CARDIOVASCULAR: No chest pain, orthopnea, PND, no palpitations, no syncope. PULMONARY: No shortness of breath, no cough, no hemoptysis. GASTROINTESTINAL: No diarrhea, no nausea, no vomiting, no abdominal pain. NEUROLOGICAL: No headaches, no weakness, no numbness. HEMATOLOGICAL: Denies any bleeding or petechiae. GENITOURINARY: Denies any burning micturition, frequency, or urgency. MUSCULOSKELETAL/RHEUMATOLOGICAL: Denies any joint pain, swelling, or any muscle pain. ENDOCRINE: Denies any polyuria or polydipsia. The rest of the 14-point review of systems is negative. PHYSICAL EXAMINATION: GENERAL: The patient is alert and oriented x1-2, not in any acute distress. Well developed, well nourished. on 4L of oxygen. HEENT: Pupils are round and equally reacting to light. EOMI. No scleral icterus. No conjunctival pallor. Normocephalic, atraumatic. No pharyngeal erythema. No thyromegaly. CARDIOVASCULAR: S1 and S2 present. No murmurs, rubs, or gallops. PULMONARY: Chest is clear to auscultation, no wheezing or crackles. ABDOMEN: Soft, nontender, nondistended, normoactive bowel sounds. No palpable o rganomegaly. MUSCULOSKELETAL: No joint swelling or deformity. S/P Left AKA dressing intact. EXTREMITIES: No cyanosis, clubbing, or pedal edema. NEUROLOGICAL: Diffuse weakness. SKIN: No rashes. Assessment and Plan -Bilateral lower extremity pain, swelling with recent history of femorofemoral bypass and left common femoral thromboendarterectomy with graft malfunction, S/P revascularization on September 01 with left axillary to femoral bypass; failed -Postoperative day #1 left above the knee amputation -Possible bilateral lower extremity cellulitis and sepsis, persistent leukocytosis treated with IV cefepime and IV vancomycin -Acute kidney injury likely prerenal, improved and now worsening due to ATN. -History of DVT/PE and on anticoagulation with Xarelto at home, was resumed post AKA. -Anemia, likely of chronic disease -Hyponatremia secondary to poor oral intake, worsening while on IV fluids. Concern for volume overload patient, improved s/p dose of IV lasix. 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 Patient is scheduled for outpatient PET scan. Status post liver biopsy 08/25/2023, likely metastatic dise ase although specimen was insufficient for diagnosis -Abdominal aortic aneurysm stable from recent study -Currently everyday smoker -Moderate protein calorie malnutrition with a BMI of 23.4 -Hx of uterine cancer with hysterectomy Do Not Resuscitate/Do Not Intubate Patient has been evaluated by Hospice recommending transition to [facility]. Family at the bedside. Thank you for allowing us to participate in the care of this patient. The impression and plan of care has been dictated by Marialuisa Montejo, Nurse Practitioner as directed. Dr. Lia MD I have performed a history and physical examination and medical decision making of this patient, discussed the same with the dictator, and agree with the dictators assessment and plan as written, documented as a scribe. Based on total visit time, I have performed more than 50% of this visit. Plan - Discharge Summary New Discharge Prescriptions: No Action Albuterol Inhaler [Ventolin Hfa Inhaler] 2 puff INHALATION RT-Q4H PRN PRN Reason: Shortness Of Breath Atorvastatin Calcium [Lipitor] 40 mg PO HS Calcium Carbonate/Vitamin D3 [Calcium 600-Vit D3 10 mcg (400 Iu)] 1 tab PO DAILY Fluticasone/Umeclidin/Vilanter [Trelegy Ellipta 100-62.5-25] 1 puff INHALATION RT-DAILY Co Q10 100 mg PO DAILY Rivaroxaban [Xarelto] 20 mg PO DAILY@1500 Discharge Medication List Albuterol Inhaler [Ventolin Hfa Inhaler] 2 puff INHALATION RT-Q4H PRN 09/28/17 [History] Atorvastatin Calcium [Lipitor] 40 mg PO HS 07/11/23 [History] Calcium Carbonate/Vitamin D3 [Calcium 600-Vit D3 10 mcg (400 Iu)] 1 tab PO DAILY 07/11/23 [History] Co Q10 100 mg PO DAILY 07/11/23 [History] Fluticasone/Umeclidin/Vilanter [Trelegy Ellipta 100-62.5-25] 1 puff INHALATION RT-DAILY 07/11/23 [History] Rivaroxaban [Xarelto] 20 mg PO DAILY@1500 08/22/23 [History] Discharge Disposition: - Preliminary Cause of Preliminary Cause of : sepsis from ischemic limb
== END 2023-09-10 01:50 | disposition expired | DRG 951 ==
LOC: 3SCARD 21:06
PROVIDERS: ADMIT Internal Medicine; ATTEND Internal Medicine
DX: Z51.5 Encounter for palliative care (principal); N17.0 Acute kidney failure with tubular necrosis; T87.44 Infection of amputation stump, left lower extremity; T82.898A Other specified complication of vascular prosthetic devices, implants and grafts, initial encounter; T81.44XA Sepsis following a procedure, initial encounter; E87.1 Hypo-osmolality and hyponatremia; E44.0 Moderate protein-calorie malnutrition; C78.7 Secondary malignant neoplasm of liver and intrahepatic bile duct; C78.00 Secondary malignant neoplasm of unspecified lung; Z66 Do not resuscitate; Y84.8 Other medical procedures as the cause of abnormal reaction of the patient, or of later complication, without mention of misadventure at the time of the procedure; E87.5 Hyperkalemia; H26.9 Unspecified cataract; D63.8 Anemia in other chronic diseases classified elsewhere; Z68.23 Body mass index [BMI] 23.0-23.9, adult; I71.40 Abdominal aortic aneurysm, without rupture, unspecified; Z85.42 Personal history of malignant neoplasm of other parts of uterus; Z90.710 Acquired absence of both cervix and uterus